=== PATIENT | female | born 1945 | race Caucasian/White ===

== ENCOUNTER 2021-12-03 08:33 | Emergency (ER) | payer MEDICARE, SELFPAY ==
--- NOTE | ~2021-12-03 | XR_ITS ---
EXAMINATION: XR WRIST AND HAND-RIGHT CLINICAL INFORMATION: History of fall. Pain. COMPARISON: None TECHNIQUE: 4 views of the right hand and right wrist. FINDINGS: Marked diffuse osteopenia. Comminuted fractures are present at the distal right radial metaphysis with extension of fracture line to the articular surface. The distal radioulnar alignment is intact. The radiocarpal alignments are intact. Severe osteoarthrosis of the first carpometacarpal joint and significant overlying soft tissue swelling. Significant osteoarthrosis of the DIP joints of the second and third digits. XR/XR hand wrist RT IMPRESSION: 1. Abnormal study. Marked diffuse osteopenia and comminuted fractures are noted at the distal right radial metaphysis with extension of fracture line to the articular surface. 2. Severe osteoarthrosis of the first carpometacarpal joint and osteoarthrosis of the DIP joints of the second and third digits.
[2021-12-03 08:33] VITALS: BP 108/59; PULSE 64; RESP 18; TEMP 36.3; O2SAT 96; BMI 31.7
--- NOTE | 2021-12-03 09:35 | ED_ITS ---
HPI - Extremity Problem General Chief complaint: Extremity Injury, Upper Stated complaint: Fall T-1/ R wrist pain Time Seen by Provider: 12/03/21 08:45 Source: patient Mode of arrival: ambulatory Limitations: no limitations History of Present Illness HPI Narrative: 76-year-old female right hand dominant with a history of asthma, high blood pressure, high cholesterol, anxiety, depression, chronic back pain on Dilaudid, hypothyroidism, breast cancer status post resection and radiation here with reports of right hand and wrist pain after a mechanical fall yesterday. Patient tells me she went to open the Fridge and when she turned around she lost her balance falling catching herself with her right hand. No head injury or loss of consciousness. Patient is on 81 mg of aspirin daily. Patient denies any heada zia, neck pain, weakness, numbness, tingling. She does report pain in the right hand and wrist which is worsened with movement. Related Data Allergies Allergy/AdvReac Type Severity Reaction Status Date / Time No Known Allergies Allergy Unverified 04/13/20 14:56 [No Known Allergies*] Review of Systems Review of Systems: Yes all other systems are reviewed and are negative Constitutional: Constitutional: Reports no additional constitutional complaints, Denies body ache(s), Denies chills, Denies fever(s), Denies headache(s) and Denies weakness Eyes: Eyes: Reports no additional eye complaints and Denies change in vision ENT: Reports system reviewed and no additional complaints, except as documented, Denies dizziness, Denies headache(s), Denies nasal congestion, Denies nasal discharge and Denies neck pain Cardiovascular: Cardiovascular: Reports no additional cardiovascular complaints, Denies chest pain, Denies leg edema and Denies dyspnea Respiratory: Respiratory: Reports no additional respiratory complaints, Denies cough and Denies dyspnea Gastrointestinal: Gastrointestinal: Reports no additional gastrointestinal complaints, Denies abdominal pain, Denies diarrhea, Denies nausea and Denies vomiting Genitourinary: Genitourinary: Reports no additional female genitourinary complaints and Denies urinary incontinence Musculoskeletal: Musculoskeletal: Reports no additional musculoskeletal complaints, Denies back pain, Reports arthralgias, Reports joint swelling, Reports limited range of motion, Denies neck pain, Denies numbness and Denies tingling Integumentary/Breasts: Skin/Breast: Reports system reviewed and no additional complaints, except as docu and Denies rash Neurologic: Reports system reviewed and no additional complaints, except as d ocumented, Denies Abnormal speech present, Denies dizziness, Denies headache(s), Denies numbness, Denies tingling and Denies weakness PMFSH Past Medical History Attestation statement: The following information was validated with the patient. Source: old records reviewed and nursing notes reviewed Social History Social History Advance Directives: Yes Advance Directives Information Provided: Yes Advance Directives on File: No Physical Exam Vital Signs: Vital Signs: Last Vital Signs Temp 97.3 F 12/03/21 08:33 Pulse 64 12/03/21 08:33 Resp 18 12/03/21 08:33 BP 108/59 L 12/03/21 08:33 Pulse Ox 96 12/03/21 08:33 BMI result Body Mass Index 31.7 Const: General: cooperative, healthy appearing, comfortable and no acute distress Orientation/consciousness: patient oriented x3 Limitations: no limitations HEENT: Head: Yes normal to inspection Ears: hearing grossly normal bilaterally General nose exam: Normal external nose present Face and sinus: Yes normal facial exam Mouth: Normal oral and palatal mucosa present Throat: Yes posterior oropharynx normal Eyes: General: appearance normal, both eyes and all related structures Pupils: Equal, round and reactive pupils present Neck: Neck: Yes normal visual inspection Chest: Chest palpation & inspection: normal inspection of the chest Resp: Effort & Inspection: normal respiratory effort Auscultation: clear to auscultation bilaterally Cardio: Rate: regular rate Rhythm: regular rhythm Peripheral pulses: Peripheral pulses 2+ throughout GI: Inspection: Yes normal to inspection Palpation (GI): Soft to palpation and nontender Auscultation: normal bowel sounds Back/Spine/Pelvis: Thoracic/Lumbar Spine: thoracic and lumbar spine normal to inspection Skin: General skin exam: no rashes or lesions noted Neuro: General: patient oriented x3, no focal motor deficits and normal sensation to monofilament Cranial nerves: Yes CN's II-XII intact bilaterally, Yes Equal, round and reactive pupils present, Yes Bilaterally intact EOM present, Yes Nystagmus not present, Yes Normal facial strength present and Yes Midline tongue present Cognition (Neuro): normal cognition Speech: No Abnormal speech present Gait exam (Neuro): Normal gait present Motor exam (neuro): 5/5 motor strength present throughout Sensory Exam: Normal double simultaneous stimulation for sensation Extrem: Other: Swelling/deformity/pain to distal right wrist. 2+ radial and ulnar pulses. Sensation is intact distally. Limited range of motion due to pain General: Yes normal to inspection Course Course Course Narrative: 76 yo female right hand dominant here with right hand/wrist pain/swelling after a mechanical fall yesterday. No head injury or LOC. Will check x-rays Reevaluation(s) Reevaluation #1: X-ray show a distal radial fracture with intra-articular involvement. I discussed the case with Dr. Boyer. Recommend sugar-tong splint, sling and follow-up with orthopedics outpatient. Patient takes hydromorphone 4 mg 3 times daily for chronic pain. She is prescribed this Friday her primary care doctor. She is asking me if she can take additional doses. I did recommend she speak to them prior to doing this. She can add Tylenol in the meantime. Reviewed rice. Reviewed worrisome signs and symptoms of when to return to the emergency department. Comfortable discharge home. MDM - Extremity (Nontraumatic) Medical Records Attestation: I reviewed the patient's medical records. Lab Data Attestation: I reviewed the patient's lab results. Imaging Data right hand/wrist x-ray: Attestation: I personally reviewed and interpreted this imaging study as follows: Radiologist's impression: 1. Abnormal study. Marked diffuse osteopenia and comminuted fractures are noted at the distal right radial metaphysis with extension of fracture line to the articular surface. 2. Severe osteoarthrosis of the first carpometacarpal joint and osteoarthrosis of the DIP joints of the second and third digits Procedures Orthopedic Splinting/Casting Injury #1: Side: right Upper Extremity Injury Location: wrist Upper Extremity Immobilizer: sugar tong splint Additional Comments: sling splint by Estrella Paulson [facility] ED techs Discharge Plan Discharge Clinical Impression: Distal radius fracture, right Patient Disposition: Home, Self-Care Instructions: Arm Fracture in Adults (ED) Additional Instructions: This sling is to be used with moving around This splint must stay on at all times. Avoid getting the splint wet Please elevate your arm as much as possible Take your home pain medications You may continue with Tylenol as well Call orthopedics for follow-up appointment Referrals: [facility] [Provider Group] - 1 week Interventions: ED Discharge Assessment Last Done: 12/03/21 11:02 Discharge Date/Time: 12/03/21 11:03
== END 2021-12-03 11:03 | disposition home or self-care (01) ==
PROVIDERS: Emergency Provider Emergency Medicine; PCP Internal Medicine
DX: S52.91XA Unspecified fracture of right forearm, initial encounter for closed fracture (principal); G89.29 Other chronic pain; M54.9 Dorsalgia, unspecified; J45.909 Unspecified asthma, uncomplicated; Z79.82 Long term (current) use of aspirin; Z79.891 Long term (current) use of opiate analgesic; W18.30XA Fall on same level, unspecified, initial encounter; Y93.9 Activity, unspecified; Y92.000 Kitchen of unspecified non-institutional (private) residence as the place of occurrence of the external cause; Y99.9 Unspecified external cause status
CPT/HCPCS: 29125; 73110; 73130; 99284

== ENCOUNTER 2021-12-07 07:35 | Outpatient (REF) | payer MEDICARE, SELFPAY ==
--- NOTE | ~2021-12-07 | XR_ITS ---
EXAMINATION: XR WRIST, RIGHT CLINICAL INFORMATION: Pain COMPARISON: Radiographs right wrist and hand 12/03/2021 TECHNIQUE: PA, lateral, and oblique views of the right wrist. FINDINGS: Diffuse osteopenia. Comminuted intra-articular fracture of the distal radius is stable in orientation. Carpal rows are maintained without carpal bone fracture. Severe degenerative changes of the first carpal metacarpal joint with associated subluxation of the fifth metacarpal. Degenerative changes of the IP joints within the fifth finger are suboptimally visualized but demonstrate prominent degenerative changes. There appears to be mild subluxation of the distal phalanx of the fifth digit. XR/XR wrist RT min 3V IMPRESSION: Stable appearance of comminuted intra-articular fracture of the distal radius.
== END 2021-12-07 07:36 | disposition home or self-care (01) ==
LOC: HO.HOSX 07:35
PROVIDERS: Visit Provider Physician Assistant
DX: S52.501A Unspecified fracture of the lower end of right radius, initial encounter for closed fracture (principal); X58.XXXA Exposure to other specified factors, initial encounter; Y93.9 Activity, unspecified; Y92.9 Unspecified place or not applicable; Y99.9 Unspecified external cause status
CPT/HCPCS: 29085; 29125; 73110; 99202

== ENCOUNTER → 2021-12-10 12:19 | Outpatient (BNVA) | payer MEDICARE, SELFPAY | PROVIDERS: PCP Internal Medicine; Visit Provider Physician Assistant | DX: S52.501D Unspecified fracture of the lower end of right radius, subsequent encounter for closed fracture with routine healing (principal) | CPT/HCPCS: 99212 ==

== ENCOUNTER 2021-12-18 07:37 | Outpatient (REF) | payer MEDICARE, SELFPAY ==
--- NOTE | ~2021-12-18 | XR_ITS ---
EXAMINATION: XR WRIST, RIGHT CLINICAL INFORMATION: Pain COMPARISON: X-ray 12/24/2021 TECHNIQUE: PA, lateral, and oblique views of the right wrist. FINDINGS: Diffuse osteopenia. Comminuted intra-articular distal radial fracture is stable in orientation. Fracture planes remaining visible. Severe first CMC arthritis, with lateral subluxation of the first metacarpal base with respect to the trapezium. Severe triscaphe joint arthritis. Stable apparent mild subluxation of the fifth distal phalanx at the fifth DIP joint. XR/XR wrist RT min 3V IMPRESSION: Similar appearance of a comminuted intra-articular distal radial fracture.
== END 2021-12-18 07:38 | disposition home or self-care (01) ==
LOC: HO.HOSX 07:37
PROVIDERS: Visit Provider Physician Assistant
DX: S52.501D Unspecified fracture of the lower end of right radius, subsequent encounter for closed fracture with routine healing (principal)
CPT/HCPCS: 29085; 73110; 99212

== ENCOUNTER 2022-01-04 07:05 | Outpatient (REF) | payer MEDICARE, SELFPAY ==
--- NOTE | ~2022-01-04 | XR_ITS ---
EXAMINATION: XR WRIST, RIGHT CLINICAL INFORMATION: Fracture COMPARISON: Previous rays from November 2021 TECHNIQUE: PA, lateral, and oblique views of the right wrist. FINDINGS: The comminuted intra-articular fracture of the right distal radius appears unchanged in alignment. There is some indistinctness of fracture lines suggestive of evidence of healing. There is severe arthritis and subluxation at the first [facility] joint and arthritis at the trapezoid trapezium scaphoid joints. Carpal bones are otherwise normal. There is diffuse soft tissue swelling about the wrist. XR/XR wrist RT min 3V IMPRESSION: Healing comminuted intra-articular right distal radius fracture.
== END 2022-01-04 07:06 | disposition home or self-care (01) ==
LOC: HO.HOSX 07:05
PROVIDERS: Visit Provider Physician Assistant
DX: S52.501D Unspecified fracture of the lower end of right radius, subsequent encounter for closed fracture with routine healing (principal)
CPT/HCPCS: 73110; 99212

== ENCOUNTER 2022-02-04 08:33 | Outpatient (REF) | payer MEDICARE, SELFPAY | END 2022-02-04 08:34 | disposition home or self-care (01) | LOC: HO.HOSX 08:33 | PROVIDERS: Visit Provider Physician Assistant | DX: Z13.89 Encounter for screening for other disorder (principal) ==

== ENCOUNTER 2022-02-05 07:48 | Outpatient (REF) | payer MEDICARE, SELFPAY ==
--- NOTE | ~2022-02-05 | XR_ITS ---
EXAMINATION: XR WRIST, RIGHT CLINICAL INFORMATION: Distal radial fracture. Follow-up. COMPARISON: Radiographs right wrist 01/04/2022, 12/18/2021. TECHNIQUE: Right wrist is imaged in 3 views. FINDINGS: The comminuted intra-articular distal right radial fracture is unchanged in alignment. Fracture lines are less distinct and there is some callus seen consistent with healing fracture. There is no interval new fracture or destructive process. Prominent arthropathy lateral carpus again demonstrated. XR/XR wrist RT min 3V IMPRESSION: Healing fracture distal right radius. No change in alignment.
== END 2022-02-05 07:49 | disposition home or self-care (01) ==
LOC: HO.HOSX 07:48
PROVIDERS: Visit Provider Physician Assistant
DX: S52.501D Unspecified fracture of the lower end of right radius, subsequent encounter for closed fracture with routine healing (principal)
CPT/HCPCS: 73110; 99212

== ENCOUNTER 2022-03-07 07:54 | Outpatient (REF) | payer MEDICARE, SELFPAY ==
--- NOTE | ~2022-03-07 | XR_ITS ---
EXAMINATION: XR WRIST, RIGHT CLINICAL INFORMATION: Pain. COMPARISON: None TECHNIQUE: PA, lateral, and oblique views of the right wrist. FINDINGS: There is severe loss of the 1st carpometacarpal joint space with moderate osteophytosis. No visible acute fracture or dislocation is seen. There is severe osteopenia. The soft tissues are normal. XR/XR wrist RT min 3V IMPRESSION: Moderate degenerative osteoarthritic changes of the 1st carpometacarpal joint space. No acute fracture or dislocation seen.
== END 2022-03-07 07:55 | disposition home or self-care (01) ==
LOC: HO.HOSX 07:54
PROVIDERS: Visit Provider Physician Assistant
DX: S52.501A Unspecified fracture of the lower end of right radius, initial encounter for closed fracture (principal)
CPT/HCPCS: 73110; 99212

== ENCOUNTER 2022-06-11 11:40 | Emergency (ER) | payer MEDICARE, SELFPAY ==
--- NOTE | ~2022-06-11 | XR_ITS ---
EXAMINATION: XR CHEST CLINICAL INFORMATION: Chest pain COMPARISON: Previous chest x-ray most recent August 2016 TECHNIQUE: Frontal view of the chest was obtained. FINDINGS: The cardiac silhouette does not appear enlarged. The thoracic aorta is calcified. Hilar and mediastinal contours are otherwise unremarkable. There is question of a right upper lobe nodule measuring 4 x 8 mm overlying the fourth posterior rib. This is unchanged from 2017 exam and therefore probably benign. There is question of a right suprahilar nodule versus a vessel on end over lying the right anterior second rib. The lungs are otherwise clear. There is no pleural effusion or pneumothorax. No acute bone abnormality. XR/XR chest 1V IMPRESSION: No evidence for acute disease in the chest. Question small right pulmonary nodules.
[2022-06-11 11:51] VITALS: BP 131/94; BP 180/100; PULSE 70; PULSE 76; RESP 26; TEMP 37.4; O2SAT 95; BMI 33.4
[2022-06-11 11:54] VITALS: O2SAT 97
--- NOTE | 2022-06-11 12:07 | ECG_ITS ---
Test Reason : sHORTNESS OF BREATH Blood Pressure : / mmHG Vent. Rate : 077 BPM Atrial Rate : 077 BPM P-R Int : 160 ms QRS Dur : 094 ms QT Int : 408 ms P-R-T Axes : 034 012 139 degrees QTc Int : 461 ms Normal sinus rhythm Minimal voltage criteria for LVH, may be normal variant ( Jose product ) ST elevation in Anterior leads Possible * ACUTE OR T wave abnormality, consider lateral ischemia Abnormal ECG When compared with ECG of 22-SEP-2016 11:17, ST elevation now present in Anterior leads T wave inversion no longer evident in Inferior leads T wave inversion now evident in Anterolateral leads Referred By: Jaky Balderas Electronically Signed By:GLORY VERONICA MD
[2022-06-11 12:23] VITALS: BP 113/78; PULSE 78; RESP 18; O2SAT 97
--- NOTE | 2022-06-11 12:24 | ED.SOB ---
HPI - SOB/Dyspnea General Chief Complaint: Dyspnea Stated Complaint: RESP DISTRESS,NEB NOW, 95% RA Time Seen by Provider: 06/11/22 11:45 History of Present Illness HPI Narrative: Patient is a 76-year-old female presents today with having chest tightness shortness of breath. Patient has a history of smoking. History of COPD. Baseline not on oxygen. Vaccinated for COVID. Complaining of increasing shortness of breath over last 3 days. Some tightness of her chest. Patient is from home. Related Data Home Medications Medication Instructions Recorded Confirmed albuterol sulfate 90 mcg/actuation 0 mcg inhalation 12/07/21 aerosol inhaler (Ventolin HFA) budesonide 160 mcg-glycopyr 9 inh inhalation 12/07/21 mcg-formot 4.8 mcg/actuation HFA inhaler (Breztri Aerosphere) carvedilol 25 mg tablet 25 mg PO BID 12/07/21 clopidogrel 75 mg tablet 75 mg PO DAILY 12/07/21 ezetimibe 10 mg tablet 10 mg PO DAILY 12/07/21 fluoxetine 40 mg capsule 40 mg PO DAILY 12/07/21 levothyroxine 125 mcg tablet 125 mcg PO DAILY 12/07/21 pantoprazole 20 mg tablet,delayed 20 mg PO DAILY 12/07/21 release rosuvastatin 10 mg tablet 10 mg PO BEDTIME 12/07/21 furosemide 20 mg tablet 20 mg PO DAILY 02/05/22 Allergies Allergy/AdvReac Type Severity Reaction Status Date / Time No Known Allergies Allergy Verified 06/11/22 11:53 [No Known Allergies*] Review of Systems Review of Systems: Positive shortness of breath. Positive generalized malaise Yes all other systems are reviewed and are negative FORMERLY [facility], [facility] Past Medical History Attestation statement: The following information was validated with the patient. 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 Oriented X3. No acute distress. Eyes: Pupils equal, round and reactive to light. ENT: Pharynx normal. Neck: Normal inspection. Neck supple. No lymph nodes noted. No crepitus CVS: Normal heart rate and rhythm. Pulses normal. Normal S1 and S2 Respiratory: Diminished breath sounds bilaterally Abdomen: Soft and nontender. No rigidity. No distention. good BS x4 Skin: Skin warm and dry. Normal skin color. Normal skin turgor. Extremities: No lower extremity edema. Neurovascular intact to all extremities. No Lacerations. No Rash Neuro: Oriented X 3. No motor deficit. No sensory deficit. Moving all extermities. No slurred speech Medications Administered Discontinued Medications Generic Name Dose Route Start Last Admin Trade Name Freq PRN Reason Stop Dose Admin Albuterol/Ipratropium 3 ml 06/11/22 12:26 06/11/22 12:27 Albuterol/Iprat 2.5/0.5mg 3 Ml Ampul.Neb INHALE 06/11/22 12:27 3 ml ONCE ONE Administration MDM - SOB/Dyspnea MDM Narrative Medical decision making narrative: Patient's EKG showed a significant ST segment elevation over the anterior lead namely V2 V3 V4. There is no reached a pickle changes noted. This acute finding was relayed to [facility] interventional cardiology. Started patient on Brilinta, Lipitor, aspirin. Discussed with patient risk of transfer. Agree with plan. Will send patient to [facility] for acute STEMI. Patient most likely also has some evidence for COPD. Some steroid was given prior for tightness in the lungs. A neb treatment was given prior to the EKG. [facility] interventional cardiology accepted patient. Patient will be going straight to the director of cardiac cath lab. Requested for dose of heparin. Will be ordered. Critical Care Time Critical Care Time Critical Care Time: Yes Total Critical Care Time: 40 Attestation: I have personally provided 40 minutes of critical care time exclusive of time spent on separately billable procedures. Time includes review of lab data, radiology results, discussion with consultants, and monitoring for potential decompensation. Interventions were performed as documented above Discharge Plan Discharge Clinical Impression: ST elevation (STEMI) myocardial infarction, COPD (chronic obstructive pulmonary disease) Patient Disposition: [facility] Transfer Details: stemi Prescriptions: No Action furosemide 20 mg tablet 20 mg PO DAILY albuterol sulfate [Ventolin HFA] 90 mcg/actuation HFA aerosol inhaler 0 mcg inhalation rosuvastatin 10 mg tablet 10 mg PO BEDTIME ezetimibe 10 mg tablet 10 mg PO DAILY levothyroxine 125 mcg tablet 125 mcg PO DAILY Breztri Aerosphere 160-9-4.8 mcg/actuation HFA aerosol inhaler inhalation fluoxetine 40 mg capsule 40 mg PO DAILY pantoprazole 20 mg tablet,delayed release (DR/EC) 20 mg PO DAILY clopidogrel 75 mg tablet 75 mg PO DAILY carvedilol 25 mg tablet 25 mg PO BID
--- NOTE | 2022-06-11 12:25 | PC.NURSE ---
@ 12:25 DR REYNAGA REQUEST CALL FOR STEMI [phone] CALLED [phone] LEFT ON STAT PAGER
[2022-06-11] MEDS: Albuterol/Iprat 2.5/0.5MG 3 ML AMPUL.NEB INHALE (12:27)
[2022-06-11 12:28] VITALS: PULSE 76; RESP 24; O2SAT 96
--- NOTE | 2022-06-11 12:28 | PC.NURSE ---
@1228PM MARY ALICE FROM THE [facility] STAT PAGE GETS DR NATARAJAN ON THE LINE FOR DR JUHI REYNAGA TAKES OVER CALL RIGHT AWAY
[2022-06-11] MEDS: Aspirin 81 MG TAB.CHEW 324 MG PO (12:31)
[2022-06-11] MEDS: Atorvastatin Calcium 80 MG TABLET PO (12:32)
[2022-06-11] MEDS: Ticagrelor 90 MG TABLET 180 MG PO (12:33)
[2022-06-11] MEDS: methylPREDNISolone Sod Succ 125 MG/2 ML VIAL IVPUSH (12:34)
[2022-06-11 12:36] LABS: MANUAL DIFF FLAG NO
--- NOTE | 2022-06-11 12:39 | PC.NURSE ---
During triage pt placed on juke box servicer with ?of ST elevation, EKG strip from EMS noted without ST elevation, EKG ordered and obtained by this RN. Per Dr REYNAGA pt to be transferred to [facility] for further eval/treat. Meds given as charted. Pt continues to deny any chest pain at this time but reports tightness. Cough continues, congested but non prductive. Other VSS at this time. Skin color pink, skin warm and dry. Second IV access obtained, 20g to right ac.
--- OUTSIDE RECORDS SUMMARY | 2022-06-11 12:40 | XMS_ITS | Continuity of Care Document ---
:1945 Author Organization [facility] Adult Address [address] [place] [address]- Care Team Providers Name Role Phone Christina BAZAN, [place] Dao Primary Care Physician Encounter [facility] [place] Date(s): 11/02/20 - 11/09/20 [facility] [address] [place] [address]- Attending Physician: Not on Staff, Attending MD Allergies, Adverse Reactions, Alerts Substance Reaction Severity Status spironolactone1 Active lisinopril2 Active atorvastatin3 Active amLODIPine4 Active 5eeliw0ssorodo jqsqgpnt2iznu7nwqfa Immunizations Given and Recorded Vaccine Date Status Refusal Reason SARS-CoV-2 (COVID-19) mRNA BNT-162b2 vac 09/27/20 Recorde d SARS-CoV-2 (COVID-19) mRNA BNT-162b2 vac 09/19/20 Given SARS-CoV-2 (COVID-19) mRNA BNT-162b2 vac 09/19/20 Recorde d influenza virus vaccine, inactivated 05/16/20 Given influenza virus vaccine, inactivated 07/19/19 Given influenza virus vaccine, inactivated 04/14/18 Recorded influenza virus vaccine, inactivated1 05/27/17 Given influenza virus vaccine, inactivated2 05/17/16 Given influenza virus vaccine, inactivated 07/26/15 Given influenza virus vaccine, inactivated 04/19/14 Given influenza virus vaccine, inactivated 07/15/13 Given influenza virus vaccine, inactivated 04/16/12 Given influenza virus vaccine, inactivated 04/17/11 Given pneumococcal 13-valent vaccine 08/30/14 Recorded Hepatitis A Adult Vaccine3 06/15/12 Given Hepatitis A Adult Vaccine 12/26/11 Given FluLaval (oldterm) 04/08/12 Given FluLaval (oldterm) 05/31/10 Given tetanus/diphtheria/pertussis, acel(Tdap) 03/18/12 Given Hepatitis B Vaccine (old term) 02/03/12 Given Hepatitis B Vaccine (old term) 02/03/12 Given hepatitis B adult vaccine 12/26/11 Given Fluzone (oldterm) 08/04/09 Given Influenza Virus Vaccine (oldterm) 06/03/08 Given Influenza Inactive (IM) (oldterm) 06/03/07 Given tetanus-diphtheria toxoids (Td) 12/01/06 Given Pneumococcal Vaccine (oldterm)4 06/03/98 Given Not Given Vaccine Date Status Refusal Reason pneumococcal 23-valent vaccine 08/13/14 Not Given P atient Refuses 1Result Comment: [05/27/2017] [facility] [id number]/Late Reason: Wan to Standard Admin [id number] Note: #24Admin Note: historical data Medications Aspirin = 81 mg, By Mouth, Daily, 0 Refills, Maintenance Start Date: 12/26/11 Status: OrderedBevespi Aerosphere 9 mcg-4.8 mcg/inh inhalation aerosol 2 puffs, Inhalation, 2 times a day, 4 by 28 doses, # 5.9 Gm, 11 Refills, Maintenance, 04/25/20 11:19:00 EDT, [facility] # [facility], 2 puffs Inhalation 2 times a day,Instr:4 by 28 doses, 149.9, cm, 02/14/20 11:11:00 EDT, Height, 68.9, kg, 07/12/19 14:56:... Start Date: 04/25/20 Status: OrderedBevespi Aerosphere 9 mcg-4.8 mcg/inh inhalation aerosol See Instructions, INHALE 2 PUFFS BY MOUTH TWO TIMES A DAY, # 10.7 Gm, 11 Refills, Maintenance, [facility], [facility], INHALE 2 PUFFS BY MOUTH TWO TIMES A DAY, 149.9, cm, 10/26/20 14:49:00 EDT, Height, 68.9, kg, 07/12/19 14:56:00 EST, Dry Weight Start Date: 10/26/20 Status: Orderedcalcium (as carbonate) 500 mg oral tablet, chewable 1 tablet = 500 mg, Chew, Daily, # 150 tablet, 0 Refills, Maintenance, 09/21/19 14:07:00 EST, Chew Tablet Start Date: 09/21/19 Status: Orderedchlorthalidone 25 mg oral tablet 25 mg, 1, tablet, By Mouth, Daily, # 30 tablet, Refills 1, Tot. Refills 1, Maintenance, 10/26/20 14:56:00 EDT, Route to Pharmacy Electronically, [facility] # [facility], Partial fill upon patient request if the prescription is for a schedule II opioid feliberto... Start Date: 10/26/20 Status: OrderedFlovent HFA 110 mcg/inh inhalation aerosol 2 puffs, Inhalation, 2 times a day, # 1 each, 5 Refills, Maintenance, 08/22/20 18:56:00 EST, Aerosol, [facility] # [facility], 149.9, cm, 06/07/20 11:48:00 EST, Height, 68.9, kg, 07/12/19 14:56:00 EST, DryWeight Start Date: 08/22/20 Status: OrderedFLUoxetine 40 mg oral capsule 1 capsule = 40 mg, By Mouth, Daily, # 30 capsule, 5 Refills, Maintenance, 08/13/20 10:39:00 EST, Capsule, [facility] # [facility], 149.9, cm, 06/07/20 11:48:00 EST, Height, 68.9, kg, 07/12/19 14:56:00 EST,Dry Weight Start Date: 08/13/20 Status: Orderedhydrocortisone 2.5% topical cream 1 application, Topically, 3 times a day, # 30 Gm, 3 Refills, Maintenance, 08/10/18 11:58:13 EST, Cream, 1 application Topically 3 times a day Start Date: 08/10/18 Status: OrderedHYDROmorphone 4 mg oral tablet 1 tablet = 4 mg, By Mouth, Every 8 hours, # 84 tablet, 0 Refills, Maintenance, 10/31/20 8:03:00 EDT,Tablet, [facility] # 50, partial fill upon request, 11/07/20, 149.9, cm, 10/26/20 14:49:00 EDT, Height, 68.9, kg, 07/12/19 14:56:00 EST, Dry Weight Start Date: 10/31/20 Stop Date: 11/28/20 Status: Orderedlevothyroxine 125 mcg (0.125 mg) oral tablet 1 tablet = 125 mcg, By Mouth, Daily, # 30 tablet, 5 Refills, Maintenance, 10/10/20 7:25:00 EDT, Tablet, [facility] # [facility], 149.9, cm, 08/28/20 14:48:00 EST, Height, 68.9, kg, 07/12/19 14:56:00 EST, Dry Weight Start Date: 10/10/20 Status: Orderedmetoprolol 25 mg oral tablet 25 mg, 1, tablet, By Mouth, 2 times a day, # 60 tablet, Refills 2, Tot. Refills 2, Maintenance, 08/13/20 10:39:00 EST, Route to Pharmacy Electronically, [facility] # 50, 149.9, cm, 06/07/20 11:48:00 EST, Height, 68.9, kg, 07/12/19 14:56:00 EST, Dr... Start Date: 08/13/20 Status: OrderedPriLOSEC OTC 20 mg oral delayed release tablet 1 tablet = 20 mg, By Mouth, Daily, # 90 tablet, 0 Refills, Maintenance, 11/06/20 16:02:00 EDT, CR Tablet, [facility] # 50, 149.9, cm, 10/26/20 14:49:00 EDT, Height, 68.9, kg, 07/12/19 14:56:00 EST,Dry Weight Start Date: 11/06/20 Status: Orderedrosuvastatin 10 mg oral capsule 1 capsule = 10 mg, By Mouth, Daily, # 30 capsule, 11 Refills, Maintenance, 08/29/20 15:01:00 EST, Capsule, [facility] # 50, Partial fill upon patient request if the prescription is for a schedule II opioid drug., 149.9, cm, 08/28/20 14:48:00 EST,... Start Date: 08/29/20 Status: OrderedVentolin HFA 108 mcg/inh inhalation aerosol with adapter 2 puffs, Inhalation, 4 times a day, PRN for wheezing, # 1 each, 5 Refills, Maintenance, 10/18/20 9:01:00 EDT, Aerosol, [facility], 149.9, cm, 08/28/20 14:48:00 EST, Height, 68.9, kg, 07/12/19 14:56:00 EST, Dry Weight Start Date: 10/18/20 Status: OrderedVitamin B12 1000 mcg oral tablet See Instructions, 1 tablet By Mouth Daily, # 60 Doses, 11 Refills, Maintenance, 02/28/16 20:56:48 EDT Start Date: 02/28/16 Status: OrderedVitamin D3 1000 intl units oral tablet 1 tablet = 1,000 International_Units, By Mouth, Daily, # 30 tablet, 0 Refills, Maintenance, 09/21/2013:06:00 EST, Tablet Start Date: 09/21/19 Status: OrderedZetia 10 mg oral tablet 1 tablet = 10 mg, By Mouth, Daily, # 30 tablet, 5 Refills, Maintenance, 11/06/20 16:02:00 EDT, Tablet, [facility] # [facility], 149.9, cm, 10/26/20 14:49:00 EDT, Height, 68.9, kg, 07/12/19 14:56:00 EST, Dry Weight Start Date: 11/06/20 Status: Ordered Problem List Condition Effective Dates Status Health Status Informant Abnormal gait(Confirmed) Active Memory loss(Confirmed) Active Benign Essential Active Hypertension(Confirmed) Cecal bascule(Confirmed)1, 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/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 Active Cervical Spondylosis without Active Myelopathy MRI 2009(Confirmed) Chronic renal disease, stage Active III(Confirmed) 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)3, Active 4 Chronic Pain Syndrome(Confirmed)5, 6, Active 7, 8, 9, 10 Closed displaced fracture of third 04/17/15 Active metatarsal bone of right foot(Confirmed) Deficiency of vitamin B12(Confirmed)11 Active Coronary artery disease(Confirmed) Active Torn rotator cuff rt orthoi(Confirmed) 02/12/19 Active Diverticulosis, 07/12/19 Active sigmoid;colonoscopy(Confirmed) Essential familial Active hyperlipidemia(Confirmed) Ex-smoker, 1/2 ppd X23 years, quit Active 1997(Confirmed) Excessive weight gain(Confirmed)12 Active Fatty liver(Confirmed)13, 14 Active Limitation due to Active disability(Confirmed)15, 16 Opiate use(Confirmed) Active Gastro-esophageal reflux EGD Active 2011(Confirmed)17 Graves' disease Active opthalmopathy(Confirmed) History of peripheral artery 05/17/16 Active bypass(Confirmed)18 H/O compression fracture of sacrum Active 2014 anastranole(Confirmed)19 History of alcohol abuse(Confirmed)20, Active 21 H/O nausea(Confirmed) Active History of breast cancer left inf Active ductal lumpectomy/xrt/tamoxifen 2012(Confirmed)22, 23 History of (NSTEMI) 201511/10/15 Active TIBURCIO(Confirmed)24 Hyperkalemia(Confirmed) 03/08/19 Active 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)25 Impaired Fasting Glucose(Confirmed)26 06/03/07 Active Low back pain(Confirmed) Active Failed back syndrome, Active lumbar(Confirmed) Lung nodules remote Active stable(Confirmed)27, 28, 29 Lymphedema of both lower Active extremities(Confirmed) Depression, major(Confirmed)30, 31 Active Fx metatarsal rt second(Confirmed) 04/27/19 Active Normocytic normochromic Active anemia(Confirmed)32, 33 Osteopenia(Confirmed)34 Active PAD (peripheral artery Active disease)stenting 2015(Confirmed) Chronic prescription opiate Active use(Confirmed) Vitamin D Deficiency(Confirmed) Active 1per gastroenterology;pvnoomi2Qrcfemdp to gastroenterology no-show for kaynrurbose7gmv0 40%4chronic pefhjypkto9PHVQ:2 low ohxqr9DDYD test done,[employer] ukmxksl5cfxmvv repeat sdx; injections,fentanyl,morphine,oxycodone er8Dr Oh no surgery re neck,oelg5vhp Dr King,yesterday NO SURGERY, rx corsett,pool10 evaluated by two neurosurgeons,pain hozreykg75mhffb al91Hdthsb 24-hour urine brbphwhl77UZPD increased alpha2 pvxyoypoq30jkaeec iron,ferrritin,cderloplasmin; neg HEP a,B,V53kllxnel Oswestry Disability Index: 48% ( severe disability ) on 04/15/16; updated [place] Back Pain Scale:44 on 04/15/16; updated [place]: 7 on 6Initial Oswestry Disability Index: 48% ( severe disability ) on 11/24/14; initial [place] Back Pain Scale: 48 on 11/24/14; initial [place]: 5 on 11/24/1516egd . Bilateral common femoral artery endarterectomy. 3. Left common femoral artery patch angioplasty with PTFE. 4. 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 CURRENT THERAPY: Tamoxifen started in 11/17/14, prior anastrozole 11/2012- 09/2014, zoledronic acid, received 02/2015 and 08/2015.35linre16Arnxuqckfxppnw Summary Successful drug eluting stenting of the proximal LAD coronary artery with a 3.5X15 mm plus 3.0X8 mm Xience Alpine stents as described above. The second stent was needed to cover distal edge of th efirst stent in an overlapping fashion. The stents were post-dilated using a 3.5 mm non-compliant balloon.25 now hyperthyroid,exopthalmous;Dr MurphyJssblk42bqoobtl pre diabetes increased risk lczwmhqz15cwnrcx75kx stable;recheck 12 fdehch52lpnrw lung nodules on neck CT recheck 6 lyleey33PDO2v szn68LXf6 four low byqpv83ogwt normal,b12 low fit terst blr91abqwkhf D deficiency;correcting Vital Signs Most recent to oldest [Reference Range]: 1 Oxygen Saturation [94-100 %] 97 % (11/02/20 10:01 AM) Pulse Rate [55-90 bpm] 56 bpm (11/02/20 10:01 AM) Blood Pressure [90-138/55-84 mm Hg] 152/76 mm Hg *H* (11/02/20 10:01 AM) Blood pressure sites Arm, right (11/02/20 10:01 AM) Social History Social History Type Response 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
--- OUTSIDE RECORDS SUMMARY | 2022-06-11 12:40 | XMS_ITS | Continuity of Care Document ---
:1945 Author Organization [facility] Address [address] [place] [id number]- Care Team Providers Name Role Phone Christina BAZAN, [place] Dao Primary Care Physician Encounter [facility] [place] Date(s): 11/13/20 - 02/15/[address] [id number] Attending Physician: Daniel BAZAN, Sheryl Admitting Physician: Daniel BAZAN, Sheryl Allergies, Adverse Reactions, Alerts Substance Reaction Severity Status spironolactone1 Active lisinopril2 Active amLODIPine3 Active atorvastatin4 Active 4brxej4begsace hlfxvmjd9kpuay8xbul Immunizations Given and Recorded Vaccine Date Status [...] Given P atient Refuses 1Result Comment: [05/27/2017] [facility] [place] [id number]/Late Reason: Wan to Standard Admin [id number] Note: #24Admin Note: historical data Medications aspirin 81 mg oral delayed release tablet 81 mg, 1, tablet, By Mouth, Daily, Maintenance, 12/21/20 16:02:00 EDT, ; Start Date: 12/21/20 Status: OrderedBevespi Aerosphere 9 mcg-4.8 mcg/inh inhalation aerosol See Instructions, INHALE 2 PUFFS BY MOUTH TWO TIMES A DAY, # 10.7 Gm, 11 Refills, Maintenance, [facility], 30, INHALE 2 PUFFS BY MOUTH TWO TIMES A DAY, 149.9, cm, 10/26/20 14:49:00 EDT, Height, 68.9, kg, 07/12/19 14:56:00 EST, Dry Weight Start Date: 10/26/20 Status: Orderedcalcium (as carbonate) 500 mg oral tablet, chewable 1 tablet = 500 mg, Chew, Daily, 0 Refills, Maintenance, 09/21/19 14:07:00 EST, Chew Tablet Start Date: 09/21/19 Status: Orderedcarvedilol 6.25 mg oral tablet 6.25 mg, 1, tablet, By Mouth, 2 times a day, for 30 days, REPLACES METOPROLOL, # 60 tablet, Refills 11, Tot. Refills 11, Acute 02/03/22 12:32:00 EDT, 02/08/21 12:32:00 EDT, Route to Pharmacy Electronically, [facility] # [facility], REPLACES METOPROLOL, 14... Start Date: 02/08/21 Stop Date: 02/03/22 Status: Orderedchlorthalidone 25 mg oral tablet 25 mg, 1, tablet, By Mouth, Daily, # 30 tablet, Refills 1, Tot. Refills 1, Maintenance, 12/28/20 9:19:00 EDT, Route to Pharmacy Electronically, [facility] # [facility], Partial fill upon patient request ifthe prescription is for a schedule II opioid drug... Start Date: 12/28/20 Status: Ordereddocusate sodium 100 mg oral capsule 100 mg, 1, capsule, By Mouth, Daily, PRN, Maintenance, as needed for constipation, 12/21/20 16:05:00EDT, ; Start Date: 12/21/20 Status: OrderedFlovent HFA 110 mcg/inh inhalation aerosol See Instructions, INHALE 2 PUFFS TWO TIMES A DAY, # 12 Gm, 5 Refills, Maintenance, [facility] # [facility], 149, cm, 02/09/21 10:03:00 EDT, Height, 68.9, kg, 12/21/20 8:52:00 EDT, Dry Weight Start Date: 02/09/21 Status: OrderedFLUoxetine 40 mg oral capsule See Instructions, TAKE 1 CAPSULE BY MOUTH DAILY., # 30 capsule, 5 Refills, Maintenance, [facility] # [facility], 149, cm, 02/09/21 10:03:00 EDT, Height, 68.9, kg, 12/21/20 8:52:00 EDT, Dry Weight Start Date: 02/12/21 Status: Orderedhydrocortisone 2.5% topical cream 1 application, Topically, 3 times a day, # 30 Gm, 1 Refills, Maintenance, 01/09/21 12:15:00 EDT, Cream, [facility] # [facility], 1 application Topically 3 times a day, 149.9, cm, 01/09/21 12:01:00 EDT, Height, 68.9, kg, 12/21/20 8:52:00 EDT, Dry Weight Start Date: 01/09/21 Status: OrderedHYDROmorphone 4 mg oral tablet 1 tablet = 4 mg, By Mouth, Every 8 hours, # 84 tablet, 0 Refills, Maintenance, 01/16/21 10:45:00 EDT, Tablet, [facility] # [facility], partial fill upon request, 02/06/21, 149.9, cm, 01/09/21 15:17:00 EDT,Height, 68.9, kg, 12/21/20 8:52:00 EDT, Dry Weight Start Date: 01/16/21 Stop Date: 02/13/21 Status: OrderedImodium A-D 2 mg, By Mouth, Refills 0, Maintenance, 01/09/21 15:24:00 EDT, Partial fill upon patient request if the prescription is for a schedule II opioid drug. Start Date: 01/09/21 Status: Orderedlevothyroxine 125 mcg (0.125 mg) oral tablet 1 tablet = 125 mcg, By Mouth, Daily, # 30 tablet, 5 Refills, Maintenance, 10/10/20 7:25:00 EDT, Tablet, [facility] # [facility], 149.9, cm, 08/28/20 14:48:00 EST, Height, 68.9, kg, 07/12/19 14:56:00 EST, Dry Weight Start Date: 10/10/20 Status: OrderedoxyCODONE 5 mg oral tablet 5 mg, 1, tablet, By Mouth, Every 6 hours, PRN, # 5 tablet, Refills 0, Tot. Refills 0, Maintenance, Pain , Severe, 12/27/20 9:18:00 EDT, Route to Pharmacy Electronically, [facility], Partial fill upon patient request if the prescription i... Start Date: 12/27/20 Status: Orderedpantoprazole 20 mg oral delayed release tablet 1 tablet = 20 mg, By Mouth, Daily, # 90 tablet, 0 Refills, Maintenance, 01/22/21 13:33:00 EDT, CR Tablet, 149, cm, 01/18/21 11:04:00 EDT, Height, 68.9, kg, 12/21/20 8:52:00 EDT, Dry Weight Start Date: 01/22/21 Status: OrderedPlavix 75 mg oral tablet 75 mg, 1, tablet, By Mouth, Daily, # 90 tablet, Refills 0, Tot. Refills 0, Maintenance, 01/22/21 11:44:00 EDT, Route to Pharmacy Electronically, [facility] # [facility], 149, cm, 01/18/21 11:04:00 EDT, Height, 68.9, kg, 12/21/20 8:52:00 EDT, Dry Weight Start Date: 01/22/21 Status: Orderedrosuvastatin 10 mg oral capsule 1 capsule = 10 mg, By Mouth, Daily, # 30 capsule, 11 Refills, Maintenance, 08/29/20 15:01:00 EST, Capsule, [facility] # [facility], Partial fill upon patient request if the prescription is for a schedule II opioid drug., 149.9, cm, 08/28/20 14:48:00 EST,... Start Date: 08/29/20 Status: OrderedTylenol 325 mg oral tablet 650 mg, 2, tablet, By Mouth, Every 4 hours, PRN, # 24 tablet, Refills 0, Tot. Refills 0, Maintenance, Pain , Mild, 12/27/20 9:18:00 EDT, Route to Pharmacy Electronically, [facility], Partial fill upon patient request if the prescription... Start Date: 12/27/20 Status: OrderedVentolin HFA 108 mcg/inh inhalation aerosol with adapter 2 puffs, Inhalation, 4 times a day, PRN for wheezing, # 1 each, 1 Refills, Maintenance, 01/18/21 11:08:00 EDT, Aerosol, [facility] # [facility], 149, cm, 01/18/21 11:04:00 EDT, Height, 68.9, kg, 12/21/20 8:52:00 EDT, Dry Weight Start Date: 01/18/21 Status: OrderedVitamin B12 1000 mcg oral tablet See Instructions, 1 tablet By Mouth Daily, # 60 Doses, 11 Refills, Maintenance, 02/28/16 20:56:48 EDT Start Date: 02/28/16 Status: OrderedVitamin D3 1000 intl units oral tablet 1 tablet = 1,000 International_Units, By Mouth, Daily, 0 Refills, Maintenance, 09/21/19 14:06:00 EST, Tablet Start Date: 09/21/19 Status: OrderedZetia 10 mg oral tablet 1 tablet = 10 mg, By Mouth, Daily, # 30 tablet, 5 Refills, Maintenance, 11/06/20 16:02:00 EDT, Tablet, [facility], 149.9, cm, 10/26/20 14:49:00 EDT, Height, 68.9, kg, 07/12/19 14:56:00 EST, Dry Weight Start Date: 11/06/20 Status: Ordered Problem List Condition Effective Dates Status Health Status Informant Abnormal gait(Confirmed) Active Acute ischemic colitis 12/21/20 Active enterectomy(Confirmed) Memory loss(Confirmed) Active Benign Essential Active Hypertension(Confirmed) [...] 07/12/19 Active sigmoid;colonoscopy(Confirmed) Essential familial Active hyperlipidemia(Confirmed) Essential hypertension(Confirmed) Active Ex-smoker, 1/2 ppd X23 years, quit Active 1997(Confirmed) Excessive weight gain(Confirmed)12 Active Fatty liver(Confirmed)13, 14 Active Limitation due to Active disability(Confirmed)15, 16 Opiate use(Confirmed) Active Gastro-esophageal reflux EGD Active 2011(Confirmed)17 Graves' disease Active opthalmopathy(Confirmed) History of peripheral artery 05/17/16 Active bypass(Confirmed)18 H/O compression fracture of sacrum Active 2014 anastranole(Confirmed)19 History of alcohol abuse(Confirmed)20, Active 21 H/O nausea(Confirmed) Active History of breast cancer Left, IDC, Active pT1c pN0, ER/LA positive, Her-2/angelito negative, 2012(Confirmed)22, 23 History of (NSTEMI) 201511/10/15 Active TIBURCIO(Confirmed)24 S/P drug eluting coronary stent Active placement(Confirmed) Hyperkalemia(Confirmed) 03/08/19 Active 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)25 Impaired Fasting Glucose(Confirmed)26 11/7/07 Active Anemia, iron deficiency neg colo Active 2018.neg egd 2020 per gi (greef) no addtl workuyp(Confirmed) Low back pain(Confirmed) Active Failed back syndrome, Active lumbar(Confirmed) Lung nodules remote Active stable(Confirmed)27, 28, 29 Lymphedema of both lower Active extremities(Confirmed) Depression, major(Confirmed)30, 31 Active Fx metatarsal rt second(Confirmed) 04/27/19 Active Normocytic normochromic Active anemia(Confirmed)32, 33 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) Active Osteopenia(Confirmed)34 Active PAD (peripheral artery Active disease)stenting 2015(Confirmed) Chronic prescription opiate Active use(Confirmed) Vitamin D Deficiency(Confirmed) Active 1per gastroenterology;qbicpzq9Cutsgztq to gastroenterology no-show for abezslsqfyy2zlg9 40%4chronic rhvjadrajg0AMFP:2 low lkgmt2NBQT test done,[employer] dqumagn0ekisgy repeat sdx; injections,fentanyl,morphine,oxycodone er8Dr Oh no surgery re neck,hjvp1sbv Dr King,yesterday NO SURGERY, rx corsett,[place]10 evaluated by two neurosurgeons,pain nxtmqzhf70wozkv zb07[place] 24-hour urine jkwtqdol78IMSB increased alpha2 hdzddwxcu04pwlonm iron,ferrritin,cderloplasmin; neg HEP a,B,D83zcftzcd Oswestry Disability Index: 48% ( severe disability ) on 04/15/16; updated [place] Back Pain Scale:44 on 04/15/16; updated [place]: 7 on 6Initial Oswestry Disability Index: 48% ( severe disability ) on 11/24/14; initial [place] Back Pain Scale: 48 on 11/24/14; initial [place]: 5 on 7egd . Bilateral common femoral artery endarterectomy. 3. Left common femoral artery patch angioplasty with PTFE. 4. 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 CURRENT THERAPY: Tamoxifen started in 11/17/14, prior anastrozole 11/2012- 09/2014, zoledronic acid, received 02/2015 and 08/2015.82dtxks58Cxlmuxgzxtafxe Summary Successful drug eluting stenting of the proximal LAD coronary artery with a 3.5X15 mm plus 3.0X8 mm Xience Alpine stents as described above. The second stent was needed to cover distal edge of th efirst stent in an overlapping fashion. 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
--- OUTSIDE RECORDS SUMMARY | 2022-06-11 12:40 | XMS_ITS | Continuity of Care Document ---
:1945 Author Organization [facility] Address [address] [place] [address]- Care Team Providers Name Role Phone Chino Vasquez MD Primary Care Physician Encounter [facility] Date(s): 10/01/19 - 10/08/19 [facility] [address] [place] [address]- [facility] Encounter Diagnosis Benign Essential Hypertension (Discharge Diagnosis) - 10/01/19 Attending Physician: Chino Vasquez MD Allergies, Adverse Reactions, Alerts Substance Reaction Severity Status atorvastatin1 Active 1achy Immunizations Given and Recorded Vaccine Date Status Refusal Reason influenza virus vaccine, inactivated 07/19/19 Given influenza [...] Given P atient Refuses 1Result Comment: [05/27/2017] [facility] [id number]/Late Reason: Wan to Standard Admin Wetbt1Spfmw Note: #24Admin Note: historical data Medications Aspirin = 81 mg, By Mouth, Daily, 0 Refills, Maintenance Start Date: 12/26/11 Status: OrderedBevespi Aerosphere 9 mcg-4.8 mcg/inh inhalation aerosol 2 puffs, Inhalation, 2 times a day, 4 by 28 doses lot [id number] 05-14, # 1 Doses, 11 Refills, Maintenance, 02/12/19 10:52:38 EDT, 2 puffs Inhalation 2 times a day,Instr:4 by 28 doses; lot [id number] 05-14 Start Date: 02/12/19 Status: Orderedcalcium (as carbonate) 500 mg oral tablet, chewable 1 tablet = 500 mg, Chew, Daily, # 150 tablet, 0 Refills, Maintenance, 09/21/19 14:07:00 EST, Chew Tablet Start Date: 09/21/19 Status: OrderedFlovent HFA 110 mcg/inh inhalation aerosol 2 puffs, Inhalation, 2 times a day, # 1 each, 11 Refills, Maintenance, 02/12/19 10:52:12 EDT, Aerosol Start Date: 02/12/19 Status: OrderedFLUoxetine 40 mg oral capsule 1 capsule = 40 mg, By Mouth, Daily, # 30 capsule, 5 Refills, Maintenance, 08/16/19 11:35:00 EST, Capsule, [facility], 149.9, cm, 07/19/19 9:45:00 EST, Height, 68.9, kg, 07/12/19 14:56:00 EST, Dry Weight Start Date: 08/16/19 Status: Orderedhydrochlorothiazide-spironolactone 25 mg-25 mg oral tablet See Instructions, 1/2 tablet By Mouth Daily, # 15 tablet, 0 Refills, Maintenance, 09/21/19 14:31:00 EST, Tablet, [facility] # [facility], 149.9, cm, 09/21/19 14:02:00 EST, Height, 68.9, kg, 07/12/19 14:56:00 EST, Dry Weight Start Date: 09/21/19 Status: Orderedhydrocortisone 2.5% topical cream 1 application, Topically, 3 times a day, # 30 Gm, 3 Refills, Maintenance, 08/10/18 11:58:13 EST, Cream, 1 application Topically 3 times a day Start Date: 08/10/18 Status: OrderedHYDROmorphone 4 mg oral tablet 1 tablet = 4 mg, By Mouth, Every 8 hours, # 84 tablet, 0 Refills, Maintenance, 10/05/19 11:47:00 EDT, Tablet, [facility] # [facility], partial fill upon request, 10/12/19, 149.9, cm, 10/01/19 10:42:00 EST,Height, 68.9, kg, 07/12/19 14:56:00 EST, Dry Weight Start Date: 10/05/19 Stop Date: 11/02/19 Status: Orderedlevothyroxine 125 mcg (0.125 mg) oral tablet 1 tablet = 125 mcg, By Mouth, Daily, # 30 tablet, 2 Refills, Maintenance, 07/20/19 14:38:00 EST, Tablet, [facility] # [facility], 149.9, cm, 07/19/19 9:45:00 EST, Height, 68.9, kg, 07/12/19 14:56:00 EST, Dry Weight Start Date: 07/20/19 Status: Orderedmetoprolol 25 mg oral tablet 25 mg, 1, tablet, By Mouth, 2 times a day, # 60 tablet, Refills 5, Tot. Refills 5, Maintenance, 08/16/19 11:35:00 EST, Route to Pharmacy Electronically, [facility] # [facility], 149.9, cm, 07/19/19 9:45:00EST, Height, 68.9, kg, 07/12/19 14:56:00 EST, Dry... Start Date: 08/16/19 Status: OrderedPlavix 75 mg oral tablet 75 mg, 1, tablet, By Mouth, Daily in AM, # 30 tablet, Refills 5, Tot. Refills 5, Maintenance, 08/17/19 8:35:00 EST, Route to Pharmacy Electronically, [facility] # [facility], 149.9, cm, 07/19/19 9:45:00 EST, Height, 68.9, kg, 07/12/19 14:56:00 EST, Dry We... Start Date: 08/17/19 Status: Orderedpravastatin 10 mg oral tablet 2 tablet = 20 mg, By Mouth, Daily, # 30 tablet, 5 Refills, Maintenance, 05/11/19 9:20:40 EDT, Tablet, [facility] # [facility] Start Date: 05/11/19 Status: OrderedPriLOSEC OTC 20 mg oral delayed release tablet 1 tablet = 20 mg, By Mouth, Daily, # 90 tablet, 1 Refills, Maintenance, 08/17/19 10:42:00 EST, CR Tablet, [facility] # [facility], 149.9, cm, 07/19/19 9:45:00 EST, Height, 68.9, kg, 07/12/19 14:56:00 EST, Dry Weight Start Date: 08/17/19 Status: OrderedraNITIdine 150 mg oral tablet 1 tablet = 150 mg, By Mouth, 2 times a day, # 60 tablet, 11 Refills, Maintenance, 10/20/18 11:36:14 EDT, Tablet, replaces omeprazole Start Date: 10/20/18 Status: OrderedVentolin HFA 108 mcg/inh inhalation aerosol with adapter 2 puffs, Inhalation, 4 times a day, PRN for wheezing, # 1 each, 5 Refills, Maintenance, 04/19/19 11:53:54 EDT, Aerosol Start Date: 04/19/19 Status: OrderedVitamin B12 1000 mcg oral tablet See Instructions, 1 tablet By Mouth Daily, # 60 Doses, 11 Refills, Maintenance, 02/28/16 20:56:48 EDT Start Date: 02/28/16 Status: OrderedVitamin D3 1000 intl units oral tablet 1 tablet = 1,000 International_Units, By Mouth, Daily, # 30 tablet, 0 Refills, Maintenance, 09/21/2013:06:00 EST, Tablet Start Date: 09/21/19 Status: Ordered Problem List Condition Effective Dates Status Health Status Informant Abnormal gait(Confirmed) Active Memory loss(Confirmed) Active Benign Essential Active Hypertension(Confirmed) Cecal bascule(Confirmed)1, 2 05/06/14 Active Cervical Spondylosis without Active Myelopathy MRI 2009(Confirmed) Chronic back pain greater than 3 Active months duration(Confirmed) Chronic depression(Confirmed)3, 4 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)5, Active 6 Chronic Pain Syndrome(Confirmed)7, 8, Active 9, 10, 11, 12 Closed displaced fracture of third 04/17/15 Active metatarsal bone of right foot with routine healing(Confirmed) Deficiency of vitamin B12(Confirmed)13 Active Coronary artery disease(Confirmed) Active Torn rotator cuff rt orthoi(Confirmed) 02/12/19 Active Diverticulosis, 07/12/19 Active sigmoid;colonoscopy(Confirmed) Lower extremity edema(Confirmed) Active Essential familial Active hyperlipidemia(Confirmed) Ex-smoker, 1/2 ppd X23 years, quit Active 1997(Confirmed) Excessive weight gain(Confirmed)14 Active Fatty liver(Confirmed)15, 16 Active Limitation due to Active disability(Confirmed)17, 18 Gastro-esophageal reflux EGD Active 2011(Confirmed)19 Graves' disease Active opthalmopathy(Confirmed) History of peripheral artery 05/17/16 Active bypass(Confirmed)20 H/O compression fracture of sacrum Active 2014 anastranole(Confirmed)21 History of alcohol abuse(Confirmed)22, Active 23 H/O nausea(Confirmed) Active History of (NSTEMI) 2016 11/10/15 Active TIBURCIO(Confirmed)24 Hyperkalemia(Confirmed) 03/08/19 Active 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)25 Impaired Fasting Glucose(Confirmed)26 06/03/07 Active Infiltrating ductal carcinoma of Active breast left;lumpectomy 2012/xrt 2012(Confirmed)27, 28 FPC current use of opiate Active analgesic(Confirmed)29, 30, 31, 32, 33, 34 Low back pain(Confirmed) Active Failed back syndrome, Active lumbar(Confirmed) Lung nodules(Confirmed)35, 36, 37 Active Lymphedema of both lower Active extremities(Confirmed) Fx metatarsal rt second(Confirmed) 04/27/19 Active Normocytic normochromic Active anemia(Confirmed)38, 39 Osteopenia(Confirmed)40 Active PAD (peripheral artery Active disease)stenting 2015(Confirmed) Chronic prescription opiate Active use(Confirmed) Emphysema lung bfev1 40%(Confirmed)41, Active 42 Vitamin D Deficiency(Confirmed) Active 1per gastroenterology;haivqyt5Enhsnaxa to gastroenterology no-show for iwtcmvkszrv9ZWO5f kno1EIh1 four low umrde7aer0 40%6chronic cbmvubvbzj9UOPI:2 low xkvte4XNUF 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,[employer]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 azzayyu9qnqmeo repeat sdx; injections,fentanyl,morphine,oxycodone er10Dr Oh no surgery re neck,jdms79pmg Dr King,yesterday NO SURGERY, rx corsett,fvii09fsrqexnbb by two neurosurgeons,pain ieonycgj33kfqqk on39Ndcwno 24-hour urine fyucvhdh68OJLZ increased alpha2 dzaxohrej33gomjvh iron,ferrritin,cderloplasmin; neg HEP a,B,C17 updated Oswestry Disability Index: 48% ( severe disability ) on 04/15/16; updated [place] Back Pain Scale:44 on 04/15/16; updated [place]: 7 on 04/15/1618Initial Oswestry Disability Index: 48% ( severe disability ) on 11/24/14; initial [place] Back Pain Scale: 48 on 11/24/14; initial [place]: 5 on 11/24/1518egd [id number]. Bilateral common femoral artery endarterectomy. 3. Left common femoral artery patch angioplasty with PTFE. 4. Pvtz-fg-bnzps femoral-femoral bypass with 8-mm ringed PTFE qgxio83fqlnilp [id number] HI20jsqct59Tgysgkeitlysvx Summary Successful drug eluting stenting of the proximal LAD coronary artery with a 3.5X15 mm plus 3.0X8 mm Xience Alpine stents as described above. The second stent was needed to cover distal edge of th efirst stent in an overlapping fashion. 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 agreement iyr78lxdc 613pdv3 2 epworth 598vmysib31yl stable;recheck 12 iykgxk13mbikb lung nodules on neck CT recheck 6 lxqfcu89qdde normal,b12 low qtyhat70dsz terst xwc49wuvcjfi D deficiency;lrtktgfwgn26fye2 40%42Per pulmonary function testing April 2014 Diagnosis Diagnosis Type Effective Dates Health Clinical Infor mant Status Service Benign Essential Discharge 10/01/19 Hypertension Diagnosis Vital Signs Most recent to oldest [Reference Range]: 1 Height 149.9 cm (10/01/19 10:42 AM) Weight 69.7 kg (10/01/19 10:42 AM) Oxygen Saturation [94-100 %] 97 % (10/01/19 10:42 AM) Pulse Rate [55-90 bpm] 56 bpm (10/01/19 10:42 AM) Body Mass Index [18.5-24.99] 31.02 *>HHI* (10/01/19 10:42 AM) Blood Pressure [90-138/55-84 mm Hg] 130/70 mm Hg (10/01/19 10:42 AM) Respiratory Rate [16-30 br/min] 16 br/min (10/01/19 10:42 AM) Temperature [96.8-100.4 DegF] 98.2 DegF (10/01/19 10:42 AM) Mode of Delivery (Oxygen) Room air (10/01/19 10:42 AM) Blood pressure sites Arm, right (10/01/19 10:42 AM) Temperature Route Oral (10/01/19 10:42 AM) Weight Obtained Via Standing scale (10/01/19 10:42 AM) Social History Social History Type Response 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
--- OUTSIDE RECORDS SUMMARY | 2022-06-11 12:40 | XMS_ITS | Continuity of Care Document ---
:1945 Author Organization [facility] Address [address] [place] [id number]- Care Team Providers Name Role Phone Christina BAZAN, Chino Dao Primary Care Physician Encounter [facility] Date(s): 06/07/20 - 07/07/20 [facility] [address] [place] [id number]- Attending Physician: Saurabh Coronado Admitting Physician: AdmtrSaurabh Referring Physician: AdmtrSaurabh Allergies, Adverse Reactions, Alerts Substance Reaction Severity Status atorvastatin1 Active amLODIPine2 Active 0ooxb6dzffr Immunizations Given and Recorded Vaccine Date Status Refusal Reason influenza virus vaccine, inactivated 05/16/20 Given influenza [...] P atient Refuses 1Result Comment: [05/27/2017] [facility] [id number]/Late Reason: Wan to Standard Admin [id number] Note: #24Admin Note: historical data Medications Aspirin = 81 mg, By Mouth, Daily, 0 Refills, Maintenance Start Date: 12/26/11 Status: OrderedBevespi Aerosphere 9 mcg-4.8 mcg/inh inhalation aerosol 2 puffs, Inhalation, 2 times a day, 4 by 28 doses, # 5.9 Gm, 11 Refills, Maintenance, 04/25/20 11:19:00 EDT, [facility], 2 puffs Inhalation 2 times a day,Instr:4 by 28 doses, 149.9, cm, 02/14/20 11:11:00 EDT, Height, 68.9, kg, 07/12/19 14:56:... Start Date: 04/25/20 Status: Orderedcalcium (as carbonate) 500 mg oral tablet, chewable 1 tablet = 500 mg, Chew, Daily, # 150 tablet, 0 Refills, Maintenance, 09/21/19 14:07:00 EST, Chew Tablet Start Date: 09/21/19 Status: OrderedFlovent HFA 110 mcg/inh inhalation aerosol 2 puffs, Inhalation, 2 times a day, # 1 each, 5 Refills, Maintenance, 02/18/20 16:43:00 EDT, Aerosol, [facility], 149.9, cm, 02/14/20 11:11:00 EDT, Height, 68.9, kg, 07/12/19 14:56:00 EST, DryWeight Start Date: 02/18/20 Status: OrderedFLUoxetine 40 mg oral capsule 1 capsule = 40 mg, By Mouth, Daily, # 30 capsule, 5 Refills, Maintenance, 02/14/20 14:03:00 EDT, Capsule, [facility], 149.9, cm, 02/14/20 11:11:00 EDT, Height, 68.9, kg, 07/12/19 14:56:00 EST,Dry Weight Start Date: 02/14/20 Status: Orderedfurosemide 20 mg oral tablet 20 mg, 1, tablet, By Mouth, Daily, # 30 tablet, Refills 2, Tot. Refills 2, Maintenance, 07/03/20 12:15:00 EST, Route to Pharmacy Electronically, [facility] # [facility], 149.9, cm, 06/07/20 11:48:00 EST, Height, 68.9, kg, 07/12/19 14:56:00 EST, Dry Weight Start Date: 07/03/20 Status: Orderedhydrocortisone 2.5% topical cream 1 application, Topically, 3 times a day, # 30 Gm, 3 Refills, Maintenance, 08/10/18 11:58:13 EST, Cream, 1 application Topically 3 times a day Start Date: 08/10/18 Status: OrderedHYDROmorphone 4 mg oral tablet 1 tablet = 4 mg, By Mouth, Every 8 hours, # 84 tablet, 0 Refills, Maintenance, 06/13/20 11:31:00 EST, Tablet, [facility] # 50, partial fill upon request, 06/20/20, 149.9, cm, 06/07/20 11:48:00 EST,Height, 68.9, kg, 07/12/19 14:56:00 EST, Dry Weight Start Date: 06/13/20 Stop Date: 07/11/20 Status: Orderedlevothyroxine 125 mcg (0.125 mg) oral tablet 1 tablet = 125 mcg, By Mouth, Daily, # 30 tablet, 5 Refills, Maintenance, 04/17/20 13:45:00 EDT, Tablet, [facility] # [facility], 149.9, cm, 02/14/20 11:11:00 EDT, Height, 68.9, kg, 07/12/19 14:56:00 EST, Dry Weight Start Date: 04/17/20 Status: Orderedmetoprolol 25 mg oral tablet 25 mg, 1, tablet, By Mouth, 2 times a day, # 60 tablet, Refills 5, Tot. Refills 5, Maintenance, 02/14/20 14:03:00 EDT, Route to Pharmacy Electronically, [facility], 149.9, cm, 02/14/20 11:11:00 EDT, Height, 68.9, kg, 07/12/19 14:56:00 EST, . Start Date: 02/14/20 Status: Orderedpravastatin 20 mg oral tablet 20 mg, 1, tablet, By Mouth, Daily, # 30 tablet, Refills 5, Tot. Refills 5, Maintenance, 11/02/19 10:04:00 EDT, Route to Pharmacy Electronically, [facility] # [facility], 149.9, cm, 10/14/19 14:23:00 EDT, Height, 68.9, kg, 07/12/19 14:56:00 EST, Dry Weight Start Date: 11/02/19 Status: OrderedPriLOSEC OTC 20 mg oral delayed release tablet 1 tablet = 20 mg, By Mouth, Daily, # 90 tablet, 0 Refills, Maintenance, 05/09/20 9:35:00 EDT, CR Tablet, [facility], 149.9, cm, 02/14/20 11:11:00 EDT, Height, 68.9, kg, 07/12/19 14:56:00 EST, Dry Weight Start Date: 05/09/20 Status: OrderedVentolin HFA 108 mcg/inh inhalation aerosol with adapter 2 puffs, Inhalation, 4 times a day, PRN for wheezing, # 1 each, 5 Refills, Maintenance, 04/25/20 11:09:00 EDT, Aerosol, [facility] # [facility], 149.9, cm, 02/14/20 11:11:00 EDT, Height, 68.9, kg, 07/12/1914:56:00 EST, Dry Weight Start Date: 04/25/20 Status: OrderedVitamin B12 1000 mcg oral tablet [...] mg, By Mouth, Daily, # 30 tablet, 11 Refills, Maintenance, 11/08/19 8:36:00 EDT, Tablet, [facility], 149.9, cm, 10/14/19 14:23:00 EDT, Height, 68.9, kg, 07/12/19 14:56:00 EST, Dry Weight Start Date: 11/08/19 Status: Ordered Problem List Condition Effective Dates [...] Active Limitation due to Active disability(Confirmed)15, 16 Gastro-esophageal reflux EGD Active 2011(Confirmed)17 Graves' disease [...] Active Failed back syndrome, Active lumbar(Confirmed) Lung nodules(Confirmed)27, 28, 29 Active Lymphedema of both lower Active extremities(Confirmed) Depression, major(Confirmed)30, 31 Active Fx metatarsal rt second(Confirmed) 04/27/19 Active Normocytic normochromic Active anemia(Confirmed)32, 33 Osteopenia(Confirmed)34 Active PAD (peripheral artery Active disease)stenting 2015(Confirmed) Chronic prescription opiate Active use(Confirmed) Vitamin D Deficiency(Confirmed) Active 1per gastroenterology;hdbrmkf4Mabwmvab to gastroenterology no-show for bdojtvltron8zev3 40%4chronic fmmoqjujaf8HCBS:2 low cguaw6OKLF 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,[employer]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 ogwwybf1varmcf repeat sdx; injections,fentanyl,morphine,oxycodone er8Dr Oh no surgery re neck,xfor4rms Dr King,yesterday NO SURGERY, rx corsett,[place]10 evaluated by two neurosurgeons,pain bknlychg12tpccg cq72Entfyc 24-hour urine entwkiww24RYHE increased alpha2 hxyrdcubs91muiqyw iron,ferrritin,cderloplasmin; neg HEP a,B,N07vwbddfd Oswestry Disability Index: 48% ( severe disability ) on 04/15/16; updated [place] Back Pain Scale:44 on 04/15/16; updated [place]: 7 on 6Initial Oswestry Disability Index: 48% ( severe disability ) on 11/24/14; initial [place] Back Pain Scale: 48 on 11/24/14; initial [place]: 5 on 7egd . Bilateral common femoral artery endarterectomy. 3. Left common femoral artery patch angioplasty with PTFE. 4. 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 CURRENT THERAPY: Tamoxifen started in 11/17/14, prior anastrozole 11/2012- 09/2014, zoledronic acid, received 02/2015 and 08/2015.25apofo79Urbzaepepxdqmt Summary Successful drug eluting stenting of the proximal LAD coronary artery with a 3.5X15 mm plus 3.0X8 mm Xience Alpine stents as described above. The second stent was needed to cover distal edge of th efirst stent in an overlapping fashion. 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
--- OUTSIDE RECORDS SUMMARY | 2022-06-11 12:40 | XMS_ITS | Continuity of Care Document ---
:1945 Author Organization [facility] Address [address] [place] [id number]- Care Team Providers Name Role Phone Christina BAZAN, Chino Dao Primary Care Physician [facility]): 06[facility]20 - 07/20/20 [facility] [address] [place] [address]- Allergies, Adverse Reactions, Alerts Substance Reaction Severity Status atorvastatin1 Active amLODIPine2 Active 0mtay1cowro Immunizations Given and Recorded Vaccine Date Status [...] [facility] [id number]/Late Reason: Wan to Standard Admin [id number] Note: #24Admin Note: historical data Medications Aspirin = 81 mg, By Mouth, Daily, 0 Refills, Maintenance Start Date: 12/26/11 Status: OrderedBevespi Aerosphere 9 mcg-4.8 mcg/inh inhalation aerosol 2 puffs, Inhalation, 2 times a day, 4 by 28 doses, # 5.9 Gm, 11 Refills, Maintenance, 04/25/20 11:19:00 EDT, [facility] # 50, 2 puffs Inhalation 2 [...] 5 Refills, Maintenance, 02/18/20 16:43:00 EDT, Aerosol, [facility] # 50, 149.9, cm, 02/14/20 11:11:00 EDT, Height, 68.9, kg, 07/12/19 14:56:00 EST, DryWeight Start Date: 02/18/20 Status: OrderedFLUoxetine 40 mg oral capsule 1 capsule = 40 mg, By Mouth, Daily, # 30 capsule, 5 Refills, Maintenance, 02/14/20 14:03:00 EDT, Capsule, [facility] # 50, 149.9, cm, 02/14/20 11:11:00 EDT, Height, 68.9, kg, 07/12/19 14:56:00 EST,Dry Weight Start Date: 02/14/20 Status: Orderedfurosemide 20 mg oral tablet 20 mg, 1, tablet, By Mouth, Daily, # 30 tablet, Refills 2, Tot. Refills 2, Maintenance, 07/03/20 12:15:00 EST, Route to Pharmacy Electronically, [facility] # 50, 149.9, cm, 06/07/20 11:48:00 [...] hours, # 84 tablet, 0 Refills, Maintenance, 07/11/20 8:01:00 EST,Tablet, [facility] # 50, partial fill upon request, 07/18/20, 149.9, cm, 06/07/20 11:48:00 EST, Height, 68.9, kg, 07/12/19 14:56:00 EST, Dry Weight Start Date: 07/11/20 Stop Date: 08/08/20 Status: Orderedlevothyroxine 125 mcg (0.125 mg) oral tablet 1 tablet = 125 mcg, By Mouth, Daily, # 30 tablet, 5 Refills, Maintenance, 04/17/20 13:45:00 EDT, Tablet, [facility] # 50, 149.9, cm, 02/14/20 11:11:00 EDT, Height, 68.9, kg, 07/12/19 14:56:00 EST, Dry Weight Start Date: 04/17/20 Status: Orderedmetoprolol 25 mg oral tablet 25 mg, 1, tablet, By Mouth, 2 times a day, # 60 tablet, Refills 5, Tot. Refills 5, Maintenance, 02/14/20 14:03:00 EDT, Route to Pharmacy Electronically, [facility] # 50, 149.9, cm, 02/14/20 11:11:00 EDT, Height, 68.9, kg, 07/12/19 14:56:00 EST, . Start Date: 02/14/20 Status: Orderedpravastatin 20 mg oral tablet 20 mg, 1, tablet, By Mouth, Daily, # 30 tablet, Refills 5, Tot. Refills 5, Maintenance, 11/02/19 10:04:00 EDT, Route to Pharmacy Electronically, [facility] # 50, 149.9, cm, 10/14/19 14:23:00 EDT, Height, 68.9, kg, 07/12/19 14:56:00 EST, Dry Weight Start Date: 11/02/19 Status: OrderedPriLOSEC OTC 20 mg oral delayed release tablet 1 tablet = 20 mg, By Mouth, Daily, # 90 tablet, 0 Refills, Maintenance, 05/09/20 9:35:00 EDT, CR Tablet, [facility] # 50, 149.9, cm, 02/14/20 11:11:00 EDT, Height, 68.9, kg, 07/12/19 14:56:00 EST, Dry Weight Start Date: 05/09/20 Status: OrderedVentolin HFA 108 mcg/inh inhalation aerosol with adapter 2 puffs, Inhalation, 4 times a day, PRN for wheezing, # 1 each, 5 Refills, Maintenance, 04/25/20 11:09:00 EDT, Aerosol, [facility] # 50, 149.9, cm, 02/14/20 11:11:00 [...] Active use(Confirmed) Vitamin D Deficiency(Confirmed) Active 1per gastroenterology;bxvkxxs9Elswgksm to gastroenterology no-show for xnbigbrmxkr1igm1 40%4chronic nkxoulztmh3CFHI:2 low yqnqt3CSQO test done,[employer] dnbbzcm5rpanzf repeat sdx; injections,fentanyl,morphine,oxycodone er8Dr Oh no surgery re neck,ttuj4xzk Dr King,yesterday NO SURGERY, rx corsett,pool10 evaluated by two neurosurgeons,pain gogbpqat49rlzov wr95Axxcqe 24-hour urine peqvfifh54IVMM increased alpha2 wjemlzpml15gixxad iron,ferrritin,cderloplasmin; neg HEP a,B,B57zxlardk Oswestry Disability Index: 48% ( severe disability ) on 04/15/16; updated [place] Back Pain Scale:44 on 04/15/16; updated [place]: 7 on 04/15/1616Initial Oswestry Disability Index: 48% ( severe disability ) on 11/24/14; initial [place] Back Pain Scale: 48 on 11/24/14; initial [place]: 5 on 11/24/1516egd . Bilateral common femoral artery endarterectomy. 3. Left common femoral artery patch angioplasty with PTFE. 4. 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 CURRENT THERAPY: Tamoxifen started in 11/17/14, prior anastrozole 11/2012- 09/2014, zoledronic acid, received 02/2015 and 08/2015.83evqcb41Wlobyhbagpibou Summary Successful drug eluting stenting of the proximal LAD coronary artery with a 3.5X15 mm plus 3.0X8 mm Xience Alpine stents as described above. The second stent was needed to cover distal edge of th efirst stent in an overlapping fashion. 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
--- OUTSIDE RECORDS SUMMARY | 2022-06-11 12:40 | XMS_ITS | Continuity of Care Document ---
:1945 Author Organization [facility] Address [address] [place] [address]- Care Team Providers Name Role Phone Christina BAZAN, Ch[place] Dao Primary Care Physician [facility]): 04/25/22 - 05/25/22 [facility] [address] [place] [address]- Allergies, Adverse Reactions, Alerts Substance Reaction Severity Status spironolactone1 Active lisinopril2 Active atorvastatin3 Active thiazide diuretics4 Active amLODIPine5 Active 6eqnuy7defaohm mviexkfu2uoct6ijlqlnnevsru1ugftf Immunizations Given and Recorded Vaccine Date Status Refusal Reason influenza virus vaccine, inactivated 04/26/22 Given influenza virus vaccine, inactivated1 06/19/21 Given influenza virus vaccine, inactivated 05/16/20 Given influenza virus vaccine, inactivated 07/19/19 Given influenza virus vaccine, inactivated 04/14/18 Recorded influenza virus vaccine, inactivated2 05/27/17 Given influenza virus vaccine, inactivated3 05/17/16 Given influenza virus vaccine, inactivated 07/26/15 Given influenza virus vaccine, inactivated 04/19/14 Given influenza virus vaccine, inactivated 07/15/13 Given influenza virus vaccine, inactivated 04/16/12 Given influenza virus vaccine, inactivated 04/17/11 Given tetanus-diphtheria toxoids (Td)4 11/14/21 Given tetanus-diphtheria toxoids (Td) 12/01/06 Given SARS-CoV-2 (COVID-19) mRNA BNT-162b2 vac 07/05/21 Recorde d SARS-CoV-2 (COVID-19) mRNA BNT-162b2 vac 09/27/20 Recorde d SARS-CoV-2 (COVID-19) mRNA BNT-162b2 vac 09/19/20 Given SARS-CoV-2 (COVID-19) mRNA BNT-162b2 vac 09/19/20 Recorde d SARS-CoV-2 (COVID-19) mRNA BNT-162b2 vac 08/29/20 Recorde d pneumococcal 23-valent vaccine5 06/19/21 Given pneumococcal 13-valent vaccine 08/30/14 Recorded Hepatitis A Adult Vaccine6 06/15/12 Given Hepatitis A Adult Vaccine 12/26/11 Given FluLaval (oldterm) 04/08/12 Given FluLaval (oldterm) 05/31/10 Given tetanus/diphtheria/pertussis, acel(Tdap) 03/18/12 Given Hepatitis B Vaccine (old term) 02/03/12 Given Hepatitis B Vaccine (old term) 02/03/12 Given hepatitis B adult vaccine 12/26/11 Given Fluzone (oldterm) 08/04/09 Given Influenza Virus Vaccine (oldterm) 06/03/08 Given Influenza Inactive (IM) (oldterm) 06/03/07 Given Pneumococcal Vaccine (oldterm)7 06/03/98 Given Not Given Vaccine Date Status Refusal Reason pneumococcal 23-valent vaccine 08/13/14 Not Given P atient Refuses 1Result Comment: [facility]: [id number] Comment: [05/27/2017] [facility] [id number] 3Early/Late Reason: Wan to Standard Admin [id number] Comment: [facility]: [id number] Comment: [facility]: [id number] Note: #27Admin Note: historical data Medications aspirin 81 mg oral delayed release tablet 81 mg, 1, tablet, By Mouth, Daily, Maintenance, 12/21/20 16:02:00 EDT, ; Start Date: 12/21/20 Status: Orderedbudesonide/formoterol/glycopyrrolate 160 mcg-4.8 mcg-9 mcg/inh inhalation aerosol 2 puffs, Inhalation, Every 12 hours, rinse mouth and throat after use, # 1 each, 11 Refills, Maintenance, 10/16/21 15:12:00 EDT, Aerosol, [facility] # 50, Partial fill upon patient request if the prescription is for a schedule II opioid drug., 2 p... Start Date: 10/16/21 Status: Orderedcalcium (as carbonate) 500 mg oral tablet, chewable 1 tablet = 500 mg, Chew, Daily, 0 Refills, Maintenance, 09/21/19 14:07:00 EST, Chew Tablet Start Date: 09/21/19 Status: Orderedcarvedilol 25 mg oral tablet See Instructions, TAKE 1 TABLET BY MOUTH TWICE A DAY., # 180 tablet, Refills 1, Maintenance, 05/12/22 18:19:00 EDT, Instructions Replace Required Details, Route to Pharmacy Electronically, [facility] # 50, 149, cm, 04/25/22 10:28:00 EDT, Height, 7... Start Date: 05/12/22 Status: Ordereddocusate sodium 100 mg oral capsule 100 mg, 1, capsule, By Mouth, Daily, PRN, Maintenance, as needed for constipation, 12/21/20 16:05:00EDT, ; Start Date: 12/21/20 Status: Orderedezetimibe 10 mg oral tablet See Instructions, TAKE ONE TABLET BY MOUTH EVERY DAY, # 30 tablet, 5 Refills, 11/12/21 9:33:00 EDT, [facility] # 50, 149, cm, 10/18/21 12:13:00 EDT, Height, 68.9, kg, 12/21/20 8:52:00 EDT, Dry Weight Start Date: 11/12/21 Status: OrderedFLUoxetine 40 mg oral capsule 1 capsule, By Mouth, Daily, # 30 capsule, 5 Refills, [facility] # 50, 149, cm, 02/06/22 9:42:00 EDT, Height, 68.5, kg, 11/19/21 15:42:00 EDT, Dry Weight Start Date: 02/11/22 Status: Orderedfurosemide 20 mg oral tablet 20 mg, 1, tablet, By Mouth, Daily, # 90 tablet, Refills 0, Tot. Refills 0, Maintenance, 02/21/22 12:19:00 EDT, Route to Pharmacy Electronically, [facility] # 50, 149, cm, 02/21/22 11:30:00 EDT, Height, 74.4, kg, 02/12/22 14:46:00 EDT, Dry Weight Start Date: 02/21/22 Status: Orderedhydrocortisone 2.5% topical cream 1 application, Topically, 3 times a day, # 30 Gm, 1 Refills, Maintenance, 01/09/21 12:15:00 EDT, Cream, [facility] # 50, 1 application Topically 3 times a day, 149.9, cm, 01/09/21 12:01:00 EDT, Height, 68.9, kg, 12/21/20 8:52:00 EDT, Dry Weight Start Date: 01/09/21 Status: OrderedHYDROmorphone 4 mg oral tablet 1 tablet = 4 mg, By Mouth, Every 8 hours, # 84 tablet, 0 Refills, Maintenance, 05/20/22 11:57:00 EDT, Tablet, [facility] # 50, partial fill upon request, 149, cm, 04/25/22 10:28:00 EDT, Height, 74.4, kg, 02/12/22 14:46:00 EDT, Dry Weight Start Date: 05/20/22 Stop Date: 06/17/22 Status: OrderedImodium A-D 2 mg, By Mouth, Refills 0, Maintenance, 01/09/21 15:24:00 EDT, Partial fill upon patient request if the prescription is for a schedule II opioid drug. Start Date: 01/09/21 Status: Orderedlevothyroxine 125 mcg (0.125 mg) oral tablet See Instructions, TAKE ONE TABLET BY MOUTH EVERY DAY, # 30 tablet, 5 Refills, Maintenance, 04/08/22 12:28:00 EDT, [facility] # 50, 149, cm, 03/21/22 8:09:00 EDT, Height, 74.4, kg, 02/12/22 14:46:00EDT, Dry Weight Start Date: 04/08/22 Status: Orderedpantoprazole 20 mg oral delayed release tablet See Instructions, TAKE 1 TABLET BY MOUTH DAILY., # 90 tablet, 1 Refills, Maintenance, 05/12/22 18:19:00 EDT, 149, cm, 04/25/22 10:28:00 EDT, Height, 74.4, kg, 02/12/22 14:46:00 EDT, Dry Weight Start Date: 05/12/22 Status: Orderedrosuvastatin 10 mg oral capsule 1 capsule = 10 mg, By Mouth, Daily, # 30 capsule, 11 Refills, Maintenance, 08/15/21 13:23:00 EST, Capsule, [facility], Partial fill upon patient request if the prescription is for a schedule II opioid drug., 149, cm, 08/15/21 11:10:00 EST, He... Start Date: 08/15/21 Status: OrderedTylenol 325 mg oral tablet 650 mg, 2, tablet, By Mouth, Every 4 hours, PRN, # 24 tablet, Refills 0, Tot. Refills 0, Maintenance, Pain , Mild, 12/27/20 9:18:00 EDT, Route to Pharmacy Electronically, [facility], Partial fill upon patient request if the prescription... Start Date: 12/27/20 Status: OrderedVentolin HFA 108 mcg/inh inhalation aerosol with adapter See Instructions, INHALE 2 PUFFS FOUR TIMES A DAY NEEDED FOR WHEEZING, # 18 Gm, 5 Refills, Maintenance, 05/24/22 11:12:00 EDT, [facility] # 50, 149, cm, 05/21/22 9:17:00 EDT, Height, 74.4, kg, 02/12/22 14:46:00 EDT, Dry Weight Start Date: 05/24/22 Status: OrderedVitamin B12 1000 mcg oral tablet See Instructions, 1 tablet By Mouth Daily, # 60 Doses, 11 Refills, Maintenance, 02/28/16 20:56:48 EDT Start Date: 02/28/16 Status: OrderedVitamin D3 1000 intl units oral tablet 1 tablet = 1,000 International_Units, By Mouth, Daily, 0 Refills, Maintenance, 09/21/19 14:06:00 EST, Tablet Start Date: 09/21/19 Status: Ordered Problem List Condition Confirmation Course Effective Dates Status Health I nformant Status Abnormal gait Confirmed Active Memory loss Confirmed Active Benign Essential Confirmed Active Hypertension Cecal bascule1, 2 Confirmed 05/06/14 Active Cervical Spondylosis Confirmed Active without Myelopathy MRI 2009 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%3, 4 Chronic Pain Confirmed Active Syndrome5, 6, 7, 8, 9, 10 Closed displaced Confirmed 04/17/15 Active fracture of third metatarsal bone of right foot Deficiency of vitamin Confirmed Active B1211 Coronary artery Confirmed Active disease Torn rotator cuff rt Confirmed 02/12/19 Active orthoi Diverticulosis, Confirmed 07/12/19 Active sigmoid;colonoscopy Lower extremity edema Confirmed Active Essential familial Confirmed Active hyperlipidemia Ex-smoker, / ppd Confirmed Active X23 years, quit 1997 Excessive weight Confirmed Active gain12 Fatty liver13, 14 Confirmed Active Limitation due to Confirmed Active qxxieosgtd21, 16 Opiate use Confirmed Active Gastro-esophageal Confirmed Active reflux EGD [id number] Graves' disease Confirmed Active H/O fracture of wrist Confirmed 12/03/21 Active rt History of peripheral Confirmed 05/17/16 Active artery dpuxcs60 H/O compression Confirmed Active fracture of sacrum 2014 ynnwhetrehs55 History of alcohol Confirmed Active abuse20, 21 H/O nausea Confirmed Active History of ischemic Confirmed 12/21/20 Active colitis History of breast Confirmed Active cancer Left, IDC, pT1c pN0, ER/VA positive, Her-2/angelito negative, [id number], 23 History of (NSTEMI) Confirmed 11/10/15 Active 2015 DES24 S/P drug eluting Confirmed Active coronary stent placement Hyperkalemia Confirmed 03/08/19 Active Hyponatremia Confirmed Active Hypothyroidism Confirmed Active following radioiodine woqnpkq40 Impaired Fasting Confirmed 06/03/07 Active Qyknewt68 Anemia, iron Confirmed Active deficiency neg colo 2018.neg egd 2020 per gi (greef) no addtl workuyp Low back pain Confirmed Active Failed back syndrome, Confirmed Active lumbar Lung nodules remote Confirmed Active qgkzbu21, 28, 29 Lymphedema of both Confirmed Active lower extremities Depression, major30, Confirmed Active 31 Fx metatarsal rt Confirmed 04/27/19 Active second Nocturia Confirmed 10/18/21 Active Normocytic Confirmed Active normochromic esygzh31, 33 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 Xenfqdtaxv57 Confirmed Active PAD (peripheral Confirmed Active artery disease)stenting 2015 Chronic prescription Confirmed Active opiate use Multiple falls REFER Confirmed 10/18/21 Active PT Sep 2021 Frequent PVCs brefer Confirmed 10/18/21 Active holter Vitamin D Deficiency Confirmed Active 1per gastroenterology;tponncm4Unwriyjm to gastroenterology no-show for magbwkhcwpi0duw3 40%4chronic pwonptswor0AMAC:2 low ipxwe2GSQW test done,[employer] fyqetxa8wrqeqe repeat sdx; injections,fentanyl,morphine,oxycodone er8Dr Oh no surgery re neck,obis8ckf Dr King,yesterday NO SURGERY, rx corsett,pool10 evaluated by two neurosurgeons,pain krjsxqou89ahzwy xd80Xgcfie 24-hour urine sgzzvwqs09IIDX increased alpha2 azxpeecsf00iaowtb iron,ferrritin,cderloplasmin; neg HEP a,B,J64zrnvrhh Oswestry Disability Index: 48% ( severe disability ) on 04/15/16; updated [place] Back Pain Scale:44 on 04/15/16; updated [place]: 7 on 04/15/1616Initial [place]estry Disability Index: 48% ( severe disability ) on 11/24/14; initial [place] Back Pain Scale: 48 on 11/24/14; initial [place]: 5 on 11/24/1516egd . Bilateral common femoral artery endarterectomy. 3. Left common femoral artery patch angioplasty with PTFE. 4. 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 CURRENT THERAPY: Tamoxifen started in 11/17/14, prior anastrozole 11/2012- 09/2014, zoledronic acid, received 02/2015 and 08/2015.40wugwb31Oklrcublbeiwwh Summary Successful drug eluting stenting of the proximal LAD coronary artery with a 3.5X15 mm plus 3.0X8 mm Xience Alpine stents as described above. The second stent was needed to cover distal edge of th efirst stent in an overlapping fashion. 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
--- OUTSIDE RECORDS SUMMARY | 2022-06-11 12:40 | XMS_ITS | Continuity of Care Document ---
:1945 Author Organization [facility] Address [address] [place] [id number]- Care Team Providers Name Role Phone Chino Vasquez MD Primary Care Physician Encounter [facility] Date(s): 05/16/20 - 05/23/20 [facility] [address] [place] [address]- [facility] Attending Physician: Cheryl Mcginnis NP Admitting Physician: Cheryl Mcginnis NP Referring Physician: Chino Vasquez MD Allergies, Adverse Reactions, Alerts Substance Reaction Severity Status atorvastatin1 Active amLODIPine2 Active 0bffl7lblmr Immunizations Given and Recorded Vaccine Date Status [...] Given P atient Refuses 1Result Comment: [05/27/2017] [facility] [id number]/Late Reason: Wan to Standard Admin [id number] Note: #24Admin Note: historical data Medications Aspirin = 81 mg, By Mouth, Daily, 0 Refills, Maintenance Start Date: 12/26/11 Status: OrderedBevespi Aerosphere 9 mcg-4.8 mcg/inh inhalation aerosol 2 puffs, Inhalation, 2 times a day, 4 by 28 doses, # 5.9 Gm, 11 Refills, Maintenance, 04/25/20 11:19:00 EDT, [facility], 2 puffs Inhalation [...] 5 Refills, Maintenance, 02/18/20 16:43:00 EDT, Aerosol, [facility], 149.9, cm, 02/14/20 11:11:00 EDT, Height, 68.9, kg, 07/12/19 14:56:00 EST, DryWeight Start Date: 02/18/20 Status: OrderedFLUoxetine 40 mg oral capsule 1 capsule = 40 mg, By Mouth, Daily, # 30 capsule, 5 Refills, Maintenance, 02/14/20 14:03:00 EDT, Capsule, [facility] # [facility], 149.9, cm, 02/14/20 11:11:00 EDT, Height, 68.9, kg, 07/12/19 14:56:00 EST,Dry Weight Start Date: 02/14/20 Status: Orderedfurosemide 20 mg oral tablet 20 mg, 1, tablet, By Mouth, Daily, # 30 tablet, Refills 2, Tot. Refills 2, Maintenance, 04/10/20 16:58:00 EDT, Route to Pharmacy Electronically, [facility] # [facility], 149.9, cm, 02/14/20 11:11:00 EDT, Height, 68.9, kg, 07/12/19 14:56:00 EST, Dry Weight Start Date: 04/10/20 Status: Orderedhydrocortisone 2.5% topical cream 1 application, Topically, 3 times a day, # 30 Gm, 3 Refills, Maintenance, 08/10/18 11:58:13 EST, Cream, 1 application Topically 3 times a day Start Date: 08/10/18 Status: OrderedHYDROmorphone 4 mg oral tablet 1 tablet = 4 mg, By Mouth, Every 8 hours, # 84 tablet, 0 Refills, Maintenance, 05/16/20 20:15:00 EDT, Tablet, [facility] # [facility], partial fill upon request, 05/23/20, 149.9, cm, 05/16/20 14:42:00 EDT,Height, 68.9, kg, 07/12/19 14:56:00 EST, Dry Weight Start Date: 05/16/20 Stop Date: 06/13/20 Status: Orderedlevothyroxine 125 mcg (0.125 mg) oral tablet 1 tablet = 125 mcg, By Mouth, Daily, # 30 tablet, 5 Refills, Maintenance, 04/17/20 13:45:00 EDT, Tablet, [facility] # 50, 149.9, cm, 02/14/20 11:11:00 EDT, Height, 68.9, kg, 07/12/19 14:56:00 EST, Dry Weight Start Date: 04/17/20 Status: Orderedmetoprolol 25 mg oral tablet 25 mg, 1, tablet, By Mouth, 2 times a day, # 60 tablet, Refills 5, Tot. Refills 5, Maintenance, 02/14/20 14:03:00 EDT, Route to Pharmacy Electronically, [facility] # [facility], 149.9, cm, 02/14/20 11:11:00 EDT, Height, 68.9, kg, 07/12/19 14:56:00 ESTDr... Start Date: 02/14/20 Status: Orderedpravastatin 20 mg oral tablet 20 mg, 1, tablet, By Mouth, Daily, # 30 tablet, Refills 5, Tot. Refills 5, Maintenance, 11/02/19 10:04:00 EDT, Route to Pharmacy Electronically, [facility] # [facility], 149.9, cm, 10/14/19 14:23:00 EDT, Height, 68.9, kg, 07/12/19 14:56:00 EST, Dry Weight Start Date: 11/02/19 Status: OrderedPriLOSEC OTC 20 mg oral delayed release tablet 1 tablet = 20 mg, By Mouth, Daily, # 90 tablet, 0 Refills, Maintenance, 05/09/20 9:35:00 EDT, CR Tablet, [facility] # [facility], 149.9, cm, 02/14/20 11:11:00 EDT, Height, 68.9, kg, 07/12/19 14:56:00 EST, Dry Weight Start Date: 05/09/20 Status: OrderedVentolin HFA 108 mcg/inh inhalation aerosol with adapter 2 puffs, Inhalation, 4 times a day, PRN for wheezing, # 1 each, 5 Refills, Maintenance, 04/25/20 11:09:00 EDT, Aerosol, [facility] # [facility], 149.9, cm, 02/14/20 [...] Active use(Confirmed) Vitamin D Deficiency(Confirmed) Active 1per gastroenterology;krayysd4Fkiyfirl to gastroenterology no-show for yyhzzveztpo7qun2 40%4chronic coayfsliqi5NMZH:2 low ydahs3GLKG test done,[employer] ASSOCIATE bmkcwpw9pjpruy repeat sdx; injections,fentanyl,morphine,oxycodone er8Dr Oh no surgery re neck,stvl2ihs Dr King,yesterday NO SURGERY, rx corsett,pool10 evaluated by two neurosurgeons,pain xrehfkjr73oryqy qo23Jryzzn 24-hour urine uxlidmlh76CCGV increased alpha2 hvbuiuano82jbittf iron,ferrritin,cderloplasmin; neg HEP a,B,F52sbqzhch Oswestry Disability Index: 48% ( severe disability ) on 04/15/16; updated [place] Back Pain Scale:44 on 04/15/16; updated [place]: 7 on 04/15/1616Initial Oswestry Disability Index: 48% ( severe disability ) on 11/24/14; initial [place] Back Pain Scale: 48 on 11/24/14; initial [place]: 5 on 11/24/1516egd . Bilateral common femoral artery endarterectomy. 3. Left common femoral artery patch angioplasty with PTFE. 4. 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 CURRENT THERAPY: Tamoxifen started in 11/17/14, prior anastrozole 11/2012- 09/2014, zoledronic acid, received 02/2015 and 08/2015.58gogem82Npqcxdzhavcdcc Summary Successful drug eluting stenting of the proximal LAD coronary artery with a 3.5X15 mm plus 3.0X8 mm Xience Alpine stents as described above. The second stent was needed to cover distal edge of th efirst stent in an overlapping fashion. The stents were post-dilated using a 3.5 mm non-compliant balloon.25 now hyperthyroid,exopthalmous;Dr MurphyEcnzdq17wjburkp pre diabetes increased risk lcpasdld90kngswn93qi stable;recheck 12 kbdhnn57uajkz lung nodules on neck CT recheck 6 zwoxdd71ORU3p icb60PHa4 four low ldpnm58jtvy normal,b12 low uzlrhs51 fit terst syp31rfqtirx D deficiency;correcting Procedures Procedure Date Related Diagnosis Body Site Status 6-minute walk test BI 0.79 left 0.76 05/22/20 Completed Vital Signs Most recent to oldest [Reference Range]: 1 Height 149.9 cm (05/16/20 9:50 AM) Weight 71.21 kg (05/16/20 9:50 AM) Oxygen Saturation [94-100 %] 96 % (05/16/20 9:50 AM) Pulse Rate [55-90 bpm] 52 bpm *L* (05/16/20 9:50 AM) Body Mass Index [18.5-24.99] 31.69 *>HHI* (05/16/20 9:50 AM) Blood Pressure [90-138/55-84 mm Hg] 124/70 mm Hg (05/16/20 9:50 AM) Blood pressure sites Arm, right (05/16/20 9:50 AM) Weight Obtained Via Patient/family stated (05/16/20 9:50 AM) Social History Social History Type Response 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
--- OUTSIDE RECORDS SUMMARY | 2022-06-11 12:40 | XMS_ITS | Continuity of Care Document ---
:1945 Author Organization [facility] Address [address] [place] [address]- Care Team Providers Name Role Phone Christina BAZAN, Chino Dao Primary Care Physician Encounter [facility] Date(s): 07/25/20 - 08/24/20 [facility] [address], [place] [address] Attending Physician: AdmSaurabh carroll Admitting Physician: AdmtrSaurabh Referring Physician: Admtr, Ar8 Allergies, Adverse Reactions, Alerts Substance Reaction Severity Status atorvastatin1 Active amLODIPine2 Active 9xiyu1pasap Immunizations Given and Recorded Vaccine Date Status [...] Given P atient Refuses 1Result Comment: [05/27/2017] [facility] [id number]/Late Reason: Wan to Standard Admin [id number] Note: #24Admin Note: historical data Medications Aspirin = 81 mg, By Mouth, Daily, 0 Refills, Maintenance Start Date: 12/26/11 Status: OrderedBevespi Aerosphere 9 mcg-4.8 mcg/inh inhalation aerosol 2 puffs, Inhalation, 2 times a day, 4 by 28 doses, # 5.9 Gm, 11 Refills, Maintenance, 04/25/20 11:19:00 EDT, [facility], 2 puffs Inhalation 2 [...] 5 Refills, Maintenance, 08/22/20 18:56:00 EST, Aerosol, [facility], 149.9, cm, 06/07/20 11:48:00 EST, Height, 68.9, kg, 07/12/19 14:56:00 EST, DryWeight Start Date: 08/22/20 Status: OrderedFLUoxetine 40 mg oral capsule 1 capsule = 40 mg, By Mouth, Daily, # 30 capsule, 5 Refills, Maintenance, 08/13/20 10:39:00 EST, Capsule, [facility] # [facility], 149.9, cm, 06/07/20 11:48:00 EST, Height, 68.9, kg, 07/12/19 14:56:00 EST,Dry Weight Start Date: 08/13/20 Status: Orderedfurosemide 20 mg oral tablet 20 mg, 1, tablet, By Mouth, Daily, # 30 tablet, Refills 2, Tot. Refills 2, Maintenance, 07/03/20 12:15:00 EST, Route to Pharmacy Electronically, [facility] # [facility], 149.9, cm, 06/07/20 11:48:00 [...] hours, # 84 tablet, 0 Refills, Maintenance, 08/08/20 11:11:00 EST, Tablet, [facility] # 50, partial fill upon request, 08/15/20, 149.9, cm, 06/07/20 11:48:00 EST,Height, 68.9, kg, 07/12/19 14:56:00 EST, Dry Weight Start Date: 08/08/20 Stop Date: 09/05/20 Status: Orderedlevothyroxine 125 mcg (0.125 mg) oral tablet 1 tablet = 125 mcg, By Mouth, Daily, # 30 tablet, 5 Refills, Maintenance, 04/17/20 13:45:00 EDT, Tablet, [facility] # 50, 149.9, cm, 02/14/20 11:11:00 EDT, Height, 68.9, kg, 07/12/19 14:56:00 EST, Dry Weight Start Date: 04/17/20 Status: Orderedmetoprolol 25 mg oral tablet 25 mg, 1, tablet, By Mouth, 2 times a day, # 60 tablet, Refills 2, Tot. Refills 2, Maintenance, 08/13/20 10:39:00 EST, Route to Pharmacy Electronically, [facility] # [facility], 149.9, cm, 06/07/20 11:48:00 EST, Height, 68.9, kg, 07/12/19 14:56:00 EST, . Start Date: 08/13/20 Status: Orderedpravastatin 20 mg oral tablet 20 mg, 1, tablet, By Mouth, Daily, # 30 tablet, Refills 5, Tot. Refills 5, Maintenance, 11/02/19 10:04:00 EDT, Route to Pharmacy Electronically, [facility] # 50, 149.9, cm, 10/14/19 14:23:00 EDT, Height, 68.9, kg, 07/12/19 14:56:00 EST, Dry Weight Start Date: 11/02/19 Status: OrderedPriLOSEC OTC 20 mg oral delayed release tablet 1 tablet = 20 mg, By Mouth, Daily, # 90 tablet, 0 Refills, Maintenance, 08/07/20 11:06:00 EST, CR Tablet, [facility] # [facility], 149.9, cm, 06/07/20 11:48:00 EST, Height, 68.9, kg, 07/12/19 14:56:00 EST,Dry Weight Start Date: 08/07/20 Status: OrderedVentolin HFA 108 mcg/inh inhalation aerosol with adapter 2 puffs, Inhalation, 4 times a day, PRN for wheezing, # 1 each, 5 Refills, Maintenance, 04/25/20 11:09:00 EDT, Aerosol, [facility] # [facility], 149.9, cm, 02/14/20 11:11:00 [...] Active use(Confirmed) Vitamin D Deficiency(Confirmed) Active 1per gastroenterology;wnrulgs3Qindipvm to gastroenterology no-show for zsxtooolgwl2opf8 40%4chronic tldrfemqio9JTQF:2 low mdupu9AGKH test done,[employer]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 cwsgzsq8aqrjaf repeat sdx; injections,fentanyl,morphine,oxycodone er8Dr Oh no surgery re neck,yqij9bld Dr King,yesterday NO SURGERY, rx corsett,pool10 evaluated by two neurosurgeons,pain nswigsoi43egqbr kj58Tjqshg 24-hour urine iljoqydu36VBSC increased alpha2 ggtffrjpb86rmrxzb iron,ferrritin,cderloplasmin; neg HEP a,B,I69xjuwwih Oswestry Disability Index: 48% ( severe disability ) on 04/15/16; updated [place] Back Pain Scale:44 on 04/15/16; updated [place]: 7 on 04/15/1616Initial Oswestry Disability Index: 48% ( severe disability ) on 11/24/14; initial [place] Back Pain Scale: 48 on 11/24/14; initial [place]: 5 on 11/24/1516egd . Bilateral common femoral artery endarterectomy. 3. Left common femoral artery patch angioplasty with PTFE. 4. 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 CURRENT THERAPY: Tamoxifen started in 11/17/14, prior anastrozole 11/2012- 09/2014, zoledronic acid, received 02/2015 and 08/2015.43vkbwe45Wxqjrllpbtamcx Summary Successful drug eluting stenting of the proximal LAD coronary artery with a 3.5X15 mm plus 3.0X8 mm Xience Alpine stents as described above. The second stent was needed to cover distal edge of th efirst stent in an overlapping fashion. 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
--- OUTSIDE RECORDS SUMMARY | 2022-06-11 12:41 | XMS_ITS | Continuity of Care Document ---
:1945 Author Organization [facility] Address [address] [place] [address]- Care Team Providers Name Role Phone Christina BAZAN, Chino Dao Primary Care Physician Encounter [facility] Date(s): 07/19/19 - 07/26/19 [facility] [address] [place] [address]- [facility] Encounter Diagnosis Failed back syndrome, lumbar (Discharge Diagnosis) - 07/18/19 Chronic prescription opiate use (Discharge Diagnosis) - 07/18/19 Chronic depression (Discharge Diagnosis) - 07/18/19 Coronary artery disease (Discharge Diagnosis) - 07/18/19 Essential familial hyperlipidemia (Discharge Diagnosis) - 07/18/19 Benign Essential Hypertension (Discharge Diagnosis) - 07/18/19 Fatty liver (Discharge Diagnosis) - 07/18/19 Hypothyroidism following radioiodine therapy (Discharge Diagnosis) - 07/18/19 Impaired Fasting Glucose (Discharge Diagnosis) - 07/18/19 PAD (peripheral artery disease)stenting 2015 (Discharge Diagnosis) - 07/18/19 Vitamin D Deficiency (Discharge Diagnosis) - 07/18/19 Infiltrating ductal carcinoma of breast left;lumpectomy 2012/xrt 2012 (Discharge Diagnosis) - 07/18/19 Osteopenia (Discharge Diagnosis) - 07/18/19 History of (NSTEMI) 2016 TIBURCIO (Discharge Diagnosis) - 07/18/19 History of alcohol abuse (Discharge Diagnosis) - 07/18/19 History of peripheral artery bypass (Discharge Diagnosis) - 07/18/19 Hyperkalemia (Discharge Diagnosis) - 07/18/19 Graves' disease opthalmopathy (Discharge Diagnosis) - 07/18/19 Gastro-esophageal reflux EGD 2011 (Discharge Diagnosis) - 07/18/19 Attending Physician: Chino Vasquez MD Allergies, Adverse [...] P atient Refuses 1Result Comment: [05/27/2017] [facility][NOTE 3] [id number]/Late Reason: Wan to Standard Admin [id number] Note: #24Admin Note: historical data Medications amLODIPine 10 mg oral tablet 10 mg, 1, tablet, By Mouth, Daily, # 30 tablet, Refills 11, Tot. Refills 11, Maintenance, 08/10/18 11:54:38 EST, Route to Pharmacy Electronically, [id number], [facility] Start Date: 08/10/18 Status: Orderedamoxicillin-clavulanate 875 mg-125 mg oral tablet 1 tablet, By Mouth, Every 12 hours, for 7 days, with food, # 14 tablet, 0 Refills, Acute 08/02/19 10:30:00 EST, 07/26/19 10:30:00 EST, [facility], 149.9, cm, 07/19/19 9:45:00 EST, Height, 68.9, kg, 07/12/19 14:56:00 EST, Dry Weight Start Date: 07/26/19 Stop Date: 08/02/19 Status: OrderedAspirin = 81 mg, By Mouth, Daily, 0 Refills, Maintenance Start Date: 12/26/11 Status: OrderedBevespi Aerosphere 9 mcg-4.8 mcg/inh inhalation aerosol 2 puffs, Inhalation, 2 times a day, 4 by 28 doses lot [id number] 05-14, # 1 Doses, 11 Refills, Maintenance, 02/12/19 10:52:38 EDT, 2 puffs Inhalation 2 times a day,Instr:4 by 28 doses; lot [id number] 05-14 Start Date: 02/12/19 Status: OrderedFlovent HFA 110 mcg/inh inhalation aerosol 2 puffs, Inhalation, 2 times a day, # 1 each, 11 Refills, Maintenance, 02/12/19 10:52:12 EDT, Aerosol Start Date: 02/12/19 Status: OrderedFLUoxetine 40 mg oral capsule 1 capsule = 40 mg, By Mouth, Daily, # 30 capsule, 5 Refills, Maintenance, 02/17/19 10:43:57 EDT, Capsule Start Date: 02/17/19 Status: Orderedhydrocortisone 2.5% topical cream 1 application, Topically, 3 times a day, # 30 Gm, 3 Refills, Maintenance, 08/10/18 11:58:13 EST, Cream, 1 application Topically 3 times a day Start Date: 08/10/18 Status: OrderedHYDROmorphone 4 mg oral tablet 1 tablet = 4 mg, By Mouth, Every 8 hours, # 84 tablet, 0 Refills, Maintenance, 07/13/19 9:03:00 EST,Tablet, [facility], partial fill upon request, 07/20/19, 149.9, cm, 07/12/19 14:56:47 EST, Height, 68.9, kg, 07/12/19 14:56:47 EST, Dry Weight Start Date: 07/13/19 Stop Date: 08/10/19 Status: Orderedlevothyroxine 125 mcg (0.125 mg) oral tablet 1 tablet = 125 mcg, By Mouth, Daily, # 30 tablet, 2 Refills, Maintenance, 07/20/19 14:38:00 EST, Tablet, [facility] # [facility], 149.9, cm, 07/19/19 9:45:00 EST, Height, 68.9, kg, 07/12/19 14:56:00 EST, Dry Weight Start Date: 07/20/19 Status: Orderedmetoprolol 25 mg oral tablet 25 mg, 1, tablet, By Mouth, 2 times a day, # 60 tablet, Refills 1, Tot. Refills 1, Maintenance, 06/14/19 13:25:57 EST, Route to Pharmacy Electronically, [id number], [facility] Start Date: 06/14/19 Status: OrderedPlavix 75 mg oral tablet 75 mg, 1, tablet, By Mouth, Daily in AM, # 30 tablet, Refills 5, Tot. Refills 5, Maintenance, 02/17/19 10:47:40 EDT, Route to Pharmacy Electronically, [id number], [facility] Start Date: 02/17/19 Status: Orderedpravastatin 10 mg oral tablet 2 tablet = 20 mg, By Mouth, Daily, # 30 tablet, 5 Refills, Maintenance, 05/11/19 9:20:40 EDT, Tablet, [facility] Start Date: 05/11/19 Status: OrderedpredniSONE 20 mg oral tablet 1 tablet = 20 mg, By Mouth, 2 times a day, for 5 days, # 10 tablet, 0 Refills, Acute 07/28/19 11:16:00 EST, 07/23/19 11:16:00 EST, [facility] # [facility], 149.9, cm, 07/19/19 9:45:00 EST, Height, 68.9, kg, 07/12/19 14:56:00 EST, Dry Weight Start Date: 07/23/19 Stop Date: 07/28/19 Status: OrderedraNITIdine 150 mg oral tablet 1 [...] 02/28/16 20:56:48 EDT Start Date: 02/28/16 Status: Ordered Problem List Condition Effective Dates [...] H/O nausea(Confirmed) Active History of (NSTEMI) 2016 4/15/16 Active TIBURCIO(Confirmed)24 Hyperkalemia(Confirmed) 03/08/19 Active 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)25 Impaired Fasting Glucose(Confirmed)26 06/03/07 Active Infiltrating ductal carcinoma of Active breast left;lumpectomy 2012/xrt 2012(Confirmed)27, 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 Active analgesic(Confirmed)29, 30, [...] Active 42 Vitamin D Deficiency(Confirmed) Active 1per gastroenterology;jvcvdug2Nvunfsiq to gastroenterology no-show for nqiidqpvypc6FYO7w vwh6FOq2 four low ujgia2ptw1 40%6chronic rzyhmqoqov6CSWJ:2 low iwaag7NDHI test 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,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 ruomuwj1zjlrwj repeat sdx; injections,fentanyl,morphine,oxycodone er10Dr Oh no surgery re neck,whzs62wjr Dr King,yesterday NO SURGERY, rx corsett,risv81ooccbusat by two neurosurgeons,pain fdqyfyfz35gyzdz dp92Rdzuxd 24-hour urine xngsatlo34OZVA increased alpha2 ycmorttwj64ktidbs iron,ferrritin,cderloplasmin; neg HEP a,B,C17 updated Oswestry Disability Index: 48% ( severe disability ) on 04/15/16; updated [place] Back Pain Scale:44 on 04/15/16; updated [place]: 7 on 04/15/1618Initial Oswestry Disability Index: 48% ( severe disability ) on 11/24/14; initial [place] Back Pain Scale: 48 on 11/24/14; initial [place]: 5 on 11/24/1518egd [id number]. Bilateral common femoral artery endarterectomy. 3. Left common femoral artery patch angioplasty with PTFE. 4. Woma-ew-trykj femoral-femoral bypass with 8-mm ringed PTFE grbmo06nwuhczk 20140829in SU63cmkhd46Bcdactixqwawxt Summary Successful drug eluting stenting of the proximal LAD coronary artery with a 3.5X15 mm plus 3.0X8 mm Xience Alpine stents as described above. The second stent was needed to cover distal edge of th efirst stent in an overlapping fashion. 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 kep63jgkp 400tuw6 2 epworth 757oslsgq38xs stable;recheck 12 bgldji96pddvc lung nodules on neck CT recheck 6 pbnnif68jevs normal,b12 low tfbsrm52xie terst ngi65hvjnuzs D deficiency;thhydwkqau83vor9 40%42Per pulmonary function testing April 2014 Diagnosis Diagnosis Type Effective Dates Health Clinical Infor mant Status Service Failed back Discharge 07/18/19 syndrome, lumbar Diagnosis Chronic prescription Discharge 07/18/19 opiate use Diagnosis Chronic depression Discharge 07/18/19 Diagnosis Coronary artery Discharge 07/18/19 disease Diagnosis Essential familial Discharge 07/18/19 hyperlipidemia Diagnosis Benign Essential Discharge 07/18/19 Hypertension Diagnosis Fatty liver Discharge 07/18/19 Diagnosis Hypothyroidism Discharge 07/18/19 following Diagnosis radioiodine therapy Impaired Fasting Discharge 07/18/19 Glucose Diagnosis PAD (peripheral Discharge 07/18/19 artery Diagnosis disease)stenting 2015 Vitamin D Deficiency Discharge 07/18/19 Diagnosis Infiltrating ductal Discharge 07/18/19 carcinoma of breast Diagnosis left;lumpectomy 2012/xrt 2012 Osteopenia Discharge 07/18/19 Diagnosis History of (NSTEMI) Discharge 07/18/192015 TIBURCIO Diagnosis History of alcohol Discharge 07/18/19 abuse Diagnosis History of Discharge 07/18/19 peripheral artery Diagnosis bypass Hyperkalemia Discharge 07/18/19 Diagnosis Graves' disease Discharge 07/18/19 opthalmopathy Diagnosis Gastro-esophageal Discharge 07/18/19 reflux EGD 2011 Diagnosis Vital Signs Most recent to oldest [Reference Range]: 1 2 Height 149.9 cm 149.9 cm (07/19/19 9:45 AM) (07/19/19 9:22 AM) Weight 67.8 kg (07/19/19 9:22 AM) Oxygen Saturation [94-100 %] 97 % (07/19/19 9:22 AM) Pulse Rate [55-90 bpm] 66 bpm (07/19/19 9:22 AM) Body Mass Index [18.5-24.99] 30.17 *>HHI* (07/19/19 9:22 AM) Blood Pressure [90-138/55-84 mm Hg] 130/70 mm Hg 152/ 70 mm Hg (07/19/19 9:45 AM) *H* (07/19/19 9:22 AM) Blood pressure sites Arm, left Arm, right (07/19/19 9:45 AM) (07/19/19 9:22 AM) Social History Social History Type Response 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
--- OUTSIDE RECORDS SUMMARY | 2022-06-11 12:41 | XMS_ITS | Continuity of Care Document ---
:1945 Author Organization [facility] Address [address] [place] [address]- Care Team Providers Name Role Phone Christina BAZAN, [place] Dao Primary Care Physician [facility]21 - 12/02/21 [facility] [address] [place] [address]- Allergies, Adverse Reactions, Alerts Substance Reaction Severity Status spironolactone1 Active lisinopril2 Active atorvastatin3 Active thiazide diuretics4 Active amLODIPine5 Active 4jvlpd0mseajjz kcbpcjhb2hrlq0qkmoqzcmghpe5wacls Immunizations Given and Recorded Vaccine Date Status Refusal Reason tetanus-diphtheria toxoids (Td)1 11/14/21 Given tetanus-diphtheria toxoids (Td) 12/01/06 Given pneumococcal 23-valent vaccine2 06/19/21 Given influenza virus vaccine, inactivated3 06/19/21 Given influenza virus vaccine, inactivated 05/16/20 Given influenza virus vaccine, inactivated 07/19/19 Given influenza virus vaccine, inactivated 04/14/18 Recorded influenza virus vaccine, inactivated4 05/27/17 Given influenza virus vaccine, inactivated5 05/17/16 Given influenza virus vaccine, inactivated 07/26/15 Given influenza virus vaccine, inactivated 04/19/14 Given influenza virus vaccine, inactivated 07/15/13 Given influenza virus vaccine, inactivated 04/16/12 Given influenza virus vaccine, inactivated 04/17/11 Given SARS-CoV-2 (COVID-19) mRNA BNT-162b2 vac 09/27/20 Recorde d SARS-CoV-2 (COVID-19) mRNA BNT-162b2 vac 09/19/20 Given SARS-CoV-2 (COVID-19) mRNA BNT-162b2 vac 09/19/20 Recorde d SARS-CoV-2 (COVID-19) mRNA BNT-162b2 vac 08/29/20 Recorde d pneumococcal 13-valent vaccine 08/30/14 Recorded Hepatitis A [...] Not Given P atient Refuses 1Result Comment: [facility]: [id number] Comment: [facility]: [id number] Comment: [facility]: [phone] Comment: [05/27/2017] [facility] [id number] Early/Late Reason: Wan to Standard Admin [id number] Note: #27Admin Note: historical data Medications aspirin [...] 09/21/19 Status: Orderedcarvedilol 25 mg oral tablet 1, tablet, By Mouth, 2 times a day, # 180 tablet, Refills 0, Route to Pharmacy Electronically, [facility] # 50, 149, cm, 10/16/21 14:48:00 EDT, Height, 68.9, kg, 12/21/20 8:52:00 EDT, Dry Weight Start Date: 10/17/21 Status: OrderedcloNIDine 0.1 mg oral tablet See Instructions, TAKE ONE TABLET BY MOUTH TWICE A DAY, # 60 tablet, Refills 5, Instructions ReplaceRequired Details, Route to Pharmacy Electronically, [facility] # 50, 149, cm, 10/18/21 12:13:00 EDT, Height, 68.9, kg, 12/21/20 8:52:00 EDT, Dry W... Start Date: 11/04/21 Status: Ordereddocusate sodium 100 mg oral capsule 100 mg, 1, capsule, By Mouth, Daily, PRN, Maintenance, as needed for constipation, 12/21/20 16:05:00EDT, ; Start Date: 12/21/20 Status: Orderedezetimibe 10 mg oral tablet See Instructions, TAKE ONE TABLET BY MOUTH EVERY DAY, # 30 tablet, 5 Refills, 11/12/21 9:33:00 EDT, [facility] # 50, 149, cm, 10/18/21 12:13:00 EDT, Height, 68.9, kg, 12/21/20 8:52:00 EDT, Dry Weight Start Date: 11/12/21 Status: OrderedFLUoxetine 40 mg oral capsule See Instructions, TAKE 1 CAPSULE BY MOUTH DAILY., # 30 capsule, 5 Refills, 08/15/21 13:23:00 EST, [facility] # 50, 149, cm, 08/15/21 11:10:00 EST, Height, 68.9, kg, 12/21/20 8:52:00 EDT, Dry Weight Start Date: 08/15/21 Status: Orderedhydrocortisone 2.5% topical cream 1 application, Topically, 3 times a day, # 30 Gm, 1 Refills, Maintenance, 01/09/21 12:15:00 EDT, Cream, [facility] # 50, 1 application Topically 3 times a day, 149.9, cm, 01/09/21 12:01:00 EDT, Height, 68.9, kg, 12/21/20 8:52:00 EDT, Dry Weight Start Date: 01/09/21 Status: OrderedHYDROmorphone 4 mg oral tablet 1 tablet = 4 mg, By Mouth, Every 8 hours, # 84 tablet, 0 Refills, Maintenance, 11/06/21 9:15:00 EDT,Tablet, [facility] # 50, partial fill upon request, 11/11/21, 149, cm, 10/18/21 12:13:00 EDT, Height, 68.9, kg, 12/21/20 8:52:00 EDT, Dry Weight Start Date: 11/06/21 Stop Date: 12/04/21 Status: OrderedImodium A-D 2 mg, By Mouth, Refills 0, Maintenance, 01/09/21 15:24:00 EDT, Partial fill upon patient request if the prescription is for a schedule II opioid drug. Start Date: 01/09/21 Status: Orderedlevothyroxine 125 mcg (0.125 mg) oral tablet See Instructions, TAKE ONE TABLET BY MOUTH EVERY DAY, # 30 tablet, 5 Refills, 10/11/21 14:05:00 EDT,[facility] # 50, 149, cm, 08/15/21 11:10:00 EST, Height, 68.9, kg, 12/21/20 8:52:00 EDT, Dry Weight Start Date: 10/11/21 Status: Orderedpantoprazole 20 mg oral delayed release tablet 1 tablet, By Mouth, Daily, # 90 tablet, 0 Refills, 149, cm, 10/16/21 14:48:00 EDT, Height, 68.9, kg,12/21/20 8:52:00 EDT, Dry Weight Start Date: 10/17/21 Status: Orderedrosuvastatin 10 mg oral capsule 1 capsule = 10 mg, By Mouth, Daily, # 30 capsule, 11 Refills, Maintenance, 08/15/21 13:23:00 EST, Capsule, [facility] # 50, Partial fill [...] 12/27/20 9:18:00 EDT, Route to Pharmacy Electronically, [facility], Partial fill upon patient request if the prescription... 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)3, Active 4 Chronic Pain Syndrome(Confirmed)5, 6, Active 7, 8, 9, 10 Closed displaced fracture of third 04/17/15 Active metatarsal bone of right foot(Confirmed) Deficiency of vitamin B12(Confirmed)11 Active Coronary artery disease(Confirmed) Active Torn rotator cuff rt orthoi(Confirmed) 02/12/19 Active Diverticulosis, 07/12/19 Active sigmoid;colonoscopy(Confirmed) Essential familial Active hyperlipidemia(Confirmed) Ex-smoker, 07/29 ppd X23 years, quit Active 1997(Confirmed) Excessive weight gain(Confirmed)12 Active Fatty liver(Confirmed)13, 14 Active Limitation due to Active disability(Confirmed)15, 16 Opiate use(Confirmed) Active Gastro-esophageal reflux EGD Active 2011(Confirmed)17 Graves' disease(Confirmed) Active History of peripheral artery 05/17/16 Active bypass(Confirmed)18 H/O compression fracture of sacrum Active 2014 anastranole(Confirmed)19 History of alcohol abuse(Confirmed)20, Active 21 H/O nausea(Confirmed) Active History of ischemic colitis(Confirmed) 12/21/20 Active History of breast cancer Left, IDC, Active pT1c pN0, ER/HI positive, Her-2/angelito negative, 2012(Confirmed)22, 23 History of (NSTEMI) 201511/10/15 Active TIBURCIO(Confirmed)24 S/P drug eluting coronary stent Active placement(Confirmed) Hyperkalemia(Confirmed) 03/08/19 Active Hyponatremia(Confirmed) Active 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)25 Impaired Fasting Glucose(Confirmed)26 06/03/07 Active Anemia, iron deficiency neg colo Active 2018.neg egd 2020 per gi (greef) no addtl workuyp(Confirmed) Low back pain(Confirmed) Active Failed back syndrome, Active lumbar(Confirmed) Lung nodules remote Active stable(Confirmed)27, 28, 29 Lymphedema of both lower Active extremities(Confirmed) Depression, major(Confirmed)30, 31 Active Fx metatarsal rt second(Confirmed) 04/27/19 Active Nocturia(Confirmed) 10/18/21 Active Normocytic normochromic Active anemia(Confirmed)32, 33 Obese class I(Confirmed) Active 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) Active Osteopenia(Confirmed)34 Active PAD (peripheral artery Active disease)stenting 2015(Confirmed) Chronic prescription opiate Active use(Confirmed) Multiple falls REFER PT Mar 10/18/21 Active 2021(Confirmed) Frequent PVCs brefer holter(Confirmed) 10/18/21 Active Vitamin D Deficiency(Confirmed) Active 1per gastroenterology;jzsppjy3Rsgekakg to gastroenterology no-show for gxnaduihqmp7zmc4 40%4chronic jshqxmuoff0TJYG:2 low nzloi8HPTV 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,[employer]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 lxgxyed5furohh repeat sdx; injections,fentanyl,morphine,oxycodone er8Dr Oh no surgery re neck,bpik2lxy Dr King,yesterday NO SURGERY, rx corsett,pool10 evaluated by two neurosurgeons,pain ziipnndb41wfgqi oe74Ppjmvc 24-hour urine dojbueqz32VVFQ increased alpha2 cfuphqgxn78yqgdhw iron,ferrritin,cderloplasmin; neg HEP a,B,I35aosovpe Oswestry Disability Index: 48% ( severe disability ) on 04/15/16; updated [place] Back Pain Scale:44 on 04/15/16; updated [place]: 7 on 04/15/1616Initial Oswestry Disability Index: 48% ( severe disability ) on 11/24/14; initial [place] Back Pain Scale: 48 on 11/24/14; initial [place]: 5 on 11/24/1516egd . Bilateral common femoral artery endarterectomy. 3. Left common femoral artery patch angioplasty with PTFE. 4. 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 CURRENT THERAPY: Tamoxifen started in 11/17/14, prior anastrozole 11/2012- 09/2014, zoledronic acid, received 02/2015 and 08/2015.71wnnxm43Indrzptayjzsis Summary Successful drug eluting stenting of the proximal LAD coronary artery with a 3.5X15 mm plus 3.0X8 mm Xience Alpine stents as described above. The second stent was needed to cover distal edge of th efirst stent in an overlapping fashion. 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
--- OUTSIDE RECORDS SUMMARY | 2022-06-11 12:41 | XMS_ITS | Continuity of Care Document ---
:1945 Author Organization [facility] Address [address] [place] [address]- Care Team Providers Name Role Phone Christina BAZAN, [place] Dao Primary Care Physician [facility] 11[facility]20 [facility] [address] [place] [address]- Allergies, Adverse Reactions, Alerts Substance Reaction Severity Status spironolactone1 Active lisinopril2 Active atorvastatin3 Active amLODIPine4 Active 1uwhwm0yjtvuud xdovznez7twsh5hhslf Immunizations Given and Recorded Vaccine Date Status Refusal Reason SARS-CoV-2 (COVID-19) mRNA BNT-162b2 vac 09/27/20 Recorde d SARS-CoV-2 (COVID-19) mRNA BNT-162b2 vac 09/19/20 Recorde [...] Given P atient Refuses 1Result Comment: [05/27/2017] [facility] [id number]/Late Reason: Wan to Standard Admin [id number] Note: #24Admin Note: historical data Medications Aspirin = 81 mg, By Mouth, Daily, 0 Refills, Maintenance Start Date: 12/26/11 Status: OrderedBevespi Aerosphere 9 mcg-4.8 mcg/inh inhalation aerosol 2 puffs, Inhalation, 2 times a day, 4 by 28 doses, # 5.9 Gm, 11 Refills, Maintenance, 04/25/20 11:19:00 EDT, [facility] # [facility], 2 puffs Inhalation [...] 10/26/20 14:56:00 EDT, Route to Pharmacy Electronically, [facility] # 50, Partial fill upon patient request if the prescription is for a schedule II opioid feliberto... Start Date: 10/26/20 Status: OrderedFlovent HFA 110 mcg/inh inhalation aerosol 2 puffs, Inhalation, 2 times a day, # 1 each, 5 Refills, Maintenance, 08/22/20 18:56:00 EST, Aerosol, [facility] # 50, 149.9, cm, 06/07/20 11:48:00 EST, Height, 68.9, kg, 07/12/19 14:56:00 EST, DryWeight Start Date: 08/22/20 Status: OrderedFLUoxetine 40 mg oral capsule 1 capsule = 40 mg, By Mouth, Daily, # 30 capsule, 5 Refills, Maintenance, 08/13/20 10:39:00 EST, Capsule, [facility] # 50, 149.9, cm, 06/07/20 [...] tablet, 0 Refills, Maintenance, 10/31/20 8:03:00 EDT,Tablet, [facility] # 50, partial fill upon request, 11/07/20, 149.9, cm, 10/26/20 14:49:00 EDT, Height, 68.9, kg, 07/12/19 14:56:00 EST, Dry Weight Start Date: 10/31/20 Stop Date: 11/28/20 Status: Orderedlevothyroxine 125 mcg (0.125 mg) oral tablet 1 tablet = 125 mcg, By Mouth, Daily, # 30 tablet, 5 Refills, Maintenance, 10/10/20 7:25:00 EDT, Tablet, [facility] # 50, 149.9, cm, 08/28/20 14:48:00 EST, Height, 68.9, kg, 07/12/19 14:56:00 EST, Dry Weight Start Date: 10/10/20 Status: Orderedmetoprolol 25 mg oral tablet 25 mg, 1, tablet, By Mouth, 2 times a day, # 60 tablet, Refills 2, Tot. Refills 2, Maintenance, 08/13/20 10:39:00 EST, Route to Pharmacy Electronically, [facility] # 50, 149.9, cm, 06/07/20 11:48:00 EST, Height, 68.9, kg, 07/12/19 14:56:00 EST, DrClementina.. Start Date: 08/13/20 Status: OrderedPriLOSEC OTC 20 mg oral delayed release tablet 1 tablet = 20 mg, By Mouth, Daily, # 90 tablet, 0 Refills, Maintenance, 08/07/20 11:06:00 EST, CR Tablet, [facility] # 50, 149.9, cm, 06/07/20 11:48:00 EST, Height, 68.9, kg, 07/12/19 14:56:00 EST,Dry Weight Start Date: 08/07/20 Status: Orderedrosuvastatin 10 mg oral capsule 1 capsule = 10 mg, By Mouth, Daily, # 30 capsule, 11 Refills, Maintenance, 08/29/20 15:01:00 EST, Capsule, [facility] # 50, Partial fill upon patient request if the prescription is for a schedule II opioid drug., 149.9, cm, 08/28/20 14:48:00 EST,... 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 ytiuuqc1bijkqp repeat sdx; injections,fentanyl,morphine,oxycodone er8Dr Oh no surgery re neck,otzi5pqv Dr King,yesterday NO SURGERY, rx corsett,pool10 evaluated by two neurosurgeons,pain yxhjoolz68hctmw vg93Tllcea 24-hour urine rhxqvgbc63ABFQ increased alpha2 cyxdpwwct68etvgmc iron,ferrritin,cderloplasmin; neg HEP a,B,C61ykqakrf Oswestry Disability Index: 48% ( severe disability ) on 04/15/16; updated [place] Back Pain Scale:44 on 04/15/16; updated [place]: 7 on 04/15/1616Initial Oswestry Disability Index: 48% ( severe disability ) on 11/24/14; initial [place] Back Pain Scale: 48 on 11/24/14; initial [place]: 5 on 11/24/1516egd . Bilateral common femoral artery endarterectomy. 3. Left common femoral artery patch angioplasty with PTFE. 4. 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 CURRENT THERAPY: Tamoxifen started in 11/17/14, prior anastrozole 11/2012- 09/2014, zoledronic acid, received 02/2015 and 08/2015.58kusgs85Wgxayxbgxqlzyn Summary Successful drug eluting stenting of the proximal LAD coronary artery with a 3.5X15 mm plus 3.0X8 mm Xience Alpine stents as described above. The second stent was needed to cover distal edge of th efirst stent in an overlapping fashion. 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
--- OUTSIDE RECORDS SUMMARY | 2022-06-11 12:41 | XMS_ITS | Continuity of Care Document ---
:1945 Author Organization [facility] Address [address] [place] [address]- Care Team Providers Name Role Phone Christina BAZAN, Ch[place] Dao Primary Care Physician [facility]21 - 05/25/21 [facility] [address] [place] [address]- Attending Physician: Admtr, Ar8 Allergies, Adverse Reactions, Alerts Substance Reaction Severity Status spironolactone1 Active lisinopril2 Active amLODIPine3 Active atorvastatin4 Active 5sigca3pkqcbdz wyjelzjp2jiuig7xzbz Immunizations Given and Recorded Vaccine Date Status [...] Given P atient Refuses 1Result Comment: [05/27/2017] [facility] [id number]/Late Reason: Wan to Standard Admin [id number] Note: #24Admin Note: historical data Medications aspirin 81 mg oral delayed release tablet 81 mg, 1, tablet, By Mouth, Daily, Maintenance, 12/21/20 16:02:00 EDT, ; Start Date: 12/21/20 Status: OrderedBevespi Aerosphere 9 mcg-4.8 mcg/inh inhalation aerosol 2 puffs, Inhalation, 2 times a day, # 10.7 Gm, 11 Refills, [facility] # [facility], 30, INHALE 2 PUFFS TWO TIMES A DAY, 149, cm, 03/29/21 11:00:00 EDT, Height, 68.9, kg, 12/21/20 8:52:00 EDT, Dry Weight Start Date: 05/14/21 Status: Orderedcalcium (as carbonate) 500 mg oral tablet, chewable 1 tablet = 500 mg, Chew, Daily, 0 Refills, Maintenance, 09/21/19 14:07:00 EST, Chew Tablet Start Date: 09/21/19 Status: Orderedcarvedilol 25 mg oral tablet 25 mg, 1, tablet, By Mouth, 2 times a day, # 180 tablet, Refills 0, Tot. Refills 0, Maintenance, 04/25/21 14:11:00 EDT, Route to Pharmacy Electronically, [facility] # [facility], 149, cm, 03/29/21 11:00:00EDT, Height, 68.9, kg, 12/21/20 8:52:00 EDT, Dry... Start Date: 04/25/21 Status: Orderedchlorthalidone 25 mg oral tablet See Instructions, TAKE ONE TABLET BY MOUTH EVERY DAY, # 30 tablet, Refills 5, Tot. Refills 5, Maintenance, 02/20/21 1:48:00 EDT, Instructions Replace Required Details, Route to Pharmacy Electronically,[facility] # [facility], 149, cm, 02/09/21 10:03:00 E... Start Date: 02/20/21 Status: OrderedcloNIDine 0.1 mg oral tablet 0.1 mg, 1, tablet, By Mouth, 2 times a day, # 60 tablet, Refills 6, Tot. Refills 6, Maintenance, 04/13/21 5:37:00 EDT, Route to Pharmacy Electronically, [facility] # [facility], Partial fill upon patient request if the prescription is for a schedule II op... Start Date: 04/13/21 Status: Orderedclopidogrel 75 mg oral tablet 1, tablet, By Mouth, Daily, # 90 tablet, Refills 0, Route to Pharmacy Electronically, [facility], 149, cm, 03/29/21 11:00:00 EDT, Height, 68.9, kg, 12/21/20 8:52:00 EDT, Dry Weight Start Date: 04/23/21 Status: Ordereddocusate sodium 100 mg oral capsule 100 mg, 1, capsule, By Mouth, Daily, PRN, Maintenance, as needed for constipation, 12/21/20 16:05:00EDT, ; Start Date: 12/21/20 Status: Ordereddoxycycline hyclate 100 mg oral capsule 2 capsule = 200 mg, By Mouth, Once, # 2 capsule, 0 Refills, Soft Stop, 03/27/21 10:17:00 EDT, [facility] # 50, Partial fill upon patient request if the prescription is for a schedule II opioid drug., 149, cm, 03/27/21 10:16:00 EDT, Height, 68.9, k... Start Date: 03/27/21 Status: Orderedezetimibe 10 mg oral tablet See Instructions, TAKE ONE TABLET BY MOUTH EVERY DAY, # 30 tablet, 5 Refills, [facility], 149, cm, 03/29/21 11:00:00 EDT, Height, 68.9, kg, 12/21/20 8:52:00 EDT, Dry Weight Start Date: 05/09/21 Status: OrderedFlovent HFA 110 mcg/inh inhalation aerosol See Instructions, INHALE 2 PUFFS TWO TIMES A DAY, # 12 Gm, 5 Refills, Maintenance, [facility], 149, cm, 02/09/21 10:03:00 EDT, Height, 68.9, kg, 12/21/20 8:52:00 EDT, Dry Weight Start Date: 02/09/21 Status: OrderedFLUoxetine 40 mg oral capsule See Instructions, TAKE 1 CAPSULE BY MOUTH DAILY., # 30 capsule, 5 Refills, Maintenance, [facility] # 50, 149, cm, 02/09/21 10:03:00 EDT, Height, 68.9, kg, 12/21/20 8:52:00 EDT, Dry Weight Start Date: 02/12/21 Status: Orderedhydrocortisone 2.5% topical cream 1 application, Topically, 3 times a day, # 30 Gm, 1 Refills, Maintenance, 01/09/21 12:15:00 EDT, Cream, [facility] # 50, 1 application Topically 3 times a day, 149.9, cm, 01/09/21 12:01:00 EDT, Height, 68.9, kg, 12/21/20 8:52:00 EDT, Dry Weight Start Date: 01/09/21 Status: OrderedHYDROmorphone 4 mg oral tablet 1 tablet = 4 mg, By Mouth, Every 8 hours, # 84 tablet, 0 Refills, Maintenance, 05/22/21 9:27:00 EDT,Tablet, [facility], partial fill upon request, 05/29/21, 149, cm, 03/29/21 11:00:00 EDT, Height, 68.9, kg, 12/21/20 8:52:00 EDT, Dry Weight Start Date: 05/22/21 Stop Date: 06/19/21 Status: OrderedImodium A-D 2 mg, By Mouth, Refills 0, Maintenance, 01/09/21 15:24:00 EDT, Partial fill upon patient request if the prescription is for a schedule II opioid drug. Start Date: 01/09/21 Status: Orderedlevothyroxine 125 mcg (0.125 mg) oral tablet See Instructions, TAKE ONE TABLET BY MOUTH EVERY DAY, # 30 tablet, 5 Refills, [facility], 149, cm, 03/29/21 11:00:00 EDT, Height, 68.9, kg, 12/21/20 8:52:00 EDT, Dry Weight Start Date: 04/16/21 Status: OrderedoxyCODONE 5 mg oral tablet 5 mg, 1, tablet, By Mouth, Every 6 hours, PRN, # 5 tablet, Refills 0, Tot. Refills 0, Maintenance, Pain , Severe, 12/27/20 9:18:00 EDT, Route to Pharmacy Electronically, [facility], Partial fill upon patient request if the prescription i... Start Date: 12/27/20 Status: Orderedpantoprazole 20 mg oral delayed release tablet 1 tablet, By Mouth, Daily, # 90 tablet, 0 Refills, 149, cm, 03/29/21 11:00:00 EDT, Height, 68.9, kg,12/21/20 8:52:00 EDT, Dry Weight Start Date: 04/23/21 Status: Orderedrosuvastatin 10 mg oral capsule 1 capsule = 10 mg, By Mouth, Daily, # 30 capsule, 11 Refills, Maintenance, 08/29/20 15:01:00 EST, Capsule, [facility] # 50, Partial fill upon patient request if the prescription is for a schedule II opioid drug., 149.9, cm, 08/28/20 14:48:00 EST,... Start Date: 08/29/20 Status: OrderedTylenol 325 mg oral tablet 650 mg, 2, tablet, By Mouth, Every 4 hours, PRN, # 24 tablet, Refills 0, Tot. Refills 0, Maintenance, Pain , Mild, 12/27/20 9:18:00 EDT, Route to Pharmacy Electronically, [facility], Partial fill upon patient request if the prescription... Start Date: 12/27/20 Status: OrderedVentolin HFA 108 mcg/inh inhalation aerosol with adapter See Instructions, INHALE 2 PUFFS FOUR TIMES A DAY NEEDED FOR WHEEZING, # 18 Gm, 2 Refills, Maintenance, [facility], 149, cm, 02/09/21 10:03:00 EDT, Height, 68.9, kg, 12/21/20 8:52:00 EDT, Dry Weight Start Date: 03/09/21 Status: OrderedVitamin B12 1000 mcg oral tablet [...] breast cancer Left, IDC, Active pT1c pN0, ER/OH positive, Her-2/angelito negative, 2012(Confirmed)22, 23 History of [...] Active use(Confirmed) Vitamin D Deficiency(Confirmed) Active 1per gastroenterology;cjbhnaq4Omxhinth to gastroenterology no-show for nljghtlaedg5zef4 40%4chronic qcgpbyyfnb2NDTI:2 low jphcj4SOBH test 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,MASS 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 ccugjdy2qpykym repeat sdx; injections,fentanyl,morphine,oxycodone er8Dr Oh no surgery re neck,zoka8pyn Dr King,yesterday NO SURGERY, rx corsett,pool10 evaluated by two neurosurgeons,pain iecbhdnj19xthaw mu80Cundfz 24-hour urine bzfqkoiu69TBYL increased alpha2 hwtvmaagz57twexld iron,ferrritin,cderloplasmin; neg HEP a,B,M55faxrcwv Oswestry Disability Index: 48% ( severe disability ) on 04/15/16; updated [place] Back Pain Scale:44 on 04/15/16; updated [place]: 7 on 6Initial Oswestry Disability Index: 48% ( severe disability ) on 11/24/14; initial [place] Back Pain Scale: 48 on 11/24/14; initial [place]: 5 on 7egd . Bilateral common femoral artery endarterectomy. 3. Left common femoral artery patch angioplasty with PTFE. 4. 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 CURRENT THERAPY: Tamoxifen started in 11/17/14, prior anastrozole 11/2012- 09/2014, zoledronic acid, received 02/2015 and 08/2015.47ebsyd31Zlzolsbkwzolkv Summary Successful drug eluting stenting of the proximal LAD coronary artery with a 3.5X15 mm plus 3.0X8 mm Xience Alpine stents as described above. The second stent was needed to cover distal edge of th efirst stent in an overlapping fashion. The stents were post-dilated using a 3.5 mm non-compliant balloon.25 now hyperthyroid,exopthalmous;Dr MurphyQduspf05agtpitn pre diabetes increased risk kxuxmgph79kvsrks33is stable;recheck 12 hvabox03vjsix lung nodules on neck CT recheck 6 pzijxi41BWO6k rwh97WQo0 four low pcxbh14izdn normal,b12 low ojdobz15 fit terst ede80ceexhsi D deficiency;correcting Procedures Procedure Date Related Diagnosis Body Site Status Radiologic examination, spine, 01/07/17 Completed lumbosacral; 2 or 3 views1 Radiologic examination, ankle; 2 03/26/12 Completed views2 Duplex scan of lower limb veins3 03/24/12 Completed Dual-energy X-ray absorptiometry 12/18/11 Completed (DXA), bone density study, 1 or more sites; axial skeleton (eg, hips, pelvis, spine)4 Radiologic examination, hips, 09/29/09 Completed bilateral, minimum of 2 views of each hip, including anteroposterior view of pelvis5 Radiologic examination, knee; both 09/29/09 Completed knees, standing, anteroposterior6 Spirometry7 06/05/09 Completed Magnetic resonance (eg, proton) 06/09/07 Completed imaging, spinal canal and contents, lumbar; with contrast material(s)8 Dual-energy X-ray absorptiometry 07/17/06 Completed (DXA), bone density study, 1 or more sites; axial skeleton (eg, hips, pelvis, spine)9 Colonoscopy, flexible, proximal to 10/07/05 Completed splenic flexure; diagnostic, with or without collection of specimen(s) by brushing or washing, with or without colon decompression (separate procedure)10 Radiologic examination, chest, 2 07/08/05 Completed views, frontal and lateral;11 Electrocardiogram, routine ECG with at 12/04/04 Completed least 12 leads; with interpretation and phewjm40 11. Multilevel degenerative changes progressive from 03/28/2012. 2. Spondylolysis L5 with spondylolisthesis L5-S1. 3. Mild scoliosis. 4. 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
--- OUTSIDE RECORDS SUMMARY | 2022-06-11 12:41 | XMS_ITS | Continuity of Care Document ---
:1945 Author Organization [facility] Address [address] [place] [address]- Care Team Providers Name Role Phone Christina BAZAN, [place] Dao Primary Care Physician [facility] 09[facility]28[facility]20 - 10/28/20 [facility] [address] [place] [address]- Allergies, Adverse Reactions, Alerts Substance Reaction Severity Status spironolactone1 Active lisinopril2 Active atorvastatin3 Active amLODIPine4 Active 8lqfnd3tfopmrf mxmhovlq1sfzt5tcyxb Immunizations Given and Recorded Vaccine Date Status [...] Comment: [05/27/2017] [facility] [id number]/Late Reason: Wan to Standard Admin [id number] Note: #24Admin Note: historical data Medications Aspirin [...] # 10.7 Gm, 11 Refills, Maintenance, [facility], 30, INHALE 2 PUFFS BY [...] 10/26/20 14:56:00 EDT, Route to Pharmacy Electronically, [facility] # 50, Partial fill upon patient request if the prescription is for a schedule II opioid feliberto... Start Date: 10/26/20 Status: OrderedFlovent HFA 110 mcg/inh inhalation aerosol 2 puffs, Inhalation, 2 times a day, # 1 each, 5 Refills, Maintenance, 08/22/20 18:56:00 EST, Aerosol, [facility] # 50, 149.9, cm, 06/07/20 11:48:00 EST, Height, 68.9, kg, 07/12/19 14:56:00 EST, DryWeight Start Date: 08/22/20 Status: OrderedFLUoxetine 40 mg oral capsule 1 capsule = 40 mg, By Mouth, Daily, # 30 capsule, 5 Refills, Maintenance, 08/13/20 10:39:00 EST, Capsule, [facility] # 50, 149.9, cm, 06/07/20 [...] hours, # 84 tablet, 0 Refills, Maintenance, 10/03/20 7:38:00 EST,Tablet, [facility] # 50, partial fill upon request, 10/10/20, 149.9, cm, 08/28/20 14:48:00 EST, Height, 68.9, kg, 07/12/19 14:56:00 EST, Dry Weight Start Date: 10/03/20 Stop Date: 10/31/20 Status: Orderedlevothyroxine 125 mcg (0.125 mg) oral tablet 1 tablet = 125 mcg, By Mouth, Daily, # 30 tablet, 5 Refills, Maintenance, 10/10/20 7:25:00 EDT, Tablet, [facility] # 50, 149.9, cm, 08/28/20 14:48:00 EST, Height, 68.9, kg, 07/12/19 14:56:00 EST, Dry Weight Start Date: 10/10/20 Status: Orderedmetoprolol 25 mg oral tablet 25 mg, 1, tablet, By Mouth, 2 times a day, # 60 tablet, Refills 2, Tot. Refills 2, Maintenance, 08/13/20 10:39:00 EST, Route to Pharmacy Electronically, [facility] # 50, 149.9, cm, 06/07/20 11:48:00 EST, Height, 68.9, kg, 07/12/19 14:56:00 EST, DrClementina.. Start Date: 08/13/20 Status: OrderedPriLOSEC OTC 20 mg oral delayed release tablet 1 tablet = 20 mg, By Mouth, Daily, # 90 tablet, 0 Refills, Maintenance, 08/07/20 11:06:00 EST, CR Tablet, [facility] # 50, 149.9, cm, 06/07/20 11:48:00 EST, Height, 68.9, kg, 07/12/19 14:56:00 EST,Dry Weight Start Date: 08/07/20 Status: Orderedrosuvastatin 10 mg oral capsule 1 capsule = 10 mg, By Mouth, Daily, # 30 capsule, 11 Refills, Maintenance, 08/29/20 15:01:00 EST, Capsule, [facility] # 50, Partial fill upon patient request if the prescription is for a schedule II opioid drug., 149.9, cm, 08/28/20 14:48:00 EST,... Start Date: 08/29/20 Status: OrderedVentolin HFA 108 mcg/inh inhalation aerosol with adapter 2 puffs, Inhalation, 4 times a day, PRN for wheezing, # 1 each, 5 Refills, Maintenance, 10/18/20 9:01:00 EDT, Aerosol, [facility] # [facility], 149.9, cm, 08/28/20 [...] ductal lumpectomy/xrt/tamoxifen 2012(Confirmed)22, 23 History of (NSTEMI) 2016 11/10/15 Active TIBURCIO(Confirmed)24 [...] Active use(Confirmed) Vitamin D Deficiency(Confirmed) Active 1per gastroenterology;azghzee2Ytfbutpx to gastroenterology no-show for iejpepuysdb4nht9 40%4chronic jvlffvpjle4ACNF:2 low ndxbo3CHHQ test 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,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 dxfobag8tpkafp repeat sdx; injections,fentanyl,morphine,oxycodone er8Dr Oh no surgery re neck,rmxe2qoe Dr King,yesterday NO SURGERY, rx corsett,pool10 evaluated by two neurosurgeons,pain dqkbgvdh26mphsu zb63Vjeruc 24-hour urine svbauebl00ZRQK increased alpha2 nsftjxqmh42yetoaa iron,ferrritin,cderloplasmin; neg HEP a,B,I63aokwbed Oswestry Disability Index: 48% ( severe disability ) on 04/15/16; updated [place] Back Pain Scale:44 on 04/15/16; updated [place]: 7 on 04/15/1616Initial Oswestry Disability Index: 48% ( severe disability ) on 11/24/14; initial [place] Back Pain Scale: 48 on 11/24/14; initial [place]: 5 on 11/24/1516egd . Bilateral common femoral artery endarterectomy. 3. Left common femoral artery patch angioplasty with PTFE. 4. 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 CURRENT THERAPY: Tamoxifen started in 11/17/14, prior anastrozole 11/2012- 09/2014, zoledronic acid, received 02/2015 and 08/2015.31kinmk60Zvzuxiiucwlwqz Summary Successful drug eluting stenting of the proximal LAD coronary artery with a 3.5X15 mm plus 3.0X8 mm Xience Alpine stents as described above. The second stent was needed to cover distal edge of th efirst stent in an overlapping fashion. 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
--- OUTSIDE RECORDS SUMMARY | 2022-06-11 12:41 | XMS_ITS | Continuity of Care Document ---
:1945 Author Organization [facility] Address [address] [place] [address]- Care Team Providers Name Role Phone Chino Vasquez MD Primary Care Physician Encounter [facility] [place] [place] Date(s): 08/29/20 - 09/05/20 [facility] [address] [place] [id number]- Encounter Diagnosis Chronic Pain Syndrome (Discharge Diagnosis) - 08/29/20 Failed back syndrome, lumbar (Discharge Diagnosis) - 08/29/20 Depression, major (Discharge Diagnosis) - 08/29/20 PAD (peripheral artery disease)stenting 2016 (Discharge Diagnosis) - 08/29/20 Fatty liver (Discharge Diagnosis) - 08/29/20 Chronic renal disease, stage III (Discharge Diagnosis) - 08/29/20 Essential familial hyperlipidemia (Discharge Diagnosis) - 08/29/20 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) - 08/29/20 Coronary artery disease (Discharge Diagnosis) - 08/29/20 Benign Essential Hypertension (Discharge Diagnosis) - 08/29/20 Gastro-esophageal reflux EGD 2011 (Discharge Diagnosis) - 08/29/20 Deficiency of vitamin B12 (Discharge Diagnosis) - 08/29/20 Diverticulosis, sigmoid;colonoscopy (Discharge Diagnosis) - 08/29/20 Hypothyroidism following radioiodine therapy (Discharge Diagnosis) - 08/29/20 Chronic prescription opiate use (Discharge Diagnosis) - 08/29/20 Impaired Fasting Glucose (Discharge Diagnosis) - 08/29/20 Osteopenia (Discharge Diagnosis) - 08/29/20 Vitamin D Deficiency (Discharge Diagnosis) - 08/29/20 Attending Physician: Chino Vasquez MD Allergies, Adverse Reactions, Alerts Substance Reaction Severity Status atorvastatin1 Active amLODIPine2 Active 4ojpx8wcgzo Immunizations Given and Recorded Vaccine Date Status [...] Given P atient Refuses 1Result Comment: [05/27/2017] [facility] [id number]/Late Reason: Wan to Standard Admin [id number] Note: #24Admin Note: historical data Medications Aspirin [...] 5 Refills, Maintenance, 08/22/20 18:56:00 EST, Aerosol, [facility] # 50, 149.9, cm, 06/07/20 11:48:00 EST, Height, 68.9, kg, 07/12/19 14:56:00 EST, DryWeight Start Date: 08/22/20 Status: OrderedFLUoxetine 40 mg oral capsule 1 capsule = 40 mg, By Mouth, Daily, # 30 capsule, 5 Refills, Maintenance, 08/13/20 10:39:00 EST, Capsule, [facility] # 50, 149.9, cm, 06/07/20 11:48:00 EST, Height, 68.9, kg, 07/12/19 14:56:00 EST,Dry Weight Start Date: 08/13/20 Status: Orderedfurosemide 20 mg oral tablet 20 mg, 1, tablet, By Mouth, Daily, # 30 tablet, Refills 2, Tot. Refills 2, Maintenance, 07/03/20 12:15:00 EST, Route to Pharmacy Electronically, [facility] # 50, 149.9, cm, 06/07/20 [...] hours, # 84 tablet, 0 Refills, Maintenance, 09/05/20 8:00:00 EST,Tablet, [facility] # 50, partial fill upon request, 09/12/20, 149.9, cm, 08/28/20 14:48:00 EST, Height, 68.9, kg, 07/12/19 14:56:00 EST, Dry Weight Start Date: 09/05/20 Stop Date: 10/03/20 Status: Orderedlevothyroxine 125 mcg (0.125 mg) oral tablet 1 tablet = 125 mcg, By Mouth, Daily, # 30 tablet, 5 Refills, Maintenance, 04/17/20 13:45:00 EDT, Tablet, [facility] # 50, 149.9, cm, 02/14/20 11:11:00 EDT, Height, 68.9, kg, 07/12/19 14:56:00 EST, Dry Weight Start Date: 04/17/20 Status: Orderedmetoprolol 25 mg oral tablet 25 mg, 1, tablet, By Mouth, 2 times a day, # 60 tablet, Refills 2, Tot. Refills 2, Maintenance, 08/13/20 10:39:00 EST, Route to Pharmacy Electronically, [facility] # 50, 149.9, cm, 06/07/20 11:48:00 EST, Height, 68.9, kg, 07/12/19 14:56:00 EST, DrClementina.. Start Date: 08/13/20 Status: OrderedPriLOSEC OTC 20 mg oral delayed release tablet 1 tablet = 20 mg, By Mouth, Daily, # 90 tablet, 0 Refills, Maintenance, 08/07/20 11:06:00 EST, CR Tablet, [facility] # 50, 149.9, cm, 06/07/20 11:48:00 EST, Height, 68.9, kg, 07/12/19 14:56:00 EST,Dry Weight Start Date: 08/07/20 Status: Orderedrosuvastatin 10 mg oral capsule 1 capsule = 10 mg, By Mouth, Daily, # 30 capsule, 11 Refills, Maintenance, 08/29/20 15:01:00 EST, Capsule, [facility] # 50, Partial fill upon patient request if the prescription is for a schedule II opioid drug., 149.9, cm, 08/28/20 14:48:00 EST,... Start Date: 08/29/20 Status: OrderedVentolin HFA 108 mcg/inh inhalation aerosol with adapter 2 puffs, Inhalation, 4 times a day, PRN for wheezing, # 1 each, 5 Refills, Maintenance, 04/25/20 11:09:00 EDT, Aerosol, [facility], 149.9, cm, 02/14/20 [...] 11 Refills, Maintenance, 11/08/19 8:36:00 EDT, Tablet, [facility] # [facility], 149.9, cm, 10/14/19 14:23:00 [...] Active sigmoid;colonoscopy(Confirmed) Essential familial Active hyperlipidemia(Confirmed) Ex-smoker, 1/ ppd X23 years, quit Active 1997(Confirmed) Excessive [...] Active use(Confirmed) Vitamin D Deficiency(Confirmed) Active 1per gastroenterology;zgdafei3Ptmnyswh to gastroenterology no-show for dkueywfzpni7asu4 40%4chronic pqhuqbvzmq0AVUC:2 low tvwjw6IINE test 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,MASS 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 qntcwln2zgcett repeat sdx; injections,fentanyl,morphine,oxycodone er8Dr Oh no surgery re neck,fhdi9htn Dr King,yesterday NO SURGERY, rx corsett,pool10 evaluated by two neurosurgeons,pain zljptbuf16fpuum ir11Wzotsx 24-hour urine strbkytc42QCOB increased alpha2 joceqgwup16xmbhau iron,ferrritin,cderloplasmin; neg HEP a,B,F59kzofmea Oswestry Disability Index: 48% ( severe disability ) on 04/15/16; updated [place] Back Pain Scale:44 on 04/15/16; updated [place]: 7 on 04/15/1616Initial [place]estry Disability Index: 48% ( severe disability ) on 11/24/14; initial [place] Back Pain Scale: 48 on 11/24/14; initial [place]: 5 on 11/24/1516egd . Bilateral common femoral artery endarterectomy. 3. Left common femoral artery patch angioplasty with PTFE. 4. 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 CURRENT THERAPY: Tamoxifen started in 11/17/14, prior anastrozole 11/2012- 09/2014, zoledronic acid, received 02/2015 and 08/2015.95esanq37Kxjblwstzguctj Summary Successful drug eluting stenting of the proximal LAD coronary artery with a 3.5X15 mm plus 3.0X8 mm Xience Alpine stents as described above. The second stent was needed to cover distal edge of th efirst stent in an overlapping fashion. The stents were post-dilated using a 3.5 mm non-compliant balloon.25 now hyperthyroid,exopthalmous;Dr MurphyEfqheb15opqqtwf pre diabetes increased risk pvhxzxow01fcmztt59gy stable;recheck 12 mbmath66yrejx lung nodules on neck CT recheck 6 ctyjdy05NLX2x ndp83JAa5 four low uehtl56fwgd normal,b12 low vxktik23 fit terst wes56hyomlnk D deficiency;correcting Diagnosis Diagnosis Type Effective Dates Health Clinical Infor mant Status Service Chronic Pain Discharge 08/29/20 Syndrome Diagnosis Failed back Discharge 08/29/20 syndrome, lumbar Diagnosis Depression, major Discharge 08/29/20 Diagnosis PAD (peripheral Discharge 08/29/20 artery Diagnosis disease)stenting 2015 Benign Essential Discharge 08/29/20 Hypertension Diagnosis Essential familial Discharge 08/29/20 hyperlipidemia Diagnosis COPD with asthma Discharge 08/29/20 fev1 40% Diagnosis Chronic renal Discharge 08/29/20 disease, stage III Diagnosis Fatty liver Discharge 08/29/20 Diagnosis Coronary artery Discharge 08/29/20 disease Diagnosis Gastro-esophageal Discharge 08/29/20 reflux EGD 2011 Diagnosis Deficiency of Discharge 08/29/20 vitamin B12 Diagnosis Diverticulosis, Discharge 08/29/20 sigmoid;colonoscopy Diagnosis Hypothyroidism Discharge 08/29/20 following Diagnosis radioiodine therapy Impaired Fasting Discharge 08/29/20 Glucose Diagnosis Osteopenia Discharge 08/29/20 Diagnosis Vitamin D Deficiency Discharge 08/29/20 Diagnosis Chronic prescription Discharge 08/29/20 opiate use Diagnosis Vital Signs Most recent to oldest [Reference Range]: 1 Height 149.9 cm (08/28/20 2:48 PM) Social History Social History Type Response 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
--- OUTSIDE RECORDS SUMMARY | 2022-06-11 12:41 | XMS_ITS | Continuity of Care Document ---
:1945 Author Organization [facility] Address [address] [place] [address]- Care Team Providers Name Role Phone Chino Vasquez MD Primary Care Physician [place] [facility] [place]21 [place] 04/10/21 [facility] [address] [place] [address]- Attending Physician: Solange Starr NP Referring Physician: Chino Vasquez MD Allergies, Adverse Reactions, Alerts Substance Reaction Severity Status spironolactone1 Active lisinopril2 Active atorvastatin3 Active amLODIPine4 Active 7xmdxk9gqhxjfe atmulfuf1mepf2yjynn Immunizations Given and Recorded Vaccine Date Status [...] Vaccine3 06/15/12 Given Hepatitis A Adult Vaccine 5/31/12 Given FluLaval (oldterm) 04/08/12 Given FluLaval (oldterm) [...] Given P atient Refuses 1Result Comment: [05/27/2017] [facility] [id number]/Late Reason: Wan to Standard Admin [id number] Note: #24Admin Note: historical data Medications aspirin [...] By Mouth, 2 times a day, # 45 each, Refills 1, Tot. Refills 1, Maintenance, 04/03/21 13:25:00 EDT, Route to Pharmacy Electronically, [facility] # [facility], Partial fill upon patient request if the prescription is for a schedule II opio... Start Date: 04/03/21 Status: Orderedchlorthalidone 25 mg oral tablet See Instructions, TAKE ONE TABLET BY MOUTH EVERY DAY, # 30 tablet, Refills 5, Tot. Refills 5, Maintenance, 02/20/21 1:48:00 EDT, Instructions Replace Required Details, Route to Pharmacy Electronically,[facility] # [facility], 149, cm, 02/09/21 10:03:00 E... Start Date: 02/20/21 Status: Ordereddocusate sodium 100 mg oral capsule 100 mg, 1, capsule, By Mouth, Daily, PRN, Maintenance, as needed for constipation, 12/21/20 16:05:00EDT, ; Start Date: 12/21/20 Status: Ordereddoxycycline hyclate 100 mg oral capsule 2 capsule = 200 mg, By Mouth, Once, # 2 capsule, 0 Refills, Soft Stop, 03/27/21 10:17:00 EDT, [facility] # 50, Partial fill upon patient request if the prescription is for a schedule II opioid drug., 149, cm, 03/27/21 10:16:00 EDT, Height, 68.9, k... Start Date: 03/27/21 Status: OrderedFlovent HFA 110 mcg/inh inhalation aerosol See Instructions, INHALE 2 PUFFS TWO TIMES A DAY, # 12 Gm, 5 Refills, Maintenance, [facility] # 50, 149, cm, 02/09/21 10:03:00 EDT, Height, 68.9, kg, 12/21/20 8:52:00 EDT, Dry Weight Start Date: 02/09/21 Status: OrderedFLUoxetine 40 mg oral capsule See Instructions, TAKE 1 CAPSULE BY MOUTH DAILY., # 30 capsule, 5 Refills, Maintenance, [facility] # 50, 149, cm, 02/09/21 [...] hours, # 84 tablet, 0 Refills, Maintenance, 03/27/21 7:54:00 EDT,Tablet, [facility] # 50, partial fill upon request, 04/03/21, 149, cm, 02/09/21 10:03:00 EDT, Height, 68.9, kg, 12/21/20 8:52:00 EDT, Dry Weight Start Date: 03/27/21 Stop Date: 04/24/21 Status: OrderedImodium A-D 2 mg, By Mouth, Refills 0, Maintenance, 01/09/21 15:24:00 EDT, Partial fill upon patient request if the prescription is for a schedule II opioid drug. Start Date: 01/09/21 Status: Orderedlevothyroxine 125 mcg (0.125 mg) oral tablet 1 tablet = 125 mcg, By Mouth, Daily, # 30 tablet, 5 Refills, Maintenance, 10/10/20 7:25:00 EDT, Tablet, [facility] # 50, 149.9, cm, 08/28/20 14:48:00 EST, Height, 68.9, kg, 07/12/19 14:56:00 EST, Dry Weight Start Date: 10/10/20 Status: OrderedoxyCODONE 5 mg oral tablet 5 mg, 1, tablet, By Mouth, Every 6 hours, PRN, # 5 tablet, Refills 0, Tot. Refills 0, Maintenance, Pain , Severe, 12/27/20 9:18:00 EDT, Route to Pharmacy Electronically, [facility], Partial fill upon patient [...] 01/22/21 11:44:00 EDT, Route to Pharmacy Electronically, [facility] # 50, 149, cm, 01/18/21 11:04:00 EDT, Height, 68.9, kg, 12/21/20 8:52:00 EDT, Dry Weight Start Date: 01/22/21 Status: Orderedrosuvastatin 10 mg oral capsule 1 capsule = 10 mg, By Mouth, Daily, # 30 capsule, 11 Refills, Maintenance, 08/29/20 15:01:00 EST, Capsule, [facility] # 50, Partial fill upon patient request if the prescription is for a schedule II opioid drug., 149.9, cm, 08/28/20 14:48:00 EST,... Start Date: 08/29/20 Status: OrderedTylenol 325 mg oral tablet 650 mg, 2, tablet, By Mouth, Every 4 hours, PRN, # 24 tablet, Refills 0, Tot. Refills 0, Maintenance, Pain , Mild, 12/27/20 9:18:00 EDT, Route to Pharmacy Electronically, [facility], Partial fill upon patient request if the prescription... Start Date: 12/27/20 Status: OrderedVentolin HFA 108 mcg/inh inhalation aerosol with adapter See Instructions, INHALE 2 PUFFS FOUR TIMES A DAY NEEDED FOR WHEEZING, # 18 Gm, 2 Refills, Maintenance, [facility] # 50, 149, cm, 02/09/21 [...] breast cancer Left, IDC, Active pT1c pN0, ER/OK positive, Her-2/angelito negative, 2012(Confirmed)22, 23 History of (NSTEMI) 2016 11/10/15 Active TIBURCIO(Confirmed)24 S/P drug eluting coronary stent [...] Active use(Confirmed) Vitamin D Deficiency(Confirmed) Active 1per gastroenterology;uunibpd2Vxpuwjwm to gastroenterology no-show for slkvqteiesq8gjt3 40%4chronic ojlkkwgncd4XSXN:2 low bceuy3YLVZ 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,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 optsnuy6dayesx repeat sdx; injections,fentanyl,morphine,oxycodone er8Dr Oh no surgery re neck,gsbg2muu Dr King,yesterday NO SURGERY, rx corsett,pool10 evaluated by two neurosurgeons,pain lbsudjyj21dspxi xx45Dprewx 24-hour urine xkspqdlv11OYBY increased alpha2 mtglsixyr20yrbgme iron,ferrritin,cderloplasmin; neg HEP a,B,R88vkkwfvx Oswestry Disability Index: 48% ( severe disability ) on 04/15/16; updated [place] Back Pain Scale:44 on 04/15/16; updated [place]: 7 on 04/15/1616Initial [place] Disability Index: 48% ( severe disability ) on 11/24/14; initial [place] Back Pain Scale: 48 on 11/24/14; initial [place]: 5 on 11/24/1516egd . Bilateral common femoral artery endarterectomy. 3. Left common femoral artery patch angioplasty with PTFE. 4. 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 CURRENT THERAPY: Tamoxifen started in 11/17/14, prior anastrozole 11/2012- 09/2014, zoledronic acid, received 02/2015 and 08/2015.51mdnrm59Lidnjuygtnbyeg Summary Successful drug eluting stenting of the proximal LAD coronary artery with a 3.5X15 mm plus 3.0X8 mm Xience Alpine stents as described above. The second stent was needed to cover distal edge of th efirst stent in an overlapping fashion. The stents were post-dilated using a 3.5 mm non-compliant balloon.25 now hyperthyroid,exopthalmous;Dr MurphyMywaib33hxvzuqa pre diabetes increased risk hscpmjhj62ftklnw36rb stable;recheck 12 vlwswn73etqnl lung nodules on neck CT recheck 6 hgegem06ZML7t xdu94DEm5 four low bcsko38prks normal,b12 low yaydex46 fit terst jbk25chtphrv D deficiency;correcting Vital Signs Most recent to oldest [Reference 1 2 3 Range]: Oxygen Saturation [94-100 %] 97 % (04/03/21 1:13 PM) Pulse Rate [55-90 bpm] 82 bpm (04/03/21 1:13 PM) Blood Pressure [90-138/55-84 mm 142/60 mm Hg 150/78 mm Hg 164/70 mm Hg Hg] *H* *H* *H* (04/06/21 1:52 PM) (04/03/21 1:26 PM) (04/03/21 1:13 PM) Blood pressure sites Arm, right Arm, right Arm, right (04/06/21 1:52 PM) (04/03/21 1:26 PM) (04/03/21 1:13 PM) Social History Social History Type Response 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
--- OUTSIDE RECORDS SUMMARY | 2022-06-11 12:41 | XMS_ITS | Continuity of Care Document ---
:1945 Author Organization [facility] Address [address] [place] [address]- Care Team Providers Name Role Phone Christina BAZAN, Chino Dao Primary Care Physician Encounter [facility] [place] Date(s): 04/03/21 - 05/03/21 [facility] [address] [place] [address]- Attending Physician: Saurabh Coronado Admitting Physician: Saurabh Coronado Referring Physician: AdmtrSaurabh Allergies, Adverse Reactions, Alerts Substance Reaction Severity Status spironolactone1 Active lisinopril2 Active atorvastatin3 Active amLODIPine4 Active 0kpxqa0xkdiyhm yekbyjrz9rkeb9pgcfk Immunizations Given and Recorded Vaccine Date Status [...] Comment: [05/27/2017] [facility] [id number]/Late Reason: Wan to Standard Admin [id number] Note: #24Admin Note: historical data Medications aspirin [...] EDT, Route to Pharmacy Electronically, [facility] # [facility], 149, cm, 03/29/21 11:00:00EDT, Height, 68.9, kg, 12/21/20 8:52:00 EDT, Dry... Start Date: 04/25/21 Status: Orderedchlorthalidone 25 mg oral tablet See Instructions, TAKE ONE TABLET BY MOUTH EVERY DAY, # 30 tablet, Refills 5, Tot. Refills 5, Maintenance, 02/20/21 1:48:00 EDT, Instructions Replace Required Details, Route to Pharmacy Electronically,[facility] # [facility], 149, cm, 02/09/21 10:03:00 E... Start Date: 02/20/21 Status: OrderedcloNIDine 0.1 mg oral tablet 0.1 mg, 1, tablet, By Mouth, 2 times a day, # 60 tablet, Refills 6, Tot. Refills 6, Maintenance, 04/13/21 5:37:00 EDT, Route to Pharmacy Electronically, [facility] # 50, Partial fill upon patient request if the prescription is for a schedule II op... Start Date: 04/13/21 Status: Orderedclopidogrel 75 mg oral tablet 1, tablet, By Mouth, Daily, # 90 tablet, Refills 0, Route to Pharmacy Electronically, [facility], 149, cm, 03/29/21 11:00:00 [...] Soft Stop, 03/27/21 10:17:00 EDT, [facility] # 50, Partial fill upon patient request if the prescription is for a schedule II opioid drug., 149, cm, 03/27/21 10:16:00 EDT, Height, 68.9, k... Start Date: 03/27/21 Status: OrderedFlovent HFA 110 mcg/inh inhalation aerosol See Instructions, INHALE 2 PUFFS TWO TIMES A DAY, # 12 Gm, 5 Refills, Maintenance, [facility] # [facility], 149, cm, 02/09/21 10:03:00 EDT, Height, 68.9, kg, 12/21/20 8:52:00 EDT, Dry Weight Start Date: 02/09/21 Status: OrderedFLUoxetine 40 mg oral capsule See Instructions, TAKE 1 CAPSULE BY MOUTH DAILY., # 30 capsule, 5 Refills, Maintenance, [facility] # [facility], 149, cm, 02/09/21 10:03:00 EDT, Height, 68.9, kg, 12/21/20 8:52:00 EDT, Dry Weight Start Date: 02/12/21 Status: Orderedhydrocortisone 2.5% topical cream 1 application, Topically, 3 times a day, # 30 Gm, 1 Refills, Maintenance, 01/09/21 12:15:00 EDT, Cream, [facility] # [facility], 1 application Topically 3 times a day, 149.9, cm, 01/09/21 12:01:00 EDT, Height, 68.9, kg, 12/21/20 8:52:00 EDT, Dry Weight Start Date: 01/09/21 Status: OrderedHYDROmorphone 4 mg oral tablet 1 tablet = 4 mg, By Mouth, Every 8 hours, # 84 tablet, 0 Refills, Maintenance, 04/17/21 12:57:00 EDT, Tablet, [facility] # [facility], partial fill upon request, 05/01/21, 149, cm, 03/29/21 11:00:00 EDT, Height, 68.9, kg, 12/21/20 8:52:00 EDT, Dry Weight Start Date: 04/17/21 Stop Date: 05/15/21 Status: OrderedImodium A-D 2 mg, By Mouth, Refills 0, Maintenance, 01/09/21 15:24:00 EDT, Partial fill upon patient request if the prescription is for a schedule II opioid drug. Start Date: 01/09/21 Status: Orderedlevothyroxine 125 mcg (0.125 mg) oral tablet See Instructions, TAKE ONE TABLET BY MOUTH EVERY DAY, # 30 tablet, 5 Refills, [facility], 149, cm, 03/29/21 11:00:00 EDT, Height, 68.9, kg, 12/21/20 8:52:00 EDT, Dry Weight Start Date: 04/16/21 Status: OrderedoxyCODONE 5 mg oral tablet 5 mg, 1, tablet, By Mouth, Every 6 hours, PRN, # 5 tablet, Refills 0, Tot. Refills 0, Maintenance, Pain , Severe, 12/27/20 9:18:00 EDT, Route to Pharmacy Electronically, [facility], Partial fill upon patient request if [...] Maintenance, 08/29/20 15:01:00 EST, Capsule, [facility] # [facility], Partial fill upon patient request if the prescription is for a schedule II opioid drug., 149.9, cm, 08/28/20 14:48:00 EST,... Start Date: 08/29/20 Status: OrderedTylenol 325 mg oral tablet 650 mg, 2, tablet, By Mouth, Every 4 hours, PRN, # 24 tablet, Refills 0, Tot. Refills 0, Maintenance, Pain , Mild, 12/27/20 9:18:00 EDT, Route to Pharmacy Electronically, [facility], Partial fill upon patient request if the prescription... 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 pyvmbhu2putrtq repeat sdx; injections,fentanyl,morphine,oxycodone er8Dr Oh no surgery re neck,kuso6tfj Dr King,yesterday NO SURGERY, rx corsett,pool10 evaluated by two neurosurgeons,pain skfhrflx92nhesm tf81Vbkkgu 24-hour urine frklfaig44GTTP increased alpha2 nmzjvivwg23stbgub iron,ferrritin,cderloplasmin; neg HEP a,B,Q90ybixnwo Oswestry Disability Index: 48% ( severe disability ) on 04/15/16; updated [place] Back Pain Scale:44 on 04/15/16; updated [place]: 7 on 6Initial [place] Disability Index: 48% ( severe disability ) on 11/24/14; initial [place] Back Pain Scale: 48 on 11/24/14; initial [place]: 5 on 7egd . Bilateral common femoral artery endarterectomy. 3. Left common femoral artery patch angioplasty with PTFE. 4. 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 CURRENT THERAPY: Tamoxifen started in 11/17/14, prior anastrozole 11/2012- 09/2014, zoledronic acid, received 02/2015 and 08/2015.75uyzii47Hqsxpfdqukswcc Summary Successful drug eluting stenting of the proximal LAD coronary artery with a 3.5X15 mm plus 3.0X8 mm Xience Alpine stents as described above. The second stent was needed to cover distal edge of th efirst stent in an overlapping fashion. 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
--- OUTSIDE RECORDS SUMMARY | 2022-06-11 12:41 | XMS_ITS | Continuity of Care Document ---
:1945 Author Organization [facility] Address [address] [place] [phone]- Care Team Providers Name Role Phone Chino Vasquez MD Primary Care Physician Encounter [facility] Date(s): 07/25/20 - 08/01/20 [facility] [address] [place] [address]- Attending Physician: Cheryl Mcginnis NP Admitting Physician: Cheryl Mcginnis NP Referring Physician: Chino Vasquez MD Allergies, Adverse Reactions, Alerts Substance Reaction Severity Status atorvastatin1 Active amLODIPine2 Active 2rwky3pczsa Immunizations Given and Recorded Vaccine Date Status [...] Given P atient Refuses 1Result Comment: [05/27/2017] [facility] [id number]/Late Reason: Wan to Standard Admin [id number] Note: #24Admin Note: historical data Medications Aspirin = 81 mg, By Mouth, Daily, 0 Refills, Maintenance Start Date: 12/26/11 Status: OrderedBevespi Aerosphere 9 mcg-4.8 mcg/inh inhalation aerosol 2 puffs, Inhalation, 2 times a day, 4 by 28 doses, # 5.9 Gm, 11 Refills, Maintenance, 04/25/20 11:19:00 EDT, [facility] # [facility], 2 puffs Inhalation [...] 5 Refills, Maintenance, 02/18/20 16:43:00 EDT, Aerosol, [facility] # 50, 149.9, cm, 02/14/20 11:11:00 EDT, Height, 68.9, kg, 07/12/19 14:56:00 EST, DryWeight Start Date: 02/18/20 Status: OrderedFLUoxetine 40 mg oral capsule 1 capsule = 40 mg, By Mouth, Daily, # 30 capsule, 5 Refills, Maintenance, 02/14/20 14:03:00 EDT, Capsule, [facility] # 50, 149.9, cm, 02/14/20 11:11:00 EDT, Height, 68.9, kg, 07/12/19 14:56:00 EST,Dry Weight Start Date: 02/14/20 Status: Orderedfurosemide 20 mg oral tablet 20 mg, 1, tablet, By Mouth, Daily, # 30 tablet, Refills 2, Tot. 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 nhenuhe1grdqod repeat sdx; injections,fentanyl,morphine,oxycodone er8Dr Oh no surgery re neck,lext7axx Dr King,yesterday NO SURGERY, rx corsett,pool10 evaluated by two neurosurgeons,pain qnuoeuhy94oggbt mx64Wwlpov 24-hour urine jtkyoumz86MOOO increased alpha2 dfhwgoogs45idkgkm iron,ferrritin,cderloplasmin; neg HEP a,B,N33cciqrww Oswestry Disability Index: 48% ( severe disability ) on 04/15/16; updated [place] Back Pain Scale:44 on 04/15/16; updated [place]: 7 on 04/15/1616Initial Oswestry Disability Index: 48% ( severe disability ) on 11/24/14; initial [place] Back Pain Scale: 48 on 11/24/14; initial [place]: 5 on 11/24/1516egd . Bilateral common femoral artery endarterectomy. 3. Left common femoral artery patch angioplasty with PTFE. 4. 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 CURRENT THERAPY: Tamoxifen started in 11/17/14, prior anastrozole 11/2012- 09/2014, zoledronic acid, received 02/2015 and 08/2015.63ulgzf95Izjijcybmzcwxu Summary Successful drug eluting stenting of the proximal LAD coronary artery with a 3.5X15 mm plus 3.0X8 mm Xience Alpine stents as described above. The second stent was needed to cover distal edge of th efirst stent in an overlapping fashion. 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
--- OUTSIDE RECORDS SUMMARY | 2022-06-11 12:41 | XMS_ITS | Continuity of Care Document ---
:1945 Author Organization [facility] Address [address] [place] [phone]- Care Team Providers Name Role Phone Chino Vasquez MD Primary Care Physician Encounter [facility] Date(s): 11/06/21 - 11/13/21 [facility] [address] [address]- Attending Physician: Chino Vasquez MD Admitting Physician: Chino Vasquez MD Referring Physician: Chino Vasquez MD Allergies, Adverse Reactions, Alerts Substance Reaction Severity Status spironolactone1 Active lisinopril2 Active thiazide diuretics3 Active amLODIPine4 Active atorvastatin5 Active 5ubshh0wsapxfu fydfbaet9fgvfywxxguzm2orscj1chge Immunizations Given and Recorded Vaccine Date Status Refusal Reason pneumococcal 23-valent vaccine1 06/19/21 Given influenza virus vaccine, inactivated2 06/19/21 Given influenza virus vaccine, inactivated 05/16/20 Given influenza virus vaccine, inactivated 07/19/19 Given influenza virus vaccine, inactivated 04/14/18 Recorded influenza virus vaccine, inactivated3 05/27/17 Given influenza virus vaccine, inactivated4 05/17/16 Given influenza virus vaccine, inactivated 07/26/15 [...] 13-valent vaccine 08/30/14 Recorded Hepatitis A Adult Vaccine5 06/15/12 Given Hepatitis A Adult Vaccine 12/26/11 Given FluLaval (oldterm) 04/08/12 Given FluLaval (oldterm) 05/31/10 Given tetanus/diphtheria/pertussis, acel(Tdap) 03/18/12 Given Hepatitis B Vaccine (old term) 02/03/12 Given Hepatitis B Vaccine (old term) 02/03/12 Given hepatitis B adult vaccine 12/26/11 Given Fluzone (oldterm) 08/04/09 Given Influenza Virus Vaccine (oldterm) 06/03/08 Given Influenza Inactive (IM) (oldterm) 06/03/07 Given tetanus-diphtheria toxoids (Td) 12/01/06 Given Pneumococcal Vaccine (oldterm)6 06/03/98 Given Not Given Vaccine Date Status Refusal Reason pneumococcal 23-valent vaccine 08/13/14 Not Given P atient Refuses 1Result Comment: [facility]: [id number] Comment: [facility]: [id number] Comment: [05/27/2017] [facility] [id number]/Late Reason: Wan to Standard Admin [id number] Note: #26Admin Note: historical data Medications aspirin 81 mg [...] tablet, Refills 0, Route to Pharmacy Electronically, [facility] # 50, 149, cm, 10/16/21 14:48:00 EDT, Height, 68.9, kg, 12/21/20 8:52:00 EDT, Dry Weight Start Date: 10/17/21 Status: OrderedcloNIDine 0.1 mg oral tablet See Instructions, TAKE ONE TABLET BY MOUTH TWICE A DAY, # 60 tablet, Refills 5, Instructions ReplaceRequired Details, Route to Pharmacy Electronically, [facility] # 50, 149, cm, 10/18/21 [...] 30 tablet, 5 Refills, 11/12/21 9:33:00 EDT, [facility] # 50, 149, cm, 10/18/21 12:13:00 EDT, Height, 68.9, kg, 12/21/20 8:52:00 EDT, Dry Weight Start Date: 11/12/21 Status: OrderedFLUoxetine 40 mg oral capsule See Instructions, TAKE 1 CAPSULE BY MOUTH DAILY., # 30 capsule, 5 Refills, 08/15/21 13:23:00 EST, [facility] # 50, 149, cm, 08/15/21 11:10:00 EST, Height, 68.9, kg, 12/21/20 8:52:00 EDT, Dry Weight Start Date: 08/15/21 Status: Orderedhydrocortisone 2.5% topical cream 1 application, Topically, 3 times a day, # 30 Gm, 1 Refills, Maintenance, 01/09/21 12:15:00 EDT, Cream, [facility] # 50, 1 application Topically 3 times a day, 149.9, cm, 01/09/21 12:01:00 EDT, Height, 68.9, kg, 12/21/20 8:52:00 EDT, Dry Weight Start Date: 01/09/21 Status: OrderedHYDROmorphone 4 mg oral tablet 1 tablet = 4 mg, By Mouth, Every 8 hours, # 84 tablet, 0 Refills, Maintenance, 11/06/21 9:15:00 EDT,Tablet, [facility] # 50, partial fill [...] # 30 tablet, 5 Refills, 10/11/21 14:05:00 EDT,[facility] # 50, 149, cm, 08/15/21 [...] 11 Refills, Maintenance, 08/15/21 13:23:00 EST, Capsule, [facility] # 50, Partial fill upon patient request if the prescription is for a schedule II opioid drug., 149, cm, 08/15/21 11:10:00 EST, He... Start Date: 08/15/21 Status: OrderedTylenol 325 mg oral tablet 650 mg, 2, tablet, By Mouth, Every 4 hours, PRN, # 24 tablet, Refills 0, Tot. Refills 0, Maintenance, Pain , Mild, 12/27/20 9:18:00 EDT, Route to Pharmacy Electronically, [facility], Partial fill upon patient request if the prescription... 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 bqagltk3olzjot repeat sdx; injections,fentanyl,morphine,oxycodone er8Dr Oh no surgery re neck,krpd6upn Dr King,yesterday NO SURGERY, rx corsett,pool10 evaluated by two neurosurgeons,pain bbrvcbxr57zpyzg ls73Tmotrz 24-hour urine wiomzuxz91OBWE increased alpha2 jtapaxfwo74jsatnr iron,ferrritin,cderloplasmin; neg HEP a,B,W37obyzohc Oswestry Disability Index: 48% ( severe disability ) on 04/15/16; updated [place] Back Pain Scale:44 on 04/15/16; updated [place]: 7 on 04/15/1616Initial Oswestry Disability Index: 48% ( severe disability ) on 11/24/14; initial [place] Back Pain Scale: 48 on 11/24/14; initial [place]: 5 on 11/24/1516egd . Bilateral common femoral artery endarterectomy. 3. Left common femoral artery patch angioplasty with PTFE. 4. 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 CURRENT THERAPY: Tamoxifen started in 11/17/14, prior anastrozole 11/2012- 09/2014, zoledronic acid, received 02/2015 and 08/2015.63ibejw33Keqisuuiunvyyn Summary Successful drug eluting stenting of the proximal LAD coronary artery with a 3.5X15 mm plus 3.0X8 mm Xience Alpine stents as described above. The second stent was needed to cover distal edge of th efirst stent in an overlapping fashion. 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
--- OUTSIDE RECORDS SUMMARY | 2022-06-11 12:41 | XMS_ITS | Continuity of Care Document ---
:1945 Author Organization [facility] Address [address] [place] [address]- Care Team Providers Name Role Phone Christina BAZAN, Chino Dao Primary Care Physician Encounter [facility] Date(s): 09/29/20 - 10/29/20 [facility] [address] [place] [id number]- Allergies, Adverse Reactions, Alerts Substance Reaction Severity Status spironolactone1 Active lisinopril2 Active atorvastatin3 Active amLODIPine4 Active 5opluf2jvmvrla vsefrbtm9bzch8qdsjs Immunizations Given and Recorded Vaccine Date Status [...] Given P atient Refuses 1Result Comment: [05/27/2017] [facility] [id number]/Late Reason: Wan to Standard Admin [id number] Note: #24Admin Note: historical data Medications Aspirin [...] 10/26/20 14:56:00 EDT, Route to Pharmacy Electronically, [facility] # 50, Partial fill upon patient request if the prescription is for a schedule II opioid feliberto... Start Date: 10/26/20 Status: OrderedFlovent HFA 110 mcg/inh inhalation aerosol 2 puffs, Inhalation, 2 times a day, # 1 each, 5 Refills, Maintenance, 08/22/20 18:56:00 EST, Aerosol, [facility] # 50, 149.9, cm, 06/07/20 11:48:00 EST, Height, 68.9, kg, 07/12/19 14:56:00 EST, DryWeight Start Date: 08/22/20 Status: OrderedFLUoxetine 40 mg oral capsule 1 capsule = 40 mg, By Mouth, Daily, # 30 capsule, 5 Refills, Maintenance, 08/13/20 10:39:00 EST, Capsule, [facility] # 50, 149.9, cm, 06/07/20 [...] tablet, 0 Refills, Maintenance, 10/03/20 7:38:00 EST,Tablet, [facility] # 50, partial fill upon request, 10/10/20, 149.9, cm, 08/28/20 14:48:00 EST, Height, 68.9, kg, 07/12/19 14:56:00 EST, Dry Weight Start Date: 10/03/20 Stop Date: 10/31/20 Status: Orderedlevothyroxine 125 mcg (0.125 mg) oral tablet 1 tablet = 125 mcg, By Mouth, Daily, # 30 tablet, 5 Refills, Maintenance, 10/10/20 7:25:00 EDT, Tablet, [facility] # 50, 149.9, cm, 08/28/20 14:48:00 EST, Height, 68.9, kg, 07/12/19 14:56:00 EST, Dry Weight Start Date: 10/10/20 Status: Orderedmetoprolol 25 mg oral tablet 25 mg, 1, tablet, By Mouth, 2 times a day, # 60 tablet, Refills 2, Tot. Refills 2, Maintenance, 08/13/20 10:39:00 EST, Route to Pharmacy Electronically, [facility] # 50, 149.9, cm, 06/07/20 11:48:00 EST, Height, 68.9, kg, 07/12/19 14:56:00 EST, DrClementina.. Start Date: 08/13/20 Status: OrderedPriLOSEC OTC 20 mg oral delayed release tablet 1 tablet = 20 mg, By Mouth, Daily, # 90 tablet, 0 Refills, Maintenance, 08/07/20 11:06:00 EST, CR Tablet, [facility] # 50, 149.9, cm, 06/07/20 11:48:00 EST, Height, 68.9, kg, 07/12/19 14:56:00 EST,Dry Weight Start Date: 08/07/20 Status: Orderedrosuvastatin 10 mg oral capsule 1 capsule = 10 mg, By Mouth, Daily, # 30 capsule, 11 Refills, Maintenance, 08/29/20 15:01:00 EST, Capsule, [facility] # 50, Partial fill upon patient request if the prescription is for a schedule II opioid drug., 149.9, cm, 08/28/20 14:48:00 EST,... 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 huvjwly6vdawbs repeat sdx; injections,fentanyl,morphine,oxycodone er8Dr Oh no surgery re neck,sjrf7ulu Dr King,yesterday NO SURGERY, rx corsett,pool10 evaluated by two neurosurgeons,pain yhampmwi12bxvhm eb42Vfcafd 24-hour urine rfsfztub41LINA increased alpha2 pljmmbhuv67owroxf iron,ferrritin,cderloplasmin; neg HEP a,B,P23ngbjuti Oswestry Disability Index: 48% ( severe disability ) on 04/15/16; updated [place] Back Pain Scale:44 on 04/15/16; updated [place]: 7 on 04/15/1616Initial [place]estry Disability Index: 48% ( severe disability ) on 11/24/14; initial [place] Back Pain Scale: 48 on 11/24/14; initial [place]: 5 on 11/24/1516egd . Bilateral common femoral artery endarterectomy. 3. Left common femoral artery patch angioplasty with PTFE. 4. 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 CURRENT THERAPY: Tamoxifen started in 11/17/14, prior anastrozole 11/2012- 09/2014, zoledronic acid, received 02/2015 and 08/2015.54bgjun76Gaomuaffeokxfq Summary Successful drug eluting stenting of the proximal LAD coronary artery with a 3.5X15 mm plus 3.0X8 mm Xience Alpine stents as described above. The second stent was needed to cover distal edge of th efirst stent in an overlapping fashion. 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
--- OUTSIDE RECORDS SUMMARY | 2022-06-11 12:42 | XMS_ITS | Continuity of Care Document ---
:1945 Author Organization [facility] Address [address] [place] [address]- Care Team Providers Name Role Phone Chino Vasquez MD Primary Care Physician Encounter [facility] [place] Date(s): 03/29/21 - 04/05/21 [facility] [address] [place] [address]- Encounter Diagnosis Benign Essential Hypertension (Discharge Diagnosis) - 03/29/21 Attending Physician: Chino Vasquez MD Allergies, Adverse Reactions, Alerts Substance Reaction Severity Status spironolactone1 Active lisinopril2 Active atorvastatin3 Active amLODIPine4 Active 5kbuth3sxmtdnr xyrtlbus2mmpq6kitfx Immunizations Given and Recorded Vaccine Date Status [...] P atient Refuses 1Result Comment: [05/27/2017] [facility] [id number]/Late Reason: Wan to Standard Admin [id number] Note: #24Admin Note: historical data Medications aspirin [...] Orderedcarvedilol 25 mg oral tablet See Instructions, 1/2 am 1 after dinner, # 45 each, Refills 1, Tot. Refills 1, Maintenance, 04/03/2113:25:00 EDT, Instructions Replace Required Details, Route to Pharmacy Electronically, [facility] # [facility], Partial fill upon patient request if the... Start Date: 04/03/21 Status: Orderedchlorthalidone 25 mg oral tablet See Instructions, TAKE ONE TABLET BY MOUTH EVERY DAY, # 30 tablet, Refills 5, Tot. Refills 5, Maintenance, 02/20/21 1:48:00 EDT, Instructions Replace Required Details, Route to Pharmacy Electronically,[facility] # [facility], 149, cm, 02/09/21 10:03:00 E... Start Date: 02/20/21 Status: Ordereddocusate sodium 100 mg oral capsule 100 mg, 1, capsule, By Mouth, Daily, PRN, Maintenance, as needed for constipation, 12/21/20 16:05:00EDT, ; Start Date: 12/21/20 Status: Ordereddoxycycline hyclate 100 mg oral capsule 2 capsule = 200 mg, By Mouth, Once, # 2 capsule, 0 Refills, Soft Stop, 03/27/21 10:17:00 EDT, [facility] # 50, Partial fill upon patient request if the prescription is for a schedule II opioid drug., 149, cm, 03/27/21 10:16:00 EDT, Height, 68.9, k... Start Date: 03/27/21 Status: OrderedFlovent HFA 110 mcg/inh inhalation aerosol See Instructions, INHALE 2 PUFFS TWO TIMES A DAY, # 12 Gm, 5 Refills, Maintenance, [facility] # 50, 149, cm, 02/09/21 10:03:00 EDT, Height, 68.9, kg, 12/21/20 8:52:00 EDT, Dry Weight Start Date: 02/09/21 Status: OrderedFLUoxetine 40 mg oral capsule See Instructions, TAKE 1 CAPSULE BY MOUTH DAILY., # 30 capsule, 5 Refills, Maintenance, [facility] # 50, 149, cm, 02/09/21 10:03:00 EDT, Height, 68.9, kg, 12/21/20 8:52:00 EDT, Dry Weight Start Date: 02/12/21 Status: Orderedhydrocortisone 2.5% topical cream 1 application, Topically, 3 times a day, # 30 Gm, 1 Refills, Maintenance, 01/09/21 12:15:00 EDT, Cream, [facility] # 50, 1 application Topically 3 times a day, 149.9, cm, 01/09/21 12:01:00 EDT, Height, 68.9, kg, 12/21/20 8:52:00 EDT, Dry Weight Start Date: 01/09/21 Status: OrderedHYDROmorphone 4 mg oral tablet 1 tablet = 4 mg, By Mouth, Every 8 hours, # 84 tablet, 0 Refills, Maintenance, 03/27/21 7:54:00 EDT,Tablet, [facility] # 50, partial fill upon [...] 5 Refills, Maintenance, 10/10/20 7:25:00 EDT, Tablet, [facility] # 50, 149.9, cm, 08/28/20 14:48:00 EST, Height, 68.9, kg, 07/12/19 14:56:00 EST, Dry Weight Start Date: 10/10/20 Status: OrderedoxyCODONE 5 mg oral tablet 5 mg, 1, tablet, By Mouth, Every 6 hours, PRN, # 5 tablet, Refills 0, Tot. Refills 0, Maintenance, Pain , Severe, 12/27/20 9:18:00 EDT, Route to Pharmacy Electronically, [facility], Partial fill upon patient request if [...] 01/22/21 11:44:00 EDT, Route to Pharmacy Electronically, [facility] # 50, 149, cm, 01/18/21 11:04:00 EDT, Height, 68.9, kg, 12/21/20 8:52:00 EDT, Dry Weight Start Date: 01/22/21 Status: Orderedrosuvastatin 10 mg oral capsule 1 capsule = 10 mg, By Mouth, Daily, # 30 capsule, 11 Refills, Maintenance, 08/29/20 15:01:00 EST, Capsule, [facility] # 50, Partial fill upon patient request if the prescription is for a schedule II opioid drug., 149.9, cm, 08/28/20 14:48:00 EST,... Start Date: 08/29/20 Status: OrderedTylenol 325 mg oral tablet 650 mg, 2, tablet, By Mouth, Every 4 hours, PRN, # 24 tablet, Refills 0, Tot. Refills 0, Maintenance, Pain , Mild, 12/27/20 9:18:00 EDT, Route to Pharmacy Electronically, [facility], Partial fill upon patient request if the prescription... Start Date: 12/27/20 Status: OrderedVentolin HFA 108 mcg/inh inhalation aerosol with adapter See Instructions, INHALE 2 PUFFS FOUR TIMES A DAY NEEDED FOR WHEEZING, # 18 Gm, 2 Refills, Maintenance, [facility] # 50, 149, cm, 02/09/21 [...] breast cancer Left, IDC, Active pT1c pN0, ER/KS positive, Her-2/angelito negative, 2012(Confirmed)22, 23 History of [...] Active use(Confirmed) Vitamin D Deficiency(Confirmed) Active 1per gastroenterology;aaxfwvs9Aodounds to gastroenterology no-show for qiefyovypmc6fyv3 40%4chronic sithndmxuc3MRTI:2 low bgyao8NVOX test done,[employer] qkmhqgw9xwfrjn repeat sdx; injections,fentanyl,morphine,oxycodone er8Dr Oh no surgery re neck,vpae1zfv Dr King,yesterday NO SURGERY, rx corsett,pool10 evaluated by two neurosurgeons,pain srptxygb81kfabo zm12Xcsvcb 24-hour urine yhqomebe59ITXO increased alpha2 vwijwyfpo65qgkhdg iron,ferrritin,cderloplasmin; neg HEP a,B,W18ispmayc Oswestry Disability Index: 48% ( severe disability ) on 04/15/16; updated [place] Back Pain Scale:44 on 04/15/16; updated [place]: 7 on 04/15/1616Initial Oswestry Disability Index: 48% ( severe disability ) on 11/24/14; initial [place] Back Pain Scale: 48 on 11/24/14; initial [place]: 5 on 11/24/1516egd . Bilateral common femoral artery endarterectomy. 3. Left common femoral artery patch angioplasty with PTFE. 4. 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 CURRENT THERAPY: Tamoxifen started in 11/17/14, prior anastrozole 11/2012- 09/2014, zoledronic acid, received 02/2015 and 08/2015.40fxxdg23Xrkjbxuwhnglid Summary Successful drug eluting stenting of the proximal LAD coronary artery with a 3.5X15 mm plus 3.0X8 mm Xience Alpine stents as described above. The second stent was needed to cover distal edge of th efirst stent in an overlapping fashion. 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
--- OUTSIDE RECORDS SUMMARY | 2022-06-11 12:42 | XMS_ITS | Continuity of Care Document ---
:1945 Author Organization [facility] Address [address] [place] [address]- Care Team Providers Name Role Phone Chino Vasquez MD Primary Care Physician Encounter [facility] [place] Date(s): 02/21/22 - 02/28/22 [facility] [address] [place] [address]- Encounter Diagnosis Benign Essential Hypertension (Discharge Diagnosis) - 02/21/22 Attending Physician: Solange Starr NP Referring Physician: Chino Vasquez MD Allergies, Adverse Reactions, Alerts Substance Reaction Severity Status spironolactone1 Active lisinopril2 Active amLODIPine3 Active atorvastatin4 Active thiazide diuretics5 Active 9xwqbp4qgxsewe mzuzucnl6lbvel8proi2fszunpjvwdaq Immunizations Given and Recorded Vaccine Date Status Refusal Reason tetanus-diphtheria toxoids (Td)1 11/14/21 Given tetanus-diphtheria toxoids (Td) 12/01/06 Given SARS-CoV-2 (COVID-19) mRNA BNT-162b2 vac 07/05/21 Recorde d SARS-CoV-2 (COVID-19) mRNA BNT-162b2 vac 09/27/20 Recorde d SARS-CoV-2 (COVID-19) mRNA BNT-162b2 vac 09/19/20 Given SARS-CoV-2 (COVID-19) mRNA BNT-162b2 vac 09/19/20 Recorde d SARS-CoV-2 (COVID-19) mRNA BNT-162b2 vac 08/29/20 Recorde d pneumococcal 23-valent vaccine2 06/19/21 Given influenza virus [...] Given P atient Refuses 1Result Comment: [facility]: [phone] Comment: [facility]: [id number] Comment: [facility]: [id number] Comment: [05/27/2017] [facility] [phone] Early/Late Reason: Wan to Standard Admin [id number] Note: #27Admin Note: historical data Medications aspirin [...] 180 tablet, Refills 0, Tot. Refills 0, 01/14/22 21:32:00 EDT, Route to Pharmacy Electronically, [facility] # [facility], 149, cm, 01/09/22 13:12:00 EDT, Height, 68.5, kg, 11/19/21 15:42:00 EDT, Dry Weight Start Date: 01/14/22 Status: Ordereddocusate sodium 100 mg oral capsule 100 mg, 1, capsule, By Mouth, Daily, PRN, Maintenance, as needed for constipation, 12/21/20 16:05:00EDT, ; Start Date: 12/21/20 Status: Orderedezetimibe 10 mg oral tablet See Instructions, TAKE ONE TABLET BY MOUTH EVERY DAY, # 30 tablet, 5 Refills, 11/12/21 9:33:00 EDT, [facility] # 50, 149, cm, 10/18/21 12:13:00 EDT, Height, 68.9, kg, 12/21/20 8:52:00 EDT, Dry Weight Start Date: 11/12/21 Status: OrderedFLUoxetine 40 mg oral capsule 1 capsule, By Mouth, Daily, # 30 capsule, 5 Refills, [facility] # 50, 149, cm, 02/06/22 9:42:00 EDT, Height, 68.5, kg, 11/19/21 15:42:00 EDT, Dry Weight Start Date: 02/11/22 Status: Orderedfurosemide 20 mg oral tablet 20 mg, 1, tablet, By Mouth, Daily, # 90 tablet, Refills 0, Tot. Refills 0, Maintenance, 02/21/22 12:19:00 EDT, Route to Pharmacy Electronically, [facility] # [facility], 149, cm, 02/21/22 11:30:00 EDT, Height, 74.4, kg, 02/12/22 14:46:00 EDT, Dry Weight Start Date: 02/21/22 Status: Orderedhydrocortisone 2.5% topical cream 1 application, Topically, 3 times a day, # 30 Gm, 1 Refills, Maintenance, 01/09/21 12:15:00 EDT, Cream, [facility] # 50, 1 application Topically 3 times a day, 149.9, cm, 01/09/21 12:01:00 EDT, Height, 68.9, kg, 12/21/20 8:52:00 EDT, Dry Weight Start Date: 01/09/21 Status: OrderedHYDROmorphone 4 mg oral tablet 1 tablet = 4 mg, By Mouth, Every 8 hours, # 84 tablet, 0 Refills, Maintenance, 02/26/22 12:07:00 EDT, Tablet, [facility] # 50, partial fill upon request, 03/04/22, 149, cm, 02/21/22 11:30:00 EDT, Height, 74.4, kg, 02/12/22 14:46:00 EDT, Dry Weight Start Date: 02/26/22 Stop Date: 03/26/22 Status: OrderedImodium A-D 2 mg, By Mouth, Refills 0, Maintenance, 01/09/21 15:24:00 EDT, Partial fill upon patient request if the prescription is for a schedule II opioid drug. Start Date: 01/09/21 Status: Orderedlevothyroxine 125 mcg (0.125 mg) oral tablet See Instructions, TAKE ONE TABLET BY MOUTH EVERY DAY, # 30 tablet, 5 Refills, 10/11/21 14:05:00 EDT,[facility], 149, cm, 08/15/21 11:10:00 EST, Height, 68.9, kg, 12/21/20 8:52:00 EDT, Dry Weight Start Date: 10/11/21 Status: Orderedpantoprazole 20 mg oral delayed release tablet 1 tablet, By Mouth, Daily, # 90 tablet, 0 Refills, 01/14/22 21:32:00 EDT, 149, cm, 01/09/22 13:12:00EDT, Height, 68.5, kg, 11/19/21 15:42:00 EDT, Dry Weight Start Date: 01/14/22 Status: Orderedrosuvastatin 10 mg oral capsule 1 capsule = 10 mg, By Mouth, Daily, # 30 capsule, 11 Refills, Maintenance, 08/15/21 13:23:00 EST, Capsule, [facility] # [facility], Partial fill [...] 12/27/20 9:18:00 EDT, Route to Pharmacy Electronically, [facility], Partial fill upon patient request if the prescription... Start Date: 12/27/20 Status: OrderedVentolin HFA 108 mcg/inh inhalation aerosol with adapter See Instructions, INHALE 2 PUFFS FOUR TIMES A DAY NEEDED FOR WHEEZING, # 18 Gm, 5 Refills, [facility] # [facility], 149, cm, 11/19/21 14:57:00 EDT, Height, 68.5, kg, 11/19/21 15:42:00 EDT, Dry Weight Start Date: 12/06/21 Status: OrderedVitamin B12 1000 mcg oral tablet [...] reflux EGD Active 2011(Confirmed)17 Graves' disease(Confirmed) Active H/O fracture of wrist rt(Confirmed) 12/03/21 Active History of peripheral artery 05/17/16 Active bypass(Confirmed)18 H/O compression fracture of sacrum Active 2014 anastranole(Confirmed)19 History of alcohol abuse(Confirmed)20, Active 21 H/O nausea(Confirmed) Active History of ischemic colitis(Confirmed) 12/21/20 Active History of breast cancer Left, IDC, Active pT1c pN0, ER/AL positive, Her-2/angelito negative, 2012(Confirmed)22, 23 History of [...] 10/18/21 Active Vitamin D Deficiency(Confirmed) Active 1per gastroenterology;arilfpb9Ckqgfolk to gastroenterology no-show for tyggalhfkzx3wyk2 40%4chronic hvlzzsakdv4UEHP:2 low eurrt5JGTV test done,[employer] scjezma4vssyuv repeat sdx; injections,fentanyl,morphine,oxycodone er8Dr Oh no surgery re neck,isuo8pta Dr King,yesterday NO SURGERY, rx corsett,pool10 evaluated by two neurosurgeons,pain iwzcfvfq35hixsx wv28Cafuoa 24-hour urine rasvlwqn06LICR increased alpha2 opvdyycyv23hsuupp iron,ferrritin,cderloplasmin; neg HEP a,B,G32dqjanmn Oswestry Disability Index: 48% ( severe disability ) on 04/15/16; updated [place] Back Pain Scale:44 on 04/15/16; updated [place]: 7 on 04/15/1616Initial Oswestry Disability Index: 48% ( severe disability ) on 11/24/14; initial [place] Back Pain Scale: 48 on 11/24/14; initial [place]: 5 on 7egd . Bilateral common femoral artery endarterectomy. 3. Left common femoral artery patch angioplasty with PTFE. 4. 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 CURRENT THERAPY: Tamoxifen started in 11/17/14, prior anastrozole 11/2012- 09/2014, zoledronic acid, received 02/2015 and 08/2015.46nshcf47Kiviulygxybhvk Summary Successful drug eluting stenting of the proximal LAD coronary artery with a 3.5X15 mm plus 3.0X8 mm Xience Alpine stents as described above. The second stent was needed to cover distal edge of th efirst stent in an overlapping fashion. The stents were post-dilated using a 3.5 mm non-compliant balloon.25 now hyperthyroid,exopthalmous;Dr MurphyZdbeta75vwexjfu pre diabetes increased risk yphxqutx33lmkjgr57yt stable;recheck 12 rnyrpe69osgeh lung nodules on neck CT recheck 6 okjwrb50TJB9e med24QVo4 four low dsygm47iian normal,b12 low fit terst rnq76tsxitho D deficiency;correcting Diagnosis Diagnosis Type Effective Dates Health Clinical Infor mant Status Service Benign Essential Discharge 02/21/22 Hypertension Diagnosis Vital Signs Most recent to oldest [Reference Range]: 1 Height 149.0 cm (02/21/22 11:30 AM) Weight 73.9 kg (02/21/22 11:30 AM) Oxygen Saturation [94-100 %] 98 % (02/21/22 11:30 AM) Pulse Rate [55-90 bpm] 69 bpm (02/21/22 11:30 AM) Body Mass Index [18.5-24.99] 33.29 *>HHI* (02/21/22 11:30 AM) Blood Pressure [90-138/55-84 mm Hg] 123/74 mm Hg (02/21/22 11:30 AM) Blood pressure sites Arm, left (02/21/22 11:30 AM) Weight Obtained Via Standing scale (02/21/22 11:30 AM) Social History Social History Type Response 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
--- OUTSIDE RECORDS SUMMARY | 2022-06-11 12:42 | XMS_ITS | Continuity of Care Document ---
:1945 Author Organization [facility] Adult Address [address] [place] [address]- Care Team Providers Name Role Phone Chino Vasquez MD Primary Care Physician [place] [facility] [place]22 - 06/04/22 [facility] [address] [place] [address]- Encounter Diagnosis COPD exacerbation (Discharge Diagnosis) - 05/28/22 Chronic Pain Syndrome (Discharge Diagnosis) - 05/28/22 Chronic prescription opiate use (Discharge Diagnosis) - 05/28/22 Major depression in full remission (Discharge Diagnosis) - 05/28/22 Failed back syndrome, lumbar (Discharge Diagnosis) - 05/28/22 Hypothyroidism following radioiodine therapy (Discharge Diagnosis) - 05/28/22 Attending Physician: Chino Vasquez MD Allergies, Adverse Reactions, Alerts Substance Reaction Severity Status spironolactone1 Active lisinopril2 Active atorvastatin3 Active thiazide diuretics4 Active amLODIPine5 Active 4qparf8ymcolks hyoeeyrm5zehp2vnwfszcfihaw2igusy Immunizations Given and Recorded Vaccine Date Status [...] 1Result Comment: [facility]: [id number] Comment: [05/27/2017] [facility] [id number] 3Early/Late Reason: Wan to Standard Admin Noggx7Enqwdt Comment: [facility]: [id number] Comment: [facility]: [id number] Note: #27Admin Note: historical data Medications aspirin 81 mg oral delayed release tablet 81 mg, 1, tablet, By Mouth, Daily, Maintenance, 12/21/20 16:02:00 EDT, ; Start Date: 12/21/20 Status: Orderedbudesonide/formoterol/glycopyrrolate 160 mcg-4.8 mcg-9 mcg/inh inhalation aerosol 2 puffs, Inhalation, Every 12 hours, rinse mouth and throat after use, # 1 each, 11 Refills, Maintenance, 10/16/21 15:12:00 EDT, Aerosol, [facility], [...] Details, Route to Pharmacy Electronically, [facility], 149, cm, 04/25/22 10:28:00 EDT, Height, 7... Start Date: 05/12/22 Status: Ordereddocusate sodium 100 mg oral capsule 100 mg, 1, capsule, By Mouth, Daily, PRN, Maintenance, as needed for constipation, 12/21/20 16:05:00EDT, ; Start Date: 12/21/20 Status: Orderedezetimibe 10 mg oral tablet See Instructions, TAKE 1 TABLET BY MOUTH DAILY., # 30 tablet, 5 Refills, Maintenance, 06/03/22 15:48:00 EST, [facility], 149, cm, 05/28/22 10:25:00 EDT, Height, 74.4, kg, 02/12/22 14:46:00 EDT, Dry Weight Start Date: 06/03/22 Status: OrderedFLUoxetine 40 mg oral capsule 1 capsule, By Mouth, Daily, # 30 capsule, 5 Refills, [facility], 149, cm, 02/06/22 9:42:00 EDT, Height, 68.5, kg, 11/19/21 15:42:00 EDT, Dry Weight Start Date: 02/11/22 Status: Orderedfurosemide 20 mg oral tablet 20 mg, 1, tablet, By Mouth, Daily, # 90 tablet, Refills 0, Tot. Refills 0, Maintenance, 02/21/22 12:19:00 EDT, Route to Pharmacy Electronically, [facility], 149, cm, 02/21/22 [...] Maintenance, 05/20/22 11:57:00 EDT, Tablet, [facility] [...] Refills, Maintenance, 04/08/22 12:28:00 EDT, [facility], 149, cm, 03/21/22 8:09:00 EDT, Height, 74.4, kg, 02/12/22 14:46:00EDT, Dry Weight Start Date: 04/08/22 Status: Orderedpantoprazole 20 mg oral delayed release tablet See Instructions, TAKE 1 TABLET BY MOUTH DAILY., # 90 tablet, 1 Refills, Maintenance, 05/12/22 18:19:00 EDT, 149, cm, 04/25/22 10:28:00 EDT, Height, 74.4, kg, 02/12/22 14:46:00 EDT, Dry Weight Start Date: 05/12/22 Status: OrderedpredniSONE 10 mg oral tablet See Instructions, WITH FOOD MORNING nOV 8.9; FOUTR may 10;THREE may 11;TWO nOV 12; ONE, # 14 each, 0Refills, Maintenance, 06/04/22 8:16:00 EST, [facility], Partial fill upon patient request if the prescription is for a schedule II opioid... Start Date: 06/04/22 Status: OrderedpredniSONE 20 mg oral tablet 1 tablet = 20 mg, By Mouth, 2 times a day, with food or milk, # 14 tablet, 0 Refills, Maintenance, 05/28/22 10:28:00 EDT, Tablet, [facility], Partial fill upon patient request if the prescription is for a schedule II opioid drug., 149, cm, 11... Start Date: 05/28/22 Status: Orderedrosuvastatin 10 mg oral capsule 1 capsule = 10 mg, By Mouth, Daily, # 30 capsule, 11 Refills, Maintenance, 08/15/21 13:23:00 EST, Capsule, [facility], Partial fill upon patient request if the prescription is for a schedule II opioid drug., 149, cm, 08/15/21 11:10:00 EST, He... Start Date: 08/15/21 Status: OrderedTylenol 325 mg oral tablet 650 mg, 2, tablet, By Mouth, Every 4 hours, PRN, # 24 tablet, Refills 0, Tot. Refills 0, Maintenance, Pain , Mild, 12/27/20 9:18:00 EDT, Route to Pharmacy Electronically, [facility], Partial fill upon patient request if the prescription... Start Date: 12/27/20 Status: OrderedVentolin HFA 108 mcg/inh inhalation aerosol with adapter See Instructions, INHALE 2 PUFFS FOUR TIMES A DAY NEEDED FOR WHEEZING, # 18 Gm, 5 Refills, Maintenance, 05/24/22 11:12:00 EDT, [facility], 149, cm, 05/21/22 9:17:00 [...] Active Essential familial Confirmed Active hyperlipidemia Ex-smoker, 1/2 ppd Confirmed Active X23 years, quit 1997 Excessive weight Confirmed Active gain12 Fatty liver13, 14 Confirmed Active Limitation due to Confirmed Active pcfrmdoqwy43, 16 Opiate use Confirmed Active Gastro-esophageal Confirmed Active reflux EGD [id number] Graves' disease Confirmed Active H/O fracture of wrist Confirmed 12/03/21 Active rt History of peripheral Confirmed 05/17/16 Active artery iayfvz74 H/O compression Confirmed Active fracture of sacrum 2014 nwgtzbdnygo41 History of alcohol Confirmed Active abuse20, 21 H/O nausea Confirmed Active History of ischemic Confirmed 12/21/20 Active colitis History of breast Confirmed Active cancer Left, IDC, pT1c pN0, ER/GA positive, Her-2/angelito negative, [id number], 23 History of (NSTEMI) Confirmed 11/10/15 Active 2015 DES S/P drug eluting Confirmed Active coronary stent placement Hyperkalemia Confirmed 03/08/19 Active Hyponatremia Confirmed Active Hypothyroidism Confirmed Active following radioiodine Impaired Fasting Confirmed 06/03/07 Active Vxkzxwl97 Anemia, iron Confirmed Active deficiency neg colo 2018.neg egd 2020 per gi (greef) no addtl workuyp Low back pain Confirmed Active Failed back syndrome, Confirmed Active lumbar Lung nodules remote Confirmed Active lyqxxv06, 28, 29 Lymphedema of both Confirmed Active lower extremities Depression, major30, Confirmed Active 31 Fx metatarsal rt Confirmed 04/27/19 Active second Nocturia Confirmed 10/18/21 Active Normocytic Confirmed Active normochromic pvsdar99, 33 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 Fbejqeznie38 Confirmed Active PAD (peripheral Confirmed Active artery disease)stenting 2015 Chronic prescription Confirmed Active opiate use Multiple falls REFER Confirmed 10/18/21 Active PT Sep 2021 Frequent PVCs brefer Confirmed 10/18/21 Active holter Vitamin D Deficiency Confirmed Active 1per gastroenterology;zbxfhtb8Fvfviogp to gastroenterology no-show for yndbtkexrcq9sfv9 40%4chronic kbmvmlzutw7LLQF:2 low jxzgs6KIKR test done,[employer] butrgnz2upgjip repeat sdx; injections,fentanyl,morphine,oxycodone er8Dr Oh no surgery re neck,tuxo4txy Dr King,yesterday NO SURGERY, rx corsett,pool10 evaluated by two neurosurgeons,pain ybwfnzoz97oxyus in18Zalcvf 24-hour urine tyblrupt97JWKT increased alpha2 abnycvktw73gueafd iron,ferrritin,cderloplasmin; neg HEP a,B,V23hjdirvy Oswestry Disability Index: 48% ( severe disability ) on 04/15/16; updated [place] Back Pain Scale:44 on 04/15/16; updated Holt: 7 on 04/15/1616Initial Oswestry Disability Index: 48% ( severe disability ) on 11/24/14; initial [place] Back Pain Scale: 48 on 11/24/14; initial Holt: 5 on 11/24/1516egd . Bilateral common femoral artery endarterectomy. 3. Left common femoral artery patch angioplasty with PTFE. 4. 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 CURRENT THERAPY: Tamoxifen started in 11/17/14, prior anastrozole 11/2012- 09/2014, zoledronic acid, received 02/2015 and 08/2015.37tmldb58Lremqxncxsqakg Summary Successful drug eluting stenting of the proximal LAD coronary artery with a 3.5X15 mm plus 3.0X8 mm Xience Alpine stents as described above. The second stent was needed to cover distal edge of th efirst stent in an overlapping fashion. The stents were post-dilated using a 3.5 mm non-compliant balloon.25 now hyperthyroid,exopthalmous;Dr MurphyLbgqcb79vgkfpiz pre diabetes increased risk wvpsvoil16zebjqx82zk stable;recheck 12 fznpno73nszee lung nodules on neck CT recheck 6 tijdwj52ZGS3z ngm06EHm5 four low spcgk00jkzr normal,b12 low xeklsf90 fit terst yeo39ekfxscp D deficiency;correcting Diagnosis Diagnosis Type Effective Dates Health Clinical Infor mant Status Service COPD exacerbation Discharge 05/28/22 Diagnosis Chronic Pain Discharge 05/28/22 Syndrome Diagnosis Chronic prescription Discharge 05/28/22 opiate use Diagnosis Major depression in Discharge 05/28/22 full remission Diagnosis Failed back Discharge 05/28/22 syndrome, lumbar Diagnosis Hypothyroidism Discharge 05/28/22 following Diagnosis radioiodine therapy Vital Signs Most recent to oldest [Reference Range]: 1 2 Height 149.0 cm 149.0 cm (05/28/22 10:25 AM) (05/28/22 10:10 AM) Weight 76.7 kg (05/28/22 10:10 AM) Oxygen Saturation [94-100 %] 97 % (05/28/22 10:10 AM) Pulse Rate [55-90 bpm] 66 bpm (05/28/22 10:10 AM) Body Mass Index [18.5-24.99 kg/m2] 34.55 kg/m2 *>HHI* (05/28/22 10:10 AM) Blood Pressure [90-138/55-84 mm Hg] 108/82 mm Hg 140/ 83 mm Hg (05/28/22 10:25 AM) *H* (05/28/22 10:10 AM) Respiratory Rate [16-30 br/min] 16 br/min (05/28/22 10:10 AM) Temperature [96.8-100.4 DegF] 98.5 DegF (05/28/22 10:10 AM) Mode of Delivery (Oxygen) Room air (05/28/22 10:10 AM) Blood pressure sites Arm, left Arm, left (05/28/22 10:25 AM) (05/28/22 10:10 AM) Temperature Route Oral (05/28/22 10:10 AM) Weight Obtained Via Standing scale (05/28/22 10:10 AM) Social History Social History Type Response 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 Note Allegra Watkins: PERFORM, SIGN, VERIFY Event Display: Patient Education/Instruction Authored Date: [id number] [facility] *BMP So Missael Gonzalez Clinical Summary Name ABRAM SHIRLEY Age 76 Years 1945 PCP Chino Vasquez MD PCP Visit Date 05/28/2022 09:52:00 Patient Instructions COPD prednisone 20mg one breakfast one dinner update me FRIDAY AM medications otherwise same see Solange physical Additional Instructions: Scheduled Appointments?? Future Appointments ?*[facility] ?[address]??[place],??[place],??[address] ?Phone:??--?Fax:??-- ?Appt. Date:??07/24/2022?2:00 PM ?Scheduled Provider:??Anita BAZAN, Bryan Aguero ?[facility] ?[address]??[place],??[place],??[address] ?Phone:??[phone]?Fax:??-- ?Appt. Date:??02/13/2023?2:00 PM ?Scheduled Provider:??[facility] 3D Mammo Rm 4 Follow-Up Instructions ?? With: Address: When: Matty COUGHLIN, Solange Briceño In 2 months Comments: MWV 2months Diagnosis Chronic obstructive pulmonary disease with (acute) exacerbation Medications: Please continue your medications until treatment is completed or stopped by your provider. Discuss any questions related to medications with your provider. New Medications [facility], [address] [place], [place] [id number], [phone] PredniSONE (predniSONE 20 mg oral tablet) 1 tab(s) Oral twice a day. with food or milk. Refills: 0. Next Dose: Medications to Continue with No Changes [facility], [address] [place], [place] [id number], [phone] Levothyroxine (levothyroxine 125 mcg (0.125 mg) oral tablet) TAKE ONE TABLET BY MOUTH EVERY DAY. Refills: 5. Next Dose: These medications were not printed or sent to your pharmacy Acetaminophen (Tylenol 325 mg oral tablet) 2 tab(s) Oral every 4 hours as needed Pain , Mild. Refills: 0. Next Dose: Albuterol (Ventolin HFA 108 mcg/inh inhalation aerosol with adapter) INHALE 2 PUFFS FOUR TIMES A DAYAS NEEDED FOR WHEEZING. Refills: 5. Next Dose: Aspirin (aspirin 81 mg oral delayed release tablet) 1 tab(s) Oral Daily. Next Dose: budesonide/formoterol/glycopyrrolate (budesonide/formoterol/glycopyrrolate 160 mcg-4.8 mcg-9 mcg/inhinhalation aerosol) 2 puff(s) Inhalation every 12 hours. rinse mouth and throat after use. Refills: 11. Next Dose: Calcium Carbonate (calcium (as carbonate) 500 mg oral tablet, chewable) 1 tab(s) Chew Daily. Next Dose: Carvedilol (carvedilol 25 mg oral tablet) TAKE 1 TABLET BY MOUTH TWICE A DAY.. Refills: 1. Next Dose: Cholecalciferol (Vitamin D3 1000 intl units oral tablet) 1 tab(s) Oral Daily. Next Dose: Cyanocobalamin (Vitamin B12 1000 mcg oral tablet) 1 tablet By Mouth Daily. Refills: 11. Next Dose: Docusate (docusate sodium 100 mg oral capsule) 1 capsule Oral Daily as needed as needed for constipation. Next Dose: Ezetimibe (ezetimibe 10 mg oral tablet) TAKE ONE TABLET BY MOUTH EVERY DAY. Refills: 5. Next Dose: Fluoxetine (FLUoxetine 40 mg oral capsule) 1 capsule Oral Daily. Refills: 5. Next Dose: Furosemide (furosemide 20 mg oral tablet) 1 tab(s) Oral Daily. Refills: 0. Next Dose: Hydrocortisone Topical (hydrocortisone 2.5% topical cream) 1 lavonne Topically 3 times a day. Refills: 1. Next Dose: Hydromorphone (HYDROmorphone 4 mg oral tablet) 1 tab(s) Oral every 8 hours for 28 Days. Refills: 0. Next Dose: Loperamide (Imodium A-D) 2 Milligram Oral. Next Dose: Pantoprazole (pantoprazole 20 mg oral delayed release tablet) TAKE 1 TABLET BY MOUTH DAILY.. Refills: 1. Next Dose: Rosuvastatin (rosuvastatin 10 mg oral capsule) 1 capsule Oral Daily. Refills: 11. Next Dose: Allergy Info:?? amLODIPine; thiazide diuretics; atorvastatin; lisinopril; spironolactone Medications Given This Visit Future Orders ?No future orders Vital Signs Height 149.0 cm Weight 76.7 kg BMI 34.55 kg/m2 Blood Pressure 108 mm Hg/82 mm Hg Temperature 98.5 DegF Pulse Rate 66 bpm Respiratory Rate 16 br/min 02 Sat Mode of Delivery 97 %/Room air You can now view a summary of your hospital visit from the comfort of your home through a free online portal called [employer]. [employer] is a website that allows you to securely view yourmedical information including discharge summary, medications and follow-up visits. ??You can also send a secure electronic message to your doctor???s office to request appointments, renew medications or just ask a question. You can enroll at [email or web address] or register during your next office visit. Disclaimer:?? The information provided is of a general nature and is intended to be used in conjunction with the recommendations and advice of your health care practitioner. ??Every effort has been made to ensure that the information provided is accurate and complete at the time it is provided to you however, as your needs change, or, as new ??information becomes available, different or additional instructions may be required. If you have questions, please consult with your primary care provider or pharmacist, as appropriate.??This information is not intended to serve as substitution for assessment and evaluation by a qualified health care provider. If you do not have a primary care provider, you may find a [facility] provider by calling [facility] at [phone]. For information about the plan of care including goals and instructions for your diagnosis, please see the patient education orders section of this document. Patient Education Materials?? The content of this educational material or handout may have been modified, supplemented, or adaptedfrom its original content and format to support your individualized medical care. Patient Care team information Care Team PersonnelName: Solange Starr NP Position: [facility] PCO Associate Professional Member Role: [employer] Provider Address: Address: [address] [place] [address]- Name: Paula Ryan RN Position: [facility] RN Member Role: Primary Care Nurse Name: Loly Ashraf NP Position: [facility] Associate Professional Member Role: Primary Care Nurse Address: Address: [address] [place] [address] [place] [address]- Name: Joslyn Nelson RN Position: [facility] RN Member Role: Primary Care Nurse Name: Felisha Ventura RN Position: [facility] RN Member Role: Primary Care Nurse Name: Chino Vasquez MD Position: [facility] Primary Care Physician Member Role: PCP Address: Address: [address] [place] [address]- Name: Nader Alarcon RN Position: [facility] [place] RN Member Role: Primary Care Nurse Name: Laurel Cornejo RN Position: S RN Member Role: Primary Care Nurse Care Team Related PersonsName: MICKEY SHIRLEY Address: home [address] [place] [id number]
--- OUTSIDE RECORDS SUMMARY | 2022-06-11 12:42 | XMS_ITS | Continuity of Care Document ---
:1945 Author Organization [facility] Adult Address [address] [place] [address]- Care Team Providers Name Role Phone Chino Vasquez MD Primary Care Physician Encounter [facility] Date(s): 09/09/20 - 01/07/21 [facility] [address] [place] [address]- Attending Physician: Chino Vasquez MD Allergies, Adverse Reactions, Alerts Substance Reaction Severity Status spironolactone1 Active lisinopril2 Active atorvastatin3 Active amLODIPine4 Active 4aaasm1grhindo axnoafmm2zqdb5kaget Immunizations Given and Recorded Vaccine Date Status [...] Given P atient Refuses 1Result Comment: [05/27/2017] [facility] [id number]/Late Reason: Wan to Standard Admin [id number] Note: #24Admin Note: historical data Medications aspirin 81 mg oral delayed release tablet 81 mg, 1, tablet, By Mouth, Daily, Maintenance, 12/21/20 16:02:00 EDT, ; Start Date: 12/21/20 Status: OrderedBevespi Aerosphere 9 mcg-4.8 mcg/inh inhalation aerosol See Instructions, INHALE 2 PUFFS BY MOUTH TWO TIMES A DAY, # 10.7 Gm, 11 Refills, Maintenance, [facility], 30, INHALE 2 PUFFS BY [...] 12/28/20 9:19:00 EDT, Route to Pharmacy Electronically, [facility] # [facility], Partial fill upon [...] 5 Refills, Maintenance, 08/22/20 18:56:00 EST, Aerosol, [facility] # 50, 149.9, cm, 06/07/20 11:48:00 EST, Height, 68.9, kg, 07/12/19 14:56:00 EST, DryWeight Start Date: 08/22/20 Status: OrderedFLUoxetine 40 mg oral capsule 1 capsule = 40 mg, By Mouth, Daily, # 30 capsule, 5 Refills, Maintenance, 08/13/20 10:39:00 EST, Capsule, [facility] # 50, 149.9, cm, 06/07/20 11:48:00 EST, Height, 68.9, kg, 07/12/19 14:56:00 EST,Dry Weight Start Date: 08/13/20 Status: Orderedfurosemide 20 mg oral tablet 20 mg, 1, tablet, By Mouth, Daily, Refills 0, Maintenance, 12/21/20 16:04:00 EDT, ; Start Date: 12/21/20 Status: Orderedhydrocortisone 2.5% topical cream 1 application, Topically, 3 times a day, # 30 Gm, 3 Refills, Maintenance, 08/10/18 11:58:13 EST, Cream, 1 application Topically 3 times a day Start Date: 08/10/18 Status: OrderedHYDROmorphone 4 mg oral tablet 1 tablet = 4 mg, By Mouth, Every 8 hours, # 84 tablet, 0 Refills, Maintenance, 01/03/21 16:59:00 EDT, Tablet, [facility] # 50, partial fill upon request, 01/09/21, 149.9, cm, 11/13/20 11:13:00 EDT,Height, 68.9, kg, 12/21/20 8:52:00 EDT, Dry Weight Start Date: 01/03/21 Stop Date: 01/31/21 Status: Orderedlevothyroxine 125 mcg (0.125 mg) oral tablet 1 tablet = 125 mcg, By Mouth, Daily, # 30 tablet, 5 Refills, Maintenance, 10/10/20 7:25:00 EDT, Tablet, [facility] # 50, 149.9, cm, 08/28/20 14:48:00 EST, Height, 68.9, kg, 07/12/19 14:56:00 EST, Dry Weight Start Date: 10/10/20 Status: Orderedmetoprolol 25 mg oral tablet 25 mg, 1, tablet, By Mouth, 2 times a day, # 60 tablet, Refills 2, Tot. Refills 2, Maintenance, 11/13/20 16:41:00 EDT, Route to Pharmacy Electronically, [facility] # 50, 149.9, cm, 11/13/20 11:13:00 EDT, Height, 68.9, kg, 07/12/19 14:56:00 EST, Start Date: 11/13/20 Status: OrderedoxyCODONE 5 mg oral tablet 5 mg, 1, tablet, By Mouth, Every 6 hours, PRN, # 5 tablet, Refills 0, Tot. Refills 0, Maintenance, Pain , Severe, 12/27/20 9:18:00 EDT, Route to Pharmacy Electronically, [facility], Partial fill upon patient request if the prescription i... Start Date: 12/27/20 Status: OrderedPlavix 75 mg oral tablet 75 mg, 1, tablet, By Mouth, Daily, # 30 tablet, Refills 0, Tot. Refills 0, Maintenance, 12/27/20 9:18:00 EDT, Route to Pharmacy Electronically, [facility] 3, Partial fill upon patient request if the prescription is for a schedule II opioid... Start Date: 12/27/20 Status: OrderedPriLOSEC OTC 20 mg oral delayed release tablet 1 tablet = 20 mg, By Mouth, Daily, # 90 tablet, 0 Refills, Maintenance, 11/06/20 16:02:00 EDT, CR Tablet, [facility] # 50, 149.9, cm, 10/26/20 14:49:00 EDT, Height, 68.9, kg, 07/12/19 14:56:00 EST,Dry Weight Start Date: 11/06/20 Status: Orderedrosuvastatin 10 mg oral capsule 1 capsule = 10 mg, By Mouth, Daily, # 30 capsule, 11 Refills, Maintenance, 08/29/20 15:01:00 EST, Capsule, [facility] # 50, Partial fill upon patient request if the prescription is for a schedule II opioid drug., 149.9, cm, 08/28/20 14:48:00 EST,... Start Date: 08/29/20 Status: OrderedTylenol 325 mg oral tablet 650 mg, 2, tablet, By Mouth, Every 4 hours, PRN, # 24 tablet, Refills 0, Tot. Refills 0, Maintenance, Pain , Mild, 12/27/20 9:18:00 EDT, Route to Pharmacy Electronically, [facility], Partial fill upon patient request if the prescription... Start Date: 12/27/20 Status: OrderedVentolin HFA 108 mcg/inh inhalation aerosol with adapter 2 puffs, Inhalation, 4 times a day, PRN for wheezing, # 1 each, 5 Refills, Maintenance, 10/18/20 9:01:00 EDT, Aerosol, [facility] # 50, 149.9, cm, 08/28/20 [...] 5 Refills, Maintenance, 11/06/20 16:02:00 EDT, Tablet, [facility] # 50, 149.9, cm, 10/26/20 [...] Osteopenia(Confirmed)34 Active PAD (peripheral artery Active disease)stenting 2016(Confirmed) Chronic prescription opiate Active use(Confirmed) Vitamin D Deficiency(Confirmed) Active 1per gastroenterology;ozacqtc3Vygwgtft to gastroenterology no-show for zwssirrctfw1ruc4 40%4chronic cmxmtrwhhp7AUSX:2 low jmrwv2CEQT 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,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 ykhfesa3ozrqbb repeat sdx; injections,fentanyl,morphine,oxycodone er8Dr Oh no surgery re neck,obns2jiz Dr King,yesterday NO SURGERY, rx corsett,pool10 evaluated by two neurosurgeons,pain mknyyhjm00bwcbv yo75Rnbtdn 24-hour urine abtjniwy56CSFW increased alpha2 ziuindlbx76nyznep iron,ferrritin,cderloplasmin; neg HEP a,B,J80bwlxuhs Oswestry Disability Index: 48% ( severe disability ) on 04/15/16; updated [place] Back Pain Scale:44 on 04/15/16; updated [place]: 7 on 04/15/1616Initial Oswestry Disability Index: 48% ( severe disability ) on 11/24/14; initial [place] Back Pain Scale: 48 on 11/24/14; initial [place]: 5 on 11/24/1516egd . Bilateral common femoral artery endarterectomy. 3. Left common femoral artery patch angioplasty with PTFE. 4. 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 CURRENT THERAPY: Tamoxifen started in 11/17/14, prior anastrozole 11/2012- 09/2014, zoledronic acid, received 02/2015 and 08/2015.88zbtec22Xxpifrhivkhoiw Summary Successful drug eluting stenting of the proximal LAD coronary artery with a 3.5X15 mm plus 3.0X8 mm Xience Alpine stents as described above. The second stent was needed to cover distal edge of th efirst stent in an overlapping fashion. 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
--- OUTSIDE RECORDS SUMMARY | 2022-06-11 12:42 | XMS_ITS | Continuity of Care Document ---
:1945 Author Organization [facility] Address [address] [place] [address]- Care Team Providers Name Role Phone Christina BAZAN, Chino Dao Primary Care Physician [place] [facility] [place] 09[place]19 [facility] [address] [place] [address]- [facility] Encounter Diagnosis Ascites (Discharge Diagnosis) - 09/21/19 Lower extremity edema (Discharge Diagnosis) - 09/23/19 Attending Physician: Rosy Alvares NP Allergies, Adverse Reactions, Alerts Substance Reaction Severity [...] Given P atient Refuses 1Result Comment: [05/27/2017] [facility] [id number]/Late Reason: Wan to Standard Admin [id number] Note: #24Admin Note: historical data Medications Aspirin = 81 mg, By Mouth, Daily, 0 Refills, Maintenance Start Date: 12/26/11 Status: OrderedBevespi Aerosphere 9 mcg-4.8 mcg/inh inhalation aerosol 2 puffs, Inhalation, 2 times a day, 4 by 28 doses lot [id number] 05-14, # 1 Doses, 11 Refills, Maintenance, 02/12/19 10:52:38 EDT, 2 puffs Inhalation 2 times a day,Instr:4 by 28 doses; lot [id number] 05-14 Start Date: 02/12/19 Status: Orderedcalcium (as [...] Status: Orderedhydrochlorothiazide-spironolactone 25 mg-25 mg oral tablet 1 tablet, By Mouth, Daily, # 30 tablet, 0 Refills, Maintenance, 09/21/19 14:31:00 EST, Tablet, [facility] # 50, 1 tablet By Mouth Daily, 149.9, cm, 09/21/19 14:02:00 EST, Height, 68.9, kg, 07/12/1914:56:00 EST, Dry Weight Start Date: 09/21/19 Status: Orderedhydrocortisone 2.5% topical cream 1 application, Topically, 3 times a day, # 30 Gm, 3 Refills, Maintenance, 08/10/18 11:58:13 EST, Cream, 1 application Topically 3 times a day Start Date: 08/10/18 Status: OrderedHYDROmorphone 4 mg oral tablet 1 tablet = 4 mg, By Mouth, Every 8 hours, # 84 tablet, 0 Refills, Maintenance, 09/08/19 14:17:00 EST, Tablet, [facility] # 50, partial fill upon request, 09/14/19, 149.9, cm, 07/19/19 9:45:00 EST, Height, 68.9, kg, 07/12/19 14:56:00 EST, Dry Weight Start Date: 09/08/19 Stop Date: 10/06/19 Status: Orderedlevothyroxine 125 mcg (0.125 mg) oral tablet 1 tablet = 125 mcg, By Mouth, Daily, # 30 tablet, 2 Refills, Maintenance, 07/20/19 14:38:00 EST, Tablet, [facility] # 50, 149.9, cm, 07/19/19 9:45:00 EST, Height, 68.9, kg, 07/12/19 14:56:00 EST, Dry Weight Start Date: 07/20/19 Status: Orderedmetoprolol 25 mg oral tablet 25 mg, 1, tablet, By Mouth, 2 times a day, # 60 tablet, Refills 5, Tot. Refills 5, Maintenance, 08/16/19 11:35:00 EST, Route to Pharmacy Electronically, [facility] # 50, 149.9, cm, 07/19/19 9:45:00EST, Height, 68.9, kg, 07/12/19 14:56:00 EST, Dry... Start Date: 08/16/19 Status: OrderedPlavix 75 mg oral tablet 75 mg, 1, tablet, By Mouth, Daily in AM, # 30 tablet, Refills 5, Tot. Refills 5, Maintenance, 08/17/19 8:35:00 EST, Route to Pharmacy Electronically, [facility] # 50, 149.9, cm, 07/19/19 9:45:00 EST, Height, 68.9, kg, 07/12/19 14:56:00 EST, Dry We... Start Date: 08/17/19 Status: Orderedpravastatin 10 mg oral tablet 2 tablet = 20 mg, By Mouth, Daily, # 30 tablet, 5 Refills, Maintenance, 05/11/19 9:20:40 EDT, Tablet, [facility] # 50 Start Date: 05/11/19 Status: OrderedPriLOSEC OTC 20 mg oral delayed release tablet 1 tablet = 20 mg, By Mouth, Daily, # 90 tablet, 1 Refills, Maintenance, 08/17/19 10:42:00 EST, CR Tablet, [facility] # 50, 149.9, cm, 07/19/19 [...] 23 H/O nausea(Confirmed) Active History of (NSTEMI) 201511/10/15 Active TIBURCIO(Confirmed)24 Hyperkalemia(Confirmed) 03/08/19 Active 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)25 Impaired Fasting Glucose(Confirmed)26 06/03/07 Active Infiltrating ductal carcinoma of Active breast left;lumpectomy 2012/xrt 2012(Confirmed)27, 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 current use of opiate Active analgesic(Confirmed)29, 30, [...] Active 42 Vitamin D Deficiency(Confirmed) Active 1per gastroenterology;jsxdvvh1Mtojhfps to gastroenterology no-show for gcbaabmgfth1BOE9z jds8IXu6 four low nprxq7gbv7 40%6chronic vjqikbrsin2QVDM:2 low ndupp5VCOY 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,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 kqpqwsp9waovqu repeat sdx; injections,fentanyl,morphine,oxycodone er10Dr Oh no surgery re neck,evxx33lwu Dr King,yesterday NO SURGERY, rx corsett,qujk32jcijhftzz by two neurosurgeons,pain mbeaupxf97cxgrn cj36Rcjdfm 24-hour urine ljrgqard80NSQH increased alpha2 fqfpgaxjr65qdqdji iron,ferrritin,cderloplasmin; neg HEP a,B,C17 updated Oswestry Disability Index: 48% ( severe disability ) on 04/15/16; updated [place] Back Pain Scale:44 on 04/15/16; updated [place]: 7 on 04/15/1618Initial Oswestry Disability Index: 48% ( severe disability ) on 11/24/14; initial [place] Back Pain Scale: 48 on 11/24/14; initial [place]: 5 on 11/24/1518egd [id number]. Bilateral common femoral artery endarterectomy. 3. Left common femoral artery patch angioplasty with PTFE. 4. Dycc-gi-tcton femoral-femoral bypass with 8-mm ringed PTFE xudxq69lrvfgvb 20140829in EW26tcluo02Gdecxbhmgkfrea Summary Successful drug eluting stenting of the proximal LAD coronary artery with a 3.5X15 mm plus 3.0X8 mm Xience Alpine stents as described above. The second stent was needed to cover distal edge of th efirst stent in an overlapping fashion. 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,pain agreement kvh56jtwn 236zaj0 2 epworth 287ggstag53jm stable;recheck 12 hbyzxh52oepwo lung nodules on neck CT recheck 6 jkbbyi00vsan normal,b12 low ftomei14tgr terst amp45kibrezp D deficiency;ftoangxahp05kry0 40%42Per pulmonary function testing April 2014 Diagnosis Diagnosis Type Effective Dates Health Status Clinical In formant Service Ascites Discharge 09/21/19 Diagnosis Lower extremity Discharge 09/23/19 edema Diagnosis Vital Signs Most recent to oldest [Reference Range]: 1 Height 149.9 cm (09/21/19 2:02 PM) Weight 69.6 kg (09/21/19 2:02 PM) Oxygen Saturation [94-100 %] 96 % (09/21/19 2:02 PM) Pulse Rate [55-90 bpm] 66 bpm (09/21/19 2:02 PM) Body Mass Index [18.5-24.99] 30.97 *>HHI* (09/21/19 2:02 PM) Blood Pressure [90-138/55-84 mm Hg] 138/60 mm Hg (09/21/19 2:02 PM) Respiratory Rate [16-30 br/min] 12 br/min *L* (09/21/19 2:02 PM) Temperature [96.8-100.4 DegF] 98.2 DegF (09/21/19 2:02 PM) Mode of Delivery (Oxygen) Room air (09/21/19 2:02 PM) Blood pressure sites Arm, right (09/21/19 2:02 PM) Temperature Route Oral (09/21/19 2:02 PM) Weight Obtained Via Standing scale (09/21/19 2:02 PM) Social History Social History Type Response 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
--- OUTSIDE RECORDS SUMMARY | 2022-06-11 12:42 | XMS_ITS | Continuity of Care Document ---
:1945 Author Organization [facility] Address [address] [place] [address]- Care Team Providers Name Role Phone Christina BAZAN, Chino Dao Primary Care Physician Encounter [facility] [place] Date(s): 11/13/20 - 12/13/20 [facility] [address] [place] [id number]- Attending Physician: Admtr, Ar8 Admitting Physician: Admtr, Ar8 Referring Physician: Admtr, Ar8 Allergies, Adverse Reactions, Alerts Substance Reaction Severity Status spironolactone1 Active lisinopril2 Active atorvastatin3 Active amLODIPine4 Active 3nuunm2cdlerap otghvhpj0xxtb5pwgbs Immunizations Given and Recorded Vaccine Date Status [...] Given P atient Refuses 1Result Comment: [05/27/2017] [facility] [id number]/Late Reason: Wan to Standard Admin Qaaqi4Jcurc Note: #24Admin Note: historical data Medications Aspirin = 81 mg, By Mouth, Daily, 0 Refills, Maintenance Start Date: 12/26/11 Status: OrderedBevespi Aerosphere 9 mcg-4.8 mcg/inh inhalation aerosol 2 puffs, Inhalation, 2 times a day, 4 by 28 doses, # 5.9 Gm, 11 Refills, Maintenance, 04/25/20 11:19:00 EDT, [facility], 2 puffs Inhalation 2 times a day,Instr:4 by 28 doses, 149.9, cm, 02/14/20 11:11:00 EDT, Height, 68.9, kg, 07/12/19 14:56:... Start Date: 04/25/20 Status: OrderedBevespi Aerosphere 9 mcg-4.8 mcg/inh inhalation aerosol See Instructions, INHALE 2 PUFFS BY MOUTH TWO TIMES A DAY, # 10.7 Gm, 11 Refills, Maintenance, [facility], 30, INHALE 2 PUFFS BY [...] hours, # 84 tablet, 0 Refills, Maintenance, 11/29/20 14:56:00 EDT, Tablet, [facility] # [facility], partial fill upon request, 12/05/20, 149.9, cm, 11/13/20 11:13:00 EDT,Height, 68.9, kg, 07/12/19 14:56:00 EST, Dry Weight Start Date: 11/29/20 Stop Date: 12/27/20 Status: Orderedlevothyroxine 125 mcg (0.125 mg) oral [...] 11/13/20 16:41:00 EDT, Route to Pharmacy Electronically, [facility] # [facility], 149.9, cm, 11/13/20 11:13:00 EDT, Height, 68.9, kg, 07/12/19 14:56:00 EST, DrClementina.. Start Date: 11/13/20 Status: OrderedPriLOSEC OTC 20 mg oral delayed release tablet 1 tablet = 20 mg, By Mouth, Daily, # 90 tablet, 0 Refills, Maintenance, 11/06/20 16:02:00 EDT, CR Tablet, [facility] # [facility], 149.9, cm, 10/26/20 [...] 5 Refills, Maintenance, 10/18/20 9:01:00 EDT, Aerosol, [facility] # [facility], 149.9, cm, 08/28/20 [...] 5 Refills, Maintenance, 11/06/20 16:02:00 EDT, Tablet, [facility] # [facility], 149.9, cm, 10/26/20 [...] Active use(Confirmed) Vitamin D Deficiency(Confirmed) Active 1per gastroenterology;agiecii7Odrcqyse to gastroenterology no-show for wbsosrkxhjn7whh1 40%4chronic tisiuflbuc2GQQP:2 low qnfdt4ZOMW 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,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 oxrxwws3pnazdi repeat sdx; injections,fentanyl,morphine,oxycodone er8Dr Oh no surgery re neck,hpdm1nqt Dr King,yesterday NO SURGERY, rx corsett,pool10 evaluated by two neurosurgeons,pain jwebpmff47qtmex tn36Iaeyqd 24-hour urine qwheozek32URLK increased alpha2 xrtcnlrci44ytbszy iron,ferrritin,cderloplasmin; neg HEP a,B,B29yhizdtv Oswestry Disability Index: 48% ( severe disability ) on 04/15/16; updated [place] Back Pain Scale:44 on 04/15/16; updated [place]: 7 on 6Initial Oswestry Disability Index: 48% ( severe disability ) on 11/24/14; initial [place] Back Pain Scale: 48 on 11/24/14; initial [place]: 5 on 11/24/1516egd . Bilateral common femoral artery endarterectomy. 3. Left common femoral artery patch angioplasty with PTFE. 4. 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 CURRENT THERAPY: Tamoxifen started in 11/17/14, prior anastrozole 11/2012- 09/2014, zoledronic acid, received 02/2015 and 08/2015.11ierqc45Igqfcizyzjimrg Summary Successful drug eluting stenting of the proximal LAD coronary artery with a 3.5X15 mm plus 3.0X8 mm Xience Alpine stents as described above. The second stent was needed to cover distal edge of th efirst stent in an overlapping fashion. 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
--- OUTSIDE RECORDS SUMMARY | 2022-06-11 12:42 | XMS_ITS | Continuity of Care Document ---
:1945 Author Organization [facility] Address [address] [place] [address]- Care Team Providers Name Role Phone Christina BAZAN, Chino Dao Primary Care Physician Encounter [facility] Date(s): 06/20/20 - 07/20/20 [facility] [address] [place] [address]- Allergies, Adverse Reactions, Alerts Substance Reaction Severity Status atorvastatin1 Active amLODIPine2 Active 7ycmc0zycmm Immunizations Given and Recorded Vaccine Date Status [...] Given P atient Refuses 1Result Comment: [05/27/2017] [facility] [id number]/Late Reason: Wan to Standard Admin Erstn2Geiod Note: #24Admin Note: historical data Medications Aspirin [...] Active use(Confirmed) Vitamin D Deficiency(Confirmed) Active 1per gastroenterology;nnfitcc0Xocbfmoy to gastroenterology no-show for ioqqbgxpbva9lch6 40%4chronic hazsqcphkm9WFJA:2 low cbpfe0YCXX 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,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 kqtmxfn8nxfkzz repeat sdx; injections,fentanyl,morphine,oxycodone er8Dr Oh no surgery re neck,ysfc9maw Dr King,yesterday NO SURGERY, rx corsett,pool10 evaluated by two neurosurgeons,pain wqegdevw46lfkhk rn86Vlmpuw 24-hour urine llkruhhd99TQRZ increased alpha2 kyhnlslfy77lpltuz iron,ferrritin,cderloplasmin; neg HEP a,B,F52mlwujsq Oswestry Disability Index: 48% ( severe disability ) on 04/15/16; updated [place] Back Pain Scale:44 on 04/15/16; updated [place]: 7 on 04/15/1616Initial [place]estry Disability Index: 48% ( severe disability ) on 11/24/14; initial [place] Back Pain Scale: 48 on 11/24/14; initial [place]: 5 on 11/24/1516egd . Bilateral common femoral artery endarterectomy. 3. Left common femoral artery patch angioplasty with PTFE. 4. 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 CURRENT THERAPY: Tamoxifen started in 11/17/14, prior anastrozole 11/2012- 09/2014, zoledronic acid, received 02/2015 and 08/2015.10frstz06Urwuuqapqfirpo Summary Successful drug eluting stenting of the proximal LAD coronary artery with a 3.5X15 mm plus 3.0X8 mm Xience Alpine stents as described above. The second stent was needed to cover distal edge of th efirst stent in an overlapping fashion. 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
--- OUTSIDE RECORDS SUMMARY | 2022-06-11 12:42 | XMS_ITS | Continuity of Care Document ---
:1945 Author Organization [facility] Adult Address [address] [place] [address]- Care Team Providers Name Role Phone Christina BAZAN, Chino Dao Primary Care Physician Encounter [facility] Date(s): 10/14/19 - 10/21/19 [facility] [address] [place] [address]- [facility] Encounter Diagnosis Chronic Pain Syndrome (Discharge Diagnosis) - 10/13/19 Cervical Spondylosis without Myelopathy MRI 2009 (Discharge Diagnosis) - 10/13/19 Failed back syndrome, lumbar (Discharge Diagnosis) - 10/13/19 Chronic prescription opiate use (Discharge Diagnosis) - 10/13/19 Depression, major (Discharge Diagnosis) - 10/13/19 Coronary artery disease (Discharge Diagnosis) - 10/13/19 Benign Essential Hypertension (Discharge Diagnosis) - 10/13/19 Essential familial hyperlipidemia (Discharge Diagnosis) - 10/13/19 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) - 10/13/19 Fatty liver (Discharge Diagnosis) - 10/13/19 Gastro-esophageal reflux EGD 2011 (Discharge Diagnosis) - 10/13/19 History of (NSTEMI) 2016 TIBURCIO (Discharge Diagnosis) - 10/13/19 Hypothyroidism following radioiodine therapy (Discharge Diagnosis) - 10/13/19 Impaired Fasting Glucose (Discharge Diagnosis) - 10/13/19 Lymphedema of both lower extremities (Discharge Diagnosis) - 10/13/19 PAD (peripheral artery disease)stenting 2016 (Discharge Diagnosis) - 10/13/19 Chronic renal disease, stage III (Discharge Diagnosis) - 10/13/19 Deficiency of vitamin B12 (Discharge Diagnosis) - 10/14/19 History of peripheral artery bypass (Discharge Diagnosis) - 10/14/19 Osteopenia (Discharge Diagnosis) - 10/14/19 Vitamin D Deficiency (Discharge Diagnosis) - 10/14/19 Normocytic normochromic anemia (Discharge Diagnosis) - 10/14/19 Hyperkalemia (Discharge Diagnosis) - 10/14/19 Attending Physician: Chino Vasquez MD Allergies, Adverse Reactions, Alerts Substance Reaction Severity Status atorvastatin1 Active amLODIPine2 Active 2carq3ofiqs Immunizations Given and Recorded Vaccine Date Status [...] [05/27/2017] [facility] [id number]/Late Reason: Wan to Standard Admin Ocnit1Uargn Note: #24Admin Note: historical data Medications Aspirin = 81 mg, By Mouth, Daily, 0 Refills, Maintenance Start Date: 12/26/11 Status: OrderedBevespi Aerosphere 9 mcg-4.8 mcg/inh inhalation aerosol 2 puffs, Inhalation, 2 times a day, 4 by 28 doses lot [id number] 05-14, # 1 Doses, 11 Refills, Maintenance, 02/12/19 10:52:38 EDT, 2 puffs Inhalation 2 times a day,Instr:4 by 28 doses; lot [id number] 05-14 Start Date: 02/12/19 Status: Orderedcalcium (as [...] 5 Refills, Maintenance, 08/16/19 11:35:00 EST, Capsule, [facility] # [facility], 149.9, cm, 07/19/19 9:45:00 EST, Height, 68.9, kg, 07/12/19 14:56:00 EST, Dry Weight Start Date: 08/16/19 Status: Orderedfurosemide 20 mg oral tablet 20 mg, 1, tablet, By Mouth, Daily, # 30 tablet, Refills 0, Tot. Refills 0, Maintenance, 10/15/19 9:40:00 EDT, Route to Pharmacy Electronically, [facility] # [facility], 149.9, cm, 10/14/19 14:23:00 EDT, Height, 68.9, kg, 07/12/19 14:56:00 EST, Dry Weight Start Date: 10/15/19 Status: Orderedhydrocortisone 2.5% topical cream 1 application, Topically, 3 times a day, # 30 Gm, 3 Refills, Maintenance, 08/10/18 11:58:13 EST, Cream, 1 application Topically 3 times a day Start Date: 08/10/18 Status: OrderedHYDROmorphone 4 mg oral tablet 1 tablet = 4 mg, By Mouth, Every 8 hours, # 84 tablet, 0 Refills, Maintenance, 10/05/19 11:47:00 EDT, Tablet, [facility] # [facility], partial fill upon request, 10/12/19, 149.9, cm, 10/01/19 10:42:00 EST,Height, 68.9, kg, 07/12/19 14:56:00 EST, Dry Weight Start Date: 10/05/19 Stop Date: 11/02/19 Status: Orderedlevothyroxine 125 mcg (0.125 mg) oral tablet 1 tablet = 125 mcg, By Mouth, Daily, # 30 tablet, 5 Refills, Maintenance, 10/18/19 14:04:00 EDT, Tablet, [facility] # 50, 149.9, cm, 10/14/19 14:23:00 EDT, Height, 68.9, kg, 07/12/19 14:56:00 EST, Dry Weight Start Date: 10/18/19 Status: Orderedmetoprolol 25 mg oral tablet 25 mg, 1, tablet, By Mouth, 2 times a day, # 60 tablet, Refills 5, Tot. Refills 5, Maintenance, 08/16/19 11:35:00 EST, Route to Pharmacy Electronically, [facility] # [facility], 149.9, cm, 07/19/19 9:45:00EST, Height, 68.9, kg, 07/12/19 14:56:00 EST, Dry... Start Date: 08/16/19 Status: OrderedPlavix 75 mg oral tablet 75 mg, 1, tablet, By Mouth, Daily in AM, # 30 tablet, Refills 5, Tot. Refills 5, Maintenance, 08/17/19 8:35:00 EST, Route to Pharmacy Electronically, [facility] # [facility], 149.9, cm, 07/19/19 9:45:00 EST, Height, 68.9, kg, 07/12/19 14:56:00 EST, Dry We... Start Date: 08/17/19 Status: Orderedpravastatin 10 mg oral tablet 2 tablet = 20 mg, By Mouth, Daily, # 30 tablet, 5 Refills, Maintenance, 05/11/19 9:20:40 EDT, Tablet, [facility] # [facility] Start Date: 05/11/19 Status: OrderedPriLOSEC OTC 20 mg oral delayed release tablet 1 tablet = 20 mg, By Mouth, Daily, # 90 tablet, 1 Refills, Maintenance, 08/17/19 10:42:00 EST, CR Tablet, [facility] # 50, 149.9, cm, 07/19/19 9:45:00 EST, Height, 68.9, kg, 07/12/19 14:56:00 EST, Dry Weight Start Date: 08/17/19 Status: OrderedraNITIdine 150 mg oral tablet 1 tablet = 150 mg, By Mouth, 2 times a day, # 60 tablet, 11 Refills, Maintenance, 10/20/18 11:36:14 EDT, Tablet, replaces omeprazole Start Date: 10/20/18 Status: Orderedspironolactone 25 mg oral tablet See Instructions, 1/2 daily, # 30 tablet, Refills 6, Tot. Refills 6, Maintenance, 10/15/19 9:40:00 EDT, Instructions Replace Required Details, Route to Pharmacy Electronically, [facility] # [facility], 149.9, cm, 10/14/19 14:23:00 EDT, Height, 68.9, kg, 1... Start Date: 10/15/19 Status: OrderedVentolin HFA 108 mcg/inh inhalation aerosol with adapter 2 puffs, Inhalation, 4 times a day, PRN for wheezing, # 1 each, 5 Refills, Maintenance, 10/11/19 21:30:00 EDT, Aerosol, [facility] # [facility], 149.9, cm, 10/01/19 10:42:00 EST, Height, 68.9, kg, 07/12/1914:56:00 EST, Dry Weight Start Date: 10/11/19 Status: OrderedVitamin B12 1000 mcg oral tablet [...] Daily, # 30 tablet, 11 Refills, Maintenance, 10/15/19 9:40:00 EDT, Tablet, [facility] # [facility], 149.9, cm, 10/14/19 14:23:00 EDT, Height, 68.9, kg, 07/12/19 14:56:00 EST, Dry Weight Start Date: 10/15/19 Status: Ordered Problem List Condition Effective Dates [...] Active use(Confirmed) Vitamin D Deficiency(Confirmed) Active 1per gastroenterology;hxwvlza9Loebvayt to gastroenterology no-show for llhikvyydwa1nnx2 40%4chronic qwmhonbipq3LXLY:2 low xkjya1KMBJ test done,MASS [employer] qiiqsdj8umkuwc repeat sdx; injections,fentanyl,morphine,oxycodone er8Dr Oh no surgery re neck,ehvn8apu Dr King,yesterday NO SURGERY, rx corsett,pool10 evaluated by two neurosurgeons,pain hnvhpeic70dqdbj fa31Lwufiw 24-hour urine uqdvvwed18KOFJ increased alpha2 kwcclzwae40bkedbu iron,ferrritin,cderloplasmin; neg HEP a,B,K26viwhorp Oswestry Disability Index: 48% ( severe disability ) on 04/15/16; updated [place] Back Pain Scale:44 on 04/15/16; updated [place]: 7 on 04/15/1616Initial Oswestry Disability Index: 48% ( severe disability ) on 11/24/14; initial [place] Back Pain Scale: 48 on 11/24/14; initial [place]: 5 on 11/24/1516egd . Bilateral common femoral artery endarterectomy. 3. Left common femoral artery patch angioplasty with PTFE. 4. 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 CURRENT THERAPY: Tamoxifen started in 11/17/14, prior anastrozole 11/2012- 09/2014, zoledronic acid, received 02/2015 and 08/2015.07pjytc68Qmlkizisliburr Summary Successful drug eluting stenting of the proximal LAD coronary artery with a 3.5X15 mm plus 3.0X8 mm Xience Alpine stents as described above. The second stent was needed to cover distal edge of th efirst stent in an overlapping fashion. The stents were post-dilated using a 3.5 mm non-compliant balloon.25 now hyperthyroid,exopthalmous;Dr MurphyRvozqf15sjzcheq pre diabetes increased risk mecfjlsd23vbgnqi03as stable;recheck 12 anlvyh47jakei lung nodules on neck CT recheck 6 ssjmiq60XTA5i lap71OZk4 four low evmji05bqft normal,b12 low fit terst cdu55bydmfdw D deficiency;correcting Diagnosis Diagnosis Type Effective Dates Health [facility] Status Service Chronic Pain Discharge 10/13/19 Syndrome Diagnosis Cervical Spondylosis Discharge 10/13/19 without Myelopathy Diagnosis MRI 2009 Failed back Discharge 10/13/19 syndrome, lumbar Diagnosis Chronic prescription Discharge 10/13/19 opiate use Diagnosis Depression, major Discharge 10/13/19 Diagnosis Coronary artery Discharge 10/13/19 disease Diagnosis Benign Essential Discharge 10/13/19 Hypertension Diagnosis Essential familial Discharge 10/13/19 hyperlipidemia Diagnosis COPD with asthma Discharge 10/13/19 fev1 40% Diagnosis Fatty liver Discharge 10/13/19 Diagnosis Gastro-esophageal Discharge 10/13/19 reflux EGD 2011 Diagnosis History of (NSTEMI) Discharge 10/13/192015 TIBURCIO Diagnosis Hypothyroidism Discharge 10/13/19 following Diagnosis radioiodine therapy Impaired Fasting Discharge 10/13/19 Glucose Diagnosis Lymphedema of both Discharge 10/13/19 lower extremities Diagnosis PAD (peripheral Discharge 10/13/19 artery Diagnosis disease)stenting 2015 Chronic renal Discharge 10/13/19 disease, stage III Diagnosis Deficiency of Discharge 10/14/19 vitamin B12 Diagnosis History of Discharge 10/14/19 peripheral artery Diagnosis bypass Osteopenia Discharge 10/14/19 Diagnosis Vitamin D Deficiency Discharge 10/14/19 Diagnosis Normocytic Discharge 10/14/19 normochromic anemia Diagnosis Hyperkalemia Discharge 10/14/19 Diagnosis Vital Signs Most recent to oldest [Reference Range]: 1 2 Height 149.9 cm 149.9 cm (10/14/19 2:23 PM) (10/14/19 1:52 PM) Weight 70.2 kg (10/14/19 1:52 PM) Oxygen Saturation [94-100 %] 97 % (10/14/19 1:52 PM) Pulse Rate [55-90 bpm] 64 bpm (10/14/19 1:52 PM) Body Mass Index [18.5-24.99] 31.24 *>HHI* (10/14/19 1:52 PM) Blood Pressure [90-138/55-84 mm Hg] 130/70 mm Hg 142/ 70 mm Hg (10/14/19 2:23 PM) *H* (10/14/19 1:52 PM) Respiratory Rate [16-30 br/min] 16 br/min (10/14/19 1:52 PM) Temperature [96.8-100.4 DegF] 98.3 DegF (10/14/19 1:52 PM) Mode of Delivery (Oxygen) Room air (10/14/19 1:52 PM) Blood pressure sites Arm, right Arm, left (10/14/19 2:23 PM) (10/14/19 1:52 PM) Temperature Route Oral (10/14/19 1:52 PM) Weight Obtained Via Standing scale (10/14/19 1:52 PM) Social History Social History Type Response 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
--- OUTSIDE RECORDS SUMMARY | 2022-06-11 12:42 | XMS_ITS | Continuity of Care Document ---
:1945 Author Organization [facility] Adult Address [address] [place] [address]- Care Team Providers Name Role Phone Chino Vasquez MD Primary Care Physician Encounter [facility] Date(s): 04/06/21 - 04/13/21 [facility] Adult [address] [place] [address]- Attending Physician: Solange Starr NP Referring Physician: Chino Vasquez MD Allergies, Adverse Reactions, Alerts Substance Reaction Severity Status spironolactone1 Active lisinopril2 Active atorvastatin3 Active amLODIPine4 Active 2degkc6sbyeuer bkhgnbjn7vpjo8nrtog Immunizations Given and Recorded Vaccine Date Status [...] Given P atient Refuses 1Result Comment: [05/27/2017] [facility] [id number]/Late Reason: Wan to Standard Admin Gqhgh1Xodri Note: #24Admin Note: historical data Medications aspirin [...] 04/03/21 13:25:00 EDT, Route to Pharmacy Electronically, [facility] # [facility], Partial fill upon patient request if the prescription is for a schedule II opio... Start Date: 04/03/21 Status: Orderedchlorthalidone 25 mg oral tablet See Instructions, TAKE ONE TABLET BY MOUTH EVERY DAY, # 30 tablet, Refills 5, Tot. Refills 5, Maintenance, 02/20/21 1:48:00 EDT, Instructions Replace Required Details, Route to Pharmacy Electronically,[facility] # [facility], 149, cm, 02/09/21 10:03:00 E... Start Date: 02/20/21 Status: OrderedcloNIDine 0.1 mg oral tablet 0.1 mg, 1, tablet, By Mouth, 2 times a day, # 60 tablet, Refills 6, Tot. Refills 6, Maintenance, 04/13/21 5:37:00 EDT, Route to Pharmacy Electronically, [facility] # [facility], Partial fill upon patient request if the prescription is for a schedule II op... Start Date: 04/13/21 Status: Ordereddocusate sodium 100 mg oral capsule 100 mg, 1, capsule, By Mouth, Daily, PRN, Maintenance, as needed for constipation, 12/21/20 16:05:00EDT, ; Start Date: 12/21/20 Status: Ordereddoxycycline hyclate 100 mg oral capsule 2 capsule = 200 mg, By Mouth, Once, # 2 capsule, 0 Refills, Soft Stop, 03/27/21 10:17:00 EDT, [facility] # [facility], Partial fill upon patient request if the prescription is for a schedule II opioid drug., 149, cm, 03/27/21 10:16:00 EDT, Height, 68.9, k... Start Date: 03/27/21 Status: OrderedFlovent HFA 110 mcg/inh inhalation aerosol See Instructions, INHALE 2 PUFFS TWO TIMES A DAY, # 12 Gm, 5 Refills, Maintenance, [facility] # [facility], 149, cm, 02/09/21 10:03:00 EDT, Height, 68.9, kg, 12/21/20 8:52:00 EDT, Dry Weight Start Date: 02/09/21 Status: OrderedFLUoxetine 40 mg oral capsule See Instructions, TAKE 1 CAPSULE BY MOUTH DAILY., # 30 capsule, 5 Refills, Maintenance, [facility] # 50, 149, cm, 02/09/21 10:03:00 EDT, Height, 68.9, kg, 12/21/20 8:52:00 EDT, Dry Weight Start Date: 02/12/21 Status: Orderedhydrocortisone 2.5% topical cream 1 application, Topically, 3 times a day, # 30 Gm, 1 Refills, Maintenance, 01/09/21 12:15:00 EDT, Cream, [facility] # [facility], 1 application Topically 3 times a day, 149.9, cm, 01/09/21 12:01:00 EDT, Height, 68.9, kg, 12/21/20 8:52:00 EDT, Dry Weight Start Date: 01/09/21 Status: OrderedHYDROmorphone 4 mg oral tablet 1 tablet = 4 mg, By Mouth, Every 8 hours, # 84 tablet, 0 Refills, Maintenance, 03/27/21 7:54:00 EDT,Tablet, [facility] # 50, partial fill [...] 5 Refills, Maintenance, 10/10/20 7:25:00 EDT, Tablet, [facility] # 50, 149.9, cm, 08/28/20 14:48:00 EST, Height, 68.9, kg, 07/12/19 14:56:00 EST, Dry Weight Start Date: 10/10/20 Status: OrderedoxyCODONE 5 mg oral tablet 5 mg, 1, tablet, By Mouth, Every 6 hours, PRN, # 5 tablet, Refills 0, Tot. Refills 0, Maintenance, Pain , Severe, 12/27/20 9:18:00 EDT, Route to Pharmacy Electronically, [facility], Partial fill upon patient request if [...] 01/22/21 11:44:00 EDT, Route to Pharmacy Electronically, [facility] # 50, 149, cm, 01/18/21 11:04:00 EDT, Height, 68.9, kg, 12/21/20 8:52:00 EDT, Dry Weight Start Date: 01/22/21 Status: Orderedrosuvastatin 10 mg oral capsule 1 capsule = 10 mg, By Mouth, Daily, # 30 capsule, 11 Refills, Maintenance, 08/29/20 15:01:00 EST, Capsule, [facility] # 50, Partial fill upon patient request if the prescription is for a schedule II opioid drug., 149.9, cm, 08/28/20 14:48:00 EST,... Start Date: 08/29/20 Status: OrderedTylenol 325 mg oral tablet 650 mg, 2, tablet, By Mouth, Every 4 hours, PRN, # 24 tablet, Refills 0, Tot. Refills 0, Maintenance, Pain , Mild, 12/27/20 9:18:00 EDT, Route to Pharmacy Electronically, [facility], Partial fill upon patient request if the prescription... Start Date: 12/27/20 Status: OrderedVentolin HFA 108 mcg/inh inhalation aerosol with adapter See Instructions, INHALE 2 PUFFS FOUR TIMES A DAY NEEDED FOR WHEEZING, # 18 Gm, 2 Refills, Maintenance, [facility] # [facility], 149, cm, [...] breast cancer Left, IDC, Active pT1c pN0, ER/NV positive, Her-2/angelito negative, 2012(Confirmed)22, 23 History of [...] Active use(Confirmed) Vitamin D Deficiency(Confirmed) Active 1per gastroenterology;udtlrqi6Uglsrzfy to gastroenterology no-show for szaghjxzzgz8kil0 40%4chronic jluwfcekre4WVZZ:2 low ascwb6OKWH test done,M[employer] utwfmxl5hvasby repeat sdx; injections,fentanyl,morphine,oxycodone er8Dr Oh no surgery re neck,qspq7nvr Dr King,yesterday NO SURGERY, rx corsett,pool10 evaluated by two neurosurgeons,pain iwbdchiu14oswzx ju25Asbhgu 24-hour urine svgaeile12LMGQ increased alpha2 koiioscqs41fctweg iron,ferrritin,cderloplasmin; neg HEP a,B,K06anszyso Oswestry Disability Index: 48% ( severe disability ) on 04/15/16; updated [place] Back Pain Scale:44 on 04/15/16; updated [place]: 7 on 04/15/1616Initial Oswestry Disability Index: 48% ( severe disability ) on 11/24/14; initial [place] Back Pain Scale: 48 on 11/24/14; initial [place]: 5 on 11/24/1516egd . Bilateral common femoral artery endarterectomy. 3. Left common femoral artery patch angioplasty with PTFE. 4. 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 CURRENT THERAPY: Tamoxifen started in 11/17/14, prior anastrozole 11/2012- 09/2014, zoledronic acid, received 02/2015 and 08/2015.78veawq84Kydduyngspizag Summary Successful drug eluting stenting of the proximal LAD coronary artery with a 3.5X15 mm plus 3.0X8 mm Xience Alpine stents as described above. The second stent was needed to cover distal edge of th efirst stent in an overlapping fashion. The stents were post-dilated using a 3.5 mm non-compliant balloon.25 now hyperthyroid,exopthalmous;Dr MurphyWdulvv94eifnnay pre diabetes increased risk qlrvqbpy17jychuh21cg stable;recheck 12 lkisnz02sbgwm lung nodules on neck CT recheck 6 xbnibt29DKS7x nsc60WTt0 four low cznom19miqy normal,b12 low pinzbt08 fit terst dio32scqgcam D deficiency;correcting Vital Signs Most recent to oldest [Reference Range]: 1 Oxygen Saturation [94-100 %] 97 % (04/06/21 1:38 PM) Pulse Rate [55-90 bpm] 64 bpm (04/06/21 1:38 PM) Blood Pressure [90-138/55-84 mm Hg] 160/60 mm Hg *H* (04/06/21 1:38 PM) Blood pressure sites Arm, right (04/06/21 1:38 PM) Social History Social History Type Response 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
--- NOTE | 2022-06-11 12:43 | PC.NURSE ---
@ 2815 CALL RECEIVED FROM PAM OF [facility] PT TX LINE WITH RN TO RN NUMBER FOR PRODUCTION LAPPING MACHINE OPERATOR [phone] PT SHOULD GO STRAIGHT TO PRODUCTION LAPPING MACHINE OPERATOR ISH HERE IN [facility] @ THIS TIME
--- OUTSIDE RECORDS SUMMARY | 2022-06-11 12:43 | XMS_ITS | Continuity of Care Document ---
:1945 Author Organization [facility] Address [address] [place] [id number]- Care Team Providers Name Role Phone Chino Vasquez MD Primary Care Physician [facility]): [facility] - 07/19/[address] [address]- [facility] Attending Physician: Chino Vasquez MD Allergies, Adverse [...] Given P atient Refuses 1Result Comment: [05/27/2017] [facility] [id number]/Late Reason: Wan to Standard Admin [id number] Note: #24Admin Note: historical data Medications amLODIPine 10 mg oral tablet 10 mg, 1, tablet, By Mouth, Daily, # 30 tablet, Refills 11, Tot. Refills 11, Maintenance, 08/10/18 11:54:38 EST, Route to Pharmacy Electronically, [id number], [facility] Start Date: 08/10/18 Status: OrderedAspirin = 81 mg, By Mouth, Daily, 0 Refills, Maintenance Start Date: 12/26/11 Status: OrderedBevespi Aerosphere 9 mcg-4.8 mcg/inh inhalation aerosol 2 puffs, Inhalation, 2 times a day, 4 by 28 doses lot [id number] 05-14, # 1 Doses, 11 Refills, Maintenance, 02/12/19 10:52:38 EDT, 2 puffs Inhalation 2 times a day,Instr:4 by 28 doses; lot [id number] 05-14 Start Date: 02/12/19 Status: OrderedFlovent HFA [...] tablet, 0 Refills, Maintenance, 07/13/19 9:03:00 EST,Tablet, [facility] # [facility], partial fill upon request, 07/20/19, 149.9, cm, 07/12/19 14:56:47 EST, Height, 68.9, kg, 07/12/19 14:56:47 EST, Dry Weight Start Date: 07/13/19 Stop Date: 08/10/19 Status: Orderedlevothyroxine 0.1 mg oral tablet 1 tablet = 100 mcg, By Mouth, Daily, # 30 tablet, 5 Refills, Maintenance, 05/28/19 9:34:46 EDT, Tablet Start Date: 05/28/19 Status: Orderedmetoprolol 25 mg oral tablet 25 mg, 1, tablet, By Mouth, 2 times a day, # 60 tablet, Refills 1, Tot. Refills 1, Maintenance, 06/14/19 13:25:57 EST, Route to Pharmacy Electronically, [id number], [facility] Start Date: 06/14/19 Status: OrderedPlavix 75 mg oral tablet 75 mg, 1, tablet, By Mouth, Daily in AM, # 30 tablet, Refills 5, Tot. 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 Active analgesic(Confirmed)29, 30, [...] Active 42 Vitamin D Deficiency(Confirmed) Active 1per gastroenterology;mljnefz8Oijotajt to gastroenterology no-show for bmthwjrpfdy3DUY6q ghv4XKl9 four low ncoov3mgp5 40%6chronic rtvucinvhn7VFUX:2 low lgpoc7AZGS test done,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 hvpkfoa0fmfgdz repeat sdx; injections,fentanyl,morphine,oxycodone er10Dr Oh no surgery re neck,pkoq72sps Dr King,yesterday NO SURGERY, rx corsett,dufe71yilpnyogk by two neurosurgeons,pain ezanlwyo17mtikf xw59Awclue 24-hour urine xqzlmnnj94LSQB increased alpha2 ykwifbnbc53rucbhv iron,ferrritin,cderloplasmin; neg HEP a,B,C17 updated Oswestry Disability Index: 48% ( severe disability ) on 04/15/16; updated [place] Back Pain Scale:44 on 04/15/16; updated [place]: 7 on 04/15/1618Initial Oswestry Disability Index: 48% ( severe disability ) on 11/24/14; initial [place] Back Pain Scale: 48 on 11/24/14; initial [place]: 5 on 11/24/1518egd [id number]. Bilateral common femoral artery endarterectomy. 3. Left common femoral artery patch angioplasty with PTFE. 4. Ayre-qn-xnxod femoral-femoral bypass with 8-mm ringed PTFE dscfb65clayriu 20140829in PQ13jmmrl16Calpwniuewgqvj Summary Successful drug eluting stenting of the proximal LAD coronary artery with a 3.5X15 mm plus 3.0X8 mm Xience Alpine stents as described above. The second stent was needed to cover distal edge of th efirst stent in an overlapping fashion. 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
--- OUTSIDE RECORDS SUMMARY | 2022-06-11 12:43 | XMS_ITS | Continuity of Care Document ---
:1945 Author Organization [address] [place] [address]- Care Team Providers Name Role Phone Chrisitna BAZAN, Chino Dao Primary Care Physician [facility] Date[facility]s): 01/09/21 - 01/16/[address] [place] [address]- Attending Physician: Dominique MUIR MD, Jaren Ruiz Allergies, Adverse Reactions, Alerts Substance Reaction Severity Status spironolactone1 Active lisinopril2 Active atorvastatin3 Active amLODIPine4 Active 9nquit1tojwbks fvhoxuef3mnzr2fzhcu Immunizations Given and Recorded Vaccine Date Status [...] Given P atient Refuses 1Result Comment: [05/27/2017] [facility] [id number]/Late Reason: Wan to Standard Admin [id number] Note: #24Admin Note: historical data Medications aspirin [...] days, REPLACES METOPROLOL, # 60 tablet, Refills 0, Tot. Refills 0, Acute 02/08/21 12:32:00 EDT, 01/09/21 12:32:00 EDT, Route to Pharmacy Electronically, [facility], REPLACES METOPROLOL, 149.... Start Date: 01/09/21 Stop Date: 02/08/21 Status: Orderedchlorthalidone 25 mg oral tablet 25 mg, 1, tablet, By Mouth, Daily, # 30 tablet, Refills 1, Tot. Refills 1, Maintenance, 12/28/20 9:19:00 EDT, Route to Pharmacy Electronically, [facility] # [facility], Partial fill [...] 5 Refills, Maintenance, 08/22/20 18:56:00 EST, Aerosol, [facility] # [facility], 149.9, cm, 06/07/20 11:48:00 EST, Height, 68.9, kg, 07/12/19 14:56:00 EST, DryWeight Start Date: 08/22/20 Status: OrderedFLUoxetine 40 mg oral capsule 1 capsule = 40 mg, By Mouth, Daily, # 30 capsule, 5 Refills, Maintenance, 08/13/20 10:39:00 EST, Capsule, [facility] # 50, 149.9, cm, 06/07/20 11:48:00 EST, Height, 68.9, kg, 07/12/19 14:56:00 EST,Dry Weight Start Date: 08/13/20 Status: Orderedhydrocortisone 2.5% topical cream 1 application, Topically, 3 times a day, # 30 Gm, 1 Refills, Maintenance, 01/09/21 12:15:00 EDT, Cream, [facility] # 50, 1 application Topically 3 times a day, 149.9, cm, 01/09/21 12:01:00 EDT, Height, 68.9, kg, 12/21/20 8:52:00 EDT, Dry Weight Start Date: 01/09/21 Status: OrderedHYDROmorphone 4 mg oral tablet 1 tablet = 4 mg, By Mouth, Every 8 hours, # 84 tablet, 0 Refills, Maintenance, 01/16/21 10:45:00 EDT, Tablet, [facility] # 50, partial fill upon request, 02/06/21, 149.9, cm, 01/09/21 15:17:00 EDT,Height, 68.9, kg, 12/21/20 8:52:00 EDT, Dry Weight Start Date: 01/16/21 Stop Date: 02/13/21 Status: OrderedHYDROmorphone 4 mg oral tablet 1 tablet = 4 mg, By Mouth, Every 8 hours, for 28 days, # 84 tablet, 0 Refills, Hard Stop 01/31/21 16:59:00 EDT, 01/03/21 16:59:00 EDT, Tablet, [facility] # 50, partial fill upon request, 01/09/21, 149.9, cm, 11/13/20 11:13:00 EDT, Height, 68.9, kg... Start Date: 01/03/21 Stop Date: 01/31/21 Status: OrderedImodium A-D 2 mg, By Mouth, Refills 0, Maintenance, 01/09/21 15:24:00 EDT, Partial fill upon patient request if the prescription is for a schedule II opioid drug. Start Date: 01/09/21 Status: Orderedlevothyroxine 125 mcg (0.125 mg) oral tablet 1 tablet = 125 mcg, By Mouth, Daily, # 30 tablet, 5 Refills, Maintenance, 10/10/20 7:25:00 EDT, Tablet, [facility] # 50, 149.9, cm, 08/28/20 14:48:00 EST, Height, 68.9, kg, 07/12/19 14:56:00 EST, Dry Weight Start Date: 10/10/20 Status: OrderedoxyCODONE 5 mg oral tablet 5 mg, 1, tablet, By Mouth, Every 6 hours, PRN, # 5 tablet, Refills 0, Tot. Refills 0, Maintenance, Pain , Severe, 12/27/20 9:18:00 EDT, Route to Pharmacy Electronically, [facility], Partial fill upon patient request if the prescription i... Start Date: 12/27/20 Status: OrderedPlavix 75 mg oral tablet 75 mg, 1, tablet, By Mouth, Daily, # 30 tablet, Refills 0, Tot. Refills 0, Maintenance, 12/27/20 9:18:00 EDT, Route to Pharmacy Electronically, [facility], Partial fill upon patient request if the prescription is for a schedule II opioid... Start Date: 12/27/20 Status: OrderedPriLOSEC OTC 20 mg oral delayed release tablet 1 tablet = 20 mg, By Mouth, Daily, # 90 tablet, 0 Refills, Maintenance, 11/06/20 16:02:00 EDT, CR Tablet, [facility] # 50, 149.9, cm, 10/26/20 14:49:00 EDT, Height, 68.9, kg, 07/12/19 14:56:00 EST,Dry Weight Start Date: 11/06/20 Status: Orderedrosuvastatin 10 mg oral capsule 1 capsule = 10 mg, By Mouth, Daily, # 30 capsule, 11 Refills, Maintenance, 08/29/20 15:01:00 EST, Capsule, [facility] # 50, Partial fill upon patient request if the prescription is for a schedule II opioid drug., 149.9, cm, 08/28/20 14:48:00 EST,... Start Date: 08/29/20 Status: OrderedTylenol 325 mg oral tablet 650 mg, 2, tablet, By Mouth, Every 4 hours, PRN, # 24 tablet, Refills 0, Tot. Refills 0, Maintenance, Pain , Mild, 12/27/20 9:18:00 EDT, Route to Pharmacy Electronically, [facility], Partial fill upon patient request if the prescription... 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 nnqwchf4lwhund repeat sdx; injections,fentanyl,morphine,oxycodone er8Dr Oh no surgery re neck,thcu5aiq Dr King,yesterday NO SURGERY, rx corsett,pool10 evaluated by two neurosurgeons,pain hhrzxwwh19glkvw ta23Zzbdfc 24-hour urine opzvseiq05KVGZ increased alpha2 uxnzopnsq59xwnnvk iron,ferrritin,cderloplasmin; neg HEP a,B,C79gzyihgx Oswestry Disability Index: 48% ( severe disability ) on 04/15/16; updated [place] Back Pain Scale:44 on 04/15/16; updated [place]: 7 on 04/15/1616Initial Oswestry Disability Index: 48% ( severe disability ) on 11/24/14; initial [place] Back Pain Scale: 48 on 11/24/14; initial [place]: 5 on 11/24/1516egd . Bilateral common femoral artery endarterectomy. 3. Left common femoral artery patch angioplasty with PTFE. 4. 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 CURRENT THERAPY: Tamoxifen started in 11/17/14, prior anastrozole 11/2012- 09/2014, zoledronic acid, received 02/2015 and 08/2015.23aquro69Mwbwdumgoblkwg Summary Successful drug eluting stenting of the proximal LAD coronary artery with a 3.5X15 mm plus 3.0X8 mm Xience Alpine stents as described above. The second stent was needed to cover distal edge of th efirst stent in an overlapping fashion. The stents were post-dilated using a 3.5 mm non-compliant balloon.25 now hyperthyroid,exopthalmous;Dr MurphyRvepfk37ecpsxlr pre diabetes increased risk qfopetsl74vzdftg07ey stable;recheck 12 mlynrn39bghyf lung nodules on neck CT recheck 6 gdggof17UQL3m kzx75HXi5 four low yadjw48sako normal,b12 low jdarig44 fit terst mni25pdkdatu D deficiency;correcting Vital Signs Most recent to oldest [Reference Range]: 1 Height 149.9 cm (01/09/21 3:17 PM) Pulse Rate [55-90 bpm] 94 bpm *H* (01/09/21 3:17 PM) Blood Pressure [90-138/55-84 mm Hg] 143/76 mm Hg *H* (01/09/21 3:17 PM) Temperature [96.8-100.4 DegF] 98 DegF (01/09/21 3:17 PM) Blood pressure sites Arm, right (01/09/21 3:17 PM) Temperature Route Temporal (01/09/21 3:17 PM) Social History Social History Type Response 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
--- OUTSIDE RECORDS SUMMARY | 2022-06-11 12:43 | XMS_ITS | Continuity of Care Document ---
:1945 Author Organization [facility] Address [address] [place] [address]- Care Team Providers Name Role Phone Christina BAZAN, Chino Dao Primary Care Physician [facility] - 01/16/21 [facility] [address] [place] [address]- Attending Physician: Not on Staff, Attending MD Allergies, Adverse Reactions, Alerts Substance Reaction Severity Status spironolactone1 Active lisinopril2 Active atorvastatin3 Active amLODIPine4 Active 3cofnv5stgfikz lpruhwwy2vnvy3dwwqj Immunizations Given and Recorded Vaccine Date Status [...] Given P atient Refuses 1Result Comment: [05/27/2017] [facility] [id number]/Late Reason: Wan to Standard Admin [id number] Note: #24Admin Note: historical data Medications aspirin [...] 01/09/21 12:32:00 EDT, Route to Pharmacy Electronically, [facility], REPLACES METOPROLOL, 149.... Start Date: 01/09/21 Stop Date: 02/08/21 Status: Orderedchlorthalidone 25 mg oral tablet 25 mg, 1, tablet, By Mouth, Daily, # 30 tablet, Refills 1, Tot. Refills 1, Maintenance, 12/28/20 9:19:00 EDT, Route to Pharmacy Electronically, [facility], Partial [...] 5 Refills, Maintenance, 08/22/20 18:56:00 EST, Aerosol, [facility], 149.9, cm, 06/07/20 11:48:00 EST, Height, 68.9, kg, 07/12/19 14:56:00 EST, DryWeight Start Date: 08/22/20 Status: OrderedFLUoxetine 40 mg oral capsule 1 capsule = 40 mg, By Mouth, Daily, # 30 capsule, 5 Refills, Maintenance, 08/13/20 10:39:00 EST, Capsule, [facility], 149.9, cm, 06/07/20 11:48:00 EST, Height, 68.9, kg, 07/12/19 14:56:00 EST,Dry Weight Start Date: 08/13/20 Status: Orderedhydrocortisone 2.5% topical cream 1 application, Topically, 3 times a day, # 30 Gm, 1 Refills, Maintenance, 01/09/21 12:15:00 EDT, Cream, [facility], 1 application Topically 3 times a day, 149.9, cm, 01/09/21 12:01:00 EDT, Height, 68.9, kg, 12/21/20 8:52:00 EDT, Dry Weight Start Date: 01/09/21 Status: OrderedHYDROmorphone 4 mg oral tablet 1 tablet = 4 mg, By Mouth, Every 8 hours, # 84 tablet, 0 Refills, Maintenance, 01/16/21 10:45:00 EDT, Tablet, [facility], partial fill upon request, 02/06/21, 149.9, cm, 01/09/21 15:17:00 EDT,Height, 68.9, kg, 12/21/20 8:52:00 EDT, Dry Weight Start Date: 01/16/21 Stop Date: 02/13/21 Status: OrderedHYDROmorphone 4 mg oral tablet 1 tablet = 4 mg, By Mouth, Every 8 hours, for 28 days, # 84 tablet, 0 Refills, Hard Stop 01/31/21 16:59:00 EDT, 01/03/21 16:59:00 EDT, Tablet, [facility], partial [...] 5 Refills, Maintenance, 10/10/20 7:25:00 EDT, Tablet, [facility], 149.9, cm, 08/28/20 14:48:00 EST, Height, 68.9, kg, 07/12/19 14:56:00 EST, Dry Weight Start Date: 10/10/20 Status: OrderedoxyCODONE 5 mg oral tablet 5 mg, 1, tablet, By Mouth, Every 6 hours, PRN, # 5 tablet, Refills 0, Tot. Refills 0, Maintenance, Pain , Severe, 12/27/20 9:18:00 EDT, Route to Pharmacy Electronically, [facility], Partial fill upon patient request if the prescription i... Start Date: 12/27/20 Status: OrderedPlavix 75 mg oral tablet 75 mg, 1, tablet, By Mouth, Daily, # 30 tablet, Refills 0, Tot. Refills 0, Maintenance, 12/27/20 9:18:00 EDT, Route to Pharmacy Electronically, [facility] 3, Partial fill upon patient request if the prescription is for a schedule II opioid... Start Date: 12/27/20 Status: OrderedPriLOSEC OTC 20 mg oral delayed release tablet 1 tablet = 20 mg, By Mouth, Daily, # 90 tablet, 0 Refills, Maintenance, 11/06/20 16:02:00 EDT, CR Tablet, [facility], 149.9, cm, 10/26/20 14:49:00 EDT, Height, 68.9, kg, 07/12/19 14:56:00 EST,Dry Weight Start Date: 11/06/20 Status: Orderedrosuvastatin 10 mg oral capsule 1 capsule = 10 mg, By Mouth, Daily, # 30 capsule, 11 Refills, Maintenance, 08/29/20 15:01:00 EST, Capsule, [facility], Partial [...] 12/27/20 9:18:00 EDT, Route to Pharmacy Electronically, [facility] 3, Partial fill upon patient request if the prescription... 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 qmmfmrc4uoidog repeat sdx; injections,fentanyl,morphine,oxycodone er8Dr Oh no surgery re neck,fjqo6nfn Dr King,yesterday NO SURGERY, rx corsett,pool10 evaluated by two neurosurgeons,pain rthtbckz93qifsm bi66Lwzqar 24-hour urine ajqbbxgw07HYSJ increased alpha2 chdepgtad17ikncpg iron,ferrritin,cderloplasmin; neg HEP a,B,M21qcxpxjc Oswestry Disability Index: 48% ( severe disability ) on 04/15/16; updated [place] Back Pain Scale:44 on 04/15/16; updated [place]: 7 on 04/15/1616Initial [place]estry Disability Index: 48% ( severe disability ) on 11/24/14; initial [place] Back Pain Scale: 48 on 11/24/14; initial [place]: 5 on 11/24/1516egd . Bilateral common femoral artery endarterectomy. 3. Left common femoral artery patch angioplasty with PTFE. 4. 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 CURRENT THERAPY: Tamoxifen started in 11/17/14, prior anastrozole 11/2012- 09/2014, zoledronic acid, received 02/2015 and 08/2015.85cfgeu34Lcetlbjdgkpkpq Summary Successful drug eluting stenting of the proximal LAD coronary artery with a 3.5X15 mm plus 3.0X8 mm Xience Alpine stents as described above. The second stent was needed to cover distal edge of th efirst stent in an overlapping fashion. The stents were post-dilated using a 3.5 mm non-compliant balloon.25 now hyperthyroid,exopthalmous;Dr MurphyKtzftt89vtykjpr pre diabetes increased risk mqidfypb53xwpykx44rm stable;recheck 12 hqfbke93ujuru lung nodules on neck CT recheck 6 jerldg35BIV9x lkb75CNt4 four low ivghc45zsxv normal,b12 low tqykdc37 fit terst oov25vzvritc D deficiency;correcting Vital Signs Most recent to oldest [Reference Range]: 1 2 Height 149.9 cm 149.9 cm (01/09/21 12: PM) (01/09/21 12:01 PM) Weight 70.2 kg (01/09/21 12:01 PM) Oxygen Saturation [94-100 %] 98 % (01/09/21 12:01 PM) Pulse Rate [55-90 bpm] 68 bpm (01/09/21 12: PM) Body Mass Index [18.5-24.99] 31.24 *>HHI* (01/09/21 12:01 PM) Blood Pressure [90-138/55-84 mm Hg] 148/68 mm Hg 138/ 74 mm Hg *H* (01/09/21 12:01 PM) (01/09/21 12:26 PM) Respiratory Rate [16-30 br/min] 12 br/min *L* (01/09/21 12:01 PM) Temperature [96.8-100.4 DegF] 98.9 DegF (01/09/21 12:01 PM) Mode of Delivery (Oxygen) Room air (01/09/21 12:01 PM) Blood pressure sites Arm, left Arm, left (01/09/21 12:26 PM) (01/09/21 12:01 PM) Temperature Route Oral (01/09/21 12:01 PM) Weight Obtained Via Standing scale (01/09/21 12:01 PM) Social History Social History Type Response 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
--- OUTSIDE RECORDS SUMMARY | 2022-06-11 12:43 | XMS_ITS | Continuity of Care Document ---
:1945 Author Organization [facility] Address [address] [place] [address]- Care Team Providers Name Role Phone Christina BAZAN, Chino Dao Primary Care Physician [facility] Date[facility]): [facility]/16/21 - 01/16/[address] [address]- Discharge Disposition: A-D/C Home Attending Physician: Sheryl Sanchez MD Admitting Physician: Sheryl Sanchez MD Referring Physician: Sheryl Sanchez MD Allergies, Adverse Reactions, Alerts Substance Reaction Severity Status spironolactone1 Active lisinopril2 Active atorvastatin3 Active amLODIPine4 Active 5fcphy4ymnwbmr wudfuqsu5vjpy6ykraw Immunizations Given and Recorded Vaccine Date Status [...] Given P atient Refuses 1Result Comment: [05/27/2017] [facility] [id number]/Late Reason: Wan to Standard Admin [id number] Note: #24Admin Note: historical data Medications aspirin [...] tablet, Refills 0, Tot. Refills 0, Acute 07/15/21 12:32:00 EDT, 01/09/21 12:32:00 EDT, Route to Pharmacy Electronically, [facility] # [facility], REPLACES METOPROLOL, 149.... Start Date: 01/09/21 Stop Date: 02/08/21 Status: Orderedchlorthalidone 25 mg oral tablet 25 mg, 1, tablet, By Mouth, Daily, # 30 tablet, Refills 1, Tot. Refills 1, Maintenance, 12/28/20 9:19:00 EDT, Route to Pharmacy Electronically, [facility] # 50, Partial fill upon [...] Maintenance, 08/22/20 18:56:00 EST, Aerosol, [facility] # 50, 149.9, cm, 06/07/20 11:48:00 EST, Height, 68.9, kg, 07/12/19 14:56:00 EST, DryWeight Start Date: 08/22/20 Status: OrderedFLUoxetine 40 mg oral capsule 1 capsule = 40 mg, By Mouth, Daily, # 30 capsule, 5 Refills, Maintenance, 08/13/20 10:39:00 EST, Capsule, [facility] # 50, 149.9, cm, 06/07/20 11:48:00 EST, Height, 68.9, kg, 07/12/19 14:56:00 EST,Dry Weight Start Date: 08/13/20 Status: Orderedhydrocortisone 2.5% topical cream 1 application, Topically, 3 times a day, # 30 Gm, 1 Refills, Maintenance, 01/09/21 12:15:00 EDT, Cream, [facility] # 50, 1 application Topically 3 times a day, 149.9, cm, 01/09/21 12:01:00 EDT, Height, 68.9, kg, 12/21/20 8:52:00 EDT, Dry Weight Start Date: 01/09/21 Status: OrderedHYDROmorphone 4 mg oral tablet 1 tablet = 4 mg, By Mouth, Every 8 hours, # 84 tablet, 0 Refills, Maintenance, 01/16/21 10:45:00 EDT, Tablet, [facility] # [facility], partial fill upon request, 02/06/21, 149.9, cm, 01/09/21 15:17:00 EDT,Height, 68.9, kg, 12/21/20 8:52:00 EDT, Dry Weight Start Date: 01/16/21 Stop Date: 02/13/21 Status: OrderedHYDROmorphone 4 mg oral tablet 1 tablet = 4 mg, By Mouth, Every 8 hours, for 28 days, # 84 tablet, 0 Refills, Hard Stop 01/31/21 16:59:00 EDT, 01/03/21 16:59:00 EDT, Tablet, [facility] # [facility], partial fill upon request, [...] 5 Refills, Maintenance, 10/10/20 7:25:00 EDT, Tablet, [facility] # 50, 149.9, cm, 08/28/20 14:48:00 EST, Height, 68.9, kg, 07/12/19 14:56:00 EST, Dry Weight Start Date: 10/10/20 Status: OrderedoxyCODONE 5 mg oral tablet 5 mg, 1, tablet, By Mouth, Every 6 hours, PRN, # 5 tablet, Refills 0, Tot. Refills 0, Maintenance, Pain , Severe, 12/27/20 9:18:00 EDT, Route to Pharmacy Electronically, [facility], Partial fill upon patient request if the prescription i... Start Date: 12/27/20 Status: OrderedPlavix 75 mg oral tablet 75 mg, 1, tablet, By Mouth, Daily, # 30 tablet, Refills 0, Tot. Refills 0, Maintenance, 12/27/20 9:18:00 EDT, Route to Pharmacy Electronically, [facility], Partial fill upon patient request if the prescription is for a schedule II opioid... Start Date: 12/27/20 Status: OrderedPriLOSEC OTC 20 mg oral delayed release tablet 1 tablet = 20 mg, By Mouth, Daily, # 90 tablet, 0 Refills, Maintenance, 11/06/20 16:02:00 EDT, CR Tablet, [facility] # 50, 149.9, cm, 10/26/20 14:49:00 EDT, Height, 68.9, kg, 07/12/19 14:56:00 EST,Dry Weight Start Date: 11/06/20 Status: Orderedrosuvastatin 10 mg oral capsule 1 capsule = 10 mg, By Mouth, Daily, # 30 capsule, 11 Refills, Maintenance, 08/29/20 15:01:00 EST, Capsule, [facility] # 50, Partial fill upon patient request if the prescription is for a schedule II opioid drug., 149.9, cm, 08/28/20 14:48:00 EST,... Start Date: 08/29/20 Status: OrderedTylenol 325 mg oral tablet 650 mg, 2, tablet, By Mouth, Every 4 hours, PRN, # 24 tablet, Refills 0, Tot. Refills 0, Maintenance, Pain , Mild, 12/27/20 9:18:00 EDT, Route to Pharmacy Electronically, [facility], Partial fill upon patient request if the prescription... Start Date: 12/27/20 Status: OrderedVentolin HFA 108 mcg/inh inhalation aerosol with adapter 2 puffs, Inhalation, 4 times a day, PRN for wheezing, # 1 each, 5 Refills, Maintenance, 10/18/20 9:01:00 EDT, Aerosol, 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 yxcbajf2negcpt repeat sdx; injections,fentanyl,morphine,oxycodone er8Dr Oh no surgery re neck,xugm0yid Dr King,yesterday NO SURGERY, rx corsett,pool10 evaluated by two neurosurgeons,pain zeqpudhn94tutcu re52Hzfvpd 24-hour urine nwtkdksx64NYWG increased alpha2 lfxvhsenn64zsmznd iron,ferrritin,cderloplasmin; neg HEP a,B,S00uobhffp Oswestry Disability Index: 48% ( severe disability ) on 04/15/16; updated [place] Back Pain Scale:44 on 04/15/16; updated [place]: 7 on 04/15/1616Initial [place]estry Disability Index: 48% ( severe disability ) on 11/24/14; initial [place] Back Pain Scale: 48 on 11/24/14; initial [place]: 5 on 11/24/1516egd . Bilateral common femoral artery endarterectomy. 3. Left common femoral artery patch angioplasty with PTFE. 4. 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 CURRENT THERAPY: Tamoxifen started in 11/17/14, prior anastrozole 11/2012- 09/2014, zoledronic acid, received 02/2015 and 08/2015.67xpnuh47Rxkomvbptabwib Summary Successful drug eluting stenting of the proximal LAD coronary artery with a 3.5X15 mm plus 3.0X8 mm Xience Alpine stents as described above. The second stent was needed to cover distal edge of th efirst stent in an overlapping fashion. The stents were post-dilated using a 3.5 mm non-compliant balloon.25 now hyperthyroid,exopthalmous;Dr MurphyFkriwq19ctukqmo pre diabetes increased risk rtevfmeg86jdrzhc70ww stable;recheck 12 zclyeo77cmawr lung nodules on neck CT recheck 6 rxwkmj78WQW8y fnz49QOw1 four low svfar76ebgu normal,b12 low itycgt82 fit terst qfe55ebgapvl D deficiency;correcting Procedures Procedure Date Related Diagnosis Body Site Status Colonoscopy 01/16/21 Completed Upper gastrointestinal endoscopy nad 01/16/21 Completed Vital Signs Most recent to oldest 1 2 3 [Reference Range]: Height 149 cm (01/16/21 12:20 PM) Weight 68.9 kg (01/16/21 12:20 PM) Oxygen Saturation [94-100 %] 100 % 96 % 99 % (01/16/21 2:05 PM) (01/16/21 2:00 PM) (01/16/21 12: 20 PM) Pulse Rate [55-90 bpm] 58 bpm 61 bpm 64 bpm (01/16/21 2:05 PM) (01/16/21 2:00 PM) (01/16/21 12: 20 PM) Body Mass Index [18.5-24.99] 31.03 *>HHI* (01/16/21 12:20 PM) Blood Pressure [90-138/55-84 142/63 mm Hg 110/55 mm Hg 171 /66 mm Hg mm Hg] *H* (01/16/21 2:00 PM) *H* (01/16/21 2:05 PM) (01/16/21 12:20 PM) Respiratory Rate [16-30 16 br/min 15 br/min 16 br/mi n br/min] (01/16/21 2:05 PM) *L* (01/16/21 12:20 PM) (01/16/21 2:00 PM) Temperature [96.8-100.4 DegF] 98.2 DegF (01/16/21 12:20 PM) Mode of Delivery (Oxygen) Room air Room air Room a ir (01/16/21 2:05 PM) (01/16/21 2:00 PM) (01/16/21 12: 20 PM) Blood pressure sites Arm, left Arm, left Arm, left (01/16/21 2:05 PM) (01/16/21 2:00 PM) (01/16/21 12: 20 PM) Temperature Route Temporal (01/16/21 12:20 PM) Social History Social History Type Response 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
--- OUTSIDE RECORDS SUMMARY | 2022-06-11 12:43 | XMS_ITS | Continuity of Care Document ---
:1945 Author Organization [facility] Address [address] [place] [address]- Care Team Providers Name Role Phone Christina BAZAN, [place] Dao Primary Care Physician [facility] - 02/21/21 [facility] [address] [place] [address]- Allergies, Adverse Reactions, Alerts Substance Reaction Severity Status spironolactone1 Active lisinopril2 Active atorvastatin3 Active amLODIPine4 Active 5tkpil9avhlzmr wzxbxofw7jhjl1kucqn Immunizations Given and Recorded Vaccine Date Status [...] Given P atient Refuses 1Result Comment: [05/27/2017] [facility] [id number]/Late Reason: Wan to Standard Admin [id number] Note: #24Admin Note: historical data Medications aspirin 81 mg oral delayed release tablet 81 mg, 1, tablet, By Mouth, Daily, Maintenance, 12/21/20 16:02:00 EDT, ; Start Date: 12/21/20 Status: OrderedBevespi Aerosphere 9 mcg-4.8 mcg/inh inhalation aerosol See Instructions, INHALE 2 PUFFS BY MOUTH TWO TIMES A DAY, # 10.7 Gm, 11 Refills, Maintenance, [facility], 30, INHALE 2 PUFFS BY [...] 02/08/21 12:32:00 EDT, Route to Pharmacy Electronically, [facility] # [facility], REPLACES METOPROLOL, 14... Start Date: 02/08/21 Stop Date: 02/03/22 Status: Orderedchlorthalidone 25 mg oral tablet See Instructions, TAKE ONE TABLET BY MOUTH EVERY DAY, # 30 tablet, Refills 5, Tot. Refills 5, Maintenance, 02/20/21 1:48:00 EDT, Instructions Replace Required Details, Route to Pharmacy Electronically,[facility] # [facility], 149, cm, 02/09/21 10:03:00 E... Start Date: 02/20/21 Status: Ordereddocusate sodium 100 mg oral capsule 100 mg, 1, capsule, By Mouth, Daily, PRN, Maintenance, as needed for constipation, 12/21/20 16:05:00EDT, ; Start Date: 12/21/20 Status: OrderedFlovent HFA 110 mcg/inh inhalation aerosol See Instructions, INHALE 2 PUFFS TWO TIMES A DAY, # 12 Gm, 5 Refills, Maintenance, [facility] # 50, 149, cm, 02/09/21 10:03:00 EDT, Height, 68.9, kg, 12/21/20 8:52:00 EDT, Dry Weight Start Date: 02/09/21 Status: OrderedFLUoxetine 40 mg oral capsule See Instructions, TAKE 1 CAPSULE BY MOUTH DAILY., # 30 capsule, 5 Refills, Maintenance, [facility] # 50, 149, cm, 02/09/21 10:03:00 EDT, Height, 68.9, kg, 12/21/20 8:52:00 EDT, Dry Weight Start Date: 02/12/21 Status: Orderedhydrocortisone 2.5% topical cream 1 application, Topically, 3 times a day, # 30 Gm, 1 Refills, Maintenance, 01/09/21 12:15:00 EDT, Cream, [facility] # 50, 1 application Topically 3 times a day, 149.9, cm, 01/09/21 12:01:00 EDT, Height, 68.9, kg, 12/21/20 8:52:00 EDT, Dry Weight Start Date: 01/09/21 Status: OrderedHYDROmorphone 4 mg oral tablet 1 tablet = 4 mg, By Mouth, Every 8 hours, # 84 tablet, 0 Refills, Maintenance, 01/16/21 10:45:00 EDT, Tablet, [facility] # 50, [...] 5 Refills, Maintenance, 10/10/20 7:25:00 EDT, Tablet, [facility] # 50, 149.9, cm, 08/28/20 14:48:00 EST, Height, 68.9, kg, 07/12/19 14:56:00 EST, Dry Weight Start Date: 10/10/20 Status: OrderedoxyCODONE 5 mg oral tablet 5 mg, 1, tablet, By Mouth, Every 6 hours, PRN, # 5 tablet, Refills 0, Tot. Refills 0, Maintenance, Pain , Severe, 12/27/20 9:18:00 EDT, Route to Pharmacy Electronically, [facility], Partial fill upon patient request [...] 01/22/21 11:44:00 EDT, Route to Pharmacy Electronically, [facility] # [facility], 149, cm, 01/18/21 11:04:00 EDT, Height, 68.9, kg, 12/21/20 8:52:00 EDT, Dry Weight Start Date: 01/22/21 Status: Orderedrosuvastatin 10 mg oral capsule 1 capsule = 10 mg, By Mouth, Daily, # 30 capsule, 11 Refills, Maintenance, 08/29/20 15:01:00 EST, Capsule, [facility] # 50, Partial fill upon patient request if the prescription is for a schedule II opioid drug., 149.9, cm, 08/28/20 14:48:00 EST,... Start Date: 08/29/20 Status: OrderedTylenol 325 mg oral tablet 650 mg, 2, tablet, By Mouth, Every 4 hours, PRN, # 24 tablet, Refills 0, Tot. Refills 0, Maintenance, Pain , Mild, 12/27/20 9:18:00 EDT, Route to Pharmacy Electronically, [facility], Partial fill upon patient request if the prescription... Start Date: 12/27/20 Status: OrderedVentolin HFA 108 mcg/inh inhalation aerosol with adapter 2 puffs, Inhalation, 4 times a day, PRN for wheezing, # 1 each, 1 Refills, Maintenance, 01/18/21 11:08:00 EDT, Aerosol, [facility] # [facility], 149, cm, 01/18/21 [...] breast cancer Left, IDC, Active pT1c pN0, ER/MD positive, Her-2/angelito negative, 2012(Confirmed)22, 23 History of [...] Active use(Confirmed) Vitamin D Deficiency(Confirmed) Active 1per gastroenterology;gngzfrr0Dkinucsx to gastroenterology no-show for rfmibaulvxc9fqb0 40%4chronic kmewghsuwp9MWJL:2 low zfmak2NWDW test done,[employer] CHIEF mrxwnwv9uloriw repeat sdx; injections,fentanyl,morphine,oxycodone er8Dr Oh no surgery re neck,qeml7xnb Dr King,yesterday NO SURGERY, rx corsett,pool10 evaluated by two neurosurgeons,pain fyxuxdpz04fwfwn fo75Tbujnp 24-hour urine olfmcyfm75WVKR increased alpha2 fwkebxkpi55lhatol iron,ferrritin,cderloplasmin; neg HEP a,B,U55svzaqpi Oswestry Disability Index: 48% ( severe disability ) on 04/15/16; updated [place] Back Pain Scale:44 on 04/15/16; updated [place]: 7 on 04/15/1616Initial Oswestry Disability Index: 48% ( severe disability ) on 11/24/14; initial [place] Back Pain Scale: 48 on 11/24/14; initial [place]: 5 on 11/24/1516egd . Bilateral common femoral artery endarterectomy. 3. Left common femoral artery patch angioplasty with PTFE. 4. 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 CURRENT THERAPY: Tamoxifen started in 11/17/14, prior anastrozole 11/2012- 09/2014, zoledronic acid, received 02/2015 and 08/2015.05hakqn70Gspsptlomsuvcd Summary Successful drug eluting stenting of the proximal LAD coronary artery with a 3.5X15 mm plus 3.0X8 mm Xience Alpine stents as described above. The second stent was needed to cover distal edge of th efirst stent in an overlapping fashion. 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
--- OUTSIDE RECORDS SUMMARY | 2022-06-11 12:43 | XMS_ITS | Continuity of Care Document ---
:1945 Author Organization [facility] Address [address] [place] [address]- Care Team Providers Name Role Phone Christina BAZAN, [place] Dao Primary Care Physician [facility]20 - 12/02/20 [facility] [address] [place] [address]- Allergies, Adverse Reactions, Alerts Substance Reaction Severity Status spironolactone1 Active lisinopril2 Active atorvastatin3 Active amLODIPine4 Active 9ueivz9bwhmvmo wemcpgpp8jtdi4ibgab Immunizations Given and Recorded Vaccine Date Status [...] P atient Refuses 1Result Comment: [05/27/2017] [facility] [id number]/Late Reason: Wan to Standard Admin Cgijp6Aduwq Note: #24Admin Note: historical data Medications Aspirin [...] 14:56:00 EDT, Route to Pharmacy Electronically, [facility] # [facility], Partial fill upon patient request if the prescription is for a schedule II opioid feliberto... Start Date: 10/26/20 Status: OrderedFlovent HFA 110 mcg/inh inhalation aerosol 2 puffs, Inhalation, 2 times a day, # 1 each, 5 Refills, Maintenance, 08/22/20 18:56:00 EST, Aerosol, [facility] # [facility], 149.9, cm, 06/07/20 11:48:00 EST, Height, 68.9, kg, 07/12/19 14:56:00 EST, DryWeight Start Date: 08/22/20 Status: OrderedFLUoxetine 40 mg oral capsule 1 capsule = 40 mg, By Mouth, Daily, # 30 capsule, 5 Refills, Maintenance, 08/13/20 10:39:00 EST, Capsule, [facility] # [facility], [...] 0 Refills, Maintenance, 11/29/20 14:56:00 EDT, Tablet, [facility] # [facility], partial fill upon request, 12/05/20, 149.9, cm, 11/13/20 11:13:00 EDT,Height, 68.9, kg, 07/12/19 14:56:00 EST, Dry Weight Start Date: 11/29/20 Stop Date: 12/27/20 Status: Orderedlevothyroxine 125 mcg (0.125 mg) oral tablet 1 tablet = 125 mcg, By Mouth, Daily, # 30 tablet, 5 Refills, Maintenance, 10/10/20 7:25:00 EDT, Tablet, [facility] # [facility], 149.9, cm, 08/28/20 14:48:00 EST, Height, 68.9, kg, 07/12/19 14:56:00 EST, Dry Weight Start Date: 10/10/20 Status: Orderedmetoprolol 25 mg oral tablet 25 mg, 1, tablet, By Mouth, 2 times a day, # 60 tablet, Refills 2, Tot. Refills 2, Maintenance, 11/13/20 16:41:00 EDT, Route to Pharmacy Electronically, [facility] # [facility], 149.9, cm, 11/13/20 11:13:00 EDT, Height, 68.9, kg, 07/12/19 14:56:00 EST, Dr... Start Date: 11/13/20 Status: OrderedPriLOSEC OTC 20 mg oral delayed release tablet 1 tablet = 20 mg, By Mouth, Daily, # 90 tablet, 0 Refills, Maintenance, 11/06/20 16:02:00 EDT, CR Tablet, [facility] # [facility], 149.9, cm, 10/26/20 14:49:00 EDT, Height, 68.9, kg, 07/12/19 14:56:00 EST,Dry Weight Start Date: 11/06/20 Status: Orderedrosuvastatin 10 mg oral capsule 1 capsule = 10 mg, By Mouth, Daily, # 30 capsule, 11 Refills, Maintenance, 08/29/20 15:01:00 EST, Capsule, [facility] # [facility], Partial fill upon patient request if the prescription is for a schedule II opioid drug., 149.9, cm, 08/28/20 14:48:00 EST,... Start Date: 08/29/20 Status: OrderedVentolin HFA 108 mcg/inh inhalation aerosol with adapter 2 puffs, Inhalation, 4 times a day, PRN for wheezing, # 1 each, 5 Refills, Maintenance, 10/18/20 9:01:00 EDT, Aerosol, [facility] # [facility], [...] Active use(Confirmed) Vitamin D Deficiency(Confirmed) Active 1per gastroenterology;mgcizib1Sabpsimw to gastroenterology no-show for mtcrygnoueq9pqg0 40%4chronic yybnbtuekp6TUEO:2 low nboak8KATT test done,[employer] xvktmlm4hpyemt repeat sdx; injections,fentanyl,morphine,oxycodone er8Dr Oh no surgery re neck,juvm9xvq Dr King,yesterday NO SURGERY, rx corsett,pool10 evaluated by two neurosurgeons,pain pjjsnklp02bxpik gg07Jxhfjn 24-hour urine vrvjvjfz84QTZE increased alpha2 ggzzisoib07docrau iron,ferrritin,cderloplasmin; neg HEP a,B,B00norzrfd Oswestry Disability Index: 48% ( severe disability ) on 04/15/16; updated [place] Back Pain Scale:44 on 04/15/16; updated [place]: 7 on 04/15/1616Initial Oswestry Disability Index: 48% ( severe disability ) on 11/24/14; initial [place] Back Pain Scale: 48 on 11/24/14; initial [place]: 5 on 11/24/1516egd . Bilateral common femoral artery endarterectomy. 3. Left common femoral artery patch angioplasty with PTFE. 4. 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 CURRENT THERAPY: Tamoxifen started in 11/17/14, prior anastrozole 11/2012- 09/2014, zoledronic acid, received 02/2015 and 08/2015.41iybup48Gqpxdwbiubxsac Summary Successful drug eluting stenting of the proximal LAD coronary artery with a 3.5X15 mm plus 3.0X8 mm Xience Alpine stents as described above. The second stent was needed to cover distal edge of th efirst stent in an overlapping fashion. 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
--- OUTSIDE RECORDS SUMMARY | 2022-06-11 12:43 | XMS_ITS | Continuity of Care Document ---
:[address] [facility] Address [address] [place] [address]- Care Team Providers Name Role Phone Christina BAZAN, Chino Dao Primary Care Physician Encounter [facility] Date(s): 10/14/19 - 10/24/19 [facility] [address] [place] [address]- [facility] Attending Physician: Admtr, Ar8 Allergies, Adverse Reactions, Alerts Substance Reaction Severity Status atorvastatin1 Active amLODIPine2 Active 2fove7ztmoj Immunizations Given and Recorded Vaccine Date Status [...] Given P atient Refuses 1Result Comment: [05/27/2017] [facility] [id number]/Late Reason: Wan to Standard Admin [id number] Note: #24Admin Note: historical data Medications Aspirin = 81 mg, By Mouth, Daily, 0 Refills, Maintenance Start Date: 12/26/11 Status: OrderedBevespi Aerosphere 9 mcg-4.8 mcg/inh inhalation aerosol 2 puffs, Inhalation, 2 times a day, 4 by 28 doses lot [id number] 05-14, # 1 Doses, 11 Refills, Maintenance, 02/12/19 10:52:38 EDT, 2 puffs Inhalation 2 times a day,Instr:4 by 28 doses; lot [id number] 05-14 Start Date: 02/12/19 Status: Orderedcalcium (as [...] [facility] # [facility], 149.9, cm, 10/14/19 [...] Maintenance, 10/05/19 11:47:00 EDT, Tablet, [facility] # 50, partial fill upon request, 10/12/19, 149.9, cm, 10/01/19 10:42:00 EST,Height, 68.9, kg, 07/12/19 14:56:00 EST, Dry Weight Start Date: 10/05/19 Stop Date: 11/02/19 Status: Orderedlevothyroxine 125 mcg (0.125 mg) oral tablet 1 tablet = 125 mcg, By Mouth, Daily, # 30 tablet, 5 Refills, Maintenance, 10/18/19 14:04:00 EDT, Tablet, [facility] # 50, 149.9, cm, 10/14/19 14:23:00 EDT, Height, 68.9, kg, 07/12/19 14:56:00 EST, Dry Weight Start Date: 10/18/19 Status: Orderedmetoprolol 25 mg oral tablet 25 mg, 1, tablet, By Mouth, 2 times a day, # 60 tablet, Refills 5, Tot. Refills 5, Maintenance, 08/16/19 11:35:00 EST, Route to Pharmacy Electronically, [facility] # 50, 149.9, cm, 07/19/19 9:45:00EST, Height, 68.9, kg, 07/12/19 14:56:00 EST, Dry... Start Date: 08/16/19 Status: OrderedPlavix 75 mg oral tablet 75 mg, 1, tablet, By Mouth, Daily in AM, # 30 tablet, Refills 5, Tot. Refills 5, Maintenance, 08/17/19 8:35:00 EST, Route to Pharmacy Electronically, [facility] # 50, 149.9, cm, 07/19/19 9:45:00 EST, Height, 68.9, kg, 07/12/19 14:56:00 EST, Dry We... Start Date: 08/17/19 Status: Orderedpravastatin 10 mg oral tablet 2 tablet = 20 mg, By Mouth, Daily, # 30 tablet, 5 Refills, Maintenance, 05/11/19 9:20:40 EDT, Tablet, [facility] # 50 Start Date: 05/11/19 Status: OrderedPriLOSEC OTC 20 mg oral delayed release tablet 1 tablet = 20 mg, By Mouth, Daily, # 90 tablet, 1 Refills, Maintenance, 08/17/19 10:42:00 EST, CR Tablet, [facility] # 50, 149.9, cm, 07/19/19 [...] Details, Route to Pharmacy Electronically, [facility] # 50, 149.9, cm, 10/14/19 14:23:00 EDT, Height, 68.9, kg, 1... Start Date: 10/15/19 Status: OrderedVentolin HFA 108 mcg/inh inhalation aerosol with adapter 2 puffs, Inhalation, 4 times a day, PRN for wheezing, # 1 each, 5 Refills, Maintenance, 10/11/19 21:30:00 EDT, Aerosol, [facility] # 50, 149.9, cm, 10/01/19 [...] Active use(Confirmed) Vitamin D Deficiency(Confirmed) Active 1per gastroenterology;ojciazm2Wnnmulpm to gastroenterology no-show for kzyiqhmofed9aho3 40%4chronic mromqaeejx9PHQG:2 low pyhwn3LYSQ test done,[employer] nztejro6tpgmfb repeat sdx; injections,fentanyl,morphine,oxycodone er8Dr Oh no surgery re neck,ispy9dvn Dr King,yesterday NO SURGERY, rx corsett,pool10 evaluated by two neurosurgeons,pain decscwrc50taeun xv29Lmhnja 24-hour urine ubddqzyx45GKIK increased alpha2 tkqytryaa30wzhezz iron,ferrritin,cderloplasmin; neg HEP a,B,I67oqfcajy Oswestry Disability Index: 48% ( severe disability ) on 04/15/16; updated [place] Back Pain Scale:44 on 04/15/16; updated [place]: 7 on 04/15/1616Initial Oswestry Disability Index: 48% ( severe disability ) on 11/24/14; initial [place] Back Pain Scale: 48 on 11/24/14; initial [place]: 5 on 11/24/1516egd . Bilateral common femoral artery endarterectomy. 3. Left common femoral artery patch angioplasty with PTFE. 4. 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 CURRENT THERAPY: Tamoxifen started in 11/17/14, prior anastrozole 11/2012- 09/2014, zoledronic acid, received 02/2015 and 08/2015.27tsrrp06Ckcwtanxvlerwq Summary Successful drug eluting stenting of the proximal LAD coronary artery with a 3.5X15 mm plus 3.0X8 mm Xience Alpine stents as described above. The second stent was needed to cover distal edge of th efirst stent in an overlapping fashion. The stents were post-dilated using a 3.5 mm non-compliant balloon.25 now hyperthyroid,exopthalmous;Dr MurphySmgfyn15cdbynvz pre diabetes increased risk kpjfbzsd89esubxt71hq stable;recheck 12 asuldo98gkhdv lung nodules on neck CT recheck 6 ptbrri90FUS5e gnb98ATj3 four low vfcff02lvtj normal,b12 low jkugge[address] gez11lscqxes D deficiency;correcting Procedures Procedure Date Related Diagnosis [...] canal and contents, lumbar; with contrast material(s)8 Upper gastrointestinal endoscopy 09/23/06 Completed including esophagus, stomach, and either the duodenum and/or jejunum as appropriate; diagnostic, with or without collection of specimen(s) by brushing or washing (separate procedure)9 Dual-energy X-ray absorptiometry 07/17/06 Completed (DXA), bone density study, 1 or more sites; axial skeleton (eg, hips, pelvis, spine)10 Colonoscopy, flexible, proximal to 10/07/05 Completed splenic flexure; diagnostic, with or without collection of specimen(s) by brushing or washing, with or without colon decompression (separate procedure)11 Radiologic examination, chest, 2 07/08/05 Completed views, frontal and lateral;12 Electrocardiogram, routine ECG with at 12/04/04 Completed least 12 leads; with interpretation and 11. Multilevel degenerative changes progressive from 03/28/2012. 2. Spondylolysis L5 with spondylolisthesis L5-S1. 3. Mild scoliosis. 4. 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
--- OUTSIDE RECORDS SUMMARY | 2022-06-11 12:43 | XMS_ITS | Continuity of Care Document ---
:1945 Author Organization [facility] Address [address] [place] [address]- Care Team Providers Name Role Phone Christina BAZAN, Chino Dao Primary Care Physician Encounter [facility] [place] Date(s): 03/26/21 - 04/25/21 [facility] [address] [place] [address]- Attending Physician: Saurabh Coronado Admitting Physician: Saurabh Coronado Referring Physician: AdmtrSaurabh Allergies, Adverse Reactions, Alerts Substance Reaction Severity Status spironolactone1 Active lisinopril2 Active atorvastatin3 Active amLODIPine4 Active 1zanzw8yzjuvrf rgwgfxyu7ilmg9xvipt Immunizations Given and Recorded Vaccine Date Status [...] [facility] [id number]/Late Reason: Wan to Standard Admin Hqmxz5Onphp Note: #24Admin Note: historical data Medications aspirin [...] EDT, Route to Pharmacy Electronically, [facility] # 50, 149, cm, 03/29/21 11:00:00EDT, Height, 68.9, kg, 12/21/20 8:52:00 EDT, Dry... Start Date: 04/25/21 Status: Orderedchlorthalidone 25 mg oral tablet See Instructions, TAKE ONE TABLET BY MOUTH EVERY DAY, # 30 tablet, Refills 5, Tot. Refills 5, Maintenance, 02/20/21 1:48:00 EDT, Instructions Replace Required Details, Route to Pharmacy Electronically,[facility] # 50, 149, cm, 02/09/21 10:03:00 E... Start Date: 02/20/21 Status: OrderedcloNIDine 0.1 mg oral tablet 0.1 mg, 1, tablet, By Mouth, 2 times a day, # 60 tablet, Refills 6, Tot. Refills 6, Maintenance, 04/13/21 5:37:00 EDT, Route to Pharmacy Electronically, [facility] # 50, Partial fill upon patient request if the prescription is for a schedule II op... Start Date: 04/13/21 Status: Orderedclopidogrel 75 mg oral tablet 1, tablet, By Mouth, Daily, # 90 tablet, Refills 0, Route to Pharmacy Electronically, [facility], 149, cm, 03/29/21 11:00:00 [...] Soft Stop, 03/27/21 10:17:00 EDT, [facility] # 50, Partial fill upon patient request if the prescription is for a schedule II opioid drug., 149, cm, 03/27/21 10:16:00 EDT, Height, 68.9, k... Start Date: 03/27/21 Status: OrderedFlovent HFA 110 mcg/inh inhalation aerosol See Instructions, INHALE 2 PUFFS TWO TIMES A DAY, # 12 Gm, 5 Refills, Maintenance, [facility] # 50, 149, cm, 02/09/21 10:03:00 EDT, Height, 68.9, kg, 12/21/20 8:52:00 EDT, Dry Weight Start Date: 02/09/21 Status: OrderedFLUoxetine 40 mg oral capsule See Instructions, TAKE 1 CAPSULE BY MOUTH DAILY., # 30 capsule, 5 Refills, Maintenance, [facility] # 50, 149, cm, 02/09/21 10:03:00 EDT, Height, 68.9, kg, 12/21/20 8:52:00 EDT, Dry Weight Start Date: 02/12/21 Status: Orderedhydrocortisone 2.5% topical cream 1 application, Topically, 3 times a day, # 30 Gm, 1 Refills, Maintenance, 01/09/21 12:15:00 EDT, Cream, [facility] # 50, 1 application Topically 3 times a day, 149.9, cm, 01/09/21 12:01:00 EDT, Height, 68.9, kg, 12/21/20 8:52:00 EDT, Dry Weight Start Date: 01/09/21 Status: OrderedHYDROmorphone 4 mg oral tablet 1 tablet = 4 mg, By Mouth, Every 8 hours, # 84 tablet, 0 Refills, Maintenance, 04/17/21 12:57:00 EDT, Tablet, [facility] # 50, partial fill upon [...] EVERY DAY, # 30 tablet, 5 Refills, [facility], 149, cm, 03/29/21 11:00:00 EDT, Height, 68.9, kg, 12/21/20 8:52:00 EDT, Dry Weight Start Date: 04/16/21 Status: OrderedoxyCODONE 5 mg oral tablet 5 mg, 1, tablet, By Mouth, Every 6 hours, PRN, # 5 tablet, Refills 0, Tot. Refills 0, Maintenance, Pain , Severe, 12/27/20 9:18:00 EDT, Route to Pharmacy Electronically, [facility], Partial fill upon patient request if [...] Maintenance, 08/29/20 15:01:00 EST, Capsule, [facility] # 50, Partial fill upon [...] EDT, Route to Pharmacy Electronically, [facility], Partial fill upon patient request if the prescription... Start Date: 12/27/20 Status: OrderedVentolin HFA 108 mcg/inh inhalation aerosol with adapter See Instructions, INHALE 2 PUFFS FOUR TIMES A DAY NEEDED FOR WHEEZING, # 18 Gm, 2 Refills, Maintenance, [facility] # [facility], 149, cm, 02/09/21 [...] breast cancer Left, IDC, Active pT1c pN0, ER/DE positive, Her-2/angelito negative, 2012(Confirmed)22, 23 History of [...] Active use(Confirmed) Vitamin D Deficiency(Confirmed) Active 1per gastroenterology;jkkqxzw3Qtwssios to gastroenterology no-show for nrjvmisfspk8uxa9 40%4chronic csijobeocm2BTPP:2 low nraml6BWPV test done,[employer] COL[employer] baagbsi7qlppao repeat sdx; injections,fentanyl,morphine,oxycodone er8Dr Oh no surgery re neck,icev2tkk Dr King,yesterday NO SURGERY, rx corsett,pool10 evaluated by two neurosurgeons,pain wbmqrvmu13yrdgz io56Hqgzlo 24-hour urine oqdejvkq30AHPF increased alpha2 hwelctxbl10tklueu iron,ferrritin,cderloplasmin; neg HEP a,B,T01spybmeg Oswestry Disability Index: 48% ( severe disability ) on 04/15/16; updated [place] Back Pain Scale:44 on 04/15/16; updated [place]: 7 on 6Initial Oswestry Disability Index: 48% ( severe disability ) on 11/24/14; initial [place] Back Pain Scale: 48 on 11/24/14; initial [place]: 5 on 7egd . Bilateral common femoral artery endarterectomy. 3. Left common femoral artery patch angioplasty with PTFE. 4. 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 CURRENT THERAPY: Tamoxifen started in 11/17/14, prior anastrozole 11/2012- 09/2014, zoledronic acid, received 02/2015 and 08/2015.20qgleb58Jhxptxlwdamegf Summary Successful drug eluting stenting of the proximal LAD coronary artery with a 3.5X15 mm plus 3.0X8 mm Xience Alpine stents as described above. The second stent was needed to cover distal edge of th efirst stent in an overlapping fashion. 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
--- OUTSIDE RECORDS SUMMARY | 2022-06-11 12:43 | XMS_ITS | Continuity of Care Document ---
:1945 Author Organization [facility] [employer] [facility] p Address [address] [place] [address], [address] [place] [id number]- Care Team Providers Name Role Phone Chino Vasquez MD Primary Care Physician Encounter [facility] Date(s): 10/25/21 - 12/05/21 [facility] [facility] [address] [place] [address], [address] [place] [id number]- Attending Physician: Xenia Hart MD Referring Physician: Chino Vasquez MD Allergies, Adverse Reactions, Alerts Substance Reaction Severity Status spironolactone1 Active lisinopril2 Active atorvastatin3 Active thiazide diuretics4 Active amLODIPine5 Active 4camfj3fqoywtf lfngoeqi2tyqf8vuzhezigpukl9stpxe Immunizations Given and Recorded Vaccine Date Status [...] Not Given P atient Refuses 1Result Comment: [facility]: [id number] Comment: [facility]: [id number] Comment: [facility]: [id number] Comment: [05/27/2017] [facility] [id number] Early/Late Reason: Wan to Standard Admin Nhgzg2Bndrp Note: #27Admin Note: historical data Medications aspirin [...] tablet, Refills 0, Route to Pharmacy Electronically, [facility] # 50, 149, cm, 10/16/21 14:48:00 EDT, Height, 68.9, kg, 12/21/20 8:52:00 EDT, Dry Weight Start Date: 10/17/21 Status: OrderedcloNIDine 0.1 mg oral tablet See Instructions, TAKE ONE TABLET BY MOUTH TWICE A DAY, # 60 tablet, Refills 5, Instructions ReplaceRequired Details, Route to Pharmacy Electronically, [facility] [...] 30 tablet, 5 Refills, 11/12/21 9:33:00 EDT, [facility] # [facility], 149, cm, 10/18/21 12:13:00 EDT, Height, 68.9, kg, 12/21/20 8:52:00 EDT, Dry Weight Start Date: 11/12/21 Status: OrderedFLUoxetine 40 mg oral capsule See Instructions, TAKE 1 CAPSULE BY MOUTH DAILY., # 30 capsule, 5 Refills, 08/15/21 13:23:00 EST, [facility] # [facility], 149, [...] hours, # 84 tablet, 0 Refills, Maintenance, 12/04/21 8:56:00 EDT,Tablet, [facility] # 50, partial fill upon request, 12/10/21, 149, cm, 11/19/21 14:57:00 EDT, Height, 68.5, kg, 11/19/21 15:42:00 EDT, Dry Weight Start Date: 12/04/21 Stop Date: 01/01/22 Status: OrderedImodium A-D 2 mg, By Mouth, Refills 0, Maintenance, 01/09/21 15:24:00 EDT, Partial fill upon patient request if the prescription is for a schedule II opioid drug. Start Date: 01/09/21 Status: Orderedlevothyroxine 125 mcg (0.125 mg) oral tablet See Instructions, TAKE ONE TABLET BY MOUTH EVERY DAY, # 30 tablet, 5 Refills, 10/11/21 14:05:00 EDT,[facility], 149, cm, [...] 11 Refills, Maintenance, 08/15/21 13:23:00 EST, Capsule, [facility], Partial [...] EDT, Route to Pharmacy Electronically, [facility], Partial fill upon patient request if the prescription... Start Date: 12/27/20 Status: OrderedVentolin HFA 108 mcg/inh inhalation aerosol with adapter See Instructions, INHALE 2 PUFFS FOUR TIMES A DAY NEEDED FOR WHEEZING, # 18 Gm, 1 Refills, Maintenance, 10/18/21 11:44:00 EDT, [facility] # [facility], 149, cm, 10/18/21 11:23:00 [...] disease(Confirmed) Active Torn rotator cuff rt orthoi(Confirmed) 7/19/19 Active Diverticulosis, 07/12/19 Active sigmoid;colonoscopy(Confirmed) Essential familial [...] breast cancer Left, IDC, Active pT1c pN0, ER/FL positive, Her-2/angelito negative, 2012(Confirmed)22, 23 History of [...] 10/18/21 Active Vitamin D Deficiency(Confirmed) Active 1per gastroenterology;jspkqab8Aqhrlwzs to gastroenterology no-show for lyftriwutgd0hnr2 40%4chronic tyreoujqdo8ZGVI:2 low gtkkl6PGSA test done,[employer] llqyorv9pwqvlk repeat sdx; injections,fentanyl,morphine,oxycodone er8Dr Oh no surgery re neck,bakq7lob Dr King,yesterday NO SURGERY, rx corsett,pool10 evaluated by two neurosurgeons,pain kgfuhztm44fxnqn bg25Llckgs 24-hour urine fznvbffg41SKYC increased alpha2 alceapnaw95plftkk iron,ferrritin,cderloplasmin; neg HEP a,B,Y09xwwalzb Oswestry Disability Index: 48% ( severe disability ) on 04/15/16; updated [place] Back Pain Scale:44 on 04/15/16; updated [place]: 7 on 04/15/1616Initial [place] Disability Index: 48% ( severe disability ) on 11/24/14; initial [place] Back Pain Scale: 48 on 11/24/14; initial [place]: 5 on 11/24/1516egd . Bilateral common femoral artery endarterectomy. 3. Left common femoral artery patch angioplasty with PTFE. 4. 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 CURRENT THERAPY: Tamoxifen started in 11/17/14, prior anastrozole 11/2012- 09/2014, zoledronic acid, received 02/2015 and 08/2015.34dutwb58Lqisnodvtlpbta Summary Successful drug eluting stenting of the proximal LAD coronary artery with a 3.5X15 mm plus 3.0X8 mm Xience Alpine stents as described above. The second stent was needed to cover distal edge of th efirst stent in an overlapping fashion. 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
--- OUTSIDE RECORDS SUMMARY | 2022-06-11 12:43 | XMS_ITS | Continuity of Care Document ---
:1945 Author Organization [facility] Address [address] [place] [address]- Care Team Providers Name Role Phone Chino Vasquez MD Primary Care Physician [place] [facility] [place] 12/23/19 - 12/30/19 [facility] [address] [place] [address]- [facility] Encounter Diagnosis Medicare annual wellness visit, subsequent (Discharge Diagnosis) - 12/22/19 Benign Essential Hypertension (Discharge Diagnosis) - 12/23/19 Essential familial hyperlipidemia (Discharge Diagnosis) - 12/23/19 Depression, major (Discharge Diagnosis) - 12/23/19 Chronic renal disease, stage III (Discharge Diagnosis) - 12/23/19 Hypothyroidism following radioiodine therapy (Discharge Diagnosis) - 12/23/19 Attending Physician: Chino Vasquez MD Allergies, Adverse Reactions, Alerts Substance Reaction Severity Status atorvastatin1 Active amLODIPine2 Active 9amhs6okelw Immunizations Given and Recorded Vaccine Date Status [...] Given P atient Refuses 1Result Comment: [05/27/2017] [facility] [id number]/Late Reason: Wan to Standard Admin Hlwow2Bsipb Note: #24Admin Note: historical data Medications Aspirin = 81 mg, By Mouth, Daily, 0 Refills, Maintenance Start Date: 12/26/11 Status: OrderedBevespi Aerosphere 9 mcg-4.8 mcg/inh inhalation aerosol 2 puffs, Inhalation, 2 times a day, 4 by 28 doses lot [id number] 05-14, # 1 Doses, 11 Refills, Maintenance, 02/12/19 10:52:38 EDT, 2 puffs Inhalation 2 times a day,Instr:4 by 28 doses; lot [id number] 05-14 Start Date: 02/12/19 Status: Orderedcalcium (as [...] tablet, Refills 1, Tot. Refills 1, Maintenance, 12/06/19 14:53:00 EDT, Route to Pharmacy Electronically, [facility] # [facility], 149.9, cm, 10/14/19 14:23:00 EDT, Height, 68.9, kg, 07/12/19 14:56:00 EST, Dry Weight Start Date: 12/06/19 Status: Orderedhydrocortisone 2.5% topical cream 1 application, Topically, 3 times a day, # 30 Gm, 3 Refills, Maintenance, 08/10/18 11:58:13 EST, Cream, 1 application Topically 3 times a day Start Date: 08/10/18 Status: OrderedHYDROmorphone 4 mg oral tablet 1 tablet = 4 mg, By Mouth, Every 8 hours, # 84 tablet, 0 Refills, Maintenance, 12/28/19 10:55:00 EDT, Tablet, [facility] # 50, partial fill upon request, 01/04/20, 149.9, cm, 12/23/19 9:47:00 EDT, Height, 68.9, kg, 07/12/19 14:56:00 EST, Dry Weight Start Date: 12/28/19 Stop Date: 01/25/20 Status: Orderedlevothyroxine 125 mcg (0.125 mg) oral tablet 1 tablet = 125 mcg, By Mouth, Daily, # 30 tablet, 5 Refills, Maintenance, 10/18/19 14:04:00 EDT, Tablet, [facility] # 50, 149.9, cm, 10/14/19 14:23:00 EDT, Height, 68.9, kg, 07/12/19 14:56:00 EST, Dry Weight Start Date: 10/18/19 Status: Orderedmetoprolol 25 mg oral tablet 25 mg, 1, tablet, By Mouth, 2 times a day, # 60 tablet, Refills 5, Tot. Refills 5, Maintenance, 08/16/19 11:35:00 EST, Route to Pharmacy Electronically, [facility] # [facility], 149.9, cm, 07/19/19 9:45:00EST, Height, 68.9, kg, 07/12/19 14:56:00 EST, Dry... Start Date: 08/16/19 Status: OrderedPlavix 75 mg oral tablet 75 mg, 1, tablet, By Mouth, Daily in AM, # 30 tablet, Refills 5, Tot. Refills 5, Maintenance, 08/17/19 8:35:00 EST, Route to Pharmacy Electronically, [facility] # 50, 149.9, cm, 07/19/19 9:45:00 EST, Height, 68.9, kg, 07/12/19 14:56:00 EST, Dry We... Start Date: 08/17/19 Status: Orderedpravastatin 20 mg oral tablet 20 mg, 1, tablet, By Mouth, Daily, # 30 tablet, Refills 5, Tot. Refills 5, Maintenance, 11/02/19 10:04:00 EDT, Route to Pharmacy Electronically, [facility] # 50, 149.9, cm, 10/14/19 14:23:00 EDT, Height, 68.9, kg, 07/12/19 14:56:00 EST, Dry Weight Start Date: 11/02/19 Status: OrderedPriLOSEC OTC 20 mg oral delayed release tablet 1 tablet = 20 mg, By Mouth, Daily, # 90 tablet, 1 Refills, Maintenance, 08/17/19 10:42:00 EST, CR Tablet, [facility] # 50, 149.9, cm, 07/19/19 [...] Replace Required Details, Route to Pharmacy Electronically, [facility] # 50, 149.9, cm, 10/14/19 14:23:00 EDT, Height, 68.9, kg, 1... Start Date: 10/15/19 Status: OrderedVentolin HFA 108 mcg/inh inhalation aerosol with adapter 2 puffs, Inhalation, 4 times a day, PRN for wheezing, # 1 each, 4 Refills, Maintenance, 11/16/19 13:50:00 EDT, Aerosol, [facility] # 50, Original prescription sent on 10/11/19 1 with 5 refills, 149.9, cm, 10/14/19 14:23:00 EDT, Height, 68.9, kg, 12... 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 bauztnc3odohfq repeat sdx; injections,fentanyl,morphine,oxycodone er8Dr Oh no surgery re neck,cebm1yif Dr King,yesterday NO SURGERY, rx corsett,pool10 evaluated by two neurosurgeons,pain ozrukxsh10piinc bb78Sjjmqu 24-hour urine rfmkestz55JYML increased alpha2 iasiakuug56fbdabk iron,ferrritin,cderloplasmin; neg HEP a,B,R06ijuehsr Oswestry Disability Index: 48% ( severe disability ) on 04/15/16; updated [place] Back Pain Scale:44 on 04/15/16; updated [place]: 7 on 04/15/1616Initial Oswestry Disability Index: 48% ( severe disability ) on 11/24/14; initial [place] Back Pain Scale: 48 on 11/24/14; initial [place]: 5 on 11/24/1516egd . Bilateral common femoral artery endarterectomy. 3. Left common femoral artery patch angioplasty with PTFE. 4. 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 CURRENT THERAPY: Tamoxifen started in 11/17/14, prior anastrozole 11/2012- 09/2014, zoledronic acid, received 02/2015 and 08/2015.26zydrp68Yuhdrsrbulqpad Summary Successful drug eluting stenting of the proximal LAD coronary artery with a 3.5X15 mm plus 3.0X8 mm Xience Alpine stents as described above. The second stent was needed to cover distal edge of th efirst stent in an overlapping fashion. The stents were post-dilated using a 3.5 mm non-compliant balloon.25 now hyperthyroid,exopthalmous;Dr MurphyVpmcqb55qvczsry pre diabetes increased risk nevrgrco73nsshyv54pr stable;recheck 12 asnabv24wmins lung nodules on neck CT recheck 6 mybpra24MMM0x eiq44TPv2 four low pwqjr90bgfk normal,b12 low qoknwk29 fit terst ftx46apepuhd D deficiency;correcting Diagnosis Diagnosis Type Effective Dates Health Clinical Infor mant Status Service Medicare annual Discharge 12/22/19 wellness visit, Diagnosis subsequent Benign Essential Discharge 12/23/19 Hypertension Diagnosis Essential familial Discharge 12/23/19 hyperlipidemia Diagnosis Depression, major Discharge 12/23/19 Diagnosis Chronic renal Discharge 12/23/19 disease, stage III Diagnosis Hypothyroidism Discharge 12/23/19 following Diagnosis radioiodine therapy Vital Signs Most recent to oldest [Reference Range]: 1 2 Height 149.9 cm 149.9 cm (12/23/19 9:47 AM) (12/23/19 9:25 AM) Weight 71.4 kg (12/23/19:25 AM) Oxygen Saturation [94-100 %] 97 % (12/23/19:25 AM) Pulse Rate [55-90 bpm] 84 bpm (12/23/19 9:25 AM) Body Mass Index [18.5-24.99] 31.78 *>HHI* (12/23/19:25 AM) Blood Pressure [90-138/55-84 mm Hg] 122/80 mm Hg 160/ 62 mm Hg (12/23/19 9:47 AM) *H* (12/23/19:25 AM) Respiratory Rate [16-30 br/min] 20 br/min (12/23/19:25 AM) Temperature [96.8-100.4 DegF] 99.7 DegF (12/23/19 9:25 AM) Blood pressure sites Arm, left Arm, right (12/23/19 9:47 AM) (12/23/19:25 AM) Temperature Route Oral (12/23/19 9:25 AM) Social History Social History Type Response 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
--- OUTSIDE RECORDS SUMMARY | 2022-06-11 12:44 | XMS_ITS | Continuity of Care Document ---
:1945 Author Organization [facility] Address [address] [place] [address]- Care Team Providers Name Role Phone Chino Vasquez MD Primary Care Physician Encounter [facility] Date(s): 07/19/19 - 07/19/[address] [address]- [facility] Attending Physician: Chino Vasquez MD Allergies, [...] Given P atient Refuses 1Result Comment: [05/27/2017] [facility] [id number]/Late Reason: Wan to Standard Admin Dvdtv6Uxbgb Note: #24Admin Note: historical data Medications amLODIPine 10 mg oral tablet 10 mg, 1, tablet, By Mouth, Daily, # 30 tablet, Refills 11, Tot. Refills 11, Maintenance, 08/10/18 11:54:38 EST, Route to Pharmacy Electronically, [id number], [facility] Start Date: 08/10/18 Status: OrderedAspirin = 81 mg, By Mouth, Daily, 0 Refills, Maintenance Start Date: 12/26/11 Status: OrderedBevespi Aerosphere 9 mcg-4.8 mcg/inh inhalation aerosol 2 puffs, Inhalation, 2 times a day, 4 by 28 doses lot [id number] 05-14, # 1 Doses, 11 Refills, Maintenance, 02/12/19 10:52:38 EDT, 2 puffs Inhalation 2 times a day,Instr:4 by 28 doses; lot [id number] 05-14 Start Date: 02/12/19 Status: OrderedFlovent HFA [...] tablet, 0 Refills, Maintenance, 07/13/19 9:03:00 EST,Tablet, [facility] # 50, partial fill [...] 06/14/19 13:25:57 EST, Route to Pharmacy Electronically, [id number], [facility] # [facility] Start Date: 06/14/19 Status: OrderedPlavix 75 mg oral tablet 75 mg, 1, tablet, By Mouth, Daily in AM, # 30 tablet, Refills 5, Tot. 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 irhtgbr3cczbnb repeat sdx; injections,fentanyl,morphine,oxycodone er10Dr Oh no surgery re neck,kskk69rwe Dr King,yesterday NO SURGERY, rx corsett,fyzv05yicogvolw by two neurosurgeons,pain qdzcyquj58zricp yt80Eupqgu 24-hour urine nnvyxeez37RSEV increased alpha2 bevsagykt77nipdqn iron,ferrritin,cderloplasmin; neg HEP a,B,C17 updated Oswestry Disability Index: 48% ( severe disability ) on 04/15/16; updated [place] Back Pain Scale:44 on 04/15/16; updated [place]: 7 on 04/15/1618Initial Oswestry Disability Index: 48% ( severe disability ) on 11/24/14; initial [place] Back Pain Scale: 48 on 11/24/14; initial [place]: 5 on 11/24/1518egd [id number]. Bilateral common femoral artery endarterectomy. 3. Left common femoral artery patch angioplasty with PTFE. 4. Jcap-db-uhkrl femoral-femoral bypass with 8-mm ringed PTFE calmz42xcegklo 20140829in UH22dtwtj01Geiazpfieudato Summary Successful drug eluting stenting of the proximal LAD coronary artery with a 3.5X15 mm plus 3.0X8 mm Xience Alpine stents as described above. The second stent was needed to cover distal edge of th efirst stent in an overlapping fashion. 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
--- OUTSIDE RECORDS SUMMARY | 2022-06-11 12:44 | XMS_ITS | Continuity of Care Document ---
:1945 Author Organization [facility] Address [address] [place] [address]- Care Team Providers Name Role Phone Chino Vasquez MD Primary Care Physician [place] [facility] [place] - 08/31/[address] [address] Attending Physician: Joss Louie MD Admitting Physician: Joss Louie MD Referring Physician: Chino Vasquez MD Allergies, Adverse Reactions, Alerts Substance Reaction Severity Status spironolactone1 Active lisinopril2 Active atorvastatin3 Active thiazide diuretics4 Active amLODIPine5 Active 8lybvw5wljwnca qaovfhzs0cabi7vekyzpstldkb9vfuxk Immunizations Given and Recorded Vaccine Date Status [...] Not Given P atient Refuses 1Result Comment: [facility]: [id number] Comment: [facility]: [phone] Comment: [05/27/2017] [facility] [id number]/Late Reason: Wan to Standard Admin Pvtyf8Qxazm Note: #26Admin Note: historical data Medications aspirin 81 mg oral delayed release tablet 81 mg, 1, tablet, By Mouth, Daily, Maintenance, 12/21/20 16:02:00 EDT, ; Start Date: 12/21/20 Status: Orderedcalcium (as carbonate) 500 mg oral tablet, chewable 1 tablet = 500 mg, Chew, Daily, 0 Refills, Maintenance, 09/21/19 14:07:00 EST, Chew Tablet Start Date: 09/21/19 Status: Orderedcarvedilol 25 mg oral tablet 1, tablet, By Mouth, 2 times a day, # 180 tablet, Refills 0, Route to Pharmacy Electronically, [facility], 149, cm, 06/19/21 9:35:00 EST, Height, 68.9, kg, 12/21/20 8:52:00 EDT, Dry Weight Start Date: 07/17/21 Status: OrderedcloNIDine 0.1 mg oral tablet 0.1 [...] [facility], 149, cm, 07/18/21 14:05:00 EST, Height, 68.9, kg, 12/21/20 8:52:00 EDT, Dry Weight Start Date: 07/23/21 Status: Ordereddocusate sodium 100 mg oral capsule 100 mg, 1, capsule, By Mouth, Daily, PRN, Maintenance, as needed for constipation, 12/21/20 16:05:00EDT, ; Start Date: 12/21/20 Status: Ordereddoxycycline hyclate 100 mg oral capsule 2 capsule = 200 mg, By Mouth, Once, # 2 capsule, 0 Refills, Soft Stop, 03/27/21 10:17:00 EDT, [facility] # [facility], Partial fill upon patient request if the prescription is for a schedule II opioid drug., 149, cm, 03/27/21 10:16:00 EDT, Height, 68.9, k... Start Date: 03/27/21 Status: Orderedezetimibe 10 mg oral tablet See Instructions, TAKE ONE TABLET BY MOUTH EVERY DAY, # 30 tablet, 5 Refills, 08/15/21 13:24:00 EST,[facility], 149, cm, 08/15/21 11:10:00 EST, Height, 68.9, kg, 12/21/20 8:52:00 EDT, Dry Weight Start Date: 08/15/21 Status: OrderedFLUoxetine 40 mg oral capsule See Instructions, TAKE 1 CAPSULE BY MOUTH DAILY., # 30 capsule, 5 Refills, 08/15/21 13:23:00 EST, [facility] # 50, 149, cm, 08/15/21 11:10:00 [...] hours, # 84 tablet, 0 Refills, Maintenance, 08/10/21 16:13:00 EST, Tablet, [facility] # [facility], partial fill upon request, 08/21/21, 149, cm, 07/18/21 14:05:00 EST, Height, 68.9, kg, 12/21/20 8:52:00 EDT, Dry Weight Start Date: 08/10/21 Stop Date: 09/07/21 Status: OrderedImodium A-D 2 mg, By Mouth, Refills 0, Maintenance, 01/09/21 15:24:00 EDT, Partial fill upon patient request if the prescription is for a schedule II opioid drug. Start Date: 01/09/21 Status: Orderedlevothyroxine 125 mcg (0.125 mg) oral tablet See Instructions, TAKE ONE TABLET BY MOUTH EVERY DAY, # 30 tablet, 5 Refills, 08/15/21 13:24:00 EST,[facility], 149, cm, 08/15/21 11:10:00 EST, Height, 68.9, kg, 12/21/20 8:52:00 EDT, Dry Weight Start Date: 08/15/21 Status: Orderedpantoprazole 20 mg oral delayed release tablet 1 tablet, By Mouth, Daily, # 90 tablet, 0 Refills, 149, cm, 07/18/21 14:05:00 EST, Height, 68.9, kg,12/21/20 8:52:00 EDT, Dry Weight Start Date: 07/23/21 Status: Orderedrosuvastatin 10 mg oral capsule 1 capsule = 10 mg, By Mouth, Daily, # 30 capsule, 11 Refills, Maintenance, 08/15/21 13:23:00 EST, Capsule, [facility] # [facility], Partial fill upon patient request if the prescription is for a schedule II opioid drug., 149, cm, 08/15/21 11:10:00 EST, He... Start Date: 08/15/21 Status: OrderedTrelegy Ellipta 200 mcg-62.5 mcg-25 mcg/inh inhalation powder 1 puffs, Inhalation, Daily, at the same time every day, # 1 each, 6 Refills, Maintenance, 08/15/21 13:23:00 EST, Powder, [facility] # 50, Partial fill upon patient request if the prescription is for a schedule II opioid drug., 1 puffs Inhalation D... Start Date: 08/15/21 Status: OrderedTylenol 325 mg oral tablet 650 mg, 2, tablet, By Mouth, Every 4 hours, PRN, # 24 tablet, Refills 0, Tot. Refills 0, Maintenance, Pain , Mild, 12/27/20 9:18:00 EDT, Route to Pharmacy Electronically, [facility], Partial fill upon patient request if the prescription... 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) Active Osteopenia(Confirmed)34 Active PAD (peripheral artery Active disease)stenting 2015(Confirmed) Chronic prescription opiate Active use(Confirmed) Vitamin D Deficiency(Confirmed) Active 1per gastroenterology;ttllgsx7Swutgaif to gastroenterology no-show for tmsjujuxcmn9fbz2 40%4chronic ylbovatfus6RSZV:2 low jcipi4OHZR 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,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 efekljl4ovkotw repeat sdx; injections,fentanyl,morphine,oxycodone er8Dr Oh no surgery re neck,zher4bcz Dr King,yesterday NO SURGERY, rx corsett,pool10 evaluated by two neurosurgeons,pain deoqupdr88gvjbf um98Hmxmzs 24-hour urine uxtihmli31NZSF increased alpha2 odywymoet01propqy iron,ferrritin,cderloplasmin; neg HEP a,B,Z61ufnquwx Oswestry Disability Index: 48% ( severe disability ) on 04/15/16; updated [place] Back Pain Scale:44 on 04/15/16; updated [place]: 7 on 04/15/1616Initial Oswestry Disability Index: 48% ( severe disability ) on 11/24/14; initial [place] Back Pain Scale: 48 on 11/24/14; initial [place]: 5 on 11/24/1516egd . Bilateral common femoral artery endarterectomy. 3. Left common femoral artery patch angioplasty with PTFE. 4. 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 CURRENT THERAPY: Tamoxifen started in 11/17/14, prior anastrozole 11/2012- 09/2014, zoledronic acid, received 02/2015 and 08/2015.04mtogy05Kdtmncnmcrgvbr Summary Successful drug eluting stenting of the proximal LAD coronary artery with a 3.5X15 mm plus 3.0X8 mm Xience Alpine stents as described above. The second stent was needed to cover distal edge of th efirst stent in an overlapping fashion. 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
--- OUTSIDE RECORDS SUMMARY | 2022-06-11 12:44 | XMS_ITS | Continuity of Care Document ---
:1945 Author Organization [facility] Address [address] [place] [address]- Care Team Providers Name Role Phone Christina BAZAN, Chino Dao Primary Care Physician [facility]22 - 04/18/22 [facility] [address] [place] [address]- Allergies, Adverse Reactions, Alerts Substance Reaction Severity Status spironolactone1 Active lisinopril2 Active atorvastatin3 Active thiazide diuretics4 Active amLODIPine5 Active 0lercm8axxgnjh mkmtatlw5bpvv6gpycbvohtsoo6rytyv Immunizations Given and Recorded Vaccine Date Status [...] Refuses 1Result Comment: [facility]: [phone] Comment: [facility]: [phone] Comment: [facility]: [phone] Comment: [05/27/2017] [facility] [phone] Early/Late Reason: Wan to Standard Admin [id number] Note: #27Admin Note: historical data Medications aspirin [...] 01/14/22 21:32:00 EDT, Route to Pharmacy Electronically, [facility] # [facility], 149, cm, 01/09/22 [...] 30 tablet, 5 Refills, 11/12/21 9:33:00 EDT, [facility] # 50, 149, cm, 10/18/21 12:13:00 EDT, Height, 68.9, kg, 12/21/20 8:52:00 EDT, Dry Weight Start Date: 11/12/21 Status: OrderedFLUoxetine 40 mg oral capsule 1 capsule, By Mouth, Daily, # 30 capsule, 5 Refills, [facility] # 50, 149, cm, 02/06/22 9:42:00 EDT, Height, 68.5, kg, 11/19/21 15:42:00 EDT, Dry Weight Start Date: 02/11/22 Status: Orderedfurosemide 20 mg oral tablet 20 mg, 1, tablet, By Mouth, Daily, # 90 tablet, Refills 0, Tot. Refills 0, Maintenance, 02/21/22 12:19:00 EDT, Route to Pharmacy Electronically, [facility] # 50, 149, cm, 02/21/22 11:30:00 EDT, Height, 74.4, kg, 02/12/22 14:46:00 EDT, Dry Weight Start Date: 02/21/22 Status: Orderedhydrocortisone 2.5% topical cream 1 application, Topically, 3 times a day, # 30 Gm, 1 Refills, Maintenance, 01/09/21 12:15:00 EDT, Cream, [facility] # 50, 1 application Topically 3 times a day, 149.9, cm, 01/09/21 12:01:00 EDT, Height, 68.9, kg, 12/21/20 8:52:00 EDT, Dry Weight Start Date: 01/09/21 Status: OrderedHYDROmorphone 4 mg oral tablet 1 tablet = 4 mg, By Mouth, Every 8 hours, # 84 tablet, 0 Refills, Maintenance, 03/26/22 17:12:00 EDT, Tablet, [facility] # 50, partial fill upon request, 04/01/22, 149, cm, 03/21/22 8:09:00 EDT, Height, 74.4, kg, 02/12/22 14:46:00 EDT, Dry Weight Start Date: 03/26/22 Stop Date: 04/23/22 Status: OrderedImodium A-D 2 mg, By Mouth, Refills 0, Maintenance, 01/09/21 15:24:00 EDT, Partial fill upon patient request if the prescription is for a schedule II opioid drug. Start Date: 01/09/21 Status: Orderedlevothyroxine 125 mcg (0.125 mg) oral tablet See Instructions, TAKE ONE TABLET BY MOUTH EVERY DAY, # 30 tablet, 5 Refills, Maintenance, 04/08/22 12:28:00 EDT, [facility] # 50, 149, cm, 03/21/22 [...] 12/27/20 9:18:00 EDT, Route to Pharmacy Electronically, [facility], [...] breast cancer Left, IDC, Active pT1c pN0, ER/CT positive, Her-2/angelito negative, 2012(Confirmed)22, 23 History of [...] 10/18/21 Active Vitamin D Deficiency(Confirmed) Active 1per gastroenterology;llubpek9Awltdybm to gastroenterology no-show for qdnkyiscoba1ctu9 40%4chronic nptmhulxeh3MJBO:2 low smcjv3XQNQ 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,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 srhjebg5grgxtp repeat sdx; injections,fentanyl,morphine,oxycodone er8Dr Oh no surgery re neck,ulnl6eja Dr King,yesterday NO SURGERY, rx corsett,pool10 evaluated by two neurosurgeons,pain ibshbmao96lhaeq vq15Ktudrm 24-hour urine hlnhxdbi80OLUR increased alpha2 qorodjdbz71jjcvcw iron,ferrritin,cderloplasmin; neg HEP a,B,L20izrzfni Oswestry Disability Index: 48% ( severe disability ) on 04/15/16; updated [place] Back Pain Scale:44 on 04/15/16; updated [place]: 7 on 04/15/1616Initial Oswestry Disability Index: 48% ( severe disability ) on 11/24/14; initial [place] Back Pain Scale: 48 on 11/24/14; initial [place]: 5 on 11/24/1516egd . Bilateral common femoral artery endarterectomy. 3. Left common femoral artery patch angioplasty with PTFE. 4. 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 CURRENT THERAPY: Tamoxifen started in 11/17/14, prior anastrozole 11/2012- 09/2014, zoledronic acid, received 02/2015 and 08/2015.17auoii15Hcujjrgmdscrvm Summary Successful drug eluting stenting of the proximal LAD coronary artery with a 3.5X15 mm plus 3.0X8 mm Xience Alpine stents as described above. The second stent was needed to cover distal edge of th efirst stent in an overlapping fashion. 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
--- OUTSIDE RECORDS SUMMARY | 2022-06-11 12:44 | XMS_ITS | Continuity of Care Document ---
:1945 Author Organization [facility] Address [address] [place] [address]- Care Team Providers Name Role Phone Christina BAZAN, Chino Dao Primary Care Physician [facility] - 03/09/22 [facility] [address] [place] [address]- Allergies, Adverse Reactions, Alerts Substance Reaction Severity Status spironolactone1 Active lisinopril2 Active atorvastatin3 Active thiazide diuretics4 Active amLODIPine5 Active 4mtrjc3gaogusv zsbiamds0hphk2glklbnlzswxv6ddhhd Immunizations Given and Recorded Vaccine Date Status [...] Not Given P atient Refuses 1Result Comment: [facility]: [phone] Comment: [facility]: [phone] Comment: [facility]: [phone] Comment: [05/27/2017] [facility] [phone] Early/Late Reason: Wan to Standard Admin [id number] Note: #27Admin Note: historical data Medications aspirin [...] EDT, Route to Pharmacy Electronically, [facility], Partial fill upon patient request if [...] rotator cuff rt orthoi(Confirmed) 02/12/19 Active Diverticulosis, 12/16/19 Active sigmoid;colonoscopy(Confirmed) Lower extremity edema(Confirmed) Active Essential [...] breast cancer Left, IDC, Active pT1c pN0, ER/MI positive, Her-2/angelito negative, 2012(Confirmed)22, 23 History of [...] 10/18/21 Active Vitamin D Deficiency(Confirmed) Active 1per gastroenterology;gdmzplf8Fgaxzdck to gastroenterology no-show for rthgjzaouie9qkp5 40%4chronic vujghuvwcs2IUPO:2 low uyjlb9BVKT 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,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 ictzxzp1edqsqi repeat sdx; injections,fentanyl,morphine,oxycodone er8Dr Oh no surgery re neck,iubk5zga Dr King,yesterday NO SURGERY, rx corsett,pool10 evaluated by two neurosurgeons,pain duinypuh45fxdqp fx76Htsvfq 24-hour urine oqlgzazf08DLKI increased alpha2 mnyfhwbww53fbefzv iron,ferrritin,cderloplasmin; neg HEP a,B,M80pgfxysp Oswestry Disability Index: 48% ( severe disability ) on 04/15/16; updated [place] Back Pain Scale:44 on 04/15/16; updated [place]: 7 on 04/15/1616Initial Oswestry Disability Index: 48% ( severe disability ) on 11/24/14; initial [place] Back Pain Scale: 48 on 11/24/14; initial [place]: 5 on 11/24/1516egd . Bilateral common femoral artery endarterectomy. 3. Left common femoral artery patch angioplasty with PTFE. 4. 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 CURRENT THERAPY: Tamoxifen started in 11/17/14, prior anastrozole 11/2012- 09/2014, zoledronic acid, received 02/2015 and 08/2015.04sznkj22Ghvgyglczyavqh Summary Successful drug eluting stenting of the proximal LAD coronary artery with a 3.5X15 mm plus 3.0X8 mm Xience Alpine stents as described above. The second stent was needed to cover distal edge of th efirst stent in an overlapping fashion. 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
--- OUTSIDE RECORDS SUMMARY | 2022-06-11 12:44 | XMS_ITS | Continuity of Care Document ---
:1945 Author Organization [facility] Address [address] [place] [address]- Care Team Providers Name Role Phone Christina BAZAN, Chino Dao Primary Care Physician [facility]21 - 08/27/21 [facility] [address] [place] [address]- Attending Physician: Not on Staff, Attending MD Allergies, Adverse Reactions, Alerts Substance Reaction Severity Status spironolactone1 Active lisinopril2 Active atorvastatin3 Active thiazide diuretics4 Active amLODIPine5 Active 6oukex5ctrxcer nylwjkwj0unyq7utrqvfpoffbu6gfyuk Immunizations Given and Recorded Vaccine Date Status [...] P atient Refuses 1Result Comment: [facility]: [phone] Comment: [facility]: [phone] Comment: [05/27/2017] [facility] [phone]/Late Reason: Wan to Standard Admin [id number] Note: #26Admin Note: historical data Medications aspirin [...] 04/13/21 5:37:00 EDT, Route to Pharmacy Electronically, [facility] # 50, Partial fill upon patient request if the prescription is for a schedule II op... Start Date: 04/13/21 Status: Orderedclopidogrel 75 mg oral tablet 1, tablet, By Mouth, Daily, # 90 tablet, Refills 0, Route to Pharmacy Electronically, [facility], 149, cm, 07/18/21 14:05:00 [...] 0 Refills, Soft Stop, 03/27/21 10:17:00 EDT, [facility] # 50, Partial fill upon patient request if the prescription is for a schedule II opioid drug., 149, cm, 03/27/21 10:16:00 EDT, Height, 68.9, k... Start Date: 03/27/21 Status: Orderedezetimibe 10 mg oral tablet See Instructions, TAKE ONE TABLET BY MOUTH EVERY DAY, # 30 tablet, 5 Refills, 08/15/21 13:24:00 EST,[facility] # [facility], 149, cm, 08/15/21 11:10:00 EST, Height, 68.9, kg, 12/21/20 8:52:00 EDT, Dry Weight Start Date: 08/15/21 Status: OrderedFLUoxetine 40 mg oral capsule See Instructions, TAKE 1 CAPSULE BY MOUTH DAILY., # 30 capsule, 5 Refills, 08/15/21 13:23:00 EST, [facility] # 50, 149, cm, 08/15/21 11:10:00 EST, Height, 68.9, kg, 12/21/20 8:52:00 EDT, Dry Weight Start Date: 08/15/21 Status: Orderedhydrocortisone 2.5% topical cream 1 application, Topically, 3 times a day, # 30 Gm, 1 Refills, Maintenance, 01/09/21 12:15:00 EDT, Cream, [facility] # 50, 1 application Topically 3 times a day, 149.9, cm, 01/09/21 12:01:00 EDT, Height, 68.9, kg, 12/21/20 8:52:00 EDT, Dry Weight Start Date: 01/09/21 Status: OrderedHYDROmorphone 4 mg oral tablet 1 tablet = 4 mg, By Mouth, Every 8 hours, # 84 tablet, 0 Refills, Maintenance, 08/10/21 16:13:00 EST, Tablet, [facility] # 50, partial fill upon [...] # 30 tablet, 5 Refills, 08/15/21 13:24:00 EST,[facility] # [facility], 149, cm, 08/15/21 [...] 11 Refills, Maintenance, 08/15/21 13:23:00 EST, Capsule, [facility], Partial fill upon patient request if the prescription is for a schedule II opioid drug., 149, cm, 08/15/21 11:10:00 EST, He... Start Date: 08/15/21 Status: OrderedTrelegy Ellipta 200 mcg-62.5 mcg-25 mcg/inh inhalation powder 1 puffs, Inhalation, Daily, at the same time every day, # 1 each, 6 Refills, Maintenance, 08/15/21 13:23:00 EST, Powder, [facility] # 50, Partial fill upon patient request if the prescription is for a schedule II opioid drug., 1 puffs Inhalation D... Start Date: 08/15/21 Status: OrderedTylenol 325 mg oral tablet 650 mg, 2, tablet, By Mouth, Every 4 hours, PRN, # 24 tablet, Refills 0, Tot. Refills 0, Maintenance, Pain , Mild, 12/27/20 9:18:00 EDT, Route to Pharmacy Electronically, [facility], Partial fill upon patient request if the prescription... 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 ytjolqu3ooebuw repeat sdx; injections,fentanyl,morphine,oxycodone er8Dr Oh no surgery re neck,dddr5ycb Dr King,yesterday NO SURGERY, rx corsett,pool10 evaluated by two neurosurgeons,pain ivadrcgr80eokkz sv41Shzddz 24-hour urine ywjadmjp81HRQE increased alpha2 wfkbclqfe17hislkm iron,ferrritin,cderloplasmin; neg HEP a,B,H78uyrjiuj Oswestry Disability Index: 48% ( severe disability ) on 04/15/16; updated [place] Back Pain Scale:44 on 04/15/16; updated [place]: 7 on 04/15/1616Initial [place]estry Disability Index: 48% ( severe disability ) on 11/24/14; initial [place] Back Pain Scale: 48 on 11/24/14; initial [place]: 5 on 11/24/1516egd . Bilateral common femoral artery endarterectomy. 3. Left common femoral artery patch angioplasty with PTFE. 4. 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 CURRENT THERAPY: Tamoxifen started in 11/17/14, prior anastrozole 11/2012- 09/2014, zoledronic acid, received 02/2015 and 08/2015.41bwegp13Jknlqasemobawg Summary Successful drug eluting stenting of the proximal LAD coronary artery with a 3.5X15 mm plus 3.0X8 mm Xience Alpine stents as described above. The second stent was needed to cover distal edge of th efirst stent in an overlapping fashion. 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
--- OUTSIDE RECORDS SUMMARY | 2022-06-11 12:44 | XMS_ITS | Continuity of Care Document ---
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) - 02/01/20 Chronic Pain Syndrome (Discharge Diagnosis) - 02/01/20 Benign Essential Hypertension (Discharge Diagnosis) - 02/03/20 Chronic renal disease, stage III (Discharge Diagnosis) - 02/03/20 Diverticulosis, sigmoid;colonoscopy (Discharge Diagnosis) - 02/03/20 Deficiency of vitamin B12 (Discharge Diagnosis) - 02/03/20 Essential familial hyperlipidemia (Discharge Diagnosis) - 02/03/20 Fatty liver (Discharge Diagnosis) - 02/03/20 Gastro-esophageal reflux EGD 2011 (Discharge Diagnosis) - 02/03/20 History of peripheral artery bypass (Discharge Diagnosis) - 02/03/20 History of (NSTEMI) 2016 TIBURCIO (Discharge Diagnosis) - 02/03/20 Coronary artery disease (Discharge Diagnosis) - 02/03/20 PAD (peripheral artery disease)stenting 2016 (Discharge Diagnosis) - 02/03/20 Hypothyroidism following radioiodine therapy (Discharge Diagnosis) - 02/03/20 Osteopenia (Discharge Diagnosis) - 02/03/20 History of breast cancer left inf ductal lumpectomy/xrt/tamoxifen 2012 (Discharge Diagnosis) - 02/03/20 Attending Physician: Christina BAZAN, Chino Dao Allergies, Adverse Reactions, Alerts Substance Reaction Severity Status atorvastatin1 Active amLODIPine2 Active 3hwes6xuntu Immunizations Given and Recorded Vaccine Date Status [...] P atient Refuses 1Result Comment: [05/27/2017] [facility] [facility] [id number]/Late Reason: Wan to Standard Admin Aqbmk3Vjdis Note: #24Admin Note: historical data Medications Aspirin = 81 mg, By Mouth, Daily, 0 Refills, Maintenance Start Date: 12/26/11 Status: OrderedBevespi Aerosphere 9 mcg-4.8 mcg/inh inhalation aerosol 2 puffs, Inhalation, 2 times a day, 4 by 28 doses lot [id number] exp 05-14, # 1 Doses, 11 Refills, Maintenance, 02/12/19 10:52:38 EDT, 2 puffs Inhalation 2 times a day,Instr:4 by 28 doses; lot [id number] exp 05-14 Start Date: 02/12/19 Status: Orderedcalcium (as [...] 5 Refills, Maintenance, 08/16/19 11:35:00 EST, Capsule, [facility] # 50, 149.9, cm, 07/19/19 9:45:00 EST, Height, 68.9, kg, 07/12/19 14:56:00 EST, Dry Weight Start Date: 08/16/19 Status: Orderedfurosemide 20 mg oral tablet 20 mg, 1, tablet, By Mouth, Daily, # 30 tablet, Refills 1, Tot. Refills 1, Maintenance, 02/08/20 7:20:00 EDT, Route to Pharmacy Electronically, [facility] # 50, 149.9, cm, 02/03/20 14:20:00 EDT, Height, 68.9, kg, 07/12/19 14:56:00 EST, Dry Weight Start Date: 02/08/20 Status: Orderedhydrocortisone 2.5% topical cream 1 application, Topically, 3 times a day, # 30 Gm, 3 Refills, Maintenance, 08/10/18 11:58:13 EST, Cream, 1 application Topically 3 times a day Start Date: 08/10/18 Status: OrderedHYDROmorphone 4 mg oral tablet 1 tablet = 4 mg, By Mouth, Every 8 hours, # 84 tablet, 0 Refills, Maintenance, 01/18/20 17:11:00 EDT, Tablet, [facility] # 50, partial fill upon request, 02/01/20, 149.9, cm, 12/23/19 9:47:00 EDT, Height, 68.9, kg, 07/12/19 14:56:00 EST, Dry Weight Start Date: 01/18/20 Stop Date: 02/15/20 Status: Orderedlevothyroxine 125 mcg (0.125 mg) oral tablet 1 tablet = 125 mcg, By Mouth, Daily, # 30 tablet, 5 Refills, Maintenance, 10/18/19 14:04:00 EDT, Tablet, [facility] # 50, 149.9, cm, 10/14/19 14:23:00 EDT, Height, 68.9, kg, 07/12/19 14:56:00 EST, Dry Weight Start Date: 10/18/19 Status: Orderedmetoprolol 25 mg oral tablet 25 mg, 1, tablet, By Mouth, 2 times a day, # 60 tablet, Refills 5, Tot. Refills 5, Maintenance, 08/16/19 11:35:00 EST, Route to Pharmacy Electronically, [facility] # 50, 149.9, cm, 07/19/19 9:45:00EST, Height, 68.9, kg, 07/12/19 14:56:00 EST, Dry... Start Date: 08/16/19 Status: Orderedpravastatin 20 mg oral tablet 20 [...] Daily, # 90 tablet, 0 Refills, Maintenance, 02/08/20 7:20:00 EDT, CR Tablet, [facility] # 50, 149.9, cm, 02/03/20 14:20:00 EDT, Height, 68.9, kg, 07/12/19 14:56:00 EST, Dry Weight Start Date: 02/08/20 Status: OrderedraNITIdine 150 mg oral tablet 1 tablet = 150 mg, By Mouth, 2 times a day, # 60 tablet, 11 Refills, Maintenance, 10/20/18 11:36:14 EDT, Tablet, replaces omeprazole Start Date: 10/20/18 Status: Orderedspironolactone 25 mg oral tablet See Instructions, 1/2 daily, # 30 tablet, Refills 6, Tot. Refills 6, Maintenance, 10/15/19 9:40:00 EDT, Instructions Replace Required Details, Route to Pharmacy Electronically, [facility] # 50, 149.9, cm, 10/14/19 14:23:00 EDT, Height, 68.9, kg, 1... 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,[employer]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 repeat sdx; injections,fentanyl,morphine,oxycodone er8Dr Oh no surgery re neck,rony0pfn Dr King,yesterday NO SURGERY, rx corsett,pool10 evaluated by two neurosurgeons,pain wbkytunf65kmroy mr50Fbiemj 24-hour urine fvsiatgd89LJGD increased alpha2 qmbjxlgoh76eigdbl iron,ferrritin,cderloplasmin; neg HEP a,B,E42nshkboy Oswestry Disability Index: 48% ( severe disability ) on 04/15/16; updated [place] Back Pain Scale:44 on 04/15/16; updated [place]: 7 on 04/15/1616Initial Oswestry Disability Index: 48% ( severe disability ) on 11/24/14; initial [place] Back Pain Scale: 48 on 11/24/14; initial [place]: 5 on 11/24/1516egd . Bilateral common femoral artery endarterectomy. 3. Left common femoral artery patch angioplasty with PTFE. 4. 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 CURRENT THERAPY: Tamoxifen started in 11/17/14, prior anastrozole 11/2012- 09/2014, zoledronic acid, received 02/2015 and 08/2015.33wbvjp19Kohdbhhiohcxug Summary Successful drug eluting stenting of the proximal LAD coronary artery with a 3.5X15 mm plus 3.0X8 mm Xience Alpine stents as described above. The second stent was needed to cover distal edge of th efirst stent in an overlapping fashion. The stents were post-dilated using a 3.5 mm non-compliant balloon.25 now hyperthyroid,exopthalmous;Dr MurphySmbija52ynlzyiv pre diabetes increased risk dlegnaid47cajawo82ta stable;recheck 12 bghfnw85tluck lung nodules on neck CT recheck 6 ezjful29LYC0h jin15NNq7 four low laxuj00dlgu normal,b12 low ebocrq44 fit ter[address] rab98ssxtxog D deficiency;correcting Diagnosis Diagnosis Type Effective Dates Health Clinical Infor mant Status Service Failed back Discharge 02/01/20 syndrome, lumbar Diagnosis Chronic prescription Discharge 02/01/20 opiate use Diagnosis Depression, major Discharge 02/01/20 Diagnosis COPD with asthma Discharge 02/01/20 fev1 40% Diagnosis Chronic Pain Discharge 02/01/20 Syndrome Diagnosis Benign Essential Discharge 02/03/20 Hypertension Diagnosis Chronic renal Discharge 02/03/20 disease, stage III Diagnosis Diverticulosis, Discharge 02/03/20 sigmoid;colonoscopy Diagnosis Deficiency of Discharge 02/03/20 vitamin B12 Diagnosis Essential familial Discharge 02/03/20 hyperlipidemia Diagnosis Fatty liver Discharge 02/03/20 Diagnosis Gastro-esophageal Discharge 02/03/20 reflux EGD 2011 Diagnosis History of Discharge 02/03/20 peripheral artery Diagnosis bypass History of (NSTEMI) Discharge 02/03/202015 TIBURCIO Diagnosis Coronary artery Discharge 02/03/20 disease Diagnosis PAD (peripheral Discharge 02/03/20 artery Diagnosis disease)stenting 2015 Hypothyroidism Discharge 02/03/20 following Diagnosis radioiodine therapy Osteopenia Discharge 02/03/20 Diagnosis History of breast Discharge 02/03/20 cancer left inf Diagnosis ductal lumpectomy/xrt/tamox ifen 2012 Vital Signs Most recent to oldest [Reference Range]: 1 Height 149.9 cm (02/03/20 2:20 PM) Weight 72.3 kg (02/03/20 2:20 PM) Oxygen Saturation [94-100 %] 98 % (02/03/20 2:20 PM) Pulse Rate [55-90 bpm] 65 bpm (02/03/20 2:20 PM) Body Mass Index [18.5-24.99] 32.18 *>HHI* (02/03/20 2:20 PM) Blood Pressure [90-138/55-84 mm Hg] 130/80 mm Hg (02/03/20 2:20 PM) Temperature [96.8-100.4 DegF] 98.6 DegF (02/03/20 2:20 PM) Mode of Delivery (Oxygen) Room air (02/03/20 2:20 PM) Blood pressure sites Arm, left (02/03/20 2:20 PM) Temperature Route Oral (02/03/20 2:20 PM) Weight Obtained Via Standing scale (02/03/20 2:20 PM) Social History Social History Type Response 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
--- OUTSIDE RECORDS SUMMARY | 2022-06-11 12:44 | XMS_ITS | Continuity of Care Document ---
:1945 Author Organization [facility] Address [address] [place] [address]- Care Team Providers Name Role Phone Chino Vasquez MD Primary Care Physician [place] [facility] [place] 04/12[place]21 - 04/19/21 [facility] [address] [place] [address]- Attending Physician: Chino Vasquez MD Allergies, Adverse Reactions, Alerts Substance Reaction Severity Status spironolactone1 Active lisinopril2 Active atorvastatin3 Active amLODIPine4 Active 9zccay5tpscrly bifigeid3uanh5ffufp Immunizations Given and Recorded Vaccine Date Status [...] Given P atient Refuses 1Result Comment: [05/27/2017] [facility] [id number]/Late Reason: Wan to Standard Admin Hnqre0Gpcrg Note: #24Admin Note: historical data Medications aspirin 81 mg oral delayed release tablet 81 mg, 1, tablet, By Mouth, Daily, Maintenance, 12/21/20 16:02:00 EDT, ; Start Date: 12/21/20 Status: OrderedBevespi Aerosphere 9 mcg-4.8 mcg/inh inhalation aerosol See Instructions, INHALE 2 PUFFS BY MOUTH TWO TIMES A DAY, # 10.7 Gm, 11 Refills, Maintenance, [facility], 30, INHALE 2 PUFFS [...] 04/03/21 13:25:00 EDT, Route to Pharmacy Electronically, [facility] # [facility], Partial fill upon patient request if the prescription is for a schedule II opio... Start Date: 04/03/21 Status: Orderedchlorthalidone 25 mg oral tablet See Instructions, TAKE ONE TABLET BY MOUTH EVERY DAY, # 30 tablet, Refills 5, Tot. Refills 5, Maintenance, 02/20/21 1:48:00 EDT, Instructions Replace Required Details, Route to Pharmacy Electronically,[facility], 149, cm, 02/09/21 10:03:00 E... Start Date: 02/20/21 Status: OrderedcloNIDine 0.1 mg oral tablet 0.1 mg, 1, tablet, By Mouth, 2 times a day, # 60 tablet, Refills 6, Tot. Refills 6, Maintenance, 04/13/21 5:37:00 EDT, Route to Pharmacy Electronically, [facility] # [facility], Partial [...] 0 Refills, Soft Stop, 03/27/21 10:17:00 EDT, [facility] # [facility], Partial fill upon patient request if the prescription is for a schedule II opioid drug., 149, cm, 03/27/21 10:16:00 EDT, Height, 68.9, k... Start Date: 03/27/21 Status: OrderedFlovent HFA 110 mcg/inh inhalation aerosol See Instructions, INHALE 2 PUFFS TWO TIMES A DAY, # 12 Gm, 5 Refills, Maintenance, [facility] # [facility], 149, cm, 02/09/21 10:03:00 EDT, Height, 68.9, kg, 12/21/20 8:52:00 EDT, Dry Weight Start Date: 02/09/21 Status: OrderedFLUoxetine 40 mg oral capsule See Instructions, TAKE 1 CAPSULE BY MOUTH DAILY., # 30 capsule, 5 Refills, Maintenance, [facility] # 50, 149, cm, 02/09/21 10:03:00 EDT, Height, 68.9, kg, 12/21/20 8:52:00 EDT, Dry Weight Start Date: 02/12/21 Status: Orderedhydrocortisone 2.5% topical cream 1 application, Topically, 3 times a day, # 30 Gm, 1 Refills, Maintenance, 01/09/21 12:15:00 EDT, Cream, [facility] # 50, 1 application Topically 3 times a day, 149.9, cm, 01/09/21 12:01:00 EDT, Height, 68.9, kg, 12/21/20 8:52:00 EDT, Dry Weight Start Date: 01/09/21 Status: OrderedHYDROmorphone 4 mg oral tablet 1 tablet = 4 mg, By Mouth, Every 8 hours, for 28 days, # 84 tablet, 0 Refills, Hard Stop 04/24/21 7:54:00 EDT, 03/27/21 7:54:00 EDT, Tablet, [facility] # 50, partial fill upon request, 04/03/21, 149, cm, 02/09/21 10:03:00 EDT, Height, 68.9, kg, 05... Start Date: 03/27/21 Stop Date: 04/24/21 Status: OrderedHYDROmorphone 4 mg oral tablet 1 tablet = 4 mg, By Mouth, Every 8 hours, # 84 tablet, 0 Refills, Maintenance, 04/17/21 12:57:00 EDT, Tablet, [facility] # 50, partial fill upon request, [...] DAY, # 30 tablet, 5 Refills, [facility] # 50, 149, cm, 03/29/21 11:00:00 EDT, Height, 68.9, kg, 12/21/20 8:52:00 EDT, Dry Weight Start Date: 04/16/21 Status: OrderedoxyCODONE 5 mg oral tablet 5 mg, 1, tablet, By Mouth, Every 6 hours, PRN, # 5 tablet, Refills 0, Tot. Refills 0, Maintenance, Pain , Severe, 12/27/20 9:18:00 EDT, Route to Pharmacy Electronically, [facility], Partial fill upon patient request [...] 01/22/21 11:44:00 EDT, Route to Pharmacy Electronically, [facility] # 50, 149, cm, 01/18/21 11:04:00 EDT, Height, 68.9, kg, 12/21/20 8:52:00 EDT, Dry Weight Start Date: 01/22/21 Status: Orderedrosuvastatin 10 mg oral capsule 1 capsule = 10 mg, By Mouth, Daily, # 30 capsule, 11 Refills, Maintenance, 08/29/20 15:01:00 EST, Capsule, [facility] # 50, Partial fill upon patient request if the prescription is for a schedule II opioid drug., 149.9, cm, 08/28/20 14:48:00 EST,... Start Date: 08/29/20 Status: OrderedTylenol 325 mg oral tablet 650 mg, 2, tablet, By Mouth, Every 4 hours, PRN, # 24 tablet, Refills 0, Tot. Refills 0, Maintenance, Pain , Mild, 12/27/20 9:18:00 EDT, Route to Pharmacy Electronically, [facility], Partial fill upon patient request if [...] 5 Refills, Maintenance, 11/06/20 16:02:00 EDT, Tablet, [facility] # 50, 149.9, cm, 10/26/20 14:49:00 [...] breast cancer Left, IDC, Active pT1c pN0, ER/MT positive, Her-2/angelito negative, 2012(Confirmed)22, 23 History of [...] Active use(Confirmed) Vitamin D Deficiency(Confirmed) Active 1per gastroenterology;ebmqkma1Kkrtepiw to gastroenterology no-show for jigpefgsavv0ffe6 40%4chronic ytdejzetck9MIOI:2 low brjxa5AYQS test done,[employer] mesgskh9pginvj repeat sdx; injections,fentanyl,morphine,oxycodone er8Dr Oh no surgery re neck,tzdr3xkm Dr King,yesterday NO SURGERY, rx corsett,pool10 evaluated by two neurosurgeons,pain vwxrsmjp36lsybw tl06Tfjdnc 24-hour urine zhyaryaz05VPIK increased alpha2 slofpbnny89xwbrtq iron,ferrritin,cderloplasmin; neg HEP a,B,K24hcmornq Oswestry Disability Index: 48% ( severe disability ) on 04/15/16; updated [place] Back Pain Scale:44 on 04/15/16; updated [place]: 7 on 04/15/1616Initial Oswestry Disability Index: 48% ( severe disability ) on 11/24/14; initial [place] Back Pain Scale: 48 on 11/24/14; initial [place]: 5 on 11/24/1516egd . Bilateral common femoral artery endarterectomy. 3. Left common femoral artery patch angioplasty with PTFE. 4. 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 CURRENT THERAPY: Tamoxifen started in 11/17/14, prior anastrozole 11/2012- 09/2014, zoledronic acid, received 02/2015 and 08/2015.84qqxio59Wzvsdwjywkmuee Summary Successful drug eluting stenting of the proximal LAD coronary artery with a 3.5X15 mm plus 3.0X8 mm Xience Alpine stents as described above. The second stent was needed to cover distal edge of th efirst stent in an overlapping fashion. The stents were post-dilated using a 3.5 mm non-compliant balloon.25 now hyperthyroid,exopthalmous;Dr MurphyCdpaou08ahaaxzf pre diabetes increased risk vqwcviiz63lhqndt83qu stable;recheck 12 sjvwpj38dmjta lung nodules on neck CT recheck 6 kpzysy08MYA1k jjo77FVu0 four low lebfq77akjl normal,b12 low khocmz45 fit terst eay91zmpglul D deficiency;correcting Vital Signs Most recent to oldest [Reference Range]: 1 2 Pulse Rate [55-90 bpm] 64 bpm (04/12/21 3:10 PM) Blood Pressure [90-138/55-84 mm Hg] 158/70 mm Hg 158/ 80 mm Hg *H* *H* (04/12/21 3:18 PM) (04/12/21 3:10 PM) Blood pressure sites Arm, right Arm, right (04/12/21 3:18 PM) (04/12/21 3:10 PM) Social History Social History Type Response 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
--- OUTSIDE RECORDS SUMMARY | 2022-06-11 12:44 | XMS_ITS | Continuity of Care Document ---
:1945 Author Organization [facility] Address [address] [place] [address]- Care Team Providers Name Role Phone Christina BAZAN, Chino Dao Primary Care Physician [facility]counter [facility] Date(s): 04/18/22 - 05/18/22 [facility] [address] [place] [address]- Allergies, Adverse Reactions, Alerts Substance Reaction Severity Status spironolactone1 Active lisinopril2 Active atorvastatin3 Active thiazide diuretics4 Active amLODIPine5 Active 7boqec5gvnalib bkctrwvo3emyu1qpisvfrbwmkt0gxoaa Immunizations Given and Recorded Vaccine Date Status [...] Not Given P atient Refuses 1Result Comment: [facility] [place] 2]: [id number] Comment: [05/27/2017] [facility] [place] 2] [id number] 3Early/Late Reason: Wan to Standard Admin Xfjms0Rmhzru Comment: [facility] [place][NOTE 2]: [id number] Comment: [facility] [place]NOTE 2]: [id number] Note: #27Admin Note: historical data Medications aspirin [...] [facility] 149, cm, 04/25/22 10:28:00 [...] Mouth, Daily, # 30 capsule, 5 Refills, [facility] # [facility], 149, cm, 02/06/22 9:42:00 EDT, Height, 68.5, kg, 11/19/21 15:42:00 EDT, Dry Weight Start Date: 02/11/22 Status: Orderedfurosemide 20 mg oral tablet 20 mg, 1, tablet, By Mouth, Daily, # 90 tablet, Refills 0, Tot. Refills 0, Maintenance, 02/21/22 12:19:00 EDT, Route to Pharmacy Electronically, [facility] # [facility], 149, cm, 02/21/22 11:30:00 [...] 0 Refills, Maintenance, 03/26/22 17:12:00 EDT, Tablet, [facility] [...] tablet, 5 Refills, Maintenance, 04/08/22 12:28:00 EDT, [facility] # [facility], 149, cm, 03/21/22 8:09:00 [...] 12/27/20 9:18:00 EDT, Route to Pharmacy Electronically, [facility], Partial fill upon patient [...] Active disease Torn rotator cuff rt Confirmed 7/19/19 Active orthoi Diverticulosis, Confirmed 07/12/19 Active sigmoid;colonoscopy Lower extremity edema Confirmed Active Essential familial Confirmed Active hyperlipidemia Ex-smoker, / ppd Confirmed Active X23 years, quit 1997 Excessive weight Confirmed Active gain12 Fatty liver13, 14 Confirmed Active Limitation due to Confirmed Active ohfuxezgro41, 16 Opiate use Confirmed Active Gastro-esophageal Confirmed Active reflux EGD [id number] Graves' disease Confirmed Active H/O fracture of wrist Confirmed 12/03/21 Active rt History of peripheral Confirmed 05/17/16 Active artery H/O compression Confirmed Active fracture of sacrum 2014 sdtwefrqmrn30 History of alcohol Confirmed Active abuse20, 21 H/O nausea Confirmed Active History of ischemic Confirmed 12/21/20 Active colitis History of breast Confirmed Active cancer Left, IDC, pT1c pN0, ER/FL positive, Her-2/angelito negative, [id number], 23 History of (NSTEMI) Confirmed 11/10/15 Active 2015 DES24 S/P drug eluting Confirmed Active coronary stent placement Hyperkalemia Confirmed 03/08/19 Active Hyponatremia Confirmed Active Hypothyroidism Confirmed Active following radioiodine ldaajof42 Impaired Fasting Confirmed 06/03/07 Active Szorpog44 Anemia, iron Confirmed Active deficiency neg colo 2018.neg egd 2020 per gi (greef) no addtl workuyp Low back pain Confirmed Active Failed back syndrome, Confirmed Active lumbar Lung nodules remote Confirmed Active gfuacu96, 28, 29 Lymphedema of both Confirmed Active lower extremities Depression, major30, Confirmed Active 31 Fx metatarsal rt Confirmed 04/27/19 Active second Nocturia Confirmed 10/18/21 Active Normocytic Confirmed Active normochromic axgkeh48, 33 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 Lmwmrckgvw08 Confirmed Active PAD (peripheral Confirmed Active artery disease)stenting 2015 Chronic prescription Confirmed Active opiate use Multiple falls REFER Confirmed 10/18/21 Active PT Sep 2021 Frequent PVCs brefer Confirmed 10/18/21 Active holter Vitamin D Deficiency Confirmed Active 1per gastroenterology;gavofot3Kqehvmhf to gastroenterology no-show for dkjmucfejia8akn9 40%4chronic yloylxdsmz4XPKD:2 low zlpar7SFJC test done,[employer]ER bcbpzab2eunxbr repeat sdx; injections,fentanyl,morphine,oxycodone er8Dr Oh no surgery re neck,cdrk7qtb Dr King,yesterday NO SURGERY, rx corsett,pool10 evaluated by two neurosurgeons,pain mfgaclts80dtagh vy48Gwawnr 24-hour urine wgtzltpb60DRQY increased alpha2 tsjginhgo81efiwlf iron,ferrritin,cderloplasmin; neg HEP a,B,M24ysgazjj Oswestry Disability Index: 48% ( severe disability ) on 04/15/16; updated [place] Back Pain Scale:44 on 04/15/16; updated [place]: 7 on 04/15/1616Initial Oswestry Disability Index: 48% ( severe disability ) on 11/24/14; initial [place] Back Pain Scale: 48 on 11/24/14; initial [place]: 5 on 11/24/1516egd . Bilateral common femoral artery endarterectomy. 3. Left common femoral artery patch angioplasty with PTFE. 4. 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 CURRENT THERAPY: Tamoxifen started in 11/17/14, prior anastrozole 11/2012- 09/2014, zoledronic acid, received 02/2015 and 08/2015.10gzckh41Vnkmxionoxtqrf Summary Successful drug eluting stenting of the proximal LAD coronary artery with a 3.5X15 mm plus 3.0X8 mm Xience Alpine stents as described above. The second stent was needed to cover distal edge of th efirst stent in an overlapping fashion. 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
--- OUTSIDE RECORDS SUMMARY | 2022-06-11 12:45 | XMS_ITS | Continuity of Care Document ---
:1945 Author Organization [facility] [employer] [facility] p Address [address] [place] [address], [address] [place] [id number]- Care Team Providers Name Role Phone Chino Vasquez MD Primary Care Physician Encounter [facility] [place] Date(s): 11/19/21 - 11/26/21 [facility] [employer] [facility] [address] [place] [address], [address] [place] [address]- Attending Physician: Xenia Hart MD Referring Physician: Chino Vasquez MD Allergies, Adverse Reactions, Alerts Substance Reaction Severity Status spironolactone1 Active lisinopril2 Active amLODIPine3 Active atorvastatin4 Active thiazide diuretics5 Active 7hudtr8jhqxafr zgxomfeq9dvxnw7kiuu4zkucotuvysof Immunizations Given and Recorded Vaccine Date Status [...] Given P atient Refuses 1Result Comment: [facility]: [phone] Comment: [facility]: [phone] Comment: [facility]: [phone] Comment: [05/27/2017] [facility] [phone] Early/Late Reason: Wan to Standard Admin [id number] Note: #27Admin Note: historical data Medications aspirin [...] tablet, Refills 0, Route to Pharmacy Electronically, [facility] # 50, 149, cm, 10/16/21 14:48:00 EDT, Height, 68.9, kg, 12/21/20 8:52:00 EDT, Dry Weight Start Date: 10/17/21 Status: OrderedcloNIDine 0.1 mg oral tablet See Instructions, TAKE ONE TABLET BY MOUTH TWICE A DAY, # 60 tablet, Refills 5, Instructions ReplaceRequired Details, Route to Pharmacy Electronically, [facility] # 50, 149, cm, 10/18/21 [...] 30 tablet, 5 Refills, 11/12/21 9:33:00 EDT, [facility] # 50, 149, cm, 10/18/21 12:13:00 EDT, Height, 68.9, kg, 12/21/20 8:52:00 EDT, Dry Weight Start Date: 11/12/21 Status: OrderedFLUoxetine 40 mg oral capsule See Instructions, TAKE 1 CAPSULE BY MOUTH DAILY., # 30 capsule, 5 Refills, 08/15/21 13:23:00 EST, [facility] # 50, 149, cm, 08/15/21 [...] tablet, 0 Refills, Maintenance, 11/06/21 9:15:00 EDT,Tablet, [facility] # 50, partial fill [...] # 30 tablet, 5 Refills, 10/11/21 14:05:00 EDT,[facility] # 50, 149, cm, 08/15/21 [...] Maintenance, 08/15/21 13:23:00 EST, Capsule, [facility], Partial fill [...] 12/27/20 9:18:00 EDT, Route to Pharmacy Electronically, [facility], Partial fill upon patient request if the prescription... 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,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 jrceklk1cqeyvs repeat sdx; injections,fentanyl,morphine,oxycodone er8Dr Oh no surgery re neck,bcwe7bhf Dr King,yesterday NO SURGERY, rx corsett,pool10 evaluated by two neurosurgeons,pain fcvyjuij90jnbsd qy92Zzgjxh 24-hour urine udfbwpqi41QUYZ increased alpha2 ehwnlbuwi35lqsdev iron,ferrritin,cderloplasmin; neg HEP a,B,L24nsuhavj Oswestry Disability Index: 48% ( severe disability ) on 04/15/16; updated [place] Back Pain Scale:44 on 04/15/16; updated [place]: 7 on 04/15/1616Initial Oswestry Disability Index: 48% ( severe disability ) on 11/24/14; initial [place] Back Pain Scale: 48 on 11/24/14; initial [place]: 5 on 11/24/1516egd . Bilateral common femoral artery endarterectomy. 3. Left common femoral artery patch angioplasty with PTFE. 4. 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 CURRENT THERAPY: Tamoxifen started in 11/17/14, prior anastrozole 11/2012- 09/2014, zoledronic acid, received 02/2015 and 08/2015.66soziv48Ievqgnfuovtows Summary Successful drug eluting stenting of the proximal LAD coronary artery with a 3.5X15 mm plus 3.0X8 mm Xience Alpine stents as described above. The second stent was needed to cover distal edge of th efirst stent in an overlapping fashion. The stents were post-dilated using a 3.5 mm non-compliant balloon.25 now hyperthyroid,exopthalmous;Dr MurphyTrcbha28evorwpx pre diabetes increased risk wygwoimz93fpmrfp94qn stable;recheck 12 gxezaq54fznsi lung nodules on neck CT recheck 6 tdeavj55YMK0x hlp88MQe5 four low ezehe34gjgu normal,b12 low fit terst saj14wyjztee D deficiency;correcting Vital Signs Most recent to oldest [Reference Range]: 1 Height 149 cm (11/19/21 2:57 PM) Weight 68.5 kg (11/19/21 2:57 PM) Body Mass Index [18.5-24.99] 30.85 *>HHI* (11/19/21 2:57 PM) Blood Pressure [90-138/55-84 mm Hg] 144/72 mm Hg *H* (11/19/21 2:57 PM) Blood pressure sites Arm, right (11/19/21 2:57 PM) Dry Weight 68.5 kg (11/19/21 2:57 PM) Weight Obtained Via Standing scale (11/19/21 2:57 PM) Dry Weight Obtained Via Standing scale (11/19/21 2:57 PM) Social History Social History Type Response 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
--- OUTSIDE RECORDS SUMMARY | 2022-06-11 12:45 | XMS_ITS | Continuity of Care Document ---
:1945 Author Organization [facility] Address [address] [place] [address]- Care Team Providers Name Role Phone Christina BAZAN, Chino Dao Primary Care Physician [place] [facility] [place] 07/18[place]21 - 07/25/21 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) - 07/18/21 Benign Essential Hypertension (Discharge Diagnosis) - 07/18/21 Chronic renal disease, stage III (Discharge Diagnosis) - 07/18/21 Attending Physician: Chino Vasquez MD Allergies, Adverse Reactions, Alerts Substance Reaction Severity Status spironolactone1 Active lisinopril2 Active atorvastatin3 Active thiazide diuretics4 Active amLODIPine5 Active 0qrpmr7lymfmeu eenryrtq0clss2kmamhtqigwaa2vsogy Immunizations Given and Recorded Vaccine Date Status [...] Not Given P atient Refuses 1Result Comment: [facility]: [phone] Comment: [facility]: [phone] Comment: [05/27/2017] [facility] [phone]/Late Reason: Wan to Standard Admin [id number] Note: #26Admin Note: historical data Medications aspirin [...] 04/13/21 5:37:00 EDT, Route to Pharmacy Electronically, [facility] # 50, Partial fill upon patient request if the prescription is for a schedule II op... Start Date: 04/13/21 Status: Orderedclopidogrel 75 mg oral tablet 1, tablet, By Mouth, Daily, # 90 tablet, Refills 0, Route to Pharmacy Electronically, [facility], 149, cm, 07/18/21 14:05:00 [...] 0 Refills, Soft Stop, 03/27/21 10:17:00 EDT, [facility] # 50, Partial fill upon patient request if the prescription is for a schedule II opioid drug., 149, cm, 03/27/21 10:16:00 EDT, Height, 68.9, k... Start Date: 03/27/21 Status: Orderedezetimibe 10 mg oral tablet See Instructions, TAKE ONE TABLET BY MOUTH EVERY DAY, # 30 tablet, 5 Refills, [facility], 149, cm, 03/29/21 11:00:00 EDT, Height, 68.9, kg, 12/21/20 8:52:00 EDT, Dry Weight Start Date: 05/09/21 Status: OrderedFLUoxetine 40 mg oral capsule See Instructions, TAKE 1 CAPSULE BY MOUTH DAILY., # 30 capsule, 5 Refills, Maintenance, [facility] # [facility], 149, cm, 02/09/21 10:03:00 EDT, Height, 68.9, kg, 12/21/20 8:52:00 EDT, Dry Weight Start Date: 02/12/21 Status: Orderedhydrocortisone 2.5% topical cream 1 application, Topically, 3 times a day, # 30 Gm, 1 Refills, Maintenance, 01/09/21 12:15:00 EDT, Cream, [facility] # [facility], 1 application Topically 3 times a day, 149.9, cm, 01/09/21 12:01:00 EDT, Height, 68.9, kg, 12/21/20 8:52:00 EDT, Dry Weight Start Date: 01/09/21 Status: OrderedHYDROmorphone 4 mg oral tablet 1 tablet = 4 mg, By Mouth, Every 8 hours, # 84 tablet, 0 Refills, Maintenance, 07/17/21 11:47:00 EST, Tablet, [facility] # 50, partial fill upon request, 07/24/21, 149, cm, 06/19/21 9:35:00 EST, Height, 68.9, kg, 12/21/20 8:52:00 EDT, Dry Weight Start Date: 07/17/21 Stop Date: 08/14/21 Status: OrderedImodium A-D 2 mg, By Mouth, Refills 0, Maintenance, 01/09/21 15:24:00 EDT, Partial fill upon patient request if the prescription is for a schedule II opioid drug. Start Date: 01/09/21 Status: Orderedlevothyroxine 125 mcg (0.125 mg) oral tablet See Instructions, TAKE ONE TABLET BY MOUTH EVERY DAY, # 30 tablet, 5 Refills, [facility] # 50, 149, cm, 03/29/21 11:00:00 EDT, Height, 68.9, kg, 12/21/20 8:52:00 EDT, Dry Weight Start Date: 04/16/21 Status: Orderedpantoprazole 20 mg oral delayed release tablet 1 tablet, By Mouth, Daily, # 90 tablet, 0 Refills, 149, cm, 07/18/21 14:05:00 EST, Height, 68.9, kg,12/21/20 8:52:00 EDT, Dry Weight Start Date: 07/23/21 Status: Orderedrosuvastatin 10 mg oral capsule 1 capsule = 10 mg, By Mouth, Daily, # 30 capsule, 11 Refills, Maintenance, 08/29/20 15:01:00 EST, Capsule, [facility] # 50, Partial fill upon patient request if the prescription is for a schedule II opioid drug., 149.9, cm, 08/28/20 14:48:00 EST,... Start Date: 08/29/20 Status: OrderedTrelegy Ellipta 200 mcg-62.5 mcg-25 mcg/inh inhalation powder 1 puffs, Inhalation, Daily, at the same time every day, # 1 each, 6 Refills, Maintenance, 07/18/21 14:24:00 EST, Powder, [facility] # 50, Partial fill upon patient request if the prescription is for a schedule II opioid drug., 1 puffs Inhalation D... Start Date: 07/18/21 Status: OrderedTylenol 325 mg oral tablet 650 mg, 2, tablet, By Mouth, Every 4 hours, PRN, # 24 tablet, Refills 0, Tot. Refills 0, Maintenance, Pain , Mild, 12/27/20 9:18:00 EDT, Route to Pharmacy Electronically, [facility], Partial fill upon patient request if the prescription... Start Date: 12/27/20 Status: OrderedVentolin HFA 108 mcg/inh inhalation aerosol with adapter See Instructions, INHALE 2 PUFFS FOUR TIMES A DAY NEEDED FOR WHEEZING, # 18 Gm, 5 Refills, Maintenance, 06/03/21 13:53:00 EST, [facility] # 50, 149, cm, 03/29/21 11:00:00 EDT, Height, 68.9, kg, 12/21/20 8:52:00 EDT, Dry Weight Start Date: 06/03/21 Status: OrderedVitamin B12 1000 mcg oral tablet [...] breast cancer Left, IDC, Active pT1c pN0, ER/[place] positive, Her-2/angelito negative, 2012(Confirmed)22, 23 History of [...] Active use(Confirmed) Vitamin D Deficiency(Confirmed) Active 1per gastroenterology;gwsqzsc1Cahkjnha to gastroenterology no-show for zgksrhrbglb9zza1 40%4chronic pnxxhjjyln5NIKW:2 low juwhq8IFFL 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,[employer]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 ypqwilv2ydjiff repeat sdx; injections,fentanyl,morphine,oxycodone er8Dr Oh no surgery re neck,dbtt0tin Dr King,yesterday NO SURGERY, rx corsett,pool10 evaluated by two neurosurgeons,pain ucmzqioq86kgwvd bl04Dfwfkx 24-hour urine fsmhrnci24SYJV increased alpha2 ptofkskmf58clfepb iron,ferrritin,cderloplasmin; neg HEP a,B,F61lfacqdi Oswestry Disability Index: 48% ( severe disability ) on 04/15/16; updated [place] Back Pain Scale:44 on 04/15/16; updated [place]: 7 on 6Initial Oswestry Disability Index: 48% ( severe disability ) on 11/24/14; initial [place] Back Pain Scale: 48 on 11/24/14; initial [place]: 5 on 7egd . Bilateral common femoral artery endarterectomy. 3. Left common femoral artery patch angioplasty with PTFE. 4. 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 CURRENT THERAPY: Tamoxifen started in 11/17/14, prior anastrozole 11/2012- 09/2014, zoledronic acid, received 02/2015 and 08/2015.18wbzsc55Uuvbikehgmuhlo Summary Successful drug eluting stenting of the proximal LAD coronary artery with a 3.5X15 mm plus 3.0X8 mm Xience Alpine stents as described above. The second stent was needed to cover distal edge of th efirst stent in an overlapping fashion. The stents were post-dilated using a 3.5 mm non-compliant balloon.25 now hyperthyroid,exopthalmous;Dr MurphyPymhve23ggelukx pre diabetes increased risk lqpbujjz06whargz94xm stable;recheck 12 mlmyod80vmsll lung nodules on neck CT recheck 6 cdsaih91OUM9f uhq70QIg3 four low dvcwv44idbu normal,b12 low gqlodn52 fit terst ubv01diwzvsp D deficiency;correcting Diagnosis Diagnosis Type Effective Dates Health Clinical Infor [facility] Status Service COPD with asthma Discharge 07/18/21 fev1 40% Diagnosis Benign Essential Discharge 07/18/21 Hypertension Diagnosis Chronic renal Discharge 07/18/21 disease, stage III Diagnosis Vital Signs Most recent to oldest [Reference Range]: 1 Height 149 cm (07/18/21 2:05 PM) Weight 71.1 kg (07/18/21 2:05 PM) Oxygen Saturation [94-100 %] 98 % (07/18/21 2:05 PM) Pulse Rate [55-90 bpm] 62 bpm (07/18/21 2:05 PM) Body Mass Index [18.5-24.99] 32.03 *>HHI* (07/18/21 2:05 PM) Blood Pressure [90-138/55-84 mm Hg] 134/70 mm Hg (07/18/21 2:05 PM) Temperature [96.8-100.4 DegF] 98.2 DegF (07/18/21 2:05 PM) Mode of Delivery (Oxygen) Room air (07/18/21 2:05 PM) Blood pressure sites Arm, right (07/18/21 2:05 PM) Temperature Route Oral (07/18/21 2:05 PM) Weight Obtained Via Standing scale (07/18/21 2:05 PM) Social History Social History Type Response 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
--- OUTSIDE RECORDS SUMMARY | 2022-06-11 12:45 | XMS_ITS | Continuity of Care Document ---
:1945 Author Organization [facility] Address [address] [place] [address]- Care Team Providers Name Role Phone Christina BAZAN, Chino Dao Primary Care Physician Encounter [facility] [place] Date(s): 03/26/22 - 04/25/22 [facility] [address] [place], [place] [address] Attending Physician: Saurabh Coronado Admitting Physician: AdmtrSaurabh Referring Physician: Admtr, Ar8 Allergies, Adverse Reactions, Alerts Substance Reaction Severity Status spironolactone1 Active lisinopril2 Active atorvastatin3 Active thiazide diuretics4 Active amLODIPine5 Active 6yfrjn9ftnddxx lxcfhtnr8mcrb3paviirnbrwof5hotab Immunizations Given and Recorded Vaccine Date Status [...] Given P atient Refuses 1Result Comment: [facility]: [id number] Comment: [facility]: [id number] Comment: [facility]: [phone] Comment: [05/27/2017] [facility] [phone] Early/Late Reason: Wan to Standard Admin [id number] Note: #27Admin Note: historical data Medications aspirin [...] 01/14/22 21:32:00 EDT, Route to Pharmacy Electronically, [facility] # [facility], 149, cm, 01/09/22 13:12:00 [...] 30 tablet, 5 Refills, 11/12/21 9:33:00 EDT, [facility] # [facility], 149, cm, 10/18/21 12:13:00 EDT, Height, 68.9, kg, 12/21/20 8:52:00 EDT, Dry Weight Start Date: 11/12/21 Status: OrderedFLUoxetine 40 mg oral capsule 1 capsule, By Mouth, Daily, # 30 capsule, 5 Refills, [facility] # [facility], 149, cm, 02/06/22 9:42:00 EDT, Height, 68.5, kg, 11/19/21 15:42:00 EDT, Dry Weight Start Date: 02/11/22 Status: Orderedfurosemide 20 mg oral tablet 20 mg, 1, tablet, By Mouth, Daily, # 90 tablet, Refills 0, Tot. Refills 0, Maintenance, 02/21/22 12:19:00 EDT, Route to Pharmacy Electronically, [facility] # [facility], 149, cm, 02/21/22 11:30:00 EDT, Height, 74.4, kg, 02/12/22 14:46:00 EDT, Dry Weight Start Date: 02/21/22 Status: Orderedhydrocortisone 2.5% topical cream 1 application, Topically, 3 times a day, # 30 Gm, 1 Refills, Maintenance, 01/09/21 12:15:00 EDT, Cream, [facility] # [facility], 1 application Topically 3 times a day, 149.9, cm, 01/09/21 12:01:00 EDT, Height, 68.9, kg, 12/21/20 8:52:00 EDT, Dry Weight Start Date: 01/09/21 Status: OrderedHYDROmorphone 4 mg oral tablet 1 tablet = 4 mg, By Mouth, Every 8 hours, # 84 tablet, 0 Refills, Maintenance, 03/26/22 17:12:00 EDT, Tablet, [facility] # [...] tablet, 5 Refills, Maintenance, 04/08/22 12:28:00 EDT, [facility] # [facility], 149, cm, [...] 12/27/20 9:18:00 EDT, Route to Pharmacy Electronically, [facility], Partial fill upon patient [...] Confirmed Active Limitation due to Confirmed Active yhnrbkvdkh28, 16 Opiate use Confirmed Active Gastro-esophageal Confirmed Active reflux EGD [id number] Graves' disease Confirmed Active H/O fracture of wrist Confirmed 12/03/21 Active rt History of peripheral Confirmed 05/17/16 Active artery mnpdmi71 H/O compression Confirmed Active fracture of sacrum 2014 qyiryppscsw21 History of alcohol Confirmed Active abuse20, 21 H/O nausea Confirmed Active History of ischemic Confirmed 12/21/20 Active colitis History of breast Confirmed Active cancer Left, IDC, pT1c pN0, ER/[place] positive, Her-2/angelito negative, [id number], 23 History of (NSTEMI) Confirmed 11/10/15 Active 2015 DES24 S/P drug eluting Confirmed Active coronary stent placement Hyperkalemia Confirmed 03/08/19 Active Hyponatremia Confirmed Active Hypothyroidism Confirmed Active following radioiodine mxhamsa22 Impaired Fasting Confirmed 06/03/07 Active Yensylh56 Anemia, iron Confirmed Active deficiency neg colo 2018.neg egd 2020 per gi (greef) no addtl workuyp Low back pain Confirmed Active Failed back syndrome, Confirmed Active lumbar Lung nodules remote Confirmed Active , 28, 29 Lymphedema of both Confirmed Active lower extremities Depression, major30, Confirmed Active 31 Fx metatarsal rt Confirmed 04/27/19 Active second Nocturia Confirmed 10/18/21 Active Normocytic Confirmed Active normochromic , 33 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 Tvluhfmsbj46 Confirmed Active PAD (peripheral Confirmed Active artery disease)stenting 2015 Chronic prescription Confirmed Active opiate use Multiple falls REFER Confirmed 10/18/21 Active PT Sep 2021 Frequent PVCs brefer Confirmed 10/18/21 Active holter Vitamin D Deficiency Confirmed Active 1per gastroenterology;cdhdizw9Ulwkyzny to gastroenterology no-show for xdujtewyzff0rbf0 40%4chronic xiycvoirce1TWON:2 low jlihs6YREQ 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,[employer]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 seubaeb1lfnudn repeat sdx; injections,fentanyl,morphine,oxycodone er8Dr Oh no surgery re neck,wtds0wji Dr King,yesterday NO SURGERY, rx corsett,pool10 evaluated by two neurosurgeons,pain yfesqrvb80hfvgr xl05Stqmta 24-hour urine essmrfti91KXSS increased alpha2 fczavtzmh94arfmsq iron,ferrritin,cderloplasmin; neg HEP a,B,F02gdvlotm Oswestry Disability Index: 48% ( severe disability ) on 04/15/16; updated [place] Back Pain Scale:44 on 04/15/16; updated [place]: 7 on 04/15/1616Initial [place]estry Disability Index: 48% ( severe disability ) on 11/24/14; initial [place] Back Pain Scale: 48 on 11/24/14; initial [place]: 5 on 11/24/1516egd . Bilateral common femoral artery endarterectomy. 3. Left common femoral artery patch angioplasty with PTFE. 4. 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 CURRENT THERAPY: Tamoxifen started in 11/17/14, prior anastrozole 11/2012- 09/2014, zoledronic acid, received 02/2015 and 08/2015.92wqncx33Rgsdkglefzxrtp Summary Successful drug eluting stenting of the proximal LAD coronary artery with a 3.5X15 mm plus 3.0X8 mm Xience Alpine stents as described above. The second stent was needed to cover distal edge of th efirst stent in an overlapping fashion. 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
--- OUTSIDE RECORDS SUMMARY | 2022-06-11 12:45 | XMS_ITS | Continuity of Care Document ---
:1945 Author Organization [facility] Address [address] [place] [address]- Care Team Providers Name Role Phone Christina BAZAN, Chino Dao Primary Care Physician [facility] 01[facility]21 - 02/04/21 [facility] [address] [place] [address]- Allergies, Adverse Reactions, Alerts Substance Reaction Severity Status spironolactone1 Active lisinopril2 Active atorvastatin3 Active amLODIPine4 Active 0ohldd8qwdwxkm hlrnvatc9pgat1jvfat Immunizations Given and Recorded Vaccine Date Status [...] P atient Refuses 1Result Comment: [05/27/2017] [facility] [id number]/Late Reason: Wan to Standard Admin [id number] Note: #24Admin Note: historical data Medications aspirin [...] 01/09/21 12:32:00 EDT, Route to Pharmacy Electronically, [facility] # [facility], REPLACES METOPROLOL, 149.... Start Date: 01/09/21 Stop Date: 02/08/21 Status: Orderedcarvedilol 6.25 mg oral tablet 6.25 mg, 1, tablet, By Mouth, 2 times a day, for 30 days, REPLACES METOPROLOL, # 60 tablet, Refills 11, Tot. Refills 11, Acute 02/03/22 12:32:00 EDT, 02/08/21 12:32:00 EDT, Route to Pharmacy Electronically, [facility] # 50, REPLACES METOPROLOL, 14... Start Date: 02/08/21 Stop Date: 02/03/22 Status: Orderedchlorthalidone 25 mg oral tablet 25 mg, 1, tablet, By Mouth, Daily, # 30 tablet, Refills 1, Tot. Refills 1, Maintenance, 12/28/20 9:19:00 EDT, Route to Pharmacy Electronically, [facility] # 50, Partial fill [...] 5 Refills, Maintenance, 08/22/20 18:56:00 EST, Aerosol, [facility] # 50, 149.9, cm, 06/07/20 11:48:00 EST, Height, 68.9, kg, 07/12/19 14:56:00 EST, DryWeight Start Date: 08/22/20 Status: OrderedFLUoxetine 40 mg oral capsule 1 capsule = 40 mg, By Mouth, Daily, # 30 capsule, 5 Refills, Maintenance, 08/13/20 10:39:00 EST, Capsule, [facility] # 50, 149.9, cm, [...] 0 Refills, Maintenance, 01/16/21 10:45:00 EDT, Tablet, [facility] # [...] 5 Refills, Maintenance, 10/10/20 7:25:00 EDT, Tablet, [facility] # 50, 149.9, cm, 08/28/20 14:48:00 EST, Height, 68.9, kg, 07/12/19 14:56:00 EST, Dry Weight Start Date: 10/10/20 Status: OrderedoxyCODONE 5 mg oral tablet 5 mg, 1, tablet, By Mouth, Every 6 hours, PRN, # 5 tablet, Refills 0, Tot. Refills 0, Maintenance, Pain , Severe, 12/27/20 9:18:00 EDT, Route to Pharmacy Electronically, [facility], Partial fill upon patient [...] 01/22/21 11:44:00 EDT, Route to Pharmacy Electronically, [facility] # 50, 149, cm, 01/18/21 11:04:00 EDT, Height, 68.9, kg, 12/21/20 8:52:00 EDT, Dry Weight Start Date: 01/22/21 Status: Orderedrosuvastatin 10 mg oral capsule 1 capsule = 10 mg, By Mouth, Daily, # 30 capsule, 11 Refills, Maintenance, 08/29/20 15:01:00 EST, Capsule, [facility] # 50, Partial fill upon patient request if the prescription is for a schedule II opioid drug., 149.9, cm, 08/28/20 14:48:00 EST,... Start Date: 08/29/20 Status: OrderedTylenol 325 mg oral tablet 650 mg, 2, tablet, By Mouth, Every 4 hours, PRN, # 24 tablet, Refills 0, Tot. Refills 0, Maintenance, Pain , Mild, 12/27/20 9:18:00 EDT, Route to Pharmacy Electronically, [facility], Partial fill upon patient request if the prescription... 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 ouwwuug5uqlfbd repeat sdx; injections,fentanyl,morphine,oxycodone er8Dr Oh no surgery re neck,lzln4pgw Dr King,yesterday NO SURGERY, rx [facility]ett,pool10 evaluated by two neurosurgeons,pain dkpdqxfr27zbuna oq86Obsprj 24-hour urine akkiibmb57GBBI increased alpha2 iehngqsuk17rgzezb iron,ferrritin,cderloplasmin; neg HEP a,B,E21cjqwuwm Oswestry Disability Index: 48% ( severe disability ) on 04/15/16; updated [place] Back Pain Scale:44 on 04/15/16; updated [place]: 7 on 6Initial Oswestry Disability Index: 48% ( severe disability ) on 11/24/14; initial [place] Back Pain Scale: 48 on 11/24/14; initial [place]: 5 on [id number] [id number]. Bilateral common femoral artery endarterectomy. 3. Left common femoral artery patch angioplasty with PTFE. 4. 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 CURRENT THERAPY: Tamoxifen started in 11/17/14, prior anastrozole 11/2012- 09/2014, zoledronic acid, received 02/2015 and 08/2015.06nxnfx53Gdnhhcqpoxbxsp Summary Successful drug eluting stenting of the proximal LAD coronary artery with a 3.5X15 mm plus 3.0X8 mm Xience Alpine stents as described above. The second stent was needed to cover distal edge of th efirst stent in an overlapping fashion. 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
--- OUTSIDE RECORDS SUMMARY | 2022-06-11 12:45 | XMS_ITS | Continuity of Care Document ---
:1945 Author Organization [facility] Address [address] [address]- Care Team Providers Name Role Phone Christina BAZAN, Chino Dao Primary Care Physician [facility] 10[facility] - 11/29/21 [facility] [address] [place] [id number] Allergies, Adverse Reactions, Alerts Substance Reaction Severity Status spironolactone1 Active lisinopril2 Active atorvastatin3 Active thiazide diuretics4 Active amLODIPine5 Active 5yriis4ryiyowk osievxly3svex2utwwnhtvtelx3rbmys Immunizations Given and Recorded Vaccine Date Status [...] Not Given P atient Refuses 1Result Comment: [facility]: [id number] Comment: [facility]: [id number] Comment: [facility]: [id number] Comment: [05/27/2017] [facility] [id number] Early/Late Reason: Wan to Standard Admin Decwb6Hqwbm Note: #27Admin Note: historical data Medications aspirin [...] tablet, Refills 0, Route to Pharmacy Electronically, [facility] # 50, 149, cm, 10/16/21 14:48:00 EDT, Height, 68.9, kg, 12/21/20 8:52:00 EDT, Dry Weight Start Date: 10/17/21 Status: OrderedcloNIDine 0.1 mg oral tablet See Instructions, TAKE ONE TABLET BY MOUTH TWICE A DAY, # 60 tablet, Refills 5, Instructions ReplaceRequired Details, Route to Pharmacy Electronically, [facility] # [facility], 149, cm, 10/18/21 [...] 5 Refills, 11/12/21 9:33:00 EDT, [facility] # 50, 149, cm, 10/18/21 12:13:00 EDT, Height, 68.9, kg, 12/21/20 8:52:00 EDT, Dry Weight Start Date: 11/12/21 Status: OrderedFLUoxetine 40 mg oral capsule See Instructions, TAKE 1 CAPSULE BY MOUTH DAILY., # 30 capsule, 5 Refills, 08/15/21 13:23:00 EST, [facility] # 50, 149, cm, 08/15/21 11:10:00 EST, Height, 68.9, kg, 12/21/20 8:52:00 EDT, Dry Weight Start Date: 08/15/21 Status: Orderedhydrocortisone 2.5% topical cream 1 application, Topically, 3 times a day, # 30 Gm, 1 Refills, Maintenance, 01/09/21 12:15:00 EDT, Cream, [facility] # 50, 1 application Topically 3 times a day, 149.9, cm, 01/09/21 12:01:00 EDT, Height, 68.9, kg, 12/21/20 8:52:00 EDT, Dry Weight Start Date: 01/09/21 Status: OrderedHYDROmorphone 4 mg oral tablet 1 tablet = 4 mg, By Mouth, Every 8 hours, # 84 tablet, 0 Refills, Maintenance, 11/06/21 9:15:00 EDT,Tablet, [facility] # [...] tablet, 5 Refills, 10/11/21 14:05:00 EDT,[facility] # 50, 149, cm, 08/15/21 [...] Maintenance, 08/15/21 13:23:00 EST, Capsule, [facility] [...] 12/27/20 9:18:00 EDT, Route to Pharmacy Electronically, [facility], Partial fill upon patient request if the prescription... 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,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 tufcgqg0kxsjdo repeat sdx; injections,fentanyl,morphine,oxycodone er8Dr Oh no surgery re neck,fsjr4wdt Dr King,yesterday NO SURGERY, rx [facility],pool10 evaluated by two neurosurgeons,pain ixkgpdnl66ylqlp jf14Slamjv 24-hour urine dhzjuzcg41QYVU increased alpha2 pkdyopetw92vmxdia iron,ferrritin,cderloplasmin; neg HEP a,B,M06pufzkcx Oswestry Disability Index: 48% ( severe disability ) on 04/15/16; updated [place] Back Pain Scale:44 on 04/15/16; updated [place]: 7 on 04/15/1616Initial Oswestry Disability Index: 48% ( severe disability ) on 11/24/14; initial [place] Back Pain Scale: 48 on 11/24/14; initial [place]: 5 on 11/24/1516egd . Bilateral common femoral artery endarterectomy. 3. Left common femoral artery patch angioplasty with PTFE. 4. 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 CURRENT THERAPY: Tamoxifen started in 11/17/14, prior anastrozole 11/2012- 09/2014, zoledronic acid, received 02/2015 and 08/2015.18nepbo48Sucnvmuznzkkfe Summary Successful drug eluting stenting of the proximal LAD coronary artery with a 3.5X15 mm plus 3.0X8 mm Xience Alpine stents as described above. The second stent was needed to cover distal edge of th efirst stent in an overlapping fashion. 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
--- OUTSIDE RECORDS SUMMARY | 2022-06-11 12:45 | XMS_ITS | Continuity of Care Document ---
:1945 Author Organization [facility] Address [address] [place] [address]- Care Team Providers Name Role Phone Christina BAZAN, [place] Dao Primary Care Physician [facility] 02[facility]20 - 03/09/20 [facility] [address] [place] [address]- [facility] Allergies, Adverse Reactions, Alerts Substance Reaction Severity Status atorvastatin1 Active amLODIPine2 Active 7zute3mkkxv Immunizations Given and Recorded Vaccine Date Status [...] Given P atient Refuses 1Result Comment: [05/27/2017] [facility] [id number]/Late Reason: Wan to Standard Admin Aamsq8Bacxh Note: #24Admin Note: historical data Medications Aspirin = 81 mg, By Mouth, Daily, 0 Refills, Maintenance Start Date: 12/26/11 Status: OrderedBevespi Aerosphere 9 mcg-4.8 mcg/inh inhalation aerosol 2 puffs, Inhalation, 2 times a day, 4 by 28 doses lot [id number] 05-14, # 1 Doses, 11 Refills, Maintenance, 02/12/19 10:52:38 EDT, 2 puffs Inhalation 2 times a day,Instr:4 by 28 doses; lot [id number] 05-14 Start Date: 02/12/19 Status: Orderedcalcium (as carbonate) 500 mg oral tablet, chewable 1 tablet = 500 mg, Chew, Daily, # 150 tablet, 0 Refills, Maintenance, 09/21/19 14:07:00 EST, Chew Tablet Start Date: 09/21/19 Status: OrderedFlovent HFA 110 mcg/inh inhalation aerosol 2 puffs, Inhalation, 2 times a day, # 1 each, 5 Refills, Maintenance, 02/18/20 16:43:00 EDT, Aerosol, [facility] # 50, 149.9, cm, 02/14/20 11:11:00 EDT, Height, 68.9, kg, 07/12/19 14:56:00 EST, DryWeight Start Date: 02/18/20 Status: OrderedFLUoxetine 40 mg oral capsule 1 capsule = 40 mg, By Mouth, Daily, # 30 capsule, 5 Refills, Maintenance, 02/14/20 14:03:00 EDT, Capsule, [facility], 149.9, cm, 02/14/20 11:11:00 EDT, Height, 68.9, kg, 07/12/19 14:56:00 EST,Dry Weight Start Date: 02/14/20 Status: Orderedfurosemide 20 mg oral tablet 20 mg, 1, tablet, By Mouth, Daily, # 30 tablet, Refills 1, Tot. Refills 1, Maintenance, 02/08/20 7:20:00 EDT, Route to Pharmacy Electronically, [facility] # 50, 149.9, cm, 02/03/20 [...] hours, # 84 tablet, 0 Refills, Maintenance, 02/22/20 9:20:00 EDT,Tablet, [facility] # 50, partial fill upon request, 02/29/20, 149.9, cm, 02/14/20 11:11:00 EDT, Height, 68.9, kg, 07/12/19 14:56:00 EST, Dry Weight Start Date: 02/22/20 Stop Date: 03/21/20 Status: Orderedlevothyroxine 125 mcg (0.125 mg) oral tablet 1 tablet = 125 mcg, By Mouth, Daily, # 30 tablet, 5 Refills, Maintenance, 10/18/19 14:04:00 EDT, Tablet, [facility] # 50, 149.9, cm, 10/14/19 14:23:00 EDT, Height, 68.9, kg, 07/12/19 14:56:00 EST, Dry Weight Start Date: 10/18/19 Status: Orderedmetoprolol 25 mg oral tablet 25 mg, 1, tablet, By Mouth, 2 times a day, # 60 tablet, Refills 5, Tot. Refills 5, Maintenance, 02/14/20 14:03:00 EDT, Route to Pharmacy Electronically, [facility] # 50, 149.9, cm, 02/14/20 11:11:00 EDT, Height, 68.9, kg, 07/12/19 14:56:00 ESTDr... Start Date: 02/14/20 Status: Orderedpravastatin 20 mg oral tablet 20 mg, 1, tablet, By Mouth, Daily, # 30 tablet, Refills 5, Tot. Refills 5, Maintenance, 11/02/19 10:04:00 EDT, Route to Pharmacy Electronically, [facility] # 50, 149.9, cm, 10/14/19 14:23:00 EDT, Height, 68.9, kg, 07/12/19 14:56:00 EST, Dry Weight Start Date: 11/02/19 Status: OrderedPriLOSEC OTC 20 mg oral delayed release tablet 1 tablet = 20 mg, By Mouth, Daily, # 90 tablet, 0 Refills, Maintenance, 02/08/20 7:20:00 EDT, CR Tablet, [facility] # 50, 149.9, cm, 02/03/20 [...] Replace Required Details, Route to Pharmacy Electronically, [facility] # 50, 149.9, cm, 10/14/19 14:23:00 EDT, Height, 68.9, kg, 1... 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 dszzuea6kwjsrb repeat sdx; injections,fentanyl,morphine,oxycodone er8Dr Oh no surgery re neck,ystq8odm Dr King,yesterday NO SURGERY, rx corsett,pool10 evaluated by two neurosurgeons,pain xtagnabp43yvuid uq25Keroph 24-hour urine jooxdnjb85SKKG increased alpha2 xkccexsty33jrnpdn iron,ferrritin,cderloplasmin; neg HEP a,B,A95owxybfa Oswestry Disability Index: 48% ( severe disability ) on 04/15/16; updated [place] Back Pain Scale:44 on 04/15/16; updated [place]: 7 on 04/15/1616Initial Oswestry Disability Index: 48% ( severe disability ) on 11/24/14; initial [place] Back Pain Scale: 48 on 11/24/14; initial [place]: 5 on 11/24/1516egd . Bilateral common femoral artery endarterectomy. 3. Left common femoral artery patch angioplasty with PTFE. 4. 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 CURRENT THERAPY: Tamoxifen started in 11/17/14, prior anastrozole 11/2012- 09/2014, zoledronic acid, received 02/2015 and 08/2015.94psgqy86Wvcehbnysmrtvk Summary Successful drug eluting stenting of the proximal LAD coronary artery with a 3.5X15 mm plus 3.0X8 mm Xience Alpine stents as described above. The second stent was needed to cover distal edge of th efirst stent in an overlapping fashion. 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
--- OUTSIDE RECORDS SUMMARY | 2022-06-11 12:45 | XMS_ITS | Continuity of Care Document ---
:1945 Author Organization [facility] Adult Address [address] [place] [address]- Care Team Providers Name Role Phone Chino Vasquez MD Primary Care Physician Encounter [facility] [place] Date(s): 11/02/19 - 11/09/19 [facility] [address] [place] [address]- [facility] Encounter Diagnosis PAD (peripheral artery disease)stenting 2016 (Discharge Diagnosis) - 11/02/19 Essential familial hyperlipidemia (Discharge Diagnosis) - 11/02/19 Attending Physician: Chino Vasquez MD Allergies, Adverse Reactions, Alerts Substance Reaction Severity Status atorvastatin1 Active amLODIPine2 Active 7hoxw1ebgbq Immunizations Given and Recorded Vaccine Date Status [...] P atient Refuses 1Result Comment: [05/27/2017] [facility] [id number]/Late Reason: Wan to Standard Admin Sumgd5Cicsk Note: #24Admin Note: historical data Medications Aspirin = 81 mg, By Mouth, Daily, 0 Refills, Maintenance Start Date: 12/26/11 Status: OrderedBevespi Aerosphere 9 mcg-4.8 mcg/inh inhalation aerosol 2 puffs, Inhalation, 2 times a day, 4 by 28 doses lot [id number] 05-14, # 1 Doses, 11 Refills, Maintenance, 02/12/19 10:52:38 EDT, 2 puffs Inhalation 2 times a day,Instr:4 by 28 doses; lot [id number] 05-14 Start Date: 02/12/19 Status: Orderedcalcium (as [...] 10/15/19 9:40:00 EDT, Route to Pharmacy Electronically, [facility] # [facility], 149.9, cm, 10/14/19 [...] hours, # 84 tablet, 0 Refills, Maintenance, 11/08/19 8:49:00 EDT,Tablet, [facility] # 50, partial fill upon request, 11/09/19, 149.9, cm, 10/14/19 14:23:00 EDT, Height, 68.9, kg, 07/12/19 14:56:00 EST, Dry Weight Start Date: 11/08/19 Stop Date: 12/06/19 Status: Orderedlevothyroxine 125 mcg (0.125 mg) oral tablet 1 tablet = 125 mcg, By Mouth, Daily, # 30 tablet, 5 Refills, Maintenance, 10/18/19 14:04:00 EDT, Tablet, [facility] # [facility], 149.9, cm, 10/14/19 14:23:00 EDT, Height, 68.9, kg, 07/12/19 14:56:00 EST, Dry Weight Start Date: 10/18/19 Status: Orderedmetoprolol 25 mg oral tablet 25 mg, 1, tablet, By Mouth, 2 times a day, # 60 tablet, Refills 5, Tot. Refills 5, Maintenance, 08/16/19 11:35:00 EST, Route to Pharmacy Electronically, [facility] # [facility], 149.9, cm, 07/19/19 9:45:00EST, Height, 68.9, kg, 07/12/19 14:56:00 EST, Dry... Start Date: 08/16/19 Status: OrderedPlavix 75 mg oral tablet 75 mg, 1, tablet, By Mouth, Daily in AM, # 30 tablet, Refills 5, Tot. Refills 5, Maintenance, 08/17/19 8:35:00 EST, Route to Pharmacy Electronically, [facility] # 50, 149.9, cm, 07/19/19 9:45:00 EST, Height, 68.9, kg, 07/12/19 14:56:00 EST, Dry We... Start Date: 08/17/19 Status: Orderedpravastatin 20 mg oral tablet 20 mg, 1, tablet, By Mouth, Daily, # 30 tablet, Refills 5, Tot. Refills 5, Maintenance, 11/02/19 10:04:00 EDT, Route to Pharmacy Electronically, [facility] # 50, 149.9, cm, 10/14/19 14:23:00 EDT, Height, 68.9, kg, 07/12/19 14:56:00 EST, Dry Weight Start Date: 11/02/19 Status: OrderedPriLOSEC OTC 20 mg oral delayed release tablet 1 tablet = 20 mg, By Mouth, Daily, # 90 tablet, 1 Refills, Maintenance, 08/17/19 10:42:00 EST, CR Tablet, [facility] # 50, 149.9, cm, 07/19/19 [...] Replace Required Details, Route to Pharmacy Electronically, [facility] # [facility], 149.9, cm, 10/14/19 14:23:00 EDT, Height, 68.9, kg, 1... Start Date: 10/15/19 Status: OrderedVentolin HFA 108 mcg/inh inhalation aerosol with adapter 2 puffs, Inhalation, 4 times a day, PRN for wheezing, # 1 each, 5 Refills, Maintenance, 10/11/19 21:30:00 EDT, Aerosol, [facility], 149.9, cm, 10/01/19 10:42:00 [...] 11 Refills, Maintenance, 11/08/19 8:36:00 EDT, Tablet, [facility] # 50, 149.9, cm, 10/14/19 14:23:00 [...] Active use(Confirmed) Vitamin D Deficiency(Confirmed) Active 1per gastroenterology;blmfsvv4Sibpxern to gastroenterology no-show for aiiiqcdavyu0imu8 40%4chronic bqvxdvemnh8QNEG:2 low zbxit1VRCR test done,[employer] maupyim5oaarkz repeat sdx; injections,fentanyl,morphine,oxycodone er8Dr Oh no surgery re neck,cvku9ojk Dr King,yesterday NO SURGERY, rx corsett,pool10 evaluated by two neurosurgeons,pain wdybzpgz07tczck wt14Koabja 24-hour urine wkicjggk16BTVO increased alpha2 hktinytmk52lyicjg iron,ferrritin,cderloplasmin; neg HEP a,B,I94qehqvaj Oswestry Disability Index: 48% ( severe disability ) on 04/15/16; updated [place] Back Pain Scale:44 on 04/15/16; updated [place]: 7 on 6Initial Oswestry Disability Index: 48% ( severe disability ) on 11/24/14; initial [place] Back Pain Scale: 48 on 11/24/14; initial [place]: 5 on 11/24/1516egd . Bilateral common femoral artery endarterectomy. 3. Left common femoral artery patch angioplasty with PTFE. 4. 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 CURRENT THERAPY: Tamoxifen started in 11/17/14, prior anastrozole 11/2012- 09/2014, zoledronic acid, received 02/2015 and 08/2015.32wbwle93Nsbrothzvxcvbu Summary Successful drug eluting stenting of the proximal LAD coronary artery with a 3.5X15 mm plus 3.0X8 mm Xience Alpine stents as described above. The second stent was needed to cover distal edge of th efirst stent in an overlapping fashion. The stents were post-dilated using a 3.5 mm non-compliant balloon.25 now hyperthyroid,exopthalmous;Dr MurphyPtxpki40gdqixpg pre diabetes increased risk rbcnkwwc05imglcz14ea stable;recheck 12 togvgo21qezed lung nodules on neck CT recheck 6 jlhhwz99GMZ0j qae16HEm2 four low zlzhh81oymr normal,b12 low dohuso48 fit terst ghp27vfmnkol D deficiency;correcting Diagnosis Diagnosis Type Effective Dates Health Clinical Infor mant Status Service PAD (peripheral Discharge 11/02/19 artery Diagnosis disease)stenting 2016 Essential familial Discharge 11/02/19 hyperlipidemia Diagnosis Social History Social History Type Response 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
--- OUTSIDE RECORDS SUMMARY | 2022-06-11 12:45 | XMS_ITS | Continuity of Care Document ---
:1945 Author Organization [facility] Adult Address [address] [place] [address]- Care Team Providers Name Role Phone Christina BAZAN, Chino Dao Primary Care Physician Encounter [facility] Date(s): 06/21/20 - 07/21/20 [facility] [address] [place] [address]- Attending Physician: Admtr, Ar8 Allergies, Adverse Reactions, Alerts Substance Reaction Severity Status atorvastatin1 Active amLODIPine2 Active 0sreu1tebnv Immunizations Given and Recorded Vaccine Date Status [...] (oldterm) 08/04/09 Given Influenza Virus Vaccine (oldterm) 11/7/08 Given Influenza Inactive (IM) (oldterm) 06/03/07 Given tetanus-diphtheria toxoids (Td) 12/01/06 Given Pneumococcal Vaccine (oldterm)4 06/03/98 Given Not Given Vaccine Date Status Refusal Reason pneumococcal 23-valent vaccine 08/13/14 Not Given P atient Refuses 1Result Comment: [05/27/2017] [facility] [phone]/Late Reason: Wan to Standard Admin Suqdp1Wfzub Note: #24Admin Note: historical data Medications Aspirin = 81 mg, By Mouth, Daily, 0 Refills, Maintenance Start Date: 12/26/11 Status: OrderedBevespi Aerosphere 9 mcg-4.8 mcg/inh inhalation aerosol 2 puffs, Inhalation, 2 times a day, 4 by 28 doses, # 5.9 Gm, 11 Refills, Maintenance, 04/25/20 11:19:00 EDT, [facility] # [facility], 2 puffs Inhalation 2 [...] 5 Refills, Maintenance, 02/18/20 16:43:00 EDT, Aerosol, [facility], 149.9, cm, 02/14/20 11:11:00 EDT, Height, 68.9, kg, 07/12/19 14:56:00 EST, DryWeight Start Date: 02/18/20 Status: OrderedFLUoxetine 40 mg oral capsule 1 capsule = 40 mg, By Mouth, Daily, # 30 capsule, 5 Refills, Maintenance, 02/14/20 14:03:00 EDT, Capsule, [facility] # 50, 149.9, cm, 02/14/20 11:11:00 EDT, Height, 68.9, kg, 07/12/19 14:56:00 EST,Dry Weight Start Date: 02/14/20 Status: Orderedfurosemide 20 mg oral tablet 20 mg, 1, tablet, By Mouth, Daily, # 30 tablet, Refills 2, Tot. Refills 2, Maintenance, 07/03/20 12:15:00 EST, Route to Pharmacy Electronically, [facility] # 50, 149.9, cm, 06/07/20 [...] tablet, 0 Refills, Maintenance, 07/11/20 8:01:00 EST,Tablet, [facility] # 50, partial fill upon request, 07/18/20, 149.9, cm, 06/07/20 11:48:00 EST, Height, 68.9, kg, 07/12/19 14:56:00 EST, Dry Weight Start Date: 07/11/20 Stop Date: 08/08/20 Status: Orderedlevothyroxine 125 mcg (0.125 mg) oral tablet 1 tablet = 125 mcg, By Mouth, Daily, # 30 tablet, 5 Refills, Maintenance, 04/17/20 13:45:00 EDT, Tablet, [facility] # 50, 149.9, cm, 02/14/20 11:11:00 EDT, Height, 68.9, kg, 07/12/19 14:56:00 EST, Dry Weight Start Date: 04/17/20 Status: Orderedmetoprolol 25 mg oral tablet 25 mg, 1, tablet, By Mouth, 2 times a day, # 60 tablet, Refills 5, Tot. Refills 5, Maintenance, 02/14/20 14:03:00 EDT, Route to Pharmacy Electronically, [facility] # 50, 149.9, cm, 02/14/20 11:11:00 EDT, Height, 68.9, kg, 07/12/19 14:56:00 EST, . Start Date: 02/14/20 Status: Orderedpravastatin 20 mg oral tablet 20 mg, 1, tablet, By Mouth, Daily, # 30 tablet, Refills 5, Tot. Refills 5, Maintenance, 11/02/19 10:04:00 EDT, Route to Pharmacy Electronically, [facility] # 50, 149.9, cm, 10/14/19 14:23:00 EDT, Height, 68.9, kg, 07/12/19 14:56:00 EST, Dry Weight Start Date: 11/02/19 Status: OrderedPriLOSEC OTC 20 mg oral delayed release tablet 1 tablet = 20 mg, By Mouth, Daily, # 90 tablet, 0 Refills, Maintenance, 05/09/20 9:35:00 EDT, CR Tablet, [facility] # 50, 149.9, cm, 02/14/20 11:11:00 EDT, Height, 68.9, kg, 07/12/19 14:56:00 EST, Dry Weight Start Date: 05/09/20 Status: OrderedVentolin HFA 108 mcg/inh inhalation aerosol with adapter 2 puffs, Inhalation, 4 times a day, PRN for wheezing, # 1 each, 5 Refills, Maintenance, 04/25/20 11:09:00 EDT, Aerosol, [facility] # 50, 149.9, cm, 02/14/20 [...] Active use(Confirmed) Vitamin D Deficiency(Confirmed) Active 1per gastroenterology;eceieyw4Tmzoyacw to gastroenterology no-show for mhzhehzusps1way8 40%4chronic xedoexmnxn2IRDD:2 low stljd1MMSB test done,[employer] sylamkr5wylnkd repeat sdx; injections,fentanyl,morphine,oxycodone er8Dr Oh no surgery re neck,txop4gsn Dr King,yesterday NO SURGERY, rx corsett,pool10 evaluated by two neurosurgeons,pain nxvseuod57snelo ls02Oprihk 24-hour urine luquehni89SJNX increased alpha2 oltyyezns65uflkvo iron,ferrritin,cderloplasmin; neg HEP a,B,J33cgawwkd Oswestry Disability Index: 48% ( severe disability ) on 04/15/16; updated [place] Back Pain Scale:44 on 04/15/16; updated [place]: 7 on 04/15/1616Initial [place]estry Disability Index: 48% ( severe disability ) on 11/24/14; initial [place] Back Pain Scale: 48 on 11/24/14; initial [place]: 5 on 11/24/1516egd . Bilateral common femoral artery endarterectomy. 3. Left common femoral artery patch angioplasty with PTFE. 4. 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 CURRENT THERAPY: Tamoxifen started in 11/17/14, prior anastrozole 11/2012- 09/2014, zoledronic acid, received 02/2015 and 08/2015.80demjj47Lqvzbecxsaxcze Summary Successful drug eluting stenting of the proximal LAD coronary artery with a 3.5X15 mm plus 3.0X8 mm Xience Alpine stents as described above. The second stent was needed to cover distal edge of th efirst stent in an overlapping fashion. The stents were post-dilated using a 3.5 mm non-compliant balloon.25 now hyperthyroid,exopthalmous;Dr MurphyUlqrul23eqnknhr pre diabetes increased risk eewfkchn28lnuago48iz stable;recheck 12 mfqpoq20nzmpq lung nodules on neck CT recheck 6 xesscf40EAV4t jpl50NGa1 four low bydwz32jkbf normal,b12 low pibpxn[address] xai92ptstlpc D deficiency;correcting Procedures Procedure Date Related Diagnosis [...] scoliosis. 4. 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
--- OUTSIDE RECORDS SUMMARY | 2022-06-11 12:46 | XMS_ITS | Continuity of Care Document ---
:1945 Author Organization [facility] Address [address] [place] [address]- Care Team Providers Name Role Phone Christina BAZAN, Chino Dao Primary Care Physician [place] [facility] [place] - 04/09/[address] [address]- Encounter Diagnosis Acute knee pain (Final) - 04/08/22 Discharge Disposition: A-D/C Home Attending Physician: Kadeem Enriquez MD Admitting Physician: Kadeem Enriquez MD Referring Physician: Not on Staff, Referring MD Allergies, Adverse Reactions, Alerts Substance Reaction Severity Status spironolactone1 Active lisinopril2 Active atorvastatin3 Active thiazide diuretics4 Active amLODIPine5 Active 6sqoei8jphsarz bugvvcpc6sbqv2clygigqjafuo8mfxmt Immunizations Given and Recorded Vaccine Date Status [...] Not Given P atient Refuses 1Result Comment: [facility] [place]: [phone] Comment: [facility] [place]: [phone] Comment: [facility] [facility] [place]: [phone] Comment: [05/27/2017] [facility] [place] [phone] Early/Late Reason: Wan to Standard Admin [id number] Note: #27Admin Note: historical data Medications aspirin [...] 21:32:00 EDT, Route to Pharmacy Electronically, [facility], 149, cm, 01/09/22 13:12:00 EDT, Height, 68.5, kg, 11/19/21 15:42:00 EDT, Dry Weight Start Date: 01/14/22 Status: Orderedcarvedilol 25 mg oral tablet 25 mg, Tablet, By Mouth, 04/08/22 21:00:00 EDT Start Date: 04/08/22 Stop Date: 04/08/22 Status: Completeddocusate sodium 100 mg oral capsule 100 mg, 1, capsule, By Mouth, Daily, PRN, Maintenance, as needed for constipation, 12/21/20 16:05:00EDT, ; Start Date: 12/21/20 Status: Orderedezetimibe 10 mg oral tablet See Instructions, TAKE ONE TABLET BY MOUTH EVERY DAY, # 30 tablet, 5 Refills, 11/12/21 9:33:00 EDT, [facility] # 50, 149, cm, 10/18/21 12:13:00 EDT, Height, 68.9, kg, 12/21/20 8:52:00 EDT, Dry Weight Start Date: 11/12/21 Status: OrderedFLUoxetine 40 mg oral capsule 1 capsule, By Mouth, Daily, # 30 capsule, 5 Refills, [facility] # 50, 149, cm, 02/06/22 9:42:00 EDT, Height, 68.5, kg, 11/19/21 15:42:00 EDT, Dry Weight Start Date: 02/11/22 Status: Orderedfurosemide 20 mg oral tablet 20 mg, 1, tablet, By Mouth, Daily, # 90 tablet, Refills 0, Tot. Refills 0, Maintenance, 02/21/22 12:19:00 EDT, Route to Pharmacy Electronically, [facility] # [facility], 149, cm, 02/21/22 11:30:00 EDT, Height, 74.4, kg, 02/12/22 14:46:00 EDT, Dry Weight Start Date: 02/21/22 Status: Orderedhydrocortisone 2.5% topical cream 1 application, Topically, 3 times a day, # 30 Gm, 1 Refills, Maintenance, 01/09/21 12:15:00 EDT, Cream, [facility] # [facility], 1 application Topically 3 times a day, 149.9, cm, 01/09/21 12:01:00 EDT, Height, 68.9, kg, 12/21/20 8:52:00 EDT, Dry Weight Start Date: 01/09/21 Status: OrderedHYDROmorphone 4 mg oral tablet 1 tablet = 4 mg, By Mouth, Every 8 hours, # 84 tablet, 0 Refills, Maintenance, 03/26/22 17:12:00 EDT, Tablet, [facility] # 50, partial fill upon request, 04/01/22, 149, cm, 03/21/22 8:09:00 EDT, Height, 74.4, kg, 02/12/22 14:46:00 EDT, Dry Weight Start Date: 03/26/22 Stop Date: 04/23/22 Status: OrderedHYDROmorphone 4 mg oral tablet 4 mg, Tablet, By Mouth, 04/09/22 1:00:00 EDT Start Date: 04/09/22 Stop Date: 04/08/22 Status: CompletedImodium A-D 2 mg, By Mouth, Refills 0, Maintenance, 01/09/21 15:24:00 EDT, Partial fill upon patient request if the prescription is for a schedule II opioid drug. Start Date: 01/09/21 Status: Orderedlevothyroxine 125 mcg (0.125 mg) oral tablet See Instructions, TAKE ONE TABLET BY MOUTH EVERY DAY, # 30 tablet, 5 Refills, Maintenance, 04/08/22 12:28:00 EDT, [facility] # [facility], 149, cm, 03/21/22 [...] Refills, Maintenance, 08/15/21 13:23:00 EST, Capsule, [facility] [...] 12/27/20 9:18:00 EDT, Route to Pharmacy Electronically, [facility], Partial fill upon patient request if the prescription... Start Date: 12/27/20 Status: OrderedVentolin HFA 108 mcg/inh inhalation aerosol with adapter See Instructions, INHALE 2 PUFFS FOUR TIMES A DAY NEEDED FOR WHEEZING, # 18 Gm, 5 Refills, [facility] # 50, 149, cm, 11/19/21 14:57:00 [...] breast cancer Left, IDC, Active pT1c pN0, ER/ID positive, Her-2/angelito negative, 2012(Confirmed)22, 23 History of [...] 10/18/21 Active Vitamin D Deficiency(Confirmed) Active 1per gastroenterology;acurwfo7Vmkvewqv to gastroenterology no-show for yttdbpbusub3iqn3 40%4chronic gywnndqqyn9QTFV:2 low npebt2BLPQ test done,MASS INDUSTRIAL ECOLOGY TECHNICIAN qworgpg0aurash repeat sdx; injections,fentanyl,morphine,oxycodone er8Dr Oh no surgery re neck,nimr3gfl Dr King,yesterday NO SURGERY, rx corsett,pool10 evaluated by two neurosurgeons,pain nydjluwh31txpok fm39Owyquf 24-hour urine ofdrtawc07EOSK increased alpha2 lxxbchtyf03sqkxhj iron,ferrritin,cderloplasmin; neg HEP a,B,H14bntccgx Oswestry Disability Index: 48% ( severe disability ) on 04/15/16; updated [place] Back Pain Scale:44 on 04/15/16; updated [place]: 7 on 04/15/1616Initial Oswestry Disability Index: 48% ( severe disability ) on 11/24/14; initial [place] Back Pain Scale: 48 on 11/24/14; initial [place]: 5 on 11/24/1516egd . Bilateral common femoral artery endarterectomy. 3. Left common femoral artery patch angioplasty with PTFE. 4. 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 CURRENT THERAPY: Tamoxifen started in 11/17/14, prior anastrozole 11/2012- 09/2014, zoledronic acid, received 02/2015 and 08/2015.20jatue96Vpzcqxnheqfqzr Summary Successful drug eluting stenting of the proximal LAD coronary artery with a 3.5X15 mm plus 3.0X8 mm Xience Alpine stents as described above. The second stent was needed to cover distal edge of th efirst stent in an overlapping fashion. The stents were post-dilated using a 3.5 mm non-compliant balloon.25 now hyperthyroid,exopthalmous;Dr MurphyPlgjah20qaupejl pre diabetes increased risk jhrvctvg82gydfzx90tj stable;recheck 12 xdbqlz48oiwyq lung nodules on neck CT recheck 6 kijfke10XGY3t zvu67VAy4 four low wfjoi71wcrv normal,b12 low crscye15 fit ter[address] grx96ckwjlkn D deficiency;correcting Procedures Procedure Date Related Diagnosis Body Site Status CT of lower leg rt1 04/07/22 Complete d 1Bones and joints: No acute displaced fracture or dislocation is seen. There is mild medial and lateral compartment joint space narrowing. There is mild lateral tilt of the patella with narrowing of thelateral aspect of the patellofemoral joint. Soft Tissues: No evidence of a knee joint effusion. There is subcutaneous edema in the anteromedial aspect of the knee and mild anterior infrapatellar subcutaneous edema. There is a small Alguerre's cyst.Included musculature appears unremarkable for the CT technique. IMPRESSION: Mild degenerative change in the right knee with no acute fracture. Nonspecific subcutaneous edema. Results Radiology Reports Exam Date Time Procedure Performing Provider Status 04/07/22 12:04 PM Knee 1 or 2 Views Right Yolanda Amin; Auth (Verified) Notes:(Knee 1 or 2 Views Right) Reason For Exam: TraumaRESULT: Knee 1 or 2 Views Right Right knee 2 views dated April 07, 2022. No prior studies are available. HISTORY: Pain. FINDINGS: This examination shows no evidence of fracture or dislocation. Joint spaces are fairly well-preserved. A joint effusion is seen. IMPRESSION: No evidence of fracture or dislocation. Examination [address]40[address]. Thank you for allowing me to participate in the care of this patient. WSN: [id number] Ordering Physician: Adilia Schultz Dictated By: Osorio Lal MD Dictated Date/Time: 04/07/22 12:15 p Reviewed By: Osorio Lal MD Signed By: Osorio Lal MD Signed Date/Time: 04/07/22 12:15 pm Transcribed By: MARIBEL Transcribed Date/Time: 04/07/22 12:15 pm Exam Date Time Procedure Performing Provider Status 04/07/22 12:04 PM XR Hip w/Pelvis 2-3 View Right Deepika Amin (Verified) Notes:(XR Hip w/Pelvis 2-3 View Right) Reason For Exam: TraumaRESULT: XR Hip w/Pelvis 2-3 View Right AP pelvis and right hip 3 views dated April 07, 2022. Comparison films are from January 07, 2017. HISTORY: Pain. FINDINGS: This examination shows no evidence of fracture or dislocation. Mild arthritic changes are present in the hips. There are postoperative changes in the lower lumbar spine and sacrum. Calcifications are consistent with calcified uterine fibroids. IMPRESSION: No evidence of acute osseous abnormality. Thank you for allowing me to participate in the care of this patient. WSN: [id number] Ordering Physician: Adilia Schultz Dictated By: Osorio Lal MD Dictated Date/Time: 04/07/22 12:15 p Reviewed By: Osorio Lal MD Signed By: Osorio Lal MD Signed Date/Time: 04/07/22 12:15 pm Transcribed By: MARIBEL Transcribed Date/Time: 04/07/22 12:14 pm Vital Signs Most recent to oldest 1 2 3 [Reference Range]: Oxygen Saturation [94-100 %] 99 % 98 % 97 % (04/09/22 10:37 AM) (04/08/22 10:53 PM) (04/08/22 9 :00 PM) Pulse Rate [55-90 bpm] 70 bpm 78 bpm 68 bpm (04/09/22 10:37 AM) (04/08/22 11:42 PM) (04/08/22 1 0:53 PM) Blood Pressure [90-138/55-84 132/71 mm Hg 142/74 mm Hg 120 /53 mm Hg mm Hg] (04/09/22 10:37 AM) *H* (04/08/22 10:5 3 PM) (04/08/22 11:42 PM) Respiratory Rate [16-30 17 br/min 20 br/min 18 br/mi n br/min] (04/09/22 10:37 AM) (04/08/22 11:42 PM) (04/08/22 1 0:53 PM) Temperature [96.8-100.4 98.2 DegF 98.7 DegF DegF] (04/07/22 11:27 AM) (04/07/22 9:07 AM) Mode of Delivery (Oxygen) Room air Room air Room a ir (04/09/22 10:37 AM) (04/08/22 11:42 PM) (04/08/22 1 0:53 PM) Blood pressure sites Arm, left Arm, left Arm, left (04/08/22 9:00 PM) (04/08/22 5:39 PM) (04/08/22 3:0 0 PM) Temperature Route Oral Oral (04/07/22 11:27 AM) (04/07/22 9:07 AM) Social History Social History Type Response 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 Comparison films are from January 07, 2017. HISTORY: Pain. FINDINGS: This examination shows no evidence of fracture or dislocation. Mild arthritic changes are present in the hips. There are postoperative changes in the lower lumbar spine and sacrum. Calcifications are consistent with calcified uterine fibroids. IMPRESSION: No evidence of acute osseous abnormality. Thank you for allowing me to participate in the care of this patient. WSN: [id number] Ordering Physician: Adilia Schultz Dictated By: Osorio Lal MD Dictated Date/Time: 04/07/22 12:15 p Reviewed By: Osorio Lal MD Signed By: Osorio Lal MD Signed Date/Time: 04/07/22 12:15 pm Transcribed By: MARIBEL Transcribed Date/Time: 04/07/22 12:14 pm XR Knee - right 1 or 2 Views BHSPowerabdias , CIS S: TRANSCRIBE Osorio Lal MD: VERIFY Event Display: Result: Authored Date: [id number] Right knee 2 views dated April 07, 2022. No prior studies are available. HISTORY: Pain. FINDINGS: This examination shows no evidence of fracture or dislocation. Joint spaces are fairly well-preserved. A joint effusion is seen. IMPRESSION: No evidence of fracture or dislocation. Examination 50074. Thank you for allowing me to participate in the care of this patient. WSN: [id number] Ordering Physician: Adilia Schultz Dictated By: Osorio Lal MD Dictated Date/Time: 04/07/22 12:15 p Reviewed By: Osorio Lal MD Signed By: Osorio Lal MD Signed Date/Time: 04/07/22 12:15 pm Transcribed By: MARIBEL Transcribed Date/Time: 04/07/22 12:15 pm Care Team PersonnelName: Christina BAZAN, Chino Dao Address: [address] [place] [id number]
--- OUTSIDE RECORDS SUMMARY | 2022-06-11 12:46 | XMS_ITS | Continuity of Care Document ---
:1945 Author Organization [facility] Address [address] [place] [address]- Care Team Providers Name Role Phone Christina BAZAN, Chino Dao Primary Care Physician Encounter [facility] Date(s): 07/19/19 - 07/19/[address] [address]- [facility] Attending Physician: Rosy Alvares NP Allergies, Adverse [...] P atient Refuses 1Result Comment: [05/27/2017] [facility] [phone]/Late Reason: Wan to Standard Admin [id number] Note: #24Admin Note: historical data Medications amLODIPine 10 mg oral tablet 10 mg, 1, tablet, By Mouth, Daily, # 30 tablet, Refills 11, Tot. Refills 11, Maintenance, 08/10/18 11:54:38 EST, Route to Pharmacy Electronically, [id number], [facility] Start Date: 08/10/18 Status: OrderedAspirin = 81 mg, By Mouth, Daily, 0 Refills, Maintenance Start Date: 12/26/11 Status: OrderedBevespi Aerosphere 9 mcg-4.8 mcg/inh inhalation aerosol 2 puffs, Inhalation, 2 times a day, 4 by 28 doses lot [id number] 05-14, # 1 Doses, 11 Refills, Maintenance, 02/12/19 10:52:38 EDT, 2 puffs Inhalation 2 times a day,Instr:4 by 28 doses; lot [id number] 05-14 Start Date: 02/12/19 Status: OrderedFlovent HFA [...] tablet, 0 Refills, Maintenance, 07/13/19 9:03:00 EST,Tablet, [facility] # [...] 06/14/19 13:25:57 EST, Route to Pharmacy Electronically, [id number], [facility] Start Date: 06/14/19 Status: OrderedPlavix 75 mg oral tablet 75 mg, 1, tablet, By Mouth, Daily in AM, # 30 tablet, Refills 5, Tot. Refills 5, Maintenance, 02/17/19 10:47:40 EDT, Route to Pharmacy Electronically, [id number], 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 psvgymc3loumho repeat sdx; injections,fentanyl,morphine,oxycodone er10Dr Oh no surgery re neck,hxwe27vao Dr King,yesterday NO SURGERY, rx corsett,vpmj62yvpazjkwk by two neurosurgeons,pain zmdhdtkk58yytbp ye45Nnrovv 24-hour urine tsqcvhuy65TWSQ increased alpha2 hxxxbebaj66mqsbqo iron,ferrritin,cderloplasmin; neg HEP a,B,C17 updated Oswestry Disability Index: 48% ( severe disability ) on 04/15/16; updated [place] Back Pain Scale:44 on 04/15/16; updated [place]: 7 on 04/15/1618Initial Oswestry Disability Index: 48% ( severe disability ) on 11/24/14; initial [place] Back Pain Scale: 48 on 11/24/14; initial [place]: 5 on 11/24/1518egd [id number]. Bilateral common femoral artery endarterectomy. 3. Left common femoral artery patch angioplasty with PTFE. 4. Tiru-ab-wlxxs femoral-femoral bypass with 8-mm ringed PTFE tjnyp74ethaczq 20140829in ID25ewwed55Fwfaikqflzqbup Summary Successful drug eluting stenting of the proximal LAD coronary artery with a 3.5X15 mm plus 3.0X8 mm Xience Alpine stents as described above. The second stent was needed to cover distal edge of th efirst stent in an overlapping fashion. 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
--- OUTSIDE RECORDS SUMMARY | 2022-06-11 12:46 | XMS_ITS | Continuity of Care Document ---
:1945 Author Organization [facility] Address [address] [place] [address]- Care Team Providers Name Role Phone Chino Vasquez MD Primary Care Physician En[place] [facility] [place] Date(s): 02/06/22 - 02/13/22 [facility] [address] [place] [address]- Encounter Diagnosis Lower leg edema (Discharge Diagnosis) - 02/06/22 Attending Physician: Chino Vasquez MD Allergies, Adverse Reactions, Alerts Substance Reaction Severity Status spironolactone1 Active lisinopril2 Active atorvastatin3 Active thiazide diuretics4 Active amLODIPine5 Active 9llcfx2mkgvsfd fgbuzliv8dwku7lbobmpospbcz5mlfxj Immunizations Given and Recorded Vaccine Date Status [...] Given P atient Refuses 1Result Comment: [facility]: [phone] Comment: [facility]: [phone] Comment: [facility]: [phone] Comment: [05/27/2017] [facility] [phone] Early/Late Reason: Wan to Standard Admin Cgavm3Pnocr Note: #27Admin Note: historical data Medications aspirin [...] [facility], 149, cm, 01/09/22 13:12:00 EDT, Height, 68.5, kg, 11/19/21 15:42:00 EDT, Dry Weight Start Date: 01/14/22 Status: OrderedcloNIDine 0.1 mg oral tablet 0.1 mg, 1, tablet, By Mouth, Daily, # 60 tablet, Refills 5, Route to Pharmacy Electronically, [facility], 149, cm, 10/18/21 12:13:00 EDT, Height, 68.9, kg, 12/21/20 8:52:00 EDT, Dry Weight Start Date: 11/04/21 Status: Ordereddocusate sodium 100 mg oral capsule 100 mg, 1, capsule, By Mouth, Daily, PRN, Maintenance, as needed for constipation, 12/21/20 16:05:00EDT, ; Start Date: 12/21/20 Status: Orderedezetimibe 10 mg oral tablet See Instructions, TAKE ONE TABLET BY MOUTH EVERY DAY, # 30 tablet, 5 Refills, 11/12/21 9:33:00 EDT, [facility], 149, cm, 10/18/21 12:13:00 EDT, Height, 68.9, kg, 12/21/20 8:52:00 EDT, Dry Weight Start Date: 11/12/21 Status: OrderedFLUoxetine 40 mg oral capsule 1 capsule, By Mouth, Daily, # 30 capsule, 5 Refills, [facility], 149, cm, 02/06/22 9:42:00 EDT, Height, 68.5, kg, 11/19/21 15:42:00 EDT, Dry Weight Start Date: 02/11/22 Status: Orderedfurosemide 20 mg oral tablet 20 mg, 1, tablet, By Mouth, Daily, # 30 tablet, Refills 0, Tot. Refills 0, Maintenance, 01/14/22 11:03:00 EDT, Route to Pharmacy Electronically, [facility], Partial fill upon patient request if the prescription is for a schedule II opioid feliberto... Start Date: 01/14/22 Status: Orderedhydrocortisone 2.5% topical cream 1 application, [...] hours, # 84 tablet, 0 Refills, Maintenance, 01/22/22 11:28:00 EDT, Tablet, [facility] # [facility], partial fill upon request, 02/04/22, 149, cm, 01/09/22 13:12:00 EDT, Height, 68.5, kg, 11/19/21 15:42:00 EDT, Dry Weight Start Date: 01/22/22 Stop Date: 02/19/22 Status: OrderedImodium A-D 2 mg, By Mouth, Refills 0, Maintenance, 01/09/21 15:24:00 EDT, Partial fill upon patient request if the prescription is for a schedule II opioid drug. Start Date: 01/09/21 Status: Orderedlevothyroxine 125 mcg (0.125 mg) oral tablet See Instructions, TAKE ONE TABLET BY MOUTH EVERY DAY, # 30 tablet, 5 Refills, 10/11/21 14:05:00 EDT,[facility], 149, cm, 08/15/21 [...] 12/27/20 9:18:00 EDT, Route to Pharmacy Electronically, [facility], Partial fill upon patient request if the prescription... Start Date: 12/27/20 Status: OrderedVentolin HFA 108 mcg/inh inhalation aerosol with adapter See Instructions, INHALE 2 PUFFS FOUR TIMES A DAY NEEDED FOR WHEEZING, # 18 Gm, 5 Refills, 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 irzhdvu5ihuutq repeat sdx; injections,fentanyl,morphine,oxycodone er8Dr Oh no surgery re neck,slyh8bnj Dr King,yesterday NO SURGERY, rx corsett,pool10 evaluated by two neurosurgeons,pain vegkzjhv75eayaq lf33Jehxqj 24-hour urine hxlzhary53MYPB increased alpha2 urdakecqk72igjoec iron,ferrritin,cderloplasmin; neg HEP a,B,I67nwxtgrf Oswestry Disability Index: 48% ( severe disability ) on 04/15/16; updated [place] Back Pain Scale:44 on 04/15/16; updated [place]: 7 on 04/15/1616Initial Oswestry Disability Index: 48% ( severe disability ) on 11/24/14; initial [place] Back Pain Scale: 48 on 11/24/14; initial [place]: 5 on 11/24/1516egd . Bilateral common femoral artery endarterectomy. 3. Left common femoral artery patch angioplasty with PTFE. 4. 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 CURRENT THERAPY: Tamoxifen started in 11/17/14, prior anastrozole 11/2012- 09/2014, zoledronic acid, received 02/2015 and 08/2015.55hxzgt77Ebjsvbmsvkkfrp Summary Successful drug eluting stenting of the proximal LAD coronary artery with a 3.5X15 mm plus 3.0X8 mm Xience Alpine stents as described above. The second stent was needed to cover distal edge of th efirst stent in an overlapping fashion. The stents were post-dilated using a 3.5 mm non-compliant balloon.25 now hyperthyroid,exopthalmous;Dr MurphyIwauhu44vhlionh pre diabetes increased risk qtbdgrbi32fseonp91vs stable;recheck 12 nwqmmg96aypwm lung nodules on neck CT recheck 6 pjgfbw54KVA0b ocv96IUr4 four low qqams64zpfi normal,b12 low hbbffy06 fit terst jho11cklujum D deficiency;correcting Diagnosis Diagnosis Type Effective Dates Health Status Clinical In formant Service Lower leg edema Discharge 02/06/22 Diagnosis Vital Signs Most recent to oldest [Reference Range]: 1 2 Height 149.0 cm 149.0 cm (02/06/22 9:42 AM) (02/06/22 9:27 AM) Weight 73.4 kg (02/06/22 9:27 AM) Oxygen Saturation [94-100 %] 95 % (02/06/22 9:27 AM) Pulse Rate [55-90 bpm] 67 bpm (02/06/22 9:27 AM) Body Mass Index [18.5-24.99] 33.06 *>HHI* (02/06/22 9:27 AM) Blood Pressure [90-138/55-84 mm Hg] 98/70 mm Hg 87/5 7 mm Hg (02/06/22 9:42 AM) *L* (02/06/22 9:27 AM) Respiratory Rate [16-30 br/min] 18 br/min (02/06/22 9:27 AM) Temperature [96.8-100.4 DegF] 98.4 DegF (02/06/22 9:27 AM) Mode of Delivery (Oxygen) Room air (02/06/22 9:27 AM) Blood pressure sites Arm, left Arm, left (02/06/22 9:42 AM) (02/06/22 9:27 AM) Temperature Route Oral (02/06/22 9:27 AM) Weight Obtained Via Standing scale (02/06/22 9:27 AM) Social History Social History Type Response 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
--- OUTSIDE RECORDS SUMMARY | 2022-06-11 12:46 | XMS_ITS | Continuity of Care Document ---
:1945 Author Organization [facility] Address [address] [place] [address]- Care Team Providers Name Role Phone Christina BAZAN, Chino Dao Primary Care Physician [facility]counter [facility] Date(s): 08/17/21 - 09/16/21 [facility] [address] [place] [address]- Allergies, Adverse Reactions, Alerts Substance Reaction Severity Status spironolactone1 Active lisinopril2 Active atorvastatin3 Active thiazide diuretics4 Active amLODIPine5 Active 5vnpfd1clkrwbz ndkxvljf9onig0pkontofyhaze7lqqbr Immunizations Given and Recorded Vaccine Date Status [...] Not Given P atient Refuses 1Result Comment: [facility]: [id number] Comment: [facility]: [phone] Comment: [05/27/2017] [facility] [phone]/Late Reason: Wan to Standard Admin Qvmsp2Hjzgg Note: #26Admin Note: historical data Medications aspirin [...] 04/13/21 5:37:00 EDT, Route to Pharmacy Electronically, [facility] # 50, Partial fill upon patient request if the prescription is for a schedule II op... Start Date: 04/13/21 Status: Orderedclopidogrel 75 mg oral tablet 1, tablet, By Mouth, Daily, # 90 tablet, Refills 0, Route to Pharmacy Electronically, [facility], 149, cm, 07/18/21 14:05:00 [...] # 30 tablet, 5 Refills, 08/15/21 13:24:00 EST,[facility] # [facility], 149, cm, 08/15/21 11:10:00 EST, Height, 68.9, kg, 12/21/20 8:52:00 EDT, Dry Weight Start Date: 08/15/21 Status: OrderedFLUoxetine 40 mg oral capsule See Instructions, TAKE 1 CAPSULE BY MOUTH DAILY., # 30 capsule, 5 Refills, 08/15/21 13:23:00 EST, [facility] # 50, 149, cm, 08/15/21 [...] hours, # 84 tablet, 0 Refills, Maintenance, 09/11/21 10:42:00 EST, Tablet, [facility] # 50, partial fill upon request, 09/18/21, 149, cm, 08/15/21 11:10:00 EST, Height, 68.9, kg, 12/21/20 8:52:00 EDT, Dry Weight Start Date: 09/11/21 Stop Date: 10/09/21 Status: OrderedImodium A-D 2 mg, By Mouth, Refills 0, Maintenance, 01/09/21 15:24:00 EDT, Partial fill upon patient request if the prescription is for a schedule II opioid drug. Start Date: 01/09/21 Status: Orderedlevothyroxine 125 mcg (0.125 mg) oral tablet See Instructions, TAKE ONE TABLET BY MOUTH EVERY DAY, # 30 tablet, 5 Refills, 08/15/21 13:24:00 EST,[facility] # [facility], 149, cm, 08/15/21 [...] 6 Refills, Maintenance, 08/15/21 13:23:00 EST, Powder, [facility] # [facility], Partial fill upon patient request if the prescription is for a schedule II opioid drug., 1 puffs Inhalation D... Start Date: 08/15/21 Status: OrderedTylenol 325 mg oral tablet 650 mg, 2, tablet, By Mouth, Every 4 hours, PRN, # 24 tablet, Refills 0, Tot. Refills 0, Maintenance, Pain , Mild, 12/27/20 9:18:00 EDT, Route to Pharmacy Electronically, [facility], Partial fill upon patient request if the prescription... 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 lrxsdpx3avbcxs repeat sdx; injections,fentanyl,morphine,oxycodone er8Dr Oh no surgery re neck,hyzy9wrs Dr King,yesterday NO SURGERY, rx corsett,pool10 evaluated by two neurosurgeons,pain xsvrlnlq89zurzw yl87Naygdk 24-hour urine mglearig88RGAH increased alpha2 ltwzqygnt02fgurkv iron,ferrritin,cderloplasmin; neg HEP a,B,Q82nvzkcaw Oswestry Disability Index: 48% ( severe disability ) on 04/15/16; updated [place] Back Pain Scale:44 on 04/15/16; updated [place]: 7 on 04/15/1616Initial Oswestry Disability Index: 48% ( severe disability ) on 11/24/14; initial [place] Back Pain Scale: 48 on 11/24/14; initial [place]: 5 on 11/24/1516egd . Bilateral common femoral artery endarterectomy. 3. Left common femoral artery patch angioplasty with PTFE. 4. 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 CURRENT THERAPY: Tamoxifen started in 11/17/14, prior anastrozole 11/2012- 09/2014, zoledronic acid, received 02/2015 and 08/2015.03woqrn81Woadmokaftunpa Summary Successful drug eluting stenting of the proximal LAD coronary artery with a 3.5X15 mm plus 3.0X8 mm Xience Alpine stents as described above. The second stent was needed to cover distal edge of th efirst stent in an overlapping fashion. 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
--- OUTSIDE RECORDS SUMMARY | 2022-06-11 12:46 | XMS_ITS | Continuity of Care Document ---
:1945 Author Organization [facility] Address [address] [place] [address]- Care Team Providers Name Role Phone Chino Vasquez MD Primary Care Physician Encounter [facility] Date(s): 10/12/19 - 10/19/19 [facility] [address] [place] [address]- [facility] Attending Physician: Cheryl Mcginnis NP Admitting Physician: Cheryl Mcginnis NP Referring Physician: Chino Vasquez MD Allergies, Adverse Reactions, Alerts Substance Reaction Severity Status atorvastatin1 Active amLODIPine2 Active 2pvrz9ksict Immunizations Given and Recorded Vaccine Date Status [...] 1Result Comment: [05/27/2017] [facility] [phone]/Late Reason: Wan to Standard Admin Qkxbh7Gzsyt Note: #24Admin Note: historical data Medications Aspirin = 81 mg, By Mouth, Daily, 0 Refills, Maintenance Start Date: 12/26/11 Status: OrderedBevespi Aerosphere 9 mcg-4.8 mcg/inh inhalation aerosol 2 puffs, Inhalation, 2 times a day, 4 by 28 doses lot [id number] 05-14, # 1 Doses, 11 Refills, Maintenance, 02/12/19 10:52:38 EDT, 2 puffs Inhalation 2 times a day,Instr:4 by 28 doses; lot [id number] 05-14 Start Date: 02/12/19 Status: Orderedcalcium (as [...] 10/15/19 9:40:00 EDT, Route to Pharmacy Electronically, [facility] # 50, 149.9, cm, 10/14/19 [...] 5 Refills, Maintenance, 10/18/19 14:04:00 EDT, Tablet, [facility] # 50, 149.9, cm, 10/14/19 [...] Replace Required Details, Route to Pharmacy Electronically, [facility] # 50, 149.9, cm, 10/14/19 14:23:00 EDT, Height, 68.9, kg, 1... 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 cewbutg7cjwxur repeat sdx; injections,fentanyl,morphine,oxycodone er8Dr Oh no surgery re neck,buqq3dxz Dr King,yesterday NO SURGERY, rx corsett,pool10 evaluated by two neurosurgeons,pain ezpbvoji29ozsco zx73Ceowoq 24-hour urine jpkagdft89ILUV increased alpha2 nsinwiekt04hwdhls iron,ferrritin,cderloplasmin; neg HEP a,B,M56rwkzvuk Oswestry Disability Index: 48% ( severe disability ) on 04/15/16; updated [place] Back Pain Scale:44 on 04/15/16; updated [place]: 7 on 04/15/1616Initial Oswestry Disability Index: 48% ( severe disability ) on 11/24/14; initial [place] Back Pain Scale: 48 on 11/24/14; initial [place]: 5 on 11/24/1516egd . Bilateral common femoral artery endarterectomy. 3. Left common femoral artery patch angioplasty with PTFE. 4. 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 CURRENT THERAPY: Tamoxifen started in 11/17/14, prior anastrozole 11/2012- 09/2014, zoledronic acid, received 02/2015 and 08/2015.83qicjt26Wdepswptnfdiqh Summary Successful drug eluting stenting of the proximal LAD coronary artery with a 3.5X15 mm plus 3.0X8 mm Xience Alpine stents as described above. The second stent was needed to cover distal edge of th efirst stent in an overlapping fashion. The stents were post-dilated using a 3.5 mm non-compliant balloon.25 now hyperthyroid,exopthalmous;Dr MurphyElvvvo49zlvkhse pre diabetes increased risk zmenmfyh38udoxhm19fb stable;recheck 12 qntojv04pvnae lung nodules on neck CT recheck 6 riwysp44YZY3v yhx26NNk0 four low gryen54yaky normal,b12 low fxasad[address] cna72amsbxsd D deficiency;correcting Vital Signs Most recent to oldest [Reference Range]: 1 Height 149.9 cm (10/12/19 11:19 AM) Weight 68.54 kg (10/12/19 11:19 AM) Pulse Rate [55-90 bpm] 60 bpm (10/12/19 11:19 AM) Body Mass Index [18.5-24.99] 30.5 *>HHI* (10/12/19 11:19 AM) Blood Pressure [90-138/55-84 mm Hg] 110/72 mm Hg (10/12/19 11:19 AM) Blood pressure sites Arm, left (10/12/19 11:19 AM) Weight Obtained Via Patient/family stated (10/12/19 11:19 AM) Social History Social History Type Response 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
--- OUTSIDE RECORDS SUMMARY | 2022-06-11 12:46 | XMS_ITS | Continuity of Care Document ---
:1945 Author Organization [facility] Address [address] [place] [address]- Care Team Providers Name Role Phone Chino Vasquez MD Primary Care Physician [facility]counter [facility] Date(s): 11/09/20 - 11/16/20 [facility] [address] [place] [address]- Attending Physician: Chino Vasquez MD Allergies, Adverse Reactions, Alerts Substance Reaction Severity Status spironolactone1 Active lisinopril2 Active atorvastatin3 Active amLODIPine4 Active 0lmota5rpvfokz oayyzaiq8pkun3dmynq Immunizations Given and Recorded Vaccine Date Status [...] Given P atient Refuses 1Result Comment: [05/27/2017] [facility] [id number]/Late Reason: Wan to Standard Admin Vrpjw6Iwiwf Note: #24Admin Note: historical data Medications Aspirin = 81 mg, By Mouth, Daily, 0 Refills, Maintenance Start Date: 12/26/11 Status: OrderedBevespi Aerosphere 9 mcg-4.8 mcg/inh inhalation aerosol 2 puffs, Inhalation, 2 times a day, 4 by 28 doses, # 5.9 Gm, 11 Refills, Maintenance, 04/25/20 11:19:00 EDT, [facility], 2 puffs [...] 10/26/20 14:56:00 EDT, Route to Pharmacy Electronically, [facility] # 50, Partial fill upon patient request if the prescription is for a schedule II opioid feliberto... Start Date: 10/26/20 Status: OrderedFlovent HFA 110 mcg/inh inhalation aerosol 2 puffs, Inhalation, 2 times a day, # 1 each, 5 Refills, Maintenance, 08/22/20 18:56:00 EST, Aerosol, [facility] # 50, 149.9, cm, 06/07/20 11:48:00 EST, Height, 68.9, kg, 07/12/19 14:56:00 EST, DryWeight Start Date: 08/22/20 Status: OrderedFLUoxetine 40 mg oral capsule 1 capsule = 40 mg, By Mouth, Daily, # 30 capsule, 5 Refills, Maintenance, 08/13/20 10:39:00 EST, Capsule, [facility] # 50, 149.9, [...] tablet, 0 Refills, Maintenance, 10/31/20 8:03:00 EDT,Tablet, [facility] # 50, partial fill upon request, 11/07/20, 149.9, cm, 10/26/20 14:49:00 EDT, Height, 68.9, kg, 07/12/19 14:56:00 EST, Dry Weight Start Date: 10/31/20 Stop Date: 11/28/20 Status: Orderedlevothyroxine 125 mcg (0.125 mg) oral tablet 1 tablet = 125 mcg, By Mouth, Daily, # 30 tablet, 5 Refills, Maintenance, 10/10/20 7:25:00 EDT, Tablet, [facility] # 50, 149.9, cm, 08/28/20 14:48:00 EST, Height, 68.9, kg, 07/12/19 14:56:00 EST, Dry Weight Start Date: 10/10/20 Status: Orderedmetoprolol 25 mg oral tablet 25 mg, 1, tablet, By Mouth, 2 times a day, # 60 tablet, Refills 2, Tot. Refills 2, Maintenance, 11/13/20 16:41:00 EDT, Route to Pharmacy Electronically, [facility] # 50, 149.9, cm, 11/13/20 11:13:00 EDT, Height, 68.9, kg, 07/12/19 14:56:00 EST, DrClementina.. Start Date: 11/13/20 Status: OrderedPriLOSEC OTC 20 mg oral delayed release tablet 1 tablet = 20 mg, By Mouth, Daily, # 90 tablet, 0 Refills, Maintenance, 11/06/20 16:02:00 EDT, CR Tablet, [facility] # 50, 149.9, cm, 10/26/20 14:49:00 EDT, Height, 68.9, kg, 07/12/19 14:56:00 EST,Dry Weight Start Date: 11/06/20 Status: Orderedrosuvastatin 10 mg oral capsule 1 capsule = 10 mg, By Mouth, Daily, # 30 capsule, 11 Refills, Maintenance, 08/29/20 15:01:00 EST, Capsule, [facility] # 50, Partial fill upon patient request if the prescription is for a schedule II opioid drug., 149.9, cm, 08/28/20 14:48:00 EST,... 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 uzbmbpn2yhggwf repeat sdx; injections,fentanyl,morphine,oxycodone er8Dr Oh no surgery re neck,xntn0gvm Dr King,yesterday NO SURGERY, rx corsett,pool10 evaluated by two neurosurgeons,pain pzwzpprk63nqhhy ws88Vfklau 24-hour urine jcfdjeok81TTJE increased alpha2 rrzrdxmrh95jokver iron,ferrritin,cderloplasmin; neg HEP a,B,Q41fvthtsc Oswestry Disability Index: 48% ( severe disability ) on 04/15/16; updated [place] Back Pain Scale:44 on 04/15/16; updated [place]: 7 on 6Initial Oswestry Disability Index: 48% ( severe disability ) on 11/24/14; initial [place] Back Pain Scale: 48 on 11/24/14; initial [place]: 5 on 11/24/1516egd . Bilateral common femoral artery endarterectomy. 3. Left common femoral artery patch angioplasty with PTFE. 4. 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 CURRENT THERAPY: Tamoxifen started in 11/17/14, prior anastrozole 11/2012- 09/2014, zoledronic acid, received 02/2015 and 08/2015.43znexg47Nratnympwcebss Summary Successful drug eluting stenting of the proximal LAD coronary artery with a 3.5X15 mm plus 3.0X8 mm Xience Alpine stents as described above. The second stent was needed to cover distal edge of th efirst stent in an overlapping fashion. 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
--- OUTSIDE RECORDS SUMMARY | 2022-06-11 12:46 | XMS_ITS | Continuity of Care Document ---
:1945 Author Organization [facility] Address [address] [place] [address]- Care Team Providers Name Role Phone Christina BAZAN, Chino Dao Primary Care Physician [facility] Date[facility]s): 10/16/21 - 11/15/21 [facility] [address] [place] [address]- Allergies, Adverse Reactions, Alerts Substance Reaction Severity Status spironolactone1 Active lisinopril2 Active atorvastatin3 Active thiazide diuretics4 Active amLODIPine5 Active 4obavk0usrwmxp ihuunaxv7wvlo4osurprhildga8lxcpp Immunizations Given and Recorded Vaccine Date Status [...] Not Given P atient Refuses 1Result Comment: [facility]: [id number] Comment: [facility]: [id number] Comment: [facility]: [phone] Comment: [05/27/2017] [facility] [id number] Early/Late Reason: Wan to Standard Admin Gnnrf1Qldwf Note: #27Admin Note: historical data Medications aspirin [...] tablet, Refills 0, Route to Pharmacy Electronically, [facility] # 50, 149, cm, 10/16/21 14:48:00 EDT, Height, 68.9, kg, 12/21/20 8:52:00 EDT, Dry Weight Start Date: 10/17/21 Status: OrderedcloNIDine 0.1 mg oral tablet See Instructions, TAKE ONE TABLET BY MOUTH TWICE A DAY, # 60 tablet, Refills 5, Instructions ReplaceRequired Details, Route to Pharmacy Electronically, [facility] # [facility], 149, cm, [...] 30 tablet, 5 Refills, 11/12/21 9:33:00 EDT, [facility] # 50, 149, cm, 10/18/21 12:13:00 EDT, Height, 68.9, kg, 12/21/20 8:52:00 EDT, Dry Weight Start Date: 11/12/21 Status: OrderedFLUoxetine 40 mg oral capsule See Instructions, TAKE 1 CAPSULE BY MOUTH DAILY., # 30 capsule, 5 Refills, 08/15/21 13:23:00 EST, [facility] # 50, 149, cm, 08/15/21 11:10:00 EST, Height, 68.9, kg, 12/21/20 8:52:00 EDT, Dry Weight Start Date: 08/15/21 Status: Orderedhydrocortisone 2.5% topical cream 1 application, Topically, 3 times a day, # 30 Gm, 1 Refills, Maintenance, 01/09/21 12:15:00 EDT, Cream, [facility] # 50, 1 application Topically 3 times a day, 149.9, cm, 01/09/21 12:01:00 EDT, Height, 68.9, kg, 12/21/20 8:52:00 EDT, Dry Weight Start Date: 01/09/21 Status: OrderedHYDROmorphone 4 mg oral tablet 1 tablet = 4 mg, By Mouth, Every 8 hours, # 84 tablet, 0 Refills, Maintenance, 11/06/21 9:15:00 EDT,Tablet, [facility] # 50, partial [...] # 30 tablet, 5 Refills, 10/11/21 14:05:00 EDT,[facility], 149, cm, [...] 11 Refills, Maintenance, 08/15/21 13:23:00 EST, Capsule, [facility] # [...] 12/27/20 9:18:00 EDT, Route to Pharmacy Electronically, [facility], Partial fill upon patient request if [...] 10/18/21 Active Vitamin D Deficiency(Confirmed) Active 1per gastroenterology;hfhlimy9Rdujqcub to gastroenterology no-show for bjujixekpsh5vbn0 40%4chronic jzyfjvotus6XRAM:2 low vzeyh9TKYL test done,MASS CORRECTIVE THERAPY AIDE usfssxi5sinubb repeat sdx; injections,fentanyl,morphine,oxycodone er8Dr Oh no surgery re neck,vfsn5ddh Dr King,yesterday NO SURGERY, rx corsett,pool10 evaluated by two neurosurgeons,pain xuzjtsut04tqxtc if30Ubwayk 24-hour urine grjbonnp16TBHR increased alpha2 oltupotny82ilqkzc iron,ferrritin,cderloplasmin; neg HEP a,B,S82yjhkolx Oswestry Disability Index: 48% ( severe disability ) on 04/15/16; updated [place] Back Pain Scale:44 on 04/15/16; updated [place]: 7 on 04/15/1616Initial [place] Disability Index: 48% ( severe disability ) on 11/24/14; initial [place] Back Pain Scale: 48 on 11/24/14; initial [place]: 5 on 11/24/1516egd . Bilateral common femoral artery endarterectomy. 3. Left common femoral artery patch angioplasty with PTFE. 4. 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 CURRENT THERAPY: Tamoxifen started in 11/17/14, prior anastrozole 11/2012- 09/2014, zoledronic acid, received 02/2015 and 08/2015.29dlkmw19Ucgtqcichnivac Summary Successful drug eluting stenting of the proximal LAD coronary artery with a 3.5X15 mm plus 3.0X8 mm Xience Alpine stents as described above. The second stent was needed to cover distal edge of th efirst stent in an overlapping fashion. 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
--- OUTSIDE RECORDS SUMMARY | 2022-06-11 12:46 | XMS_ITS | Continuity of Care Document ---
:1945 Author Organization [facility] Adult Address [address] [place] [address]- Care Team Providers Name Role Phone Cihno Vasquez MD Primary Care Phys[place] [facility] [place] 04[place]/21 [facility] [address] [place] [address]- Attending Physician: Solange Starr NP Referring Physician: Chino Vasquez MD Allergies, Adverse Reactions, Alerts Substance Reaction Severity Status spironolactone1 Active lisinopril2 Active atorvastatin3 Active amLODIPine4 Active 5qoeyf0ktfimpg drwiezoc9frjy7zxrge Immunizations Given and Recorded Vaccine Date Status [...] Given P atient Refuses 1Result Comment: [05/27/2017] [facility] [id number]/Late Reason: Wan to Standard Admin [id number] Note: #24Admin Note: historical data Medications aspirin [...] Details, Route to Pharmacy Electronically, [facility] # [facility], Partial fill upon patient request if the... Start Date: 04/03/21 Status: Orderedchlorthalidone 25 mg oral tablet See Instructions, TAKE ONE TABLET BY MOUTH EVERY DAY, # 30 tablet, Refills 5, Tot. Refills 5, Maintenance, 02/20/21 1:48:00 EDT, Instructions Replace Required Details, Route to Pharmacy Electronically,[facility] # [facility], 149, cm, 02/09/21 [...] Soft Stop, 03/27/21 10:17:00 EDT, [facility] # 50, Partial fill upon patient request if the prescription is for a schedule II opioid drug., 149, cm, 03/27/21 10:16:00 EDT, Height, 68.9, k... Start Date: 03/27/21 Status: OrderedFlovent HFA 110 mcg/inh inhalation aerosol See Instructions, INHALE 2 PUFFS TWO TIMES A DAY, # 12 Gm, 5 Refills, Maintenance, [facility] # 50, 149, cm, 02/09/21 10:03:00 EDT, Height, 68.9, kg, 12/21/20 8:52:00 EDT, Dry Weight Start Date: 02/09/21 Status: OrderedFLUoxetine 40 mg oral capsule See Instructions, TAKE 1 CAPSULE BY MOUTH DAILY., # 30 capsule, 5 Refills, Maintenance, [facility] # 50, 149, cm, 02/09/21 [...] Refills, Maintenance, 03/27/21 7:54:00 EDT,Tablet, [facility] # [...] Maintenance, 10/10/20 7:25:00 EDT, Tablet, [facility] # 50, 149.9, cm, 08/28/20 14:48:00 EST, Height, 68.9, kg, 07/12/19 14:56:00 EST, Dry Weight Start Date: 10/10/20 Status: OrderedoxyCODONE 5 mg oral tablet 5 mg, 1, tablet, By Mouth, Every 6 hours, PRN, # 5 tablet, Refills 0, Tot. Refills 0, Maintenance, Pain , Severe, 12/27/20 9:18:00 EDT, Route to Pharmacy Electronically, [facility], [facility] upon [...] [facility] 149, cm, 01/18/21 11:04:00 EDT, Height, 68.9, kg, 12/21/20 8:52:00 EDT, Dry Weight Start Date: 01/22/21 Status: Orderedrosuvastatin 10 mg oral capsule 1 capsule = 10 mg, By Mouth, Daily, # 30 capsule, 11 Refills, Maintenance, 08/29/20 15:01:00 EST, Capsule, [facility] # 50, Partial fill upon patient request if the prescription is for a schedule II opioid drug., 149.9, cm, 08/28/20 14:48:00 EST,... Start Date: 08/29/20 Status: OrderedTylenol 325 mg oral tablet 650 mg, 2, tablet, By Mouth, Every 4 hours, PRN, # 24 tablet, Refills 0, Tot. Refills 0, Maintenance, Pain , Mild, 12/27/20 9:18:00 EDT, Route to Pharmacy Electronically, [facility], Partial fill upon patient request if the prescription... 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 yjfgmpn1ekqpzf repeat sdx; injections,fentanyl,morphine,oxycodone er8Dr Oh no surgery re neck,fnov4cbd Dr King,yesterday NO SURGERY, rx corsett,pool10 evaluated by two neurosurgeons,pain idtwenxn49uarxf vp26Gxtamy 24-hour urine noqadtap97SOGE increased alpha2 ydlkiuxej36zxsmzp iron,ferrritin,cderloplasmin; neg HEP a,B,O43heuzkii Oswestry Disability Index: 48% ( severe disability ) on 04/15/16; updated [place] Back Pain Scale:44 on 04/15/16; updated [place]: 7 on 04/15/1616Initial [place]estry Disability Index: 48% ( severe disability ) on 11/24/14; initial [place] Back Pain Scale: 48 on 11/24/14; initial [place]: 5 on 11/24/1516egd . Bilateral common femoral artery endarterectomy. 3. Left common femoral artery patch angioplasty with PTFE. 4. 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 CURRENT THERAPY: Tamoxifen started in 11/17/14, prior anastrozole 11/2012- 09/2014, zoledronic acid, received 02/2015 and 08/2015.43hczwn28Qnxcikmmmdvacc Summary Successful drug eluting stenting of the proximal LAD coronary artery with a 3.5X15 mm plus 3.0X8 mm Xience Alpine stents as described above. The second stent was needed to cover distal edge of th efirst stent in an overlapping fashion. The stents were post-dilated using a 3.5 mm non-compliant balloon.25 now hyperthyroid,exopthalmous;Dr MurphyScvomx93ocbwxoh pre diabetes increased risk pdirqfly37mobayp50if stable;recheck 12 gqmixi49mvmyy lung nodules on neck CT recheck 6 ypaxtz95KKM6f olt18CFv5 four low itnvy48hrrq normal,b12 low pruevr09 fit terst igj43fhkybus D deficiency;correcting Vital Signs Most recent to oldest 1 2 3 [Reference Range]: Height 149 cm (03/29/21 11:00 AM) Blood Pressure [90-138/55-84 mm 166/66 mm Hg 158/68 mm Hg 174/68 mm Hg Hg] *H* *H* *H* (03/29/21 10:46 AM) (03/29/21 10:46 AM) (03/29/21 10:4 5 AM) Blood pressure sites Arm, right Arm, right Arm, right (03/29/21 10:46 AM) (03/29/21 10:46 AM) (03/29/21 10:4 5 AM) Social History Social History Type Response 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
--- OUTSIDE RECORDS SUMMARY | 2022-06-11 12:46 | XMS_ITS | Continuity of Care Document ---
:1945 Author Organization [facility] Adult Address [address] [place] [address]- Care Team Providers Name Role Phone Christina BAZAN, Chino Dao Primary Care Physician Encounter [facility] Date(s): 07/31/21 - 08/30/21 [facility] [address] [place] [address]- Allergies, Adverse Reactions, Alerts Substance Reaction Severity Status spironolactone1 Active lisinopril2 Active atorvastatin3 Active thiazide diuretics4 Active amLODIPine5 Active 5ciavr1prgghoy ariasyhm0eiko4unfwqukfhkrx9qpzoh Immunizations Given and Recorded Vaccine Date Status [...] Not Given P atient Refuses 1Result Comment: [facility]: [id number] Comment: [facility]: [id number] Comment: [05/27/2017] [facility] [id number]/Late Reason: Wan to Standard Admin [id number] Note: #26Admin Note: historical data Medications aspirin [...] 0, Route to Pharmacy Electronically, [facility], 149, cm, 07/18/21 14:05:00 [...] Soft Stop, 03/27/21 10:17:00 EDT, [facility] # 50, Partial fill upon patient request if the prescription is for a schedule II opioid drug., 149, cm, 03/27/21 10:16:00 EDT, Height, 68.9, k... Start Date: 03/27/21 Status: Orderedezetimibe 10 mg oral tablet See Instructions, TAKE ONE TABLET BY MOUTH EVERY DAY, # 30 tablet, 5 Refills, 08/15/21 13:24:00 EST,[facility] # [facility], 149, cm, 08/15/21 11:10:00 EST, Height, 68.9, kg, 12/21/20 8:52:00 EDT, Dry Weight Start Date: 08/15/21 Status: OrderedFLUoxetine 40 mg oral capsule See Instructions, TAKE 1 CAPSULE BY MOUTH DAILY., # 30 capsule, 5 Refills, 08/15/21 13:23:00 EST, [facility] # 50, 149, cm, 08/15/21 [...] Maintenance, 08/10/21 16:13:00 EST, Tablet, [facility] [...] tablet, 5 Refills, 08/15/21 13:24:00 EST,[facility] # [facility], 149, cm, 08/15/21 [...] 9:18:00 EDT, Route to Pharmacy Electronically, 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 lhecgxe7neynpl repeat sdx; injections,fentanyl,morphine,oxycodone er8Dr Oh no surgery re neck,ztqw0sxx Dr King,yesterday NO SURGERY, rx corsett,pool10 evaluated by two neurosurgeons,pain vywvmifw33qudpq iz44Vcsqvl 24-hour urine bholbuaa50NHVP increased alpha2 hafepzvye39iixtzz iron,ferrritin,cderloplasmin; neg HEP a,B,G76cgcvtce Oswestry Disability Index: 48% ( severe disability ) on 04/15/16; updated [place] Back Pain Scale:44 on 04/15/16; updated [place]: 7 on 04/15/1616Initial Oswestry Disability Index: 48% ( severe disability ) on 11/24/14; initial [place] Back Pain Scale: 48 on 11/24/14; initial [place]: 5 on 11/24/1516egd . Bilateral common femoral artery endarterectomy. 3. Left common femoral artery patch angioplasty with PTFE. 4. 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 CURRENT THERAPY: Tamoxifen started in 11/17/14, prior anastrozole 11/2012- 09/2014, zoledronic acid, received 02/2015 and 08/2015.06faxwp22Iyjxyuatnjzukc Summary Successful drug eluting stenting of the proximal LAD coronary artery with a 3.5X15 mm plus 3.0X8 mm Xience Alpine stents as described above. The second stent was needed to cover distal edge of th efirst stent in an overlapping fashion. 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
[2022-06-11 12:47] LABS: Basophils Percent Auto 0.1 % (0-2); Eosinophils Absolute Auto 0.1 X10*3/uL (0.0-0.4); Eosinophils Percent Auto 0.5 % (0-4); Hematocrit 36.9 % (37.0-47.0); Hemoglobin 12.3 g/dl (12.0-16.0); Imm Gran Pct Auto 0.7 % (0.0-0.4); Lymphocytes Absolute Auto 1.5 X10*3/uL (1.2-4.9); Lymphocytes Percent Auto 10.7 % (20-40); Mean Corpuscular HGB Conc 33.3 g/dl (31.0-35.0); Mean Corpuscular Hemoglobin 29.4 pg (27.0-33.0); Mean Corpuscular Volume 88.3 fL (80.0-98.0); Mean Platelet Volume 8.6 fL (9.4-12.3); Monocytes Absolute Auto 1.3 X10*3/uL (0.1-1.2); Monocytes Percent Auto 9.3 % (2-11); Neutrophils Percent Auto 78.7 % (45-73); Platelet Count 315 X10*3/uL (160-400); Red Blood Count 4.18 X10*6/uL (4.20-5.50); Red Cell Distribution Width 13.6 % (11.0-16.0); White Blood Count 13.9 X10*3/uL (4.8-10.8)
--- OUTSIDE RECORDS SUMMARY | 2022-06-11 12:47 | XMS_ITS | Continuity of Care Document ---
:1945 Author Organization [facility] Adult Address [address] [place] [address]- Care Team Providers Name Role Phone Christina BAZAN, Chino Dao Primary Care Physician Encounter [facility] Date(s): 01/07/22 - 02/06/22 [facility] [address] [place] [address]- Allergies, Adverse Reactions, Alerts Substance Reaction Severity Status spironolactone1 Active lisinopril2 Active atorvastatin3 Active thiazide diuretics4 Active amLODIPine5 Active 9ixozg5kooeneo ijfczxbq7sxcy4ymwnhlczlmta3uxuvf Immunizations Given and Recorded Vaccine Date Status [...] Not Given P atient Refuses 1Result Comment: [facility]: [id number] Comment: [facility]: [id number] Comment: [facility]: [id number] Comment: [05/27/2017] [facility] [phone] Early/Late Reason: Wan to Standard Admin [id number] Note: #27Admin Note: historical data Medications aspirin [...] EDT, Route to Pharmacy Electronically, [facility] # [facility], 149, cm, 01/09/22 13:12:00 EDT, Height, 68.5, kg, 11/19/21 15:42:00 EDT, Dry Weight Start Date: 01/14/22 Status: OrderedcloNIDine 0.1 mg oral tablet 0.1 mg, 1, tablet, By Mouth, Daily, # 60 tablet, Refills 5, Route to Pharmacy Electronically, [facility] # 50, 149, cm, 10/18/21 [...] 5 Refills, 11/12/21 9:33:00 EDT, [facility] # 50, 149, cm, 10/18/21 12:13:00 EDT, Height, 68.9, kg, 12/21/20 8:52:00 EDT, Dry Weight Start Date: 11/12/21 Status: OrderedFLUoxetine 40 mg oral capsule See Instructions, TAKE 1 CAPSULE BY MOUTH DAILY., # 30 capsule, 5 Refills, 08/15/21 13:23:00 EST, [facility] # 50, 149, cm, 08/15/21 11:10:00 EST, Height, 68.9, kg, 12/21/20 8:52:00 EDT, Dry Weight Start Date: 08/15/21 Status: Orderedfurosemide 20 mg oral tablet 20 mg, 1, tablet, By Mouth, Daily, # 30 tablet, Refills 0, Tot. Refills 0, Maintenance, 01/14/22 11:03:00 EDT, Route to Pharmacy Electronically, [facility] # 50, Partial fill upon patient request if the prescription is for a schedule II opioid feliberto... Start Date: 01/14/22 Status: Orderedhydrocortisone 2.5% topical cream 1 application, Topically, 3 times a day, # 30 Gm, 1 Refills, Maintenance, 01/09/21 12:15:00 EDT, Cream, [facility], 1 application Topically 3 times a day, 149.9, cm, 01/09/21 12:01:00 EDT, Height, 68.9, kg, 12/21/20 8:52:00 EDT, Dry Weight Start Date: 01/09/21 Status: OrderedHYDROmorphone 4 mg oral tablet 1 tablet = 4 mg, By Mouth, Every 8 hours, # 84 tablet, 0 Refills, Maintenance, 01/22/22 11:28:00 EDT, Tablet, [facility] # 50, partial fill upon [...] tablet, 5 Refills, 10/11/21 14:05:00 EDT,[facility] # [facility], 149, cm, 08/15/21 [...] Maintenance, 08/15/21 13:23:00 EST, Capsule, [facility] # [facility], Partial fill upon patient request if the prescription is for a schedule II opioid drug., 149, cm, 08/15/21 11:10:00 EST, He... Start Date: 08/15/21 Status: OrderedTylenol 325 mg oral tablet 650 mg, 2, tablet, By Mouth, Every 4 hours, PRN, # 24 tablet, Refills 0, Tot. Refills 0, Maintenance, Pain , Mild, 12/27/20 9:18:00 EDT, Route to Pharmacy Electronically, [facility], Partial fill upon patient request if the prescription... 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 yfuvpiq8areokt repeat sdx; injections,fentanyl,morphine,oxycodone er8Dr Oh no surgery re neck,qlev8qon Dr King,yesterday NO SURGERY, rx corsett,pool10 evaluated by two neurosurgeons,pain rpscprhw68yagqi gb71Qlwaxs 24-hour urine bmzuxqap42XXWW increased alpha2 qqdhditby66oumsgs iron,ferrritin,cderloplasmin; neg HEP a,B,T80rzvkxvw Oswestry Disability Index: 48% ( severe disability ) on 04/15/16; updated [place] Back Pain Scale:44 on 04/15/16; updated [place]: 7 on 04/15/1616Initial Oswestry Disability Index: 48% ( severe disability ) on 11/24/14; initial [place] Back Pain Scale: 48 on 11/24/14; initial [place]: 5 on 11/24/1516egd . Bilateral common femoral artery endarterectomy. 3. Left common femoral artery patch angioplasty with PTFE. 4. 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 CURRENT THERAPY: Tamoxifen started in 11/17/14, prior anastrozole 11/2012- 09/2014, zoledronic acid, received 02/2015 and 08/2015.43muqgr08Nqmpdvbuqdlosj Summary Successful drug eluting stenting of the proximal LAD coronary artery with a 3.5X15 mm plus 3.0X8 mm Xience Alpine stents as described above. The second stent was needed to cover distal edge of th efirst stent in an overlapping fashion. 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
--- OUTSIDE RECORDS SUMMARY | 2022-06-11 12:47 | XMS_ITS | Continuity of Care Document ---
:1945 Author Organization [facility] Adult Address [address] [place] [address]- Care Team Providers Name Role Phone Chino Vasquez MD Primary Care Physician Encounter [facility] [place] Date(s): 10/26/20 - 11/02/20 [facility] [address] [place] [address]- Encounter Diagnosis Benign Essential Hypertension (Discharge Diagnosis) - 10/26/20 Attending Physician: Chino Vasquez MD Allergies, Adverse Reactions, Alerts Substance Reaction Severity Status spironolactone1 Active lisinopril2 Active atorvastatin3 Active amLODIPine4 Active 7chhke0bdftxdr gihhewux4qkbj6shwlr Immunizations Given and Recorded Vaccine Date Status [...] atient Refuses 1Result Comment: [05/27/2017] [facility] [id number]/Late Reason: Wan to Standard Admin Ifjyx4Yfhfi Note: #24Admin Note: historical data Medications Aspirin [...] 10/26/20 14:56:00 EDT, Route to Pharmacy Electronically, [facility] [...] tablet, 0 Refills, Maintenance, 10/31/20 8:03:00 EDT,Tablet, [facility] # [facility], partial [...] 08/13/20 10:39:00 EST, Route to Pharmacy Electronically, [facility] # [facility], 149.9, cm, 06/07/20 11:48:00 EST, Height, 68.9, kg, 07/12/19 14:56:00 EST, Dr... 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 kkdsiaq0llmani repeat sdx; injections,fentanyl,morphine,oxycodone er8Dr Oh no surgery re neck,dfvy0rfz Dr King,yesterday NO SURGERY, rx corsett,pool10 evaluated by two neurosurgeons,pain irkbazew29ezudi up68Hhlchx 24-hour urine jiyodeur80LGII increased alpha2 gpmjbadoo40vjhfle iron,ferrritin,cderloplasmin; neg HEP a,B,T82lfaxpvb Oswestry Disability Index: 48% ( severe disability ) on 04/15/16; updated [place] Back Pain Scale:44 on 04/15/16; updated [place]: 7 on 04/15/1616Initial [place]estry Disability Index: 48% ( severe disability ) on 11/24/14; initial [place] Back Pain Scale: 48 on 11/24/14; initial [place]: 5 on 11/24/1516egd . Bilateral common femoral artery endarterectomy. 3. Left common femoral artery patch angioplasty with PTFE. 4. 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 CURRENT THERAPY: Tamoxifen started in 11/17/14, prior anastrozole 11/2012- 09/2014, zoledronic acid, received 02/2015 and 08/2015.28hdblw40Bgdewmuzqwwbga Summary Successful drug eluting stenting of the proximal LAD coronary artery with a 3.5X15 mm plus 3.0X8 mm Xience Alpine stents as described above. The second stent was needed to cover distal edge of th efirst stent in an overlapping fashion. The stents were post-dilated using a 3.5 mm non-compliant balloon.25 now hyperthyroid,exopthalmous;Dr MurphyIyeijj01bjfqxsw pre diabetes increased risk tstuxxet60fbklfa57st stable;recheck 12 mdlscv02dairo lung nodules on neck CT recheck 6 utjbaj81FMM0v bmq19DOq6 four low zxyql73gswf normal,b12 low ebhdgh47 fit terst zor05vcdfjqr D deficiency;correcting Diagnosis Diagnosis Type Effective Dates Health Clinical Infor mant Status Service Benign Essential Discharge 10/26/20 Hypertension Diagnosis Vital Signs Most recent to oldest [Reference Range]: 1 2 Height 149.9 cm 149.9 cm (10/26/20 2:49 PM) (10/26/20 2:29 PM) Weight 73.2 kg (10/26/20 2:29 PM) Oxygen Saturation [94-100 %] 96 % (10/26/20 2:29 PM) Pulse Rate [55-90 bpm] 62 bpm (10/26/20 2:29 PM) Body Mass Index [18.5-24.99] 32.58 *>HHI* (10/26/20 2:29 PM) Blood Pressure [90-138/55-84 mm Hg] 160/70 mm Hg 170/ 64 mm Hg *H* *H* (10/26/20 2:49 PM) (10/26/20 2:29 PM) Respiratory Rate [16-30 br/min] 18 br/min (10/26/20 2:29 PM) Blood pressure sites Arm, right Arm, right (10/26/20 2:49 PM) (10/26/20 2:29 PM) Social History Social History Type Response 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
--- OUTSIDE RECORDS SUMMARY | 2022-06-11 12:47 | XMS_ITS | Continuity of Care Document ---
:1945 Author Organization [facility] Address [address] [place] [address]- Care Team Providers Name Role Phone Christina BAZAN, Chino Dao Primary Care Physician [place] [facility] [place](s): 06/19/21 - 06/26/21 [facility] [address] [place] [address]- Encounter Diagnosis Annual physical exam (Discharge Diagnosis) - 06/19/21 Attending Physician: Solange Starr NP Referring Physician: Chino Vasquez MD Allergies, Adverse Reactions, Alerts Substance Reaction Severity Status spironolactone1 Active lisinopril2 Active amLODIPine3 Active atorvastatin4 Active 2mdwrf3zcjbzft vwrgquty5pryxp4pyuo Immunizations Given and Recorded Vaccine Date Status [...] Given P atient Refuses 1Result Comment: [facility]: [id number] Comment: [facility]: [id number] Comment: [05/27/2017] [facility] [id number]/Late Reason: Wan to Standard Admin [id number] Note: #26Admin Note: historical data Medications aspirin 81 mg oral delayed release tablet 81 mg, 1, tablet, By Mouth, Daily, Maintenance, 12/21/20 16:02:00 EDT, ; Start Date: 12/21/20 Status: OrderedBevespi Aerosphere 9 mcg-4.8 mcg/inh inhalation aerosol 2 puffs, Inhalation, 2 times a day, # 10.7 Gm, 11 Refills, [facility], 30, INHALE 2 PUFFS [...] 14:11:00 EDT, Route to Pharmacy Electronically, [facility] # [facility], 149, cm, 03/29/21 11:00:00EDT, Height, 68.9, kg, 12/21/20 8:52:00 EDT, Dry... Start Date: 04/25/21 Status: Orderedchlorthalidone 25 mg oral tablet See Instructions, TAKE ONE TABLET BY MOUTH EVERY DAY, # 30 tablet, Refills 5, Tot. Refills 5, Maintenance, 02/20/21 1:48:00 EDT, Instructions Replace Required Details, Route to Pharmacy Electronically,[facility] # 50, 149, cm, 02/09/21 10:03:00 E... Start Date: 02/20/21 Status: OrderedcloNIDine 0.1 mg oral tablet 0.1 mg, 1, tablet, By Mouth, 2 times a day, # 60 tablet, Refills 6, Tot. Refills 6, Maintenance, 04/13/21 5:37:00 EDT, Route to Pharmacy Electronically, [facility] # 50, Partial fill upon patient request if the prescription is for a schedule II op... Start Date: 04/13/21 Status: Orderedclopidogrel 75 mg oral tablet 1, tablet, By Mouth, Daily, # 90 tablet, Refills 0, Route to Pharmacy Electronically, [facility], 149, cm, 03/29/21 11:00:00 EDT, [...] 10:17:00 EDT, [facility], Partial fill upon patient request if the prescription is for a schedule II opioid drug., 149, cm, 03/27/21 10:16:00 EDT, Height, 68.9, k... Start Date: 03/27/21 Status: Orderedezetimibe 10 mg oral tablet See Instructions, TAKE ONE TABLET BY MOUTH EVERY DAY, # 30 tablet, 5 Refills, [facility] # 50, 149, cm, 03/29/21 11:00:00 EDT, Height, 68.9, kg, 12/21/20 8:52:00 EDT, Dry Weight Start Date: 05/09/21 Status: OrderedFlovent HFA 110 mcg/inh inhalation aerosol See Instructions, INHALE 2 PUFFS TWO TIMES A DAY, # 12 Gm, 5 Refills, Maintenance, [facility] # 50, 149, cm, 02/09/21 10:03:00 EDT, Height, 68.9, kg, 12/21/20 8:52:00 EDT, Dry Weight Start Date: 02/09/21 Status: OrderedFLUoxetine 40 mg oral capsule See Instructions, TAKE 1 CAPSULE BY MOUTH DAILY., # 30 capsule, 5 Refills, Maintenance, [facility] # 50, [...] hours, # 84 tablet, 0 Refills, Maintenance, 06/19/21 10:57:00 EST, Tablet, [facility] # 50, partial fill upon request, 06/26/21, 149, cm, 06/19/21 9:35:00 EST, Height, 68.9, kg, 12/21/20 8:52:00 EDT, Dry Weight Start Date: 06/19/21 Stop Date: 07/17/21 Status: OrderedImodium A-D 2 mg, By Mouth, Refills 0, Maintenance, 01/09/21 15:24:00 EDT, Partial fill upon patient request if the prescription is for a schedule II opioid drug. Start Date: 01/09/21 Status: Orderedlevothyroxine 125 mcg (0.125 mg) oral tablet See Instructions, TAKE ONE TABLET BY MOUTH EVERY DAY, # 30 tablet, 5 Refills, [facility] # 50, 149, cm, 03/29/21 11:00:00 [...] 12/27/20 9:18:00 EDT, Route to Pharmacy Electronically, [facility], Partial fill upon patient request if the prescription... Start Date: 12/27/20 Status: OrderedVentolin HFA 108 mcg/inh inhalation aerosol with adapter See Instructions, INHALE 2 PUFFS FOUR TIMES A DAY NEEDED FOR WHEEZING, # 18 Gm, 5 Refills, Maintenance, 06/03/21 13:53:00 EST, [facility] # [facility], 149, [...] breast cancer Left, IDC, Active pT1c pN0, ER/PA positive, Her-2/angelito negative, 2012(Confirmed)22, 23 History of [...] Active use(Confirmed) Vitamin D Deficiency(Confirmed) Active 1per gastroenterology;qaxvnzk3Dkgafrkb to gastroenterology no-show for rtpnkycajul7owk4 40%4chronic phwcrkawnt1ZGFD:2 low xpthk0WKNG test done,[employer] aisficc2cryelr repeat sdx; injections,fentanyl,morphine,oxycodone er8Dr Oh no surgery re neck,qnol8sqw Dr King,yesterday NO SURGERY, rx corsett,pool10 evaluated by two neurosurgeons,pain nkulcohl54rpqvp do22Ytlbxp 24-hour urine cwumxqdq41KOOI increased alpha2 utanrnhtx98rxtgdo iron,ferrritin,cderloplasmin; neg HEP a,B,S77ddmgjjc Oswestry Disability Index: 48% ( severe disability ) on 04/15/16; updated [place] Back Pain Scale:44 on 04/15/16; updated [place]: 7 on 6Initial Oswestry Disability Index: 48% ( severe disability ) on 11/24/14; initial [place] Back Pain Scale: 48 on 11/24/14; initial [place]: 5 on 11/24/1516egd [id number]. Bilateral common femoral artery endarterectomy. 3. Left common femoral artery patch angioplasty with PTFE. 4. 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 CURRENT THERAPY: Tamoxifen started in 11/17/14, prior anastrozole 11/2012- 09/2014, zoledronic acid, received 02/2015 and 08/2015.61aqocx64Wycqjxiwjbzstt Summary Successful drug eluting stenting of the proximal LAD coronary artery with a 3.5X15 mm plus 3.0X8 mm Xience Alpine stents as described above. The second stent was needed to cover distal edge of th efirst stent in an overlapping fashion. The stents were post-dilated using a 3.5 mm non-compliant balloon.25 now hyperthyroid,exopthalmous;Dr MurphyKcxsiv94vrcapvr pre diabetes increased risk cwyoefkd03zneuns72il stable;recheck 12 oqurop87pudzl lung nodules on neck CT recheck 6 bjuqhr66PMO3p tbs00ANy2 four low dgaxq19uxef normal,b12 low ajbrpn60 fit terst prb47ezqjsdi D deficiency;correcting Diagnosis Diagnosis Type Effective Dates Health Status Clinical In formant Service Annual physical Discharge 06/19/21 exam Diagnosis Vital Signs Most recent to oldest [Reference Range]: 1 Height 149 cm (06/19/21 9:35 AM) Weight 71.2 kg (06/19/21 9:35 AM) Oxygen Saturation [94-100 %] 98 % (06/19/21 9:35 AM) Pulse Rate [55-90 bpm] 60 bpm (06/19/21 9:35 AM) Body Mass Index [18.5-24.99] 32.07 *>HHI* (06/19/21 9:35 AM) Blood Pressure [90-138/55-84 mm Hg] 168/78 mm Hg *H* (06/19/21 9:35 AM) Respiratory Rate [16-30 br/min] 14 br/min *L* (06/19/21 9:35 AM) Temperature [96.8-100.4 DegF] 96.8 DegF (06/19/21 9:35 AM) Mode of Delivery (Oxygen) Room air (06/19/21 9:35 AM) Blood pressure sites Arm, right (06/19/21 9:35 AM) Temperature Route Oral (06/19/21 9:35 AM) Weight Obtained Via Standing scale (06/19/21 9:35 AM) Social History Social History Type Response 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
--- OUTSIDE RECORDS SUMMARY | 2022-06-11 12:47 | XMS_ITS | Continuity of Care Document ---
:1945 Author Organization [facility] Address [address] [place] [address]- Care Team Providers Name Role Phone Chino Vasquez MD Primary Care Physician [place] [facility] [place] 04[place]10/21 [facility] [address] [place] [address]- Attending Physician: Maxi Foster MD Admitting Physician: Maxi Foster MD Referring Physician: Chino Vasquez MD Allergies, Adverse Reactions, Alerts Substance Reaction Severity Status spironolactone1 Active lisinopril2 Active atorvastatin3 Active amLODIPine4 Active 4aikxf6bbyfnth xszvjohz1minw2ehban Immunizations Given and Recorded Vaccine Date Status [...] Given P atient Refuses 1Result Comment: [05/27/2017] [facility] [id number]/Late Reason: Wan to Standard Admin [id number] Note: #24Admin Note: historical data Medications aspirin [...] 04/03/21 13:25:00 EDT, Route to Pharmacy Electronically, [facility] # [facility], Partial fill upon patient request if the prescription is for a schedule II opio... Start Date: 04/03/21 Status: Orderedchlorthalidone 25 mg oral tablet See Instructions, TAKE ONE TABLET BY MOUTH EVERY DAY, # 30 tablet, Refills 5, Tot. Refills 5, Maintenance, 02/20/21 1:48:00 EDT, Instructions Replace Required Details, Route to Pharmacy Electronically,[facility] # [facility], 149, cm, 02/09/21 10:03:00 E... Start Date: 02/20/21 Status: Ordereddocusate sodium 100 mg oral capsule 100 mg, 1, capsule, By Mouth, Daily, PRN, Maintenance, as needed for constipation, 12/21/20 16:05:00EDT, ; Start Date: 12/21/20 Status: Ordereddoxycycline hyclate 100 mg oral capsule 2 capsule = 200 mg, By Mouth, Once, # 2 capsule, 0 Refills, Soft Stop, 03/27/21 10:17:00 EDT, [facility] # 50, Partial fill upon patient request if the prescription is for a schedule II opioid drug., 149, cm, 03/27/21 10:16:00 EDT, Height, 68.9, k... Start Date: 03/27/21 Status: OrderedFlovent HFA 110 mcg/inh inhalation aerosol See Instructions, INHALE 2 PUFFS TWO TIMES A DAY, # 12 Gm, 5 Refills, Maintenance, [facility] # 50, 149, cm, 02/09/21 10:03:00 EDT, Height, 68.9, kg, 12/21/20 8:52:00 EDT, Dry Weight Start Date: 02/09/21 Status: OrderedFLUoxetine 40 mg oral capsule See Instructions, TAKE 1 CAPSULE BY MOUTH DAILY., # 30 capsule, 5 Refills, Maintenance, [facility] # 50, 149, cm, 02/09/21 [...] tablet, 0 Refills, Maintenance, 03/27/21 7:54:00 EDT,Tablet, [facility] # 50, partial [...] 12/27/20 9:18:00 EDT, Route to Pharmacy Electronically, [facility], Partial fill upon patient [...] 12/27/20 9:18:00 EDT, Route to Pharmacy Electronically, [facility], Partial fill upon patient request if the prescription... Start Date: 12/27/20 Status: OrderedVentolin HFA 108 mcg/inh inhalation aerosol with adapter See Instructions, INHALE 2 PUFFS FOUR TIMES A DAY NEEDED FOR WHEEZING, # 18 Gm, 2 Refills, Maintenance, [facility] # 50, 149, cm, 02/09/21 [...] breast cancer Left, IDC, Active pT1c pN0, ER/MS positive, Her-2/angelito negative, 2012(Confirmed)22, 23 History of [...] Active use(Confirmed) Vitamin D Deficiency(Confirmed) Active 1per gastroenterology;cbdujsc6Tjaqslkh to gastroenterology no-show for etvizsihbbs0mgn6 40%4chronic yliackdqyk9FTKN:2 low xhyyy7NCJN test done,[employer] tbtdylp2cecqqk repeat sdx; injections,fentanyl,morphine,oxycodone er8Dr Oh no surgery re neck,zvuj3top Dr King,yesterday NO SURGERY, rx corsett,pool10 evaluated by two neurosurgeons,pain qgfqdbeb24pqxrb rx06Vshlpt 24-hour urine cnodhcfk93JGQL increased alpha2 xqnqnueag52ioaixl iron,ferrritin,cderloplasmin; neg HEP a,B,I12vsnrpvp Oswestry Disability Index: 48% ( severe disability ) on 04/15/16; updated [place] Back Pain Scale:44 on 04/15/16; updated [place]: 7 on 04/15/1616Initial Oswestry Disability Index: 48% ( severe disability ) on 11/24/14; initial [place] Back Pain Scale: 48 on 11/24/14; initial [place]: 5 on 11/24/1516egd . Bilateral common femoral artery endarterectomy. 3. Left common femoral artery patch angioplasty with PTFE. 4. 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 CURRENT THERAPY: Tamoxifen started in 11/17/14, prior anastrozole 11/2012- 09/2014, zoledronic acid, received 02/2015 and 08/2015.32zqevv45Lxnxxuuvrwcsri Summary Successful drug eluting stenting of the proximal LAD coronary artery with a 3.5X15 mm plus 3.0X8 mm Xience Alpine stents as described above. The second stent was needed to cover distal edge of th efirst stent in an overlapping fashion. 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
--- OUTSIDE RECORDS SUMMARY | 2022-06-11 12:47 | XMS_ITS | Continuity of Care Document ---
:1945 Author Organization [facility] Address [address] [place] [address]- Care Team Providers Name Role Phone Christina BAZAN, Chino Dao Primary Care Physician Encounter [facility] [place] Date(s): 01/24/21 - 02/23/21 [facility] [address] [place] [id number] Attending Physician: Admtr, Ar8 Admitting Physician: Admtr, Ar8 Referring Physician: Admtr, Ar8 Allergies, Adverse Reactions, Alerts Substance Reaction Severity Status spironolactone1 Active lisinopril2 Active atorvastatin3 Active amLODIPine4 Active 0ehgnh8gicfgdo jgvhdnzd2zwda0bjmbt Immunizations Given and Recorded Vaccine Date Status [...] atient Refuses 1Result Comment: [05/27/2017] [facility] [id number]/Late Reason: Wan to Standard Admin [id number] Note: #24Admin Note: historical data Medications aspirin [...] 02/08/21 12:32:00 EDT, Route to Pharmacy Electronically, [facility] # [facility], REPLACES METOPROLOL, 14... Start Date: 02/08/21 Stop Date: 02/03/22 Status: Orderedchlorthalidone 25 mg oral tablet See Instructions, TAKE ONE TABLET BY MOUTH EVERY DAY, # 30 tablet, Refills 5, Tot. Refills 5, Maintenance, 02/20/21 1:48:00 EDT, Instructions Replace Required Details, Route to Pharmacy Electronically,[facility] # [facility], 149, cm, 02/09/21 10:03:00 E... Start Date: 02/20/21 Status: Ordereddocusate sodium 100 mg oral capsule 100 mg, 1, capsule, By Mouth, Daily, PRN, Maintenance, as needed for constipation, 12/21/20 16:05:00EDT, ; Start Date: 12/21/20 Status: OrderedFlovent HFA 110 mcg/inh inhalation aerosol See Instructions, INHALE 2 PUFFS TWO TIMES A DAY, # 12 Gm, 5 Refills, Maintenance, [facility] # [facility], 149, cm, 02/09/21 10:03:00 EDT, Height, 68.9, kg, 12/21/20 8:52:00 EDT, Dry Weight Start Date: 02/09/21 Status: OrderedFLUoxetine 40 mg oral capsule See Instructions, TAKE 1 CAPSULE BY MOUTH DAILY., # 30 capsule, 5 Refills, Maintenance, [facility] # [facility], 149, cm, 02/09/21 [...] 0 Refills, Maintenance, 01/16/21 10:45:00 EDT, Tablet, [facility] [...] 5 Refills, Maintenance, 10/10/20 7:25:00 EDT, Tablet, [facility] # 50, 149.9, cm, 08/28/20 14:48:00 EST, Height, 68.9, kg, 07/12/19 14:56:00 EST, Dry Weight Start Date: 10/10/20 Status: OrderedoxyCODONE 5 mg oral tablet 5 mg, 1, tablet, By Mouth, Every 6 hours, PRN, # 5 tablet, Refills 0, Tot. Refills 0, Maintenance, Pain , Severe, 12/27/20 9:18:00 EDT, Route to Pharmacy Electronically, [facility], Partial fill upon patient [...] 01/22/21 11:44:00 EDT, Route to Pharmacy Electronically, [facility] # [facility], 149, cm, 01/18/21 11:04:00 EDT, Height, 68.9, kg, 12/21/20 8:52:00 EDT, Dry Weight Start Date: 01/22/21 Status: Orderedrosuvastatin 10 mg oral capsule 1 capsule = 10 mg, By Mouth, Daily, # 30 capsule, 11 Refills, Maintenance, 08/29/20 15:01:00 EST, Capsule, [facility] [...] 9:18:00 EDT, Route to Pharmacy Electronically, [facility], Partial fill upon patient request if the prescription... Start Date: 12/27/20 Status: OrderedVentolin HFA 108 mcg/inh inhalation aerosol with adapter 2 puffs, Inhalation, 4 times a day, PRN for wheezing, # 1 each, 1 Refills, Maintenance, 01/18/21 11:08:00 EDT, Aerosol, [facility] # [facility], 149, cm, 01/18/21 [...] Active use(Confirmed) Vitamin D Deficiency(Confirmed) Active 1per gastroenterology;gdbakbm5Qyluewjo to gastroenterology no-show for dgujmqzmbwh7zsc2 40%4chronic ekctsmxbta9RDHI:2 low ncrmx9PYJO test done,[employer]ER hcxzbwv6sbqjvp repeat sdx; injections,fentanyl,morphine,oxycodone er8Dr Oh no surgery re neck,rpik9jgk Dr King,yesterday NO SURGERY, rx corsett,pool10 evaluated by two neurosurgeons,pain xnixsyjz72ryggq ji93Phnzve 24-hour urine cdvpliqd83OKAV increased alpha2 mgghtdzyn01ppewzb iron,ferrritin,cderloplasmin; neg HEP a,B,N80hshihua Oswestry Disability Index: 48% ( severe disability ) on 04/15/16; updated [place] Back Pain Scale:44 on 04/15/16; updated [place]: 7 on 04/15/1616Initial Oswestry Disability Index: 48% ( severe disability ) on 11/24/14; initial [place] Back Pain Scale: 48 on 11/24/14; initial [place]: 5 on 11/24/1516egd . Bilateral common femoral artery endarterectomy. 3. Left common femoral artery patch angioplasty with PTFE. 4. 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 CURRENT THERAPY: Tamoxifen started in 11/17/14, prior anastrozole 11/2012- 09/2014, zoledronic acid, received 02/2015 and 08/2015.26sieyv67Orxcosyaxijssh Summary Successful drug eluting stenting of the proximal LAD coronary artery with a 3.5X15 mm plus 3.0X8 mm Xience Alpine stents as described above. The second stent was needed to cover distal edge of th efirst stent in an overlapping fashion. 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
--- OUTSIDE RECORDS SUMMARY | 2022-06-11 12:47 | XMS_ITS | Continuity of Care Document ---
:1945 Author Organization [facility] Adult Address [address] [place] [address]- Care Team Providers Name Role Phone Christina BAZAN, [place] Dao Primary Care Phys[facility] - 12/14/21 [facility] [address] [place] [address]- Attending Physician: Admtr, Ar8 Allergies, Adverse Reactions, Alerts Substance Reaction Severity Status spironolactone1 Active lisinopril2 Active thiazide diuretics3 Active amLODIPine4 Active atorvastatin5 Active 4aaeww3ggmcxgi wgrkxfty0kkiafzsrwqvd0gicen2ehsu Immunizations Given and Recorded Vaccine Date Status [...] Given P atient Refuses 1Result Comment: [facility]: [id number] Comment: [facility]: [id number] Comment: [facility]: [id number] Comment: [05/27/2017] [facility] [phone] Early/Late Reason: Wan to Standard Admin [id number] Note: #27Admin Note: historical data Medications aspirin [...] tablet, Refills 0, Route to Pharmacy Electronically, [facility] # 50, 149, cm, 10/16/21 14:48:00 EDT, Height, 68.9, kg, 12/21/20 8:52:00 EDT, Dry Weight Start Date: 10/17/21 Status: OrderedcloNIDine 0.1 mg oral tablet See Instructions, TAKE ONE TABLET BY MOUTH TWICE A DAY, # 60 tablet, Refills 5, Instructions ReplaceRequired Details, Route to Pharmacy Electronically, [facility] # 50, 149, cm, 10/18/21 [...] 30 tablet, 5 Refills, 11/12/21 9:33:00 EDT, [facility] # 50, 149, cm, 10/18/21 12:13:00 EDT, Height, 68.9, kg, 12/21/20 8:52:00 EDT, Dry Weight Start Date: 11/12/21 Status: OrderedFLUoxetine 40 mg oral capsule See Instructions, TAKE 1 CAPSULE BY MOUTH DAILY., # 30 capsule, 5 Refills, 08/15/21 13:23:00 EST, [facility] # 50, 149, cm, 08/15/21 11:10:00 EST, Height, 68.9, kg, 12/21/20 8:52:00 EDT, Dry Weight Start Date: 08/15/21 Status: Orderedhydrocortisone 2.5% topical cream 1 application, Topically, 3 times a day, # 30 Gm, 1 Refills, Maintenance, 01/09/21 12:15:00 EDT, Cream, [facility] # 50, 1 application Topically 3 times a day, 149.9, cm, 01/09/21 12:01:00 EDT, Height, 68.9, kg, 12/21/20 8:52:00 EDT, Dry Weight Start Date: 01/09/21 Status: OrderedHYDROmorphone 4 mg oral tablet 1 tablet = 4 mg, By Mouth, Every 8 hours, # 84 tablet, 0 Refills, Maintenance, 12/04/21 8:56:00 EDT,Tablet, [facility] # 50, partial fill [...] # 30 tablet, 5 Refills, 10/11/21 14:05:00 EDT,[facility] # 50, 149, cm, 08/15/21 [...] 11 Refills, Maintenance, 08/15/21 13:23:00 EST, Capsule, [facility] # 50, Partial fill upon patient request if the prescription is for a schedule II opioid drug., 149, cm, 08/15/21 11:10:00 EST, He... Start Date: 08/15/21 Status: OrderedTylenol 325 mg oral tablet 650 mg, 2, tablet, By Mouth, Every 4 hours, PRN, # 24 tablet, Refills 0, Tot. Refills 0, Maintenance, Pain , Mild, 12/27/20 9:18:00 EDT, Route to Pharmacy Electronically, [facility], Partial fill upon patient request if [...] breast cancer Left, IDC, Active pT1c pN0, ER/[place] positive, Her-2/angelito negative, 2012(Confirmed)22, 23 History of [...] opiate Active use(Confirmed) Multiple falls REFER PT 10/18/21 Active 2021(Confirmed) Frequent PVCs brefer holter(Confirmed) 10/18/21 Active Vitamin D Deficiency(Confirmed) Active 1per gastroenterology;vvclvzp9Ubsqzatq to gastroenterology no-show for wmjdbxezuom5jxo3 40%4chronic kstttnnyfm4TUCO:2 low gegwo6WQTS test done,[employer] kwaumfp8bsegnq repeat sdx; injections,fentanyl,morphine,oxycodone er8Dr Oh no surgery re neck,uylm0haj Dr King,yesterday NO SURGERY, rx corsett,pool10 evaluated by two neurosurgeons,pain coyfbstq72vsltp vr49Olvqlu 24-hour urine kbstypkm60SKPE increased alpha2 xveiyrfij45qyxujr iron,ferrritin,cderloplasmin; neg HEP a,B,G53xtyblnn Oswestry Disability Index: 48% ( severe disability ) on 04/15/16; updated [place] Back Pain Scale:44 on 04/15/16; updated [place]: 7 on 04/15/1616Initial Oswestry Disability Index: 48% ( severe disability ) on 11/24/14; initial [place] Back Pain Scale: 48 on 11/24/14; initial [place]: 5 on 11/24/1516egd . Bilateral common femoral artery endarterectomy. 3. Left common femoral artery patch angioplasty with PTFE. 4. 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 CURRENT THERAPY: Tamoxifen started in 11/17/14, prior anastrozole 11/2012- 09/2014, zoledronic acid, received 02/2015 and 08/2015.80lxcvo43Fjmtximcqslvlt Summary Successful drug eluting stenting of the proximal LAD coronary artery with a 3.5X15 mm plus 3.0X8 mm Xience Alpine stents as described above. The second stent was needed to cover distal edge of th efirst stent in an overlapping fashion. The stents were post-dilated using a 3.5 mm non-compliant balloon.25 now hyperthyroid,exopthalmous;Dr MurphyTqzxcm59icfhbev pre diabetes increased risk akxukkkx45djsrzx57hu stable;recheck 12 phvqyg53enanq lung nodules on neck CT recheck 6 blznbj02XFI6r wat38XCj1 four low lkjjj79vlxy normal,b12 low wpjqau14 fit terst avc15nmsmhqy D deficiency;correcting Procedures Procedure Date Related Diagnosis Body Site Status Plain X-ray of right wrist wrist fx 5/9/22 Completed Radiologic examination, spine, 01/07/17 Completed lumbosacral; 2 [...] Completed least 12 leads; with interpretation and rdyeyz86 11. Multilevel degenerative changes progressive from 03/28/2012. 2. Spondylolysis L5 with spondylolisthesis L5-S1. 3. Mild scoliosis. 4. 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
--- OUTSIDE RECORDS SUMMARY | 2022-06-11 12:47 | XMS_ITS | Continuity of Care Document ---
:1945 Author Organization [facility] Adult Address [address] [place] [address]- Care Team Providers Name Role Phone Christina BAZAN, [place] Dao Primary Care Physician [facility] 10[facility]23[facility]20 - 11/22/20 [facility] [address] [place] [address]- Allergies, Adverse Reactions, Alerts Substance Reaction Severity Status spironolactone1 Active lisinopril2 Active atorvastatin3 Active amLODIPine4 Active 9ticfx3wnfdfxp ttvcapuo9uwvu4pbdnn Immunizations Given and Recorded Vaccine Date Status [...] Given P atient Refuses 1Result Comment: [05/27/2017] [facility] [id number]/Late Reason: Wan to Standard Admin [id number] Note: #24Admin Note: historical data Medications Aspirin [...] EDT, Route to Pharmacy Electronically, [facility] # 50, Partial fill upon patient request if the prescription is for a schedule II opioid feliberto... Start Date: 10/26/20 Status: OrderedFlovent HFA 110 mcg/inh inhalation aerosol 2 puffs, Inhalation, 2 times a day, # 1 each, 5 Refills, Maintenance, 08/22/20 18:56:00 EST, Aerosol, [facility] # 50, 149.9, cm, 06/07/20 11:48:00 EST, Height, 68.9, kg, 07/12/19 14:56:00 EST, DryWeight Start Date: 08/22/20 Status: OrderedFLUoxetine 40 mg oral capsule 1 capsule = 40 mg, By Mouth, Daily, # 30 capsule, 5 Refills, Maintenance, 08/13/20 10:39:00 EST, Capsule, [facility] # 50, 149.9, [...] Refills, Maintenance, 10/31/20 8:03:00 EDT,Tablet, [facility] # 50, partial fill upon request, 11/07/20, 149.9, cm, 10/26/20 14:49:00 EDT, Height, 68.9, kg, 07/12/19 14:56:00 EST, Dry Weight Start Date: 10/31/20 Stop Date: 11/28/20 Status: Orderedlevothyroxine 125 mcg (0.125 mg) oral tablet 1 tablet = 125 mcg, By Mouth, Daily, # 30 tablet, 5 Refills, Maintenance, 10/10/20 7:25:00 EDT, Tablet, [facility] # 50, 149.9, cm, 08/28/20 14:48:00 EST, Height, 68.9, kg, 07/12/19 14:56:00 EST, Dry Weight Start Date: 10/10/20 Status: Orderedmetoprolol 25 mg oral tablet 25 mg, 1, tablet, By Mouth, 2 times a day, # 60 tablet, Refills 2, Tot. Refills 2, Maintenance, 11/13/20 16:41:00 EDT, Route to Pharmacy Electronically, [facility] # 50, 149.9, cm, 11/13/20 11:13:00 EDT, Height, 68.9, kg, 07/12/19 14:56:00 EST, Dr... Start Date: 11/13/20 Status: OrderedPriLOSEC OTC 20 mg oral delayed release tablet 1 tablet = 20 mg, By Mouth, Daily, # 90 tablet, 0 Refills, Maintenance, 11/06/20 16:02:00 EDT, CR Tablet, [facility] # 50, 149.9, cm, 10/26/20 14:49:00 EDT, Height, 68.9, kg, 07/12/19 14:56:00 EST,Dry Weight Start Date: 11/06/20 Status: Orderedrosuvastatin 10 mg oral capsule 1 capsule = 10 mg, By Mouth, Daily, # 30 capsule, 11 Refills, Maintenance, 08/29/20 15:01:00 EST, Capsule, [facility] # 50, Partial fill upon patient request if the prescription is for a schedule II opioid drug., 149.9, cm, 08/28/20 14:48:00 EST,... Start Date: 08/29/20 Status: OrderedVentolin HFA 108 mcg/inh inhalation aerosol with adapter 2 puffs, Inhalation, 4 times a day, PRN for wheezing, # 1 each, 5 Refills, Maintenance, 10/18/20 9:01:00 EDT, Aerosol, [facility] # 50, 149.9, [...] Active use(Confirmed) Vitamin D Deficiency(Confirmed) Active 1per gastroenterology;eskuebl4Iutyouzc to gastroenterology no-show for vkegswvfmeb1dts6 40%4chronic nemambaumd6FCAY:2 low ucraj7OALV test done,[employer] mqgmcon0hkobsn repeat sdx; injections,fentanyl,morphine,oxycodone er8Dr Oh no surgery re neck,wqrw1xbx Dr King,yesterday NO SURGERY, rx corsett,pool10 evaluated by two neurosurgeons,pain rzuswjfg21wcsqk qm40Vcaydm 24-hour urine slfuvpmf89BAGC increased alpha2 krixjdoto38flifgi iron,ferrritin,cderloplasmin; neg HEP a,B,I96rgpklvj Oswestry Disability Index: 48% ( severe disability ) on 04/15/16; updated [place] Back Pain Scale:44 on 04/15/16; updated [place]: 7 on 04/15/1616Initial Oswestry Disability Index: 48% ( severe disability ) on 11/24/14; initial [place] Back Pain Scale: 48 on 11/24/14; initial [place]: 5 on 11/24/1516egd . Bilateral common femoral artery endarterectomy. 3. Left common femoral artery patch angioplasty with PTFE. 4. 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 CURRENT THERAPY: Tamoxifen started in 11/17/14, prior anastrozole 11/2012- 09/2014, zoledronic acid, received 02/2015 and 08/2015.86mgmoi90Owsuownvjamtlo Summary Successful drug eluting stenting of the proximal LAD coronary artery with a 3.5X15 mm plus 3.0X8 mm Xience Alpine stents as described above. The second stent was needed to cover distal edge of th efirst stent in an overlapping fashion. 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
--- OUTSIDE RECORDS SUMMARY | 2022-06-11 12:47 | XMS_ITS | Continuity of Care Document ---
:1945 Author Organization [facility] Adult Address [address] [place] [address]- Care Team Providers Name Role Phone Christina BAZAN, [place] Dao Primary Care Physician [facility] 10[facility]16[facility]21 - 11/15/21 [facility] [address] [place] [address]- Allergies, Adverse Reactions, Alerts Substance Reaction Severity Status spironolactone1 Active lisinopril2 Active atorvastatin3 Active thiazide diuretics4 Active amLODIPine5 Active 3jpnxo0tnbcbsj oqtqebls8ztsi0dswtvnveftdx7nfbsa Immunizations Given and Recorded Vaccine Date Status [...] Not Given P atient Refuses 1Result Comment: [facility]: [id number] Comment: [facility]: [id number] Comment: [facility]: [id number] Comment: [05/27/2017] [facility] [phone] Early/Late Reason: Wan to Standard Admin Bxfkg3Cfsho Note: #27Admin Note: historical data Medications aspirin [...] tablet, Refills 0, Route to Pharmacy Electronically, [facility] # 50, 149, cm, 10/16/21 14:48:00 EDT, Height, 68.9, kg, 12/21/20 8:52:00 EDT, Dry Weight Start Date: 10/17/21 Status: OrderedcloNIDine 0.1 mg oral tablet See Instructions, TAKE ONE TABLET BY MOUTH TWICE A DAY, # 60 tablet, Refills 5, Instructions ReplaceRequired Details, Route to Pharmacy Electronically, [facility] # [facility], 149, cm, 10/18/21 [...] 30 tablet, 5 Refills, 11/12/21 9:33:00 EDT, [facility] # 50, 149, cm, 10/18/21 12:13:00 EDT, Height, 68.9, kg, 12/21/20 8:52:00 EDT, Dry Weight Start Date: 11/12/21 Status: OrderedFLUoxetine 40 mg oral capsule See Instructions, TAKE 1 CAPSULE BY MOUTH DAILY., # 30 capsule, 5 Refills, 08/15/21 13:23:00 EST, [facility] # 50, 149, cm, 08/15/21 11:10:00 EST, Height, 68.9, kg, 12/21/20 8:52:00 EDT, Dry Weight Start Date: 08/15/21 Status: Orderedhydrocortisone 2.5% topical cream 1 application, Topically, 3 times a day, # 30 Gm, 1 Refills, Maintenance, 01/09/21 12:15:00 EDT, Cream, [facility] # 50, 1 application Topically 3 times a day, 149.9, cm, 01/09/21 12:01:00 EDT, Height, 68.9, kg, 12/21/20 8:52:00 EDT, Dry Weight Start Date: 01/09/21 Status: OrderedHYDROmorphone 4 mg oral tablet 1 tablet = 4 mg, By Mouth, Every 8 hours, # 84 tablet, 0 Refills, Maintenance, 11/06/21 9:15:00 EDT,Tablet, [facility] # 50, partial fill upon [...] # 30 tablet, 5 Refills, 10/11/21 14:05:00 EDT,[facility] # [facility], 149, cm, 08/15/21 [...] Refills, Maintenance, 08/15/21 13:23:00 EST, Capsule, [facility] # 50, Partial fill upon patient request if the prescription is for a schedule II opioid drug., 149, cm, 08/15/21 11:10:00 EST, He... Start Date: 08/15/21 Status: OrderedTylenol 325 mg oral tablet 650 mg, 2, tablet, By Mouth, Every 4 hours, PRN, # 24 tablet, Refills 0, Tot. Refills 0, Maintenance, Pain , Mild, 12/27/20 9:18:00 EDT, Route to Pharmacy Electronically, [facility], Partial fill upon patient request if the prescription... Start Date: 12/27/20 Status: OrderedVentolin HFA 108 mcg/inh inhalation aerosol with adapter See Instructions, INHALE 2 PUFFS FOUR TIMES A DAY NEEDED FOR WHEEZING, # 18 Gm, 1 Refills, Maintenance, 10/18/21 11:44:00 EDT, [facility] # [facility], 149, cm, 10/18/21 [...] breast cancer Left, IDC, Active pT1c pN0, ER/[place] positive, Her-2/angeliot negative, 2012(Confirmed)22, 23 History of (NSTEMI) 201511/10/15 [...] 10/18/21 Active Vitamin D Deficiency(Confirmed) Active 1per gastroenterology;nopsrpq2Jjaedfan to gastroenterology no-show for cndhqqkmswc0vfr3 40%4chronic wyyusalvco9BPVW:2 low tlrwc3VKJF test done,[employer] oqxkere8rjwlfo repeat sdx; injections,fentanyl,morphine,oxycodone er8Dr Oh no surgery re neck,cuac7ykw Dr King,yesterday NO SURGERY, rx corsett,pool10 evaluated by two neurosurgeons,pain xftqrtux17wjnur nk18Xewrtk 24-hour urine bfxvswsv48OSNK increased alpha2 axapamnis95oqmwzg iron,ferrritin,cderloplasmin; neg HEP a,B,Y14hwjykyw Oswestry Disability Index: 48% ( severe disability ) on 04/15/16; updated [place] Back Pain Scale:44 on 04/15/16; updated [place]: 7 on 04/15/1616Initial Oswestry Disability Index: 48% ( severe disability ) on 11/24/14; initial [place] Back Pain Scale: 48 on 11/24/14; initial [place]: 5 on 11/24/1516egd . Bilateral common femoral artery endarterectomy. 3. Left common femoral artery patch angioplasty with PTFE. 4. 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 CURRENT THERAPY: Tamoxifen started in 11/17/14, prior anastrozole 11/2012- 09/2014, zoledronic acid, received 02/2015 and 08/2015.95fksng23Snadeprqwazhoc Summary Successful drug eluting stenting of the proximal LAD coronary artery with a 3.5X15 mm plus 3.0X8 mm Xience Alpine stents as described above. The second stent was needed to cover distal edge of th efirst stent in an overlapping fashion. 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
--- OUTSIDE RECORDS SUMMARY | 2022-06-11 12:47 | XMS_ITS | Continuity of Care Document ---
:1945 Author Organization [facility] [place] [address] [facility], [address] [address]- Care Team Providers Name Role Phone Chino Vasquez MD Primary Care Physician Encounter 08/12/19 - 08/19/19 [facility] [address], [address] [address]- [facility] Attending Physician: Chino Vasquez MD Admitting Physician: [...] atient Refuses 1Result Comment: [05/27/2017] [facility] [phone]/Late Reason: Wan to Standard Admin [id number] Note: #24Admin Note: historical data Medications amLODIPine 10 mg oral tablet 10 mg, 1, tablet, By Mouth, Daily, # 30 tablet, Refills 5, Tot. Refills 5, Maintenance, 08/02/19 15:31:00 EST, Route to Pharmacy Electronically, [facility] # [facility], 149.9, cm, 07/19/19 9:45:00 EST, Height, 68.9, kg, 07/12/19 14:56:00 EST, Dry Weight Start Date: 08/02/19 Status: OrderedAspirin = 81 mg, By Mouth, Daily, 0 Refills, Maintenance Start Date: 12/26/11 Status: OrderedBevespi Aerosphere 9 mcg-4.8 mcg/inh inhalation aerosol 2 puffs, Inhalation, 2 times a day, 4 by 28 doses lot [id number] 05-14, # 1 Doses, 11 Refills, Maintenance, 02/12/19 10:52:38 EDT, 2 puffs Inhalation 2 times a day,Instr:4 by 28 doses; lot [id number] 05-14 Start Date: 02/12/19 Status: OrderedFlovent HFA 110 mcg/inh inhalation aerosol 2 puffs, Inhalation, 2 times a day, # 1 each, 11 Refills, Maintenance, 02/12/19 10:52:12 EDT, Aerosol Start Date: 02/12/19 Status: OrderedFLUoxetine 40 mg oral capsule 1 capsule = 40 mg, By Mouth, Daily, # 30 capsule, 5 Refills, Maintenance, 08/16/19 11:35:00 EST, Capsule, [facility] # 50, 149.9, cm, 07/19/19 9:45:00 EST, Height, 68.9, kg, 07/12/19 14:56:00 EST, Dry Weight Start Date: 08/16/19 Status: Orderedhydrocortisone 2.5% topical cream 1 application, Topically, 3 times a day, # 30 Gm, 3 Refills, Maintenance, 08/10/18 11:58:13 EST, Cream, 1 application Topically 3 times a day Start Date: 08/10/18 Status: OrderedHYDROmorphone 4 mg oral tablet 1 tablet = 4 mg, By Mouth, Every 8 hours, # 84 tablet, 0 Refills, Maintenance, 08/10/19 18:15:00 EST, Tablet, [facility] # 50, partial fill upon request, 08/17/19, 149.9, cm, 07/19/19 9:45:00 EST, Height, 68.9, kg, 07/12/19 14:56:00 EST, Dry Weight Start Date: 08/10/19 Stop Date: 09/07/19 Status: Orderedlevothyroxine 125 mcg (0.125 mg) oral tablet 1 tablet = 125 mcg, By Mouth, Daily, # 30 tablet, 2 Refills, Maintenance, 07/20/19 14:38:00 EST, Tablet, [facility] # [...] 5 Refills, Maintenance, 05/11/19 9:20:40 EDT, Tablet, [facility] # [facility] Start Date: 05/11/19 Status: OrderedPriLOSEC OTC 20 mg oral delayed release tablet 1 tablet = 20 mg, By Mouth, Daily, # 90 tablet, 1 Refills, Maintenance, 08/17/19 10:42:00 EST, CR Tablet, [facility], 149.9, cm, 07/19/19 [...] breast left;lumpectomy 2012/xrt 2012(Confirmed)27, 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 of opiate Active analgesic(Confirmed)29, [...] Active 42 Vitamin D Deficiency(Confirmed) Active 1per gastroenterology;prsqwlx1Tyjlmiyn to gastroenterology no-show for vlyezepawjv7OUY1m jkr7YYq9 four low ufyrp5jmu5 40%6chronic qdccomaqvh6GMZI:2 low dyszy0LJBR test done,[place] [employer] nsinbvb3nqzqrq repeat sdx; injections,fentanyl,morphine,oxycodone er10Dr Oh no surgery re neck,pchy16zew Dr King,yesterday NO SURGERY, rx corsett,snok04ckdacushh by two neurosurgeons,pain xxjeyibm03gfjiq zt99Tpiczl 24-hour urine vrhsrilq59ZBGB increased alpha2 nrwdnkzjv80acxjzw iron,ferrritin,cderloplasmin; neg HEP a,B,C17 updated Oswestry Disability Index: 48% ( severe disability ) on 04/15/16; updated [place] Back Pain Scale:44 on 04/15/16; updated [place]: 7 on 04/15/1618Initial Oswestry Disability Index: 48% ( severe disability ) on 11/24/14; initial [place] Back Pain Scale: 48 on 11/24/14; initial [place]: 5 on 11/24/1518egd [id number]. Bilateral common femoral artery endarterectomy. 3. Left common femoral artery patch angioplasty with PTFE. 4. Gaxg-fn-ayila femoral-femoral bypass with 8-mm ringed PTFE lzckr83xkggczc 20140829in VG18gbyfq57Tyefsmkmlmiaez Summary Successful drug eluting stenting of the proximal LAD coronary artery with a 3.5X15 mm plus 3.0X8 mm Xience Alpine stents as described above. The second stent was needed to cover distal edge of th efirst stent in an overlapping fashion. 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 agreement iue38liwh 664tix0 2 epworth 804pfipak37ag stable;recheck 12 bpeiij84nkoxh lung nodules on neck CT recheck 6 ievthg26oltt normal,b12 low kevkzi13kcn terst jei00lswwzca D deficiency;avpprjdxfa07prc2 40%42Per pulmonary function testing April 2014 Procedures Procedure Date Related Diagnosis Body Site Status DEXA - osteiopenia 08/19/19 Completed Results Radiology Reports Exam Date Time Procedure Performing Provider Status 1/16/20 11:50 AM Dexa Bone Density (Axial) Cassy Velez [facility] (Verified) Notes:(Dexa Bone Density (Axial)) Reason For Exam: OsteopeniaRESULT: DEXA BONE DENSITY (AXIAL) Bone Density Report Name: ABRAM SHIRLEY Age: 73 Sex: Female Ethnicity: White Date of : 1945 Indication: POSTMENOPAUSAL. Referring Provider: CHINO VASQUEZ MD Study: Bone densitometry was performed. Exam Date: August 12, 2019 Accession number: [id number] Bone Density: Region BMD T-score Z-score Classification Femoral Neck (Left) 0.639 -1.9 0.2 Osteopenia Total Hip (Left) 0.870 -0.6 1.2 Normal Total Forearm (Left) 0.500 -1.5 1.0 1/3 Forearm (Left) 0.553 -2.3 0.2 Osteopenia UD Forearm (Left) 0.415 -0.5 1.3 World Health Organization criteria for BMD impression classify patients as: Normal (T-score at or above -1.0), Osteopenia (T-score between -1.0 and -2.5), or Osteoporosis (T-score at or below -2.5). 10-year Fracture Risk: FRAX not reported because: Prior hip or vertebral fracture Previous Exams: Region Exam Age BMD T-score BMD Change BMD Change Date g/cm2 vs Baseline vs Previous Total Hip(Left) 08/12/2019 73 0.870 -0.6 15.2%* 16.1%* 06/06/2016 70 0.749 -1.6 -0.8% -0.6% 05/18/2014 68 0.754 -1.5 -0.2% -0.2% 12/18/2011 66 0.755 -1.5 Femoral Neck(Left) 08/12/2019 73 0.639 -1.9 2.5% 3.0% 06/06/2016 70 0.621 -2.1 -0.5% 3.6% 05/18/2014 68 0.599 -2.3 -4.0% -4.0% 12/18/2011 66 0.624 -2.0 1/3 Forearm(Left) 08/12/2019 73 0.553 -2.3 -1.0% -1.7% 06/06/2016 70 0.563 -2.2 0.7% 0.7% 05/18/2014 68 0.559 -2.2 *Denotes significance at 95% confidence level, LSC for Total Hip = 0.027 g/cm2 Clinical Information Provided by Patient: Have had a previous hip or vertebral fracture Has had a low trauma fracture Has the following medical conditions: Asthma or Emphysema, Cancer Patient maximum height was 63.0 Menopause Age: 51 Onset of menses at age 5 Number of children 2 Impression: The patient has osteopenia as determined by WHO criteria. Reported by: Marco Antonio oNrman M.D. on 08/19/2019 1:40:00 PM. 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
[2022-06-11] MEDS: Heparin Sodium,Porcine 5,000 UNIT/ML VIAL 5000 UNIT IVPUSH (12:48)
--- OUTSIDE RECORDS SUMMARY | 2022-06-11 12:48 | XMS_ITS | Continuity of Care Document ---
:1945 Author Organization [facility] Address [address] [place] [address]- Care Team Providers Name Role Phone Chino Vasquez MD Primary Care Physician En[place] [facility] Date(s): 04/25/22 - 05/02/22 [facility] [address] [place] [address]- Encounter Diagnosis Right knee pain (Discharge Diagnosis) - 04/28/22 Gout (Discharge Diagnosis) - 04/28/22 Benign Essential Hypertension (Discharge Diagnosis) - 04/28/22 Hypothyroidism following radioiodine therapy (Discharge Diagnosis) - 04/28/22 Attending Physician: Not on Staff, Attending MD Referring Physician: Chino Vasquez MD Allergies, Adverse Reactions, Alerts Substance Reaction Severity Status spironolactone1 Active lisinopril2 Active atorvastatin3 Active thiazide diuretics4 Active amLODIPine5 Active 8joszv9ldpddcm ykihdzbu1pvuj8jqoaoinrslvz0cspto Immunizations Given and Recorded Vaccine Date Status [...] Not Given P atient Refuses 1Result Comment: [facility]: [phone] Comment: [05/27/2017] [facility] [phone] 3Early/Late Reason: Wan to Standard Admin Kobpt5Bkcopk Comment: [facility]: [phone] Comment: [facility]: [phone] Note: #27Admin Note: historical data Medications aspirin 81 mg oral delayed release tablet 81 mg, 1, tablet, By Mouth, Daily, Maintenance, 12/21/20 16:02:00 EDT, ; Start Date: 12/21/20 Status: Orderedbudesonide/formoterol/glycopyrrolate 160 mcg-4.8 mcg-9 mcg/inh inhalation aerosol 2 puffs, Inhalation, Every 12 hours, rinse mouth and throat after use, # 1 each, 11 Refills, Maintenance, 10/16/21 15:12:00 EDT, Aerosol, [facility] # 50, Partial fill [...] 01/14/22 21:32:00 EDT, Route to Pharmacy Electronically, [facility] # 50, 149, cm, 01/09/22 [...] Mouth, Daily, # 30 capsule, 5 Refills, [facility] # 50, 149, cm, 02/06/22 9:42:00 EDT, Height, 68.5, kg, 11/19/21 15:42:00 EDT, Dry Weight Start Date: 02/11/22 Status: Orderedfurosemide 20 mg oral tablet 20 mg, 1, tablet, By Mouth, Daily, # 90 tablet, Refills 0, Tot. Refills 0, Maintenance, 02/21/22 12:19:00 EDT, Route to Pharmacy Electronically, [facility] # 50, 149, cm, 02/21/22 [...] 0 Refills, Maintenance, 03/26/22 17:12:00 EDT, Tablet, [facility] # 50, partial fill [...] tablet, 5 Refills, Maintenance, 04/08/22 12:28:00 EDT, [facility] # 50, 149, cm, 03/21/22 [...] to Pharmacy Electronically, [facility], Partial fill upon patient request if the prescription... Start Date: 12/27/20 Status: OrderedVentolin HFA 108 mcg/inh inhalation aerosol with adapter See Instructions, INHALE 2 PUFFS FOUR TIMES A DAY NEEDED FOR WHEEZING, # 18 Gm, 5 Refills, [facility] # 50, 149, cm, 11/19/21 [...] Active Essential familial Confirmed Active hyperlipidemia Ex-smoker, 07/29 ppd Confirmed Active X23 years, quit 1997 Excessive weight Confirmed Active gain12 Fatty liver13, 14 Confirmed Active Limitation due to Confirmed Active yllufyfhxd00, 16 Opiate use Confirmed Active Gastro-esophageal Confirmed Active reflux EGD [id number] Graves' disease Confirmed Active H/O fracture of wrist Confirmed 12/03/21 Active rt History of peripheral Confirmed 05/17/16 Active artery ylnmpn93 H/O compression Confirmed Active fracture of sacrum 2014 tawottjtjnw25 History of alcohol Confirmed Active abuse20, 21 [...] following radioiodine Impaired Fasting Confirmed 06/03/07 Active Ybiqnvk88 Anemia, iron Confirmed Active deficiency neg colo 2018.neg egd 2020 per gi (greef) no addtl workuyp Low back pain Confirmed Active Failed back syndrome, Confirmed Active lumbar Lung nodules remote Confirmed Active wzttel45, 28, 29 Lymphedema of both Confirmed Active lower extremities Depression, major30, Confirmed Active 31 Fx metatarsal rt Confirmed 04/27/19 Active second Nocturia Confirmed 10/18/21 Active Normocytic Confirmed Active normochromic tlgebw92, 33 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 Hmqeokkwor69 Confirmed Active PAD (peripheral Confirmed Active artery disease)stenting 2015 Chronic prescription Confirmed Active opiate use Multiple falls REFER Confirmed 10/18/21 Active PT Sep 2021 Frequent PVCs brefer Confirmed 10/18/21 Active holter Vitamin D Deficiency Confirmed Active 1per gastroenterology;nsxmhqq6Aysjwmlt to gastroenterology no-show for uznakvkukyl0wqg5 40%4chronic nnvjkhghqb5DJPF:2 low nctyy3UQAE 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,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 nvzhwkf3agnflk repeat sdx; injections,fentanyl,morphine,oxycodone er8Dr Oh no surgery re neck,tfrh7rqh Dr King,yesterday NO SURGERY, rx corsett,pool10 evaluated by two neurosurgeons,pain wxosbxsx98vedab jq18Rfdblr 24-hour urine bbeeennd21FALV increased alpha2 mokhjorhe82ruqadl iron,ferrritin,cderloplasmin; neg HEP a,B,L12ksohjhr Oswestry Disability Index: 48% ( severe disability ) on 04/15/16; updated [place] Back Pain Scale:44 on 04/15/16; updated [place]: 7 on 04/15/1616Initial Oswestry Disability Index: 48% ( severe disability ) on 11/24/14; initial [place] Back Pain Scale: 48 on 11/24/14; initial [place]: 5 on 11/24/1516egd . Bilateral common femoral artery endarterectomy. 3. Left common femoral artery patch angioplasty with PTFE. 4. 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 CURRENT THERAPY: Tamoxifen started in 11/17/14, prior anastrozole 11/2012- 09/2014, zoledronic acid, received 02/2015 and 08/2015.73zaetz39Caaokgryfozusy Summary Successful drug eluting stenting of the proximal LAD coronary artery with a 3.5X15 mm plus 3.0X8 mm Xience Alpine stents as described above. The second stent was needed to cover distal edge of th efirst stent in an overlapping fashion. The stents were post-dilated using a 3.5 mm non-compliant balloon.25 now hyperthyroid,exopthalmous;Dr MurphyCltexh18qlhuinm pre diabetes increased risk qquatyxz38tlibsv11dn stable;recheck 12 odmzmt65bbjta lung nodules on neck CT recheck 6 kxrflj01OBF9z cay61MIo9 four low vquoq39zbkl normal,b12 low wofpac70 fit terst krs93pfkvnps D deficiency;correcting Diagnosis Diagnosis Type Effective Dates Health Clinical Infor mant Status Service Right knee pain Discharge 04/28/22 Diagnosis Gout Discharge 04/28/22 Diagnosis Benign Essential Discharge 04/28/22 Hypertension Diagnosis Hypothyroidism Discharge 04/28/22 following Diagnosis radioiodine therapy Vital Signs Most recent to oldest [Reference Range]: 1 Height 149.0 cm (04/25/22 10:28 AM) Weight 74.6 kg (04/25/22 10:28 AM) Oxygen Saturation [94-100 %] 95 % (04/25/22 10:28 AM) Pulse Rate [55-90 bpm] 72 bpm (04/25/22 10:28 AM) Body Mass Index [18.5-24.99 kg/m2] 33.6 kg/m2 *>HHI* (04/25/22 10:28 AM) Blood Pressure [90-138/55-84 mm Hg] 92/59 mm Hg (04/25/22 10:28 AM) Mode of Delivery (Oxygen) Room air (04/25/22 10:28 AM) Blood pressure sites Arm, left (04/25/22 10:28 AM) Weight Obtained Via Standing scale (04/25/22 10:28 AM) Social History Social History Type Response 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
--- OUTSIDE RECORDS SUMMARY | 2022-06-11 12:48 | XMS_ITS | Continuity of Care Document ---
:1945 Author Organization [facility] Address [address] [place] [address]- Care Team Providers Name Role Phone Christina BAZAN, Chino Dao Primary Care Physician Encounter [facility] Date(s): 08/02/21 - 09/01/21 [facility] [address] [place] [address]- Allergies, Adverse Reactions, Alerts Substance Reaction Severity Status spironolactone1 Active lisinopril2 Active atorvastatin3 Active thiazide diuretics4 Active amLODIPine5 Active 0eyrse4mtlctlb dehlqnsy4uiki0scjoxsjgwhzl4xqdeo Immunizations Given and Recorded Vaccine Date Status [...] atient Refuses 1Result Comment: [facility]: [id number] Comment: [facility]: [phone] Comment: [05/27/2017] [facility] [phone]/Late Reason: Wan to Standard Admin Cruok3Qnjvh Note: #26Admin Note: historical data Medications aspirin [...] 04/13/21 5:37:00 EDT, Route to Pharmacy Electronically, [facility] # [facility], Partial fill upon patient request if the prescription is for a schedule II op... Start Date: 04/13/21 Status: Orderedclopidogrel 75 mg oral tablet 1, tablet, By Mouth, Daily, # 90 tablet, Refills 0, Route to Pharmacy Electronically, [facility], 149, cm, 07/18/21 14:05:00 EST, [...] 0 Refills, Soft Stop, 03/27/21 10:17:00 EDT, [facility] # 50, Partial fill upon patient request if the prescription is for a schedule II opioid drug., 149, cm, 03/27/21 10:16:00 EDT, Height, 68.9, k... Start Date: 03/27/21 Status: Orderedezetimibe 10 mg oral tablet See Instructions, TAKE ONE TABLET BY MOUTH EVERY DAY, # 30 tablet, 5 Refills, 08/15/21 13:24:00 EST,[facility] # [facility], 149, cm, 08/15/21 11:10:00 EST, Height, 68.9, kg, 12/21/20 8:52:00 EDT, Dry Weight Start Date: 08/15/21 Status: OrderedFLUoxetine 40 mg oral capsule See Instructions, TAKE 1 CAPSULE BY MOUTH DAILY., # 30 capsule, 5 Refills, 08/15/21 13:23:00 EST, [facility] # 50, 149, cm, 08/15/21 11:10:00 EST, Height, 68.9, kg, 12/21/20 8:52:00 EDT, Dry Weight Start Date: 08/15/21 Status: Orderedhydrocortisone 2.5% topical cream 1 application, Topically, 3 times a day, # 30 Gm, 1 Refills, Maintenance, 01/09/21 12:15:00 EDT, Cream, [facility] # [facility], 1 application Topically 3 times a day, 149.9, cm, 01/09/21 12:01:00 EDT, Height, 68.9, kg, 12/21/20 8:52:00 EDT, Dry Weight Start Date: 01/09/21 Status: OrderedHYDROmorphone 4 mg oral tablet 1 tablet = 4 mg, By Mouth, Every 8 hours, # 84 tablet, 0 Refills, Maintenance, 08/10/21 16:13:00 EST, Tablet, [facility] [...] # 30 tablet, 5 Refills, 08/15/21 13:24:00 EST,[facility] # [facility], 149, cm, 08/15/21 11:10:00 [...] 12/27/20 9:18:00 EDT, Route to Pharmacy Electronically, [facility], Partial fill upon patient request [...] Active use(Confirmed) Vitamin D Deficiency(Confirmed) Active 1per gastroenterology;azhbywa1Opuhmasf to gastroenterology no-show for xkeurrjwavq1cni0 40%4chronic cgaucuvpgn9RMZE:2 low nljtg4HQNU 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,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 ivsrzyw5chgffo repeat sdx; injections,fentanyl,morphine,oxycodone er8Dr Oh no surgery re neck,pzib8agy Dr King,yesterday NO SURGERY, rx corsett,pool10 evaluated by two neurosurgeons,pain mlwvfbez66kptzn gc12Erxyxz 24-hour urine duevawty99CYZA increased alpha2 mrrizapqz69ibnaaa iron,ferrritin,cderloplasmin; neg HEP a,B,A61vrmjlus Oswestry Disability Index: 48% ( severe disability ) on 04/15/16; updated [place] Back Pain Scale:44 on 04/15/16; updated [place]: 7 on 04/15/1616Initial [place]estry Disability Index: 48% ( severe disability ) on 11/24/14; initial [place] Back Pain Scale: 48 on 11/24/14; initial [place]: 5 on 11/24/1516egd . Bilateral common femoral artery endarterectomy. 3. Left common femoral artery patch angioplasty with PTFE. 4. 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 CURRENT THERAPY: Tamoxifen started in 11/17/14, prior anastrozole 11/2012- 09/2014, zoledronic acid, received 02/2015 and 08/2015.83uaqdi99Yqmhsqalwqgykg Summary Successful drug eluting stenting of the proximal LAD coronary artery with a 3.5X15 mm plus 3.0X8 mm Xience Alpine stents as described above. The second stent was needed to cover distal edge of th efirst stent in an overlapping fashion. 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
--- OUTSIDE RECORDS SUMMARY | 2022-06-11 12:48 | XMS_ITS | Continuity of Care Document ---
:1945 Author Organization [facility] Address [address] [place] [address]- Care Team Providers Name Role Phone Christina BAZAN, Chino Dao Primary Care Physician [place] [facility] [place](s): 03/21/22 - 03/28/22 [facility] [address] [place] [address]- Encounter Diagnosis Fall on or from sidewalk curb (Discharge Diagnosis) - 03/21/22 Injury of left foot (Discharge Diagnosis) - 03/21/22 Attending Physician: Matty COUGHLIN, Solange Briceño Allergies, Adverse Reactions, Alerts Substance Reaction Severity Status spironolactone1 Active lisinopril2 Active thiazide diuretics3 Active amLODIPine4 Active atorvastatin5 Active 9avynl9ndjqwck uahbisoq2dxnjcsqgzewh4ojwjo9aoae Immunizations Given and Recorded Vaccine Date Status [...] Given P atient Refuses 1Result Comment: [facility]: [id number] Comment: [facility]: [id number] Comment: [facility]: [phone] Comment: [05/27/2017] [facility] [phone] Early/Late Reason: Wan to Standard Admin [id number] Note: #27Admin Note: historical data Medications aspirin [...] [facility], 149, cm, 01/09/22 [...] 5 Refills, 11/12/21 9:33:00 EDT, [facility] # [facility], 149, cm, 10/18/21 12:13:00 EDT, Height, 68.9, kg, 12/21/20 8:52:00 EDT, Dry Weight Start Date: 11/12/21 Status: OrderedFLUoxetine 40 mg oral capsule 1 capsule, By Mouth, Daily, # 30 capsule, 5 Refills, [facility] # [facility], 149, cm, 02/06/22 9:42:00 EDT, Height, 68.5, kg, 11/19/21 15:42:00 EDT, Dry Weight Start Date: 02/11/22 Status: Orderedfurosemide 20 mg oral tablet 20 mg, 1, tablet, By Mouth, Daily, # 90 tablet, Refills 0, Tot. Refills 0, Maintenance, 02/21/22 12:19:00 EDT, Route to Pharmacy Electronically, [facility], 149, cm, 02/21/22 [...] Refills, Maintenance, 03/26/22 17:12:00 EDT, Tablet, [facility] [...] tablet, 5 Refills, 10/11/21 14:05:00 EDT,[facility] # [facility], [...] 12/27/20 9:18:00 EDT, Route to Pharmacy Electronically, [facility], Partial fill upon patient [...] 10/18/21 Active Vitamin D Deficiency(Confirmed) Active 1per gastroenterology;zvoydtb1Ywpgezzw to gastroenterology no-show for rstwkioxxdz4ljv0 40%4chronic ldtjzgnemm1JDTR:2 low uvnbi8ECJF test done,[employer] czrxmct2dtwwkl repeat sdx; injections,fentanyl,morphine,oxycodone er8Dr Oh no surgery re neck,ieeu9hat Dr King,yesterday NO SURGERY, rx corsett,pool10 evaluated by two neurosurgeons,pain ctqloqla22knimx yy31Hsgoou 24-hour urine jwziznfu81ZIFV increased alpha2 qqjaqdxna87dqrvzw iron,ferrritin,cderloplasmin; neg HEP a,B,M15lamzbhb Oswestry Disability Index: 48% ( severe disability ) on 04/15/16; updated [place] Back Pain Scale:44 on 04/15/16; updated [place]: 7 on 04/15/1616Initial Oswestry Disability Index: 48% ( severe disability ) on 11/24/14; initial [place] Back Pain Scale: 48 on 11/24/14; initial [place]: 5 on 11/24/1516egd . Bilateral common femoral artery endarterectomy. 3. Left common femoral artery patch angioplasty with PTFE. 4. 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 CURRENT THERAPY: Tamoxifen started in 11/17/14, prior anastrozole 11/2012- 09/2014, zoledronic acid, received 02/2015 and 08/2015.33ylttv12Oeweniediifday Summary Successful drug eluting stenting of the proximal LAD coronary artery with a 3.5X15 mm plus 3.0X8 mm Xience Alpine stents as described above. The second stent was needed to cover distal edge of th efirst stent in an overlapping fashion. The stents were post-dilated using a 3.5 mm non-compliant balloon.25 now hyperthyroid,exopthalmous;Dr MurphyIyqwmz41phhznjg pre diabetes increased risk hsshlsrw62btojwt67hr stable;recheck 12 krbhgd92erkoq lung nodules on neck CT recheck 6 mptjjz48WWR0r icj95FZu6 four low lhavm02uqkj normal,b12 low iwjymc87 [address] jix45blljwlm D deficiency;correcting Diagnosis Diagnosis Type Effective Dates Health Status Clinical In formant Service Fall on or from Discharge 03/21/22 sidewalk curb Diagnosis Injury of left Discharge 03/21/22 foot Diagnosis Vital Signs Most recent to oldest [Reference Range]: 1 Height 149.0 cm (03/21/22 8:09 AM) Oxygen Saturation [94-100 %] 96 % (03/21/22 8:09 AM) Pulse Rate [55-90 bpm] 58 bpm (03/21/22 8:09 AM) Blood Pressure [90-138/55-84 mm Hg] 123/83 mm Hg (03/21/22 8:09 AM) Blood pressure sites Arm, left (03/21/22 8:09 AM) Social History Social History Type Response 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
--- OUTSIDE RECORDS SUMMARY | 2022-06-11 12:48 | XMS_ITS | Continuity of Care Document ---
:1945 Author Organization [facility] Address [address] [place] [address]- Care Team Providers Name Role Phone Christina BAZAN, Chino Dao Primary Care Physician Encounter [facility] Date(s): 03/22/20 - 04/21/20 [facility] [address] [place] [address]- [facility] Allergies, Adverse Reactions, Alerts Substance Reaction Severity Status atorvastatin1 Active amLODIPine2 Active 2ejcw7pgdpg Immunizations Given and Recorded Vaccine Date Status [...] Comment: [05/27/2017] [facility] [id number]/Late Reason: Wan to Standard Admin [id number] Note: #24Admin Note: historical data Medications Aspirin = 81 mg, By Mouth, Daily, 0 Refills, Maintenance Start Date: 12/26/11 Status: OrderedBevespi Aerosphere 9 mcg-4.8 mcg/inh inhalation aerosol 2 puffs, Inhalation, 2 times a day, 4 by 28 doses lot [id number] 05-14, # 1 Doses, 11 Refills, Maintenance, 02/12/19 10:52:38 EDT, 2 puffs Inhalation 2 times a day,Instr:4 by 28 doses; lot [id number] 05-14 Start Date: 02/12/19 Status: Orderedcalcium (as carbonate) 500 mg oral tablet, chewable 1 tablet = 500 mg, Chew, Daily, # 150 tablet, 0 Refills, Maintenance, 09/21/19 14:07:00 EST, Chew Tablet Start Date: 09/21/19 Status: OrderedFlovent HFA 110 mcg/inh inhalation aerosol 2 puffs, Inhalation, 2 times a day, # 1 each, 5 Refills, Maintenance, 02/18/20 16:43:00 EDT, Aerosol, [facility], 149.9, cm, [...] hours, # 84 tablet, 0 Refills, Maintenance, 04/18/20 8:32:00 EDT,Tablet, [facility] # [facility], partial fill upon request, 04/25/20, 149.9, cm, 02/14/20 11:11:00 EDT, Height, 68.9, kg, 07/12/19 14:56:00 EST, Dry Weight Start Date: 04/18/20 Stop Date: 05/16/20 Status: Orderedlevothyroxine 125 mcg (0.125 mg) oral [...] kg, 07/12/19 14:56:00 EST, Dr... Start Date: 02/14/20 Status: Orderedpravastatin 20 mg [...] Active use(Confirmed) Vitamin D Deficiency(Confirmed) Active 1per gastroenterology;tkwbagv5Vryjnvkj to gastroenterology no-show for tosoeuxgjsj7jsm3 40%4chronic qwqwovraum9WNPK:2 low qlzms0BIEW test done,[employer] bolhner8bdfrhs repeat sdx; injections,fentanyl,morphine,oxycodone er8Dr Oh no surgery re neck,ttot3dqu Dr King,yesterday NO SURGERY, rx corsett,pool10 evaluated by two neurosurgeons,pain fwcabztl37efhws gh87Vvymlq 24-hour urine koftjpwn84XECF increased alpha2 tjixogjyj61ekbnsc iron,ferrritin,cderloplasmin; neg HEP a,B,U58hqtnnow Oswestry Disability Index: 48% ( severe disability ) on 04/15/16; updated [place] Back Pain Scale:44 on 04/15/16; updated [place]: 7 on 04/15/1616Initial Oswestry Disability Index: 48% ( severe disability ) on 11/24/14; initial [place] Back Pain Scale: 48 on 11/24/14; initial [place]: 5 on 7egd . Bilateral common femoral artery endarterectomy. 3. Left common femoral artery patch angioplasty with PTFE. 4. 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 CURRENT THERAPY: Tamoxifen started in 11/17/14, prior anastrozole 11/2012- 09/2014, zoledronic acid, received 02/2015 and 08/2015.58vxgkd76Msidiucoikykpz Summary Successful drug eluting stenting of the proximal LAD coronary artery with a 3.5X15 mm plus 3.0X8 mm Xience Alpine stents as described above. The second stent was needed to cover distal edge of th efirst stent in an overlapping fashion. 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
--- OUTSIDE RECORDS SUMMARY | 2022-06-11 12:48 | XMS_ITS | Continuity of Care Document ---
:1945 Author Organization [facility] Address [address] [place] [address]- Care Team Providers Name Role Phone Christina BAZAN, Chino Dao Primary Care Physician Encounter [facility] [place] Date(s): 04/09/22 - 05/09/22 [facility] [address], [place] [address] Attending Physician: Saurabh Coronado Admitting Physician: AdmtrSaurabh Referring Physician: Admtr, Ar8 Allergies, Adverse Reactions, Alerts Substance Reaction Severity Status spironolactone1 Active lisinopril2 Active atorvastatin3 Active thiazide diuretics4 Active amLODIPine5 Active 3eqdws7uyyxudi izechkki2xtmh2wrkonshjbakg7ravsz Immunizations Given and Recorded Vaccine Date Status [...] Not Given P atient Refuses 1Result Comment: [facility]: [id number] Comment: [05/27/2017] [facility] [id number] 3Early/Late Reason: Wan to Standard Admin Ybmno3Zdifpv Comment: [facility]: [id number] Comment: [facility]: [id number] Note: #27Admin Note: historical data Medications aspirin [...] [facility], 149, cm, 01/09/22 [...] 5 Refills, 11/12/21 9:33:00 EDT, [facility] # [facility], 149, cm, 10/18/21 [...] Maintenance, 03/26/22 17:12:00 EDT, Tablet, [facility] [...] 08/15/21 13:23:00 EST, Capsule, [facility], Partial fill [...] 12/27/20 9:18:00 EDT, Route to Pharmacy Electronically, [facility], Partial fill [...] Confirmed Active Limitation due to Confirmed Active fuqfpyrovm00, 16 Opiate use Confirmed Active Gastro-esophageal Confirmed Active reflux EGD [id number] Graves' disease Confirmed Active H/O fracture of wrist Confirmed 12/03/21 Active rt History of peripheral Confirmed 05/17/16 Active artery nawsgt39 H/O compression Confirmed Active fracture of sacrum 2014 sejqoquixgw03 History of alcohol Confirmed Active abuse20, 21 H/O nausea Confirmed Active History of ischemic Confirmed 12/21/20 Active colitis History of breast Confirmed Active cancer Left, IDC, pT1c pN0, ER/CA positive, Her-2/angelito negative, [id number], 23 History of (NSTEMI) Confirmed 11/10/15 Active 2015 DES24 S/P drug eluting Confirmed Active coronary stent placement Hyperkalemia Confirmed 03/08/19 Active Hyponatremia Confirmed Active Hypothyroidism Confirmed Active following radioiodine eimsxfg31 Impaired Fasting Confirmed 06/03/07 Active Jfbxfgr75 Anemia, iron Confirmed Active deficiency neg colo 2018.neg egd 2020 per gi (greef) no addtl workuyp Low back pain Confirmed Active Failed back syndrome, Confirmed Active lumbar Lung nodules remote Confirmed Active rvwxys52, 28, 29 Lymphedema of both Confirmed Active lower extremities Depression, major30, Confirmed Active 31 Fx metatarsal rt Confirmed 04/27/19 Active second Nocturia Confirmed 10/18/21 Active Normocytic Confirmed Active normochromic udvdzl37, 33 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 Qdurqijuue63 Confirmed Active PAD (peripheral Confirmed Active artery disease)stenting 2015 Chronic prescription Confirmed Active opiate use Multiple falls REFER Confirmed 10/18/21 Active PT Sep 2021 Frequent PVCs brefer Confirmed 10/18/21 Active holter Vitamin D Deficiency Confirmed Active 1per gastroenterology;vmethsi7Uskrjxbs to gastroenterology no-show for hxnxwofahet8tbc5 40%4chronic xhfhffbnvx3PUZG:2 low gmxkh3CKHO test done,[employer] lhcjgvv6toqgac repeat sdx; injections,fentanyl,morphine,oxycodone er8Dr Oh no surgery re neck,rwuq7miq Dr King,yesterday NO SURGERY, rx corkiko,pool10 evaluated by two neurosurgeons,pain gbocehvi76jgonc uy63Bbsmeh 24-hour urine tppwtvpv54TKIX increased alpha2 voqklpfae82uqqajm iron,ferrritin,cderloplasmin; neg HEP a,B,Y14xqexhno Oswestry Disability Index: 48% ( severe disability ) on 04/15/16; updated [place] Back Pain Scale:44 on 04/15/16; updated [place]: 7 on 04/15/1616Initial Oswestry Disability Index: 48% ( severe disability ) on 11/24/14; initial [place] Back Pain Scale: 48 on 11/24/14; initial [place]: 5 on 11/24/1516egd . Bilateral common femoral artery endarterectomy. 3. Left common femoral artery patch angioplasty with PTFE. 4. 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 CURRENT THERAPY: Tamoxifen started in 11/17/14, prior anastrozole 11/2012- 09/2014, zoledronic acid, received 02/2015 and 08/2015.51exqfl62Nytykozewmydan Summary Successful drug eluting stenting of the proximal LAD coronary artery with a 3.5X15 mm plus 3.0X8 mm Xience Alpine stents as described above. The second stent was needed to cover distal edge of th efirst stent in an overlapping fashion. 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
--- OUTSIDE RECORDS SUMMARY | 2022-06-11 12:48 | XMS_ITS | Continuity of Care Document ---
:1945 Author Organization [facility] Address [address] [place] [address]- Care Team Providers Name Role Phone Chino Vasquez MD Primary Care Physician Encounter [facility] Date(s): 05/16/20 - 05/23/20 [facility] [address] [place] [address]- [facility] Encounter Diagnosis Cervical Spondylosis without Myelopathy MRI 2010 (Discharge Diagnosis) - 05/16/20 Chronic Pain Syndrome (Discharge Diagnosis) - 05/16/20 Chronic prescription opiate use (Discharge Diagnosis) - 05/16/20 Depression, major (Discharge Diagnosis) - 05/16/20 Graves' disease opthalmopathy (Discharge Diagnosis) - 05/16/20 Attending Physician: Chino Vasquez MD Allergies, Adverse Reactions, Alerts Substance Reaction Severity Status atorvastatin1 Active amLODIPine2 Active 2keyw2chgfh Immunizations Given and Recorded Vaccine Date Status [...] 1Result Comment: [05/27/2017] [facility] [id number]/Late Reason: Wan to Standard Admin Jmrhj0Clzpz Note: #24Admin Note: historical data Medications Aspirin = 81 mg, By Mouth, Daily, 0 Refills, Maintenance Start Date: 12/26/11 Status: OrderedBevespi Aerosphere 9 mcg-4.8 mcg/inh inhalation aerosol 2 puffs, Inhalation, 2 times a day, 4 by 28 doses, # 5.9 Gm, 11 Refills, Maintenance, 04/25/20 11:19:00 EDT, [facility], 2 puffs Inhalation [...] 5 Refills, Maintenance, 02/18/20 16:43:00 EDT, Aerosol, [facility], 149.9, cm, 02/14/20 11:11:00 EDT, Height, 68.9, kg, 07/12/19 14:56:00 EST, DryWeight Start Date: 02/18/20 Status: OrderedFLUoxetine 40 mg oral capsule 1 capsule = 40 mg, By Mouth, Daily, # 30 capsule, 5 Refills, Maintenance, 02/14/20 14:03:00 EDT, Capsule, [facility], 149.9, cm, 02/14/20 11:11:00 EDT, Height, 68.9, kg, 07/12/19 14:56:00 EST,Dry Weight Start Date: 02/14/20 Status: Orderedfurosemide 20 mg oral tablet 20 mg, 1, tablet, By Mouth, Daily, # 30 tablet, Refills 2, Tot. Refills 2, Maintenance, 04/10/20 16:58:00 EDT, Route to Pharmacy Electronically, [facility], 149.9, cm, 02/14/20 [...] 0 Refills, Maintenance, 05/16/20 20:15:00 EDT, Tablet, [facility] # [facility], partial fill upon request, 05/23/20, 149.9, cm, 05/16/20 14:42:00 EDT,Height, 68.9, kg, 07/12/19 14:56:00 EST, Dry Weight Start Date: 05/16/20 Stop Date: 06/13/20 Status: Orderedlevothyroxine 125 mcg (0.125 mg) oral tablet 1 tablet = 125 mcg, By Mouth, Daily, # 30 tablet, 5 Refills, Maintenance, 04/17/20 13:45:00 EDT, Tablet, [facility], 149.9, cm, 02/14/20 11:11:00 EDT, Height, 68.9, kg, 07/12/19 14:56:00 EST, Dry Weight Start Date: 04/17/20 Status: Orderedmetoprolol 25 mg oral tablet 25 mg, 1, tablet, By Mouth, 2 times a day, # 60 tablet, Refills 5, Tot. Refills 5, Maintenance, 02/14/20 14:03:00 EDT, Route to Pharmacy Electronically, [facility], 149.9, cm, 02/14/20 11:11:00 EDT, Height, 68.9, kg, 07/12/19 14:56:00 EST, . Start Date: 02/14/20 Status: Orderedpravastatin 20 mg oral tablet 20 mg, 1, tablet, By Mouth, Daily, # 30 tablet, Refills 5, Tot. Refills 5, Maintenance, 11/02/19 10:04:00 EDT, Route to Pharmacy Electronically, [facility], 149.9, cm, 10/14/19 14:23:00 EDT, Height, 68.9, kg, 07/12/19 14:56:00 EST, Dry Weight Start Date: 11/02/19 Status: OrderedPriLOSEC OTC 20 mg oral delayed release tablet 1 tablet = 20 mg, By Mouth, Daily, # 90 tablet, 0 Refills, Maintenance, 05/09/20 9:35:00 EDT, CR Tablet, [facility], 149.9, cm, 02/14/20 11:11:00 EDT, Height, 68.9, kg, 07/12/19 14:56:00 EST, Dry Weight Start Date: 05/09/20 Status: OrderedVentolin HFA 108 mcg/inh inhalation aerosol with adapter 2 puffs, Inhalation, 4 times a day, PRN for wheezing, # 1 each, 5 Refills, Maintenance, 04/25/20 11:09:00 EDT, Aerosol, [facility] # [facility], 149.9, cm, 02/14/20 [...] Active use(Confirmed) Vitamin D Deficiency(Confirmed) Active 1per gastroenterology;ctzfzfw1Phoxzdmg to gastroenterology no-show for ehxnbiralrs3xot5 40%4chronic tborbhqrjc0LHNQ:2 low ijsix1WJAG test done,[employer] rrjntno0hkkqmz repeat sdx; injections,fentanyl,morphine,oxycodone er8Dr Oh no surgery re neck,tsml7jxm Dr King,yesterday NO SURGERY, rx corsett,pool10 evaluated by two neurosurgeons,pain eujhjnlx55odvgm ee54Soyvtw 24-hour urine pwagolic29VIMV increased alpha2 lazbvfjtr43nktxce iron,ferrritin,cderloplasmin; neg HEP a,B,O40ebehogp Oswestry Disability Index: 48% ( severe disability ) on 04/15/16; updated [place] Back Pain Scale:44 on 04/15/16; updated [place]: 7 on 04/15/1616Initial Oswestry Disability Index: 48% ( severe disability ) on 11/24/14; initial [place] Back Pain Scale: 48 on 11/24/14; initial [place]: 5 on 11/24/1516egd . Bilateral common femoral artery endarterectomy. 3. Left common femoral artery patch angioplasty with PTFE. 4. 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 CURRENT THERAPY: Tamoxifen started in 11/17/14, prior anastrozole 11/2012- 09/2014, zoledronic acid, received 02/2015 and 08/2015.41pgjzs80Ljdjjwciuaorla Summary Successful drug eluting stenting of the proximal LAD coronary artery with a 3.5X15 mm plus 3.0X8 mm Xience Alpine stents as described above. The second stent was needed to cover distal edge of th efirst stent in an overlapping fashion. The stents were post-dilated using a 3.5 mm non-compliant balloon.25 now hyperthyroid,exopthalmous;Dr MurphyCzsusa51dujbqka pre diabetes increased risk eluasrgx18ewpiko76xh stable;recheck 12 vgvfxc25uiked lung nodules on neck CT recheck 6 cycacr55PYC6q fii71XOd5 four low igynz84lofd normal,b12 low ojxyar[address] flu87avmenlg D deficiency;correcting Diagnosis Diagnosis Type Effective Dates Health Clinical Infor mant Status Service Cervical Discharge 05/16/20 Spondylosis without Diagnosis Myelopathy MRI 2009 Chronic Pain Discharge 05/16/20 Syndrome Diagnosis Chronic Discharge 05/16/20 prescription opiate Diagnosis use Depression, major Discharge 05/16/20 Diagnosis Graves' disease Discharge 05/16/20 opthalmopathy Diagnosis Vital Signs Most recent to oldest [Reference Range]: 1 Height 149.9 cm (05/16/20 2:42 PM) Weight 71.9 kg (05/16/20 2:42 PM) Oxygen Saturation [94-100 %] 97 % (05/16/20 2:42 PM) Pulse Rate [55-90 bpm] 68 bpm (05/16/20 2:42 PM) Body Mass Index [18.5-24.99] 32 *>HHI* (05/16/20 2:42 PM) Blood Pressure [90-138/55-84 mm Hg] 130/62 mm Hg (05/16/20 2:42 PM) Respiratory Rate [16-30 br/min] 16 br/min (05/16/20 2:42 PM) Temperature [96.8-100.4 DegF] 99.3 DegF (05/16/20 2:42 PM) Blood pressure sites Arm, left (05/16/20 2:42 PM) Temperature Route Oral (05/16/20 2:42 PM) Social History Social History Type Response 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
--- OUTSIDE RECORDS SUMMARY | 2022-06-11 12:48 | XMS_ITS | Continuity of Care Document ---
:1945 Author Organization [facility] Address [address] [place] [address]- Care Team Providers Name Role Phone Chino Vasquez MD Primary Care Physician [place] [facility] [place]): [place] 05/09/22 [facility] [address] [place] [id number] Attending Physician: Maxi Foster MD Admitting Physician: Maxi Foster MD Referring Physician: Chino Vasquez MD Allergies, Adverse Reactions, Alerts Substance Reaction Severity Status spironolactone1 Active lisinopril2 Active atorvastatin3 Active thiazide diuretics4 Active amLODIPine5 Active 3wppdw9pveykzc uzmkepgn5jgrn1clszayhhylkg4gqnoq Immunizations Given and Recorded Vaccine Date Status [...] Not Given P atient Refuses 1Result Comment: [facility]: [id number] Comment: [05/27/2017] [facility] [phone] 3Early/Late Reason: Wan to Standard Admin [id number] Comment: [facility]: [id number] Comment: [facility]: [id number] Note: #27Admin Note: historical data Medications aspirin [...] 01/14/22 21:32:00 EDT, [facility] Mouth, Daily, # 30 capsule, 5 Refills, [facility], 149, cm, 02/06/22 9:42:00 EDT, Height, 68.5, kg, 11/19/21 15:42:00 EDT, Dry Weight Start Date: 02/11/22 Status: Orderedfurosemide 20 mg oral tablet 20 mg, 1, tablet, By Mouth, Daily, # 90 tablet, Refills 0, Tot. Refills 0, Maintenance, 02/21/22 12:19:00 EDT, Route to Pharmacy Electronically, [facility] [...] 0 Refills, Maintenance, 03/26/22 17:12:00 EDT, Tablet, [facility] # [facility], partial [...] tablet, 5 Refills, Maintenance, 04/08/22 12:28:00 EDT, [facility] # 50, 149, cm, 03/21/22 8:09:00 EDT, Height, 74.4, kg, 02/12/22 14:46:00EDT, Dry Weight Start Date: 04/08/22 Status: Orderedpantoprazole 20 mg oral delayed release tablet 1 tablet, By Mouth, Daily, # 90 tablet, 0 Refills, 01/14/22 21:32:00 EDT, 149, cm, 01/09/22 13:12:00EDT, Height, 68.5, kg, 04/25/22 15:42:00 EDT, Dry Weight Start Date: 01/14/22 [...] 12/27/20 9:18:00 EDT, Route to Pharmacy Electronically, [facility], Partial fill upon [...] Confirmed Active Limitation due to Confirmed Active qmwngqrgig92, 16 Opiate use Confirmed Active Gastro-esophageal Confirmed Active reflux EGD [id number] Graves' disease Confirmed Active H/O fracture of wrist Confirmed 12/03/21 Active rt History of peripheral Confirmed 05/17/16 Active artery H/O compression Confirmed Active fracture of sacrum 2014 History of alcohol Confirmed Active abuse20, 21 H/O nausea Confirmed Active History of ischemic Confirmed 12/21/20 Active colitis History of breast Confirmed Active cancer Left, IDC, pT1c pN0, ER/[place] positive, Her-2/angelito negative, 20120829, 23 History of (NSTEMI) Confirmed 11/10/15 Active 2015 DES24 S/P drug eluting Confirmed Active coronary stent placement Hyperkalemia Confirmed 03/08/19 Active Hyponatremia Confirmed Active Hypothyroidism Confirmed Active following radioiodine mqfvdnu54 Impaired Fasting Confirmed 06/03/07 Active Eyyiovt97 Anemia, iron Confirmed Active deficiency neg colo 2018.neg egd 2020 per gi (greef) no addtl workuyp Low back pain Confirmed Active Failed back syndrome, Confirmed Active lumbar Lung nodules remote Confirmed Active asdyoz87, 28, 29 Lymphedema of both Confirmed Active lower extremities Depression, major30, Confirmed Active 31 Fx metatarsal rt Confirmed 04/27/19 Active second Nocturia Confirmed 10/18/21 Active Normocytic Confirmed Active normochromic vjibbh34, 33 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 Utbfgetcod07 Confirmed Active PAD (peripheral Confirmed Active artery disease)stenting 2015 Chronic prescription Confirmed Active opiate use Multiple falls REFER Confirmed 10/18/21 Active PT Sep 2021 Frequent PVCs brefer Confirmed 10/18/21 Active holter Vitamin D Deficiency Confirmed Active 1per gastroenterology;lodshjx4Yddoueed to gastroenterology no-show for ucmqmwfkesl9dkl4 40%4chronic uymjxdpqah0NITW:2 low wscpl2KNZR 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,[employer]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 phgmfoe4irdoix repeat sdx; injections,fentanyl,morphine,oxycodone er8Dr Oh no surgery re neck,mvcq2ecs Dr King,yesterday NO SURGERY, rx corsett,pool10 evaluated by two neurosurgeons,pain qhgkbvfg56elbww lb14Esstan 24-hour urine wlnrhvxu47VLXR increased alpha2 aeexwvuxs27ngugmp iron,ferrritin,cderloplasmin; neg HEP a,B,W47geuaran Oswestry Disability Index: 48% ( severe disability ) on 04/15/16; updated [place] Back Pain Scale:44 on 04/15/16; updated [place]: 7 on 04/15/1616Initial [place] Disability Index: 48% ( severe disability ) on 11/24/14; initial [place] Back Pain Scale: 48 on 11/24/14; initial [place]: 5 on 11/24/1516egd . Bilateral common femoral artery endarterectomy. 3. Left common femoral artery patch angioplasty with PTFE. 4. 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 CURRENT THERAPY: Tamoxifen started in 11/17/14, prior anastrozole 11/2012- 09/2014, zoledronic acid, received 02/2015 and 08/2015.34djjcc90Fzfwpomplsohdr Summary Successful drug eluting stenting of the proximal LAD coronary artery with a 3.5X15 mm plus 3.0X8 mm Xience Alpine stents as described above. The second stent was needed to cover distal edge of th efirst stent in an overlapping fashion. 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
--- OUTSIDE RECORDS SUMMARY | 2022-06-11 12:49 | XMS_ITS | Continuity of Care Document ---
:1945 Author Organization [facility] Address [address] [place] [address]- Care Team Providers Name Role Phone Christina BAZAN, Chino Dao Primary Care Physician Encounter [facility] Date(s): 07/03/20 - 08/02/20 [facility] [address] [place] [address]- Allergies, Adverse Reactions, Alerts Substance Reaction Severity Status atorvastatin1 Active amLODIPine2 Active 2gjag5kbnsh Immunizations Given and Recorded Vaccine Date Status [...] 1Result Comment: [05/27/2017] [facility] [id number]/Late Reason: Wan to Standard Admin [id number] Note: #24Admin Note: historical data Medications Aspirin = 81 mg, By Mouth, Daily, 0 Refills, Maintenance Start Date: 12/26/11 Status: OrderedBevespi Aerosphere 9 mcg-4.8 mcg/inh inhalation aerosol 2 puffs, Inhalation, 2 times a day, 4 by 28 doses, # 5.9 Gm, 11 Refills, Maintenance, 04/25/20 11:19:00 EDT, [facility] # [facility], 2 puffs [...] 5 Refills, Maintenance, 02/18/20 16:43:00 EDT, Aerosol, [facility] # 50, 149.9, cm, 02/14/20 11:11:00 EDT, Height, 68.9, kg, 07/12/19 14:56:00 EST, DryWeight Start Date: 02/18/20 Status: OrderedFLUoxetine 40 mg oral capsule 1 capsule = 40 mg, By Mouth, Daily, # 30 capsule, 5 Refills, Maintenance, 02/14/20 14:03:00 EDT, Capsule, [facility] # 50, 149.9, cm, 02/14/20 11:11:00 EDT, Height, 68.9, kg, 07/12/19 14:56:00 EST,Dry Weight Start Date: 02/14/20 Status: Orderedfurosemide 20 mg oral tablet 20 mg, 1, tablet, By Mouth, Daily, # 30 tablet, Refills 2, Tot. Refills 2, Maintenance, 07/03/20 12:15:00 EST, Route to Pharmacy Electronically, [facility] # 50, 149.9, [...] tablet, 0 Refills, Maintenance, 07/11/20 8:01:00 EST,Tablet, [facility] # 50, partial fill upon request, 07/18/20, 149.9, cm, 06/07/20 11:48:00 EST, Height, 68.9, kg, 07/12/19 14:56:00 EST, Dry Weight Start Date: 07/11/20 Stop Date: 08/08/20 Status: Orderedlevothyroxine 125 mcg (0.125 mg) oral tablet 1 tablet = 125 mcg, By Mouth, Daily, # 30 tablet, 5 Refills, Maintenance, 04/17/20 13:45:00 EDT, Tablet, [facility] # 50, 149.9, cm, 02/14/20 11:11:00 EDT, Height, 68.9, kg, 07/12/19 14:56:00 EST, Dry Weight Start Date: 04/17/20 Status: Orderedmetoprolol 25 mg oral tablet 25 mg, 1, tablet, By Mouth, 2 times a day, # 60 tablet, Refills 5, Tot. Refills 5, Maintenance, 02/14/20 14:03:00 EDT, Route to Pharmacy Electronically, [facility] # 50, 149.9, cm, 02/14/20 11:11:00 EDT, Height, 68.9, kg, 07/12/19 14:56:00 EST, . Start Date: 02/14/20 Status: Orderedpravastatin 20 mg oral tablet 20 mg, 1, tablet, By Mouth, Daily, # 30 tablet, Refills 5, Tot. Refills 5, Maintenance, 11/02/19 10:04:00 EDT, Route to Pharmacy Electronically, [facility] # 50, 149.9, cm, 10/14/19 14:23:00 EDT, Height, 68.9, kg, 07/12/19 14:56:00 EST, Dry Weight Start Date: 11/02/19 Status: OrderedPriLOSEC OTC 20 mg oral delayed release tablet 1 tablet = 20 mg, By Mouth, Daily, # 90 tablet, 0 Refills, Maintenance, 05/09/20 9:35:00 EDT, CR Tablet, [facility] # 50, 149.9, cm, 02/14/20 11:11:00 EDT, Height, 68.9, kg, 07/12/19 14:56:00 EST, Dry Weight Start Date: 05/09/20 Status: OrderedVentolin HFA 108 mcg/inh inhalation aerosol with adapter 2 puffs, Inhalation, 4 times a day, PRN for wheezing, # 1 each, 5 Refills, Maintenance, 04/25/20 11:09:00 EDT, Aerosol, [facility] # 50, 149.9, [...] Active use(Confirmed) Vitamin D Deficiency(Confirmed) Active 1per gastroenterology;netwfeb7Axmkibgv to gastroenterology no-show for joettcwskot7cgr7 40%4chronic gmbfmybgwl6OMYL:2 low ubueg3VUED 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,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 zfufdop8oromyz repeat sdx; injections,fentanyl,morphine,oxycodone er8Dr Oh no surgery re neck,qkaq6krm Dr King,yesterday NO SURGERY, rx corsett,pool10 evaluated by two neurosurgeons,pain pxdkgzfz57ijfnf vw82Nvtgvk 24-hour urine jiivnstd33LUWG increased alpha2 fkhsujqpa23fchhov iron,ferrritin,cderloplasmin; neg HEP a,B,R38rwpeaoz Oswestry Disability Index: 48% ( severe disability ) on 04/15/16; updated [place] Back Pain Scale:44 on 04/15/16; updated [place]: 7 on 04/15/1616Initial Oswestry Disability Index: 48% ( severe disability ) on 11/24/14; initial [place] Back Pain Scale: 48 on 11/24/14; initial [place]: 5 on 11/24/1516egd . Bilateral common femoral artery endarterectomy. 3. Left common femoral artery patch angioplasty with PTFE. 4. 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 CURRENT THERAPY: Tamoxifen started in 11/17/14, prior anastrozole 11/2012- 09/2014, zoledronic acid, received 02/2015 and 08/2015.42lrvko71Tcpkegxhbmeswg Summary Successful drug eluting stenting of the proximal LAD coronary artery with a 3.5X15 mm plus 3.0X8 mm Xience Alpine stents as described above. The second stent was needed to cover distal edge of th efirst stent in an overlapping fashion. 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
--- OUTSIDE RECORDS SUMMARY | 2022-06-11 12:49 | XMS_ITS | Continuity of Care Document ---
:1945 Author Organization [facility] Address [address] [place] [address]- Care Team Providers Name Role Phone Christina BAZAN, Chino Dao Primary Care Physician [facility]counter [facility] Date(s): 11/02/21 - 12/02/21 [facility] [address] [place] [address]- Allergies, Adverse Reactions, Alerts Substance Reaction Severity Status spironolactone1 Active lisinopril2 Active atorvastatin3 Active thiazide diuretics4 Active amLODIPine5 Active 6vdkdh0zjkhbhj pgtokjef3wyqp1vmwxtkhfezmc4obppm Immunizations Given and Recorded Vaccine Date Status [...] Not Given P atient Refuses 1Result Comment: [facility]: [id number] Comment: [facility]: [id number] Comment: [facility]: [id number] Comment: [05/27/2017] [facility] [phone] Early/Late Reason: Wan to Standard Admin Gesqm1Pwglf Note: #27Admin Note: historical data Medications aspirin [...] tablet, Refills 0, Route to Pharmacy Electronically, [facility] # 50, 149, cm, 10/16/21 14:48:00 EDT, Height, 68.9, kg, 12/21/20 8:52:00 EDT, Dry Weight Start Date: 10/17/21 Status: OrderedcloNIDine 0.1 mg oral tablet See Instructions, TAKE ONE TABLET BY MOUTH TWICE A DAY, # 60 tablet, Refills 5, Instructions ReplaceRequired Details, Route to Pharmacy Electronically, [facility] # [facility], 149, cm, 10/18/21 [...] 30 tablet, 5 Refills, 11/12/21 9:33:00 EDT, [facility] # 50, 149, cm, 10/18/21 12:13:00 EDT, Height, 68.9, kg, 12/21/20 8:52:00 EDT, Dry Weight Start Date: 11/12/21 Status: OrderedFLUoxetine 40 mg oral capsule See Instructions, TAKE 1 CAPSULE BY MOUTH DAILY., # 30 capsule, 5 Refills, 08/15/21 13:23:00 EST, [facility] # 50, 149, cm, 08/15/21 11:10:00 EST, Height, 68.9, kg, 12/21/20 8:52:00 EDT, Dry Weight Start Date: 08/15/21 Status: Orderedhydrocortisone 2.5% topical cream 1 application, Topically, 3 times a day, # 30 Gm, 1 Refills, Maintenance, 01/09/21 12:15:00 EDT, Cream, [facility] # 50, 1 application Topically 3 times a day, 149.9, cm, 01/09/21 12:01:00 EDT, Height, 68.9, kg, 12/21/20 8:52:00 EDT, Dry Weight Start Date: 01/09/21 Status: OrderedHYDROmorphone 4 mg oral tablet 1 tablet = 4 mg, By Mouth, Every 8 hours, # 84 tablet, 0 Refills, Maintenance, 11/06/21 9:15:00 EDT,Tablet, [facility] # 50, partial [...] # 30 tablet, 5 Refills, 10/11/21 14:05:00 EDT,[facility] # 50, 149, cm, 08/15/21 [...] 11 Refills, Maintenance, 08/15/21 13:23:00 EST, Capsule, [facility] # [...] 12/27/20 9:18:00 EDT, Route to Pharmacy Electronically, [facility], Partial fill upon patient request if the prescription... 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,[employer]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 ctxyixb2fsyvhh repeat sdx; injections,fentanyl,morphine,oxycodone er8Dr Oh no surgery re neck,nayu1odo Dr King,yesterday NO SURGERY, rx corsett,pool10 evaluated by two neurosurgeons,pain ybjilkcz13qhphl dl16Brynir 24-hour urine oxeeflir91ODSG increased alpha2 kpukoqogg46scwvrm iron,ferrritin,cderloplasmin; neg HEP a,B,I10echouwe Oswestry Disability Index: 48% ( severe disability ) on 04/15/16; updated [place] Back Pain Scale:44 on 04/15/16; updated [place]: 7 on 04/15/1616Initial Oswestry Disability Index: 48% ( severe disability ) on 11/24/14; initial [place] Back Pain Scale: 48 on 11/24/14; initial [place]: 5 on 11/24/1516egd . Bilateral common femoral artery endarterectomy. 3. Left common femoral artery patch angioplasty with PTFE. 4. 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 CURRENT THERAPY: Tamoxifen started in 11/17/14, prior anastrozole 11/2012- 09/2014, zoledronic acid, received 02/2015 and 08/2015.51yzpyv85Vhasfthyszjwzc Summary Successful drug eluting stenting of the proximal LAD coronary artery with a 3.5X15 mm plus 3.0X8 mm Xience Alpine stents as described above. The second stent was needed to cover distal edge of th efirst stent in an overlapping fashion. 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
--- OUTSIDE RECORDS SUMMARY | 2022-06-11 12:49 | XMS_ITS | Continuity of Care Document ---
:1945 Author Organization [facility] Address [address] [place] [address]- Care Team Providers Name Role Phone Christina BAZAN, Chino Dao Primary Care Physician [facility] Date[facility]s): 08/15/21 - 09/14/21 [facility] [address] [place] [address]- Allergies, Adverse Reactions, Alerts Substance Reaction Severity Status spironolactone1 Active lisinopril2 Active atorvastatin3 Active thiazide diuretics4 Active amLODIPine5 Active 6irpcx9brvfvwb bobjbluq9jhto5hzztjbzzvqsa1kzmpk Immunizations Given and Recorded Vaccine Date Status [...] Given P atient Refuses 1Result Comment: [facility][NOTE 3]: [id number] Comment: [facility][NOTE 3]: [id number] Comment: [05/27/2017] [facility]NOTE 3] [id number]/Late Reason: Wan to Standard Admin [id number] Note: #26Admin Note: historical data Medications aspirin [...] EDT, Route to Pharmacy Electronically, [facility] 3, Partial [...] breast cancer Left, IDC, Active pT1c pN0, ER/[place] positive, Her-2/angelito negative, 2012(Confirmed)22, 23 History of [...] Active use(Confirmed) Vitamin D Deficiency(Confirmed) Active 1per gastroenterology;qcdqshy3Qxeymczq to gastroenterology no-show for tzljbuppbkn7ixx5 40%4chronic bvjkphgbnu0XCFH:2 low dshvx4XKTL 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,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 flrjbld8sgckpk repeat sdx; injections,fentanyl,morphine,oxycodone er8Dr Oh no surgery re neck,dlrl9npz Dr King,yesterday NO SURGERY, rx corsett,pool10 evaluated by two neurosurgeons,pain phpoxnoa80iskbp vw94Awdtmy 24-hour urine bsfsxvhy83LRHN increased alpha2 tdmyavrsz65ybtrua iron,ferrritin,cderloplasmin; neg HEP a,B,T40azwvozf Oswestry Disability Index: 48% ( severe disability ) on 04/15/16; updated [place] Back Pain Scale:44 on 04/15/16; updated [place]: 7 on 04/15/1616Initial Oswestry Disability Index: 48% ( severe disability ) on 11/24/14; initial [place] Back Pain Scale: 48 on 11/24/14; initial [place]: 5 on 11/24/1516egd . Bilateral common femoral artery endarterectomy. 3. Left common femoral artery patch angioplasty with PTFE. 4. 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 CURRENT THERAPY: Tamoxifen started in 11/17/14, prior anastrozole 11/2012- 09/2014, zoledronic acid, received 02/2015 and 08/2015.30qiopb69Hkwhpjwyjtvvsh Summary Successful drug eluting stenting of the proximal LAD coronary artery with a 3.5X15 mm plus 3.0X8 mm Xience Alpine stents as described above. The second stent was needed to cover distal edge of th efirst stent in an overlapping fashion. 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
--- OUTSIDE RECORDS SUMMARY | 2022-06-11 12:49 | XMS_ITS | Continuity of Care Document ---
:1945 Author Organization [facility] Address [address] [place] [address]- Care Team Providers Name Role Phone Christina BAZAN, Chino Dao Primary Care Physician Encounter [facility] Date(s): 11/14/21 - 11/21/21 [facility] [address] [place] [address]- Encounter Diagnosis Pelvic pressure in female (Discharge Diagnosis) - 11/14/21 Abrasion of right forearm (Discharge Diagnosis) - 11/14/21 Fall (Discharge Diagnosis) - 11/14/21 Attending Physician: Not on Staff, Attending MD Referring Physician: Chino Vasquez MD Allergies, Adverse Reactions, Alerts Substance Reaction Severity Status spironolactone1 Active lisinopril2 Active atorvastatin3 Active thiazide diuretics4 Active amLODIPine5 Active 6dwvij1rmmubjj ewtyzeiu2oump4oukgebhkpbgd2fktbt Immunizations Given and Recorded Vaccine Date Status [...] Given P atient Refuses 1Result Comment: [facility]: [id number] Comment: [facility]: [id number] Comment: [facility]: [phone] Comment: [05/27/2017] [facility] [phone] Early/Late Reason: Wan to Standard Admin [id number] Note: #27Admin Note: historical data Medications aspirin [...] Refills 0, Route to Pharmacy Electronically, [facility] # 50, 149, cm, 10/16/21 14:48:00 EDT, Height, 68.9, kg, 12/21/20 8:52:00 EDT, Dry Weight Start Date: 10/17/21 Status: OrderedcloNIDine 0.1 mg oral tablet See Instructions, TAKE ONE TABLET BY MOUTH TWICE A DAY, # 60 tablet, Refills 5, Instructions ReplaceRequired Details, Route to Pharmacy Electronically, [facility] # 50, 149, cm, [...] 30 tablet, 5 Refills, 11/12/21 9:33:00 EDT, [facility] # 50, 149, cm, 10/18/21 12:13:00 EDT, Height, 68.9, kg, 12/21/20 8:52:00 EDT, Dry Weight Start Date: 11/12/21 Status: OrderedFLUoxetine 40 mg oral capsule See Instructions, TAKE 1 CAPSULE BY MOUTH DAILY., # 30 capsule, 5 Refills, 08/15/21 13:23:00 EST, [facility] # 50, 149, cm, 08/15/21 11:10:00 EST, Height, 68.9, kg, 12/21/20 8:52:00 EDT, Dry Weight Start Date: 08/15/21 Status: Orderedhydrocortisone 2.5% topical cream 1 application, Topically, 3 times a day, # 30 Gm, 1 Refills, Maintenance, 01/09/21 12:15:00 EDT, Cream, [facility] # 50, 1 application Topically 3 times a day, 149.9, cm, 01/09/21 12:01:00 EDT, Height, 68.9, kg, 12/21/20 8:52:00 EDT, Dry Weight Start Date: 01/09/21 Status: OrderedHYDROmorphone 4 mg oral tablet 1 tablet = 4 mg, By Mouth, Every 8 hours, # 84 tablet, 0 Refills, Maintenance, 11/06/21 9:15:00 EDT,Tablet, [facility] # 50, [...] # 30 tablet, 5 Refills, 10/11/21 14:05:00 EDT,[facility] # [facility], 149, cm, [...] 08/15/21 13:23:00 EST, Capsule, [facility] # [facility], Partial [...] 12/27/20 9:18:00 EDT, Route to Pharmacy Electronically, [facility], Partial fill upon patient request if the prescription... 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,[employer]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 ycqzbxz5jswivb repeat sdx; injections,fentanyl,morphine,oxycodone er8Dr Oh no surgery re neck,chie0zcs Dr King,yesterday NO SURGERY, rx corsett,pool10 evaluated by two neurosurgeons,pain gxspvlvx25ivfor hv86Ckpnxv 24-hour urine yneonuki17QCMT increased alpha2 wgslernvu71sjillc iron,ferrritin,cderloplasmin; neg HEP a,B,K78ccygfey Oswestry Disability Index: 48% ( severe disability ) on 04/15/16; updated [place] Back Pain Scale:44 on 04/15/16; updated [place]: 7 on 04/15/1616Initial [place] Disability Index: 48% ( severe disability ) on 11/24/14; initial [place] Back Pain Scale: 48 on 11/24/14; initial [place]: 5 on 11/24/1516egd . Bilateral common femoral artery endarterectomy. 3. Left common femoral artery patch angioplasty with PTFE. 4. 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 CURRENT THERAPY: Tamoxifen started in 11/17/14, prior anastrozole 11/2012- 09/2014, zoledronic acid, received 02/2015 and 08/2015.23inuew50Lnzvxhathpjtdq Summary Successful drug eluting stenting of the proximal LAD coronary artery with a 3.5X15 mm plus 3.0X8 mm Xience Alpine stents as described above. The second stent was needed to cover distal edge of th efirst stent in an overlapping fashion. The stents were post-dilated using a 3.5 mm non-compliant balloon.25 now hyperthyroid,exopthalmous;Dr MurphyFgeudi46dlpzhrv pre diabetes increased risk eflxvaif34dnbajm11eg stable;recheck 12 npthkt13apkgr lung nodules on neck CT recheck 6 bmirgv66PYU4g fkw52MGk1 four low kuhvw35tuue normal,b12 low ajckey08 fit terst wbu78yiggvmp D deficiency;correcting Diagnosis Diagnosis Type Effective Dates Health Status Clinical In formant Service Pelvic pressure Discharge 11/14/21 in female Diagnosis Abrasion of Discharge 11/14/21 right forearm Diagnosis Fall Discharge 11/14/21 Diagnosis Vital Signs Most recent to oldest [Reference Range]: 1 2 Height 149 cm 149 cm (11/14/21 8:08 AM) (11/14/21 7:44 AM) Oxygen Saturation [94-100 %] 95 % (11/14/21 7:44 AM) Pulse Rate [55-90 bpm] 70 bpm (11/14/21 7:44 AM) Blood Pressure [90-138/55-84 mm Hg] 150/72 mm Hg 148/ 84 mm Hg *H* *H* (11/14/21 8:08 AM) (11/14/21 7:44 AM) Respiratory Rate [16-30 br/min] 14 br/min *L* (11/14/21 7:44 AM) Temperature [96.8-100.4 DegF] 98.2 DegF (11/14/21 7:44 AM) Mode of Delivery (Oxygen) Room air (11/14/21 7:44 AM) Blood pressure sites Arm, right Arm, right (11/14/21 8:08 AM) (11/14/21 7:44 AM) Temperature Route Oral (11/14/21 7:44 AM) Social History Social History Type Response 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
--- OUTSIDE RECORDS SUMMARY | 2022-06-11 12:49 | XMS_ITS | Continuity of Care Document ---
:1945 Author Organization [facility] Address [address] [place] [address]- Care Team Providers Name Role Phone Christina BAZAN, Chino Dao Primary Care Physician Encounter [facility] Date(s): 02/04/20 - 03/05/20 [facility] [address] [place] [address]- [facility] Allergies, Adverse Reactions, Alerts Substance Reaction Severity Status atorvastatin1 Active amLODIPine2 Active 5evnl5lhfcf Immunizations Given and Recorded Vaccine Date Status [...] toxoids (Td) 12/01/06 Given Pneumococcal Vaccine (oldterm)4 11/7/98 Given Not Given Vaccine Date Status Refusal Reason pneumococcal 23-valent vaccine 08/13/14 Not Given P atient Refuses 1Result Comment: [05/27/2017] [facility] [id number]/Late Reason: Wan to Standard Admin [id number] Note: #24Admin Note: historical data Medications Aspirin = 81 mg, By Mouth, Daily, 0 Refills, Maintenance Start Date: 12/26/11 Status: OrderedBevespi Aerosphere 9 mcg-4.8 mcg/inh inhalation aerosol 2 puffs, Inhalation, 2 times a day, 4 by 28 doses lot [id number] exp 05-14, # 1 Doses, 11 Refills, Maintenance, 02/12/19 10:52:38 EDT, 2 puffs Inhalation 2 times a day,Instr:4 by 28 doses; lot [id number] 05-14 Start Date: 02/12/19 Status: Orderedcalcium (as carbonate) 500 mg oral tablet, chewable 1 tablet = 500 mg, Chew, Daily, # 150 tablet, 0 Refills, Maintenance, 09/21/19 14:07:00 EST, Chew Tablet Start Date: 09/21/19 Status: OrderedFlovent HFA 110 mcg/inh inhalation aerosol 2 puffs, Inhalation, 2 times a day, # 1 each, 5 Refills, Maintenance, 02/18/20 16:43:00 EDT, Aerosol, [facility] # 50, 149.9, cm, 02/14/20 11:11:00 EDT, Height, 68.9, kg, 07/12/19 14:56:00 EST, DryWeight Start Date: 02/18/20 Status: OrderedFLUoxetine 40 mg oral capsule 1 capsule = 40 mg, By Mouth, Daily, # 30 capsule, 5 Refills, Maintenance, 02/14/20 14:03:00 EDT, Capsule, [facility] # 50, 149.9, cm, 02/14/20 11:11:00 EDT, Height, 68.9, kg, 07/12/19 14:56:00 EST,Dry Weight Start Date: 02/14/20 Status: Orderedfurosemide 20 mg oral tablet 20 mg, 1, tablet, By Mouth, Daily, # 30 tablet, Refills 1, Tot. Refills 1, Maintenance, 02/08/20 7:20:00 EDT, Route to Pharmacy Electronically, [facility] # 50, 149.9, cm, 02/03/20 14:20:00 [...] tablet, 0 Refills, Maintenance, 02/22/20 9:20:00 EDT,Tablet, [facility] # 50, partial fill upon request, 02/29/20, 149.9, cm, 02/14/20 11:11:00 EDT, Height, 68.9, kg, 07/12/19 14:56:00 EST, Dry Weight Start Date: 02/22/20 Stop Date: 03/21/20 Status: Orderedlevothyroxine 125 mcg (0.125 mg) oral tablet 1 tablet = 125 mcg, By Mouth, Daily, # 30 tablet, 5 Refills, Maintenance, 10/18/19 14:04:00 EDT, Tablet, [facility] # 50, 149.9, cm, 10/14/19 14:23:00 EDT, Height, 68.9, kg, 07/12/19 14:56:00 EST, Dry Weight Start Date: 10/18/19 Status: Orderedmetoprolol 25 mg oral tablet 25 mg, 1, tablet, By Mouth, 2 times a day, # 60 tablet, Refills 5, Tot. Refills 5, Maintenance, 02/14/20 14:03:00 EDT, Route to Pharmacy Electronically, [facility] # 50, 149.9, cm, 02/14/20 11:11:00 EDT, Height, 68.9, kg, 07/12/19 14:56:00 EST, . Start Date: 02/14/20 Status: Orderedpravastatin 20 mg oral tablet 20 mg, 1, tablet, By Mouth, Daily, # 30 tablet, Refills 5, Tot. Refills 5, Maintenance, 11/02/19 10:04:00 EDT, Route to Pharmacy Electronically, [facility] # 50, 149.9, cm, 10/14/19 14:23:00 EDT, Height, 68.9, kg, 07/12/19 14:56:00 EST, Dry Weight Start Date: 11/02/19 Status: OrderedPriLOSEC OTC 20 mg oral delayed release tablet 1 tablet = 20 mg, By Mouth, Daily, # 90 tablet, 0 Refills, Maintenance, 02/08/20 7:20:00 EDT, CR Tablet, [facility] # 50, 149.9, cm, 02/03/20 14:20:00 [...] Details, Route to Pharmacy Electronically, [facility] # 50, 149.9, cm, 10/14/19 14:23:00 EDT, Height, 68.9, kg, 1... Start Date: 10/15/19 Status: OrderedVentolin HFA 108 mcg/inh inhalation aerosol with adapter 2 puffs, Inhalation, 4 times a day, PRN for wheezing, # 1 each, 4 Refills, Maintenance, 11/16/19 13:50:00 EDT, Aerosol, 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 pnlspbx1gxbmas repeat sdx; injections,fentanyl,morphine,oxycodone er8Dr Oh no surgery re neck,apdo2doz Dr King,yesterday NO SURGERY, rx corsett,pool10 evaluated by two neurosurgeons,pain jbkhxlnc33yolxp cj33Ukfxoz 24-hour urine kgifgzav93GZQM increased alpha2 vrxdwggol84necntk iron,ferrritin,cderloplasmin; neg HEP a,B,C26uzvdlzj Oswestry Disability Index: 48% ( severe disability ) on 04/15/16; updated [place] Back Pain Scale:44 on 04/15/16; updated [place]: 7 on 04/15/1616Initial Oswestry Disability Index: 48% ( severe disability ) on 11/24/14; initial [place] Back Pain Scale: 48 on 11/24/14; initial [place]: 5 on 11/24/1516egd . Bilateral common femoral artery endarterectomy. 3. Left common femoral artery patch angioplasty with PTFE. 4. 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 CURRENT THERAPY: Tamoxifen started in 11/17/14, prior anastrozole 11/2012- 09/2014, zoledronic acid, received 02/2015 and 08/2015.71diaog53Jojlefimbsyloj Summary Successful drug eluting stenting of the proximal LAD coronary artery with a 3.5X15 mm plus 3.0X8 mm Xience Alpine stents as described above. The second stent was needed to cover distal edge of th efirst stent in an overlapping fashion. 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
--- OUTSIDE RECORDS SUMMARY | 2022-06-11 12:49 | XMS_ITS | Continuity of Care Document ---
:1945 Author Organization [facility] Address [address] [place] [address]- Care Team Providers Name Role Phone Christina BAZAN, Chino Dao Primary Care Physician [place] [facility] [place](s[place] 09/24/19 - 11/21/[address] [address]- [facility] Attending Physician: Rosy Alvares NP Admitting Physician: Rosy Alvares NP Referring Physician: Rosy Alvares NP Allergies, Adverse Reactions, Alerts Substance Reaction Severity Status atorvastatin1 Active amLODIPine2 Active 7wmrs8bsfsu Immunizations Given and Recorded Vaccine Date Status [...] P atient Refuses 1Result Comment: [05/27/2017] [facility] [id number]/Late Reason: Wan to Standard Admin [id number] Note: #24Admin Note: historical data Medications Aspirin = 81 mg, By Mouth, Daily, 0 Refills, Maintenance Start Date: 12/26/11 Status: OrderedBevespi Aerosphere 9 mcg-4.8 mcg/inh inhalation aerosol 2 puffs, Inhalation, 2 times a day, 4 by 28 doses lot [id number] 05-14, # 1 Doses, 11 Refills, Maintenance, 02/12/19 10:52:38 EDT, 2 puffs Inhalation 2 times a day,Instr:4 by 28 doses; lot [id number] 05-14 Start Date: 02/12/19 Status: Orderedcalcium (as [...] 10/15/19 9:40:00 EDT, Route to Pharmacy Electronically, [facility] # [facility], 149.9, cm, 10/14/19 14:23:00 [...] tablet, 0 Refills, Maintenance, 11/08/19 8:49:00 EDT,Tablet, [facility] # 50, partial fill upon request, 11/09/19, 149.9, cm, 10/14/19 14:23:00 EDT, Height, 68.9, kg, 07/12/19 14:56:00 EST, Dry Weight Start Date: 11/08/19 Stop Date: 12/06/19 Status: Orderedlevothyroxine 125 mcg (0.125 mg) oral tablet 1 tablet = 125 mcg, By Mouth, Daily, # 30 tablet, 5 Refills, Maintenance, 10/18/19 14:04:00 EDT, Tablet, [facility] # 50, 149.9, cm, 10/14/19 14:23:00 EDT, Height, 68.9, kg, 07/12/19 14:56:00 EST, Dry Weight Start Date: 10/18/19 Status: Orderedmetoprolol 25 mg oral tablet 25 mg, 1, tablet, By Mouth, 2 times a day, # 60 tablet, Refills 5, Tot. Refills 5, Maintenance, 08/16/19 11:35:00 EST, Route to Pharmacy Electronically, [facility] # 50, 149.9, cm, 07/19/19 9:45:00EST, Height, 68.9, kg, 07/12/19 14:56:00 EST, Dry... Start Date: 08/16/19 Status: OrderedPlavix 75 mg oral tablet 75 mg, 1, tablet, By Mouth, Daily in AM, # 30 tablet, Refills 5, Tot. Refills 5, Maintenance, 08/17/19 8:35:00 EST, Route to Pharmacy Electronically, [facility] # 50, 149.9, cm, 07/19/19 9:45:00 EST, Height, 68.9, kg, 07/12/19 14:56:00 EST, Dry We... Start Date: 08/17/19 Status: Orderedpravastatin 20 mg oral tablet 20 mg, 1, tablet, By Mouth, Daily, # 30 tablet, Refills 5, Tot. Refills 5, Maintenance, 11/02/19 10:04:00 EDT, Route to Pharmacy Electronically, [facility] # 50, 149.9, cm, 10/14/19 14:23:00 EDT, Height, 68.9, kg, 07/12/19 14:56:00 EST, Dry Weight Start Date: 11/02/19 Status: OrderedPriLOSEC OTC 20 mg oral delayed release tablet 1 tablet = 20 mg, By Mouth, Daily, # 90 tablet, 1 Refills, Maintenance, 08/17/19 10:42:00 EST, CR Tablet, [facility] # 50, 149.9, cm, 07/19/19 9:45:00 [...] Replace Required Details, Route to Pharmacy Electronically, [facility] # 50, 149.9, cm, 10/14/19 14:23:00 EDT, Height, 68.9, kg, 1... 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,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 waueprj4prinkv repeat sdx; injections,fentanyl,morphine,oxycodone er8Dr Oh no surgery re neck,zgbo8yyd Dr King,yesterday NO SURGERY, rx corsett,pool10 evaluated by two neurosurgeons,pain cplmhcyo41fyrui wh25Qaapoq 24-hour urine lsaubxbm36OBJJ increased alpha2 elwgldkeq33kqphwz iron,ferrritin,cderloplasmin; neg HEP a,B,E13ybmggdz Oswestry Disability Index: 48% ( severe disability ) on 04/15/16; updated [place] Back Pain Scale:44 on 04/15/16; updated [place]: 7 on 6Initial Oswestry Disability Index: 48% ( severe disability ) on 11/24/14; initial [place] Back Pain Scale: 48 on 11/24/14; initial [place]: 5 on 7egd . Bilateral common femoral artery endarterectomy. 3. Left common femoral artery patch angioplasty with PTFE. 4. 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 CURRENT THERAPY: Tamoxifen started in 11/17/14, prior anastrozole 11/2012- 09/2014, zoledronic acid, received 02/2015 and 08/2015.76xeaud05Yuvavbccdsggkp Summary Successful drug eluting stenting of the proximal LAD coronary artery with a 3.5X15 mm plus 3.0X8 mm Xience Alpine stents as described above. The second stent was needed to cover distal edge of th efirst stent in an overlapping fashion. 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
--- OUTSIDE RECORDS SUMMARY | 2022-06-11 12:49 | XMS_ITS | Continuity of Care Document ---
:1945 Author Organization [facility] Address [address] [place] [address]- Care Team Providers Name Role Phone Christina BAZAN, Chino Dao Primary Care Physician [facility]counter [facility] Date(s): 02/08/20 - 03/09/20 [facility] [address] [address]- [facility] Allergies, Adverse Reactions, Alerts Substance Reaction Severity Status atorvastatin1 Active amLODIPine2 Active 5maku9fkhvq Immunizations Given and Recorded Vaccine Date Status [...] P atient Refuses 1Result Comment: [05/27/2017] [facility] [id number]/Late Reason: Wan to Standard Admin [id number] Note: #24Admin Note: historical data Medications Aspirin = 81 mg, By Mouth, Daily, 0 Refills, Maintenance Start Date: 12/26/11 Status: OrderedBevespi Aerosphere 9 mcg-4.8 mcg/inh inhalation aerosol 2 puffs, Inhalation, 2 times a day, 4 by 28 doses lot [id number] 05-14, # 1 Doses, 11 Refills, Maintenance, 02/12/19 10:52:38 EDT, 2 puffs Inhalation 2 times a day,Instr:4 by 28 doses; lot [id number] 05-14 Start Date: 02/12/19 Status: Orderedcalcium (as [...] 02/08/20 7:20:00 EDT, Route to Pharmacy Electronically, [facility] [...] tablet, 0 Refills, Maintenance, 02/22/20 9:20:00 EDT,Tablet, [facility] # [facility], partial fill upon request, 02/29/20, 149.9, cm, 02/14/20 11:11:00 EDT, Height, 68.9, kg, 07/12/19 14:56:00 EST, Dry Weight Start Date: 02/22/20 Stop Date: 03/21/20 Status: Orderedlevothyroxine 125 mcg (0.125 mg) oral tablet 1 tablet = 125 mcg, By Mouth, Daily, # 30 tablet, 5 Refills, Maintenance, 10/18/19 14:04:00 EDT, Tablet, [facility] # [...] Refills, Maintenance, 02/08/20 7:20:00 EDT, CR Tablet, [facility] [...] Replace Required Details, Route to Pharmacy Electronically, [facility] # 50, 149.9, cm, 10/14/19 14:23:00 EDT, Height, 68.9, kg, 1... 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 fpwubdr0xoslml repeat sdx; injections,fentanyl,morphine,oxycodone er8Dr Oh no surgery re neck,fnqn3rlc Dr King,yesterday NO SURGERY, rx corsett,pool10 evaluated by two neurosurgeons,pain ucapxddw98jjads uj14Nzghro 24-hour urine kklvkhnf12PBRF increased alpha2 cozvbaehn46qsfumq iron,ferrritin,cderloplasmin; neg HEP a,B,J02kymqiyp Oswestry Disability Index: 48% ( severe disability ) on 04/15/16; updated [place] Back Pain Scale:44 on 04/15/16; updated [place]: 7 on 04/15/1616Initial Oswestry Disability Index: 48% ( severe disability ) on 11/24/14; initial [place] Back Pain Scale: 48 on 11/24/14; initial [place]: 5 on 11/24/1516egd . Bilateral common femoral artery endarterectomy. 3. Left common femoral artery patch angioplasty with PTFE. 4. 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 CURRENT THERAPY: Tamoxifen started in 11/17/14, prior anastrozole 11/2012- 09/2014, zoledronic acid, received 02/2015 and 08/2015.55byovu16Vcwdlaaschxgqt Summary Successful drug eluting stenting of the proximal LAD coronary artery with a 3.5X15 mm plus 3.0X8 mm Xience Alpine stents as described above. The second stent was needed to cover distal edge of th efirst stent in an overlapping fashion. 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
--- OUTSIDE RECORDS SUMMARY | 2022-06-11 12:49 | XMS_ITS | Continuity of Care Document ---
:1945 Author Organization [facility] Address [address] [place] [address]- Care Team Providers Name Role Phone Christina BAZAN, Chino Dao Primary Care Physician Encounter [facility] [place] Date(s): 11/05/21 - 11/05/[address] [address]- Encounter Diagnosis Abdominal pain in female (Final) - 11/05/21 Discharge Disposition: A-D/C Home Attending Physician: Prerna Blackwell MD Admitting Physician: Prerna Blackwell MD Referring Physician: Not on Staff, Referring MD Allergies, Adverse Reactions, Alerts Substance Reaction Severity Status spironolactone1 Active lisinopril2 Active amLODIPine3 Active atorvastatin4 Active thiazide diuretics5 Active 7aynlb1zqylkqr luvcfujf9jerhg6kkhu7xgoudbgwsgfp Immunizations Given and Recorded Vaccine Date Status [...] P atient Refuses 1Result Comment: [facility]: [phone] Comment: [facility]: [phone] Comment: [05/27/2017] [facility] [phone]/Late Reason: Wan to Standard Admin Orfir3Qxoqd Note: #26Admin Note: historical data Medications aspirin [...] oral tablet 25 mg, Tablet, By Mouth, Once, STAT, 11/05/21 11:20:00 EDT, Stop date 11/05/21 11:20:00 EDT Start Date: 11/05/21 Stop Date: 11/05/21 Status: Completedcarvedilol 25 mg oral tablet 1, tablet, By Mouth, 2 times a day, # 180 tablet, Refills 0, Route to Pharmacy Electronically, [facility] # 50, 149, cm, 10/16/21 14:48:00 EDT, [...] # 30 tablet, 5 Refills, 08/15/21 13:24:00 EST,[facility] # 50, 149, cm, 08/15/21 [...] 01/09/21 Status: OrderedHYDROmorphone 4 mg oral tablet 4 mg, Tablet, By Mouth, Once, STAT, 11/05/21 11:38:00 EDT, Stop date 11/05/21 11:38:00 EDT Start Date: 11/05/21 Stop Date: 11/05/21 Status: CompletedHYDROmorphone 4 mg oral tablet 1 tablet = 4 mg, By Mouth, Every 8 hours, # 84 tablet, 0 Refills, Maintenance, 10/09/21 9:33:00 EDT,Tablet, [facility] # 50, partial fill upon request, 149, cm, 08/15/21 11:10:00 EST, Height, 68.9, kg, 12/21/20 8:52:00 EDT, Dry Weight Start Date: 10/09/21 Stop Date: 11/06/21 Status: OrderedImodium A-D 2 mg, By Mouth, [...] to Pharmacy Electronically, [facility], Partial fill upon patient request if the prescription... Start Date: 12/27/20 Status: OrderedVentolin HFA 108 mcg/inh inhalation aerosol with adapter See Instructions, INHALE 2 PUFFS FOUR TIMES A DAY NEEDED FOR WHEEZING, # 18 Gm, 1 Refills, Maintenance, 10/18/21 11:44:00 EDT, [facility] # 50, 149, [...] breast cancer Left, IDC, Active pT1c pN0, ER/[place] positive, Her-2/angelito negative, 2012(Confirmed)22, 23 History of [...] 10/18/21 Active Vitamin D Deficiency(Confirmed) Active 1per gastroenterology;dgqtuzp5Xprvouer to gastroenterology no-show for myarulgumxl7rnu6 40%4chronic pqmodjnrvq5EFDY:2 low wwjsc2XBMS test done,MASS MARKET ANALYSIS DIRECTOR furtaco9dqclho repeat sdx; injections,fentanyl,morphine,oxycodone er8Dr Oh no surgery re neck,hrjj8suv Dr King,yesterday NO SURGERY, rx corsett,pool10 evaluated by two neurosurgeons,pain dskcpkpq10bvnxi xa20Spinzs 24-hour urine srdmtvhe17RPGV increased alpha2 gktlixcou39tahamp iron,ferrritin,cderloplasmin; neg HEP a,B,K15rgdwjrz Oswestry Disability Index: 48% ( severe disability ) on 04/15/16; updated [place] Back Pain Scale:44 on 04/15/16; updated [place]: 7 on 04/15/1616Initial Oswestry Disability Index: 48% ( severe disability ) on 11/24/14; initial [place] Back Pain Scale: 48 on 11/24/14; initial [place]: 5 on 7egd . Bilateral common femoral artery endarterectomy. 3. Left common femoral artery patch angioplasty with PTFE. 4. 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 CURRENT THERAPY: Tamoxifen started in 11/17/14, prior anastrozole 11/2012- 09/2014, zoledronic acid, received 02/2015 and 08/2015.20bofwi90Imxovdjmpxyvjm Summary Successful drug eluting stenting of the proximal LAD coronary artery with a 3.5X15 mm plus 3.0X8 mm Xience Alpine stents as described above. The second stent was needed to cover distal edge of th efirst stent in an overlapping fashion. The stents were post-dilated using a 3.5 mm non-compliant balloon.25 now hyperthyroid,exopthalmous;Dr MurphyXhdqhv55wfiazjw pre diabetes increased risk ymhyemsg04abptlf81ku stable;recheck 12 ftcsau69uzohp lung nodules on neck CT recheck 6 rcyebg42CDL8k pwm86MKi4 four low axkuj66pbux normal,b12 low aolawe41 fit terst dqi35fsdvzhe D deficiency;correcting Procedures Procedure Date Related Diagnosis Body Site Status CT of abdomen and pelvis nad1 11/05/21 Completed 1No acute abnormality identified within the abdomen or pelvis. No evidence of acute diverticulitis. Vital Signs Most recent to oldest 1 2 3 [Reference Range]: Weight 69 kg 69 kg (11/05/21 7:44 AM) (11/05/21 7:40 AM) Oxygen Saturation [94-100 %] 97 % 98 % 99 % (11/05/21 3:03 PM) (11/05/21 1:22 PM) (11/05/21 11: 04 AM) Pulse Rate [55-90 bpm] 62 bpm 60 bpm 78 bpm (11/05/21 3:03 PM) (11/05/21 1:22 PM) (11/05/21 11: 46 AM) Blood Pressure [90-138/55-84 156/88 mm Hg 142/85 mm Hg 169 /95 mm Hg mm Hg] *H* *H* *H* (11/05/21 3:03 PM) (11/05/21 1:22 PM) (11/05/21 11: 46 AM) Respiratory Rate [16-30 16 br/min 15 br/min 15 br/mi n br/min] (11/05/21 3:03 PM) *L* *L* (11/05/21 1:22 PM) (11/05/21 12:45 PM) Temperature [96.8-100.4 98.5 DegF 98.7 DegF 98 DegF DegF] (11/05/21 1:22 PM) (11/05/21 11:04 AM) (11/05/21 7: 40 AM) Mode of Delivery (Oxygen) Room air Room air Room a ir (11/05/21 3:03 PM) (4/11/22 1:22 PM) (11/05/21 11: 04 AM) Blood pressure sites Arm, left Arm, left (11/05/21 11:04 AM) (11/05/21 7:40 AM) Temperature Route Oral Oral Oral (11/05/21 1:22 PM) (11/05/21 11:04 AM) (11/05/21 7: 40 AM) Social History Social History Type Response 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
--- OUTSIDE RECORDS SUMMARY | 2022-06-11 12:49 | XMS_ITS | Continuity of Care Document ---
:1945 Author Organization [facility] Address [address] [place] [address]- Care Team Providers Name Role Phone Christina BAZAN, Chino Dao Primary Care Physician Encounter [facility] [place] Date(s): 08/15/21 - 08/22/21 [facility] [address] [place] [address]- Encounter Diagnosis Hyponatremia (Discharge Diagnosis) - 08/15/21 Essential hypertension (Discharge Diagnosis) - 08/15/21 Attending Physician: Rosy Alvares NP Referring Physician: Chino Vasquez MD Allergies, Adverse Reactions, Alerts Substance Reaction Severity Status spironolactone1 Active lisinopril2 Active atorvastatin3 Active thiazide diuretics4 Active amLODIPine5 Active 9ysbae1azjjqvm mopxcuhb2rlkq8iblhvprujumd3ndujy Immunizations Given and Recorded Vaccine Date Status [...] [facility]: [phone] Comment: [facility]: [phone] Comment: [05/27/2017] [facility] [phone]/Late Reason: Wan to Standard Admin Yvyfn2Ccguf Note: #26Admin Note: historical data Medications aspirin [...] 0, Route to Pharmacy Electronically, [facility], 149, cm, 07/18/21 14:05:00 [...] tablet, 5 Refills, 08/15/21 13:24:00 EST,[facility] # 50, 149, cm, 08/15/21 11:10:00 EST, Height, 68.9, kg, 12/21/20 8:52:00 EDT, Dry Weight Start Date: 08/15/21 Status: OrderedFLUoxetine 40 mg oral capsule See Instructions, TAKE 1 CAPSULE BY MOUTH DAILY., # 30 capsule, 5 Refills, 08/15/21 13:23:00 EST, [facility] # [...] Maintenance, 08/10/21 16:13:00 EST, Tablet, [facility] [...] tablet, 5 Refills, 08/15/21 13:24:00 EST,[facility] # 50, [...] 12/27/20 9:18:00 EDT, Route to Pharmacy Electronically, [facility], Partial fill upon patient request [...] Active use(Confirmed) Vitamin D Deficiency(Confirmed) Active 1per gastroenterology;wkhyyyd3Tabumyah to gastroenterology no-show for jqhgssggxoj7rjc4 40%4chronic udoapdbnvh7UGAU:2 low zfdsi6FRLY test done,MASS MANAGER SIX SIGMA qeuerao5qzxmrp repeat sdx; injections,fentanyl,morphine,oxycodone er8Dr Oh no surgery re neck,ubpj3gbk Dr King,yesterday NO SURGERY, rx corsett,pool10 evaluated by two neurosurgeons,pain wgekfrul10rvnhb ia46Envegy 24-hour urine hvfmefbj40HGFK increased alpha2 qxquppgjk24yncfvg iron,ferrritin,cderloplasmin; neg HEP a,B,B55ljgewvu Oswestry Disability Index: 48% ( severe disability ) on 04/15/16; updated [place] Back Pain Scale:44 on 04/15/16; updated [place]: 7 on 04/15/1616Initial Oswestry Disability Index: 48% ( severe disability ) on 11/24/14; initial [place] Back Pain Scale: 48 on 11/24/14; initial [place]: 5 on 7egd . Bilateral common femoral artery endarterectomy. 3. Left common femoral artery patch angioplasty with PTFE. 4. 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 CURRENT THERAPY: Tamoxifen started in 11/17/14, prior anastrozole 11/2012- 09/2014, zoledronic acid, received 02/2015 and 08/2015.60codqo85Sswuvqgsoxzubo Summary Successful drug eluting stenting of the proximal LAD coronary artery with a 3.5X15 mm plus 3.0X8 mm Xience Alpine stents as described above. The second stent was needed to cover distal edge of th efirst stent in an overlapping fashion. The stents were post-dilated using a 3.5 mm non-compliant balloon.25 now hyperthyroid,exopthalmous;Dr MurphyQadkir80zersezl pre diabetes increased risk obhlcukb35bvouip04zb stable;recheck 12 uajhie93vdubo lung nodules on neck CT recheck 6 anvdda26LDD1e vfg31EHy3 four low czmtr38eold normal,b12 low jewytv18 fit terst bjk59yxghajc D deficiency;correcting Diagnosis Diagnosis Type Effective Dates Health Clinical Infor mant Status Service Hyponatremia Discharge 08/15/21 Diagnosis Essential Discharge 08/15/21 hypertension Diagnosis Vital Signs Most recent to oldest [Reference Range]: 1 Height 149 cm (08/15/21 11:10 AM) Weight 71.9 kg (08/15/21 11:10 AM) Oxygen Saturation [94-100 %] 97 % (08/15/21 11:10 AM) Pulse Rate [55-90 bpm] 59 bpm (08/15/21 11:10 AM) Body Mass Index [18.5-24.99] 32.39 *>HHI* (08/15/21 11:10 AM) Blood Pressure [90-138/55-84 mm Hg] 133/62 mm Hg (08/15/21 11:10 AM) Blood pressure sites Arm, right (08/15/21 11:10 AM) Social History Social History Type Response 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
--- OUTSIDE RECORDS SUMMARY | 2022-06-11 12:49 | XMS_ITS | Continuity of Care Document ---
:1945 Author Organization [facility] Address [address] [place] [address]- Care Team Providers Name Role Phone Chino Vasquez MD Primary Care Physician Encounter [facility] [place] Date(s): 02/25/22 - 03/04/22 [facility] [address] [place] [address]- Encounter Diagnosis Lower extremity edema (Discharge Diagnosis) - 02/25/22 Attending Physician: Chino Vasquez MD Allergies, Adverse Reactions, Alerts Substance Reaction Severity Status spironolactone1 Active lisinopril2 Active atorvastatin3 Active thiazide diuretics4 Active amLODIPine5 Active 3mrqmm3hygmmnc xcafnchm3ohim3upoqebuvcsex3bmqfa Immunizations Given and Recorded Vaccine Date Status [...] P atient Refuses 1Result Comment: [facility]: [phone] Comment: [facility]: [phone] Comment: [facility]: [phone] Comment: [05/27/2017] [facility] [phone] Early/Late Reason: Wan to Standard Admin Zrjpc6Eekjb Note: #27Admin Note: historical data Medications aspirin [...] 0 Refills, Maintenance, 02/26/22 12:07:00 EDT, Tablet, [facility] # [...] 12/27/20 9:18:00 EDT, Route to Pharmacy Electronically, [facility], Partial fill upon patient request [...] 10/18/21 Active Vitamin D Deficiency(Confirmed) Active 1per gastroenterology;reaviir9Saneytau to gastroenterology no-show for zjgeujhdglh8cgf7 40%4chronic suiylenlbx5RDER:2 low dhjra8YGFT test done,MASS PRODUCTION LINE MANAGER vtvnasn2yidcwj repeat sdx; injections,fentanyl,morphine,oxycodone er8Dr Oh no surgery re neck,pese7yhk Dr King,yesterday NO SURGERY, rx corsett,pool10 evaluated by two neurosurgeons,pain wxbkjicv38sqfon ol02Swjpzt 24-hour urine ccfwzhyy06WEYO increased alpha2 wexkegmbg83ifbbfw iron,ferrritin,cderloplasmin; neg HEP a,B,P63ujucpby Oswestry Disability Index: 48% ( severe disability ) on 04/15/16; updated [place] Back Pain Scale:44 on 04/15/16; updated [place]: 7 on 04/15/1616Initial Oswestry Disability Index: 48% ( severe disability ) on 11/24/14; initial [place] Back Pain Scale: 48 on 11/24/14; initial [place]: 5 on 11/24/1516egd . Bilateral common femoral artery endarterectomy. 3. Left common femoral artery patch angioplasty with PTFE. 4. 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 CURRENT THERAPY: Tamoxifen started in 11/17/14, prior anastrozole 11/2012- 09/2014, zoledronic acid, received 02/2015 and 08/2015.02iqmng07Ikjpavonptjmbq Summary Successful drug eluting stenting of the proximal LAD coronary artery with a 3.5X15 mm plus 3.0X8 mm Xience Alpine stents as described above. The second stent was needed to cover distal edge of th efirst stent in an overlapping fashion. 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
--- OUTSIDE RECORDS SUMMARY | 2022-06-11 12:49 | XMS_ITS | Continuity of Care Document ---
:[address] [facility] Address [address] [place] [address]- Care Team Providers Name Role Phone Christina BAZAN, Chino Dao Primary Care Physician Encounter [facility] Date(s): 10/11/21 - 11/10/21 [facility] [address] [place] [address]- Allergies, Adverse Reactions, Alerts Substance Reaction Severity Status spironolactone1 Active lisinopril2 Active atorvastatin3 Active thiazide diuretics4 Active amLODIPine5 Active 7jfuwr0ubxbyda dchazkxo3xwki7qsuddojsxqzw4trzhv Immunizations Given and Recorded Vaccine Date Status [...] Not Given P atient Refuses 1Result Comment: [facility]: [phone] Comment: [facility]: [phone] Comment: [05/27/2017] [facility] [phone]/Late Reason: Wan to Standard Admin [id number] Note: #26Admin Note: historical data Medications aspirin [...] tablet, Refills 0, Route to Pharmacy Electronically, [facility] # 50, 149, cm, 10/16/21 [...] # 30 tablet, 5 Refills, 08/15/21 13:24:00 EST,[facility] # [facility], 149, cm, [...] Route to Pharmacy Electronically, [facility], Partial fill upon patient [...] 10/18/21 Active Vitamin D Deficiency(Confirmed) Active 1per gastroenterology;yrrknsd4Wewewwrx to gastroenterology no-show for xlhfsjkjrml5gsq6 40%4chronic nwrrlzdkpo2YDCB:2 low slfwu8VODN test done,MASS TWO WAY RADIO TECHNICIAN wrzkaex8hcsaqh repeat sdx; injections,fentanyl,morphine,oxycodone er8Dr Oh no surgery re neck,bxjh8zse Dr King,yesterday NO SURGERY, rx corsett,pool10 evaluated by two neurosurgeons,pain cqfytzjm95yhiyx wj25Lgnrlu 24-hour urine gkeslbax98WVZV increased alpha2 qzjlxhmui87iromve iron,ferrritin,cderloplasmin; neg HEP a,B,X18zqklhbd Oswestry Disability Index: 48% ( severe disability ) on 04/15/16; updated [place] Back Pain Scale:44 on 04/15/16; updated [place]: 7 on 04/15/1616Initial Oswestry Disability Index: 48% ( severe disability ) on 11/24/14; initial [place] Back Pain Scale: 48 on 11/24/14; initial [place]: 5 on 11/24/1516egd . Bilateral common femoral artery endarterectomy. 3. Left common femoral artery patch angioplasty with PTFE. 4. 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 CURRENT THERAPY: Tamoxifen started in 11/17/14, prior anastrozole 11/2012- 09/2014, zoledronic acid, received 02/2015 and 08/2015.63mlfyl34Xtteymjvymamuc Summary Successful drug eluting stenting of the proximal LAD coronary artery with a 3.5X15 mm plus 3.0X8 mm Xience Alpine stents as described above. The second stent was needed to cover distal edge of th efirst stent in an overlapping fashion. 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
--- OUTSIDE RECORDS SUMMARY | 2022-06-11 12:50 | XMS_ITS | Continuity of Care Document ---
:1945 Author Organization [facility] Address [address] [place] [address]- Care Team Providers Name Role Phone Christina BAZAN, Chino Dao Primary Care Physician [place] [facility] [place] 11/06[place]21 - 12/06/21 [place] [id number] [address]- Attending Physician: AdmSaurabh carroll Admitting Physician: AdmtrSaurabh Referring Physician: Admtr, Ar8 Allergies, Adverse Reactions, Alerts Substance Reaction Severity Status spironolactone1 Active lisinopril2 Active atorvastatin3 Active thiazide diuretics4 Active amLODIPine5 Active 5onnbg0rttkfrw atxyeecl4gcko2vvfjvpbrlffz1zuuqg Immunizations Given and Recorded Vaccine Date Status [...] 1Result Comment: [facility]: [phone] Comment: [facility]: [phone] Comment: [facility]: [phone] Comment: [05/27/2017] [facility] [phone] Early/Late Reason: Wan to Standard Admin Oqpuz2Wxxdd Note: #27Admin Note: historical data Medications aspirin [...] 0, Route to Pharmacy Electronically, [facility] # 50, 149, cm, 10/16/21 14:48:00 EDT, [...] tablet, 0 Refills, Maintenance, 12/04/21 8:56:00 EDT,Tablet, [facility] # [facility], [...] 11 Refills, Maintenance, 08/15/21 13:23:00 EST, Capsule, [facility], Partial fill [...] 12/27/20 9:18:00 EDT, Route to Pharmacy Electronically, [facility], Partial fill upon patient [...] breast cancer Left, IDC, Active pT1c pN0, ER/[place] positive, Her-2/angelito negative, 2012(Confirmed)22, 23 History of [...] 10/18/21 Active Vitamin D Deficiency(Confirmed) Active 1per gastroenterology;ssvmtci3Amovfodn to gastroenterology no-show for qicflfdllib4dll7 40%4chronic kiphpfsmri1VBMC:2 low rsvhg2ZQYD test done,MASS ICT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 iwdierx0flpkvd repeat sdx; injections,fentanyl,morphine,oxycodone er8Dr Oh no surgery re neck,vyhq1ilq Dr King,yesterday NO SURGERY, rx corsett,pool10 evaluated by two neurosurgeons,pain kowhhikk10yqmed sd49Tjffnj 24-hour urine fnoxmqam83XOTP increased alpha2 zwxkmcpxc68gmxnju iron,ferrritin,cderloplasmin; neg HEP a,B,R52lhrlgvy Oswestry Disability Index: 48% ( severe disability ) on 04/15/16; updated [place] Back Pain Scale:44 on 04/15/16; updated [place]: 7 on 04/15/1616Initial Oswestry Disability Index: 48% ( severe disability ) on 11/24/14; initial [place] Back Pain Scale: 48 on 11/24/14; initial [place]: 5 on 11/24/1516egd . Bilateral common femoral artery endarterectomy. 3. Left common femoral artery patch angioplasty with PTFE. 4. 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 CURRENT THERAPY: Tamoxifen started in 11/17/14, prior anastrozole 11/2012- 09/2014, zoledronic acid, received 02/2015 and 08/2015.25llaaj18Tnkeedioeboryk Summary Successful drug eluting stenting of the proximal LAD coronary artery with a 3.5X15 mm plus 3.0X8 mm Xience Alpine stents as described above. The second stent was needed to cover distal edge of th efirst stent in an overlapping fashion. 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
--- OUTSIDE RECORDS SUMMARY | 2022-06-11 12:50 | XMS_ITS | Continuity of Care Document ---
:1945 Author Organization [facility] Adult Address [address] [place] [address]- Care Team Providers Name Role Phone Christina BAZAN, Chino Dao Primary Care Physician Encounter [facility] Date(s): 01/18/21 - 01/25/21 [facility] [address] [place] [address]- Encounter Diagnosis Essential hypertension (Discharge Diagnosis) - 01/18/21 Impacted cerumen, left ear (Discharge Diagnosis) - 01/18/21 Attending Physician: Matty COUGHLIN, Solange Briceño Referring Physician: Christina BAZAN, Chino Dao Allergies, Adverse Reactions, Alerts Substance Reaction Severity Status spironolactone1 Active lisinopril2 Active atorvastatin3 Active amLODIPine4 Active 3qcbih6inerbuc qvvyuafy1dovx3sszcl Immunizations Given and Recorded Vaccine Date Status [...] [05/27/2017] [facility] [id number]/Late Reason: Wan to Standard Admin [id number] Note: #24Admin Note: historical data Medications aspirin [...] 01/09/21 12:32:00 EDT, Route to Pharmacy Electronically, [facility], REPLACES METOPROLOL, 149.... Start Date: 01/09/21 Stop Date: 02/08/21 Status: Orderedcarvedilol 6.25 mg oral tablet 6.25 mg, 1, tablet, By Mouth, 2 times a day, for 30 days, REPLACES METOPROLOL, # 60 tablet, Refills 11, Tot. Refills 11, Acute 02/03/22 12:32:00 EDT, 02/08/21 12:32:00 EDT, Route to Pharmacy Electronically, [facility], REPLACES METOPROLOL, 14... Start Date: 02/08/21 Stop Date: 02/03/22 Status: Orderedchlorthalidone 25 mg oral tablet 25 mg, 1, tablet, By Mouth, Daily, # 30 tablet, Refills 1, Tot. Refills 1, Maintenance, 12/28/20 9:19:00 EDT, Route to Pharmacy Electronically, [facility] # [facility], Partial fill upon patient [...] 5 Refills, Maintenance, 08/22/20 18:56:00 EST, Aerosol, [facility], 149.9, cm, 06/07/20 11:48:00 EST, Height, 68.9, kg, 07/12/19 14:56:00 EST, DryWeight Start Date: 08/22/20 Status: OrderedFLUoxetine 40 mg oral capsule 1 capsule = 40 mg, By Mouth, Daily, # 30 capsule, 5 Refills, Maintenance, 08/13/20 10:39:00 EST, Capsule, [facility], 149.9, cm, 06/07/20 [...] 0 Refills, Maintenance, 01/16/21 10:45:00 EDT, Tablet, [facility] # [facility], partial fill upon request, 02/06/21, 149.9, cm, 01/09/21 15:17:00 EDT,Height, 68.9, kg, 12/21/20 8:52:00 EDT, Dry Weight Start Date: 01/16/21 Stop Date: 02/13/21 Status: OrderedHYDROmorphone 4 mg oral tablet 1 tablet = 4 mg, By Mouth, Every 8 hours, for 28 days, # 84 tablet, 0 Refills, Hard Stop 01/31/21 16:59:00 EDT, 01/03/21 16:59:00 EDT, Tablet, [facility] # [facility], partial [...] 9:18:00 EDT, Route to Pharmacy Electronically, [facility], Partial fill upon patient request [...] 01/22/21 11:44:00 EDT, [facility] Electron[facility], [facility] [...] 9:18:00 EDT, Route to Pharmacy Electronically, [facility], Partial fill upon patient request if the prescription... Start Date: 12/27/20 Status: OrderedVentolin HFA 108 mcg/inh inhalation aerosol with adapter 2 puffs, Inhalation, 4 times a day, PRN for wheezing, # 1 each, 1 Refills, Maintenance, 01/18/21 11:08:00 EDT, Aerosol, [facility], 149, cm, 01/18/21 11:04:00 [...] 5 Refills, Maintenance, 11/06/20 16:02:00 EDT, Tablet, [facility] # [...] Active use(Confirmed) Vitamin D Deficiency(Confirmed) Active 1per gastroenterology;yjtfpbb9Lkvcyitp to gastroenterology no-show for eqzsphmgehx1vzy1 40%4chronic jpooyhmvia4VVGR:2 low kcamp4PTEH test done,MASS HISTOLOGIST rgcnthp8mtutfs repeat sdx; injections,fentanyl,morphine,oxycodone er8Dr Oh no surgery re neck,pkuv5zxh Dr Linson,yesterday NO SURGERY, rx corsett,pool10 evaluated by two neurosurgeons,pain ofyprjmh66mgupo lz70Uyyaog 24-hour urine gvxdbftk81DXJO increased alpha2 dshonilnd79xqbvag iron,ferrritin,cderloplasmin; neg HEP a,B,S43xbqhjns Oswestry Disability Index: 48% ( severe disability ) on 04/15/16; updated [place] Back Pain Scale:44 on 04/15/16; updated [place]: 7 on 04/15/1616Initial Oswestry Disability Index: 48% ( severe disability ) on 11/24/14; initial [place] Back Pain Scale: 48 on 11/24/14; initial [place]: 5 on 11/24/1516egd . Bilateral common femoral artery endarterectomy. 3. Left common femoral artery patch angioplasty with PTFE. 4. 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 CURRENT THERAPY: Tamoxifen started in 11/17/14, prior anastrozole 11/2012- 09/2014, zoledronic acid, received 02/2015 and 08/2015.85cmhzd46Tccsuorfoynvfp Summary Successful drug eluting stenting of the proximal LAD coronary artery with a 3.5X15 mm plus 3.0X8 mm Xience Alpine stents as described above. The second stent was needed to cover distal edge of th efirst stent in an overlapping fashion. The stents were post-dilated using a 3.5 mm non-compliant balloon.25 now hyperthyroid,exopthalmous;Dr MurphyJlapal62onmnggh pre diabetes increased risk tbiwzety93tvujga34ot stable;recheck 12 alfmgb42rnpuk lung nodules on neck CT recheck 6 ylccgw00TZT4d edh45UAg0 four low jztxz50vqja normal,b12 low vgzquk57 fit terst kzd60sfitnzh D deficiency;correcting Diagnosis Diagnosis Type Effective Dates Health Clinical Infor mant Status Service Essential Discharge 01/18/21 hypertension Diagnosis Impacted cerumen, Discharge 01/18/21 left ear Diagnosis Vital Signs Most recent to oldest [Reference Range]: 1 2 Height 149 cm 149 cm (01/18/21 11:04 AM) (01/18/21 10:49 AM) Weight 71.1 kg (01/18/21 10:49 AM) Oxygen Saturation [94-100 %] 97 % (01/18/21 10:49 AM) Pulse Rate [55-90 bpm] 68 bpm 80 bpm (01/18/21 11:04 AM) (01/18/21 10:49 AM) Body Mass Index [18.5-24.99] 32.03 *>HHI* (01/18/21 10:49 AM) Blood Pressure [90-138/55-84 mm Hg] 138/72 mm Hg 144/ 70 mm Hg (01/18/21 11:04 AM) *H* (01/18/21 10:49 AM) Respiratory Rate [16-30 br/min] 16 br/min (01/18/21 10:49 AM) Temperature [96.8-100.4 DegF] 98.8 DegF (01/18/21 10:49 AM) Mode of Delivery (Oxygen) Room air (01/18/21 10:49 AM) Blood pressure sites Arm, left Arm, right (01/18/21 11:04 AM) (01/18/21 10:49 AM) Temperature Route Oral (01/18/21 10:49 AM) Weight Obtained Via Standing scale (01/18/21 10:49 AM) Social History Social History Type Response 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
--- OUTSIDE RECORDS SUMMARY | 2022-06-11 12:50 | XMS_ITS | Continuity of Care Document ---
:1945 Author Organization [facility] Adult Address [address] [place] [address]- Care Team Providers Name Role Phone Christina BAZAN, Chino Dao Primary Care Physician Encounter [facility] Date(s): 10/03/20 - 11/02/20 [facility] [address] [place] [address]- Allergies, Adverse Reactions, Alerts Substance Reaction Severity Status spironolactone1 Active lisinopril2 Active atorvastatin3 Active amLODIPine4 Active 7bmqtn6tmdglwh erybtptx3zzum3inrvj Immunizations Given and Recorded Vaccine Date Status [...] Given P atient Refuses 1Result Comment: [05/27/2017] [facility] [id number]/Late Reason: Wan to Standard Admin [id number] Note: #24Admin Note: historical data Medications Aspirin [...] 10/26/20 14:56:00 EDT, Route to Pharmacy Electronically, [facility] # [facility], Partial fill upon patient request if the prescription is for a schedule II opioid feliberto... Start Date: 10/26/20 Status: OrderedFlovent HFA 110 mcg/inh inhalation aerosol 2 puffs, Inhalation, 2 times a day, # 1 each, 5 Refills, Maintenance, 08/22/20 18:56:00 EST, Aerosol, [facility] # [facility], 149.9, cm, 06/07/20 11:48:00 EST, Height, 68.9, kg, 07/12/19 14:56:00 EST, DryWeight Start Date: 08/22/20 Status: OrderedFLUoxetine 40 mg oral capsule 1 capsule = 40 mg, By Mouth, Daily, # 30 capsule, 5 Refills, Maintenance, 08/13/20 10:39:00 EST, Capsule, [facility] [...] tablet, 0 Refills, Maintenance, 10/31/20 8:03:00 EDT,Tablet, [facility] # [...] 08/13/20 10:39:00 EST, Route to Pharmacy Electronically, [facility], 149.9, cm, 06/07/20 11:48:00 EST, Height, 68.9, kg, 07/12/19 14:56:00 EST, Dr... Start Date: 08/13/20 Status: OrderedPriLOSEC OTC 20 mg oral delayed release tablet 1 tablet = 20 mg, By Mouth, Daily, # 90 tablet, 0 Refills, Maintenance, 08/07/20 11:06:00 EST, CR Tablet, [facility] [...] 5 Refills, Maintenance, 10/18/20 9:01:00 EDT, Aerosol, [facility] [...] Active use(Confirmed) Vitamin D Deficiency(Confirmed) Active 1per gastroenterology;mjafeqc9Pttsqyad to gastroenterology no-show for gwuxbwvpoqv3nzg8 40%4chronic bhwloscrnk4ZDAT:2 low qippx2PPXC test done,MASS LEAN MANAGER crusdvw4tqjcfs repeat sdx; injections,fentanyl,morphine,oxycodone er8Dr Oh no surgery re neck,ldgi5yru Dr King,yesterday NO SURGERY, rx corsett,pool10 evaluated by two neurosurgeons,pain lblaspgg14neszl nu54Aotkrp 24-hour urine drcfrcqk13NDXY increased alpha2 ktwcyablv98cvhcsh iron,ferrritin,cderloplasmin; neg HEP a,B,H10xhgphpy Oswestry Disability Index: 48% ( severe disability ) on 04/15/16; updated [place] Back Pain Scale:44 on 04/15/16; updated [place]: 7 on 04/15/1616Initial Oswestry Disability Index: 48% ( severe disability ) on 11/24/14; initial [place] Back Pain Scale: 48 on 11/24/14; initial [place]: 5 on 11/24/1516egd . Bilateral common femoral artery endarterectomy. 3. Left common femoral artery patch angioplasty with PTFE. 4. 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 CURRENT THERAPY: Tamoxifen started in 11/17/14, prior anastrozole 11/2012- 09/2014, zoledronic acid, received 02/2015 and 08/2015.50rchkm21Qrkxibfnqmfyuq Summary Successful drug eluting stenting of the proximal LAD coronary artery with a 3.5X15 mm plus 3.0X8 mm Xience Alpine stents as described above. The second stent was needed to cover distal edge of th efirst stent in an overlapping fashion. 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
--- OUTSIDE RECORDS SUMMARY | 2022-06-11 12:50 | XMS_ITS | Continuity of Care Document ---
:1945 Author Organization [facility] Adult Address [address] [place] [address]- Care Team Providers Name Role Phone Christina BAZAN, Chino Dao Primary Care Physician [place] [facility] Date(s): 02/25/22 - 03/27/22 [facility] [address] [place] [address]- Allergies, Adverse Reactions, Alerts Substance Reaction Severity Status spironolactone1 Active lisinopril2 Active atorvastatin3 Active thiazide diuretics4 Active amLODIPine5 Active 4gaaxf7qpurcvn nwllwmze4qnhk8hymfbawlpeiv4bkgnh Immunizations Given and Recorded Vaccine Date Status [...] Not Given P atient Refuses 1Result Comment: [facility]: [id number] Comment: [facility]: [id number] Comment: [facility]: [phone] Comment: [05/27/2017] [facility] [phone] Early/Late Reason: Wan to Standard Admin [id number] Note: #27Admin Note: historical data Medications aspirin [...] 01/14/22 21:32:00 EDT, Route to Pharmacy Electronically, [facility], 149, cm, 01/09/22 [...] 30 tablet, 5 Refills, 11/12/21 9:33:00 EDT, [facility], 149, cm, 10/18/21 12:13:00 EDT, Height, 68.9, kg, 12/21/20 8:52:00 EDT, Dry Weight Start Date: 11/12/21 Status: OrderedFLUoxetine 40 mg oral capsule 1 capsule, By Mouth, Daily, # 30 capsule, 5 Refills, [facility] # [facility], 149, cm, 02/06/22 9:42:00 EDT, Height, 68.5, kg, 11/19/21 15:42:00 EDT, Dry Weight Start Date: 02/11/22 Status: Orderedfurosemide 20 mg oral tablet 20 mg, 1, tablet, By Mouth, Daily, # 90 tablet, Refills 0, Tot. Refills 0, Maintenance, 02/21/22 12:19:00 EDT, Route to Pharmacy Electronically, [facility], 149, cm, 02/21/22 11:30:00 EDT, Height, 74.4, kg, 02/12/22 14:46:00 EDT, Dry Weight Start Date: 02/21/22 Status: Orderedhydrocortisone 2.5% topical cream 1 application, Topically, 3 times a day, # 30 Gm, 1 Refills, Maintenance, 01/09/21 12:15:00 EDT, Cream, [facility], 1 application Topically 3 times a day, 149.9, cm, 01/09/21 12:01:00 EDT, Height, 68.9, kg, 12/21/20 8:52:00 EDT, Dry Weight Start Date: 01/09/21 Status: OrderedHYDROmorphone 4 mg oral tablet 1 tablet = 4 mg, By Mouth, Every 8 hours, # 84 tablet, 0 Refills, Maintenance, 03/26/22 17:12:00 EDT, Tablet, [facility] [...] # 30 tablet, 5 Refills, 10/11/21 14:05:00 EDT,[facility], 149, cm, 08/15/21 [...] 12/27/20 9:18:00 EDT, Route to Pharmacy Electronically, [facility], Partial fill upon patient [...] 10/18/21 Active Vitamin D Deficiency(Confirmed) Active 1per gastroenterology;eswmild4Mausdczk to gastroenterology no-show for guxnlcyggpw5cyo6 40%4chronic fxpzagtvum4XJPA:2 low fcuyc3WKFF test done,MASS BLOOD COLLECTOR ycazhhh7mmpzam repeat sdx; injections,fentanyl,morphine,oxycodone er8Dr Oh no surgery re neck,ubpd7ubh Dr King,yesterday NO SURGERY, rx corsett,pool10 evaluated by two neurosurgeons,pain jicljqam27ehuqr ap96Llelqg 24-hour urine wxwussse27GJWK increased alpha2 vjfxemlkx16fflxaa iron,ferrritin,cderloplasmin; neg HEP a,B,W61noajqsw Oswestry Disability Index: 48% ( severe disability ) on 04/15/16; updated [place] Back Pain Scale:44 on 04/15/16; updated [place]: 7 on 04/15/1616Initial Oswestry Disability Index: 48% ( severe disability ) on 11/24/14; initial [place] Back Pain Scale: 48 on 11/24/14; initial [place]: 5 on 11/24/1516egd . Bilateral common femoral artery endarterectomy. 3. Left common femoral artery patch angioplasty with PTFE. 4. 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 CURRENT THERAPY: Tamoxifen started in 11/17/14, prior anastrozole 11/2012- 09/2014, zoledronic acid, received 02/2015 and 08/2015.05mmenf51Uooukdtdzofyzq Summary Successful drug eluting stenting of the proximal LAD coronary artery with a 3.5X15 mm plus 3.0X8 mm Xience Alpine stents as described above. The second stent was needed to cover distal edge of th efirst stent in an overlapping fashion. 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
--- OUTSIDE RECORDS SUMMARY | 2022-06-11 12:50 | XMS_ITS | Continuity of Care Document ---
:1945 Author Organization [facility] Adult Address [address] [place] [address]- Care Team Providers Name Role Phone Christina BAZAN, Chino Dao Primary Care Physician Encounter [facility] Date(s): 02/14/20 - 03/15/20 [facility] [address] [place] [address]- [facility] Allergies, Adverse Reactions, Alerts Substance Reaction Severity Status atorvastatin1 Active amLODIPine2 Active 5umrb1cvmku Immunizations Given and Recorded Vaccine Date Status [...] 1Result Comment: [05/27/2017] [facility] [id number]/Late Reason: Wan to Standard Admin [id number] Note: #24Admin Note: historical data Medications Aspirin = 81 mg, By Mouth, Daily, 0 Refills, Maintenance Start Date: 12/26/11 Status: OrderedBevespi Aerosphere 9 mcg-4.8 mcg/inh inhalation aerosol 2 puffs, Inhalation, 2 times a day, 4 by 28 doses lot [id number] 05-14, # 1 Doses, 11 Refills, Maintenance, 02/12/19 10:52:38 EDT, 2 puffs Inhalation 2 times a day,Instr:4 by 28 doses; lot [id number] 05-14 Start Date: 02/12/19 Status: Orderedcalcium (as carbonate) 500 mg oral tablet, chewable 1 tablet = 500 mg, Chew, Daily, # 150 tablet, 0 Refills, Maintenance, 09/21/19 14:07:00 EST, Chew Tablet Start Date: 09/21/19 Status: OrderedFlovent HFA 110 mcg/inh inhalation aerosol 2 puffs, Inhalation, 2 times a day, # 1 each, 5 Refills, Maintenance, 02/18/20 16:43:00 EDT, Aerosol, [facility], 149.9, cm, 02/14/20 11:11:00 EDT, Height, 68.9, kg, 07/12/19 14:56:00 EST, DryWeight Start Date: 02/18/20 Status: OrderedFLUoxetine 40 mg oral capsule 1 capsule = 40 mg, By Mouth, Daily, # 30 capsule, 5 Refills, Maintenance, 02/14/20 14:03:00 EDT, Capsule, [facility], 149.9, cm, 02/14/20 11:11:00 EDT, Height, 68.9, kg, 07/12/19 14:56:00 EST,Dry Weight Start Date: 02/14/20 Status: Orderedfurosemide 20 mg oral tablet 20 mg, 1, tablet, By Mouth, Daily, # 30 tablet, Refills 1, Tot. Refills 1, Maintenance, 02/08/20 7:20:00 EDT, Route to Pharmacy Electronically, [facility] # [facility], 149.9, cm, 02/03/20 14:20:00 [...] tablet, 0 Refills, Maintenance, 02/22/20 9:20:00 EDT,Tablet, [facility] # [facility], partial fill upon request, 02/29/20, 149.9, cm, 02/14/20 11:11:00 EDT, Height, 68.9, kg, 07/12/19 14:56:00 EST, Dry Weight Start Date: 02/22/20 Stop Date: 03/21/20 Status: Orderedlevothyroxine 125 mcg (0.125 mg) oral tablet 1 tablet = 125 mcg, By Mouth, Daily, # 30 tablet, 5 Refills, Maintenance, 10/18/19 14:04:00 EDT, Tablet, [facility] # [facility], 149.9, cm, 10/14/19 14:23:00 EDT, Height, 68.9, kg, 07/12/19 14:56:00 EST, Dry Weight Start Date: 10/18/19 Status: Orderedmetoprolol 25 mg oral tablet 25 mg, 1, tablet, By Mouth, 2 times a day, # 60 tablet, Refills 5, Tot. Refills 5, Maintenance, 02/14/20 14:03:00 EDT, [facility] Electron[facility], [facility] Refills, Maintenance, 02/08/20 7:20:00 EDT, CR Tablet, [facility] # [facility], 149.9, cm, 02/03/20 14:20:00 [...] Replace Required Details, Route to Pharmacy Electronically, [facility] # [facility], 149.9, cm, 10/14/19 14:23:00 EDT, Height, 68.9, kg, 1... Start Date: 10/15/19 Status: OrderedVentolin HFA 108 mcg/inh inhalation aerosol with adapter 2 puffs, Inhalation, 4 times a day, PRN for wheezing, # 1 each, 4 Refills, Maintenance, 11/16/19 13:50:00 EDT, Aerosol, [facility] # [facility], Original prescription sent on [...] Active use(Confirmed) Vitamin D Deficiency(Confirmed) Active 1per gastroenterology;fcotjge8Issdnqym to gastroenterology no-show for eiertkbwzxj0jap1 40%4chronic kikdgbcook1DSIT:2 low xsgxx3QSOT test done,MASS BONE GRINDER cozqqkw5wnqlgm repeat sdx; injections,fentanyl,morphine,oxycodone er8Dr Oh no surgery re neck,eemz5qza Dr King,yesterday NO SURGERY, rx corsett,pool10 evaluated by two neurosurgeons,pain lrveziwd09jtrly xl70Fvcxvx 24-hour urine vdrkyfko98FIDP increased alpha2 vtsifmfmw04lriwqt iron,ferrritin,cderloplasmin; neg HEP a,B,Z94nepbrcv Oswestry Disability Index: 48% ( severe disability ) on 04/15/16; updated [place] Back Pain Scale:44 on 04/15/16; updated [place]: 7 on 04/15/1616Initial Oswestry Disability Index: 48% ( severe disability ) on 11/24/14; initial [place] Back Pain Scale: 48 on 11/24/14; initial [place]: 5 on 11/24/1516egd . Bilateral common femoral artery endarterectomy. 3. Left common femoral artery patch angioplasty with PTFE. 4. 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 CURRENT THERAPY: Tamoxifen started in 11/17/14, prior anastrozole 11/2012- 09/2014, zoledronic acid, received 02/2015 and 08/2015.58bcots11Sququjlybnnowt Summary Successful drug eluting stenting of the proximal LAD coronary artery with a 3.5X15 mm plus 3.0X8 mm Xience Alpine stents as described above. The second stent was needed to cover distal edge of th efirst stent in an overlapping fashion. 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
--- OUTSIDE RECORDS SUMMARY | 2022-06-11 12:50 | XMS_ITS | Continuity of Care Document ---
:1945 Author Organization [facility] [place] Adult Address [address] [place] [address]- Care Team Providers Name Role Phone Christina BAZAN, Chino Dao Primary Care Physician Encounter [facility] Date(s): 01/14/22 - 02/13/22 [facility] [place] [facility] [address] [place] [address]- Allergies, Adverse Reactions, Alerts Substance Reaction Severity Status spironolactone1 Active lisinopril2 Active atorvastatin3 Active thiazide diuretics4 Active amLODIPine5 Active 8xzsks8ndwdavg tnfcziyg0tant2qcedltlcjnmj9bvjyg Immunizations Given and Recorded Vaccine Date Status [...] Refuses 1Result Comment: [facility]: [phone] Comment: [facility]: [id number] Comment: [facility]: [phone] Comment: [05/27/2017] [facility] [phone] Early/Late Reason: Wan to Standard Admin [id number] Note: #27Admin Note: historical data Medications aspirin [...] 01/14/22 21:32:00 EDT, Route to Pharmacy Electronically, [facility] # [facility], 149, cm, 01/09/22 13:12:00 EDT, Height, 68.5, kg, 11/19/21 15:42:00 EDT, Dry Weight Start Date: 01/14/22 Status: OrderedcloNIDine 0.1 mg oral tablet 0.1 mg, 1, tablet, By Mouth, Daily, # 60 tablet, Refills 5, Route to Pharmacy Electronically, [facility] # 50, 149, cm, 10/18/21 [...] 30 tablet, 5 Refills, 11/12/21 9:33:00 EDT, [facility] # 50, 149, cm, 10/18/21 12:13:00 EDT, Height, 68.9, kg, 12/21/20 8:52:00 EDT, Dry Weight Start Date: 11/12/21 Status: OrderedFLUoxetine 40 mg oral capsule 1 capsule, By Mouth, Daily, # 30 capsule, 5 Refills, [facility] # 50, 149, cm, 02/06/22 9:42:00 EDT, Height, 68.5, kg, 11/19/21 15:42:00 EDT, Dry Weight Start Date: 02/11/22 Status: Orderedfurosemide 20 mg oral tablet 20 mg, 1, tablet, By Mouth, Daily, # 30 tablet, Refills 0, Tot. Refills 0, Maintenance, 01/14/22 11:03:00 EDT, [facility] 0 Refills, Maintenance, 01/22/22 11:28:00 EDT, Tablet, [facility] # [...] # 30 tablet, 5 Refills, 10/11/21 14:05:00 EDT,[facility] # [facility], 149, [...] 11 Refills, Maintenance, 08/15/21 13:23:00 EST, Capsule, [facility] # 50, [...] 12/27/20 9:18:00 EDT, Route to Pharmacy Electronically, [facility], Partial fill upon patient [...] breast cancer Left, IDC, Active pT1c pN0, ER/GA positive, Her-2/angelito negative, 2012(Confirmed)22, 23 History of [...] 10/18/21 Active Vitamin D Deficiency(Confirmed) Active 1per gastroenterology;pqbpupa3Rxclqugx to gastroenterology no-show for zsjyrptkpdu0zdm3 40%4chronic vopatajoez8XLLB:2 low ohzuj8TOMY test done,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 snzaqlq0mimrdg repeat sdx; injections,fentanyl,morphine,oxycodone er8Dr Oh no surgery re neck,ydye1kkd Dr King,yesterday NO SURGERY, rx corsett,pool10 evaluated by two neurosurgeons,pain ylcumtqz91xpjxv lu13Wsrxfb 24-hour urine thhgzszl42TGZJ increased alpha2 uvpuaktrh60nomggb iron,ferrritin,cderloplasmin; neg HEP a,B,C36hcxxblo Oswestry Disability Index: 48% ( severe disability ) on 04/15/16; updated [place] Back Pain Scale:44 on 04/15/16; updated [place]: 7 on 04/15/1616Initial Oswestry Disability Index: 48% ( severe disability ) on 11/24/14; initial [place] Back Pain Scale: 48 on 11/24/14; initial [place]: 5 on 11/24/1516egd . Bilateral common femoral artery endarterectomy. 3. Left common femoral artery patch angioplasty with PTFE. 4. 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 CURRENT THERAPY: Tamoxifen started in 11/17/14, prior anastrozole 11/2012- 09/2014, zoledronic acid, received 02/2015 and 08/2015.31xjpig11Axouxwbilfqnhv Summary Successful drug eluting stenting of the proximal LAD coronary artery with a 3.5X15 mm plus 3.0X8 mm Xience Alpine stents as described above. The second stent was needed to cover distal edge of th efirst stent in an overlapping fashion. 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
--- OUTSIDE RECORDS SUMMARY | 2022-06-11 12:50 | XMS_ITS | Continuity of Care Document ---
:[address] [facility] Adult Address [address] [place] [address]- Care Team Providers Name Role Phone Christina BAZAN, Chino Dao Primary Care Physician [place] [facility] [place] 05/21/22 - 05/28/22 [facility] [address] [place] [address]- Encounter Diagnosis Benign Essential Hypertension (Discharge Diagnosis) - 05/21/22 Common cold (Discharge Diagnosis) - 05/21/22 Attending Physician: Vicky Perry Allergies, Adverse Reactions, Alerts Substance Reaction Severity Status spironolactone1 Active lisinopril2 Active atorvastatin3 Active thiazide diuretics4 Active amLODIPine5 Active 2dqalv0fxtggdv qbktlwwp3cnue9ogsonmycyxgj8rdzgf Immunizations Given and Recorded Vaccine Date Status [...] atient Refuses 1Result Comment: [facility]: [phone] Comment: [05/27/2017] [facility] [phone] 3Early/Late Reason: Wan to Standard Admin [id number] Comment: [facility]: [phone] Comment: [facility]: [phone] Note: #27Admin Note: historical data Medications aspirin [...] Details, Route to Pharmacy Electronically, [facility] # 50, 149, cm, 04/25/22 [...] # 30 capsule, 5 Refills, [facility] # 50, 149, cm, 02/06/22 9:42:00 EDT, Height, 68.5, kg, 11/19/21 15:42:00 EDT, Dry Weight Start Date: 02/11/22 Status: Orderedfurosemide 20 mg oral tablet 20 mg, 1, tablet, By Mouth, Daily, # 90 tablet, Refills 0, Tot. Refills 0, Maintenance, 02/21/22 12:19:00 EDT, Route to Pharmacy Electronically, [facility] # 50, 149, cm, 02/21/22 [...] Maintenance, 05/20/22 11:57:00 EDT, Tablet, [facility] [...] Refills, Maintenance, 04/08/22 12:28:00 EDT, [facility] # 50, 149, cm, 03/21/22 8:09:00 EDT, Height, 74.4, kg, 02/12/22 14:46:00EDT, Dry Weight Start Date: 04/08/22 Status: Orderedpantoprazole 20 mg oral delayed release tablet See Instructions, TAKE 1 TABLET BY MOUTH DAILY., # 90 tablet, 1 Refills, Maintenance, 05/12/22 18:19:00 EDT, 149, cm, 04/25/22 10:28:00 EDT, Height, 74.4, kg, 02/12/22 14:46:00 EDT, Dry Weight Start Date: 05/12/22 Status: OrderedpredniSONE 20 mg oral tablet 1 tablet = 20 mg, By Mouth, 2 times a day, with food or milk, # 14 tablet, 0 Refills, Maintenance, 05/28/22 10:28:00 EDT, Tablet, [facility] # 50, Partial fill upon patient request if the prescription is for a schedule II opioid drug., 149, cm, 11... Start Date: 05/28/22 Status: Orderedrosuvastatin 10 mg oral capsule 1 capsule = 10 mg, By Mouth, Daily, # 30 capsule, 11 Refills, Maintenance, 08/15/21 13:23:00 EST, Capsule, [facility], Partial [...] 12/27/20 9:18:00 EDT, Route to Pharmacy Electronically, [facility], Partial fill upon patient request if the prescription... Start Date: 12/27/20 Status: OrderedVentolin HFA 108 mcg/inh inhalation aerosol with adapter See Instructions, INHALE 2 PUFFS FOUR TIMES A DAY NEEDED FOR WHEEZING, # 18 Gm, 5 Refills, Maintenance, 05/24/22 11:12:00 EDT, [facility] # 50, 149, cm, 05/21/22 [...] Confirmed Active Limitation due to Confirmed Active pdubiwqeqt74, 16 Opiate use Confirmed Active Gastro-esophageal Confirmed Active reflux EGD [id number] Graves' disease Confirmed Active H/O fracture of wrist Confirmed 12/03/21 Active rt History of peripheral Confirmed 05/17/16 Active artery nwmuam05 H/O compression Confirmed Active fracture of sacrum 2014 iexrmwakzxh29 History of alcohol Confirmed Active abuse20, 21 H/O nausea Confirmed Active History of ischemic Confirmed 12/21/20 Active colitis History of breast Confirmed Active cancer Left, IDC, pT1c pN0, ER/SC positive, Her-2/angelito negative, [id number], 23 History of (NSTEMI) Confirmed 11/10/15 Active 2015 DES24 S/P drug eluting Confirmed Active coronary stent placement Hyperkalemia Confirmed 03/08/19 Active Hyponatremia Confirmed Active Hypothyroidism Confirmed Active following radioiodine Impaired Fasting Confirmed 06/03/07 Active Ylvrhij86 Anemia, iron Confirmed Active deficiency neg colo 2018.neg egd 2020 per gi (greef) no addtl workuyp Low back pain Confirmed Active Failed back syndrome, Confirmed Active lumbar Lung nodules remote Confirmed Active tsneav27, 28, 29 Lymphedema of both Confirmed Active lower extremities Depression, major30, Confirmed Active 31 Fx metatarsal rt Confirmed 04/27/19 Active second Nocturia Confirmed 10/18/21 Active Normocytic Confirmed Active normochromic upxgwr96, 33 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 Thqsckrzgh38 Confirmed Active PAD (peripheral Confirmed Active artery disease)stenting 2015 Chronic prescription Confirmed Active opiate use Multiple falls REFER Confirmed 10/18/21 Active PT Sep 2021 Frequent PVCs brefer Confirmed 10/18/21 Active holter Vitamin D Deficiency Confirmed Active 1per gastroenterology;tmjijhi9Vaejszti to gastroenterology no-show for forfdowronz5wmt7 40%4chronic xqqezzkgpe3ZYFI:2 low ttkqd8WNOG test done,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 tobojlk6jnjdmu repeat sdx; injections,fentanyl,morphine,oxycodone er8Dr Oh no surgery re neck,hfiw9sim Dr King,yesterday NO SURGERY, rx corsett,pool10 evaluated by two neurosurgeons,pain newwnwgp33glslg np16Nnxraa 24-hour urine tgsxfipz22BYQE increased alpha2 ndiyghuew27rrjiwc iron,ferrritin,cderloplasmin; neg HEP a,B,T02cjywykt Oswestry Disability Index: 48% ( severe disability ) on 04/15/16; updated [place] Back Pain Scale:44 on 04/15/16; updated [place]: 7 on 04/15/1616Initial Oswestry Disability Index: 48% ( severe disability ) on 11/24/14; initial [place] Back Pain Scale: 48 on 11/24/14; initial [place]: 5 on 11/24/1516egd . Bilateral common femoral artery endarterectomy. 3. Left common femoral artery patch angioplasty with PTFE. 4. 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 CURRENT THERAPY: Tamoxifen started in 11/17/14, prior anastrozole 11/2012- 09/2014, zoledronic acid, received 02/2015 and 08/2015.85ekopx34Qyslhjukltrive Summary Successful drug eluting stenting of the proximal LAD coronary artery with a 3.5X15 mm plus 3.0X8 mm Xience Alpine stents as described above. The second stent was needed to cover distal edge of th efirst stent in an overlapping fashion. The stents were post-dilated using a 3.5 mm non-compliant balloon.25 now hyperthyroid,exopthalmous;Dr MurphyNoxrpu24kekhjzw pre diabetes increased risk ikrgemtf32ryqdfb23jt stable;recheck 12 bweydl48llzrt lung nodules on neck CT recheck 6 ecxxeq56RUJ1o jqf03PEl1 four low xvhhd89mcgk normal,b12 low fit terst fmv98koccxeu D deficiency;correcting Diagnosis Diagnosis Type Effective Dates Health Clinical Infor mant Status Service Benign Essential Discharge 05/21/22 Hypertension Diagnosis Common cold Discharge 05/21/22 Diagnosis Vital Signs Most recent to oldest 1 2 3 [Reference Range]: Height 149.0 cm 149.0 cm 149.0 cm (05/21/22 9:17 AM) (05/21/22 8:58 AM) (05/21/22 8:44 AM) Weight 74.3 kg (05/21/22 8:44 AM) Oxygen Saturation [94-100 %] 99 % (05/21/22 8:44 AM) Pulse Rate [55-90 bpm] 66 bpm (05/21/22 8:44 AM) Body Mass Index [18.5-24.99 33.47 kg/m2 kg/m2] *>HHI* (05/21/22 8:44 AM) Blood Pressure [90-138/55-84 108/56 mm Hg 80/54 mm Hg 78/ 42 mm Hg mm Hg] (05/21/22 9:17 AM) *L* *L* (05/21/22 8:58 AM) (05/21/22 8:4 4 AM) Mode of Delivery (Oxygen) Room air (05/21/22 8:44 AM) Blood pressure sites Arm, left Arm, left (05/21/22 8:58 AM) (05/21/22 8:44 AM) Temperature Route Temporal (05/21/22 8:44 AM) Weight Obtained Via Standing scale (05/21/22 8:44 AM) Social History Social History Type Response 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
--- OUTSIDE RECORDS SUMMARY | 2022-06-11 12:50 | XMS_ITS | Continuity of Care Document ---
:1945 Author Organization [facility] Adult Address [address] [place] [address]- Care Team Providers Name Role Phone Chino Vasquez MD Primary Care Physician Encounter [facility] [place] Date(s): 10/23/20 - 10/30/20 [facility] [address] [place] [address]- Encounter Diagnosis Benign Essential Hypertension (Discharge Diagnosis) - 10/23/20 Attending Physician: Chino Vasquez MD Allergies, Adverse Reactions, Alerts Substance Reaction Severity Status spironolactone1 Active lisinopril2 Active atorvastatin3 Active amLODIPine4 Active 4hxokt9cemkomw moxzeioi8wfcq8wdkep Immunizations Given and Recorded Vaccine Date Status [...] atient Refuses 1Result Comment: [05/27/2017] [facility] [id number]/Late Reason: Wan to Standard Admin Pffep2Ucbuc Note: #24Admin Note: historical data Medications Aspirin [...] tablet, 0 Refills, Maintenance, 10/03/20 7:38:00 EST,Tablet, [facility] [...] EST, Route to Pharmacy Electronically, [facility] # [facility], 149.9, cm, 06/07/20 11:48:00 EST, Height, 68.9, kg, 07/12/19 14:56:00 EST, Dr... 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 SPOOLER aijpkmw8awidbe repeat sdx; injections,fentanyl,morphine,oxycodone er8Dr Oh no surgery re neck,mqtn1fle Dr King,yesterday NO SURGERY, rx corsett,pool10 evaluated by two neurosurgeons,pain rvhkzhqn39heeps eg72Qrzpmw 24-hour urine auedeeqq16NKMB increased alpha2 pnywikswx26feftma iron,ferrritin,cderloplasmin; neg HEP a,B,D26zhxagdv Oswestry Disability Index: 48% ( severe disability ) on 04/15/16; updated [place] Back Pain Scale:44 on 04/15/16; updated [place]: 7 on 04/15/1616Initial Oswestry Disability Index: 48% ( severe disability ) on 11/24/14; initial [place] Back Pain Scale: 48 on 11/24/14; initial [place]: 5 on 11/24/1516egd . Bilateral common femoral artery endarterectomy. 3. Left common femoral artery patch angioplasty with PTFE. 4. 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 CURRENT THERAPY: Tamoxifen started in 11/17/14, prior anastrozole 11/2012- 09/2014, zoledronic acid, received 02/2015 and 08/2015.77ayacf61Tnljdkotybjiec Summary Successful drug eluting stenting of the proximal LAD coronary artery with a 3.5X15 mm plus 3.0X8 mm Xience Alpine stents as described above. The second stent was needed to cover distal edge of th efirst stent in an overlapping fashion. The stents were post-dilated using a 3.5 mm non-compliant balloon.25 now hyperthyroid,exopthalmous;Dr MurphyNagyak14vblfdqk pre diabetes increased risk vhcshvnw87oyntww63qi stable;recheck 12 yztbch47hrtep lung nodules on neck CT recheck 6 squygb07SJD5r naj60XBg8 four low amfrx31uirh normal,b12 low xifhwk18 fit ter[address] qbd26sqefrwv D deficiency;correcting Diagnosis Diagnosis Type Effective Dates Health Clinical Infor mant Status Service Benign Essential Discharge 10/23/20 Hypertension Diagnosis Vital Signs Most recent to oldest 1 2 3 [Reference Range]: Height 149.9 cm 149.9 cm 149.9 cm (10/23/20 3:23 PM) (10/23/20 3:23 PM) (10/23/20 3:0 4 PM) Weight 73.2 kg (10/23/20 3:04 PM) Oxygen Saturation [94-100 %] 95 % (10/23/20 3:04 PM) Pulse Rate [55-90 bpm] 67 bpm (10/23/20 3:04 PM) Body Mass Index [18.5-24.99] 32.58 *>HHI* (10/23/20 3:04 PM) Blood Pressure [90-138/55-84 mm 130/72 mm Hg 130/74 mm Hg 134/82 mm Hg Hg] (10/23/20 3:23 PM) (10/23/20 3:23 PM) (10/23/20 3:0 4 PM) Mode of Delivery (Oxygen) Room air (10/23/20 3:04 PM) Blood pressure sites Arm, left Arm, right Arm, left (10/23/20 3:23 PM) (10/23/20 3:23 PM) (10/23/20 3:0 4 PM) Weight Obtained Via Standing scale (10/23/20 3:04 PM) Social History Social History Type Response 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
--- OUTSIDE RECORDS SUMMARY | 2022-06-11 12:51 | XMS_ITS | Continuity of Care Document ---
:1945 Author Organization [facility] Address [address] [place] [address]- Care Team Providers Name Role Phone Chino Vasquez MD Primary Care Physician [place] [facility] [place]s): 02/14/20 - 02/21/20 [facility] [address] [place] [address] Attending Physician: Cheryl Mcginnis NP Admitting Physician: Cheryl Mcginnis NP Referring Physician: Chino Vasquez MD Allergies, Adverse Reactions, Alerts Substance Reaction Severity Status atorvastatin1 Active amLODIPine2 Active 4nnfq6eeolj Immunizations Given and Recorded Vaccine Date Status [...] Given P atient Refuses 1Result Comment: [05/27/2017] [facility] [id number]/Late Reason: Wan to Standard Admin Eskuw6Lmhir Note: #24Admin Note: historical data Medications Aspirin = 81 mg, By Mouth, Daily, 0 Refills, Maintenance Start Date: 12/26/11 Status: OrderedBevespi Aerosphere 9 mcg-4.8 mcg/inh inhalation aerosol 2 puffs, Inhalation, 2 times a day, 4 by 28 doses lot [id number] 05-14, # 1 Doses, 11 Refills, Maintenance, 02/12/19 10:52:38 EDT, 2 puffs Inhalation 2 times a day,Instr:4 by 28 doses; lot [id number] 05-14 Start Date: 02/12/19 Status: Orderedcalcium (as [...] 7:20:00 EDT, [facility] 0 Refills, Maintenance, 01/18/20 17:11:00 EDT, Tablet, [facility] # [facility], partial fill upon request, 02/01/20, 149.9, cm, 12/23/19 9:47:00 EDT, Height, 68.9, kg, 07/12/19 14:56:00 EST, Dry Weight Start Date: 01/18/20 Stop Date: 02/15/20 Status: Orderedlevothyroxine 125 mcg (0.125 mg) oral tablet 1 tablet = 125 mcg, By Mouth, Daily, # 30 tablet, 5 Refills, Maintenance, 10/18/19 14:04:00 EDT, Tablet, [facility] # [facility], 149.9, cm, 10/14/19 14:23:00 EDT, Height, 68.9, kg, 07/12/19 14:56:00 EST, Dry Weight Start Date: 10/18/19 Status: Orderedmetoprolol 25 mg oral tablet 25 mg, 1, tablet, By Mouth, 2 times a day, # 60 tablet, Refills 5, Tot. Refills 5, Maintenance, 02/14/20 14:03:00 EDT, Route to Pharmacy Electronically, [facility] # [facility], 149.9, cm, 02/14/20 11:11:00 EDT, Height, 68.9, kg, 07/12/19 14:56:00 EST, Dr... Start Date: 02/14/20 Status: Orderedpravastatin 20 mg oral tablet 20 mg, 1, tablet, By Mouth, Daily, # 30 tablet, Refills 5, Tot. Refills 5, Maintenance, 11/02/19 10:04:00 EDT, Route to Pharmacy Electronically, [facility] # [facility], 149.9, cm, 10/14/19 14:23:00 EDT, Height, 68.9, kg, 07/12/19 14:56:00 EST, Dry Weight Start Date: 11/02/19 Status: OrderedPriLOSEC OTC 20 mg oral delayed release tablet 1 tablet = 20 mg, By Mouth, Daily, # 90 tablet, 0 Refills, Maintenance, 02/08/20 7:20:00 EDT, CR Tablet, [facility] [...] Required Details, Route to Pharmacy Electronically, [facility] # [facility], 149.9, cm, 10/14/19 14:23:00 EDT, Height, 68.9, kg, 1... 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 fkxjriu1azgkgj repeat sdx; injections,fentanyl,morphine,oxycodone er8Dr Oh no surgery re neck,mphs1yjf Dr King,yesterday NO SURGERY, rx corsett,pool10 evaluated by two neurosurgeons,pain izghkazc34zscmy fh50Wxxrtb 24-hour urine dsbxtycb04WYBZ increased alpha2 jcvvrusjw24pitkds iron,ferrritin,cderloplasmin; neg HEP a,B,K69rsxeyef Oswestry Disability Index: 48% ( severe disability ) on 04/15/16; updated [place] Back Pain Scale:44 on 04/15/16; updated [place]: 7 on 04/15/1616Initial Oswestry Disability Index: 48% ( severe disability ) on 11/24/14; initial [place] Back Pain Scale: 48 on 11/24/14; initial [place]: 5 on 11/24/1516egd . Bilateral common femoral artery endarterectomy. 3. Left common femoral artery patch angioplasty with PTFE. 4. 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 CURRENT THERAPY: Tamoxifen started in 11/17/14, prior anastrozole 11/2012- 09/2014, zoledronic acid, received 02/2015 and 08/2015.09mypqj56Hzdbjnmjbvgrao Summary Successful drug eluting stenting of the proximal LAD coronary artery with a 3.5X15 mm plus 3.0X8 mm Xience Alpine stents as described above. The second stent was needed to cover distal edge of th efirst stent in an overlapping fashion. The stents were post-dilated using a 3.5 mm non-compliant balloon.25 now hyperthyroid,exopthalmous;Dr MurphyRgnlcl48elpezko pre diabetes increased risk gymeyhvt16oaggrr77jn stable;recheck 12 xvdyez10aryqu lung nodules on neck CT recheck 6 ixyikp35MKP7o cih86NKl9 four low yradw91dvxx normal,b12 low xmdywh36 [address] ter[address] nmu08sbgkvwr D deficiency;correcting Vital Signs Most recent to oldest [Reference Range]: 1 Height 149.9 cm (02/14/20 11:11 AM) Weight 71.67 kg (02/14/20 11:11 AM) Oxygen Saturation [94-100 %] 96 % (02/14/20 11:11 AM) Pulse Rate [55-90 bpm] 57 bpm (02/14/20 11:11 AM) Body Mass Index [18.5-24.99] 31.9 *>HHI* (02/14/20 11:11 AM) Blood Pressure [90-138/55-84 mm Hg] 120/80 mm Hg (02/14/20 11:11 AM) Blood pressure sites Arm, right (02/14/20 11:11 AM) Weight Obtained Via Patient/family stated (02/14/20 11:11 AM) Social History Social History Type Response 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
--- OUTSIDE RECORDS SUMMARY | 2022-06-11 12:51 | XMS_ITS | Continuity of Care Document ---
:1945 Author Organization [facility] Adult Address [address] [place] [address]- Care Team Providers Name Role Phone Chino Vasquez MD Primary Care Physician Encounter [facility] [place] [place] Date(s): 04/25/21 - 05/02/21 [facility] [address] [place] [address]- Attending Physician: Solange Starr NP Referring Physician: Chino Vasquez MD Allergies, Adverse Reactions, Alerts Substance Reaction Severity Status spironolactone1 Active lisinopril2 Active atorvastatin3 Active amLODIPine4 Active 5qptig6rzitolu pubqfaqq7bxpm6iobsa Immunizations Given and Recorded Vaccine Date Status [...] 1Result Comment: [05/27/2017] [facility] [id number]/Late Reason: Wan to Standard Admin [id number] Note: #24Admin Note: historical data Medications aspirin [...] 04/25/21 14:11:00 EDT, Route to Pharmacy Electronically, [facility] # [facility], 149, cm, 03/29/21 11:00:00EDT, Height, 68.9, kg, 12/21/20 8:52:00 EDT, Dry... Start Date: 04/25/21 Status: Orderedchlorthalidone 25 mg oral tablet See Instructions, TAKE ONE TABLET BY MOUTH EVERY DAY, # 30 tablet, Refills 5, Tot. Refills 5, Maintenance, 02/20/21 1:48:00 EDT, Instructions Replace Required Details, Route to Pharmacy Electronically,[facility] # [facility], 149, cm, 02/09/21 10:03:00 E... Start Date: 02/20/21 Status: OrderedcloNIDine 0.1 mg oral tablet 0.1 mg, 1, tablet, By Mouth, 2 times a day, # 60 tablet, Refills 6, Tot. Refills 6, Maintenance, 04/13/21 5:37:00 EDT, Route to Pharmacy Electronically, [facility] # 50, Partial fill upon patient request if the prescription is for a schedule II op... Start Date: 04/13/21 Status: Orderedclopidogrel 75 mg oral tablet 1, tablet, By Mouth, Daily, # 90 tablet, Refills 0, Route to Pharmacy Electronically, [facility], 149, cm, [...] 0 Refills, Soft Stop, 03/27/21 10:17:00 EDT, [facility] # 50, Partial fill upon patient request if the prescription is for a schedule II opioid drug., 149, cm, 03/27/21 10:16:00 EDT, Height, 68.9, k... Start Date: 03/27/21 Status: OrderedFlovent HFA 110 mcg/inh inhalation aerosol See Instructions, INHALE 2 PUFFS TWO TIMES A DAY, # 12 Gm, 5 Refills, Maintenance, [facility] # 50, 149, cm, 02/09/21 10:03:00 EDT, Height, 68.9, kg, 12/21/20 8:52:00 EDT, Dry Weight Start Date: 02/09/21 Status: OrderedFLUoxetine 40 mg oral capsule See Instructions, TAKE 1 CAPSULE BY MOUTH DAILY., # 30 capsule, 5 Refills, Maintenance, [facility] # 50, 149, [...] 0 Refills, Maintenance, 04/17/21 12:57:00 EDT, Tablet, [facility] [...] EVERY DAY, # 30 tablet, 5 Refills, [facility] # [facility], 149, cm, 03/29/21 11:00:00 EDT, Height, 68.9, kg, 12/21/20 8:52:00 EDT, Dry Weight Start Date: 04/16/21 Status: OrderedoxyCODONE 5 mg oral tablet 5 mg, 1, tablet, By Mouth, Every 6 hours, PRN, # 5 tablet, Refills 0, Tot. Refills 0, Maintenance, Pain , Severe, 12/27/20 9:18:00 EDT, Route to Pharmacy Electronically, [facility], Partial fill upon patient [...] 12/27/20 9:18:00 EDT, Route to Pharmacy Electronically, [facility], Partial fill upon patient request if the prescription... Start Date: 12/27/20 Status: OrderedVentolin HFA 108 mcg/inh inhalation aerosol with adapter See Instructions, INHALE 2 PUFFS FOUR TIMES A DAY NEEDED FOR WHEEZING, # 18 Gm, 2 Refills, Maintenance, [facility] # [facility], 149, cm, 02/09/21 [...] Active use(Confirmed) Vitamin D Deficiency(Confirmed) Active 1per gastroenterology;pkemjml1Lpctdtli to gastroenterology no-show for qutyhdvrgqq8zmm3 40%4chronic cndookgcbe9CLMU:2 low nlezc7IYTG test done,MASS MANAGER ELIGIBILITY fxgvszw1decqtv repeat sdx; injections,fentanyl,morphine,oxycodone er8Dr Oh no surgery re neck,qwcb3nbq Dr King,yesterday NO SURGERY, rx corsett,pool10 evaluated by two neurosurgeons,pain ueiuoixb03cpwzq av90Wvxjxo 24-hour urine kavlceqx04GHHR increased alpha2 zdyuavepr39gxdiet iron,ferrritin,cderloplasmin; neg HEP a,B,V29zmtwaky Oswestry Disability Index: 48% ( severe disability ) on 04/15/16; updated [place] Back Pain Scale:44 on 04/15/16; updated [place]: 7 on 6Initial Oswestry Disability Index: 48% ( severe disability ) on 11/24/14; initial [place] Back Pain Scale: 48 on 11/24/14; initial [place]: 5 on 7egd . Bilateral common femoral artery endarterectomy. 3. Left common femoral artery patch angioplasty with PTFE. 4. 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 CURRENT THERAPY: Tamoxifen started in 11/17/14, prior anastrozole 11/2012- 09/2014, zoledronic acid, received 02/2015 and 08/2015.18asenf87Yruclbsitnarsd Summary Successful drug eluting stenting of the proximal LAD coronary artery with a 3.5X15 mm plus 3.0X8 mm Xience Alpine stents as described above. The second stent was needed to cover distal edge of th efirst stent in an overlapping fashion. 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
--- OUTSIDE RECORDS SUMMARY | 2022-06-11 12:51 | XMS_ITS | Continuity of Care Document ---
:1945 Author Organization [facility] [place] Adult Address [address] [place] [address]- Care Team Providers Name Role Phone Chino Vasquez MD Primary Care Physician Encounter [facility] [place]): 01/09/21 - 02/16/21 [facility] [place] [facility] [address] [place] [address]- Encounter Diagnosis Benign Essential Hypertension (Discharge Diagnosis) - 01/16/21 Attending Physician: Solange Starr NP Referring Physician: Chino Vasquez MD Allergies, Adverse Reactions, Alerts Substance Reaction Severity Status spironolactone1 Active lisinopril2 Active atorvastatin3 Active amLODIPine4 Active 3ecjjp4xfwusml gqjwhiak9acqi8actyb Immunizations Given and Recorded Vaccine Date Status [...] 1Result Comment: [05/27/2017] [facility] [id number]/Late Reason: Wan to Standard Admin [id number] Note: #24Admin Note: historical data Medications aspirin [...] 02/08/21 12:32:00 EDT, [facility] to Pharmacy Electronically, [facility] [...] 12/27/20 9:18:00 EDT, Route to Pharmacy Electronically, [facility], Partial fill upon patient [...] 01/22/21 11:44:00 EDT, [facility] to [facility] Electronically, [facility] [...] 12/27/20 9:18:00 EDT, Route to Pharmacy Electronically, [facility], Partial fill upon patient request if the prescription... Start Date: 12/27/20 Status: OrderedVentolin HFA 108 mcg/inh inhalation aerosol with adapter 2 puffs, Inhalation, 4 times a day, PRN for wheezing, # 1 each, 1 Refills, Maintenance, 01/18/21 11:08:00 EDT, Aerosol, [facility] [...] Active use(Confirmed) Vitamin D Deficiency(Confirmed) Active 1per gastroenterology;gvehiec3Ceyisbut to gastroenterology no-show for ltiolrwklwt5xcq5 40%4chronic iukrtciiok0NPEO:2 low chqdq8YXAP test done,MASS NATURALIZATION EXAMINER tqnmxns4xiwqkv repeat sdx; injections,fentanyl,morphine,oxycodone er8Dr Oh no surgery re neck,xchn9ymh Dr King,yesterday NO SURGERY, rx corsett,pool10 evaluated by two neurosurgeons,pain yuxscflz58sqpmo iy58Njuryp 24-hour urine sodzztad37SZAW increased alpha2 qjbwqyeps33wxzlfw iron,ferrritin,cderloplasmin; neg HEP a,B,Z25zawslbz Oswestry Disability Index: 48% ( severe disability ) on 04/15/16; updated [place] Back Pain Scale:44 on 04/15/16; updated [place]: 7 on 04/15/1616Initial Oswestry Disability Index: 48% ( severe disability ) on 11/24/14; initial [place] Back Pain Scale: 48 on 11/24/14; initial [place]: 5 on 7egd . Bilateral common femoral artery endarterectomy. 3. Left common femoral artery patch angioplasty with PTFE. 4. 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 CURRENT THERAPY: Tamoxifen started in 11/17/14, prior anastrozole 11/2012- 09/2014, zoledronic acid, received 02/2015 and 08/2015.82kjjfr26Isgoumloeyyrve Summary Successful drug eluting stenting of the proximal LAD coronary artery with a 3.5X15 mm plus 3.0X8 mm Xience Alpine stents as described above. The second stent was needed to cover distal edge of th efirst stent in an overlapping fashion. 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
--- OUTSIDE RECORDS SUMMARY | 2022-06-11 12:51 | XMS_ITS | Continuity of Care Document ---
:1945 Author Organization [facility] Adult Address [address] [place] [address]- Care Team Providers Name Role Phone Christina BAZAN, Chino Dao Primary Care Physician Encounter [facility] Date(s): 01/09/22 - 01/16/22 [facility] [address] [place] [address]- Encounter Diagnosis Bilateral leg edema (Discharge Diagnosis) - 01/09/22 Attending Physician: Lilo Brown Allergies, Adverse Reactions, Alerts Substance Reaction Severity Status spironolactone1 Active lisinopril2 Active atorvastatin3 Active amLODIPine4 Active thiazide diuretics5 Active 3dhefp5jguuztw gngimptx1hytv3wtjdz4eygsschnmrmy Immunizations Given and Recorded Vaccine Date Status [...] Not Given P atient Refuses 1Result Comment: [facility]: [phone] Comment: [facility]: [phone] Comment: [facility]: [phone] Comment: [05/27/2017] [facility] [phone] Early/Late Reason: Wan to Standard Admin [id number] Note: #27Admin Note: historical data Medications aspirin [...] 01/14/22 21:32:00 EDT, Route to Pharmacy Electronically, [facility] # [facility], 149, cm, 01/09/22 13:12:00 EDT, Height, 68.5, kg, 11/19/21 15:42:00 EDT, Dry Weight Start Date: 01/14/22 Status: OrderedcloNIDine 0.1 mg oral tablet See Instructions, TAKE ONE TABLET BY MOUTH TWICE A DAY, # 60 tablet, Refills 5, Instructions ReplaceRequired Details, Route to Pharmacy Electronically, [facility] # 50, 149, cm, [...] 30 tablet, 5 Refills, 11/12/21 9:33:00 EDT, [facility] # 50, 149, cm, 10/18/21 12:13:00 EDT, Height, 68.9, kg, 12/21/20 8:52:00 EDT, Dry Weight Start Date: 11/12/21 Status: OrderedFLUoxetine 40 mg oral capsule See Instructions, TAKE 1 CAPSULE BY MOUTH DAILY., # 30 capsule, 5 Refills, 08/15/21 13:23:00 EST, [facility] # 50, 149, cm, 08/15/21 11:10:00 EST, Height, 68.9, kg, 12/21/20 8:52:00 EDT, Dry Weight Start Date: 08/15/21 Status: Orderedfurosemide 20 mg oral tablet 20 mg, 1, tablet, By Mouth, Daily, # 30 tablet, Refills 0, Tot. Refills 0, Maintenance, 01/14/22 11:03:00 EDT, [facility] hours, # 84 tablet, 0 Refills, Maintenance, 01/01/22 9:49:00 EDT,Tablet, [facility] # 50, partial fill upon request, 01/07/22, 149, cm, 12/28/21 15:20:00 EDT, Height, 68.5, kg, 11/19/21 15:42:00 EDT, Dry Weight Start Date: 01/01/22 Stop Date: 01/29/22 Status: OrderedImodium A-D 2 mg, By Mouth, Refills 0, Maintenance, 01/09/21 15:24:00 EDT, Partial fill upon patient request if the prescription is for a schedule II opioid drug. Start Date: 01/09/21 Status: Orderedlevothyroxine 125 mcg (0.125 mg) oral tablet See Instructions, TAKE ONE TABLET BY MOUTH EVERY DAY, # 30 tablet, 5 Refills, 10/11/21 14:05:00 EDT,[facility] # [facility], 149, cm, [...] 11 Refills, Maintenance, 08/15/21 13:23:00 EST, Capsule, [facility] # [...] 12/27/20 9:18:00 EDT, Route to Pharmacy Electronically, [facility], Partial fill upon patient request if the prescription... Start Date: 12/27/20 Status: OrderedVentolin HFA 108 mcg/inh inhalation aerosol with adapter See Instructions, INHALE 2 PUFFS FOUR TIMES A DAY NEEDED FOR WHEEZING, # 18 Gm, 5 Refills, [facility], 149, cm, 11/19/21 14:57:00 [...] 10/18/21 Active Vitamin D Deficiency(Confirmed) Active 1per gastroenterology;tvjqrgj1Fytxyzdn to gastroenterology no-show for baanwyuaubs7hvi0 40%4chronic jtguhdvnbb6CWZM:2 low xqcbc6MWQJ test done,MASS TELEPHONE INSTRUMENT SUPERVISOR cbnnpsz4khqcxj repeat sdx; injections,fentanyl,morphine,oxycodone er8Dr Oh no surgery re neck,zgav9ntv Dr King,yesterday NO SURGERY, rx corsett,pool10 evaluated by two neurosurgeons,pain pafouqlb56sovoq ao46Nnxqct 24-hour urine xramtfdu79DDLY increased alpha2 ezxdbseym52dhjoos iron,ferrritin,cderloplasmin; neg HEP a,B,L99gqnpncy Oswestry Disability Index: 48% ( severe disability ) on 04/15/16; updated [place] Back Pain Scale:44 on 04/15/16; updated [place]: 7 on 04/15/1616Initial Oswestry Disability Index: 48% ( severe disability ) on 11/24/14; initial [place] Back Pain Scale: 48 on 11/24/14; initial [place]: 5 on 7egd . Bilateral common femoral artery endarterectomy. 3. Left common femoral artery patch angioplasty with PTFE. 4. 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 CURRENT THERAPY: Tamoxifen started in 11/17/14, prior anastrozole 11/2012- 09/2014, zoledronic acid, received 02/2015 and 08/2015.18hivbz60Ihulbhtwpgwjnb Summary Successful drug eluting stenting of the proximal LAD coronary artery with a 3.5X15 mm plus 3.0X8 mm Xience Alpine stents as described above. The second stent was needed to cover distal edge of th efirst stent in an overlapping fashion. The stents were post-dilated using a 3.5 mm non-compliant balloon.25 now hyperthyroid,exopthalmous;Dr MurphyDeigyl41pkssncg pre diabetes increased risk xcivdpdz16teikql23ll stable;recheck 12 ziyzgv20ovjvm lung nodules on neck CT recheck 6 mpukzd15TMI7t omw79XPk4 four low ezlif91bhqe normal,b12 low iuaoui44 [address] ean96ldrfvpw D deficiency;correcting Diagnosis Diagnosis Type Effective Dates Health Status Clinical In formant Service Bilateral leg Discharge 01/09/22 edema Diagnosis Vital Signs Most recent to oldest [Reference Range]: 1 Height 149.0 cm (01/09/22 1:12 PM) Weight 72 kg (01/09/22 1:12 PM) Oxygen Saturation [94-100 %] 98 % (01/09/22 1:12 PM) Pulse Rate [55-90 bpm] 71 bpm (01/09/22 1:12 PM) Body Mass Index [18.5-24.99] 32.43 *>HHI* (01/09/22 1:12 PM) Blood Pressure [90-138/55-84 mm Hg] 118/70 mm Hg (01/09/22 1:12 PM) Temperature [96.8-100.4 DegF] 99.8 DegF (01/09/22 1:12 PM) Blood pressure sites Arm, left (01/09/22 1:12 PM) Temperature Route Temporal (01/09/22 1:12 PM) Weight Obtained Via Standing scale (01/09/22 1:12 PM) Social History Social History Type Response 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
--- OUTSIDE RECORDS SUMMARY | 2022-06-11 12:51 | XMS_ITS | Continuity of Care Document ---
:1945 Author Organization [facility] Address [address] [address]- Care Team Providers Name Role Phone Christina BAZAN, Chino Dao Primary Care Physician Encounter [facility] Date(s): 06/22/21 - 10/25/21 [facility] [address] [place] [address] Attending Physician: Bryan Howard MD Admitting Physician: Bryan Howard MD Referring Physician: Matty COUGHLIN, Solange Briceño Allergies, Adverse Reactions, Alerts Substance Reaction Severity Status spironolactone1 Active lisinopril2 Active atorvastatin3 Active thiazide diuretics4 Active amLODIPine5 Active 4iknaj0ewydjjb vmhitugn9aiuv8yaljulsoyigo8agcdp Immunizations Given and Recorded Vaccine Date Status [...] Refuses 1Result Comment: [facility]: [phone] Comment: [facility]: [phone] Comment: [05/27/2017] [facility] [phone]/Late Reason: Wan to Standard Admin [id number] Note: #26Admin Note: historical data Medications aspirin [...] tablet, Refills 0, Route to Pharmacy Electronically, [facility] # 50, 149, cm, 10/16/21 14:48:00 EDT, Height, 68.9, kg, 12/21/20 8:52:00 EDT, Dry Weight Start Date: 10/17/21 Status: OrderedcloNIDine 0.1 mg oral tablet 0.1 [...] # 30 tablet, 5 Refills, 08/15/21 13:24:00 EST,[facility] # [facility], 149, cm, 08/15/21 11:10:00 EST, Height, 68.9, kg, 12/21/20 8:52:00 EDT, Dry Weight Start Date: 08/15/21 Status: OrderedFLUoxetine 40 mg oral capsule See Instructions, TAKE 1 CAPSULE BY MOUTH DAILY., # 30 capsule, 5 Refills, 08/15/21 13:23:00 EST, [facility] # 50, 149, cm, 08/15/21 11:10:00 EST, Height, 68.9, kg, 12/21/20 8:52:00 EDT, Dry Weight Start Date: 08/15/21 Status: Orderedhydrocortisone 2.5% topical cream 1 application, Topically, 3 times a day, # 30 Gm, 1 Refills, Maintenance, 01/09/21 12:15:00 EDT, Cream, [facility] # 50, 1 application Topically 3 times a day, 149.9, cm, 01/09/21 12:01:00 EDT, Height, 68.9, kg, 12/21/20 8:52:00 EDT, Dry Weight Start Date: 01/09/21 Status: OrderedHYDROmorphone 4 mg oral tablet 1 tablet = 4 mg, By Mouth, Every 8 hours, # 84 tablet, 0 Refills, Maintenance, 10/09/21 9:33:00 EDT,Tablet, [facility] # [facility], partial [...] # 30 tablet, 5 Refills, 10/11/21 14:05:00 EDT,[facility] # [facility], 149, cm, [...] 11 Refills, Maintenance, 08/15/21 13:23:00 EST, Capsule, [facility] # [...] Pharmacy Electronically, [facility], Partial fill upon patient [...] 10/18/21 Active Vitamin D Deficiency(Confirmed) Active 1per gastroenterology;pjqtiok4Fohfgiyp to gastroenterology no-show for ygdrwzwxgne6osb0 40%4chronic xxvoqcigsg8NVPY:2 low ekdik5DJOW test done,MASS CUSTODIAL SUPERVISOR stkgzey1twldvd repeat sdx; injections,fentanyl,morphine,oxycodone er8Dr Oh no surgery re neck,lmvd4ets Dr King,yesterday NO SURGERY, rx maryannsett,pool10 evaluated by two neurosurgeons,pain ifujwwwu88kvudu cn06Ixyhxh 24-hour urine cznbtukt74VAHO increased alpha2 shemkqnab16udzrdx iron,ferrritin,cderloplasmin; neg HEP a,B,Y42ktrawwa Oswestry Disability Index: 48% ( severe disability ) on 04/15/16; updated [place] Back Pain Scale:44 on 04/15/16; updated [place]: 7 on 04/15/1616Initial Oswestry Disability Index: 48% ( severe disability ) on 11/24/14; initial [place] Back Pain Scale: 48 on 11/24/14; initial [place]: 5 on 11/24/1516egd . Bilateral common femoral artery endarterectomy. 3. Left common femoral artery patch angioplasty with PTFE. 4. 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 CURRENT THERAPY: Tamoxifen started in 11/17/14, prior anastrozole 11/2012- 09/2014, zoledronic acid, received 02/2015 and 08/2015.78sqlmg66Ndtmhkpvglxmhd Summary Successful drug eluting stenting of the proximal LAD coronary artery with a 3.5X15 mm plus 3.0X8 mm Xience Alpine stents as described above. The second stent was needed to cover distal edge of th efirst stent in an overlapping fashion. 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
--- OUTSIDE RECORDS SUMMARY | 2022-06-11 12:51 | XMS_ITS | Continuity of Care Document ---
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) - 10/16/21 Gastro-esophageal reflux EGD 2011 (Discharge Diagnosis) - 10/16/21 History of (NSTEMI) 2016 TIBURCIO (Discharge Diagnosis) - 10/16/21 Benign Essential Hypertension (Discharge Diagnosis) - 10/16/21 Essential familial hyperlipidemia (Discharge Diagnosis) - 10/16/21 PAD (peripheral artery disease)stenting 2015 (Discharge Diagnosis) - 10/16/21 Anemia, iron deficiency neg colo 2018.neg egd 2020 per gi (greef) no addtl workuyp (Discharge Diagnosis) - 10/16/21 Deficiency of vitamin B12 (Discharge Diagnosis) - 10/16/21 Impaired Fasting Glucose (Discharge Diagnosis) - 10/16/21 Hypothyroidism following radioiodine therapy (Discharge Diagnosis) - 10/16/21 Vitamin D Deficiency (Discharge Diagnosis) - 10/16/21 Hyponatremia (Discharge Diagnosis) - 10/16/21 Major depression in full remission (Discharge Diagnosis) - 10/18/21 Multiple falls REFER PT Sep 2021 (Discharge Diagnosis) - 10/18/21 Nocturia (Discharge Diagnosis) - 10/18/21 Frequent PVCs brefer holter (Discharge Diagnosis) - 10/18/21 Attending Physician: Christina BAZAN, [place] Dao Allergies, Adverse Reactions, Alerts Substance Reaction Severity Status spironolactone1 Active lisinopril2 Active atorvastatin3 Active thiazide diuretics4 Active amLODIPine5 Active 8ebied2fnpzxje jailffwu7fags5vjhinsdkvrhr4nytci Immunizations Given and Recorded Vaccine Date Status [...] Given P atient Refuses 1Result Comment: [facility]: [id number] Comment: [facility]: [id number] Comment: [05/27/2017] [facility] [id number]/Late Reason: Wan to Standard Admin Vysnb2Colsi Note: #26Admin Note: historical data Medications aspirin [...] tablet, Refills 0, Route to Pharmacy Electronically, [facility] # 50, 149, cm, 10/16/21 14:48:00 EDT, Height, 68.9, kg, 12/21/20 8:52:00 EDT, Dry Weight Start Date: 10/17/21 Status: OrderedcloNIDine 0.1 mg oral tablet 0.1 mg, 1, tablet, By Mouth, 2 times a day, # 60 tablet, Refills 6, Tot. Refills 6, Maintenance, 04/13/21 5:37:00 EDT, Route to Pharmacy Electronically, [facility] # [facility], Partial fill upon [...] tablet, 5 Refills, 08/15/21 13:24:00 EST,[facility] # 50, 149, cm, 08/15/21 11:10:00 EST, Height, 68.9, kg, 12/21/20 8:52:00 EDT, Dry Weight Start Date: 08/15/21 Status: OrderedFLUoxetine 40 mg oral capsule See Instructions, TAKE 1 CAPSULE BY MOUTH DAILY., # 30 capsule, 5 Refills, 08/15/21 13:23:00 EST, [facility] # 50, 149, cm, 08/15/21 [...] tablet, 0 Refills, Maintenance, 10/09/21 9:33:00 EDT,Tablet, [facility] [...] tablet, 5 Refills, 10/11/21 14:05:00 EDT,[facility] # 50, 149, cm, 08/15/21 [...] Maintenance, 08/15/21 13:23:00 EST, Capsule, [facility] [...] 12/27/20 9:18:00 EDT, Route to Pharmacy Electronically, [facility], Partial fill upon patient request if the prescription... Start Date: 12/27/20 Status: OrderedVentolin HFA 108 mcg/inh inhalation aerosol with adapter See Instructions, INHALE 2 PUFFS FOUR TIMES A DAY NEEDED FOR WHEEZING, # 18 Gm, 1 Refills, Maintenance, 10/18/21 11:44:00 EDT, [facility] [...] 10/18/21 Active Vitamin D Deficiency(Confirmed) Active 1per gastroenterology;cdvyhfi8Iehwhjkr to gastroenterology no-show for ywuebjirmck0qun7 40%4chronic jkjohblvsw4TDOF:2 low swuwa0TWMK test done,MASS NEGATIVE DEVELOPER dailapj8altjds repeat sdx; injections,fentanyl,morphine,oxycodone er8Dr Oh no surgery re neck,lagg3rfl Dr King,yesterday NO SURGERY, rx corsett,pool10 evaluated by two neurosurgeons,pain kupgpprl64sitra jk76Nizefz 24-hour urine dxwqsycm14AZYN increased alpha2 mtjwhzygb32dcxket iron,ferrritin,cderloplasmin; neg HEP a,B,O56mtoqwyw Oswestry Disability Index: 48% ( severe disability ) on 04/15/16; updated [place] Back Pain Scale:44 on 04/15/16; updated [place]: 7 on 04/15/1616Initial Oswestry Disability Index: 48% ( severe disability ) on 11/24/14; initial [place] Back Pain Scale: 48 on 11/24/14; initial [place]: 5 on 11/24/1516egd . Bilateral common femoral artery endarterectomy. 3. Left common femoral artery patch angioplasty with PTFE. 4. 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 CURRENT THERAPY: Tamoxifen started in 11/17/14, prior anastrozole 11/2012- 09/2014, zoledronic acid, received 02/2015 and 08/2015.66oeqix34Uqvwodgbbfugyn Summary Successful drug eluting stenting of the proximal LAD coronary artery with a 3.5X15 mm plus 3.0X8 mm Xience Alpine stents as described above. The second stent was needed to cover distal edge of th efirst stent in an overlapping fashion. The stents were post-dilated using a 3.5 mm non-compliant balloon.25 now hyperthyroid,exopthalmous;Dr MurphyTceuci53nkqvqgz pre diabetes increased risk pkqypuod57nupmut76do stable;recheck 12 sejvdk03hyvnw lung nodules on neck CT recheck 6 ayvcbc53ZZF8s ily30VIv0 four low uihog50aqqx normal,b12 low kpcjly20 fit terst plb32jrwnzoz D deficiency;correcting Diagnosis Diagnosis Type Effective Dates Health Clinical Infor mant Status Service Chronic Pain Discharge 10/16/21 Syndrome Diagnosis Chronic prescription Discharge 10/16/21 opiate use Diagnosis Coronary artery Discharge 10/16/21 disease Diagnosis PAD (peripheral Discharge 10/16/21 artery Diagnosis disease)stenting 2015 Benign Essential Discharge 10/16/21 Hypertension Diagnosis Essential familial Discharge 10/16/21 hyperlipidemia Diagnosis COPD with asthma Discharge 10/16/21 fev1 40% Diagnosis Gastro-esophageal Discharge 10/16/21 reflux EGD 2011 Diagnosis History of (NSTEMI) Discharge 10/16/212015 TIBURCIO Diagnosis Anemia, iron Discharge 10/16/21 deficiency neg colo Diagnosis 2018.neg egd 2020 per gi (greef) no addtl workuyp Deficiency of Discharge 10/16/21 vitamin B12 Diagnosis Hypothyroidism Discharge 10/16/21 following Diagnosis radioiodine therapy Impaired Fasting Discharge 10/16/21 Glucose Diagnosis Hyponatremia Discharge 10/16/21 Diagnosis Vitamin D Deficiency Discharge 10/16/21 Diagnosis Major depression in Discharge 10/18/21 full remission Diagnosis Multiple falls REFER Discharge 10/18/21 PT Sep 2021 Diagnosis Nocturia Discharge 10/18/21 Diagnosis Frequent PVCs brefer Discharge 10/18/21 holter Diagnosis Vital Signs Most recent to oldest 1 2 3 [Reference Range]: Height 149 cm 149 cm 149 cm (10/18/21 12:13 PM) (10/18/21 11:51 AM) (10/18/21 1 1:23 AM) Weight 70.1 kg 70.1 kg (10/18/21 12:13 PM) (10/18/21 11:23 AM) Oxygen Saturation [94-100 %] 95 % (10/18/21 11:23 AM) Pulse Rate [55-90 bpm] 71 bpm (10/18/21 11:23 AM) Body Mass Index [18.5-24.99] 31.58 *>HHI* (10/18/21 11:23 AM) Blood Pressure [90-138/55-84 134/74 mm Hg 162/74 mm Hg mm Hg] (10/18/21 11:51 AM) *H* (10/18/21 11:23 AM) Respiratory Rate [16-30 14 br/min br/min] *L* (10/18/21 11:23 AM) Temperature [96.8-100.4 97.4 DegF DegF] (10/18/21 11:23 AM) Mode of Delivery (Oxygen) Room air (10/18/21 11:23 AM) Blood pressure sites Arm, left Arm, right (10/18/21 11:51 AM) (10/18/21 11:23 AM) Temperature Route Oral (10/18/21 11:23 AM) Weight Obtained Via Standing scale (10/18/21 11:23 AM) Social History Social History Type Response 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
--- OUTSIDE RECORDS SUMMARY | 2022-06-11 12:51 | XMS_ITS | Continuity of Care Document ---
:1945 Author Organization [address] [place] [address]- Care Team Providers Name Role Phone Christina BAZAN, [place] Dao Primary Care Physician [facility]): [facility]21 - 02/08/[address] [place] [id number]- Attending Physician: Saurabh Coronado Admitting Physician: Saurabh Coronado Referring Physician: AdmtrSaurabh Allergies, Adverse Reactions, Alerts Substance Reaction Severity Status spironolactone1 Active lisinopril2 Active atorvastatin3 Active amLODIPine4 Active 8onqht9daemzud bfhrakod3jmpg2fvdqk Immunizations Given and Recorded Vaccine Date Status [...] Refuses 1Result Comment: [05/27/2017] [facility] [id number]/Late Reason: Wan to Standard Admin Mkjti8Ttibj Note: #24Admin Note: historical data Medications aspirin [...] 02/08/21 12:32:00 EDT, Route to Pharmacy Electronically, [facility] # [facility], REPLACES METOPROLOL, 14... Start Date: 02/08/21 Stop Date: 02/03/22 Status: Orderedchlorthalidone 25 mg oral tablet 25 mg, 1, tablet, By Mouth, Daily, # 30 tablet, Refills 1, Tot. Refills 1, Maintenance, 12/28/20 9:19:00 EDT, [facility] 5 Refills, Maintenance, 08/22/20 18:56:00 EST, Aerosol, [facility] # 50, 149.9, cm, 06/07/20 11:48:00 EST, Height, 68.9, kg, 07/12/19 14:56:00 EST, DryWeight Start Date: 08/22/20 Status: OrderedFLUoxetine 40 mg oral capsule 1 capsule = 40 mg, By Mouth, Daily, # 30 capsule, 5 Refills, Maintenance, 08/13/20 10:39:00 EST, Capsule, [facility] # 50, 149.9, cm, 06/07/20 11:48:00 EST, Height, 68.9, kg, 07/12/19 14:56:00 EST,Dry Weight Start Date: 08/13/20 Status: Orderedhydrocortisone 2.5% topical cream 1 application, Topically, 3 times a day, # 30 Gm, 1 Refills, Maintenance, 01/09/21 12:15:00 EDT, Cream, [facility] # 50, 1 application Topically 3 times a day, 149.9, cm, 01/09/21 12:01:00 EDT, Height, 68.9, kg, 12/21/20 8:52:00 EDT, Dry Weight Start Date: 01/09/21 Status: OrderedHYDROmorphone 4 mg oral tablet 1 tablet = 4 mg, By Mouth, Every 8 hours, # 84 tablet, 0 Refills, Maintenance, 01/16/21 10:45:00 EDT, Tablet, [facility] [...] 5 Refills, Maintenance, 10/10/20 7:25:00 EDT, Tablet, [facility] # 50, 149.9, cm, 08/28/20 14:48:00 EST, Height, 68.9, kg, 07/12/19 14:56:00 EST, Dry Weight Start Date: 10/10/20 Status: OrderedoxyCODONE 5 mg oral tablet 5 mg, 1, tablet, By Mouth, Every 6 hours, PRN, # 5 tablet, Refills 0, Tot. Refills 0, Maintenance, Pain , Severe, 12/27/20 9:18:00 EDT, Route to Pharmacy Electronically, [facility] [...] 01/22/21 11:44:00 EDT, Route to Pharmacy Electronically, [facility] # 50, 149, cm, 01/18/21 11:04:00 EDT, Height, 68.9, kg, 12/21/20 8:52:00 EDT, Dry Weight Start Date: 01/22/21 Status: Orderedrosuvastatin 10 mg oral capsule 1 capsule = 10 mg, By Mouth, Daily, # 30 capsule, 11 Refills, Maintenance, 08/29/20 15:01:00 EST, Capsule, [facility] # 50, [...] 12/27/20 9:18:00 EDT, Route to Pharmacy Electronically, [facility], Partial fill upon patient request if the prescription... Start Date: 12/27/20 Status: OrderedVentolin HFA 108 mcg/inh inhalation aerosol with adapter 2 puffs, Inhalation, 4 times a day, PRN for wheezing, # 1 each, 1 Refills, Maintenance, 01/18/21 11:08:00 EDT, Aerosol, [facility] # 50, 149, cm, 01/18/21 11:04:00 [...] Active use(Confirmed) Vitamin D Deficiency(Confirmed) Active 1per gastroenterology;dmykmyh9Vvawutip to gastroenterology no-show for ovvjecousil6tes5 40%4chronic nvhpvuitqe4VOBS:2 low ejvew4FBJA test done,MASS EQUINE INTERN auwbfwv2nehloy repeat sdx; injections,fentanyl,morphine,oxycodone er8Dr Oh no surgery re neck,mcms3dyp Dr King,yesterday NO SURGERY, rx corsett,pool10 evaluated by two neurosurgeons,pain vyoazlko19ezdxv ai65Ljhvyt 24-hour urine diduwshx85NBKU increased alpha2 tpblvglbr35ccbghy iron,ferrritin,cderloplasmin; neg HEP a,B,M82tlsmhre Oswestry Disability Index: 48% ( severe disability ) on 04/15/16; updated [place] Back Pain Scale:44 on 04/15/16; updated [place]: 7 on 04/15/1616Initial Oswestry Disability Index: 48% ( severe disability ) on 11/24/14; initial [place] Back Pain Scale: 48 on 11/24/14; initial [place]: 5 on 11/24/1516egd . Bilateral common femoral artery endarterectomy. 3. Left common femoral artery patch angioplasty with PTFE. 4. 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 CURRENT THERAPY: Tamoxifen started in 11/17/14, prior anastrozole 11/2012- 09/2014, zoledronic acid, received 02/2015 and 08/2015.29vuoeo38Mtmxdmkjipgukg Summary Successful drug eluting stenting of the proximal LAD coronary artery with a 3.5X15 mm plus 3.0X8 mm Xience Alpine stents as described above. The second stent was needed to cover distal edge of th efirst stent in an overlapping fashion. 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
--- OUTSIDE RECORDS SUMMARY | 2022-06-11 12:51 | XMS_ITS | Continuity of Care Document ---
:1945 Author Organization [facility] Address [address] [place] [address]- Care Team Providers Name Role Phone Christina BAZAN, [place] Dao Primary Care Physician [facility]): 01/17/21 - 02/16/21 [facility] [address] [place] [address]- Allergies, Adverse Reactions, Alerts Substance Reaction Severity Status spironolactone1 Active lisinopril2 Active atorvastatin3 Active amLODIPine4 Active 6buhlo9wxrsnep yjgdsooz0clwz6wsgyr Immunizations Given and Recorded Vaccine Date Status [...] 1Result Comment: [05/27/2017] [facility] [id number]/Late Reason: Wan to Standard Admin Xcqoz7Yunpa Note: #24Admin Note: historical data Medications aspirin 81 mg oral delayed release tablet 81 mg, 1, tablet, By Mouth, Daily, Maintenance, 12/21/20 16:02:00 EDT, ; Start Date: 12/21/20 Status: OrderedBevespi Aerosphere 9 mcg-4.8 mcg/inh inhalation aerosol See Instructions, INHALE 2 PUFFS BY MOUTH TWO TIMES A DAY, # 10.7 Gm, 11 Refills, Maintenance, [facility], 30, INHALE 2 PUFFS BY [...] 02/08/21 12:32:00 EDT, Route to Pharmacy Electronically, [facility] # [facility], REPLACES METOPROLOL, 14... Start Date: 02/08/21 Stop Date: 02/03/22 Status: Orderedchlorthalidone 25 mg oral tablet 25 mg, 1, tablet, By Mouth, Daily, # 30 tablet, Refills 1, Tot. Refills 1, Maintenance, 12/28/20 9:19:00 EDT, Route to Pharmacy Electronically, [facility] # 50, Partial [...] DAY, # 12 Gm, 5 Refills, Maintenance, [facility] # 50, 149, cm, 02/09/21 10:03:00 EDT, Height, 68.9, kg, 12/21/20 8:52:00 EDT, Dry Weight Start Date: 02/09/21 Status: OrderedFLUoxetine 40 mg oral capsule See Instructions, TAKE 1 CAPSULE BY MOUTH DAILY., # 30 capsule, 5 Refills, Maintenance, [facility] # [facility], 149, [...] 0 Refills, Maintenance, 01/16/21 10:45:00 EDT, Tablet, [facility] # [facility], partial [...] 5 Refills, Maintenance, 10/10/20 7:25:00 EDT, Tablet, [facility] # [facility], 149.9, cm, 08/28/20 14:48:00 EST, Height, 68.9, kg, 07/12/19 14:56:00 EST, Dry Weight Start Date: 10/10/20 Status: OrderedoxyCODONE 5 mg oral tablet 5 mg, 1, tablet, By Mouth, Every 6 hours, PRN, # 5 tablet, Refills 0, Tot. Refills 0, Maintenance, Pain , Severe, 12/27/20 9:18:00 EDT, Route to Pharmacy Electronically, [facility], Partial fill upon patient request [...] 01/22/21 11:44:00 EDT, Route to Pharmacy Electronically, [facility] # [facility], 149, cm, 01/18/21 11:04:00 EDT, Height, 68.9, kg, 12/21/20 8:52:00 EDT, Dry Weight Start Date: 01/22/21 Status: Orderedrosuvastatin 10 mg oral capsule 1 capsule = 10 mg, By Mouth, Daily, # 30 capsule, 11 Refills, Maintenance, 08/29/20 15:01:00 EST, Capsule, [facility] # [...] 12/27/20 9:18:00 EDT, Route to Pharmacy Electronically, [facility], Partial fill upon patient request if the prescription... Start Date: 12/27/20 Status: OrderedVentolin HFA 108 mcg/inh inhalation aerosol with adapter 2 puffs, Inhalation, 4 times a day, PRN for wheezing, # 1 each, 1 Refills, Maintenance, 01/18/21 11:08:00 EDT, Aerosol, [facility] # [facility], 149, [...] breast cancer Left, IDC, Active pT1c pN0, ER/[place] positive, Her-2/angelito negative, 2012(Confirmed)22, 23 History of (NSTEMI) 201511/10/15 Active TIBURCIO(Confirmed)24 S/P drug eluting coronary stent Active placement(Confirmed) Hyperkalemia(Confirmed) 03/08/19 Active 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)25 Impaired Fasting Glucose(Confirmed)26 06/03/07 Active Anemia, iron deficiency neg colo Active 2018.neg egd 2021 per gi (greef) no addtl workuyp(Confirmed) Low [...] Active use(Confirmed) Vitamin D Deficiency(Confirmed) Active 1per gastroenterology;tqsqzrg6Blvozqft to gastroenterology no-show for vjvtlfsubqh5knw3 40%4chronic vjoflidwru1AGHC:2 low qioea7HDSE test done,MASS BRICK PAVER mxcrlqb3sxmhre repeat sdx; injections,fentanyl,morphine,oxycodone er8Dr Oh no surgery re neck,kyqw8nte Dr King,yesterday NO SURGERY, rx corsett,pool10 evaluated by two neurosurgeons,pain fdktksdd27geoez go09Ltekxj 24-hour urine aolxyivv70ICUY increased alpha2 qkqemwngh28xlwczl iron,ferrritin,cderloplasmin; neg HEP a,B,E38bgkqvpl Oswestry Disability Index: 48% ( severe disability ) on 04/15/16; updated [place] Back Pain Scale:44 on 04/15/16; updated [place]: 7 on 04/15/1616Initial Oswestry Disability Index: 48% ( severe disability ) on 11/24/14; initial [place] Back Pain Scale: 48 on 11/24/14; initial [place]: 5 on 11/24/1516egd . Bilateral common femoral artery endarterectomy. 3. Left common femoral artery patch angioplasty with PTFE. 4. 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 CURRENT THERAPY: Tamoxifen started in 11/17/14, prior anastrozole 11/2012- 09/2014, zoledronic acid, received 02/2015 and 08/2015.78lqrqz54Bnunlafggxdyjx Summary Successful drug eluting stenting of the proximal LAD coronary artery with a 3.5X15 mm plus 3.0X8 mm Xience Alpine stents as described above. The second stent was needed to cover distal edge of th efirst stent in an overlapping fashion. 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
--- OUTSIDE RECORDS SUMMARY | 2022-06-11 12:51 | XMS_ITS | Continuity of Care Document ---
:1945 Author Organization [facility] Adult Address [address] [place] [address]- Care Team Providers Name Role Phone Christina BAZAN, Chino Dao Primary Care Physician [place] [facility] [place] 03/27/21 - 04/03/21 [facility] [place] [address] [place] [address]- Encounter Diagnosis Tick bite of forearm (Discharge Diagnosis) - 03/27/21 Essential hypertension (Discharge Diagnosis) - 03/27/21 Attending Physician: Not on Staff, Attending MD Referring Physician: Chino Vasquez MD Allergies, Adverse Reactions, Alerts Substance Reaction Severity Status spironolactone1 Active lisinopril2 Active atorvastatin3 Active amLODIPine4 Active 0cssvv1hdrwsqd qzthbida2luyo5fnuml Immunizations Given and Recorded Vaccine Date Status [...] Refuses 1Result Comment: [05/27/2017] [facility] [id number]/Late Reason: Wan to Standard Admin [id number] Note: #24Admin Note: historical data Medications aspirin [...] Replace Required Details, Route to Pharmacy Electronically, [facility] # [facility], Partial fill upon patient request if the... Start Date: 04/03/21 Status: Orderedchlorthalidone 25 mg oral tablet See Instructions, TAKE ONE TABLET BY MOUTH EVERY DAY, # 30 tablet, Refills 5, Tot. Refills 5, Maintenance, 02/20/21 1:48:00 EDT, Instructions Replace Required Details, Route to Pharmacy Electronically,[facility], [...] 0 Refills, Soft Stop, 03/27/21 10:17:00 EDT, [facility] # [...] tablet, 0 Refills, Maintenance, 03/27/21 7:54:00 EDT,Tablet, [facility] # [...] 12/27/20 9:18:00 EDT, Route to Pharmacy Electronically, [facility], Partial fill upon patient request [...] 9:18:00 EDT, Route to Pharmacy Electronically, [facility], Partial fill upon patient request if the prescription... Start Date: 12/27/20 Status: OrderedVentolin HFA 108 mcg/inh inhalation aerosol with adapter See Instructions, INHALE 2 PUFFS FOUR TIMES A DAY NEEDED FOR WHEEZING, # 18 Gm, 2 Refills, Maintenance, [facility] [...] breast cancer Left, IDC, Active pT1c pN0, ER/AR positive, Her-2/angelito negative, 2012(Confirmed)22, 23 History of [...] Active use(Confirmed) Vitamin D Deficiency(Confirmed) Active 1per gastroenterology;umskcvr0Ucbjxpjz to gastroenterology no-show for pqmcbqcjwpq8eei5 40%4chronic gtkoojfnoj9KMZX:2 low wyexk7INEI test done,MASS LECTURER OF [place] wrfgrye1vmiyvb repeat sdx; injections,fentanyl,morphine,oxycodone er8Dr Oh no surgery re neck,trbv2zef Dr King,yesterday NO SURGERY, rx corsett,pool10 evaluated by two neurosurgeons,pain aoybyfyx59ffyjo gw89Blpaef 24-hour urine tnxzvgbb36FLVM increased alpha2 gazdmyhcz73rfqefv iron,ferrritin,cderloplasmin; neg HEP a,B,G23ocxdsyn Oswestry Disability Index: 48% ( severe disability ) on 04/15/16; updated [place] Back Pain Scale:44 on 04/15/16; updated [place]: 7 on 6Initial Oswestry Disability Index: 48% ( severe disability ) on 11/24/14; initial [place] Back Pain Scale: 48 on 11/24/14; initial [place]: 5 on 7egd . Bilateral common femoral artery endarterectomy. 3. Left common femoral artery patch angioplasty with PTFE. 4. 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 CURRENT THERAPY: Tamoxifen started in 11/17/14, prior anastrozole 11/2012- 09/2014, zoledronic acid, received 02/2015 and 08/2015.51aonki99Ratmfukykqgxjx Summary Successful drug eluting stenting of the proximal LAD coronary artery with a 3.5X15 mm plus 3.0X8 mm Xience Alpine stents as described above. The second stent was needed to cover distal edge of th efirst stent in an overlapping fashion. The stents were post-dilated using a 3.5 mm non-compliant balloon.25 now hyperthyroid,exopthalmous;Dr MurphyJhqqgy73nxjdkkr pre diabetes increased risk jvcuthvn14segfji65yk stable;recheck 12 efimyx38cklfl lung nodules on neck CT recheck 6 dplbce70NIP3v gvg34CGv0 four low vtpxq70zhxc normal,b12 low nfhorh25 fit terst bih37iluffry D deficiency;correcting Diagnosis Diagnosis Type Effective Dates Health Clinical Infor mant Status Service Tick bite of Discharge 03/27/21 forearm Diagnosis Essential Discharge 03/27/21 hypertension Diagnosis Vital Signs Most recent to oldest 1 2 3 [Reference Range]: Height 149 cm 149 cm 149 cm (03/27/21 10:16 AM) (03/27/21 10:12 AM) (03/27/21 1 0:01 AM) Weight 70.1 kg (03/27/21 10:01 AM) Oxygen Saturation [94-100 %] 97 % (03/27/21 10:01 AM) Pulse Rate [55-90 bpm] 64 bpm (03/27/21 10:01 AM) Body Mass Index [18.5-24.99] 31.58 *>HHI* (03/27/21 10:01 AM) Blood Pressure [90-138/55-84 160/70 mm Hg 184/76 mm Hg 171 /74 mm Hg mm Hg] *H* *H* *H* (03/27/21 10:16 AM) (03/27/21 10:12 AM) (03/27/21 1 0:01 AM) Temperature [96.8-100.4 98.4 DegF DegF] (03/27/21 10:01 AM) Blood pressure sites Arm, right Arm, right (03/27/21 10:12 AM) (03/27/21 10:01 AM) Temperature Route Oral (03/27/21 10:01 AM) Social History Social History Type Response 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
--- OUTSIDE RECORDS SUMMARY | 2022-06-11 12:51 | XMS_ITS | Continuity of Care Document ---
:1945 Author Organization [facility] p Address [address] [place] [address], [address] [place] [address]- Care Team Providers Name Role Phone Christina BAZAN, Chino Dao Primary Care Physician [place] [facility] [place]/19/21 - 12/19/21 [facility] [address] [place] [address], [address] [place] [id number] Attending Physician: Saurabh Coronado Admitting Physician: AdmtrSaurabh Referring Physician: Admtr, Ar8 Allergies, Adverse Reactions, Alerts Substance Reaction Severity Status spironolactone1 Active lisinopril2 Active atorvastatin3 Active thiazide diuretics4 Active amLODIPine5 Active 7gslhv1lhrijsu axqwzhzx1igos5qvtbhwbsqptv1lsevr Immunizations Given and Recorded Vaccine Date Status [...] atient Refuses 1Result Comment: [facility]: [phone] Comment: [facility]: [id number] Comment: [facility]: [phone] Comment: [05/27/2017] [facility] [phone] Early/Late Reason: Wan to Standard Admin [id number] Note: #27Admin Note: historical data Medications aspirin [...] tablet, Refills 0, Route to Pharmacy Electronically, [facility] # 50, 149, cm, 10/16/21 14:48:00 [...] 12/27/20 9:18:00 EDT, Route to Pharmacy Electronically, [facility], Partial fill upon [...] 10/18/21 Active Vitamin D Deficiency(Confirmed) Active 1per gastroenterology;jyqnghb1Zrbotffh to gastroenterology no-show for fzlpfocwxta8ynr7 40%4chronic ypzxaeiehc6MVGZ:2 low atjbt8JIFP test done,MASS BIOCHEMICAL DEVELOPMENT ENGINEER yioanib3mhwcja repeat sdx; injections,fentanyl,morphine,oxycodone er8Dr Oh no surgery re neck,qffs2yat Dr King,yesterday NO SURGERY, rx corsett,pool10 evaluated by two neurosurgeons,pain vlbuozrb47sdkrm pw20Nancwq 24-hour urine revbacix53MADG increased alpha2 riphsmqfs99ovopde iron,ferrritin,cderloplasmin; neg HEP a,B,J86cbbtauh Oswestry Disability Index: 48% ( severe disability ) on 04/15/16; updated [place] Back Pain Scale:44 on 04/15/16; updated [place]: 7 on 04/15/1616Initial Oswestry Disability Index: 48% ( severe disability ) on 11/24/14; initial [place] Back Pain Scale: 48 on 11/24/14; initial [place]: 5 on 11/24/1516egd . Bilateral common femoral artery endarterectomy. 3. Left common femoral artery patch angioplasty with PTFE. 4. 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 CURRENT THERAPY: Tamoxifen started in 11/17/14, prior anastrozole 11/2012- 09/2014, zoledronic acid, received 02/2015 and 08/2015.38gfjkz81Kqouvduzboiamm Summary Successful drug eluting stenting of the proximal LAD coronary artery with a 3.5X15 mm plus 3.0X8 mm Xience Alpine stents as described above. The second stent was needed to cover distal edge of th efirst stent in an overlapping fashion. 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
--- OUTSIDE RECORDS SUMMARY | 2022-06-11 12:52 | XMS_ITS | Continuity of Care Document ---
:1945 Author Organization [facility] Adult Address [address] [place] [address]- Care Team Providers Name Role Phone Christina BAZAN, Chino Dao Primary Care Physician Encounter [facility] Date(s): 02/12/21 - 03/14/21 [facility] [address] [place] [address]- Allergies, Adverse Reactions, Alerts Substance Reaction Severity Status spironolactone1 Active lisinopril2 Active atorvastatin3 Active amLODIPine4 Active 3joaem3adaoquq ehsgjlcz1pbbt8hixiy Immunizations Given and Recorded Vaccine Date Status [...] Comment: [05/27/2017] [facility] [id number]/Late Reason: Wan to Standard Admin [id number] Note: #24Admin Note: historical data Medications aspirin 81 mg oral delayed release tablet 81 mg, 1, tablet, By Mouth, Daily, Maintenance, 12/21/20 16:02:00 EDT, ; Start Date: 12/21/20 Status: OrderedBevespi Aerosphere 9 mcg-4.8 mcg/inh inhalation aerosol See Instructions, INHALE 2 PUFFS BY MOUTH TWO TIMES A DAY, # 10.7 Gm, 11 Refills, Maintenance, [facility] # [facility], 30, INHALE 2 PUFFS BY [...] 02/08/21 12:32:00 EDT, Route to Pharmacy Electronically, [facility] # [facility], REPLACES METOPROLOL, [...] hours, # 84 tablet, 0 Refills, Maintenance, 02/27/21 11:09:00 EDT, Tablet, [facility], partial fill upon request, 03/06/21, 149, cm, 02/09/21 10:03:00 EDT, Height, 68.9, kg, 12/21/20 8:52:00 EDT, Dry Weight Start Date: 02/27/21 Stop Date: 03/27/21 Status: OrderedImodium A-D 2 mg, By Mouth, [...] Route to Pharmacy Electronically, [facility], Partial fill upon patient request [...] Route to Pharmacy Electronically, [facility], Partial fill upon patient request [...] 5 Refills, Maintenance, 11/06/20 16:02:00 EDT, Tablet, [facility] # [...] Active use(Confirmed) Vitamin D Deficiency(Confirmed) Active 1per gastroenterology;hzonucw4Mszcswxz to gastroenterology no-show for nayjxfngmsj3zyn9 40%4chronic lmlhpjmtyi1FMZD:2 low zeaco2XWHM test done,MASS TRAIN STARTER uuvuoxs6wpjohi repeat sdx; injections,fentanyl,morphine,oxycodone er8Dr Oh no surgery re neck,lkqw2gsw Dr King,yesterday NO SURGERY, rx corsett,pool10 evaluated by two neurosurgeons,pain lqnjwose19njwjh am06Vldpqm 24-hour urine oonxuubr70WVPK increased alpha2 nfbhvffnx52ekrdrc iron,ferrritin,cderloplasmin; neg HEP a,B,Y20ytpzifw Oswestry Disability Index: 48% ( severe disability ) on 04/15/16; updated [place] Back Pain Scale:44 on 04/15/16; updated [place]: 7 on 04/15/1616Initial Oswestry Disability Index: 48% ( severe disability ) on 11/24/14; initial [place] Back Pain Scale: 48 on 11/24/14; initial [place]: 5 on 11/24/1516egd . Bilateral common femoral artery endarterectomy. 3. Left common femoral artery patch angioplasty with PTFE. 4. 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 CURRENT THERAPY: Tamoxifen started in 11/17/14, prior anastrozole 11/2012- 09/2014, zoledronic acid, received 02/2015 and 08/2015.55slivb07Xnqicvmzjqxvmk Summary Successful drug eluting stenting of the proximal LAD coronary artery with a 3.5X15 mm plus 3.0X8 mm Xience Alpine stents as described above. The second stent was needed to cover distal edge of th efirst stent in an overlapping fashion. 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
--- OUTSIDE RECORDS SUMMARY | 2022-06-11 12:52 | XMS_ITS | Continuity of Care Document ---
:1945 Author Organization [facility] Address [address] [place] [address]- Care Team Providers Name Role Phone Christina BAZAN, Chino Dao Primary Care Physician Encounter [facility] [place] Date(s): 12/21/20 - 12/27/[address] [address]- Encounter Diagnosis Benign Essential Hypertension (Discharge Diagnosis) - 12/24/20 Discharge Disposition: A-D/C Home Attending Physician: Avelino Perez MD Admitting Physician: Avelino Perez MD Referring Physician: Not on Staff, Referring MD Allergies, Adverse Reactions, Alerts Substance Reaction Severity Status spironolactone1 Active lisinopril2 Active atorvastatin3 Active amLODIPine4 Active 1twvtf3qdkvfjk qhwnpbgp1crny4cuyqa Immunizations Given and Recorded Vaccine Date Status [...] Given P atient Refuses 1Result Comment: [05/27/2017] [facility] [id number]/Late Reason: Wan to Standard Admin Fcwji6Pkoek Note: #24Admin Note: historical data Medications aspirin [...] 10/26/20 14:56:00 EDT, Route to Pharmacy Electronically, [facility], Partial fill upon patient request if the prescription is for a schedule II opioid feliberto... Start Date: 10/26/20 Status: Ordereddocusate sodium 100 mg oral capsule 100 mg, 1, capsule, By Mouth, Daily, PRN, Maintenance, as needed for constipation, 12/21/20 16:05:00EDT, ; Start Date: 12/21/20 Status: OrderedFlovent HFA 110 mcg/inh inhalation aerosol 2 puffs, Inhalation, 2 times a day, # 1 each, 5 Refills, Maintenance, 08/22/20 18:56:00 EST, Aerosol, [facility], 149.9, cm, 06/07/20 11:48:00 EST, Height, 68.9, kg, 07/12/19 14:56:00 EST, DryWeight Start Date: 08/22/20 Status: OrderedFLUoxetine 40 mg oral capsule 1 capsule = 40 mg, By Mouth, Daily, # 30 capsule, 5 Refills, Maintenance, 08/13/20 10:39:00 EST, Capsule, [facility], 149.9, cm, 06/07/20 [...] 0 Refills, Maintenance, 11/29/20 14:56:00 EDT, Tablet, [facility] # [facility], partial fill upon request, 05/11/21, 149.9, cm, 11/13/20 11:13:00 EDT,Height, 68.9, kg, 07/12/19 14:56:00 EST, Dry Weight Start Date: 11/29/20 Stop Date: 12/27/20 Status: Orderedlevothyroxine 125 mcg (0.125 mg) oral tablet 1 tablet = 125 mcg, By Mouth, Daily, # 30 tablet, 5 Refills, Maintenance, 10/10/20 7:25:00 EDT, Tablet, [facility], 149.9, cm, 08/28/20 14:48:00 EST, Height, 68.9, kg, 07/12/19 14:56:00 EST, Dry Weight Start Date: 10/10/20 Status: Orderedmetoprolol 25 mg oral tablet 25 mg, 1, tablet, By Mouth, 2 times a day, # 60 tablet, Refills 2, Tot. Refills 2, Maintenance, 11/13/20 16:41:00 EDT, Route to Pharmacy Electronically, [facility], 149.9, cm, 11/13/20 11:13:00 EDT, Height, 68.9, kg, 07/12/19 14:56:00 ESTDr... Start Date: 11/13/20 Status: Orderedmetoprolol 25 mg oral tablet 25 mg, Tablet, By Mouth, 12/27/20 9:00:00 EDT Start Date: 12/27/20 Stop Date: 12/27/20 Status: CompletedoxyCODONE 5 mg oral tablet 5 mg, Tablet, By Mouth, Every 6 hours, PRN for Pain , Severe, Routine, 12/25/20 9:03:00 EDT Start Date: 12/25/20 Stop Date: 12/27/20 Status: DiscontinuedoxyCODONE 5 mg oral tablet 5 mg, 1, tablet, By Mouth, Every 6 hours, PRN, # 5 tablet, Refills 0, Tot. Refills 0, Maintenance, Pain , Severe, 12/27/20 9:18:00 EDT, Route to Pharmacy Electronically, [facility], Partial fill upon patient request if the prescription i... Start Date: 12/27/20 Status: OrderedPlavix 75 mg oral tablet 75 mg, 1, tablet, By Mouth, Daily, # 30 tablet, Refills 0, Tot. Refills 0, Maintenance, 12/27/20 9:18:00 EDT, Route to Pharmacy Electronically, [facility], Partial fill upon patient request if the prescription is for a schedule II opioid... Start Date: 12/27/20 Status: OrderedPriLOSEC OTC 20 mg oral delayed release tablet 1 tablet = 20 mg, By Mouth, Daily, # 90 tablet, 0 Refills, Maintenance, 11/06/20 16:02:00 EDT, CR Tablet, [facility], 149.9, cm, 10/26/20 14:49:00 EDT, Height, 68.9, kg, 07/12/19 14:56:00 EST,Dry Weight Start Date: 11/06/20 Status: Orderedrosuvastatin 10 mg oral capsule 1 capsule = 10 mg, By Mouth, Daily, # 30 capsule, 11 Refills, Maintenance, 08/29/20 15:01:00 EST, Capsule, [facility], Partial fill upon patient request if the prescription is for a schedule II opioid drug., 149.9, cm, 08/28/20 14:48:00 EST,... Start Date: 08/29/20 Status: OrderedTylenol 325 mg oral tablet 650 mg, Tablet, By Mouth, 12/27/20 9:00:00 EDT Start Date: 12/27/20 Stop Date: 12/27/20 Status: CompletedTylenol 325 mg oral tablet 650 mg, 2, tablet, By Mouth, Every 4 hours, PRN, # 24 tablet, Refills 0, Tot. Refills 0, Maintenance, Pain , Mild, 12/27/20 9:18:00 EDT, Route to Pharmacy Electronically, [facility], Partial fill upon patient request if the prescription... Start Date: 12/27/20 Status: OrderedVentolin HFA 108 mcg/inh inhalation aerosol with adapter 2 puffs, Inhalation, 4 times a day, PRN for wheezing, # 1 each, 5 Refills, Maintenance, 10/18/20 9:01:00 EDT, Aerosol, [facility], 149.9, cm, 08/28/20 [...] Active use(Confirmed) Vitamin D Deficiency(Confirmed) Active 1per gastroenterology;rptrxpn6Voyzogkj to gastroenterology no-show for fvwodxvbyvj4fek4 40%4chronic vbmbvwmwmh9AOPP:2 low pphnu2KNQT test done,MASS FIBERGLASS AUTOBODY REPAIRER jpywoth6gzvwzf repeat sdx; injections,fentanyl,morphine,oxycodone er8Dr Oh no surgery re neck,rskd1ozr Dr King,yesterday NO SURGERY, rx corsett,pool10 evaluated by two neurosurgeons,pain woprnwki45nogth zp92Osgevu 24-hour urine deimncmi41ALXG increased alpha2 efzlxvwqq21kwbtmn iron,ferrritin,cderloplasmin; neg HEP a,B,I14xbstdke Oswestry Disability Index: 48% ( severe disability ) on 04/15/16; updated [place] Back Pain Scale:44 on 04/15/16; updated [place]: 7 on 04/15/1616Initial [place]estry Disability Index: 48% ( severe disability ) on 11/24/14; initial [place] Back Pain Scale: 48 on 11/24/14; initial [place]: 5 on 11/24/1516egd . Bilateral common femoral artery endarterectomy. 3. Left common femoral artery patch angioplasty with PTFE. 4. 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 CURRENT THERAPY: Tamoxifen started in 11/17/14, prior anastrozole 11/2012- 09/2014, zoledronic acid, received 02/2015 and 08/2015.30hvxeb31Tychofvdazdhna Summary Successful drug eluting stenting of the proximal LAD coronary artery with a 3.5X15 mm plus 3.0X8 mm Xience Alpine stents as described above. The second stent was needed to cover distal edge of th efirst stent in an overlapping fashion. The stents were post-dilated using a 3.5 mm non-compliant balloon.25 now hyperthyroid,exopthalmous;Dr MurphyPoenwp85ndbkcsz pre diabetes increased risk sdcxgmxl78ouuctj16pb stable;recheck 12 oaksni08hrvja lung nodules on neck CT recheck 6 zvndsd24QOS1t kdf11ADw7 four low rwewh99kvwj normal,b12 low vcrpym74 fit terst cpw10prjpijm D deficiency;correcting Diagnosis Diagnosis Type Effective Dates Health Clinical Infor mant Status Service Benign Essential Discharge 12/24/20 Hypertension Diagnosis Procedures Procedure Date Related Diagnosis Body Site Status Cecostomy and entrectomy anastamosis1 12/21/[address] of abdomen and pelvis2 12/21/20 Co mpleted Echocardiogram ef 55-60%3 12/21/20 Co mpleted Cecectomy Completed Enterectomy with anastomosis Completed 1Cecectomy ([id number]). Enterectomy with tbkgekinfms46. Focal irregular wall thickening of the proximal ascending colon and cecum concerning for malignancy. Focal colitis is also possible. 2. Prominent appendix measuring up to 0.7 cm with mild adjacent fat stranding, likely reactive. 3. Stable pulmonary nodules measuring up to 3 mm that require no further follow- up per Fleischner recommendations.3The left ventricle is grossly normal in size. There is moderate concentric hypertrophy. The ejection fraction is 55-60%. No obvious wall motion abnormalities seen but cannot be excluded based on current study. Diastolic function was indeterminant. No LV thrombus visualized but consider definity for further evaluation. The left atrial size is at the upper limit of normal. The right ventricle is poorly visualized. The right atrium is normal in size. There appears to be a trivial pericardial effusion. Recommendation No LV thrombus visualized but consider definity for further evaluation. Results Radiology Reports Exam Date Time Procedure Performing Provider Status 12/23/20 12:02 PM Abdomen Comp Inc Decub and/or [place] (Verified) Erect Notes:(Abdomen Comp Inc Decub and/or Erect) Reason For Exam: Nausea/Vomiting RESULT: Abdomen Comp Inc Decub and/or Erect Supine and upright views of the abdomen and pelvis dated December 23, 2020 at 1204 hours. Comparison films are from July 08, 2014. HISTORY: Nausea and vomiting. FINDINGS: This examination shows mildly prominent loops of small bowel prominently in the left side of the abdomen. There are differential air-fluid levels present. No pneumatosis or free air is identified. Postoperative changes are noted in the lumbosacral junction. There is evidence of prior sacral vertebral plasties. Calcified uterine fibroids are noted. IMPRESSION: Findings are consistent with an early or mild small bowel obstruction. No free air is identified. Examination [address]. Thank you for allowing me to participate in the care of this patient. WSN: [id number] Ordering Physician: Radha Alvarenga Dictated By: Osorio Lal MD Dictated Date/Time: 12/23/20 12:07 p Reviewed By: Osorio Lal MD Signed By: Osorio Lal MD Signed Date/Time: 12/23/20 12:07 pm Transcribed By: MARIBEL Transcribed Date/Time: 12/23/20 12:06 pm Vital Signs Most recent to oldest 1 2 3 [Reference Range]: Oxygen Saturation [94-100 %] 99 % 100 % 99 % (12/27/20 11:00 AM) (12/27/20 7:00 AM) (12/27/20 4:00 AM) Pulse Rate [55-90 bpm] 58 bpm 64 bpm 64 bpm (12/27/20 11:00 AM) (12/27/20 8:17 AM) (12/27/20 7:00 AM) Blood Pressure [90-138/55-84 mm 154/66 mm Hg 184/62 mm Hg 184/62 mm Hg 1 Hg] *H* *H* *H* (12/27/20 11:00 AM) (12/27/20 8:17 AM) (12/27/20 7:00 AM) Respiratory Rate [16-30 br/min] 18 br/min 17 br/min 17 br/min (12/27/20 11:00 AM) (12/27/20 9:17 AM) (12/27/20 8:21 AM) Temperature [96.8-100.4 DegF] 99.0 DegF 99.1 DegF 98 .1 DegF (12/27/20 11:00 AM) (12/27/20 7:00 AM) (12/27/20 4:00 AM) Liters per Minute 2 L/min 2 L/min 2 L/min (12/21/20 2:00 PM) (12/21/20 1:45 PM) (12/21/20 1:3 0 PM) Mode of Delivery (Oxygen) Room air Room air Room a ir (12/27/20 11:00 AM) (12/27/20 7:00 AM) (12/27/20 4:00 AM) Blood pressure sites Arm, right Arm, right Arm, right (12/27/20 11:00 AM) (12/27/20 7:00 AM) (12/27/20 4:00 AM) Temperature Route Oral Oral Oral (12/27/20 11:00 AM) (12/27/20 7:00 AM) (12/27/20 4:00 AM) Dry Weight 68.9 kg (12/21/20 8:52 AM) 1Result Comment: R.N. notified S.P. 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
--- OUTSIDE RECORDS SUMMARY | 2022-06-11 12:52 | XMS_ITS | Continuity of Care Document ---
:1945 Author Organization [facility] Address [address] [place] [address]- Care Team Providers Name Role Phone Chino Vasquez MD Primary Care Physician Encounter [facility] [place] Date(s): 07/08/19 - 07/15/19 [facility] [address] [place] [address]- [facility] Attending Physician: Cheryl Mcginnis NP Admitting Physician: Cheryl Mcginnis NP Referring Physician: Chino Vasquez MD Allergies, Adverse Reactions, Alerts Substance Reaction Severity Status atorvastatin1 Active 1achy Immunizations Given and Recorded Vaccine Date Status Refusal Reason influenza virus vaccine, inactivated 04/14/18 Recorded influenza [...] Given P atient Refuses 1Result Comment: [05/27/2017] [facility] [id number]/Late Reason: Wan to Standard Admin Wonef3Lsjic Note: #24Admin Note: historical data Medications amLODIPine 10 mg oral tablet 10 mg, 1, tablet, By Mouth, Daily, # 30 tablet, Refills 11, Tot. Refills 11, Maintenance, 08/10/18 11:54:38 EST, Route to Pharmacy Electronically, [id number], [facility] Start Date: 08/10/18 Status: OrderedAspirin = 81 mg, By Mouth, Daily, 0 Refills, Maintenance Start Date: 12/26/11 Status: OrderedBevespi Aerosphere 9 mcg-4.8 mcg/inh inhalation aerosol 2 puffs, Inhalation, 2 times a day, 4 by 28 doses lot [id number] 05-14, # 1 Doses, 11 Refills, Maintenance, 02/12/19 10:52:38 EDT, 2 puffs Inhalation 2 times a day,Instr:4 by 28 doses; lot [id number] 05-14 Start Date: 02/12/19 Status: OrderedFlovent HFA [...] tablet, 0 Refills, Maintenance, 07/13/19 9:03:00 EST,Tablet, [facility], [...] 06/14/19 13:25:57 EST, Route to Pharmacy Electronically, [id number], [facility] Start Date: 06/14/19 Status: OrderedPlavix 75 mg oral tablet 75 mg, 1, tablet, By Mouth, Daily in AM, # 30 tablet, Refills 5, Tot. Refills 5, Maintenance, 02/17/19 10:47:40 EDT, Route to Pharmacy Electronically, [id number], [facility] Start Date: 02/17/19 [...] Status Health Status Informant Abnormal gait(Confirmed) Active Frozen shoulder syndrome(Confirmed) 02/12/19 Active Memory loss(Confirmed) Active Benign Essential Active [...] vitamin B12(Confirmed)13 Active Coronary artery disease(Confirmed) Active Diverticulosis, 07/12/19 Active sigmoid;colonoscopy(Confirmed) Essential familial Active hyperlipidemia(Confirmed) Ex-smoker, 1/2 ppd X23 years, quit Active 1997(Confirmed) Excessive weight gain(Confirmed)14 Active Fatty liver(Confirmed)15, 16 Active Limitation due to Active disability(Confirmed)17, 18 Gastro-esophageal reflux EGD Active 2011(Confirmed)19 Graves' disease Active opthalmopathy(Confirmed) History of peripheral artery 05/17/16 Active bypass(Confirmed)20 H/O compression fracture of sacrum Active 2014 anastranole(Confirmed)21 Use of opiates for therapeutic Active purposes(Confirmed) History of alcohol abuse(Confirmed)22, Active 23 H/O nausea(Confirmed) Active History of (NSTEMI) 201511/10/15 Active TIBURCIO(Confirmed)24 Hypercholesteremia(Confirmed) Active Hyperkalemia(Confirmed) 03/08/19 Active 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)25 Impaired Fasting Glucose(Confirmed)26 06/03/07 Active Infiltrating ductal carcinoma of Active breast left;lumpectomy 2012/xrt 2012(Confirmed)27, 28 [facility] current use of opiate Active analgesic(Confirmed)29, 30, [...] Active 42 Vitamin D Deficiency(Confirmed) Active 1per gastroenterology;jgobeii3Vpggpxzk to gastroenterology no-show for dnnutluvafi7XEG8e cfn5CKq9 four low kjcvl4jty7 40%6chronic exlrmrdxzh6XHZZ:2 low lvlge7WCWD test done,MASS PROTECTION MGR ieveljc4xualwv repeat sdx; injections,fentanyl,morphine,oxycodone er10Dr Oh no surgery re neck,nemt56vmr Dr King,yesterday NO SURGERY, rx corsett,nccv50gdqbiqdje by two neurosurgeons,pain trqhofid07fobyh ut94Aiukrs 24-hour urine mkpljawj21FPMF increased alpha2 tdtdgmryq05gxaaej iron,ferrritin,cderloplasmin; neg HEP a,B,C17 updated Oswestry Disability Index: 48% ( severe disability ) on 04/15/16; updated [place] Back Pain Scale:44 on 04/15/16; updated [place]: 7 on 04/15/1618Initial Oswestry Disability Index: 48% ( severe disability ) on 11/24/14; initial [place] Back Pain Scale: 48 on 11/24/14; initial [place]: 5 on 11/24/1518egd [id number]. Bilateral common femoral artery endarterectomy. 3. Left common femoral artery patch angioplasty with PTFE. 4. Lrsy-yt-evpoc femoral-femoral bypass with 8-mm ringed PTFE oktmc32wgveirw 20140829in SU19kbetb41Pppznwmheisruk Summary Successful drug eluting stenting of the proximal LAD coronary artery with a 3.5X15 mm plus 3.0X8 mm Xience Alpine stents as described above. The second stent was needed to cover distal edge of th efirst stent in an overlapping fashion. 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 CURRENT THERAPY: Tamoxifen started in 11/17/14, prior anastrozole 11/2012- 09/2014, zoledronic acid, received 02/2015 and 08/2015.02cfqvw91txnm morphine equivalent 141fb98bkx pain uxpiqgzd12kkfj 4,epworh3,phq2 zero,mass fmd teacher checked,pain agreement unz16xlvz 756noe5 2 epworth 554mtknck95te stable;recheck 12 qvdrcu59tpbor lung nodules on neck CT recheck 6 ydttaz21owaf normal,b12 low pjfoab01rfq terst fsq41rdugyxp D deficiency;bxbzplddpb02duy5 40%42Per pulmonary function testing April 2014 Vital Signs Most recent to oldest [Reference Range]: 1 Height 149.86 cm (07/08/19 11:20 AM) Weight 68.95 kg (07/08/19 11:20 AM) Body Mass Index [18.5-24.99] 30.7 *>HHI* (07/08/19 11:20 AM) Blood Pressure [90-138/55-84 mm Hg] 130/80 mm Hg (07/08/19 11:20 AM) Blood pressure sites Arm, right (07/08/19 11:20 AM) Weight Obtained Via Patient/family stated (07/08/19 11:20 AM) Social History Social History Type Response 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
--- OUTSIDE RECORDS SUMMARY | 2022-06-11 12:52 | XMS_ITS | Continuity of Care Document ---
:1945 Author Organization [facility] Address [address] [facility], [address] [address]- Care Team Providers Name Role Phone Chino Vasquez MD Primary Care Physician Encounter 02/01/20 - 02/08/20 [facility] [address], [address] [address]- [facility] Attending Physician: Chino Vasquez MD Admitting Physician: Chino Vasquez MD Referring Physician: Chino Vasquez MD Allergies, Adverse Reactions, Alerts Substance Reaction Severity Status atorvastatin1 Active amLODIPine2 Active 4yjnd7sjcia Immunizations Given and Recorded Vaccine Date Status [...] Given P atient Refuses 1Result Comment: [05/27/2017] [facility] [id number]/Late Reason: Wan to Standard Admin Lxukm6Rtept Note: #24Admin Note: historical data Medications Aspirin = 81 mg, By Mouth, Daily, 0 Refills, Maintenance Start Date: 12/26/11 Status: OrderedBevespi Aerosphere 9 mcg-4.8 mcg/inh inhalation aerosol 2 puffs, Inhalation, 2 times a day, 4 by 28 doses lot [id number] 05-14, # 1 Doses, 11 Refills, Maintenance, 02/12/19 10:52:38 EDT, 2 puffs Inhalation 2 times a day,Instr:4 by 28 doses; lot [id number] 05-14 Start Date: 02/12/19 Status: Orderedcalcium (as [...] 02/08/20 7:20:00 EDT, Route to Pharmacy Electronically, [facility], 149.9, cm, 02/03/20 [...] 0 Refills, Maintenance, 01/18/20 17:11:00 EDT, Tablet, [facility], partial fill upon request, 02/01/20, 149.9, cm, 12/23/19 9:47:00 EDT, Height, 68.9, kg, 07/12/19 14:56:00 EST, Dry Weight Start Date: 01/18/20 Stop Date: 02/15/20 Status: Orderedlevothyroxine 125 mcg (0.125 mg) oral tablet 1 tablet = 125 mcg, By Mouth, Daily, # 30 tablet, 5 Refills, Maintenance, 10/18/19 14:04:00 EDT, Tablet, [facility], 149.9, cm, 10/14/19 14:23:00 EDT, Height, 68.9, kg, 07/12/19 14:56:00 EST, Dry Weight Start Date: 10/18/19 Status: Orderedmetoprolol 25 mg oral tablet 25 mg, 1, tablet, By Mouth, 2 times a day, # 60 tablet, Refills 5, Tot. Refills 5, Maintenance, 08/16/19 11:35:00 EST, Route to Pharmacy Electronically, [facility], 149.9, cm, 07/19/19 9:45:00EST, Height, 68.9, kg, 07/12/19 14:56:00 EST, Dry... Start Date: 08/16/19 Status: Orderedpravastatin 20 mg oral tablet 20 mg, 1, tablet, By Mouth, Daily, # 30 tablet, Refills 5, Tot. Refills 5, Maintenance, 11/02/19 10:04:00 EDT, Route to Pharmacy Electronically, [facility], 149.9, cm, 10/14/19 14:23:00 EDT, Height, 68.9, kg, 07/12/19 14:56:00 EST, Dry Weight Start Date: 11/02/19 Status: OrderedPriLOSEC OTC 20 mg oral delayed release tablet 1 tablet = 20 mg, By Mouth, Daily, # 90 tablet, 0 Refills, Maintenance, 02/08/20 7:20:00 EDT, CR Tablet, [facility], 149.9, cm, 02/03/20 [...] Replace Required Details, Route to Pharmacy Electronically, [facility], 149.9, cm, 10/14/19 14:23:00 EDT, Height, 68.9, kg, 1... Start Date: 10/15/19 Status: OrderedVentolin HFA 108 mcg/inh inhalation aerosol with adapter 2 puffs, Inhalation, 4 times a day, PRN for wheezing, # 1 each, 4 Refills, Maintenance, 11/16/19 13:50:00 EDT, Aerosol, [facility], Original prescription sent [...] Active use(Confirmed) Vitamin D Deficiency(Confirmed) Active 1per gastroenterology;clicrdw2Pwtjbskp to gastroenterology no-show for fbfvoynlial6fkd3 40%4chronic febageuysg4YTVA:2 low joufp2LPNP test done,MASS EVP CHIEF EXPLORATION OFFICER dcbcpmr5djmprd repeat sdx; injections,fentanyl,morphine,oxycodone er8Dr Oh no surgery re neck,atko5klk Dr King,yesterday NO SURGERY, rx corsett,pool10 evaluated by two neurosurgeons,pain lgjlwras64xsjhh il18[place] 24-hour urine vhzwuygt62AOAS increased alpha2 bqoneoour82tqzcwq iron,ferrritin,cderloplasmin; neg HEP a,B,Y83malqqwq Oswestry Disability Index: 48% ( severe disability ) on 04/15/16; updated [place] Back Pain Scale:44 on 04/15/16; updated [place]: 7 on 04/15/1616Initial [place]estry Disability Index: 48% ( severe disability ) on 11/24/14; initial [place] Back Pain Scale: 48 on 11/24/14; initial [place]: 5 on 11/24/1516egd . Bilateral common femoral artery endarterectomy. 3. Left common femoral artery patch angioplasty with PTFE. 4. 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 CURRENT THERAPY: Tamoxifen started in 11/17/14, prior anastrozole 11/2012- 09/2014, zoledronic acid, received 02/2015 and 08/2015.08mmmys51Fhbqjggzptaffw Summary Successful drug eluting stenting of the proximal LAD coronary artery with a 3.5X15 mm plus 3.0X8 mm Xience Alpine stents as described above. The second stent was needed to cover distal edge of th efirst stent in an overlapping fashion. 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
--- OUTSIDE RECORDS SUMMARY | 2022-06-11 12:52 | XMS_ITS | Continuity of Care Document ---
:1945 Author Organization [facility] Address [address] [place] [address]- Care Team Providers Name Role Phone Christina BAZAN, Chino Dao Primary Care Physician Encounter [facility] Date(s): 07/12/19 - 07/12/[address] [address]- [facility] Discharge Disposition: A-D/C Home Attending Physician: Jonathan Veronica MD Admitting Physician: Jonathan Veronica MD Referring Physician: Jonathan Veronica MD Allergies, Adverse Reactions, Alerts Substance Reaction [...] Comment: [05/27/2017] [facility] [id number]/Late Reason: Wan to Standard Admin [id number] Note: #24Admin Note: historical data Medications amLODIPine 10 mg oral tablet 10 mg, 1, tablet, By Mouth, Daily, # 30 tablet, Refills 11, Tot. Refills 11, Maintenance, 08/10/18 11:54:38 EST, Route to Pharmacy Electronically, [id number], [facility] Start Date: 08/10/18 Status: OrderedAspirin = 81 mg, By Mouth, Daily, 0 Refills, Maintenance Start Date: 12/26/11 Status: OrderedBevespi Aerosphere 9 mcg-4.8 mcg/inh inhalation aerosol 2 puffs, Inhalation, 2 times a day, 4 by 28 doses lot [id number] 05-14, # 1 Doses, 11 Refills, Maintenance, 02/12/19 10:52:38 EDT, 2 puffs Inhalation 2 times a day,Instr:4 by 28 doses; lot [id number] 05-14 Start Date: 02/12/19 Status: OrderedFlovent HFA [...] hours, # 84 tablet, 0 Refills, Maintenance, 06/15/19 12:21:00 EST, Tablet, partial fill upon request, 06/23/19 Start Date: 06/15/19 Stop Date: 07/13/19 Status: Orderedlevothyroxine 0.1 mg oral tablet 1 tablet = 100 mcg, By Mouth, Daily, # 30 tablet, 5 Refills, Maintenance, 05/28/19 9:34:46 EDT, Tablet Start Date: 05/28/19 Status: Orderedmetoprolol 25 mg oral tablet 25 mg, 1, tablet, By Mouth, 2 times a day, # 60 tablet, Refills 1, Tot. Refills 1, Maintenance, 06/14/19 13:25:57 EST, Route to Pharmacy Electronically, [id number], [facility] Start Date: 06/14/19 Status: OrderedPlavix 75 mg oral tablet 75 mg, 1, tablet, By Mouth, Daily in AM, # 30 tablet, Refills 5, Tot. Refills 5, Maintenance, 02/17/19 10:47:40 EDT, Route to Pharmacy Electronically, [id number], [facility] Start Date: 02/17/19 Status: [...] of Active breast left;lumpectomy 2012/xrt 2012(Confirmed)27, 28 [facility] current use of opiate Active analgesic(Confirmed)29, 30, [...] Active 42 Vitamin D Deficiency(Confirmed) Active 1per gastroenterology;meftlfq8Vzgcqqcf to gastroenterology no-show for qwizokkrlnf4OWC3y ssm2KLv8 four low thswc2ljn7 40%6chronic uysmvzcvnr1TFMI:2 low qsywi1QVBC test done,MASS PURCHASING SPECIALIST apryhjj6blobrm repeat sdx; injections,fentanyl,morphine,oxycodone er10Dr Oh no surgery re neck,wfqj44ljm Dr King,yesterday NO SURGERY, rx corsett,mtzp89rvsexiksu by two neurosurgeons,pain tpxotjvx72dqvtl ny71Lhbvva 24-hour urine tjmedgex81TZZQ increased alpha2 ikebwrdco41szsorq iron,ferrritin,cderloplasmin; neg HEP a,B,C17 updated Oswestry Disability Index: 48% ( severe disability ) on 04/15/16; updated [place] Back Pain Scale:44 on 04/15/16; updated [place]: 7 on 04/15/1618Initial Oswestry Disability Index: 48% ( severe disability ) on 11/24/14; initial [place] Back Pain Scale: 48 on 11/24/14; initial [place]: 5 on 11/24/1518egd [id number]. Bilateral common femoral artery endarterectomy. 3. Left common femoral artery patch angioplasty with PTFE. 4. Gctt-lz-zehro femoral-femoral bypass with 8-mm ringed PTFE wjpfv88ckdiglg 20140829in OK81njhcm24Epwaucgpozavnw Summary Successful drug eluting stenting of the proximal LAD coronary artery with a 3.5X15 mm plus 3.0X8 mm Xience Alpine stents as described above. The second stent was needed to cover distal edge of th efirst stent in an overlapping fashion. 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 CURRENT THERAPY: Tamoxifen started in 11/17/14, prior anastrozole 11/2012- 09/2014, zoledronic acid, received 02/2015 and 08/2015.09cfnip04zjpa cerzqc80 morphine equivalent 545as59dsx pain ckelqtgo87pylr 4,epworh3,phq2 zero,mass counter supervisor checked,pain agreement ctr00tzds 668kgs9 2 epworth 041mfxnjt86ww stable;recheck 12 ktzgzg13tnfrt lung nodules on neck CT recheck 6 bmmiei29lska normal,b12 low jhgojg36hgl terst zqa42nuzifal D deficiency;utfmrdtnkt89jnz9 40%42Per pulmonary function testing April 2014 Procedures Procedure Date Related Diagnosis Body Site Status Colonoscopy, flexible; 07/12/19 Compl eted diagnostic,sigmoid divet Vital Signs Most recent to oldest 1 2 3 [Reference Range]: Height 149.9 cm (07/12/19 2:56 PM) Oxygen Saturation [94-100 %] 100 % 100 % 98 % (07/12/19 3:55 PM) (07/12/19 3:46 PM) (07/12/19 2:56 PM) Pulse Rate [55-90 bpm] 58 bpm (07/12/19 2:56 PM) Blood Pressure [90-138/55-84 137/63 mm Hg 115/47 mm Hg 154 /69 mm Hg mm Hg] (07/12/19 3:55 PM) (07/12/19 3:46 PM) *H* (07/12/19 2:56 P M) Respiratory Rate [16-30 18 br/min 18 br/min 20 br/mi n br/min] (07/12/19 3:55 PM) (07/12/19 3:46 PM) (07/12/19 2:56 PM) Temperature [96.8-100.4 98.3 DegF DegF] (07/12/19 2:56 PM) Mode of Delivery (Oxygen) Room air Room air Room a ir (07/12/19 3:55 PM) (07/12/19 3:46 PM) (07/12/19 2:56 PM) Temperature Route Femoral (07/12/19 2:56 PM) Dry Weight 68.9 kg (07/12/19 2:56 PM) Social History Social History Type Response 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
--- OUTSIDE RECORDS SUMMARY | 2022-06-11 12:52 | XMS_ITS | Continuity of Care Document ---
:[address] [facility] Address [address] [place] [address]- Care Team Providers Name Role Phone Christina BAZAN, Chino Dao Primary Care Physician Encounter [facility] Date(s): 02/04/22 - 03/06/22 [facility] [address] [place] [address]- Allergies, Adverse Reactions, Alerts Substance Reaction Severity Status spironolactone1 Active lisinopril2 Active atorvastatin3 Active thiazide diuretics4 Active amLODIPine5 Active 1wideg9hrfqtxc xywkeqmh1uamj2qyahkqmgwmim8laidk Immunizations Given and Recorded Vaccine Date Status [...] 1Result Comment: [facility]: [id number] Comment: [facility]: [phone] Comment: [facility]: [phone] Comment: [05/27/2017] [facility] [phone] Early/Late Reason: Wan to Standard Admin [id number] Note: #27Admin Note: historical data Medications aspirin [...] Maintenance, 02/26/22 12:07:00 EDT, Tablet, [facility] [...] tablet, 5 Refills, 10/11/21 14:05:00 EDT,[facility], 149, [...] Route to Pharmacy Electronically, [facility], Partial fill upon [...] breast cancer Left, IDC, Active pT1c pN0, ER/ND positive, Her-2/angelito negative, 2012(Confirmed)22, 23 History of [...] 10/18/21 Active Vitamin D Deficiency(Confirmed) Active 1per gastroenterology;pldramd7Ecmqjqhu to gastroenterology no-show for ooabtnbwtrb5hpp4 40%4chronic fgqqxqbqth3QNLW:2 low dmxsb5WCEQ test done,MASS RUBBER ATTACHER sdkvqkc5hnsjbe repeat sdx; injections,fentanyl,morphine,oxycodone er8Dr Oh no surgery re neck,vmzf5yks Dr King,yesterday NO SURGERY, rx corsett,pool10 evaluated by two neurosurgeons,pain sbituota50lxzwf tj28Cngcyh 24-hour urine ohqmvgde46QUYH increased alpha2 ghuvumpnq40aesitt iron,ferrritin,cderloplasmin; neg HEP a,B,N77juxbdmh Oswestry Disability Index: 48% ( severe disability ) on 04/15/16; updated [place] Back Pain Scale:44 on 04/15/16; updated [place]: 7 on 04/15/1616Initial Oswestry Disability Index: 48% ( severe disability ) on 11/24/14; initial [place] Back Pain Scale: 48 on 11/24/14; initial [place]: 5 on 11/24/1516egd . Bilateral common femoral artery endarterectomy. 3. Left common femoral artery patch angioplasty with PTFE. 4. 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 CURRENT THERAPY: Tamoxifen started in 11/17/14, prior anastrozole 11/2012- 09/2014, zoledronic acid, received 02/2015 and 08/2015.17wnmwu85Ecwaoqxegqhlic Summary Successful drug eluting stenting of the proximal LAD coronary artery with a 3.5X15 mm plus 3.0X8 mm Xience Alpine stents as described above. The second stent was needed to cover distal edge of th efirst stent in an overlapping fashion. 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
--- OUTSIDE RECORDS SUMMARY | 2022-06-11 12:52 | XMS_ITS | Continuity of Care Document ---
:1945 Author Organization [facility] Address [address] [place] [address]- Care Team Providers Name Role Phone Chino Vasquez MD Primary Care Physician Encounter [facility] [place] Date(s): 11/23/20 - 11/30/20 [facility] [address] [place] [address]- Attending Physician: Solange Starr NP Referring Physician: Chino Vasquez MD Allergies, Adverse Reactions, Alerts Substance Reaction Severity Status spironolactone1 Active lisinopril2 Active atorvastatin3 Active amLODIPine4 Active 7wwxrl1uxxlkfn cgcwjarv2awii3xmlnm Immunizations Given and Recorded Vaccine Date Status [...] Refuses 1Result Comment: [05/27/2017] [facility] [phone]/Late Reason: Wan to Standard Admin Syozq0Nixem Note: #24Admin Note: historical data Medications Aspirin = 81 mg, By Mouth, Daily, 0 Refills, Maintenance Start Date: 12/26/11 Status: OrderedBevespi Aerosphere 9 mcg-4.8 mcg/inh inhalation aerosol 2 puffs, Inhalation, 2 times a day, 4 by 28 doses, # 5.9 Gm, 11 Refills, Maintenance, 04/25/20 11:19:00 EDT, [facility], 2 puffs Inhalation 2 times a day,Instr:4 by 28 doses, 149.9, cm, 02/14/20 11:11:00 EDT, Height, 68.9, kg, 07/12/19 14:56:... Start Date: 04/25/20 Status: OrderedBevespi Aerosphere 9 mcg-4.8 mcg/inh inhalation aerosol See Instructions, INHALE 2 PUFFS BY MOUTH TWO TIMES A DAY, # 10.7 Gm, 11 Refills, Maintenance, [facility], 30, INHALE 2 PUFFS [...] 0 Refills, Maintenance, 11/29/20 14:56:00 EDT, Tablet, [facility] # [...] 11/13/20 16:41:00 EDT, Route to Pharmacy Electronically, [facility], 149.9, cm, 11/13/20 [...] 5 Refills, Maintenance, 10/18/20 9:01:00 EDT, Aerosol, [facility], 149.9, cm, 08/28/20 [...] 5 Refills, Maintenance, 11/06/20 16:02:00 EDT, Tablet, [facility], 149.9, cm, 10/26/20 [...] Active use(Confirmed) Vitamin D Deficiency(Confirmed) Active 1per gastroenterology;gajjlvz0Btclfxzt to gastroenterology no-show for kbsajlqxakf0tdm3 40%4chronic nohidgchlk5HDOA:2 low gdkqr0ZWGZ test done,MASS INTAKE NURSE okdntfw8bibijv repeat sdx; injections,fentanyl,morphine,oxycodone er8Dr Oh no surgery re neck,kkxv1tgs Dr King,yesterday NO SURGERY, rx corsett,pool10 evaluated by two neurosurgeons,pain xoivddsi45qoeat xd41Kerbqg 24-hour urine gingdzih49FAIM increased alpha2 lpmihlapc24quarhz iron,ferrritin,cderloplasmin; neg HEP a,B,V39zyprqfk Oswestry Disability Index: 48% ( severe disability ) on 04/15/16; updated [place] Back Pain Scale:44 on 04/15/16; updated [place]: 7 on 6Initial Oswestry Disability Index: 48% ( severe disability ) on 11/24/14; initial [place] Back Pain Scale: 48 on 11/24/14; initial [place]: 5 on 11/24/1516egd . Bilateral common femoral artery endarterectomy. 3. Left common femoral artery patch angioplasty with PTFE. 4. 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 CURRENT THERAPY: Tamoxifen started in 11/17/14, prior anastrozole 11/2012- 09/2014, zoledronic acid, received 02/2015 and 08/2015.49vcmxq19Dmciewfrybgvns Summary Successful drug eluting stenting of the proximal LAD coronary artery with a 3.5X15 mm plus 3.0X8 mm Xience Alpine stents as described above. The second stent was needed to cover distal edge of th efirst stent in an overlapping fashion. The stents were post-dilated using a 3.5 mm non-compliant balloon.25 now hyperthyroid,exopthalmous;Dr MurphyRatwid19yaqeicn pre diabetes increased risk fzbuxatx39cuzvoo90vt stable;recheck 12 pzulgk82gagpc lung nodules on neck CT recheck 6 qzglqg13YHM0a yqw38MTe0 four low fcyqh27kufa normal,b12 low ywzqso75 [address] ojr93nflcqiu D deficiency;correcting Vital Signs Most recent to oldest [Reference Range]: 1 Oxygen Saturation [94-100 %] 98 % (11/23/20 10:00 AM) Pulse Rate [55-90 bpm] 66 bpm (11/23/20 10:00 AM) Blood Pressure [90-138/55-84 mm Hg] 128/60 mm Hg (11/23/20 10:00 AM) Blood pressure sites Arm, right (11/23/20 10:00 AM) Social History Social History Type Response 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
--- OUTSIDE RECORDS SUMMARY | 2022-06-11 12:52 | XMS_ITS | Continuity of Care Document ---
:1945 Author Organization [facility] Adult Address [address] [place] [address]- Care Team Providers Name Role Phone Christina BAZAN, Chino Dao Primary Care Physician Encounter [facility] Date(s): 09/25/20 - 10/25/20 [facility] [address] [place] [address]- Allergies, Adverse Reactions, Alerts Substance Reaction Severity Status atorvastatin1 Active amLODIPine2 Active 8jkeh8crmrk Immunizations Given and Recorded Vaccine Date Status [...] Given P atient Refuses 1Result Comment: [05/27/2017] [facility] [id number]/Late Reason: Wan to Standard Admin Cckmi3Fucjf Note: #24Admin Note: historical data Medications Aspirin = 81 mg, By Mouth, Daily, 0 Refills, Maintenance Start Date: 12/26/11 Status: OrderedBevespi Aerosphere 9 mcg-4.8 mcg/inh inhalation aerosol 2 puffs, Inhalation, 2 times a day, 4 by 28 doses, # 5.9 Gm, 11 Refills, Maintenance, 04/25/20 11:19:00 EDT, [facility], 2 [...] tablet, Refills 11, Tot. Refills 11, Maintenance, 10/03/20 18:16:00 EST, Route to Pharmacy Electronically, [facility], 149.9, cm, 08/28/20 14:48:00 EST,Height, 68.9, kg, 07/12/19 14:56:00 EST, Dry Weight Start Date: 10/03/20 Status: Orderedhydrocortisone 2.5% topical cream 1 application, [...] 14:56:00 EST, . Start Date: 08/13/20 Status: OrderedPriLOSEC OTC 20 [...] Active use(Confirmed) Vitamin D Deficiency(Confirmed) Active 1per gastroenterology;apvacka4Ssqnoyaa to gastroenterology no-show for wtzxqzrxskd9tak2 40%4chronic kbmvqybagc8AVOE:2 low ocqmi6USDQ test done,MASS HIMS MANAGER aqnlmtr9dvyadu repeat sdx; injections,fentanyl,morphine,oxycodone er8Dr Oh no surgery re neck,fgnn0aof Dr King,yesterday NO SURGERY, rx corsett,pool10 evaluated by two neurosurgeons,pain hrcevono99ehmel fv87Ekuoxr 24-hour urine elaikcze53ANAZ increased alpha2 xswzixfib09rvvhlb iron,ferrritin,cderloplasmin; neg HEP a,B,E84tzagtlz Oswestry Disability Index: 48% ( severe disability ) on 04/15/16; updated [place] Back Pain Scale:44 on 04/15/16; updated [place]: 7 on 04/15/1616Initial Oswestry Disability Index: 48% ( severe disability ) on 11/24/14; initial [place] Back Pain Scale: 48 on 11/24/14; initial [place]: 5 on 7egd . Bilateral common femoral artery endarterectomy. 3. Left common femoral artery patch angioplasty with PTFE. 4. 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 CURRENT THERAPY: Tamoxifen started in 11/17/14, prior anastrozole 11/2012- 09/2014, zoledronic acid, received 02/2015 and 08/2015.17qiwwq10Vfsmeiawcbycqg Summary Successful drug eluting stenting of the proximal LAD coronary artery with a 3.5X15 mm plus 3.0X8 mm Xience Alpine stents as described above. The second stent was needed to cover distal edge of th efirst stent in an overlapping fashion. 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
--- OUTSIDE RECORDS SUMMARY | 2022-06-11 12:52 | XMS_ITS ---
:1945 Author Care Team Providers Name Role Phone Harshil Pearson Primary Care Provider Unavailable Allergies Code Code System Name Reaction Severity Status Onset NKDA ? Medications Name Status Start Date Stop Date ? ? Bevespi Aerosphere 9 mcg-4.8 mcg HFA aerosol inhaler Active ? Not available carvedilol 25 mg tablet Active ? Not avai lable carvedilol 6.25 mg tablet Active ? Not av ailable chlorthalidone 25 mg tablet Active ? Not available clonidine HCl 0.1 mg tablet Active ? Not available clopidogrel 75 mg tablet Active ? Not jane ilable doxycycline hyclate 100 mg capsule Active ? Not available ezetimibe 10 mg tablet Active ? Not avail able Flovent HFA 110 mcg/actuation aerosol inhaler Active ? Not available fluoxetine 40 mg capsule Active ? Not jane ilable furosemide 20 mg tablet Active ? Not avai lable hydrocortisone 2.5 % topical cream Active ? Not available hydromorphone 4 mg tablet Active ? Not av ailable levothyroxine 125 mcg tablet Active ? Not available metoprolol tartrate 25 mg tablet Active ? Not available omeprazole 20 mg capsule,delayed release Active ? Not available oxycodone 5 mg tablet Completed ? 09/17/2021 TAKE 1 TABLET BY MOUTH EVERY 6 HOURS NEEDED FOR SEVERE PAIN pantoprazole 20 mg tablet,delayed release Active ? Not available rosuvastatin 10 mg tablet Active ? Not av ailable Trelegy Ellipta 200 mcg-62.5 mcg-25 mcg powder for inhalation Ac tive ? Not available INHALE ONE PUFF DAILY AT THE SAME TIME EACH DAY Ventolin HFA 90 mcg/actuation aerosol inhaler Active ? Not available Problems Name Status Onset Date Source ? 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 Procedures Date Name Performed by ? 09/17/2021 XR, Shoulder Main-[facility] [address] [place], [place] [address] (Sonu P rosario) Notes: Patient indicated no previous s urgeries on (09/17/2021) Results Lab Results None recorded. Past Encounters 09/17/2021 Degenerative Joint Disease of Shoulder R DAYANA Gimenez: [address], [place] [address], Ph. [phone] Social History Tobacco Smoking Status Former Smoker Vaccine List None recorded. Plan of Care Reminders Provider Appointments None recorded. ? ? Lab None recorded. ? ? Referral None recorded. ? ? Procedures None recorded. ? ? Surgeries None recorded. ? ? Imaging None recorded. ? ? Vitals Height Weight BMI 4 ft 11 in 152 lbs 30.7 kg/m2
--- NOTE | 2022-06-11 12:53 | PC.NURSE ---
[facility] @ BEDSIDE PUTTING PT ON STRETCHER @ THIS TIME
[2022-06-11 12:54] LABS: COVID-19 Test Negative (Negative); IDNOW Serial# 55D5AD1C
--- NOTE | 2022-06-11 12:59 | PC.NURSE ---
[facility] called, report given Jenny. Pt being transferred at this time. Spoke to Miguel at request of pt, updated on plan of care transport to [facility].
--- NOTE | 2022-06-11 13:00 | PC.NURSE ---
[facility] LEAVES [facility] @ THIS TIME TO [facility] CUPOLA MELTER
[2022-06-11 13:04] LABS: Alanine Aminotransferase 15 U/L (0-31); Albumin Level 3.9 g/dL (3.5-5.0); Alkaline Phosphatase 68 U/L (39-117); Anion Gap 18 (12-20); Aspartate Amino Transferase 22 U/L (5-31); Bilirubin Direct 0.4 mg/dL (0.0-0.5); Bilirubin Total 1.1 mg/dL (0.0-1.0); Blood Urea Nitrogen 29 mg/dL (9-16); Calcium 9.1 mg/dL (8.4-10.2); Carbon Dioxide 26 mmol/L (22-29); Chloride 92 mmol/L (96-108); Creatinine Clr Calc Pharmacy 47.8; Estimated Glomerular Filt Rate > 60; Glucose Random 122 mg/dL (60-115); Potassium 4.5 mmol/L (3.3-5.1); Sodium 131 mmol/L (135-145); Total Protein 6.5 g/dL (6.5-8.0)
[2022-06-11 13:06] LABS: Troponin-I High Sensitivity 225.3 ng/L (<3.5-17.0)
== END 2022-06-11 14:09 | disposition short-term general hospital (02) ==
PROVIDERS: Emergency Provider Emergency Medicine Emergency Medical Services; PCP Internal Medicine
DX: I21.3 ST elevation (STEMI) myocardial infarction of unspecified site (principal); J44.9 Chronic obstructive pulmonary disease, unspecified; R06.02 Shortness of breath; Z20.822 Contact with and (suspected) exposure to COVID-19; Z79.899 Other long term (current) drug therapy
CPT/HCPCS: 36415; 71045; 80048; 80076; 84484; 85025; 87635; 93005; 94640; 96374; 96375; 99285; J2930

== ENCOUNTER 2022-10-12 15:05 | Outpatient (REF) | payer MEDICARE, SELFPAY ==
[2022-10-12 16:04] LABS: Influenza A PCR NEGATIVE (Negative); Influenza B PCR NEGATIVE (Negative); Resp Syncy Virus RNA Qual PCR NEGATIVE (Negative); SARS COV2 PCR INHOUSE NEGATIVE (Negative)
== END 2022-10-12 15:06 | disposition home or self-care (01) ==
LOC: HO.LNP 15:05
PROVIDERS: Visit Provider Nurse Practitioner Acute Care
DX: Z20.822 Contact with and (suspected) exposure to COVID-19 (principal); R68.89 Other general symptoms and signs
CPT/HCPCS: 0241U

== ENCOUNTER 2022-10-22 08:47 | Outpatient (REF) | payer MEDICARE, SELFPAY | END 2022-10-22 08:48 | disposition home or self-care (01) | LOC: HO.SH 08:47 | PROVIDERS: Visit Provider Nurse Practitioner Family | DX: H90.6 Mixed conductive and sensorineural hearing loss, bilateral (principal) | CPT/HCPCS: 92557; 92567 ==

== ENCOUNTER 2023-04-29 13:00 | Outpatient (RCR) | payer MEDICARE, SELFPAY | END 2023-12-23 13:40 | disposition home or self-care (01) | LOC: HO.OT 13:00 | PROVIDERS: PCP Nurse Practitioner Family; Visit Provider Nurse Practitioner Family | DX: I89.0 Lymphedema, not elsewhere classified (principal) | CPT/HCPCS: 97110; 97140; 97166 ==

== ENCOUNTER 2025-02-19 15:57 | Inpatient (IN) | payer MEDICARE, SELFPAY ==
--- NOTE | ~2025-02-19 | MR_ITS ---
CLINICAL HISTORY: ?Stroke symptoms, carotid disease noted on the CTA Pt motion throughout exam. Best possible images obtained. MR Brain without intravenous contrast Comparison: Head CT from 02/19/2025 Findings: No restricted diffusion acute brain infarction. Multiple sequences are degraded by motion artifacts. Mild-moderate white matter lesions are nonspecific and may reflect small-vessel ischemic disease, including of the juni. Multiple perivascular spaces noted. Mild volume loss is generalized. No midline shift or hydrocephalus. Degenerative changes include imaged spine. Fluid and mucosal thickening paranasal sinuses particularly in the left side of the sphenoid sinus. Previous cataract procedure changes noted with motion artifacts. Small-moderate bilateral mastoid effusions. IMPRESSION: 1. No restricted diffusion acute brain infarction. 2. Nonacute white matter pathology is nonspecific and likely related to small-vessel ischemic disease. This document has been electronically signed by: Yuriy Palm MD on 02/19/2025 21:25:35
--- NOTE | ~2025-02-19 | CT_ITS ---
CLINICAL HISTORY: Left facial droop, altered mental status R O strok CT of the head without intravenous contrast Comparison: None Findings: The ventricles and sulci are prominent, consistent with generalized cerebral parenchymal volume loss. The ventricles are symmetric and the basilar cisterns are intact. Mild periventricular, deep and subcortical white matter hypodensities are nonspecific but statistically reflect the sequela of chronic small vessel ischemic change. Remote right basal ganglia lacunar infarct. No intracranial hemorrhage, extra-axial fluid collection, midline shift or mass-effect is evident. No evidence of acute large vessel or territorial ischemia. Brainstem and cerebellum unremarkable. Vascular calcifications indicate intracranial atherosclerosis. The imaged portion of the paranasal sinuses demonstrated sphenoid sinusitis on the left. No mastoid effusions are demonstrated. The orbital contents are unremarkable. Calvarium is intact. Impression: 1. No CT evidence of acute intracranial abnormality. 2. Cerebral volume loss, intracranial atherosclerotic disease and mild sequela of chronic small vessel ischemic disease. This document has been electronically signed by: Blane Gooden MD on 02/19/2025 16:36:52
--- NOTE | ~2025-02-19 | CT_ITS ---
EXAMINATION: CT ABDOMEN PELVIS WITH IV CONTRAST HISTORY: abd pain/distension, palpable cord lower abd COMPARISON: There are no prior studies for available comparison. TECHNIQUE: CT scan of the abdomen and pelvis was performed following administration of 85 mL Omnipaque 350 using standard departmental protocol. Coronal and sagittal reformatted images were generated and reviewed. Oral contrast material was not administered at the request of the referring physician. This CT exam was performed with one or more of the following dose reduction techniques: automated exposure control, adjustment of the mA and/or kV according to patient size, use of iterative reconstruction technique. DLP: 823 mGy-cm FINDINGS: LOWER CHEST: The visualized lung bases are clear. There is no pleural effusion. CARDIOVASCULATURE: The heart is normal in size. There is no pericardial effusion. LIVER: The liver is normal in size and contour. There is a subcentimeter probable cyst in the left lobe. The hepatic and portal veins are patent. GALLBLADDER / BILE DUCTS: The gallbladder is distended, without evidence of calcified stones. There is no intra or extrahepatic biliary ductal dilatation. SPLEEN: The spleen is normal in size. No focal splenic lesion is identified. PANCREAS: The pancreas is unremarkable in appearance. ADRENAL GLANDS: Within normal limits. KIDNEYS/RETROPERITONEUM: No renal calculi are identified. There is no hydronephrosis. No renal masses are identified. LYMPH NODES: No abdominal or pelvic lymphadenopathy. VASCULATURE: There is severe atherosclerotic calcification of the abdominal aorta, which is normal in caliber. A femoral-femoral/bypass graft is seen in place. The graft is patent. MESENTERY/PERITONEUM: No free fluid. No masses. There is no free intraperitoneal gas. STOMACH: The stomach is collapsed, limiting evaluation. SMALL BOWEL: The small bowel is normal in caliber. COLON: There is diverticulosis of the sigmoid colon, without evidence of diverticulitis. APPENDIX: The appendix is surgically absent. URINARY BLADDER/PELVIC ORGANS: The urinary bladder is unremarkable. There are numerous calcified uterine fibroids. BONES / SOFT TISSUES: There is severe degenerative disc disease of the spine. The patient is status post posterior fusion of L5 and S1. There is spondylolisthesis of L4 on L5 and L5 on S1. CT/CT abdomen pelvis w IV con IMPRESSION: 1. Patent femoral/femoral bypass graft which likely accounts for the palpable cord in the lower abdomen. 2. Sigmoid diverticulosis without evidence of diverticulitis. 3. Fibroid uterus. Electronically signed by: Ab Sherman MD 02/21/2025 10:58 AM EDT
--- NOTE | ~2025-02-19 | XR_ITS ---
EXAMINATION: XR CHEST CLINICAL INFORMATION: crackles COMPARISON: None available. TECHNIQUE: Frontal view of the chest was obtained. FINDINGS: No significant abnormality is noted involving the heart, lungs, mediastinum, or soft tissues. Dense calcification is present in the aortic knob. Severe degenerative changes are present in the right shoulder joint with sclerosis and osteophytes. XR/XR chest 1V IMPRESSION: No acute disease. Severe degenerative changes of the right shoulder joint. Electronically signed by: Stephen Hernandez MD 02/22/2025 12:20 PM EDT
--- NOTE | ~2025-02-19 | CT_ITS ---
CLINICAL HISTORY: Left facial droop, R O stroke CT angiography head with IV contrast. 3-D postprocessing Comparison: CT/SR - HEAD STROKE_BRAIN (ADULT) - 02/19/25 16:03 EDT Findings: Angiographic images of the head: The terminal portion of both internal carotid arteries are patent. The anterior and middle cerebral arteries are patent along their proximal aspects. Posteriorly within the head, the intradural vertebral arteries, basilar artery and contaminated land consultant are patent. No aneurysm or arteriovenous shunting lesion is appreciated. Impression: 1. Wide patency of the intracranial arterial circulation. 2. No intracranial aneurysm or AVM. 3. Unremarkable CT enhancement of the brain parenchyma. CT angiography neck with contrast. 3-D postprocessing Comparison: CT/SR - HEAD STROKE_BRAIN (ADULT) - 02/19/25 16:03 EDT Findings: Angiographic images of the neck: There is probable critical stenosis proximal left subclavian artery with reconstitution of the vessel distally. The bilateral common carotid arteries are patent. Both carotid bulbs are widely patent. Both ICAs follow normal course and caliber through their distal cervical segments. Calcified plaque in the proximal internal carotid arteries bilaterally. Posteriorly within the neck, the vertebral arteries are codominant with patent origins. Both vessels follow normal course and caliber through their suboccipital segments. Sphenoid sinusitis. No mastoid effusions. Adenoids are not enlarged. Normal Fossa of Rosenmuller. Epiglottis and palatine tonsils are not enlarged. No subglottic masses. Normal thyroid gland. Osseous structures intact. Lung apices unremarkable. Impression: 1. There is less than 50% stenosis of the right common carotid artery bifurcation and proximal right internal carotid artery based on NASCET criteria. 2. There is 80-90% stenosis of the left common carotid artey bifurcation and proximal left internal carotid artery based on NASCET criteria. 3. Wide patency of the cervical vertebral arteries. 4. Suspect critical stenosis origin of the left subclavian artery. There is reconstitution of the vessel distally. This document has been electronically signed by: Blane Gooden MD on 02/19/2025 17:02:16
--- NOTE | ~2025-02-19 | XR_ITS ---
CLINICAL HISTORY: Altered mental status, left facial droop, R O pneu 1 view chest x-ray. Comparison: CR/SR - XR CHEST 2 VIEWS - 06/11/22 12:33 EST Findings: Normal lung volumes. Lungs are clear. No pneumothorax or pleural effusion. Heart size normal. No passive venous congestion. No midline shift or tracheal deviation. No acute fracture. Impression: 1. No acute cardiopulmonary disease. This document has been electronically signed by: Blane Gooden MD on 02/19/2025 17:33:28
--- NOTE | 2025-02-19 16:03 | ECG_ITS ---
Test Reason : STROKE Blood Pressure : */* mmHG Vent. Rate : 73 BPM Atrial Rate : 73 BPM P-R Int : 218 ms QRS Dur : 100 ms QT Int : 410 ms P-R-T Axes : 83 56 -67 degrees QTcB Int : 451 ms Sinus rhythm with 1st degree A-V block Left ventricular hypertrophy with repolarization abnormality ( Jasper product ) Cannot rule out Inferior infarct Abnormal ECG When compared with ECG of 11-Jun-2022 12:18, No significant changes seen Referred By: Dimitry Lanier Electronically Signed By: Bernardino Lockett
--- NOTE | 2025-02-19 16:03 | ED.NEUROSD ---
HPI - Neuro Symptoms/Deficit General Stated Complaint: stroke alert, weak , spouse found on ground Time Seen by Provider: 02/19/25 16:00 Source: patient and EMS Mode of arrival: EMS History of Present Illness ED Provider: Dr. Dimitry Lanier HPI Narrative: 79-year-old female history of asthma, hypertension, high cholesterol, anxiety, depression, chronic back pain, hypothyroidism, breast cancer status post resection/radiation who was brought to emergency department for evaluation of change in mental status and left-sided weakness. Patient's last well-known time was 14:00 hours. gave the patient and oxycodone at around 14:40 hours. At 15:30 hours the patient tried to get off the couch but was in coherent and was unable to stand. EMS states that they know the patient well and she is usually awake and alert and was altered from her baseline. EMS states that the patient lean to the left and appeared to have left-sided weakness during transport. At the time my evaluation, the patient was somnolent but arousable. She was oriented to person, place, month and age. She is able to hold both arms up against gravity with good strength. She is able to hold her legs up against gravity as well. Patient had difficulty identifying objects (pen, watch, glove) and her speech is slow but comprehensible. Point of care glucose was 107. I did speak to the patient's over the phone. He is certain that he gave the patient carvedilol, furosemide, oxycodone and pantoprazole. The patient's did receive a prescription earlier from the emergency department for Flexeril and prednisone but he states that he did not open these prescriptions in his certain that he did not give his the wrong medications. Related Data Home Medications ?Medication ?Instructions ?Recorded ?Confirmed albuterol sulfate 90 mcg/actuation 0 mcg inhalation 12/07/21 10/12/22 aerosol inhaler (Ventolin HFA) budesonide 160 mcg-glycopyr 9 inh inhalation 12/07/21 10/12/22 mcg-formot 4.8 mcg/actuation HFA inhaler (Breztri Aerosphere) carvedilol 25 mg tablet 25 mg PO BID 12/07/21 10/12/22 clopidogrel 75 mg tablet 75 mg PO DAILY 12/07/21 10/12/22 ezetimibe 10 mg tablet 10 mg PO DAILY 12/07/21 10/12/22 fluoxetine 40 mg capsule 40 mg PO DAILY 12/07/21 10/12/22 levothyroxine 125 mcg tablet 125 mcg PO DAILY 12/07/21 10/12/22 pantoprazole 20 mg tablet,delayed 20 mg PO DAILY 12/07/21 10/12/22 release rosuvastatin 10 mg tablet 10 mg PO BEDTIME 12/07/21 10/12/22 furosemide 20 mg tablet 20 mg PO DAILY 02/05/22 10/12/22 hydromorphone 4 mg tablet mg PO 10/12/22 10/12/22 ondansetron HCl 4 mg tablet mg PO 10/12/22 10/12/22 potassium chloride 20 mEq 20 meq PO DAILY 10/12/22 10/12/22 tablet,extended release(part/cryst) valsartan 80 mg tablet mg PO 10/12/22 10/12/22 Previous Rx's ?Medication ?Instructions ?Recorded azithromycin 250 mg tablet See Rx Instructions PO .COMPLEX #6 10/12/22 tabs ondansetron 4 mg disintegrating 4 mg PO Q8H PRN nausea and 10/12/22 tablet vomiting #20 tabs saliva stimulant comb. 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 Physical Exam Vital Signs: Exam: General: Somnolent, arousable, when awake does answer questions appropriately Head: Normocephalic, atraumatic EENT: PERRL, Lids normal, sclera normal, conjunctiva normal, nose normal , ears normal, throat without erythema or exudates Neck: Supple, no adenopathy Lung: breath sounds symmetric, no wheezing, rales or rhonchi Chest: symmetric movement, nontender Heart: regular rate and rhythm, normal S1, S2 no murmurs or rubs Abdomen: soft, non-tender, nondistended, normal bowel sounds Back: no vertebral tenderness, no CVAT Extremities: no deformities, moves all extremities symmetrically Neuro: General: Somnolent but arousable, answers questions appropriately when awake, patient knew the month, her age, she is at [facility] Cranial nerves: ?Cranial nerves ?intact Strength: ?Moves all extremities symmetrically, able to hold extremities up against gravity Cerebellar: ?Poor [id number]-hl-iwml-to-finger Sensory: Feels noxious stimuli, bilaterally symmetric Extinction: Responds to right and left-sided commands appropriately Psych: Pleasant, cooperative Medical Decision Making Medical Decision Making MDM Narrative: 79-year-old female history of asthma, hypertension, high cholesterol, anxiety, depression, chronic back pain, hypothyroidism, breast cancer status post resection/radiation who was brought to emergency department for evaluation of change in mental status and left-sided weakness. Patient's last well-known time was 14:00 hours. gave the patient and oxycodone at around 14:40 hours. At 15:30 hours the patient tried to get off the couch but was in coherent and was unable to stand. EMS states that they know the patient well and she is usually awake and alert and was altered from her baseline. EMS states that the patient lean to the left and appeared to have left-sided weakness during transport. At the time my evaluation, the patient was somnolent but arousable. She was oriented to person, place, month and age. She is able to hold both arms up against gravity with good strength. She is able to hold her legs up against gravity as well. Patient had difficulty identifying objects (pen, watch, glove) and her speech is slow but comprehensible. Point of care glucose was 107. I did speak to the patient's over the phone. He is certain that he gave the patient carvedilol, furosemide, oxycodone vital signs and pantoprazole. The patient's did receive a prescription earlier from the emergency department for Flexeril and prednisone but he states that he did not open these prescriptions he is certain that he did not give his the wrong medications. Vital signs were unremarkable. Physical examination revealed a women who was somnolent but arousable, she did have dysarthric speech and occasional error and word finding. She had dysmetria cerebellar exam. Differential diagnosis: ?Includes but is not limited to stroke, TIA, accidental drug ingestion, metabolic disorder, seizure, metabolic disorder, urinary tract infection Course: 17:00 My independent interpretation patient's laboratory evaluation as follows: Normocytic anemia with an H&H of 9.5 and 28.5, low platelet count a 156,000. Coags normal. Bicarb elevated 33. BUN elevated 19 with a normal creatinine of 1.32. LFTs were normal. Troponin was detectable but not elevated at 10. Nonfasting lipid panel was normal. Urinalysis was positive for protein. Microscopic revealed no bacteria. Urine tox screen is positive for opiates and oxycodone-the patient is prescribed oxycodone for chronic pain. Ethanol was below detectable limits. CT scan of the brain revealed no acute bleed or infarct. CT angiogram of the head revealed no retrievable clots which is reassuring. CT angiogram of the neck did reveal ED to 90% stenosis of the left common carotid artery at the bifurcation and proximal internal left carotid artery. The patient's NIH stroke scale was 3. I did discuss the patient's presentation and possible use of TNK with our covering stroke neurologist, Dr. Krishnamurthy. His impression was that the patient's presentation was very atypical for stroke and recommended admission for further workup for possible toxic metabolic cause versus seizure. Given this differential and low NIH stroke scale, the patient was not a TNK candidate and I did discuss this with the patient's . I did discuss the patient's presentation with the covering hospitalist, his Dayday Jean and the patient was admitted to the hospitalist service for further treatment. Admission/Observation Consideration of admission/observation: Escalation of care including admission/observation considered (Yes) Consult Healthcare Provider Management of the patient was discussed with: Hospitalist (Dr. Riccardo Naylor) Independent Interpretation I performed an independent interpretation of an: EKG Interpretation: My independent interpretation of the patient's 12 EKG done on 02/19/2025 at 16:18 hours is as follows: Sinus rhythm with a rate of 73, prolonged OK interval 218 milliseconds, normal QRS duration seen and QTC interval, poor tracing with wandering baseline, no ST segment elevation, no ST segment depression, no significant T-wave abnormalities, no PACs, no PVCs My independent interpretation patient's one-view chest x-ray is as follows: No acute disease Radiology Impression Discussion of test interpretation with radiology: I have reviewed the radiologist's reading. Radiologist Impression: CT of the head without intravenous contrast Comparison: None Findings: The ventricles and sulci are prominent, consistent with generalized cerebral parenchymal volume loss. The ventricles are symmetric and the basilar cisterns are intact. Mild periventricular, deep and subcortical white matter hypodensities are nonspecific but statistically reflect the sequela of chronic small vessel ischemic change. Remote right basal ganglia lacunar infarct. No intracranial hemorrhage, extra-axial fluid collection, midline shift or mass-effect is evident. No evidence of acute large vessel or territorial ischemia. Brainstem and cerebellum unremarkable. Vascular calcifications indicate intracranial atherosclerosis. The imaged portion of the paranasal sinuses demonstrated sphenoid sinusitis on the left. No mastoid effusions are demonstrated. The orbital contents are unremarkable. Calvarium is intact. Impression: 1. No CT evidence of acute intracranial abnormality. 2. Cerebral volume loss, intracranial atherosclerotic disease and mild sequela of chronic small vessel ischemic disease. This document has been electronically signed by: Blane Gooden MD on 02/19/2025 16:36:52 CLINICAL HISTORY: Left facial droop, R O stroke CT angiography head with IV contrast. 3-D postprocessing Comparison: CT/SR - HEAD STROKE_BRAIN (ADULT) - 02/19/25 16:03 EDT Findings: Angiographic images of the head: The terminal portion of both internal carotid arteries are patent. The anterior and middle cerebral arteries are patent along their proximal aspects. Posteriorly within the head, the intradural vertebral arteries, basilar artery and endoscopy nurse are patent. No aneurysm or arteriovenous shunting lesion is appreciated. Impression: 1. Wide patency of the intracranial arterial circulation. 2. No intracranial aneurysm or AVM. 3. Unremarkable CT enhancement of the brain parenchyma. CT angiography neck with contrast. 3-D postprocessing Comparison: CT/SR - HEAD STROKE_BRAIN (ADULT) - 02/19/25 16:03 EDT Findings: Angiographic images of the neck: There is probable critical stenosis proximal left subclavian artery with reconstitution of the vessel distally. The bilateral common carotid arteries are patent. Both carotid bulbs are widely patent. Both ICAs follow normal course and caliber through their distal cervical segments. Calcified plaque in the proximal internal carotid arteries bilaterally. Posteriorly within the neck, the vertebral arteries are codominant with patent origins. Both vessels follow normal course and caliber through their suboccipital segments. Sphenoid sinusitis. No mastoid effusions. Adenoids are not enlarged. Normal Fossa of Rosenmuller. Epiglottis and palatine tonsils are not enlarged. No subglottic masses. Normal thyroid gland. Osseous structures intact. Lung apices unremarkable. Impression: 1. There is less than 50% stenosis of the right common carotid artery bifurcation and proximal right internal carotid artery based on NASCET criteria. 2. There is 80-90% stenosis of the left common carotid artey bifurcation and proximal left internal carotid artery based on NASCET criteria. 3. Wide patency of the cervical vertebral arteries. 4. Suspect critical stenosis origin of the left subclavian artery. There is reconstitution of the vessel distally. This document has been electronically signed by: Blane Gooden MD on 02/19/2025 17:02:16 1 view chest x-ray. Comparison: CR/SR - XR CHEST 2 VIEWS - 06/11/22 12:33 EST Findings: Normal lung volumes. Lungs are clear. No pneumothorax or pleural effusion. Heart size normal. No passive venous congestion. No midline shift or tracheal deviation. No acute fracture. Impression: 1. No acute cardiopulmonary disease. This document has been electronically signed by: Blane Gooden MD on 02/19/2025 17:33:28 Independent Historian Clinical information obtained from an independent historian. History obtained from or confirmed by: Spouse Chronic Conditions Patient?s care impacted by: Hypertension and Other (High cholesterol) NIH Stroke Scale Internal: Initial- Upon Arrival Level of Consciousness: Not Alert; but arousable by minor stimulation Level of Consciousness Questions: Answers both questions correctly Level of Consciousness Commands: Performs both tasks correctly Best Gaze: Normal Visual: No visual loss Facial Palsy: Normal Motor Arm (Right): No drift Motor Arm (Left): No drift Motor Leg (Right): No drift Motor Leg (Left): No drift Limb Ataxia: Present in one limb Sensory: Normal Best Language: Mild to moderate aphasia Dysarthia: Normal Extinction and Inattention: No abnormality Score: 3 Critical Care Time Critical Care Time Critical Care Time: Yes Total Critical Care Time: 45 Attestation: Critical Care: The patient was critically ill with a high probability of imminent or life threatening deterioration. I spent greater than 30 minutes of discontinuous time evaluating the patient,delivering critical care at the bedside, discussing and evaluating pertinent data with consultants. Critical care time does not include time spent performing separately billable procedures or teaching. Total time spent performing critical care was 45 minutes. Discharge Plan Discharge Clinical Impression: Acute alteration in mental status Patient Disposition: Admitted As Inpatient Print Language: Thai
[2025-02-19] MEDS: iohexoL 350 MG/ML 100 ML INFUS..BTL 70 ML IV (16:22)
[2025-02-19 16:27] VITALS: BP 122/78; PULSE 60; PULSE 70; RESP 16; TEMP 36.7; O2SAT 94; O2SAT 98; BMI 24.6
[2025-02-19 16:38] LABS: Prothrombin Time Whole Bld POC 11.6 sec (11.1-13.5); ~PT, ~INR - Anti Coag Clinic 1.0 (0.9-1.1)
[2025-02-19 16:44] LABS: MANUAL DIFF FLAG NO
[2025-02-19 16:52] LABS: Hematocrit 28.5 % (37.0-47.0); Hemoglobin 9.5 g/dl (12.0-16.0); Imm Gran Abs Auto 0.02 X10*3/uL (0.00-0.03); Imm Gran Pct Auto 0.4 % (0.0-0.4); Lymphocytes Absolute Auto 1.5 X10*3/uL (1.2-4.9); Mean Corpuscular HGB Conc 33.3 g/dl (31.0-35.0); Mean Corpuscular Hemoglobin 30.5 pg (27.0-33.0); Mean Corpuscular Volume 91.6 fL (80.0-98.0); NRBC Abs Auto 0.000 X10*3/uL (0.0-0.012); NRBC Pct Auto 0.0 /100WBC (0.0-0.2); Platelet Count 156 X10*3/uL (160-400); Red Blood Count 3.11 X10*6/uL (4.20-5.50); White Blood Count 5.6 X10*3/uL (4.8-10.8)
[2025-02-19 17:00] VITALS: BP 126/72; PULSE 63; RESP 18; TEMP 36.7; O2SAT 99
[2025-02-19 17:01] LABS: Alanine Aminotransferase 10 U/L (0-31); Albumin Level 4.2 g/dL (3.5-5.0); Alkaline Phosphatase 41 U/L (39-117); Anion Gap 11 (12-20); Aspartate Amino Transferase 21 U/L (5-31); Blood Urea Nitrogen 19 mg/dL (9-16); Calcium 8.9 mg/dL (8.4-10.2); Carbon Dioxide 33 mmol/L (22-29); Chloride 99 mmol/L (96-108); Cholesterol 149 mg/dL (<200); Creatinine Clr Calc Pharmacy 29.2; Estimated Glomerular Filt Rate 39; HDL Cholesterol 64 mg/dL (>40); Potassium 3.8 mmol/L (3.3-5.1); Sodium 139 mmol/L (135-145); Total Protein 6.5 g/dL (6.5-8.0); Triglycerides 92 mg/dL (<150)
[2025-02-19 17:07] LABS: Troponin-I High Sensitivity 10.0 ng/L (<3.5-17.0)
[2025-02-19 17:19] LABS: Appearance Urine Clear; Glucose Urine UA Negative (Negative); PH 6.5 (5.0-9.0); Specific Gravity - Urine >= 1.030 (1.005-1.025); UMIC TRIGGER UACC YES
[2025-02-19 17:21] LABS: INTERNATIONAL NORM RATIO 1.0 (0.9-1.1); Prothrombin Time 12.0 SEC (10.9-12.4)
[2025-02-19 17:23] LABS: Partial Thromboplastin Time 27.5 SEC (26.0-36.8)
[2025-02-19 17:25] VITALS: BP 136/32; PULSE 83; RESP 18; TEMP 36.7; O2SAT 97
--- OUTSIDE RECORDS SUMMARY | 2025-02-19 17:25 | XMS_ITS | Clinical Summary ---
Author Organization [facility] ity Address [address] [place] [address] Care Team Providers Care Engineering Lecturer Name Role Phone Chino Vasquez MD Primary Care Provider [phone] Social History Tobacco Use Types Packs/Day Years Used Date Smoking Tobacco: Never Assessed Comments Unknown Sex and Gender Information Value Date Recorded Sex Assigned at Not on file Legal Sex Female 12:15 PM EST Gender Identity Not on file Sexual Orientation Not on file Plan of Treatment Health Maintenance Due Date Last Done Comments DTaP,Tdap,and Td Vaccines (1 - Tdap) 11/03/1963 Pneumococcal Vaccine: 50+ Ye ars (1 of 1 - PCV) 1994 Zoster Vaccines (1 of 2) 1994 RSV Immunization Adult Patie nts (1 - 1-dose 75+ series) 11/03/2019 Falls Risk Assessment 06/25/2022 Osteoporosis Screening (Bone Density Screening) 06/25/2022 Social Influencers of Health Screening 06/25/2022 COVID-19 Vaccine (1 - 2023-2 5 season) 2024 Depression Screening 07/28/2024 Influenza Vaccine (#1) 2025 HIB Vaccines Aged Out No longer eligi ble based on patient's age to complete this topic HPV Vaccines Aged Out No longer eligi ble based on patient's age to complete this topic Hepatitis A Vaccines Aged Out No long er eligible based on patient's age to complete this topic Hepatitis B Vaccines Aged Out No long er eligible based on patient's age to complete this topic IPV Vaccines Aged Out No longer eligi ble based on patient's age to complete this topic MMR Vaccines Aged Out No longer eligi ble based on patient's age to complete this topic Meningococcal ACWY Vaccine Aged Out N o longer eligible based on patient's age to complete this topic Meningococcal B Vaccine Aged Out No l onger eligible based on patient's age to complete this topic RSV Immunization Patients Un erica 20 months Aged Out No longer eligible b ased on patient's age to complete this topic Varicella Vaccines Aged Out No longer eligible based on patient's age to complete this topic Care Teams Engineering Lecturer Relationship Specialty Start Date End Date Chino Vasquez MD [address] [place] PCP - General Cra 04/30/17
--- OUTSIDE RECORDS SUMMARY | 2025-02-19 17:25 | XMS_ITS | Patient Health Record ---
[facility] [place] Address [address] [place] [address] Care Team Providers Care Ceo Ziff Davis Name Role Phone Solange Starr Primary Care Provider Virginia Momin Unavailable [phone] Allergies Allergen (clinical drug ingredient) Drug/Non Drug Allergy documented on EMR Reaction Allergy Type Onset Date Status ibuprofen Advil irritated stomach Drug Allergy Active Aleve irritated stomach Drug Allergy Active Motrin irritated stomach Drug Allergy Active Reason For Referral No Information Medications Medication SIG (Take, Route, Frequency, Duration) Notes Start Date End Date Status Acetaminophen 325 MG 1 tablet as needed Orally every 4 hrs Not-Taking HYDROmorphone HCl 4 MG 1 tablet as neede d Orally Not-Taking Chlorthalidone 25 MG 1 tablet in the morning with food Orally Once a day; Duration: 30 day(s) Not-Taking Calcium Carbonate 500 MG 1 tablet Orally Once a day; Duration: 30 day(s) Not-Taking Albuterol Sulfate Un known Amlodipine & Diet Manage Prod 2.5 MG Orally Unknown Ezetimibe 10 MG 1 tablet Orally Once a day; Duration: 30 day(s) Active Euthyrox 125 MCG 1 tablet in the morning on an empty stomach Orally Once a day; Duration: 30 day(s) Active Carvedilol 6.25 MG 1 tablet with food Orally Twice a day; Duration: 30 day(s) Active FLUoxetine HCl 40 MG 1 capsule Orally On ce a day; Duration: 30 day(s) Active Rosuvastatin Calcium 10 MG 1 tablet Oral ly Once a day; Duration: 30 day(s) Active Clopidogrel Bisulfate 75 MG 1 tablet Orally Once a day; Duration: 30 day(s) Active Hydrocortisone 2.5 % as directed Externally Active Levothyroxine Sodium 125 MCG 1 tablet in the morning on an empty stomach Orally Once a day Active Atorvastatin Calcium Unknown Aspirin 81 MG 1 tablet Orally Once a day Active Cholecalciferol 25 MCG (1000 UT) 1 capsule Orally Once a day Active zzzCompression Stockings Unknown Gabapentin Unknown Beclomethasone Dipropionate Unknown Calcitonin ([place]) Unknown oxyCODONE HCl Active Lisinopril Unknown Tamoxifen Citrate 20 MG 1 tablet Orally Once a day Unknown Stool Softener Activ e Bevespi Aerosphere 9-4.8 MCG/ACT 2 puffs Inhalation Twice a day Active Calcium Active Vitamin D Active Docusate Sodium 100 MG 1 capsule as need ed Orally Once a day; Duration: 30 day(s) Not-Taking Cyanocobalamin 1000 MCG 1 tablet Orally Once a day; Duration: 30 day(s) Not-Taking Fluticasone Propionate HFA 110 MCG/ACT 1 puff Inhalation Twice a day Active Pantoprazole Sodium 20 MG 1 tablet Orall y Once a day Active Ammonium Lactate 12 % 1 application Externally Twice a day; Duration: 30 days Active Immunizations Vaccine Route Administration Date Status Comme nts Influenza Unknown 03/28/2024 Administered COVID-19 Pfizer BioNTech Vaccine Unknown 07/13/2021 Administered First Dose: 08/29/2020 Second Dose:09/19/20 Social History Tobacco Use: Social History Observation Description Date Details (start date - stop date) Never Smoker NA - NA Alcohol Screen Question Answer Notes Did you have a drink containing alcohol in the p ast year? No Points 0 Interpretation Negative Tobacco use other than smoking: Question Answer Notes Are you an other tobacco user? No Tobacco Control (Standard) Question Answer Notes Tobacco use: Nonsmoker Problems Problem Type SNOMED Code ICD Code Onset Dates Problem Status W/U Status Risk Notes Problem Plantar wart (85584243) Plantar wart (B07.0) Active confirmed Problem Bilateral atherosclerosis of arteries of lower limbs (disorder) (67994036495623656 ) 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) Active confirmed Vital Signs Blood pressure diastolic 80 mm Hg 01/25/2025 Height 4 ft 11 in in 01/25/2025 Blood pressure systolic 120 mm Hg 01/25/2025 Weight 134 lbs 01/25/2025 BMI 27.06 kg/m2 01/25/2025 Encounters Encounter Location Date Provider Diagnosis [address] [address] 05/12/2024 [place] Deep Tinea unguium B35.1 ; Pain in toe of left foot M79.675 ; Pain in toe of right foot M79.674 ; Right foot pain M79.671 and Plantar wart B07.[address] [address] 08/11/2024 [place] Adame Tinea unguium B35.1 ; Pain in toe of left foot M79.675 ; Pain in toe of right foot M79.674 ; Right foot pain M79.671 and Plantar wart B07.[address] [address] 01/25/2025 [place] Adame Tinea unguium B35.1 ; Plantar wart B07.0 ; Pain in toe of left foot M79.675 ; Pain in toe of right foot M79.674 ; Right foot pain M79.671 and Bilateral atherosclerosis of legs I70.[address] [address] 11/10/2024 [place] Adame Assessments Encounter Date Diagnosis (ICD Code) Assessment Notes Treatment Notes Treatment Clinical Notes Section Notes 05/12/2024 Tinea unguium (ICD-10 - B35.1) 05/12/2024 Pain in toe of left foot (ICD-10 - M79.675) 08/11/2024 Tinea unguium (ICD-10 - B35.1) 01/25/2025 Tinea unguium (ICD-10 - B35.1) 01/25/2025 Plantar wart (ICD-10 - B07.0) 01/25/2025 Pain in toe of left foot (ICD-10 - M79.675) 08/11/2024 Pain in toe of left foot (ICD-10 - M79.675) 05/12/2024 Pain in toe of right foot (ICD-10 - M79.674) 05/12/2024 Right foot pain (ICD-10 - M79.671) 08/11/2024 Pain in toe of right foot (ICD-10 - M79.674) 01/25/2025 Pain in toe of right foot (ICD-10 - M79.674) 01/25/2025 Right foot pain (ICD-10 - M79.671) 08/11/2024 Right foot pain (ICD-10 - M79.671) 05/12/2024 Plantar wart (ICD-10 - B07.0) 08/11/2024 Plantar wart (ICD-10 - B07.0) 01/25/2025 Bilateral atherosclerosis of legs (ICD-10 - I70.203) Plan Of Treatment Pending Test Test Name Order Date X ray : Foot, left 2V 06/07/2015 X ray : Foot, right 2V 06/07/2015 [id number] Destruction, 1-14 06/07/2015 64025-Fadm Destruction, 1-14 01/16/2017 [id number] Plate 03/24/2017 33657- Debride <25 sq cm 04/07/2017 Next Appt Details Provider Name:Virginia tamayo, 04/26/2025 02:30:00 PM, [address] [facility], [place], [address], Insurance Providers Payer Name Payer Address Payer Phone Subscriber Number Group Number Insured Name Patient Relationship to Insured Coverage Start Date Coverage End Date Medicare National [employer] [address] [place] [address] [phone] [id number] Lisa Damon Self - patient is the insured [facility] [address] [place] [address] [phone] [id number] Lisa Damon Self - patient is the insured Medical (General) History Medical History History ICD Code Arthritis asthma Back,Hip,and Knee pain Broken bones Cancer Hypertension Poor circulation Reflux Sciatica Thyroid disorder Measles Mumps Chicken pox Anemia CAD (Cholesterol) Cataracts Surgical History Surgery Date(Month/Year) breast surgery 2013 back surgery 2011, 2015 bypass surgery 04/2016 appendectomy- removed ends large and sma ll colon 12/21/2020 Hospitalization History Reason Date(Month/Year) [facility] virus 08/2022 [facility] gout 08/2022
[2025-02-19 17:33] LABS: Cannabinoid Screen Urine Not Detected (Not Detect)
[2025-02-19 17:34] LABS: Stroke Lab Use COMPLETE
[2025-02-19 17:40] VITALS: BP 113/67; PULSE 62; RESP 16; TEMP 36.7; O2SAT 100
--- NOTE | 2025-02-19 18:11 | PM.IMHP ---
History of Present Illness Date of Service: 02/19/25 Attending physician on admission: Raghu Naylor Chief Complaint: Unresponsive Lisa Damon is 79 years old woman with past medical history significant for right chronic shoulder pain on oxycodone, COPD on home oxygen 2 L/min, essential hypertension, depression, hypothyroidism and hyperlipidemia via EMS after she was found to be confused and barely responsive. This occurred around 3:30 PM. The patient takes oxycodone 3 times daily, usually around 7 a.m., 11 am and 3 pm. She also takes Equate brand motion sickness pills. HPI was mostly provided by patient's who was at bedside as the patient says that nothing is wrong with her. A stroke symptoms such as focal weakness, facial droop or speech difficulty were not reported. She denied any headache, chest pain, shortness on breath, fever, chills, abdominal pain, nausea, vomiting or diarrhea. She has an ongoing tobacco smoker. Did not report alcohol abuse. commented that sometime ago she had a similar event after her oxygen flow was increased resulting in CO2 retention. Patient is now awake and alert without any interventions. In the ED, she was found to have stable vital signs. Blood workup showed WBC of 5.6, hemoglobin of 9.5 (prior was 12.3 three years ago) and platelets 156. There are no significant electrolyte imbalances. CO2 is 33, anion gap 11, BUN 19 and creatinine 1.32. LFTs are normal. Troponin is 10.0. Urinalysis showed elevated specific gravity and protein 1+. There is no evidence of urinary tract infection. Urine drug screen is positive for opiates and oxycodone. ECG is remarkable for first-degree AV block LVH changes -QT interval is 451 ms, there are Q-waves in the inferior leads. CXR is negative. Head CT scan showed no acute intracranial abnormality, head and neck CTA showed 80-90% stenosis of the left common carotid artery bifurcation and proximal left internal carotid artery, less than 50% stenosis of the right common carotid artery bifurcation and proximal right internal carotid artery and suspect critical stenosis origin in the left subclavian artery. ED tx: None. Review of Systems Review of Systems: All 12 systems were reviewed and normal except as noted in HPI. 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 Meds Allergies Allergy/AdvReac Type Severity Reaction Status Date / Time No Known Allergies (No Known Allergy Verified 02/19/25 16:40 Allergies*) Active Medications: Current Medications Acetaminophen (Acetaminophen 325 Mg Tablet) 975 mg PO Q6H PRN PRN Reason: Pain, Mild 1-3,fever,headache Heparin Sodium (Porcine) (Heparin Sodium,Porcine 5,000 Unit/Ml Vial) 5,000 unit SUBCUT Q12H LUISA Sodium Chloride (0.9 % Sodium Chloride Flush 3 Ml Syringe) 3 ml IVFLUSH QSHIFT LUISA Home Medications ?Medication ?Instructions ?Recorded ?Confirmed ?Last Taken ?Type albuterol sulfate 90 mcg/actuation 180 mcg inhalation Q4H PRN 12/07/21 10/12/22 Unknown History aerosol inhaler (Ventolin HFA) Shortness Of Breath Or Wheezing carvedilol 25 mg tablet 25 mg PO BID 12/07/21 10/12/22 Unknown History clopidogrel 75 mg tablet 75 mg PO DAILY 12/07/21 10/12/22 Unknown History ezetimibe 10 mg tablet 10 mg PO DAILY 12/07/21 10/12/22 Unknown History fluoxetine 40 mg capsule 40 mg PO DAILY 12/07/21 10/12/22 Unknown History pantoprazole 20 mg tablet,delayed 20 mg PO BID 12/07/21 10/12/22 Unknown History release rosuvastatin 10 mg tablet 10 mg PO BEDTIME 12/07/21 10/12/22 Unknown History furosemide 20 mg tablet 20 mg PO BID 02/05/22 10/12/22 Unknown History potassium chloride 20 mEq 20 meq PO DAILY 10/12/22 10/12/22 Unknown History tablet,extended release(part/cryst) valsartan 80 mg tablet mg PO 10/12/22 10/12/22 Unknown History levothyroxine 112 mcg tablet 112 mcg PO DAILY 02/19/25 Unknown History oxycodone 5 mg tablet 5 mg PO TID PRN Pain 02/19/25 Unknown History Physical Exam Vital Signs and Narrative: Vital Signs: Last Vital Signs Temp 98.0 F 02/19/25 17:40 Pulse 62 02/19/25 17:40 Resp 16 02/19/25 17:40 BP 113/67 02/19/25 17:40 Pulse Ox 100 02/19/25 17:40 O2 Del Method Nasal Cannula 02/19/25 17:40 O2 Flow Rate 2 02/19/25 17:40 Oxygen Flow Rate 2 02/19/25 16:27 BMI result Body Mass Index 24.6 Constitutional - Alert and awake but somewhat drowsy. Nasal cannula in place. HEENT - PERRL, EOMI Heart - RRR, No murmurs Lungs - Normal lung expansion, Normal respiratory effort, No respiratory distress, CTA bilaterally Abdomen - NT / ND; +BS; No rebound or guarding Extremities - no calf tenderness bilaterally, no swelling Musculoskeletal - Normal inspection, normal ROM Skin - Warm/Dry Neurological - Alert & oriented x3. Moving all extremities spontaneously. Normal speech. Psychological - Depressed affect Results Labs 02/19/25 16:35 02/19/25 16:35 Labs: Laboratory Results - last 24 hr 02/19/25 02/19/25 02/19/25 16:34 16:35 17:07 MCV 91.6 MCH 30.5 MCHC 33.3 RDW 13.1 Plt Count 156 L D MPV 8.8 L Immature Gran % (Auto) 0.4 Neut % (Auto) 59.3 Lymph % (Auto) 26.4 Cass % (Auto) 9.9 Eos % (Auto) 3.5 Baso % (Auto) 0.5 Lymph # (Auto) 1.5 Cass # (Auto) 0.6 Eos # (Auto) 0.2 Baso # (Auto) 0.0 Abs Immat Gran (auto) 0.02 Absolute Neuts (auto) 3.3 Absolute Nucleated RBC 0.000 Nucleated RBC % (auto) 0.0 PT Whole Blood PT 11.6 INR Whole Blood INR 1.0 APTT Anion Gap 11 L Estim Creat Clear Calc 29.2 Estimated GFR 39 Random Glucose 84 Calcium 8.9 Total Bilirubin 0.5 Direct Bilirubin 0.2 AST 21 ALT 10 Alkaline Phosphatase 41 Total Protein 6.5 Albumin 4.2 Triglycerides 92 Cholesterol 149 LDL Cholesterol, Calc 67 HDL Cholesterol 64 Urine Color Yellow Urine Appearance Clear Urine pH 6.5 Ur Specific [place] >= 1.030 H Urine Protein 30 (1+) H Urine Glucose (UA) Negative Urine Ketones Negative Urine Blood Negative Urine Nitrite Negative Ur Leukocyte Esterase Negative Urine RBC 0-2 Urine WBC 0-5 Ur Squamous Epith Cells 0-2 Urine Bacteria None Seen Hyaline Casts 3-5 Urine Opiates Screen POSITIVE H Ur Buprenorphine Scrn Not Detected Ur Oxycodone Screen Positive H Urine Methadone Screen Not Detected Urine Fentanyl Screen Not Detected Ur Barbiturates Screen Not Detected Ur Phencyclidine Scrn Not Detected Ur Amphetamines Screen Not Detected U Benzodiazepines Scrn Not Detected Urine Cocaine Screen Not Detected U Marijuana (THC) Screen Not Detected Ethyl Alcohol < 10 02/19/25 17:08 MCV MCH MCHC RDW Plt Count MPV Immature Gran % (Auto) Neut % (Auto) Lymph % (Auto) Cass % (Auto) Eos % (Auto) Baso % (Auto) Lymph # (Auto) Cass # (Auto) Eos # (Auto) Baso # (Auto) Abs Immat Gran (auto) Absolute Neuts (auto) Absolute Nucleated RBC Nucleated RBC % (auto) PT 12.0 Whole Blood PT INR 1.0 Whole Blood INR APTT 27.5 Anion Gap Estim Creat Clear Calc Estimated GFR Random Glucose Calcium Total Bilirubin Direct Bilirubin AST ALT Alkaline Phosphatase Total Protein Albumin Triglycerides Cholesterol LDL Cholesterol, Calc HDL Cholesterol Urine Color Urine Appearance Urine pH Ur Specific [place] Urine Protein Urine Glucose (UA) Urine Ketones Urine Blood Urine Nitrite Ur Leukocyte Esterase Urine RBC Urine WBC Ur Squamous Epith Cells Urine Bacteria Hyaline Casts Urine Opiates Screen Ur Buprenorphine Scrn Ur Oxycodone Screen Urine Methadone Screen Urine Fentanyl Screen Ur Barbiturates Screen Ur Phencyclidine Scrn Ur Amphetamines Screen U Benzodiazepines Scrn Urine Cocaine Screen U Marijuana (THC) Screen Ethyl Alcohol Assessment and Plan (1) Acute encephalopathy: Status: Acute (2) Chronic right shoulder pain: Status: Acute Plan Lisa Damon is 79 y/o woman presents with: Acute toxic encephalopathy, improving. Likely secondary to medications: Oxycodone + dimenhydrinate in the setting of underlying advanced COPD/likely CO2 retenter. Telemetry. Pulse oximetry. Check venous blood gas. Patient and informed about the dangers of mixing oxycodone with other sedatives. Significant bilateral carotid disease. Less than 50 % stenosis of the right common carotid artery bifurcation and proximal right internal carotid artery, 80-90% stenosis of the left common carotid artery bifurcation and proximal left internal carotid artery, suspect critical stenosis origin of the left subclavian artery. Per patient , patient follows up with vascular surgeon at [facility]. [facility] records requested. COPD. Continue home O2 2 L/min. Continue home inhalers Chronic right shoulder. Continue oxycodone 5 mg PO q8h (avoid to use it too frequently). Essential hypertension. Continue carvedilol and valsartan. Anemia, likely chronic. Continue to monitor closely for now. Hypothyroidism. Continue levothyroxine. GERD. Continue pantoprazole. Renal insufficiency, likely CKD stage 4. Will hold furosemide for now and give LR 500 ml bolus and recheck renal function. Hyperlipidemia. Continue rosuvastatin. Depression. Continue fluoxetine. Code status: Full DVT prophylaxis: Heparin Patient will need hospitalization for at least 2 midnights for acute toxic encephalopathy evaluation and treatment; she needs continuous monitoring of neurological status and adjustment of medications. Quality Stroke Does the patient have a stroke diagnosis?: No VTE Prior VTE?: No VTE Risk Level:: Medical - moderate - high VTE Device Contraindication: Treatment Not Indicated VTE Drug Contraindication: N/A - Med Ordered
[2025-02-19] MEDS: Lactated Ringers 500 ML 999 ML IV (18:54)
[2025-02-19 18:56] LABS: Venous Blood Gas Refer to POC result
[2025-02-19 18:57] LABS: VBG HCO3 38 mmol/L (22-26); VBG O2 % Saturation 60.0 %
--- NOTE | 2025-02-19 19:22 | PC.NURSE ---
This chief underwriter assumed care of this Pt at 1900. Pt A&Ox3, denies any pain at this time.
--- NOTE | 2025-02-19 19:22 | PC.NURSE ---
MRI screening form complete and faxed.
[2025-02-19 20:48] VITALS: BMI 25.0
[2025-02-19] MEDS: 0.9 % Sodium Chloride Flush 3 ML SYRINGE IVFLUSH (21:13)
[2025-02-19 21:20] VITALS: BP 142/71; PULSE 73; RESP 17; TEMP 36.6; O2SAT 100
[2025-02-20] VITALS (9 sets, daily range): BP systolic 126–157; BP diastolic 60–86; PULSE 59–81; RESP 16–20; TEMP 36.4–36.8; O2SAT 93–100
[2025-02-20 06:55] LABS: MANUAL DIFF FLAG NO
[2025-02-20 07:11] LABS: Hematocrit 30.0 % (37.0-47.0); Hemoglobin 9.7 g/dl (12.0-16.0); Imm Gran Abs Auto 0.03 X10*3/uL (0.00-0.03); Imm Gran Pct Auto 0.4 % (0.0-0.4); Lymphocytes Absolute Auto 1.6 X10*3/uL (1.2-4.9); Mean Corpuscular HGB Conc 32.3 g/dl (31.0-35.0); Mean Corpuscular Hemoglobin 29.9 pg (27.0-33.0); Mean Corpuscular Volume 92.6 fL (80.0-98.0); NRBC Abs Auto 0.000 X10*3/uL (0.0-0.012); NRBC Pct Auto 0.0 /100WBC (0.0-0.2); Platelet Count 156 X10*3/uL (160-400); Red Blood Count 3.24 X10*6/uL (4.20-5.50); White Blood Count 6.7 X10*3/uL (4.8-10.8)
[2025-02-20 07:23] LABS: Anion Gap 11 (12-20); Blood Urea Nitrogen 14 mg/dL (9-16); Calcium 9.2 mg/dL (8.4-10.2); Carbon Dioxide 31 mmol/L (22-29); Chloride 102 mmol/L (96-108); Creatinine Clr Calc Pharmacy 35.6; Estimated Glomerular Filt Rate 48; Magnesium 2.4 mg/dL (1.6-2.6); Potassium 4.4 mmol/L (3.3-5.1); Sodium 140 mmol/L (135-145)
[2025-02-20 08:04] LABS: Reticulocytes Absolute 0.052 X10*6/uL (0.026-0.095)
[2025-02-20 08:19] LABS: Iron 52 mcg/dL (30-160); Percent Iron Saturation 17 % (15-50); Total Iron Binding Capacity 306 mcg/dL (228-428); Unsaturated Iron Binding 254 ug/dL
[2025-02-20 08:34] LABS: Ferritin 20 ng/mL (10-250)
--- NOTE | 2025-02-20 09:57 | MHC.CM.PN ---
IMM 02/20/25, Pt. lives with her , she does not use home health care services. For DME, she has home O2 from [employer], and a walker which she uses sometimes. PCP confirmed: Solange Starr. to transport home at [place], DCP: home, self care, CM to follow for DC needs.
--- NOTE | 2025-02-20 11:15 | HO.PM.IMPN ---
Subjective Subjective Date of Service: 02/20/25 Interval History: confusion resolved c/o weakness denies taking excess oxycodone Review of Systems Review of Systems: Yes all other systems are reviewed and are negative Physical Exam Vital Signs: Vital Signs: Last Vital Signs Temp 98.0 F 02/20/25 10:53 Pulse 65 02/20/25 10:53 Resp 16 02/20/25 10:53 BP 135/65 02/20/25 10:53 Pulse Ox 100 02/20/25 10:53 O2 Del Method Nasal Cannula 02/20/25 10:53 O2 Flow Rate 2 02/20/25 10:53 Oxygen Flow Rate 2 02/19/25 16:27 BMI result Body Mass Index 25.0 Gen: in no acute distress HEENT: sclera anicteric, moist mucus membranes Neck: supple Lungs: clear to auscultation bilaterally Heart: regular rate and rhythm, no murmurs Abd: soft, non-tender, non-distended Ext: no edema Skin: warm/well-perfused Neuro: alert and oriented x3, no focal findings Psych: appropriate affect Objective Data Active Medications Acetaminophen (Acetaminophen 325 Mg Tablet) 975 mg PO Q6H PRN PRN Reason: Pain, Mild 1-3,fever,headache Heparin Sodium (Porcine) (Heparin Sodium,Porcine 5,000 Unit/Ml Vial) 5,000 unit SUBCUT Q12H [facility] Last Admin: 02/20/25 10:33 Dose: 5,000 unit Documented By: PACHECO Sodium Chloride (0.9 % Sodium Chloride Flush 3 Ml Syringe) 3 ml IVFLUSH QSHIFT [facility] Last Admin: 02/20/25 07:21 Dose: Not Given Documented By: PACHECO Non-Admin Reason: Previously Administered Labs 02/20/25 06:37 02/20/25 06:37 Labs: Laboratory Results - last 24 hr 02/19/25 02/19/25 02/19/25 16:34 16:35 17:07 MCV 91.6 MCH 30.5 MCHC 33.3 RDW 13.1 Plt Count 156 L D MPV 8.8 L Immature Gran % (Auto) 0.4 Neut % (Auto) 59.3 Lymph % (Auto) 26.4 Sanders % (Auto) 9.9 Eos % (Auto) 3.5 Baso % (Auto) 0.5 Lymph # (Auto) 1.5 Sanders # (Auto) 0.6 Eos # (Auto) 0.2 Baso # (Auto) 0.0 Abs Immat Gran (auto) 0.02 Absolute Neuts (auto) 3.3 Absolute Nucleated RBC 0.000 Nucleated RBC % (auto) 0.0 Absolute Retic Percent Retic Immature Retic Fraction Retic Hgb Equivalent PT Whole Blood PT 11.6 INR Whole Blood INR 1.0 APTT VBG pH VBG pCO2 VBG pO2 VBG HCO3 VBG O2 Saturation VBG Base Excess Anion Gap 11 L Estim Creat Clear Calc 29.2 Estimated GFR 39 Random Glucose 84 Calcium 8.9 Magnesium Iron TIBC % Saturation Unsat Iron Binding Ferritin Total Bilirubin 0.5 Direct Bilirubin 0.2 AST 21 ALT 10 Alkaline Phosphatase 41 Lactate Dehydrogenase Total Protein 6.5 Albumin 4.2 Triglycerides 92 Cholesterol 149 LDL Cholesterol, Calc 67 HDL Cholesterol 64 Urine Color Yellow Urine Appearance Clear Urine pH 6.5 Ur Specific Ragan >= 1.030 H Urine Protein 30 (1+) H Urine Glucose (UA) Negative Urine Ketones Negative Urine Blood Negative Urine Nitrite Negative Ur Leukocyte Esterase Negative Urine RBC 0-2 Urine WBC 0-5 Ur Squamous Epith Cells 0-2 Urine Bacteria None Seen Hyaline Casts 3-5 Urine Opiates Screen POSITIVE H Ur Buprenorphine Scrn Not Detected Ur Oxycodone Screen Positive H Urine Methadone Screen Not Detected Urine Fentanyl Screen Not Detected Ur Barbiturates Screen Not Detected Ur Phencyclidine Scrn Not Detected Ur Amphetamines Screen Not Detected U Benzodiazepines Scrn Not Detected Urine Cocaine Screen Not Detected U Marijuana (THC) Screen Not Detected Ethyl Alcohol < 10 02/19/25 02/19/25 02/20/25 17:08 18:53 06:37 MCV 92.6 MCH 29.9 MCHC 32.3 RDW 13.1 Plt Count 156 L MPV 8.9 L Immature Gran % (Auto) 0.4 Neut % (Auto) 62.4 Lymph % (Auto) 23.5 Sanders % (Auto) 10.2 Eos % (Auto) 3.1 Baso % (Auto) 0.4 Lymph # (Auto) 1.6 Sanders # (Auto) 0.7 Eos # (Auto) 0.2 Baso # (Auto) 0.0 Abs Immat Gran (auto) 0.03 Absolute Neuts (auto) 4.2 Absolute Nucleated RBC 0.000 Nucleated RBC % (auto) 0.0 Absolute Retic 0.052 Percent Retic 1.6 Immature Retic Fraction 16.9 H Retic Hgb Equivalent 33.9 PT 12.0 Whole Blood PT INR 1.0 Whole Blood INR APTT 27.5 VBG pH 7.44 H VBG pCO2 56 VBG pO2 37 VBG HCO3 38 H VBG O2 Saturation 60.0 VBG Base Excess 12.8 Anion Gap 11 L Estim Creat Clear Calc 35.6 Estimated GFR 48 Random Glucose 87 Calcium 9.2 Magnesium 2.4 Iron 52 TIBC 306 % Saturation 17 Unsat Iron Binding 254 Ferritin 20 Total Bilirubin Direct Bilirubin AST ALT Alkaline Phosphatase Lactate Dehydrogenase 161 Total Protein Albumin Triglycerides Cholesterol LDL Cholesterol, Calc HDL Cholesterol Urine Color Urine Appearance Urine pH Ur Specific Ragan Urine Protein Urine Glucose (UA) Urine Ketones Urine Blood Urine Nitrite Ur Leukocyte Esterase Urine RBC Urine WBC Ur Squamous Epith Cells Urine Bacteria Hyaline Casts Urine Opiates Screen Ur Buprenorphine Scrn Ur Oxycodone Screen Urine Methadone Screen Urine Fentanyl Screen Ur Barbiturates Screen Ur Phencyclidine Scrn Ur Amphetamines Screen U Benzodiazepines Scrn Urine Cocaine Screen U Marijuana (THC) Screen Ethyl Alcohol Assessment and Plan (1) Acute encephalopathy: Status: Acute Plan d2 for 79yo F with COPD on home O2 2Lpm, chronic should pain on oxycodone, HTN, depression, hypothyroidism, and HLD sent in after being found confused and somnolent, suspected due to oxycodone + dimenhydrinate causing excess CO2 retention acute toxic-metabolic encephalopathy - continue to monitor; caution with oxycodone; goal SaO2 no greater then 92%; PT consult ANU? CKD4? - hydrate, recheck BMP tomorrow bilateral carotid disease, L>R - followed by [facility], continue clopidogrel chronic pain - oxycodone HTN - carvedilol + valsartan HLD - ezetimibe + rosuvastatin hypothyroidism - continue LT4 GERD - PPI depression - fluoxetine VTE ppx - UFH dispo - PT eval In my clinical judgment, the patient requires continued inpatient hospitalization for the following reasons: encephalopathy, renal insufficienc Total time managing care of this patient today: 35 minutes. Quality Stroke Does the patient have a stroke diagnosis?: No VTE Prior VTE?: No VTE Risk Level:: Medical - moderate - high VTE Device Contraindication: Treatment Not Indicated VTE Drug Contraindication: N/A - Med Ordered
[2025-02-20] MEDS: Lactated Ringers 1,000 ML 50 ML IVCONT (11:37)
--- NOTE | 2025-02-20 13:13 | PHA.MEDREC ---
Pharmacy Consult ? Medication Reconciliation Pharmacy has completed the medication reconciliation. Spoke to patient and at bedside to confirm medication list. Both patient and are adamant that patient is still taking clopidogrel, ondansetron, potassium chloride and rosuvastatin even though there are no pharmacy claims for them (Dr. Matias was made aware). confirmed that patient no longer takes valsartan. Last dose of medication was yesterday 02/19/25 AM.
[2025-02-20] MEDS: oxyCODONE HCl Immed Release 5 MG TABLET PO ×2 (13:42→21:41)
--- NOTE | 2025-02-20 13:54 | PC.NURSE ---
Addendum entered by Epi Bermudez RN 02/20/25 18:22: pt stated tylenol has no effect Addendum entered by Epi Bermudez RN 02/20/25 18:18: IVF on hold per . spoke with pt and pt's at bedside. pt c/o chronic pain and requested prn oxy to be Q6. md was informed. Original Note: per ok to stop fluids
[2025-02-20] MEDS: Albuterol Sulfate 90 MCG 8 GM INHALER 1 PUFF INHALE (17:16)
[2025-02-20] MEDS: 0.9 % Sodium Chloride Flush 3 ML SYRINGE IVFLUSH (21:47)
[2025-02-21 03:50] VITALS: BP 140/99; PULSE 76; RESP 20; TEMP 36.2; O2SAT 97
[2025-02-21 06:07] LABS: Venous Blood Gas Refer to POC result
[2025-02-21 06:09] LABS: VBG HCO3 32 mmol/L (22-26); VBG O2 % Saturation 56.0 %
[2025-02-21] MEDS: oxyCODONE HCl Immed Release 5 MG TABLET PO ×3 (06:16→22:05)
[2025-02-21 06:53] LABS: Hematocrit 32.3 % (37.0-47.0); Hemoglobin 10.2 g/dl (12.0-16.0); Mean Corpuscular HGB Conc 31.6 g/dl (31.0-35.0); Mean Corpuscular Hemoglobin 29.2 pg (27.0-33.0); Mean Corpuscular Volume 92.6 fL (80.0-98.0); NRBC Abs Auto 0.020 X10*3/uL (0.0-0.012); NRBC Pct Auto 0.3 /100WBC (0.0-0.2); Platelet Count 172 X10*3/uL (160-400); Red Blood Count 3.49 X10*6/uL (4.20-5.50); White Blood Count 6.4 X10*3/uL (4.8-10.8)
[2025-02-21 07:07] LABS: Anion Gap 19 (12-20); Blood Urea Nitrogen 10 mg/dL (9-16); Calcium 9.7 mg/dL (8.4-10.2); Carbon Dioxide 27 mmol/L (22-29); Chloride 102 mmol/L (96-108); Creatinine Clr Calc Pharmacy 39.2; Estimated Glomerular Filt Rate 54; Potassium 4.5 mmol/L (3.3-5.1); Sodium 143 mmol/L (135-145)
[2025-02-21 07:10] VITALS: BP 119/82; PULSE 68; RESP 16; TEMP 36.2; O2SAT 99
[2025-02-21 07:53] LABS: Folate 8.5 ng/mL (> or = 4.0); Vitamin B12 1970 pg/mL (200-900)
[2025-02-21] MEDS: 0.9 % Sodium Chloride Flush 3 ML SYRINGE IVFLUSH ×2 (09:17→15:58)
[2025-02-21] MEDS: iohexoL 350 MG/ML 100 ML INFUS..BTL IV (10:27)
[2025-02-21 11:08] LABS: Glucose, Whole Blood 107 mg/dL (60-115)
[2025-02-21 11:24] VITALS: BP 141/67; PULSE 75; RESP 18; TEMP 37.1; O2SAT 100
[2025-02-21] MEDS: Lactated Ringers 1,000 ML 50 ML IVCONT (12:11)
--- NOTE | 2025-02-21 13:43 | P.PNIM_ITS ---
Subjective Subjective Date of Service: 02/21/25 Interval History: developed acute abd pain today with distension Review of Systems Review of Systems: Yes all other systems are reviewed and are negative Physical Exam 2 Vital Signs: Vital Signs: Last Vital Signs Temp 98.8 F 02/21/25 11:24 Pulse 75 02/21/25 11:24 Resp 18 02/21/25 11:24 BP 141/67 H 02/21/25 11:24 Pulse Ox 100 02/21/25 11:24 O2 Del Method Nasal Cannula 02/21/25 11:24 O2 Flow Rate 1 02/21/25 11:24 Oxygen Flow Rate 2 02/19/25 16:27 BMI result Body Mass Index 25.0 Gen: in pain HEENT: sclera anicteric, moist mucus membranes Neck: supple Lungs: clear to auscultation bilaterally Heart: regular rate and rhythm, no murmurs Abd: distended, generalized tenderness, palpable cord lower abdomen Ext: no edema Skin: warm/well-perfused Neuro: alert and oriented x3, no focal findings Psych: appropriate affect Objective Data Active Medications Acetaminophen (Acetaminophen 325 Mg Tablet) 975 mg PO Q6H PRN PRN Reason: Pain, Mild 1-3,fever,headache Last Admin: 02/20/25 11:45 Dose: 975 mg Documented By: PACHECO Albuterol Sulfate (Albuterol Sulfate 90 Mcg 8 Gm Inhaler) 1 puff INHALE Q4H PRN PRN Reason: Shortness Of Breath Or Wheezing Last Admin: 02/20/25 17:16 Dose: 1 puff Documented By: PACHECO Atorvastatin Calcium (Atorvastatin Calcium 40 Mg Tablet) 40 mg PO BEDTIME [facility] Last Admin: 02/20/25 21:42 Dose: 40 mg Documented By: KARLENE Carvedilol (Carvedilol 25 Mg Tablet) 25 mg PO BID [facility]; Protocol Last Admin: 02/21/25 11:24 Dose: Not Given Documented By: AGUSTINA Non-Admin Reason: Physician Held Med Clopidogrel Bisulfate (Clopidogrel Bisulfate 75 Mg Tablet) 75 mg PO DAILY [facility] Last Admin: 02/21/25 11:24 Dose: Not Given Documented By: AGUSTINA Non-Admin Reason: Physician Held Med Ezetimibe (Ezetimibe 10 Mg Tablet) 10 mg PO DAILY [facility] Last Admin: 02/21/25 11:24 Dose: Not Given Documented By: AGUSTINA Non-Admin Reason: Physician Held Med Fluoxetine HCl (Fluoxetine Hcl 20 Mg Capsule) 40 mg PO DAILY [facility] Last Admin: 02/21/25 11:24 Dose: Not Given Documented By: AGUSTINA Non-Admin Reason: Physician Held Med Heparin Sodium (Porcine) (Heparin Sodium,Porcine 5,000 Unit/Ml Vial) 5,000 unit SUBCUT Q12H [facility] Last Admin: 02/21/25 09:17 Dose: 5,000 unit Documented By: AGUSTINA Lactated Ringer's (Lr) 1,000 mls @ 50 mls/hr IVCONT .Q20H [facility] Last Admin: 02/21/25 12:11 Dose: 50 mls/hr Documented By: SUSAN Levothyroxine Sodium (Levothyroxine Sodium 112 Mcg Tablet) 112 mcg PO DAILY@0600 [facility] Last Admin: 02/21/25 06:15 Dose: 112 mcg Documented By: KARLENE Omeprazole (Omeprazole 20 Mg Capsule.) 20 mg PO BID@0630,1630 [facility] Last Admin: 02/21/25 06:15 Dose: 20 mg Documented By: KARLENE Oxycodone HCl (Oxycodone Hcl Immed Release 5 Mg Tablet) 5 mg PO TID PRN PRN Reason: Pain, Severe (Pain Scale 7-10) Last Admin: 02/21/25 06:16 Dose: 5 mg Documented By: KARLENE Sodium Chloride (0.9 % Sodium Chloride Flush 3 Ml Syringe) 3 ml IVFLUSH QSHIFT [facility] Last Admin: 02/21/25 09:17 Dose: 3 ml Documented By: AGUSTINA Trolamine Salicylate (Trolamine Salicylate 10 % Cream 85 Gm Tube) 1 appl TOPICAL QID PRN; Protocol PRN Reason: shoulder Labs 02/21/25 06:02 02/21/25 06:02 Labs: Laboratory Results - last 24 hr 02/19/25 02/21/25 02/21/25 15:58 06:02 06:06 MCV 92.6 MCH 29.2 MCHC 31.6 RDW 13.2 Plt Count 172 MPV 9.0 L Absolute Nucleated RBC 0.020 H Nucleated RBC % (auto) 0.3 H VBG pH 7.41 VBG pCO2 50 VBG pO2 34 VBG HCO3 32 H VBG O2 Saturation 56.0 VBG Base Excess 6.7 Anion Gap 19 Estim Creat Clear Calc 39.2 Estimated GFR 54 POC Glucose 107 Random Glucose 97 Calcium 9.7 Vitamin B12 1970 H Folate 8.5 Assessment and Plan (1) Acute encephalopathy: Status: Acute Plan d3 for 79yo F with COPD on home O2 2Lpm, chronic should pain on oxycodone, HTN, depression, hypothyroidism, and HLD sent in after being found confused and somnolent, suspected due to oxycodone + dimenhydrinate causing excess CO2 retention acute abd pain - CT A/P with patent femoral/femoral bypass graft, diverticulosis without diverticulitis; consult Gen-Surg acute toxic-metabolic encephalopathy - continue to monitor; caution with oxycodone; goal SaO2 no greater then 92%; PT consult pending ANU - resolved after hydration bilateral carotid disease, L>R - followed by [facility], continue clopidogrel chronic pain - oxycodone HTN - carvedilol + valsartan HLD - ezetimibe + rosuvastatin hypothyroidism - continue LT4 GERD - PPI depression - fluoxetine VTE ppx - UFH dispo - PT eval pending In my clinical judgment, the patient requires continued inpatient hospitalization for the following reasons: abd pain Total time managing care of this patient today: 35 minutes. Quality Stroke Does the patient have a stroke diagnosis?: No VTE Prior VTE?: No VTE Risk Level:: Medical - moderate - high VTE Device Contraindication: Treatment Not Indicated VTE Drug Contraindication: N/A - Med Ordered
[2025-02-21 15:03] VITALS: BP 143/68; PULSE 79; RESP 18; TEMP 37.8; O2SAT 100
--- NOTE | 2025-02-21 15:43 | MHC.CM.PN ---
PER MD ROUNDS, PT NOT MEDICALLY CLEARED DUE TO CONTINUED ABDOMINAL PAIN DCP: HOME VIA PRIVATE TRANSPORT
[2025-02-21 19:26] VITALS: BP 166/58; PULSE 70; RESP 16; TEMP 37.1; O2SAT 99
[2025-02-21 23:25] VITALS: BP 122/61; PULSE 60; RESP 18; TEMP 37.1; O2SAT 96
[2025-02-22] VITALS (12 sets, daily range): BP systolic 92–164; BP diastolic 54–86; PULSE 49–75; RESP 16–22; TEMP 36.4–37.1; O2SAT 95–100
--- NOTE | 2025-02-22 07:50 | PM.CNGS ---
History of Present Illness Consult details Consult date: 02/22/25 <Anuradha Plummer PA-C - Last Filed: 02/22/25 07:59> Reason for consult: abdominal pain <Anuradha Plummer PA-C - Last Filed: 02/22/25 07:59> Requesting physician: Mane Matias <Anuradha Plummer PA-C - Last Filed: 02/22/25 07:59> Narrative: 79 year old female with COPD on home O2 2L, chronic shoulder pain on oxycodone, HTN, depression, hypothyroidism, and hyperlipidemia who was brought in to the ED after being found confused and somnolent. She was admitted to the hospitalist service for acute toxic-metabolic encephalopathy suspected due to oxycodone and dimenhydrinate causing excess CO2 retention. She apparently began to complain of lower abdominal pain yesterday and had difficulty voiding. CT scan abd/pelvis was obtained which showed no acute intraabdominal pathology, patent femoral/femoral bypass graft. She began to void on her own and her pain resolved. She feels well this morning and denies any abdominal pain. She denies nausea, vomiting, diarrhea, fevers, chills. She is hungry. <CONY Escalante Last Filed: 02/22/25 07:59> Review of Systems Review of Systems: Yes all other systems are reviewed and are negative <Anuradha Plummer PA-C - Last Filed: 02/22/25 07:59> [facility] Past Medical History Medical History: Medical History (Updated 02/22/25 @ 07:59 by Anuradha Plummer PA-C) Hypothyroidism Hyperlipidemia Carotid artery disease Essential hypertension <Anuradha Plummer PA-C - Last Filed: 02/22/25 07:59> Social History Social History: Social History Household Members: Spouse Housing: Condominium Do you presently have visiting nurse or other home services: No Patient Tobacco Use Status: Never used Tobacco service: No Current occupational status: 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 <CONY Escalante Last Filed: 02/22/25 07:59> Meds Allergies/Adverse reactions: Allergies Allergy/AdvReac Type Severity Reaction Status Date / Time No Known Allergies (No Known Allergy Verified 02/19/25 16:40 Allergies*) <Anuradha Plummer PA-C - Last Filed: 02/22/25 07:59> Active Medications: Current Medications Albuterol Sulfate (Albuterol Sulfate 90 Mcg 8 Gm Inhaler) 1 puff INHALE Q4H PRN PRN Reason: Shortness Of Breath Or Wheezing Last Admin: 02/20/25 17:16 Dose: 1 puff Atorvastatin Calcium (Atorvastatin Calcium 40 Mg Tablet) 40 mg PO BEDTIME [facility] Last Admin: 02/21/25 19:56 Dose: 40 mg Carvedilol (Carvedilol 25 Mg Tablet) 25 mg PO BID [facility]; Protocol Last Admin: 02/22/25 07:39 Dose: Not Given Clopidogrel Bisulfate (Clopidogrel Bisulfate 75 Mg Tablet) 75 mg PO DAILY [facility] Last Admin: 02/21/25 11:24 Dose: Not Given Ezetimibe (Ezetimibe 10 Mg Tablet) 10 mg PO DAILY [facility] Last Admin: 02/21/25 11:24 Dose: Not Given Fluoxetine HCl (Fluoxetine Hcl 20 Mg Capsule) 40 mg PO DAILY [facility] Last Admin: 02/21/25 11:24 Dose: Not Given Heparin Sodium (Porcine) (Heparin Sodium,Porcine 5,000 Unit/Ml Vial) 5,000 unit SUBCUT Q12H [facility] Last Admin: 02/21/25 19:57 Dose: 5,000 unit Lactated Ringer's (Lr) 1,000 mls @ 50 mls/hr IVCONT .Q20H [facility] Last Admin: 02/22/25 02:59 Dose: Not Given Acetaminophen (Ofirmev) 1,000 mg in 100 mls @ 400 mls/hr IV Q6H [facility] Stop: 02/22/25 11:29 Last Infusion: 02/22/25 06:40 Dose: Infused Levothyroxine Sodium (Levothyroxine Sodium 112 Mcg Tablet) 112 mcg PO DAILY@0600 [facility] Last Admin: 02/22/25 06:25 Dose: 112 mcg Ondansetron HCl (Ondansetron Hcl 4 Mg/2 Ml Vial) 4 mg IVPUSH Q4H PRN PRN Reason: Nausea and Vomiting Last Admin: 02/21/25 15:57 Dose: 4 mg Oxycodone HCl (Oxycodone Hcl Immed Release 5 Mg Tablet) 5 mg PO TID PRN PRN Reason: Pain, Severe (Pain Scale 7-10) Last Admin: 02/21/25 22:05 Dose: 5 mg Pantoprazole Sodium (Pantoprazole Sodium 40 Mg/10 Ml Vial) 40 mg IVPUSH BID@0630,1630 [facility] Last Admin: 02/22/25 06:25 Dose: 40 mg Sodium Chloride (0.9 % Sodium Chloride Flush 3 Ml Syringe) 3 ml IVFLUSH QSHIFT [facility] Last Admin: 02/21/25 23:03 Dose: Not Given Trolamine Salicylate (Trolamine Salicylate 10 % Cream 85 Gm Tube) 1 appl TOPICAL QID PRN; Protocol PRN Reason: shoulder <Anuradha Plummer PA-C - Last Filed: 02/22/25 07:59> Home medications: Home Medications ?Medication ?Instructions ?Recorded ?Confirmed ?Last Taken ?Type albuterol sulfate 90 mcg/actuation 180 mcg inhalation Q4H PRN 12/07/21 02/20/25 Unknown History aerosol inhaler (Ventolin HFA) Shortness Of Breath Or Wheezing carvedilol 25 mg tablet 25 mg PO BID 12/07/21 02/20/25 02/19/25 History clopidogrel 75 mg tablet 75 mg PO DAILY 12/07/21 02/20/25 02/19/25 History ezetimibe 10 mg tablet 10 mg PO DAILY 12/07/21 02/20/25 02/19/25 History fluoxetine 40 mg capsule 40 mg PO DAILY 12/07/21 02/20/25 02/19/25 History pantoprazole 20 mg tablet,delayed 20 mg PO BID 12/07/21 02/20/25 02/19/25 History release rosuvastatin 10 mg tablet 10 mg PO BEDTIME 12/07/21 02/20/25 02/18/25 History furosemide 20 mg tablet 20 mg PO BID 02/05/22 02/20/25 02/19/25 History potassium chloride 20 mEq 20 meq PO DAILY 10/12/22 02/20/25 02/19/25 History tablet,extended release(part/cryst) levothyroxine 112 mcg tablet 112 mcg PO DAILY 02/19/25 02/20/25 02/19/25 History oxycodone 5 mg tablet 5 mg PO TID PRN Pain 02/19/25 02/20/25 Unknown History <Anuradha Plummer PA-C [employer] Last Filed: 02/22/25 07:59> Physical Exam Vital Signs: Vital Signs: Last Vital Signs Temp 98.6 F 02/22/25 07:16 Pulse 49 L 02/22/25 07:39 Resp 16 02/22/25 07:16 BP 152/86 H 02/22/25 07:35 Pulse Ox 100 02/22/25 07:16 O2 Del Method Nasal Cannula 02/22/25 07:16 O2 Flow Rate 1 02/22/25 07:16 Oxygen Flow Rate 2 02/19/25 16:27 BMI result Body Mass Index 25.0 <Anuradha Plummer PA-C [employer] Last Filed: 02/22/25 07:59> Const: General: comfortable, no acute distress and alert <LESTER Escalante [employer] Last Filed: 02/22/25 07:59> Orientation/consciousness: patient oriented x3 <LESTER Escalante [employer] Last Filed: 02/22/25 07:59> Resp: Effort & Inspection: normal respiratory effort <LESTER Escalante [employer] Last Filed: 02/22/25 07:59> GI: Other: palpable cord in groin <LESTER Escalante [employer] Last Filed: 02/22/25 07:59> Inspection: Yes normal to inspection and No distended <Anuradha Plummer PA-C [employer] Last Filed: 02/22/25 07:59> Palpation (GI): Soft to palpation, nontender, no guarding and not rigid <Anuradha Plummer PA-C [employer] Last Filed: 02/22/25 07:59> Percussion: Yes normal to percussion <Anuradha Plummer PA-C [employer] Last Filed: 02/22/25 07:59> Skin: General skin exam: no rashes or lesions noted <Anuradha Plummer PA-C [employer] Last Filed: 02/22/25 07:59> Neuro: General: patient oriented x3 <LESTER Escalante [employer] Last Filed: 02/22/25 07:59> Extrem: General: Yes no clubbing, cyanosis or edema <CONY Escalante Last Filed: 02/22/25 07:59> Results Labs Result diagrams: 02/21/25 06:02 02/21/25 06:02 <Anuradha Plummer PA-C - Last Filed: 02/22/25 07:59> Labs: Abnormal lab results 02/21/25 Range/Units 06:02 Vitamin B12 1970 H (200-900) pg/mL Urine 02/19/25 Range/Units 17:07 Urine Color Yellow Urine Appearance Clear Urine pH 6.5 (5.0-9.0) Ur Specific Duson >= 1.030 H (1.005-1.025) Urine Protein 30 (1+) H (Neg-Trace) mg/dL Urine Glucose (UA) Negative (Negative) mg/dL All other labs normal. <CONY Escalante Last Filed: 02/22/25 07:59> Imaging Abdomen CT scan report/results: report reviewed and image reviewed <CONY Escalante Last Filed: 02/22/25 07:59> Assessment and Plan (1) Abdominal pain: Status: Acute <Anuradha Plummer PA-C - Last Filed: 02/22/25 07:59> 79 year old female with COPD on home O2 2L, chronic shoulder pain on oxycodone, HTN, depression, hypothyroidism, and hyperlipidemia admitted for acute toxic-metabolic encephalopathy suspected due to oxycodone and dimenhydrinate causing excess CO2 retention c/o abdominal pain yesterday. CT scan shows no acute intraabdominal pathology. Patient currenly denies any abdominal pain and her abdomen is very benign. She is tolerating liquids and is hungry. Can advance diet as tolerated. No acute surgical indication. <CONY Escalante Last Filed: 02/22/25 07:59> 79 year old female with COPD on home O2 2L, chronic shoulder pain on oxycodone, HTN, depression, hypothyroidism, and hyperlipidemia admitted for acute toxic-metabolic encephalopathy suspected due to oxycodone and dimenhydrinate causing excess CO2 retention c/o abdominal pain yesterday. CT scan shows no acute intraabdominal pathology. Patient currenly denies any abdominal pain and her abdomen is very benign. She is tolerating liquids and is hungry. Can advance diet as tolerated. No acute surgical indication. PT seen agree feeling better and cord structure is her fem-fem bypass - uncomplicated by ct scan <Skylar Maldonado MD - Last Filed: 02/23/25 00:18> Procedures Date of Service Date of Service: 02/22/25 <Anuradha Plummer PA-C - Last Filed: 02/22/25 07:59> 02/23/25 <Skylar Maldonado MD - Last Filed: 02/23/25 00:18>
[2025-02-22] MEDS: 0.9 % Sodium Chloride Flush 3 ML SYRINGE IVFLUSH ×3 (08:21→19:47)
--- NOTE | 2025-02-22 11:52 | HO.PM.IMPN ---
Subjective Subjective Date of Service: 02/22/25 Interval History: abd pain resolved Physical Exam Exam: Exam: General: AO X 3, no acute distress Resp: basilar crackles bilateral, no accessory muscles used CVS: S1,S2,RRR GI: soft, non tender, non distended Neuro: motor grossly intact, alert Psych: appropriate affect, appropriate insight Vital Signs: Vital Signs: Last Vital Signs Temp 98.7 F 02/22/25 11:04 Pulse 66 02/22/25 11:04 Resp 18 02/22/25 11:04 BP 102/67 02/22/25 11:04 Pulse Ox 96 02/22/25 11:04 O2 Del Method Nasal Cannula 02/22/25 11:04 O2 Flow Rate 1 02/22/25 11:04 Oxygen Flow Rate 2 02/19/25 16:27 BMI result Body Mass Index 25.0 Objective Data Active Medications Albuterol Sulfate (Albuterol Sulfate 90 Mcg 8 Gm Inhaler) 1 puff INHALE Q4H PRN PRN Reason: Shortness Of Breath Or Wheezing Last Admin: 02/20/25 17:16 Dose: 1 puff Documented By: PACHECO Atorvastatin Calcium (Atorvastatin Calcium 40 Mg Tablet) 40 mg PO BEDTIME [facility] Last Admin: 02/21/25 19:56 Dose: 40 mg Documented By: CODY Carvedilol (Carvedilol 25 Mg Tablet) 25 mg PO BID [facility]; Protocol Last Admin: 02/22/25 07:39 Dose: Not Given Documented By: CLIFF Non-Admin Reason: Decreased Heart Rate Clopidogrel Bisulfate (Clopidogrel Bisulfate 75 Mg Tablet) 75 mg PO DAILY [facility] Last Admin: 02/22/25 08:20 Dose: 75 mg Documented By: CLIFF Ezetimibe (Ezetimibe 10 Mg Tablet) 10 mg PO DAILY [facility] Last Admin: 02/22/25 08:20 Dose: 10 mg Documented By: CLIFF Fluoxetine HCl (Fluoxetine Hcl 20 Mg Capsule) 40 mg PO DAILY [facility] Last Admin: 02/22/25 08:20 Dose: 40 mg Documented By: CLIFF Heparin Sodium (Porcine) (Heparin Sodium,Porcine 5,000 Unit/Ml Vial) 5,000 unit SUBCUT Q12H [facility] Last Admin: 02/22/25 08:21 Dose: 5,000 unit Documented By: CLIFF Levothyroxine Sodium (Levothyroxine Sodium 112 Mcg Tablet) 112 mcg PO DAILY@0600 [facility] Last Admin: 02/22/25 06:25 Dose: 112 mcg Documented By: CODY Ondansetron HCl (Ondansetron Hcl 4 Mg/2 Ml Vial) 4 mg IVPUSH Q4H PRN PRN Reason: Nausea and Vomiting Last Admin: 02/22/25 08:23 Dose: 4 mg Documented By: CLIFF Oxycodone HCl (Oxycodone Hcl Immed Release 5 Mg Tablet) 5 mg PO TID PRN PRN Reason: Pain, Severe (Pain Scale 7-10) Last Admin: 02/21/25 22:05 Dose: 5 mg Documented By: CODY Pantoprazole Sodium (Pantoprazole Sodium 40 Mg/10 Ml Vial) 40 mg IVPUSH BID@0630,1630 [facility] Last Admin: 02/22/25 06:25 Dose: 40 mg Documented By: CODY Sodium Chloride (0.9 % Sodium Chloride Flush 3 Ml Syringe) 3 ml IVFLUSH QSHIFT [facility] Last Admin: 02/22/25 08:21 Dose: 3 ml Documented By: CLIFF Trolamine Salicylate (Trolamine Salicylate 10 % Cream 85 Gm Tube) 1 appl TOPICAL QID PRN; Protocol PRN Reason: shoulder Labs 02/21/25 06:02 02/21/25 06:02 Labs: Laboratory Results - last 24 hr 02/21/25 16:10 Lactic Acid 1.0 Assessment and Plan (1) Acute alteration in mental status: Status: Acute Plan 79F PMH chf with recovered EF, CAD s/p TIBURCIO to LAD 2015, COPD, severe persistent asthma, PVD s/p stent and femoral bypass 2016, HTN, hld, CKD III, graves s/p KIRK now with hypothyroid, chronic pain, presented with AMS Acute toxic metabolic encephalopathy Due to hypercapnia and oxycodone Resolved Acute abdominal pain Resolved CT abdomen negative, surgery appreciated Advance diet as tolerated Acute kidney injury on CKD 3 Resolved CAD and Peripheral vascular disease Continue antiplatelet and statin CHF with recovered ejection fraction Decrease carvedilol to 12.5 mg b.i.d. due to bradycardia Now with crackles after IV fluids, check chest x-ray History of Graves disease status post radiation therapy now hypothyroid Continue levothyroxine Mood disorder Continue fluoxetine Deconditioning PT eval DVT prophylaxis with heparin subQ Full code reason for continued hospitalization: Crackles, PT eval pending Quality Stroke Does the patient have a stroke diagnosis?: No VTE Prior VTE?: No VTE Risk Level:: Medical - moderate - high VTE Device Contraindication: Treatment Not Indicated VTE Drug Contraindication: N/A - Med Ordered
[2025-02-22] MEDS: oxyCODONE HCl Immed Release 5 MG TABLET PO ×2 (16:12→20:32)
[2025-02-23 03:17] VITALS: BP 171/75; PULSE 58; RESP 18; TEMP 36.4; O2SAT 98
[2025-02-23] MEDS: oxyCODONE HCl Immed Release 5 MG TABLET PO (05:57)
[2025-02-23 07:05] VITALS: BP 158/88; PULSE 58; RESP 17; TEMP 36.4; O2SAT 99
[2025-02-23 08:06] VITALS: BP 154/86; PULSE 62
[2025-02-23] MEDS: 0.9 % Sodium Chloride Flush 3 ML SYRINGE IVFLUSH (08:07)
--- NOTE | 2025-02-23 10:52 | P.CDIM_ITS ---
PROVIDER RESPONSE TEXT: To clarify, the appropriate diagnosis supported by the clinical indicators: Chronic Respiratory failure is/was present and is a clinical diagnosis based on (please include this additional support in the medical record) QUERY TEXT: PHYSICIAN'S DOCUMENTATION REQUEST Date of Query: 02/23/2025 10:45 AM EDT Patient Name: Lisa Damon Admit Date: 02/19/2025 Dear Axel Wolf MD, A review of the medical record indicates additional documentation may be needed. Please review below and update the documentation accordingly. The patient's respiratory clinical indicators were the following: on 2 L oxygen at home PMH COPD respiratory rate on 2L 16-22 SAT 93-100 % Based on the above information and the recognized standard for respiratory failure could you please verify this diagnoses is still accurate and reflective of the patient's condition to ensure quality of the medical record. Chronic Respiratory failure is/was present and is a clinical diagnosis based on (please include this additional support in the medical record) After study, Chronic respiratory failure has been ruled out Other (explain) Clinically unable to determine (explain) Thank you, Marissa Porras RN Use of terms such as suspected, likely, concern for, or probable (associated with a specific diagnosis that is being evaluated, monitored, or treated as if it exists) are acceptable and can be coded in the inpatient setting, when documented at the time of discharge. Please use your independent medical judgment in providing your response. THIS QUERY IS PART OF THE PERMANENT MEDICAL RECORD
[2025-02-23 11:15] VITALS: BP 168/74; PULSE 61; RESP 18; TEMP 36.2; O2SAT 99
--- NOTE | 2025-02-23 11:16 | MHC.CM.PN ---
Pt is medically cleared for discharge home with new [facility] services, pt is in agreement with the discharge plan. Her will transport her home today. Second IMM given 02/23.
--- NOTE | 2025-02-23 11:22 | P.DS_ITS ---
DS: Providers Provider Date of Service: 02/23/25 Date of admission: 02/19/25 17:35 Date of discharge: 02/23/25 Primary care physician: Solange Starr NP Consults: 02/21/25 12:22 Consult to General Surgery Routine Consulting Provider[place] [facility] Reason for consultation: abd pain x1d, palpable cord from bypass graft DS: Diagnosis Discharge Diagnosis (1) Abdominal pain: Status: Acute DS: Summary Hospital Course Hospital Course: from initial hpi: 79F PMH chf with recovered EF, CAD s/p TIBURCIO to LAD 2015, COPD, severe persistent asthma, PVD s/p stent and femoral bypass 2016, HTN, hld, CKD III, graves s/p KIRK now with hypothyroid, chronic pain, presented via EMS after she was found to be confused and barely responsive. This occurred around 3:30 PM. The patient takes oxycodone 3 times daily, usually around 7 a.m., 11 am and 3 pm. She also takes Equate brand motion sickness pills. HPI was mostly provided by patient's who was at bedside as the patient says that nothing is wrong with her. A stroke symptoms such as focal weakness, facial droop or speech difficulty were not reported. She denied any headache, chest pain, shortness on breath, fever, chills, abdominal pain, nausea, vomiting or diarrhea. She has an ongoing tobacco smoker. Did not report alcohol abuse. commented that sometime ago she had a similar event after her oxygen flow was increased resulting in CO2 retention. Patient is now awake and alert without any interventions. In the ED, she was found to have stable vital signs. Blood workup showed WBC of 5.6, hemoglobin of 9.5 (prior was 12.3 three years ago) and platelets 156. There are no significant electrolyte imbalances. CO2 is 33, anion gap 11, BUN 19 and creatinine 1.32. LFTs are normal. Troponin is 10.0. Urinalysis showed elevated specific gravity and protein 1+. There is no evidence of urinary tract infection. Urine drug screen is positive for opiates and oxycodone. ECG is remarkable for first-degree AV block LVH changes -QT interval is 451 ms, there are Q-waves in the inferior leads. CXR is negative. Head CT scan showed no acute intracranial abnormality, head and neck CTA showed 80-90% stenosis of the left common carotid artery bifurcation and proximal left internal carotid artery, less than 50% stenosis of the right common carotid artery bifurcation and proximal right internal carotid artery and suspect critical stenosis origin in the left subclavian artery. ED tx: None. hospital course: Patient was admitted for acute toxic metabolic encephalopathy due to combination of acute hypercapnia and oxycodone use. Patient's mental status returned to baseline. Course complicated by acute abdominal pain which resolved spontaneously. CT abdomen was negative. Was seen by surgery recommended advancing diet which patient tolerated. For acute kidney injury on CKD 3 resolved with IV fluids, we will restart maintenance diuretics on discharge. For coronary disease and peripheral vascular disease was continued on antiplatelet and statin. For CHF with recovered ejection fraction her carvedilol was decreased from 25 mg b.i.d. to 12.5 mg b.i.d. due to bradycardia. For history of Graves disease status post radiation therapy now hypothyroid was continued on levothyroxine. For mood disorder was continued on fluoxetine. Patient is feeling better will be discharged home with VNA. Time Attestation Discharge Coordination Time (in mins): 33 Quality: Safe Use of Opioids Does Pt have an Active Cancer Diagnosis on the Problem List?: No Quality: Stroke Does the patient have a stroke diagnosis?: No Physical Exam Exam: Exam: General: AO X 3, no acute distress Resp: basilar crackles bilateral, no accessory muscles used CVS: S1,S2,RRR GI: soft, non tender, non distended Neuro: motor grossly intact, alert Psych: appropriate affect, appropriate insight Vital Signs: Vital Signs: Last Vital Signs Temp 97.1 F 02/23/25 11:15 Pulse 61 02/23/25 11:15 Resp 18 02/23/25 11:15 BP 168/74 H 02/23/25 11:15 Pulse Ox 99 02/23/25 11:15 O2 Del Method Nasal Cannula 02/23/25 11:15 O2 Flow Rate 1 02/23/25 11:15 Oxygen Flow Rate 2 02/19/25 16:27 BMI result Body Mass Index 25.0 Discharge Plan Discharge Anticipated Discharge Date/Time: 02/23/25 11:19 Patient Disposition: Home Health Service Discharge Diagnosis: ams Referrals: [facility] [Outside] - 1 Week Solange Starr NP [Primary Care Provider, Internal Medicine] - 1 Week Discharge Medications: New carvedilol 12.5 mg Tablet 12.5 mg PO BID Qty: 180 0RF Protocol: Hold for SBP/HR < HOLD for SBP < : 90 HOLD for HR < : 60 Continued levothyroxine 112 mcg tablet 112 mcg PO DAILY oxycodone 5 mg tablet 5 mg PO TID PRN (Reason: Pain) potassium chloride 20 mEq tablet,ER particles/crystals 20 meq PO DAILY ondansetron 4 mg tablet,disintegrating 4 mg PO Q8H PRN (Reason: nausea and vomiting) Qty: 20 0RF furosemide 20 mg tablet 20 mg PO BID albuterol sulfate [Ventolin HFA] 90 mcg/actuation HFA aerosol inhaler 180 mcg inhalation Q4H PRN (Reason: Shortness Of Breath Or Wheezing) rosuvastatin 10 mg tablet 10 mg PO BEDTIME ezetimibe 10 mg tablet 10 mg PO DAILY fluoxetine 40 mg capsule 40 mg PO DAILY pantoprazole 20 mg tablet,delayed release (DR/EC) 20 mg PO BID clopidogrel 75 mg tablet 75 mg PO DAILY Discontinued carvedilol 25 mg tablet 25 mg PO BID Discharge Orders: Discharge Order (Routine); Ordered 02/23/25 Ordered By: Axel Wolf Diet: Advance to usual diet Activity on Discharge: As tolerated Stand Alone Forms: Patient Portal Discharge page Print Language: Turkmen Care Plan Goals: [facility] Concerns: Altered mental status, bradycardia Plan of Treatment: Carvedilol decreased to 12.5 mg b.i.d. Assessment: See above
--- NOTE | 2025-02-23 11:24 | P.F2F_ITS ---
Service Date Service Date: 02/23/25 Encounter Date of encounter: 02/23/25 Reasons for Services Signs and symptoms assessed: weakness due to hopsital stay Reason for senior living: medication management, medication treatment and teach disease management Reason for physical therapy: home safety and mobility and therapeutic exercises Homebound: Leaving the home is medically contraindicated at this time without the asist of a device and/or another person due th the listed conditions above and below. Reason homebound: weakness related to hospital stay Certification: Based on the above findings, I certify that this patient is confined to the home and needs intermittent senior living care, physical therapy and/or speech therapy, or continues to need occupational therapy. The patient is under my care, and I have initiated the establishment of the plan of care. The patient will be followed by a physician who will periodically review the plan of care. Time Spent With Patient Time: Total time managing care of this patient today ____ minutes.
== END 2025-02-23 14:38 | disposition home health service (06) | DRG 92 ==
LOC: HO.ED 18:01 → HO.EDOVER 18:05 → HO.IMC 19:51
PROVIDERS: Family Medicine; Admitting Provider Internal Medicine; Emergency Provider Emergency Medicine Emergency Medical Services; PCP Nurse Practitioner Family; Visit Provider Internal Medicine
DX: G92.8 Other toxic encephalopathy (principal); I13.0 Hypertensive heart and chronic kidney disease with heart failure and stage 1 through stage 4 chronic kidney disease, or unspecified chronic kidney disease; I50.22 Chronic systolic (congestive) heart failure; J96.12 Chronic respiratory failure with hypercapnia; N17.9 Acute kidney failure, unspecified; E78.5 Hyperlipidemia, unspecified; G89.29 Other chronic pain; F32.A Depression, unspecified; I73.9 Peripheral vascular disease, unspecified; T45.0X5A Adverse effect of antiallergic and antiemetic drugs, initial encounter; E89.0 Postprocedural hypothyroidism; I65.23 Occlusion and stenosis of bilateral carotid arteries; R10.9 Unspecified abdominal pain; N18.30 Chronic kidney disease, stage 3 unspecified; T40.2X5A Adverse effect of other opioids, initial encounter; D63.1 Anemia in chronic kidney disease; I25.10 Atherosclerotic heart disease of native coronary artery without angina pectoris; Z79.02 Long term (current) use of antithrombotics/antiplatelets; Z79.890 Hormone replacement therapy; Z79.899 Other long term (current) drug therapy
CPT/HCPCS: 36415; 70450; 70496; 70498; 70551; 71045; 74177; 80048; 80061; 80076; 80307; 81001; 82607; 82728; 82746; 82803; 82947; 83540; 83605; 83615; 83735; 84484; 85025; 85027; 85045; 85610; 85730; 93005; 94640; 97162; 99285; J0131; J1644; J2270; J2405; J2470; J7120; Q9967

== ENCOUNTER → 2025-02-19 16:03 | Outpatient (BNV) | payer MEDICARE, SELFPAY | PROVIDERS: Emergency Provider Emergency Medicine Emergency Medical Services; Visit Provider Radiology Diagnostic Radiology | DX: I65.22 Occlusion and stenosis of left carotid artery (principal); R29.810 Facial weakness; I67.2 Cerebral atherosclerosis; R41.82 Altered mental status, unspecified | CPT/HCPCS: 70551 ==

== ENCOUNTER → 2025-02-19 16:03 | Outpatient (BNV) | payer MEDICARE, SELFPAY | PROVIDERS: Admitting Provider Internal Medicine; Emergency Provider Emergency Medicine Emergency Medical Services; PCP Nurse Practitioner Family; Visit Provider Internal Medicine Cardiovascular Disease | DX: I44.0 Atrioventricular block, first degree (principal); I51.7 Cardiomegaly | CPT/HCPCS: 93010 ==

== ENCOUNTER 2025-02-19 17:35 | Outpatient (BNV) | payer MEDICARE, SELFPAY | END 2025-02-22 10:51 | PROVIDERS: Admitting Provider Internal Medicine; Emergency Provider Emergency Medicine Emergency Medical Services; PCP Nurse Practitioner Family; Visit Provider Radiology Diagnostic Radiology | DX: R06.89 Other abnormalities of breathing (principal) | CPT/HCPCS: 71045 ==

== ENCOUNTER 2025-02-19 17:35 | Outpatient (BNV) | payer MEDICARE, SELFPAY | END 2025-02-21 09:21 | PROVIDERS: Admitting Provider Internal Medicine; Emergency Provider Emergency Medicine Emergency Medical Services; PCP Nurse Practitioner Family; Visit Provider Radiology Diagnostic Radiology | DX: K57.30 Diverticulosis of large intestine without perforation or abscess without bleeding (principal) | CPT/HCPCS: 74177 ==

== ENCOUNTER → 2025-02-19 17:35 | Outpatient (BNV) | payer MEDICARE, SELFPAY | PROVIDERS: Admitting Provider Internal Medicine; Emergency Provider Emergency Medicine Emergency Medical Services; PCP Nurse Practitioner Family; Visit Provider Internal Medicine | DX: R41.82 Altered mental status, unspecified (principal) | CPT/HCPCS: 99223; 99232; 99233 ==

== ENCOUNTER → 2025-02-19 17:35 | Outpatient (BNV) | payer MEDICARE, SELFPAY | PROVIDERS: Admitting Provider Internal Medicine; Emergency Provider Emergency Medicine Emergency Medical Services; PCP Nurse Practitioner Family; Visit Provider Physician Assistant Surgical | DX: R10.9 Unspecified abdominal pain (principal) | CPT/HCPCS: 99222 ==

== ENCOUNTER 2025-03-20 09:07 | Inpatient (IN) | payer MEDICARE, SELFPAY ==
[2025-03-20] VITALS (9 sets, daily range): BP systolic 101–161; BP diastolic 66–97; PULSE 61–76; RESP 15–22; TEMP -17.7–37.7; O2SAT 70–100; BMI 27.2
--- NOTE | ~2025-03-20 | CT_ITS ---
CLINICAL HISTORY: lower abd pain CT abdomen and pelvis with contrast Comparison: CT/SR - CT ABDOMEN PELVIS WITH IV CONTRAST - 02/21/25 10:21 EDT Findings: The lung bases are clear. Subcentimeter cyst in the left lobe of the liver. Spleen, gallbladder, adrenal glands, pancreas are unremarkable. Kidneys enhance symmetrically and there is no hydronephrosis. No bowel obstruction, pneumoperitoneum, or pneumatosis. There are scattered colonic diverticula, however no evidence of diverticulitis. Extensive wall calcification of the abdominal aorta resulting in severe stenosis in the superior abdominal aorta at the level of the SMA origin. There is severe stenosis of the SMA origin. Celiac artery origin is patent. Plaquing of the bilateral renal artery origins. Dense plaquing of the aortic bifurcation with a stent in the left common iliac artery. There is severe stenosis of the grand traverse right common iliac artery. Suspect there is a occlusion beyond the origin of the right common iliac artery with reconstitution of the right SFA via a fem-fem graft. Graft is patent. Appendix not visualized. Cecum is in the midline midabdomen. No evidence of inflammatory change in the region of the cecum. Suspect the appendix is absent. Calcified fibroids in the uterus. Urinary bladder is unremarkable. Previous L5-S1 posterior fusion. There is grade 2 spondylolisthesis of L5 on S1 and there has been interbody fusion of the 2 levels. Moderate degenerative changes of the remainder of the lumbar spine. There is a disc osteophyte complex at L2-3 with resultant moderate canal stenosis with an AP diameter of 7 mm. IMPRESSION: No acute findings for lower abdominal pain. Severe stenosis of the upper abdominal aorta at the level of the SMA. Severe stenosis of the SMA origin. 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 Previous fem-fem bypass graft This document has been electronically signed by: Omar Valadez MD on 03/20/2025 12:37:54
--- NOTE | ~2025-03-20 | XR_ITS ---
CLINICAL HISTORY: SOB 1 view chest x-ray Comparison: None provided Findings: The lungs are clear. Normal size heart. Advanced degenerative changes of the right shoulder, unchanged. IMPRESSION: 1. No acute findings. This document has been electronically signed by: Omar Valadez MD on 03/20/2025 10:29:26
--- NOTE | ~2025-03-20 | CT_ITS ---
CLINICAL HISTORY: Pleuritic cp, + dimer CT angiography chest with contrast. 3D Postprocessing. Comparison: CR - XR CHEST 1V - 02/19/25 16:51 EDT Findings: Heart size is normal. Coronary artery calcifications are present. The thoracic aorta is normal caliber. No pulmonary artery filling defects. The visualized thyroid and mediastinum are unremarkable. Tiny bilateral ground-glass opacities, for example series 8, image 99. 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 Please see same-day CT abdomen and pelvis report for discussion of findings in the upper abdomen. The bones are intact. IMPRESSION: 1. No pulmonary emboli. 2. Minimal scattered ground-glass opacities which may be small area of infection or inflammation. This document has been electronically signed by: Omar Valadez MD on 03/20/2025 12:43:44
--- NOTE | 2025-03-20 09:23 | ECG_ITS ---
Test Reason : SHORT OF BREATH Blood Pressure : */* mmHG Vent. Rate : 61 BPM Atrial Rate : 61 BPM P-R Int : 228 ms QRS Dur : 96 ms QT Int : 408 ms P-R-T Axes : 58 20 54 degrees QTcB Int : 410 ms Sinus rhythm with 1st degree A-V block Cannot rule out Inferior infarct (cited on or before 11-Jun-2022) Abnormal ECG When compared with ECG of 19-Feb-2025 16:18, T wave inversion less evident in Inferior leads Referred By: Rufus Morris Electronically Signed By: LAUREEN AHSTON
--- NOTE | 2025-03-20 09:25 | ED.GENADULT ---
HPI - General Adult General Chief complaint: Abdominal Pain Stated complaint: LOW ABD PAIN X3-4W,HOME O2 PER EMS Time Seen by Provider: 03/20/25 09:09 Source: patient and EMS Mode of arrival: EMS Limitations: no limitations History of Present Illness ED Provider: DAYANA Morris HPI narrative: This is an 79-year-old female history of osteoporosis, mild cognitive impairment, major depression, hypertensive heart disease, hypothyroidism, GERD, B12 deficiency, chronic pain syndrome, CAD, asthma, anemia presenting to the emergency department with complaints of lower abdominal pain which is diffuse in nature throughout the lower abdomen she rates it a 6/10, constant and aching pain. Patient also complaining of shortness of breath feels like she can not catch her breath. Patient was discharged from hospital within the past month. She has been feeling overall unwell. She denies headache, vision changes, dizziness, weakness, chest pain, nausea, vomiting, changes in urinary or bowel habits Related Data Home Medications ?Medication ?Instructions ?Recorded ?Confirmed albuterol sulfate 90 mcg/actuation 180 mcg inhalation Q4H PRN 12/07/21 02/20/25 aerosol inhaler (Ventolin HFA) Shortness Of Breath Or Wheezing clopidogrel 75 mg tablet 75 mg PO DAILY 12/07/21 02/20/25 ezetimibe 10 mg tablet 10 mg PO DAILY 12/07/21 02/20/25 fluoxetine 40 mg capsule 40 mg PO DAILY 12/07/21 02/20/25 pantoprazole 20 mg tablet,delayed 20 mg PO BID 12/07/21 02/20/25 release rosuvastatin 10 mg tablet 10 mg PO BEDTIME 12/07/21 02/20/25 furosemide 20 mg tablet 20 mg PO BID 02/05/22 02/20/25 potassium chloride 20 mEq 20 meq PO DAILY 10/12/22 02/20/25 tablet,extended release(part/cryst) levothyroxine 112 mcg tablet 112 mcg PO DAILY 02/19/25 02/20/25 oxycodone 5 mg tablet 5 mg PO TID PRN Pain 02/19/25 02/20/25 Previous Rx's ?Medication ?Instructions ?Recorded ondansetron 4 mg disintegrating 4 mg PO Q8H PRN nausea and 10/12/22 tablet vomiting #20 tabs carvedilol 12.5 mg tablet 12.5 mg PO BID #180 tabs 02/23/25 Allergies Allergy/AdvReac Type Severity Reaction Status Date / Time No Known Allergies (No Known Allergy Verified 03/20/25 09:19 Allergies*) Review of Systems Review of Systems: Yes all other systems are reviewed and are negative [facility] Past Medical History Attestation statement: The following information was validated with the patient. Source: old records reviewed and nursing notes reviewed Medical History Osteoporosis Mild cognitive impairment Major depression Lymphedema of both lower extremities Impaired fasting glucose Hypothyroidism following radioiodine therapy Hypertensive heart disease Open compression fracture of sacrum with delayed healing GERD (gastroesophageal reflux disease) Frequent PVCs Fatty liver Failed back syndrome, lumbar B12 deficiency Cyst of pancreas Chronic prescription opiate use Chronic pain syndrome Cervical spondylosis without myelopathy Carotid stenosis, left CAD (coronary artery disease) Benign essential HTN Asthma, severe persistent Anemia Abnormal gait Hypothyroidism Hyperlipidemia Carotid artery disease Essential hypertension Social History Social History Household Members: Spouse Housing: [facility] Do you presently have visiting nurse or other home services: No Patient Tobacco Use Status: Never used Tobacco Smoked in Last 30 Days: No Use of substances other than those prescribed or required for medical reasons: No Advance Directives: No Advance Directives Information Provided: No Do you have a plan to hurt others: No Plan service: No Current occupational status: 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 Oriented X3.? No acute distress.? Head: Normocephalic, atraumatic, no step-offs or deformities Eyes: Pupils equal, round and reactive to light.? ENT: Pharynx normal.? Neck: Normal inspection.? Neck supple.? CVS: Normal heart rate and rhythm.? Pulses normal.? Respiratory: No respiratory distress.? Breath sounds diminished bilateral.? Abdomen: Soft and diffuse lower abdominal discomfort on exam..? Skin: Skin warm and dry.? Normal skin color.? Normal skin turgor.? Extremities: No lower extremity edema.? No calf ttp. 5/5 strength to bilateral upper and lower extremities Back: No midline tenderness, no C-spine tenderness, full range of motion, no CVA tenderness bilaterally Neuro: Oriented X 3.? No motor deficit.? No sensory deficit. CN 2-12 intact Vital Signs: Vital Signs - 24 hr 03/20/25 09:15 03/20/25 09:38 03/20/25 10:00 Temperature 99.2 F 99.8 F 99.7 F Pulse Rate 66 61 67 Respiratory Rate 22 H 18 20 Blood Pressure 124/79 124/79 124/78 Pulse Oximetry 95 98 100 Oxygen Delivery Method Nasal Cannula Nasal Cannula Nasal Cannula Oxygen Flow Rate 2 2 03/20/25 12:00 03/20/25 14:00 03/20/25 15:31 Temperature 99.5 F 99.5 F 0 F L Pulse Rate 66 62 76 Respiratory Rate 15 19 20 Blood Pressure 128/68 146/76 H 161/97 H Pulse Oximetry 100 100 98 Oxygen Delivery Method Nasal Cannula Nasal Cannula Room Air Oxygen Flow Rate 2 03/20/25 16:31 03/20/25 16:32 Temperature Pulse Rate 70 Respiratory Rate 20 Blood Pressure Pulse Oximetry 70 L Oxygen Delivery Method Room Air Oxygen Flow Rate BMI result Body Mass Index 27.2 Vital signs state Course Reevaluation(s) Reevaluation #1: CBC with a normocytic anemia. Chemistry unremarkable. Normal lipase. D-dimer positive therefore CTA ordered Flu, COVID negative Urine pending Time: 10:25 Reevaluation #2: Chest x-ray with no acute findings. CT abdomen and pelvis with no acute findings for lower abdominal pain. Severe stenosis of upper abdominal aorta and the at the level of the SMA, severe stenosis of the SMA origin. Severe stenosis and resultant occlusion of the proximal right common iliac artery morning previous fem-fem bypass graft CTA of the chest with no pulmonary embolism and minimal scattered ground-glass opacities which maybe small area of infection or inflammation. Urine still pending Time: 13:00 Reevaluation #3: Urine negative Time: 14:25 Additional Reevaluation(s): I did have my attending who feels like she is safe for discharge home. He will speak to patient 1621 Patient had an ambulatory prior to DC. She desaturated 70% w/ ambulation and was wheeled back to her room she became very tachypnic. Based off her CT findings and recent hospital admission will give vanco and zosyn to cover hospital aquired PNA Medications Administered Discontinued Medications Generic Name Dose Route Start Last Admin Trade Name Freq PRN Reason Stop Dose Admin Albuterol/Ipratropium 3 ml 03/20/25 15:39 03/20/25 16:31 Albuterol/Iprat 2.5/0.5mg 3 Ml Ampul.Neb INHALE 03/20/25 15:40 3 ml ONCE ONE Administration Iohexol 100 ml 03/20/25 12:00 03/20/25 12:00 Iohexol 350 Mg/Ml 100 Ml Infus..Btl IV 03/20/25 12:01 85 ml ONCE ONE Administration Medical Decision Making Medical Decision Making [facility] Narrative: 0930 79-year-old female presents with lower abdominal discomfort and she feels like she is unable to catch her breath. Physical exam diffuse lower abdominal discomfort with diminished breath sounds bilaterally. I am concerned for UTI and possible pulmonary embolism. Other differentials include viral illness, pneumonia, gastritis, gastroenteritis. Lower abdominal discomfort unlikely appendicitis as patient does not have her appendix, low suspicion for diverticulitis, pancreatitis, cholecystitis, acute abdomen. Unlikely ACS Plan labs, imaging Differential Diagnosis Differential Diagnoses: The differential diagnosis associated with the presentation includes ( I am concerned for UTI and possible pulmonary embolism. Other differentials include viral illness, pneumonia, gastritis, gastroenteritis. Lower abdominal discomfort unlikely appendicitis as patient does not have her appendix, low suspicion for diverticulitis, pancreatitis, cholecystitis, acute ab) Admission/Observation Consideration of admission/observation: Escalation of care including admission/observation considered Lab Data [facility] Lab Attestation statement: I reviewed the patient's lab results. 03/20/25 09:57 03/20/25 09:57 Labs: Lab Results 03/20/25 03/20/25 03/20/25 Range/Units 09:57 10:03 13:31 WBC 7.5 (4.8-10.8) X10*3/uL RBC 3.44 L (4.20-5.50) X10*6/uL Hgb 10.1 L (12.0-16.0) g/dl Hct 31.0 L (37.0-47.0) % MCV 90.1 (80.0-98.0) fL MCH 29.4 (27.0-33.0) pg MCHC 32.6 (31.0-35.0) g/dl RDW 12.9 (11.0-16.0) % Plt Count 155 L (160-400) X10*3/uL MPV 9.2 L (9.4-12.3) fL Immature Gran % (Auto) 0.4 (0.0-0.4) % Neut % (Auto) 69.9 (45-73) % Lymph % (Auto) 18.9 L (20-40) % [place] % (Auto) 8.0 (2-11) % Eos % (Auto) 2.3 (0-4) % Baso % (Auto) 0.5 (0-2) % Lymph # (Auto) 1.4 (1.2-4.9) X10*3/uL [place] # (Auto) 0.6 (0.1-1.2) X10*3/uL Eos # (Auto) 0.2 (0.0-0.4) X10*3/uL Baso # (Auto) 0.0 (0.0-0.2) X10*3/uL Abs Immat Gran (auto) 0.03 (0.00-0.03) X10*3/uL Absolute Neuts (auto) 5.3 (2.0-8.3) x10*3/uL Absolute Nucleated RBC 0.000 (0.0-0.012) X10*3/uL Nucleated RBC % (auto) 0.0 (0.0-0.2) /100WBC D-Dimer High Sensitivty 701 NG/ML Sodium 138 (135-145) mmol/L Potassium 4.9 (3.3-5.1) mmol/L Chloride 98 (96-108) mmol/L Carbon Dioxide 28 (22-29) mmol/L Anion Gap 17 (12-20) BUN 13 (9-16) mg/dL Creatinine 1.13 (0.5-1.4) mg/dL Estim Creat Clear Calc 31.5 Estimated GFR 46 Random Glucose 110 (60-115) mg/dL Calcium 9.4 (8.4-10.2) mg/dL Magnesium 2.3 (1.6-2.6) mg/dL Total Bilirubin 1.0 (0.0-1.0) mg/dL AST 45 H (5-31) U/L ALT 12 (0-31) U/L Alkaline Phosphatase 43 (39-117) U/L B-Natriuretic Peptide 100 (<100) pg/mL Total Protein 7.3 (6.5-8.0) g/dL Albumin 4.4 (3.5-5.0) g/dL Lipase 26 (8-78) U/L Urine Color Yellow Urine Appearance Clear Urine pH 7.5 (5.0-9.0) Ur Specific [place] 1.020 (1.005-1.025) Urine Protein Negative (Neg-Trace) mg/dL Urine Glucose (UA) Negative (Negative) mg/dL Urine Ketones Negative (Negative) mg/dL Urine Blood Negative (Negative) Urine Nitrite Negative (Negative) Ur Leukocyte Esterase Negative (Negative) COVID-19 (GARY) Negative (Negative) COVID-19 Clin Com See Note Influenza Type A (ANATOLIY) Negative (Negative) Influenza Type B (ANATOLIY) Negative (Negative) Influenza A & B Note See Note Independent Interpretation I performed an independent interpretation of an: EKG, Plain X-Ray and CT Scan Radiology Impression Discussion of test interpretation with radiology: I have reviewed the radiologist's reading. External Record Review External record reviewed: Inpatient record, Office record, Outpatient record, Prior outpatient labs, Prior outpatient radiology and Primary care record Critical Care Time Critical Care Time Critical Care Time: Yes Total Critical Care Time: 45 Attestation: I attest to this time spent taking care of the patient, obtaining history, physical, reviewing labs, imaging, treatment of patients condition +/- specialist/hospitalist consult +/- procedure Discharge Plan Discharge Clinical Impression: Abdominal pain, Hypoxia, Pneumonia Patient Disposition: Admitted As Inpatient Additional Instructions: Take your medications as prescribed. If you were prescribed antibiotics today, it is important that you take your medication to their entirety, do not skip any doses, do not finish them early. Follow-up with your primary care provider this week. Return to the emergency department with new or worsening symptoms. Such as fevers, chills, chest pain, shortness of breath, nausea, vomiting, dizziness, headache, vision changes, lethargy In case of emergency call 911 Interventions: ED Discharge Assessment Last Done: 03/20/25 15:31 Print Language: Botswanan
--- NOTE | 2025-03-20 09:42 | PC.NURSE ---
79 F presents to ED with lower abdominal pain since d/c on 02/19 and SOB. RR even but a bit labored, elevated rate, lung sounds clear bilat and spo2 in high 90s on baseline 2L NC. Pt denies any CP, c/o 02/03 lower abdominal pain but denies n/v/c/d or urinary issues. A+Ox4, calm, cooperative, ambulates with a walker sometimes.
[2025-03-20 10:02] LABS: Hematocrit 31.0 % (37.0-47.0); Hemoglobin 10.1 g/dl (12.0-16.0); Imm Gran Abs Auto 0.03 X10*3/uL (0.00-0.03); Imm Gran Pct Auto 0.4 % (0.0-0.4); Lymphocytes Absolute Auto 1.4 X10*3/uL (1.2-4.9); MANUAL DIFF FLAG NO; Mean Corpuscular HGB Conc 32.6 g/dl (31.0-35.0); Mean Corpuscular Hemoglobin 29.4 pg (27.0-33.0); Mean Corpuscular Volume 90.1 fL (80.0-98.0); NRBC Abs Auto 0.000 X10*3/uL (0.0-0.012); NRBC Pct Auto 0.0 /100WBC (0.0-0.2); Platelet Count 155 X10*3/uL (160-400); Red Blood Count 3.44 X10*6/uL (4.20-5.50); White Blood Count 7.5 X10*3/uL (4.8-10.8)
--- OUTSIDE RECORDS SUMMARY | 2025-03-20 10:11 | XMS_ITS | Clinical Summary ---
Author Organization [facility] ity Address [address] [place] [address] Care Team Providers Care Linoleum Floor Layer Name Role Phone Chino Vasquez MD Primary Care Provider [phone] Social History Tobacco Use Types Packs/Day Years [...] age to complete this topic Care Teams Linoleum Floor Layer Relationship Specialty Start Date End Date Chino Vasquez MD [address] [place] PCP - General Polysomnograph Tech 04/30/17
--- OUTSIDE RECORDS SUMMARY | 2025-03-20 10:11 | XMS_ITS | Patient Health Record ---
[facility] [place] Address [address] [place] [address] Care Team Providers Care Service Captain Name Role Phone Solange Starr Primary Care Provider Virginia Momin Unavailable [phone] Allergies Allergen (clinical drug ingredient) Drug/Non Drug [...] Unknown Gabapentin Unknown Beclomethasone Dipropionate Unknown Calcitonin ([place]) Unknown oxyCODONE HCl Active Lisinopril Unknown Tamoxifen [...] Vaccine Route Administration Date Status Comme nts COVID-19 Pfizer BioNTech Vaccine Unknown 07/13/2021 Administered First Dose: 08/29/2020 Second Dose:09/19/20 Influenza Unknown 03/28/2024 Administered Social History Tobacco Use: Social History Observation [...] W/U Status Risk Notes Problem Plantar wart (90462731) Plantar wart (B07.0) Active confirmed Problem 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) Active confirmed Vital Signs Blood pressure diastolic 80 mm Hg 01/25/2025 Height 4 ft 11 in in 01/25/2025 Blood pressure systolic 120 mm Hg 01/25/2025 Weight 134 lbs 01/25/2025 BMI 27.06 kg/m2 01/25/2025 Encounters Encounter Location Date Provider Diagnosis [facility] [address] [place] [address] 05/12/2024 Virginia Solisroni Tinea unguium B35.1 ; Pain in toe of left foot M79.675 ; Pain in toe of right foot M79.674 ; Right foot pain M79.671 and Plantar wart B07.[address] [address] 08/11/2024 Virginia Willa Tinea unguium B35.1 ; Pain in toe of left foot M79.675 ; Pain in toe of right foot M79.674 ; Right foot pain M79.671 and Plantar wart B07.[address] [address] 01/25/2025 Virginia Willa Tinea unguium B35.1 ; Plantar wart B07.0 ; Pain in toe of left foot M79.675 ; Pain in toe of right foot M79.674 ; Right foot pain M79.671 and Bilateral atherosclerosis of legs I70.[address] [address] 11/10/2024 Virginia Adame Assessments Encounter Date Diagnosis [...] X ray : Foot, right 2V 06/07/2015 24443-Agkb Destruction, 08-1006/07/2015 94168-Mxew Destruction, -01/16/2017 21337-Jdkuxwol Plate 03/24/2017 43645- Debride <25 sq cm 04/07/2017 Next Appt Details Provider Name:Virginia tamayo, 04/26/2025 02:30:00 PM, [address] [place], [address], Insurance Providers Payer Name Payer Address Payer Phone Subscriber Number Group Number Insured Name Patient Relationship to Insured Coverage Start Date Coverage End Date Medicare National [employer] [address] [place] [address] [id number] Lisa Damon Self - patient is the insured [facility] [address] [place] [address] [id number] Lisa Damon Self - patient is the insured Medical (General) History Medical History History ICD Code Arthritis asthma Back,Hip,and Knee pain Broken bones Cancer Hypertension Poor circulation Reflux Sciatica Thyroid disorder Measles Mumps Chicken pox Anemia CAD (Cholesterol) Cataracts Surgical History Surgery Date(Month/Year) breast surgery 2013 back surgery 2011, 2014 bypass surgery 04/2016 appendectomy- removed ends large and sma ll colon 12/21/2020 Hospitalization History Reason Date(Month/Year) [facility] virus 08/2022 [facility] gout 08/2022
[2025-03-20 10:21] LABS: D Dimer High Sensitivity 701 NG/ML
[2025-03-20 10:28] LABS: Alanine Aminotransferase 12 U/L (0-31); Albumin Level 4.4 g/dL (3.5-5.0); Alkaline Phosphatase 43 U/L (39-117); Anion Gap 17 (12-20); Aspartate Amino Transferase 45 U/L (5-31); Blood Urea Nitrogen 13 mg/dL (9-16); Calcium 9.4 mg/dL (8.4-10.2); Carbon Dioxide 28 mmol/L (22-29); Chloride 98 mmol/L (96-108); Creatinine Clr Calc Pharmacy 31.5; Estimated Glomerular Filt Rate 46; Lipase 26 U/L (8-78); Magnesium 2.3 mg/dL (1.6-2.6); Potassium 4.9 mmol/L (3.3-5.1); Sodium 138 mmol/L (135-145); Total Protein 7.3 g/dL (6.5-8.0)
[2025-03-20 10:31] LABS: B Type Natriuretic Peptide 100 pg/mL (<100)
[2025-03-20 10:40] LABS: COVID-19 Test Negative (Negative); IDNOW Serial# 55D5AD1C; IDNOW Serial# 58CA691E; Influenza B2 Negative (Negative)
--- NOTE | 2025-03-20 11:13 | MHC.EDTECH ---
atempted to walk to bathroom pt increase sob, attempted the bedpan pt couldn't go. RN sreekanth gil/ solar fabrication technician notifed
[2025-03-20] MEDS: iohexoL 350 MG/ML 100 ML INFUS..BTL IV (12:00)
[2025-03-20 13:43] LABS: Appearance Urine Clear; Glucose Urine UA Negative (Negative); PH 7.5 (5.0-9.0); Specific Gravity - Urine 1.020 (1.005-1.025)
--- NOTE | 2025-03-20 15:20 | PC.NURSE ---
pt was being d/c home by another rn, pt is quite tachypnic at this time, breathing around 28, sating well anywhere from 95-98% on 2l, pt was asked to go back home to get the pt;s oxygen tank so they have one for the ride home. pt rings her noonan stating that she is feeling really sob at this time, tiffanie jaeger, aware and plan to give an breathing treatment
[2025-03-20] MEDS: Albuterol/Iprat 2.5/0.5MG 3 ML AMPUL.NEB INHALE (16:31)
--- NOTE | 2025-03-20 16:31 | PC.NURSE ---
did a walking oxygen trail without pt's prn oxygen as she reports does not use much, pt dropped to 70% on room air and extremely tachypnec around 30 plan to admit to the hospital
--- NOTE | 2025-03-20 17:08 | PM.IMHP ---
History of Present Illness Date of Service: 03/20/25 Chief Complaint: Shortness of breath 79 years old woman with past medical history significant for right chronic shoulder pain on oxycodone, COPD on home oxygen 2 L/min, essential hypertension, depression, hypothyroidism and hyperlipidemia presents with complaints of lower abdominal pain which is diffuse in nature which she describes as aching and constant. She was recently hospitalized proximally 1 month prior for same. She states that over this past several days she can not catch her breath. Abdominal workup essentially unremarkable however when patient ambulated sats dropped to 70. CTA negative for PE however did show scattered ground-glass opacities with some bronchial wall thickening. Review of Systems Review of Systems: Denies chest pain Admits to shortness of breath with minimal exertion Denies nausea vomiting diarrhea Admits to diffuse lower abdominal pain that is vague and constant in nature Denies fever chills PMFSH Medical History Osteoporosis Mild cognitive impairment Major depression Lymphedema of both lower extremities Impaired fasting glucose Hypothyroidism following radioiodine therapy Hypertensive heart disease Open compression fracture of sacrum with delayed healing GERD (gastroesophageal reflux disease) Frequent PVCs Fatty liver Failed back syndrome, lumbar B12 deficiency Cyst of pancreas Chronic prescription opiate use Chronic pain syndrome Cervical spondylosis without myelopathy Carotid stenosis, left CAD (coronary artery disease) Benign essential HTN Asthma, severe persistent Anemia Abnormal gait Hypothyroidism Hyperlipidemia Carotid artery disease Essential hypertension Social History Household Members: Sp[facility] Do you presently have visiting nurse or other home services: No Patient Tobacco Use Status: Never used Tobacco Smoked in Last 30 Days: No Use of substances other than those prescribed or required for medical reasons: No Advance Directives: No Advance Directives Information Provided: No Do you have a plan to hurt others: No Plan service: No Current occupational status: 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 Meds Allergies Allergy/AdvReac Type Severity Reaction Status Date / Time No Known Allergies (No Known Allergy Verified 03/20/25 09:19 Allergies*) Active Medications: Current Medications Acetaminophen (Acetaminophen 325 Mg Tablet) 650 mg PO Q6H PRN PRN Reason: Pain, Mild 1-3,fever,headache Al Hydroxide/Mg Hydroxide (Magnesium Hydrox/Alum Hydrox 30 Ml Oral.Susp) 30 ml PO Q4H PRN PRN Reason: Heartburn Albuterol/Ipratropium (Albuterol/Iprat 2.5/0.5mg 3 Ml Ampul.Neb) 3 ml INHALE Q4H PRN PRN Reason: Shortness of Breath/Wheezing Calcium Carbonate (Calcium Carbonate 750 Mg Tab.Chew) 750 mg PO Q4H PRN PRN Reason: Heartburn Enoxaparin Sodium (Enoxaparin Sodium 40 Mg/0.4 Ml Syringe) 40 mg SUBCUT Q24H [facility] Vancomycin HCl 1,500 mg/ (Sodium Chloride) 500 mls @ 333.333 mls/hr IV ONCE ONE Stop: 03/20/25 17:51 Magnesium Hydroxide (Milk Of Magnesia 30 Ml Oral.Susp) 30 ml PO DAILY PRN PRN Reason: Constipation Melatonin (Melatonin 3 Mg Tablet) 6 mg PO BEDTIME PRN PRN Reason: Insomnia Ondansetron HCl (Ondansetron Hcl 4 Mg/2 Ml Vial) 4 mg IVPUSH Q8H PRN PRN Reason: Nausea and Vomiting Oxycodone HCl (Oxycodone Hcl Immed Release 5 Mg Tablet) 5 mg PO Q6H PRN PRN Reason: Pain, Severe (Pain Scale 7-10) Sodium Chloride (0.9 % Sodium Chloride Flush 3 Ml Syringe) 3 ml IVFLUSH [facility] Home Medications ?Medication ?Instructions ?Recorded ?Confirmed ?Last Taken ?Type albuterol sulfate 90 mcg/actuation 180 mcg inhalation Q4H PRN 12/07/21 02/20/25 Unknown History aerosol inhaler (Ventolin HFA) Shortness Of Breath Or Wheezing clopidogrel 75 mg tablet 75 mg PO DAILY 12/07/21 02/20/25 02/19/25 History ezetimibe 10 mg tablet 10 mg PO DAILY 12/07/21 02/20/25 02/19/25 History fluoxetine 40 mg capsule 40 mg PO DAILY 12/07/21 02/20/25 02/19/25 History pantoprazole 20 mg tablet,delayed 20 mg PO BID@0630,1630 12/07/21 02/20/25 02/19/25 History release rosuvastatin 10 mg tablet 10 mg PO BEDTIME 12/07/21 02/20/25 02/18/25 History furosemide 20 mg tablet 20 mg PO BID 02/05/22 02/20/25 02/19/25 History potassium chloride 20 mEq 20 meq PO DAILY 10/12/22 02/20/25 02/19/25 History tablet,extended release(part/cryst) levothyroxine 112 mcg tablet 112 mcg PO DAILY@0600 02/19/25 02/20/25 02/19/25 History oxycodone 5 mg tablet 5 mg PO TID PRN Pain 02/19/25 02/20/25 Unknown History Physical Exam Vital Signs and Narrative: Vital Signs: Last Vital Signs Temp 0 F L 03/20/25 15:31 Pulse 70 03/20/25 16:32 Resp 20 03/20/25 16:32 BP 161/97 H 03/20/25 15:31 Pulse Ox 70 L 03/20/25 16:31 O2 Del Method Room Air 03/20/25 16:31 O2 Flow Rate 2 03/20/25 12:00 Oxygen Flow Rate 2 03/20/25 09:15 BMI result Body Mass Index 27.2 Const: Other: Awake alert no acute distress able to speak in short sentences Resp: Other: Diminished throughout with scant expiratory wheezes Cardio: Other: No S4; positive S1-S2; no S3 murmurs rubs or gallops GI: Other: Soft nontender nondistended normoactive bowel sounds Extrem: Other: No edema bilaterally Results Labs 03/20/25 09:57 03/20/25 09:57 Labs: Laboratory Results - last 24 hr 03/20/25 03/20/25 03/20/25 09:57 10:03 13:31 MCV 90.1 MCH 29.4 MCHC 32.6 RDW 12.9 Plt Count 155 L MPV 9.2 L Immature Gran % (Auto) 0.4 Neut % (Auto) 69.9 Lymph % (Auto) 18.9 L [place] % (Auto) 8.0 Eos % (Auto) 2.3 Baso % (Auto) 0.5 Lymph # (Auto) 1.4 [place] # (Auto) 0.6 Eos # (Auto) 0.2 Baso # (Auto) 0.0 Abs Immat Gran (auto) 0.03 Absolute Neuts (auto) 5.3 Absolute Nucleated RBC 0.000 Nucleated RBC % (auto) 0.0 D-Dimer High Sensitivty 701 Anion Gap 17 Estim Creat Clear Calc 31.5 Estimated GFR 46 Random Glucose 110 Calcium 9.4 Magnesium 2.3 Total Bilirubin 1.0 AST 45 H ALT 12 Alkaline Phosphatase 43 B-Natriuretic Peptide 100 Total Protein 7.3 Albumin 4.4 Lipase 26 Urine Color Yellow Urine Appearance Clear Urine pH 7.5 Ur Specific [place] 1.020 Urine Protein Negative Urine Glucose (UA) Negative Urine Ketones Negative Urine Blood Negative Urine Nitrite Negative Ur Leukocyte Esterase Negative COVID-19 (GARY) Negative COVID-19 Clin Com See Note Influenza Type A (ANATOLIY) Negative Influenza Type B (ANATOLIY) Negative Influenza A & B Note See Note Assessment and Plan (1) Bronchopneumonia: Status: Acute (2) Benign essential HTN: Status: Acute (3) CAD (coronary artery disease): Status: Acute Plan 79-year-old female with the aforementioned past medical history presents with diffuse lower abdominal pain and shortness of breath similar to last admission 1 month ago. Patient's workup including abdominal CT and labs failed to demonstrate an etiology for her abdominal pain. When ambulated prior to discharge it was noted that her sats dropped to 70%. They reversed with supplemental O2. Subsequent CTA of the chest failed to demonstrate a PE however did demonstrate ground-glass appearance throughout with some bronchial wall thickening. 1. Bronchopneumonia -vancomycin/Zosyn (1)... Given recent admission we will treat as hospital-acquired -pulse dose methylprednisolone -DuoNebs q.4 hours while awake -titrate oxygen to maintain sats greater than or equal to 90% 2. Hypertension -acceptable control on current therapies -adjust as indicated 3. Coronary artery disease -stable and well compensated -continue outpatient dosing of Coreg and valsartan 4. CKD stage 4 -appears at baseline -follow renals/divalents Full code Lovenox Will require at least 2 midnights going forward of inpatient stay for IV antibiotics and steroids to treat bronchopneumonia. This can not be achieved a lesser acute setting Quality Stroke Does the patient have a stroke diagnosis?: No VTE Prior VTE?: No VTE Risk Level:: Medical - moderate - high VTE Device Contraindication: Treatment Not Indicated VTE Drug Contraindication: N/A - Med Ordered
--- NOTE | 2025-03-20 17:13 | PC.NURSE ---
attempted iv access, hard stick no iv access at this time
--- NOTE | 2025-03-20 17:35 | PHA.MEDREC ---
Pharmacy Consult ? Medication Reconciliation Pharmacy has completed the medication reconciliation. Spoke to patient at bedside, she was not able to name medications by herself. Went down list of recent claims and she confirmed what I listed. Last visit she and her insisted she takes clopidogrel and rosuvastatin, but there was no recent claim history. I asked several times if we were missing anything and she said no. She also verified she only uses [facility] in [place]
--- NOTE | 2025-03-20 17:43 | PC.NURSE ---
delay in abx administration do to hard iv access, josé the proved got an IV access with ultrasound in the left forearm
--- NOTE | 2025-03-20 21:36 | PC.NURSE ---
L FA IV line infiltrated while Vanco was running. Ab stopped, IV line removed. Swelling, redness noted at the IV site. Dressing and ice applied. New line 22G started L wrist. Pt tolerated well. Ab restarted. Monitoring is ongoing.
[2025-03-21] VITALS (7 sets, daily range): BP systolic 97–140; BP diastolic 54–80; PULSE 61–76; RESP 12–20; TEMP 36.4–37.4; O2SAT 97–100; BMI 25.7
[2025-03-21 07:41] LABS: Alanine Aminotransferase 6 U/L (0-31); Albumin Level 4.3 g/dL (3.5-5.0); Alkaline Phosphatase 43 U/L (39-117); Anion Gap 24 (12-20); Aspartate Amino Transferase 23 U/L (5-31); Blood Urea Nitrogen 12 mg/dL (9-16); Calcium 9.7 mg/dL (8.4-10.2); Carbon Dioxide 19 mmol/L (22-29); Chloride 102 mmol/L (96-108); Creatinine Clr Calc Pharmacy 32.7; Estimated Glomerular Filt Rate 50; Potassium 3.9 mmol/L (3.3-5.1); Sodium 141 mmol/L (135-145); Total Protein 6.7 g/dL (6.5-8.0)
[2025-03-21] MEDS: oxyCODONE HCl Immed Release 5 MG TABLET PO ×3 (10:40→21:26)
--- NOTE | 2025-03-21 13:36 | MHC.CM.PN ---
IMM 03/21/25, Pt. lives with her , she does not currently have home health services, has used [facility] in the recent past very briefly, is fine with [facility] if that is rec. at [place]. PCP confirmed: Solange Starr. She has completed HCP, copy requested. For DME, she has a walker, home O2 from [facility]. Family to transport home at DC. DCP; home, with services, CM to follow for DC needs.
[2025-03-21] MEDS: 0.9 % Sodium Chloride Flush 3 ML SYRINGE IVFLUSH ×2 (15:29→21:25)
--- NOTE | 2025-03-21 16:17 | P.PNIM_ITS ---
Subjective Subjective Date of Service: 03/21/25 Interval History: Breathing better Having nonproductive cough No significant chest pain No fever or chills Review of Systems Review of Systems: Yes all other systems are reviewed and are negative Physical Exam 2 Exam: Exam: General: AOx3, no acute distress Resp: Mild wheezing, bilaterally diminished CVS: S1, S2, RRR GI: +BS, NT, no distention Skin: Warm, dry Neuro: Cranial nerves II-XII grossly intact bilaterally. Motor grossly intact bilaterally Extremities: No edema Psych: Appropriate affect Vital Signs: Vital Signs: Last Vital Signs Temp 99.3 F 03/21/25 15:29 Pulse 71 03/21/25 15:29 Resp 18 03/21/25 15:29 BP 128/78 03/21/25 15:29 Pulse Ox 98 03/21/25 15:29 O2 Del Method Nasal Cannula 03/21/25 15:29 O2 Flow Rate 1 03/21/25 15:29 Oxygen Flow Rate 2 03/20/25 09:15 BMI result Body Mass Index 25.7 Objective Data Active Medications Acetaminophen (Acetaminophen 325 Mg Tablet) 650 mg PO Q6H PRN PRN Reason: Pain, Mild 1-3,fever,headache Last Admin: 03/20/25 20:58 Dose: 650 mg Documented By: CRISTIAN Al Hydroxide/Mg Hydroxide (Magnesium Hydrox/Alum Hydrox 30 Ml Oral.Susp) 30 ml PO Q4H PRN PRN Reason: Heartburn Albuterol Sulfate (Albuterol Sulfate 90 Mcg 8 Gm Inhaler) 2 puff INHALE Q4H PRN PRN Reason: Shortness Of Breath Or Wheezing Albuterol/Ipratropium (Albuterol/Iprat 2.5/0.5mg 3 Ml Ampul.Neb) 3 ml INHALE Q4H PRN PRN Reason: Shortness of Breath/Wheezing Calcium Carbonate (Calcium Carbonate 750 Mg Tab.Chew) 750 mg PO Q4H PRN PRN Reason: Heartburn Carvedilol (Carvedilol 12.5 Mg Tablet) 12.5 mg PO BID [facility]; Protocol Last Admin: 03/21/25 15:25 Dose: 12.5 mg Documented By: BEBETO Ezetimibe (Ezetimibe 10 Mg Tablet) 10 mg PO DAILY [facility] Last Admin: 03/21/25 15:28 Dose: 10 mg Documented By: BEBETO Enoxaparin Sodium (Enoxaparin Sodium 40 Mg/0.4 Ml Syringe) 40 mg SUBCUT Q24H [facility] Last Admin: 03/20/25 18:17 Dose: 40 mg Documented By: DANISH Fluoxetine HCl (Fluoxetine Hcl 20 Mg Capsule) 40 mg PO DAILY [facility] Last Admin: 03/21/25 15:27 Dose: 40 mg Documented By: BEBETO Furosemide (Furosemide 20 Mg Tablet) 20 mg PO BID [facility]; Protocol Last Admin: 03/21/25 15:25 Dose: 20 mg Documented By: BEBETO Piperacillin Sod/Tazobactam (Sod 3.375 gm/ Sodium Chloride) 50 mls @ 100 mls/hr IV Q6H [facility] Last Infusion: 03/21/25 13:47 Dose: Infused Documented By: BEBETO Vancomycin HCl 1,000 mg/ (Sodium Chloride) 270 mls @ 270 mls/hr IV Q24H [facility] Levothyroxine Sodium (Levothyroxine Sodium 112 Mcg Tablet) 112 mcg PO DAILY@0600 [facility] Magnesium Hydroxide (Milk Of Magnesia 30 Ml Oral.Susp) 30 ml PO DAILY PRN PRN Reason: Constipation Melatonin (Melatonin 3 Mg Tablet) 6 mg PO BEDTIME PRN PRN Reason: Insomnia Methylprednisolone Sodium Succinate (Methylprednisolone Sod Succ 40 Mg/Ml Vial) 40 mg IVPUSH Q8H [facility] Last Admin: 03/21/25 10:37 Dose: 40 mg Documented By: BEBETO Multivitamins/Vitamin C (Multivitamin Tablet) 1 tab PO DAILY [facility] Last Admin: 03/21/25 15:27 Dose: 1 tab Documented By: BEBETO Omeprazole (Omeprazole 20 Mg Capsule.) 20 mg PO BID@0630,1630 [facility] Last Admin: 03/21/25 15:25 Dose: 20 mg Documented By: BEBETO Ondansetron HCl (Ondansetron Hcl 4 Mg/2 Ml Vial) 4 mg IVPUSH Q8H PRN PRN Reason: Nausea and Vomiting Oxycodone HCl (Oxycodone Hcl Immed Release 5 Mg Tablet) 5 mg PO Q6H PRN PRN Reason: Pain, Severe (Pain Scale 7-10) Last Admin: 03/21/25 10:40 Dose: 5 mg Documented By: HO.RUANES Pharmacy Consult (Consult Rx Vancomycin Dosing) 1 each MISCELLANE DAILY PRN PRN Reason: Consult order Sodium Chloride (0.9 % Sodium Chloride Flush 3 Ml Syringe) 3 ml IVFLUSH QSHIFT [facility] Last Admin: 03/21/25 15:29 Dose: 3 ml Documented By: BEBETO Labs 03/20/25 09:57 03/21/25 06:38 Labs: Laboratory Results - last 24 hr 03/20/25 03/21/25 17:01 06:38 Anion Gap 24 H Estim Creat Clear Calc 32.7 Estimated GFR 50 Random Glucose 134 H Lactic Acid 1.2 Calcium 9.7 Total Bilirubin 1.1 H AST 23 ALT 6 Alkaline Phosphatase 43 Total Protein 6.7 Albumin 4.3 Assessment and Plan (1) Bronchopneumonia: Status: Acute (2) Acute on chronic hypoxic respiratory failure: Status: Acute Plan 79-year-old female with the aforementioned past medical history presents with diffuse lower abdominal pain and shortness of breath similar to last admission 1 month ago. Patient's workup including abdominal CT and labs failed to demonstrate an etiology for her abdominal pain. When ambulated prior to discharge it was noted that her sats dropped to 70%. They reversed with supplemental O2. Subsequent CTA of the chest failed to demonstrate a PE however did demonstrate ground-glass appearance throughout with some bronchial wall thickening. 1. Bronchopneumonia -vancomycin/Zosyn (2)... Given recent admission 1 month ago for the same, will treat as hospital-acquired -pulse dose methylprednisolone -DuoNebs q.4 hours while awake -titrate oxygen to maintain sats greater than or equal to 90% 2. Hypertension -acceptable control on current therapies -adjust as indicated 3. Coronary artery disease -stable and well compensated -continue outpatient dosing of Coreg and valsartan 4. CKD stage 4 -appears at baseline -follow renals/divalents Full code Lovenox Pt requires continued hospitalization for administration of supplemental oxygen, IV steroids, and continued bronchodilator therapy. Quality Stroke Does the patient have a stroke diagnosis?: No VTE Prior VTE?: No VTE Risk Level:: Medical - moderate - high VTE Device Contraindication: Treatment Not Indicated VTE Drug Contraindication: N/A - Med Ordered
[2025-03-22 03:23] VITALS: BP 124/59; PULSE 60; RESP 20; TEMP 36.9; O2SAT 98
[2025-03-22 03:27] VITALS: BP 105/56; PULSE 87; RESP 20; TEMP 36.6; O2SAT 92
[2025-03-22] MEDS: oxyCODONE HCl Immed Release 5 MG TABLET PO (05:43)
[2025-03-22 07:23] LABS: Creatinine Clr Calc Pharmacy 28.6; Estimated Glomerular Filt Rate 43
[2025-03-22 07:45] VITALS: BP 160/84; PULSE 66; RESP 18; TEMP 36.6; O2SAT 97
[2025-03-22] MEDS: 0.9 % Sodium Chloride Flush 3 ML SYRINGE IVFLUSH (09:43)
--- NOTE | 2025-03-22 11:25 | PM.DS ---
DS: Providers Provider Date of Service: 03/22/25 Date of admission: 03/20/25 16:53 Date of discharge: 03/22/25 Primary care physician: Solange Starr NP DS: Diagnosis Discharge Diagnosis (1) Bronchopneumonia: Status: Acute (2) Acute on chronic hypoxic respiratory failure: Status: Acute DS: Summary Hospital Course Hospital Course: From admision HPI: Date of Service: 03/20/25 Chief Complaint: Shortness of breath 79 years old woman with past medical history significant for right chronic shoulder pain on oxycodone, COPD on home oxygen 2 L/min, essential hypertension, depression, hypothyroidism and hyperlipidemia presents with complaints of lower abdominal pain which is diffuse in nature which she describes as aching and constant. She was recently hospitalized proximally 1 month prior for same. She states that over this past several days she can not catch her breath. Abdominal workup essentially unremarkable however when patient ambulated sats dropped to 70. CTA negative for PE however did show scattered ground-glass opacities with some bronchial wall thickening. Hospital Course: Pt was admitted to the hospital for acute on chronic hypoxic respiratory failure in the setting of bronchopneumonia. Given that pt was recently hospitalized for similar symptoms as well as pneumonia, pt was treated with IV antibiotics: vancomycin and Zosyn. Patient's other workup including abdominal CT and labs failed to demonstrate any etiology for her abdominal pain. Hospital stay was unremarkable and pt was soon weaned to her home 2 L O2 and breathing improved. Pt reports breathing currently around baseline. Lungs CTA though diminished. Pt will be discharged home on Augmentin 875 mg b.i.d. x5 days as well as doxycycline 100 mg b.i.d. x5 days. Pt will be given prednisone 40 mg daily x3 days. Pt should continue her home inhalers. For hypertension, continue carvedilol For HLD continue ezetimibe For hypothyroidism, continue levothyroxine For CKD 3, appears stable at baseline Time Attestation Discharge Coordination Time (in mins): 32 Quality: Safe Use of Opioids Does Pt have an Active Cancer Diagnosis on the Problem List?: No Quality: Stroke Does the patient have a stroke diagnosis?: No Physical Exam Exam: Exam: General: AOx3, no acute distress Resp: CTA bilaterally though significantly diminished CVS: S1, S2, RRR GI: +BS, NT, no distention Skin: Warm, dry Neuro: Cranial nerves II-XII grossly intact bilaterally. Motor grossly intact bilaterally Extremities: No edema Psych: Appropriate affect Vital Signs: Vital Signs: Last Vital Signs Temp 97.9 F 03/22/25 07:45 Pulse 66 03/22/25 07:45 Resp 18 03/22/25 07:45 BP 160/84 H 03/22/25 07:45 Pulse Ox 97 03/22/25 07:45 O2 Del Method Nasal Cannula 03/22/25 07:45 O2 Flow Rate 1 03/22/25 07:45 Oxygen Flow Rate 2 03/20/25 09:15 BMI result Body Mass Index 25.7 DS: Data Data Completed and Pending Labs on day of discharge: Laboratory Results - last 24 hr 03/21/25 03/22/25 15:57 06:32 Creatinine 1.21 Estim Creat Clear Calc 28.6 Estimated GFR 43 Random Vancomycin 12.4 L Preliminary micro results at discharge 03/20/25 17:03 Blood Culture - Preliminary Blood - Venous No growth after 24 hours. 03/20/25 17:01 Blood Culture - Preliminary Blood - Venous No growth after 24 hours. Discharge Plan Discharge Anticipated Discharge Date/Time: 03/22/25 10:57 Patient Disposition: Home, Self-Care Discharge Diagnosis: Acute on chronic hypoxic respiratory failure in the setting of bronchopneumonia Referrals: Solange Starr NP [Primary Care Provider, Internal Medicine] Discharge Medications: New amoxicillin-pot clavulanate 875-125 mg tablet 1 tab PO BID Qty: 11 0RF Rx Instructions: Take 1 tablet twice a day with food for the next 5 days, starting evening of 03/22 and ending the evening of 03/27. doxycycline monohydrate 100 mg capsule 100 mg PO BID Qty: 11 0RF Rx Instructions: Take 1 capsule twice a day with food for the next 5 days, starting evening of 03/22 and ending the evening of 03/27. prednisone 20 mg tablet 40 mg PO DAILY Qty: 6 0RF Rx Instructions: Take two tablets (for 40mg total) daily for the next three days, starting 03/23 and ending 03/25. Continued levothyroxine 112 mcg tablet 112 mcg PO DAILY@0600 oxycodone 5 mg tablet 5 mg PO TID PRN (Reason: Pain) carvedilol 12.5 mg Tablet 12.5 mg PO BID Qty: 180 0RF Protocol: Hold for SBP/HR < HOLD for SBP < : 90 HOLD for HR < : 60 multivitamin Tablet 1 tab PO DAILY furosemide 20 mg tablet 20 mg PO BID albuterol sulfate [Ventolin HFA] 90 mcg/actuation HFA aerosol inhaler 180 mcg inhalation Q4H PRN (Reason: Shortness Of Breath Or Wheezing) ezetimibe 10 mg tablet 10 mg PO DAILY fluoxetine 40 mg capsule 40 mg PO DAILY pantoprazole 20 mg tablet,delayed release (DR/EC) 20 mg PO BID@0630,1630 Discharge Orders: Discharge Order (Routine); Ordered 03/22/25 Ordered By: Diana Ball Activity on Discharge: As tolerated Stand Alone Forms: Patient Portal Discharge page Print Language: Croatian Activity Restrictions/Additional Instructions: Take your medications as prescribed. If you were prescribed antibiotics today, it is important that you take your medication to their entirety, do not skip any doses, do not finish them early. Follow-up with your primary care provider this week. Return to the emergency department with new or worsening symptoms. Such as fevers, chills, chest pain, shortness of breath, nausea, vomiting, dizziness, headache, vision changes, lethargy In case of emergency call 911 Care Plan Goals: See below Health Concerns: Bronchopneumonia, complicated Acute on chronic hypoxic respiratory failure Abdominal pain Plan of Treatment: You initially presented to the ED for multiple complaints, including lower abdominal pain and SOB. GI workup was negative for acute abdomen, but you were noted to desat to 70% with ambulation. CTA of chest was negative for pulmonary embolism but positive for ground-glass opacities suspicious for pneumonia. You were covered with IV antibiotics given recent hospitalization for similar pulmonary complaints. Breathing has improved and currently back to baseline, and you will be discharged home on oral antibiotics. -- for pneumonia, take Augmentin 875 mg twice a day with food and doxycycline 100 mg twice a day with food for the next 5 days, starting on the evening of 03/22 and ending on the evening of 03/27 -- for COPD exacerbation, you will be prescribed a short course of prednisone 40 mg daily for the next 3 days -- continue all of your other home medications Assessment: See discharge summary Patient Instructions: Abdominal Pain (ED)
--- NOTE | 2025-03-22 12:06 | MHC.CM.PN ---
Addendum entered by Lisa Marsh RN 03/22/25 13:10: Karthik vna responded in [facility] and report pt is active w/home PT. Original Note: CM MET W/PT AND AT BEDSIDE, BOTH DECLINE NEED FOR VNA SERVICES, PT MEDICALLY CLEARED AND WILL TRANSPORT PT.
--- NOTE | 2025-03-24 07:19 | P.CDIM_ITS ---
PROVIDER RESPONSE TEXT: To clarify, the appropriate diagnosis supported by the clinical indicators: Acute on chronic hypoxic respiratory failure: Suspected QUERY TEXT: PHYSICIAN'S DOCUMENTATION REQUEST Date of Query: 03/22/2025 08:08 AM EDT Patient Name: Lisa Damon Admit Date: 03/20/2025 Dear Diana ANNE, A review of the medical record indicates additional documentation may be needed. Please review below and update the documentation accordingly. Clinical Indicators: Progress note dated 03/21/25- Assessment and Plan: Acute on chronic hypoxic respiratory failure Bronchopneumonia Titrate oxygen to maintain sats greater than or equal to 90 %. COPD on home O2 2 L RR 24 Pulse ox 95/70 L 2 L NC If possible, please further clarify the acuity of the respiratory failure that was only documented in the Assessment and Plan in progress note 03/21/26: If agree with this diagnosis, possible to place it within the written Plan of your progress note? Acute respiratory failure with hypoxia possible, probable, suspected etc. Acute on chronic hypoxic respiratory failure possible, probable, suspected, cannot rule out etc. Other (explain) Clinically unable to determine (explain) Thank you, Kelly Caldera, CCS, CDIS Use of terms such as suspected, likely, concern for, or probable (associated with a specific diagnosis that is being evaluated, monitored, or treated as if it exists) are acceptable and can be coded in the inpatient setting, when documented at the time of discharge. Please use your independent medical judgment in providing your response. THIS QUERY IS PART OF THE PERMANENT MEDICAL RECORD
== END 2025-03-22 14:23 | disposition home health service (06) | DRG 193 ==
LOC: HO.ED 16:27 → HO.EDOVER 17:00 → HO.IMC 03-21 00:55
PROVIDERS: Physician Assistant; Admitting Provider Hospitalist; Emergency Provider Emergency Medicine; PCP Nurse Practitioner Family; Visit Provider Student in an Organized Health Care Education/Training Program
DX: J18.0 Bronchopneumonia, unspecified organism (principal); J96.21 Acute and chronic respiratory failure with hypoxia; J44.0 Chronic obstructive pulmonary disease with (acute) lower respiratory infection; N18.4 Chronic kidney disease, stage 4 (severe); I25.10 Atherosclerotic heart disease of native coronary artery without angina pectoris; I12.9 Hypertensive chronic kidney disease with stage 1 through stage 4 chronic kidney disease, or unspecified chronic kidney disease; E89.0 Postprocedural hypothyroidism; G31.84 Mild cognitive impairment of uncertain or unknown etiology; Z20.822 Contact with and (suspected) exposure to COVID-19; Z99.81 Dependence on supplemental oxygen; Z87.01 Personal history of pneumonia (recurrent); Z87.891 Personal history of nicotine dependence; Z79.890 Hormone replacement therapy; Z79.899 Other long term (current) drug therapy
CPT/HCPCS: 36415; 71045; 71275; 74177; 80053; 80202; 81003; 82565; 83605; 83690; 83735; 83880; 85025; 85379; 87040; 87502; 87635; 93005; 94640; 99285; J1650; J2543; J2919; J3374; Q9967

== ENCOUNTER → 2025-03-20 09:23 | Outpatient (BNV) | payer MEDICARE, SELFPAY | PROVIDERS: Emergency Provider Emergency Medicine; PCP Nurse Practitioner Family; Visit Provider Radiology Diagnostic Radiology | DX: K57.10 Diverticulosis of small intestine without perforation or abscess without bleeding (principal); R07.89 Other chest pain; R06.02 Shortness of breath | CPT/HCPCS: 71045; 71275; 74177 ==

== ENCOUNTER → 2025-03-20 09:23 | Outpatient (BNV) | payer MEDICARE, SELFPAY | PROVIDERS: Admitting Provider Hospitalist; Emergency Provider Emergency Medicine; PCP Nurse Practitioner Family; Visit Provider Internal Medicine | DX: I44.0 Atrioventricular block, first degree (principal) | CPT/HCPCS: 93010 ==

== ENCOUNTER → 2025-03-20 16:53 | Outpatient (BNV) | payer MEDICARE, SELFPAY | PROVIDERS: Admitting Provider Hospitalist; Emergency Provider Emergency Medicine; PCP Nurse Practitioner Family; Visit Provider Hospitalist | DX: J18.0 Bronchopneumonia, unspecified organism (principal); J96.21 Acute and chronic respiratory failure with hypoxia | CPT/HCPCS: 99233 ==

== ENCOUNTER 2025-04-18 11:21 | Outpatient (AMB) | payer MEDICARE, SELFPAY ==
--- OUTSIDE RECORDS SUMMARY | 2024-11-10 10:30 | XMS_ITS ---
[facility] Address [address] [place] [address] Care Team Providers Care Drum Sander Offbearer Name Role Phone Solange Starr Primary Care Provider Virginia Momin Unavailable [phone] Allergies Allergen (clinical drug ingredient) Drug/Non Drug Allergy documented on EMR Reaction Allergy Type Onset Date Status ibuprofen Advil irritated stomach Drug Allergy Active Aleve irritated stomach Drug Allergy Active Motrin irritated stomach Drug Allergy Active Medications Medication SIG (Take, Route, Frequency, Duration) Notes Start Date End Date Status Ammonium Lactate 12 % 1 application Externally Twice a day; Duration: 30 days Active Chlorthalidone 25 MG 1 tablet in the morning with food Orally Once a day; Duration: 30 day(s) Not-Taking Calcium Carbonate 500 MG 1 tablet Orally Once a day; Duration: 30 day(s) Not-Taking Docusate Sodium 100 MG 1 capsule as need ed Orally Once a day; Duration: 30 day(s) Not-Taking Cyanocobalamin 1000 MCG 1 tablet Orally Once a day; Duration: 30 day(s) Not-Taking Pantoprazole Sodium 20 MG 1 tablet Orall y Once a day Active Hydrocortisone 2.5 % as directed Externally Active Levothyroxine Sodium 125 MCG 1 tablet in the morning on an empty stomach Orally Once a day Active Cholecalciferol 25 MCG (1000 UT) 1 capsule Orally Once a day Active Aspirin 81 MG 1 tablet Orally Once a day Active FLUoxetine HCl 40 MG 1 capsule Orally On ce a day; Duration: 30 day(s) Active Clopidogrel Bisulfate 75 MG 1 tablet Orally Once a day; Duration: 30 day(s) Active Carvedilol 6.25 MG 1 tablet with food Orally Twice a day; Duration: 30 day(s) Active Euthyrox 125 MCG 1 tablet in the morning on an empty stomach Orally Once a day; Duration: 30 day(s) Active Rosuvastatin Calcium 10 MG 1 tablet Oral ly Once a day; Duration: 30 day(s) Active Fluticasone Propionate HFA 110 MCG/ACT 1 puff Inhalation Twice a day Active Ezetimibe 10 MG 1 tablet Orally Once a day; Duration: 30 day(s) Active Stool Softener Activ e Bevespi Aerosphere 9-4.8 MCG/ACT 2 puffs Inhalation Twice a day Active Vitamin D Active oxyCODONE HCl Unknow n Calcium Active Lisinopril Unknown Tamoxifen Citrate 20 MG 1 tablet Orally Once a day Unknown Gabapentin Unknown Beclomethasone Dipropionate Unknown Calcitonin (Camilla) Unknown Amlodipine & Diet Manage Prod 2.5 MG Orally Unknown Atorvastatin Calcium Unknown zzzCompression Stockings Unknown HYDROmorphone HCl 4 MG 1 tablet as neede d Orally Not-Taking Albuterol Sulfate Un known Acetaminophen 325 MG 1 tablet as needed Orally every 4 hrs Not-Taking Encounters Encounter Location Date Provider Diagnosis [facility] [address] [address] 11/10/2024 Virginia Adame Plan Of Treatment Next Appt Details Provider Name:Virginia tamayo, 04/26/2025 02:30:00 PM, [address] [place], [address], Progress Notes * Lisa SHIRLEY ADOB: [birth year] (79 yo M)Acc No.[id number]:11/10/2024 Progress Note Patient: Lisa ARREDONDO Lupe Provider: Navarro Adame DPM :1945 A ge:79 Y S ex:Male Date:11/10/2024 Address:[address] [place] [id number] Pcp:Solange Starr Subjective: * Chief Complaints: * * HPI: P ainful Nails: Pt States Last PCP Visit: D ate: 1 08/28/2023 * Medical History: A rthritis, Asthma, Back,Hip,and Knee pain, Broken bones, Cancer, Hypertension, Poor circulation, Reflux, Sciatica, Thyroid disorder, Measles, Mumps, Chicken pox, Anemia, CAD (Cholesterol), Cataracts. * Medications: T aking Calcium , Taking Vitamin D , Taking Stool Softener , Taking Bevespi Aerosphere 9-4.8 MCG/ACT Aerosol 2 puffs Inhalation Twice a day , Taking Fluticasone Propionate HFA 110 MCG/ACT Aerosol 1 puff Inhalation Twice a day , Taking Ezetimibe 10 MG Tablet 1 tablet Orally Once a day , Taking Euthyrox 125 MCG Tablet 1 tablet in the morning on an empty stomach Orally Once a day , Taking Rosuvastatin Calcium 10 MG Tablet 1 tablet Orally Once a day , Taking Clopidogrel Bisulfate 75 MG Tablet 1 tablet Orally Once a day , Taking Carvedilol 6.25 MG Tablet 1 tablet with food Orally Twice a day , Taking FLUoxetine HCl 40 MG Capsule 1 capsule Orally Once a day , Taking Aspirin 81 MG Tablet Chewable 1 tablet Orally Once a day , Taking Cholecalciferol 25 MCG (1000 UT) Capsule 1 capsule Orally Once a day , Taking Hydrocortisone 2.5 % Cream as directed Externally , Taking Levothyroxine Sodium 125 MCG Tablet 1 tablet in the morning on an empty stomach Orally Once a day , Taking Pantoprazole Sodium 20 MG Tablet Delayed Release 1 tablet Orally Once a day , Taking Ammonium Lactate 12 % Cream 1 application Externally Twice a day , Not-Taking/PRN Docusate Sodium 100 MG Capsule 1 capsule as needed Orally Once a day , Not-Taking/PRN Cyanocobalamin 1000 MCG Tablet 1 tablet Orally Once a day , Not-Taking/PRN Chlorthalidone 25 MG Tablet 1 tablet in the morning with food Orally Once a day , Not-Taking/PRN Calcium Carbonate 500 MG Tablet Chewable 1 tablet Orally Once a day , Not-Taking/PRN Acetaminophen 325 MG Tablet 1 tablet as needed Orally every 4 hrs , Not-Taking/PRN HYDROmorphone HCl 4 MG Tablet 1 tablet as needed Orally , Unknown Albuterol Sulfate , Unknown Amlodipine & Diet Manage Prod 2.5 MG Miscellaneous Orally , Unknown Atorvastatin Calcium , Unknown Beclomethasone Dipropionate , Unknown Calcitonin (Camilla) , Unknown zzzCompression Stockings , Unknown Gabapentin , Unknown Lisinopril , Unknown Tamoxifen Citrate 20 MG Tablet 1 tablet Orally Once a day , Unknown oxyCODONE HCl * Allergies: A dvil: irritated stomach, Aleve: irritated stomach, Motrin: irritated stomach. Objective: * Vitals: Assessment: Plan: * Treatment: * Images: * The named appointment provid er may or may not be the originator of this progress note, and it is not deemed complete until electronically signed by the appointment provider. Sign off status: Pending * Provider: Navarro Adame DPM Date: 0 11/10/2024 Generated for Kerrie chapa/Bipin/Hafsa on: 0 04/18/2025 02:01 PM EDT History and Physical Notes * HPI (History of Present Illness) Category Sub-Category Detail Notes Category Not es Painful Nails Pt States Last PCP Visit: Date:: 06/27/2024
--- NOTE | 2025-04-18 11:25 | A.OFFVIS_ITS ---
Vital Signs 04/18/25 11:32 Height 4 ft 11 in Weight 134 lb BMI 27.1 BP 142/58 H Blood Pressure Location Rt brachial Position Sitting Respiration 16 Pulse 80 Pulse Source Pulse Oximeter Intake Visit Reasons: CHRONIC BILATERAL SHOULDER PAIN E Business Consultant Required: No Allergies No Known Allergies (No Known Allergies*) Allergy (Verified 04/18/25 11:35) Medication List - Last Reconciled 04/18/25 by Rima Lou LPN albuterol sulfate 90 mcg/actuation (Ventolin HFA) 180 mcg inhalation Q4H PRN carvedilol 12.5 mg See Protocol PO BID cholecalciferol (vitamin D3) 25 mcg PO DAILY ezetimibe 10 mg PO DAILY furosemide 20 mg PO BID levothyroxine 112 mcg PO DAILY@0600 multivitamin 1 tab PO DAILY oxycodone 5 mg PO TID PRN pantoprazole 20 mg PO BID@0630,1630 rosuvastatin 10 mg PO DAILY valsartan 40 mg PO DAILY HPI HPI CHRONIC BILATERAL SHOULDER PAIN: Details: History of Present Illness The patient is an 79-year-old female presenting with chronic pain in various parts of the body, including the neck, shoulders, knees, and ankles. The pain is described as aching and stabbing, particularly in the neck and shoulder regions, with an intensity of 7-8/10, worsening with movement and most severe in the morning. She also experiences burning sensations in her feet and aching in her knees and ankles, which interfere with her sleep. The patient reports abdominal pain of unknown etiology, which has persisted for a few months. She has undergone several hospital visits with MRIs and CAT scans, but no definitive cause has been identified. A recent urine sample ruled out a urinary infection. The patient has a history of bronchial infection, which affected her breathing and required hospitalization. She has been on oxycodone for pain management for several years, with recent recommendations to transition to buprenorphine to minimize risks associated with long-term opioid use. Pain Description - Onset: Pain is worst in the morning and exacerbated by movement. - Quality: Aching and stabbing pain in the neck and shoulders, burning in the feet. - Location: Neck, shoulders, knees, ankles, and feet. - Interference: Pain interferes with sleep. Physical Exam - Appears afebrile. - Alert and oriented. - Mood and affect appropriate. - Follows and participates in conversation appropriately. - Respiratory effort is unlabored. Results - Imaging: Multiple MRIs and CAT scans performed with no definitive findings for abdominal pain. - Labs: Urine sample negative for infection. Pain Management - Affect: Pain impacts sleep and daily activities. - Analgesia: Currently using oxycodone, transitioning to buprenorphine. - Adverse Effects: Concerns about long-term opioid use. - Activities of Daily Living: Pain interferes with sleep and mobility. - Aberrant Drug Related Behaviors: No evidence of misuse reported. [facility] Medical History Osteoporosis Mild cognitive impairment Major depression Lymphedema of both lower extremities Impaired fasting glucose Hypothyroidism following radioiodine therapy Hypertensive heart disease Open compression fracture of sacrum with delayed healing GERD (gastroesophageal reflux disease) Frequent PVCs Fatty liver Failed back syndrome, lumbar B12 deficiency Cyst of pancreas Chronic prescription opiate use Chronic pain syndrome Cervical spondylosis without myelopathy Carotid stenosis, left CAD (coronary artery disease) Benign essential HTN Asthma, severe persistent Anemia Abnormal gait Hypothyroidism Hyperlipidemia Carotid artery disease Essential hypertension Social History Household Members: Spouse Housing: [facility] Do you presently have visiting nurse or other home services: No ( currently helps per pt) Patient Tobacco Use Status: Former Tobacco user service: No Current occupational status: 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 1. Chronic Pain In The Neck, Shoulders, Knees, And Ankles - Plan to transition from oxycodone to buprenorphine to manage pain and reduce opioid-related risks. - Consideration of cortisone injections for shoulder pain management. 2. Abdominal Pain Of Unknown Etiology - Continue monitoring and follow-up with primary care for further evaluation. 3. Buprenorphine Induction Recommendations for PCP after Weaning Off Oxycodone * Day 1 * Apply Butrans 5 mcg/hour patch (rotate site weekly) * Provide rescue medication (e.g., acetaminophen) for breakthrough pain during initial days * Day 2?7 * Ensure patch is replaced after 7 days with a new one on a different site * Week 2 * Reassess pain control and function * If pain is not adequately controlled: * Increase to Butrans 7.5 mcg/hour patch (3-4 days after previous dose) * Continue rescue analgesia as needed * Week 3?4 * If still insufficient pain relief and well tolerated: * Consider Butrans 10 mcg/hour * Reassess benefit vs side effects * Max dose: 20 mcg/hour Discussion Notes I discussed with the patient the plan to transition from oxycodone to buprenorphine to manage her chronic pain, highlighting the benefits of reduced risk of constipation and sedation compared to long-term opioid use. We also considered cortisone injections for her shoulder pain, and I explained the procedure and its potential benefits. The patient was informed about the need for continued monitoring of her abdominal pain with her primary care provider. Patient Instructions - Follow up with your primary care provider for ongoing evaluation of abdominal pain and transition from oxycodone to buprenorphine as discussed. - Schedule an appointment for cortisone injection for shoulder pain management. Coding Level of Care Code New Pt Level 4 (96821) Diagnoses Chronic prescription opiate use Z79.891 Chronic pain syndrome G89.4
[2025-04-18 11:32] VITALS: BP 142/58; PULSE 80; RESP 16; BMI 27.1
--- OUTSIDE RECORDS SUMMARY | 2025-04-18 14:01 | XMS_ITS | Clinical Summary ---
Author Organization [facility] ity Address [address] [place] [address] Care Team Providers Care Painter Helper Sign Name Role Phone Chino Vasquez MD Primary Care Provider [phone] Social History Tobacco Use Types Packs/Day Years [...] 06/25/2022 Social Influencers of Health Screening 06/25/2022 Depression Screening 07/28/2024 COVID-19 Vaccine ( - 2023-2 5 season) 2025 Influenza Vaccine (#1) 2025 HIB Vaccines Aged [...] age to complete this topic Care Teams Painter Helper Sign Relationship Specialty Start Date End Date Chino Vasquez MD [address] [place] PCP - General Welt Beater 04/30/17
--- OUTSIDE RECORDS SUMMARY | 2025-04-18 14:01 | XMS_ITS | Clinical Summary ---
Author Organization [facility] Address [address] [address] Phone Care Team Providers Care Phlebotomy Supervisor Name Role Phone Chino Vasquez MD Primary Care Provide r Allergies Active Allergy Reactions Criticality Noted Date Comments Amlodipine 02/24/2025 Atorvastatin 02/24/2025 Lisinopril 02/24/2025 Spironolactone 02/24/2025 Thiazides 02/24/2025 thiazide diuretics Medications albuterol 90 mcg/actuation inhaler 5 Active carvedilol (COREG) 25 MG tablet 5 Active ezetimibe (ZETIA) 10 mg tablet 5 Active FLUoxetine (PROZAC) 40 MG capsule 5 Active furosemide (LASIX) 20 MG tablet 5 Active levothyroxine (SYNTHROID, LEVOTHROID) 112 MCG tablet 5 Active oxyCODONE 5 MG immediate release tablet 5 Active pantoprazole (PROTONIX) 20 MG tablet 5 Active aspirin 81 mg chewable tablet Take 81 mg by mouth daily. Active rosuvastatin (CRESTOR) 10 MG tablet Take 10 mg by mouth daily. Active budesonide (PULMICORT) 0.5 mg/2 mL nebulizer solution Take 0.5 mg by nebulization daily. Active cyanocobalamin, vitamin B-12, 1000 MCG tablet Take 1,000 mcg by mouth daily. Active calcium carbonate (OS-NIURKA) 1,250 mg (500 mg elemental) tablet Take 1 tablet by mouth daily. Active revefenacin (YUPELRI) solution Take 175 mcg by nebulization daily. Active cholecalciferol (VITAMIN D3) 25 MCG (1,000 unit) tablet Take 1,000 Units by mouth every other day. Active arformoterol (BROVANA) 15 mcg/2 mL Nebu Take 15 mcg by nebulization 2 (two) times a day. Active diclofenac sodium (VOLTAREN) 1 % Gel Apply 1 Application topically daily. for R shoulder pain Active docusate sodium (COLACE) 100 MG capsule Take 100 mg by mouth as needed for moderate constipation. Active OXYGEN-AIR DELIVERY SYSTEMS MISC 2 L/min by Nasal route continuous. Active Active Problems Problem Noted Date Diagnosed Date MCI (mild cognitive impairment) 02/03/2025 Lumbar spondylosis 09/22/2014 Overview (07/04/2015): Osteoarthritis of lumbar spine; Multilevel, severe S/P laminectomy 09/22/2014 Overview (07/04/2015): S/P Laminectomy; L5-S1 Inguinal hernia 09/22/2014 Overview (07/04/2015): Inguinal hernia; Possible left Osteoporosis 09/22/2014 Overview (07/04/2015): Osteoporosis Compression fracture of lumbar vertebra 09/22/19 15 Overview (07/04/2015): Compression fracture of lumbar spine; L5 Malignant neoplasm of breast 09/22/2014 Overview (07/04/2015): Malignant tumor of breast; s/p lumpectomy + XRT Encounters Date Type Department Care Team Description 04/06/2025 3:00 PM EDT [facility] [address] [place] [address] Shelley Guy, PT PT NON OASIS DISCHARGE NON VISIT/TELEPHONE 03/30/2025 Home Care Visit [facility] [address] [place] [phone] Shelley Guy, PT TELEPHONE ENCOUNTER 03/24/2025 Home Care Visit [facility] [address] [place] [address] Shelley Guy, PT TELEPHONE ENCOUNTER 03/23/2025 Home Health Resumption of Care Planning [facility] [address] [place] [address] Virginia Bustos, ESAU 03/22/2025 3:30 PM EDT Home Care Visit [facility] [address] [place] [address] Shannon Sawn, PT PT OASIS TRANSFER 03/10/2025 Episode Documentatio n Update [facility] [address] [place] [address] Eri Reagan 03/08/2025 10:00 AM EDT [facility] [address] [place] [address] Shannon Swan, PT PT HOME VISIT 03/03/2025 10:30 AM EDT Home [facility] [address] [place] [phone] Shannon Swan, PT PT HOME VISIT 03/01/2025 10:00 AM EDT Home Care Visit [facility] [address] [place] [phone] Shannon Swan, PT PT HOME VISIT 02/24/2025 10:00 AM EDT Home Care Visit [facility] [address] [place] [phone] Shannon Swan, PT PT OASIS START OF CARE (SOC) 02/24/2025 Plan of Care Documentation [facility] [address] [place] [address] 02/03/2025 10:30 AM EDT Office Visit [facility] [address] [place] [address] Dav Davis DO MCI (mild cognitive impairment) (Primary Dx); Encounter for medication review; Encounter for support to caregiver; Frequent falls; Chronic hypoxic respiratory failure, on home oxygen therapy; At increased risk for social isolation 02/03/2025 Orders Only [facility] [address] [place] [phone] Homehealth, Interface Provider, from Last 3 Months Social History Tobacco Use Types Packs/Day Years Used Date Smoking Tobacco: Never Smokeless Tobacco: Former Tobacco Cessation:Counseling Given: Not Answered Home Health Assessment: Transportation Answer Date Recorded Lack of Transportation (Medical) No 04/06/2025 Lack of Transportation (Non-Medical) No 04/06/2025 Patient Unable or Declines to Respond No 04/06/2025 Education Answer Date Recorded Are you interested in more education? Not on francisco e 07/26/2024 Are you concerned about learning? Not on file 07/26/2024 No 07/26/2024 No 07/26/2024 Digital Access Answer Date Recorded No 07/26/2024 No 07/26/2024 Reliable internet access at home? Not on file 07/26/2024 Device with a working camera? Not on file Comments Unknown Sex and Gender Information Value Date Recorded Sex Assigned at Not on file Legal Sex Female 11:42 AM EST Gender Identity Not on file Sexual Orientation Not on file Last Filed Vital Signs Vital Sign Reading Time Taken Comments Blood Pressure 130/75 03/08/2025 10:28 AM EDT Pulse 62 03/08/2025 10:28 AM EDT Temperature 36.8 C (98.3 F) 03/08/2025 10:28 AM EDT Respiratory Rate 16 03/08/2025 10:28 AM EDT Oxygen Saturation 97% 03/08/2025 10:28 AM EDT Inhaled Oxygen Concentration - - Weight 60.8 kg (134 lb) 02/24/2025 11:29 AM EDT Height 149.9 cm (4' 11 ) 02/24/2025 11:29 AM EDT Body Mass Index 27.06 02/24/2025 11:29 AM EDT Plan of Treatment Upcoming Encounters Date Type Department Care Team (Late st Contact Info) Description 08/19/2025 11:30 AM EST Office Visit [facility] [address] [place] [address] Dav Davis DO [address] [place] [address] [email or web address] Health Maintenance Due Date Last Done Comments LIPID PANEL 1945 TSH LEVEL 1945 ZOSTER VACCINES (1 of 2) 11/03/1963 OSTEOPOROSIS SCREENING INITIAL (ONE-TIME) 2009 INFLUENZA VACCINE (#1) 2025 , 04/26/2022, 06/19/2021 COVID-19 VACCINE ( season) 2025 06/16/2023, 07/05/2021, 09/19/2020, Additional history exists DEPRESSION SCREENING 02/03/2026 02/03/2025 Adult Td,Tdap Booster 11/15/2031 11/14/2021 PNEUMOCOCCAL VACCINES (50+ years) Completed 12/26/2022, 06/19/2021 RSV VACCINE Completed 06/16/2023 SMOKING STATUS SCREENING (Once After 26 Yrs) Completed 02/03/2025 HEPATITIS A VACCINES Aged Out No long er eligible based on patient's age to complete this topic HIB VACCINES Aged Out No longer eligi ble based on patient's age to complete this topic MENINGOCOCCAL VACCINES (ACWY) Aged Out No longer eligible based on patient's age to complete this topic MENINGOCOCCAL VACCINES (B) Aged Out N o longer eligible based on patient's age to complete this topic Medical Devices Not on file Insurance MEDICARE PART A & B [employer] CROSS MEDEX SUPPLEMENT MEDICARE PART A & B 9GAG MEDEX SUPPLEMENT MEDICARE PART A & B Member Subscriber Plan / Payer ( fective 2009-Present) Name:Lisa Damon Member ID:[id number] Relation to Subscriber:Self Name:Lias Damon Subscriber ID:[id number] Payer ID:[id number] Group ID:Not on file Type:Medicare Address: [employer]ureProof [address] [place] [phone] [employer] CROSS MEDEX SUPPLEMENT MEDICARE PART A & B 9GAG MEDEX SUPPLEMENT MEDICARE PART A & B Member Subscriber Plan / Payer (Ef fective 2009-Present) Name:Lisa Damon Member ID:[id number] Relation to Subscriber:Self Name:Lisa Damon Subscriber ID:[id number] Payer ID:[id number] Group ID:Not on file Type:Medicare Address: Capt[employer]Proof [address] [place] [phone] [employer] CROSS MEDEX SUPPLEMENT MEDICARE PART A & B BLUE CROSS MEDEX SUPPLEMENT MEDICARE PART A & B 9GAG MEDEX SUPPLEMENT MEDICARE PART A & B 9GAG MEDEX SUPPLEMENT MEDICARE PART A & B [facility] MEDEX SUPPLEMENT Care Teams Phlebotomy Supervisor Relationship Specialty Start Date End Date Chino Vasquez MD [address] [place] [phone] PCP - General Internal Medicine 01/20/25 Additional Source Comments The information contained in this document represents components of the legal health record. It is not the complete legal health record.[facility]
--- OUTSIDE RECORDS SUMMARY | 2025-04-18 14:01 | XMS_ITS | Encounter Summary ---
Author Organization [facility] Address [address] [facility] [address] [place] [address] Phone Care Team Providers Care Biomedical Equipment Support Specialist Name Role Phone Chino Vasquez MD Primary Care Provide r Encounter Details Date Type Department Care Team (Late Contact Info) Description 03/23/2025 Home Health Resumption of Care Planning [facility] [address] [place] [address] Virginia Bustos RN [address] [place] [address] [email or web address] Social History Tobacco Use Types Packs/Day Years Used Date Smoking Tobacco: Never Smokeless Tobacco: Former Home Health Assessment: Transportation Answer Date Recorded Lack of Transportation (Medical) No 02/24/2025 Lack of Transportation (Non-Medical) No 02/24/2025 Patient Unable or Declines to Respond No 02/24/2025 Education Answer Date Recorded Are you interested [...] on file Sexual Orientation Not on file documented as of this encounter Plan of Treatment Upcoming Encounters Date Type Department Care Team (Late Contact Info) Description 08/19/2025 11:30 AM EST Office Visit [facility] [address] [place] [address] Dav Davis DO [address] [place] [address] [email or web address] documented as of this encounter Visit Diagnoses Not on filedocumented in this encounter Additional Health Concerns Assessment Noted Time PHQ-2 Depression Total Score: 4 02/04/20 10:34 AM EDT documented as of this encounter Care Teams Biomedical Equipment Support Specialist Relationship Specialty Start Date End Date Chino Vasquez MD [address] [place] [address] PCP - General Internal Medicine 01/20/25 documented as of this encounter Additional Source Comments The information contained in this document represents components of the legal health record. It is not the complete legal health record.[facility]
--- OUTSIDE RECORDS SUMMARY | 2025-04-18 14:01 | XMS_ITS | Patient Health Record ---
Author Organization [facility] [place] Address [address] [facility] [place] [address] Care Team Providers Care Security Strategist Name Role Phone Solange Starr Primary Care Provider Virginia Momin Unavailable [phone] Allergies Allergen (clinical drug ingredient) Drug/Non Drug [...] Unknown Gabapentin Unknown Beclomethasone Dipropionate Unknown Calcitonin ([place]) Unknown oxyCODONE HCl Active Lisinopril Unknown Tamoxifen [...] W/U Status Risk Notes Problem Plantar wart (08666508) Plantar wart (B07.0) Active confirmed Problem Bilateral atherosclerosis of arteries of lower limbs (disorder) (79356793378430976 ) 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) Active confirmed Vital Signs Blood pressure diastolic 80 mm Hg 01/25/2025 Height 4 ft 11 in in 01/25/2025 Blood pressure systolic 120 mm Hg 01/25/2025 Weight 134 lbs 01/25/2025 BMI 27.06 kg/m2 01/25/2025 Encounters Encounter Location Date Provider Diagnosis [address] [address] 05/12/2024 Virginia Deep Tinea unguium B35.1 ; Pain in toe of left foot M79.675 ; Pain in toe of right foot M79.674 ; Right foot pain M79.671 and Plantar wart B07.[address] [address] 08/11/2024 Virginia Adame Tinea unguium B35.1 ; Pain in toe of left foot M79.675 ; Pain in toe of right foot M79.674 ; Right foot pain M79.671 and Plantar wart B07.[address] [address] 01/25/2025 Virginia Adame Tinea unguium B35.1 ; Plantar wart B07.0 ; Pain in toe of left foot M79.675 ; Pain in toe of right foot M79.674 ; Right foot pain M79.671 and Bilateral atherosclerosis of legs I70.[address] [address] 11/10/2024 Virginia Adame Assessments Encounter Date Diagnosis [...] X ray : Foot, right 2V 06/07/2015 31094-Bzux Destruction, 1-14 06/07/2015 94613-Gysw Destruction, 1-14 01/16/2017 61683-Rswdjods Plate 03/24/2017 55472- Debride <25 sq cm 04/07/2017 Next Appt Details Provider Name:Virginia tamayo, 04/26/2025 02:30:00 PM, [address] [facility], [place], [address], Insurance Providers Payer Name Payer Address Payer Phone Subscriber Number Group Number Insured Name Patient Relationship to Insured Coverage Start Date Coverage End Date Medicare National Govt Svcs Inc [address] [place] [address] [phone] [id number] Lisa Damon Self - patient is the insured [facility] [address] [place] [address] [id number] Lisa Damon Self - patient is the [...]
== END 2025-04-18 12:11 | disposition home or self-care (01) ==
LOC: HO.PMC 11:21
PROVIDERS: PCP Nurse Practitioner Family; Visit Provider Internal Medicine
DX: G89.4 Chronic pain syndrome (principal); Z79.891 Long term (current) use of opiate analgesic
CPT/HCPCS: 99204

== ENCOUNTER → 2025-04-18 11:21 | Outpatient (BNVA) | payer MEDICARE, SELFPAY | PROVIDERS: PCP Nurse Practitioner Family; Visit Provider Internal Medicine | DX: G89.4 Chronic pain syndrome (principal); Z79.891 Long term (current) use of opiate analgesic | CPT/HCPCS: 99202 ==

== ENCOUNTER 2025-04-29 12:13 | Outpatient (AMB) | payer MEDICARE, SELFPAY ==
--- OUTSIDE RECORDS SUMMARY | 2024-11-10 10:30 | XMS_ITS ---
[facility] Address [address] [place] [address] Care Team Providers Care Cvicu Nurse Name Role Phone Solange Starr Primary Care Provider Virginia Momin Unavailable [phone] Allergies Allergen (clinical drug ingredient) Drug/Non Drug [...] Unknown Gabapentin Unknown Beclomethasone Dipropionate Unknown Calcitonin (Tillman) Unknown Amlodipine & Diet Manage Prod 2.5 MG Orally Unknown Atorvastatin Calcium Unknown zzzCompression Stockings Unknown HYDROmorphone HCl 4 MG 1 tablet as neede d Orally Not-Taking Albuterol Sulfate Un known Acetaminophen 325 MG 1 tablet as needed Orally every 4 hrs Not-Taking Encounters Encounter Location Date Provider Diagnosis [facility] [address] [place] [address] 11/10/2024 Virginia Adame Plan Of Treatment Next Appt Details Provider Name:Virginia tamayo, 05/30/2025 11:15:00 AM, [address] [place], [address], Progress Notes * Lisa SHIRLEY ADOB: [birth year] (79 yo M)Acc No.[id number]:11/10/2024 Progress Note Patient: Lisa ARREDONDO Lupe Provider: Navarro Adame DPM :1945 A ge:79 Y S ex:Male Date:11/10/2024 Address:[address] [place] [id number] Pcp:Solange Starr Subjective: * Chief Complaints: * [...] , Unknown Beclomethasone Dipropionate , Unknown Calcitonin (Tillman) , Unknown zzzCompression Stockings , Unknown Gabapentin [...] 0 11/10/2024 Generated for Kerrie chapa/Bipin/Hafsa on: 1 01:05 PM EDT History and Physical Notes * HPI (History of Present Illness) Category Sub-Category Detail Notes Category Not es Painful Nails Pt States Last PCP Visit: Date:: 06/27/2024
--- OUTSIDE RECORDS SUMMARY | 2025-04-26 10:30 | XMS_ITS ---
Author Organization [facility] Address [address] [place] [address] Care Team Providers Care Meat Selector Name Role Phone Solange Starr Primary Care Provider Virginia Momin [phone] Encounters Encounter Location Date Provider Diagnosis [facility] [address] [place] [address] 04/26/2025 Virginia Adame Plan Of Treatment Next Appt Details Provider Name:Virginia tamayo, 05/30/2025 11:15:00 AM, [address] [facility], [place], [address], Progress Notes * Lisa SHIRLEY ADOB: [birth year] (79 yo M)Acc No.[id number]:04/26/2025 Progress Note Patient: Lisa ARREDONDO Provider: Navarro Adame DPM :1945 A ge:79 Y S ex:Male Date:04/26/2025 Address:[address] [facility] [place] [phone] Pcp:Solange Starr Subjective: * Chief Complaints: * * Medical History: Objective: * Vitals: Assessment: Plan: * Treatment: * Images: * The named appointment provid er may or may not be the originator of this progress note, and it is not deemed complete until electronically signed by the appointment provider. Sign off status: Pending * Provider: Navarro Adame DPM Date: 0 04/26/2025 Generated for Kerrie chapa/Bipin/Hafsa on: 1 01:04 PM EDT
--- NOTE | 2025-04-29 12:29 | A.OFFVIS_ITS ---
Vital Signs 04/29/25 12:31 Height 4 ft 11 in Weight 134 lb BMI 27.1 BP 110/68 Blood Pressure Location Rt brachial Position Sitting Respiration 16 Pulse 80 Pulse Source Pulse Oximeter Intake Visit Reasons: Right shoulder injection Console Operator Required: No Supervisor Broadloom: Supervisor Broadloom Present Accompanied by: Rhys Ruiz Allergies No Known Allergies (No Known Allergies*) Allergy (Verified 04/29/25 12:32) Medication List - Last Reconciled 04/29/25 by Rima Lou LPN albuterol sulfate 90 mcg/actuation (Ventolin HFA) 180 mcg inhalation Q4H PRN carvedilol 12.5 mg See Protocol PO BID cholecalciferol (vitamin D3) 25 mcg PO DAILY ezetimibe 10 mg PO DAILY furosemide 20 mg PO BID levothyroxine 112 mcg PO DAILY@0600 multivitamin 1 tab PO DAILY oxycodone 5 mg PO TID PRN pantoprazole 20 mg PO BID@0630,1630 rosuvastatin 10 mg PO DAILY valsartan 40 mg PO DAILY HPI HPI Right shoulder injection: Details: History of Present Illness The patient is an 79-year-old female presenting with pain management concerns. The patient reports pain in the arm that radiates from the neck, which has been persistent and affects her daily activities. The pain is described as originating from the neck and extending down the arm, indicating a possible cervical origin. Additionally, the patient experiences leg pain, which contributes to her overall discomfort and mobility issues. The leg pain is noted but not elaborated on in terms of specific characteristics or duration. Pain Description - Onset: Persistent pain in the arm radiating from the neck - Quality: Radiating pain from the neck down the arm - Location: Arm and neck - Exacerbating factors: Not explicitly discussed - Relieving factors: Not explicitly discussed - Interference: Affects daily activities Physical Exam - Musculoskeletal: Examination of the arm and neck region for pain assessment Pain Management - Analgesia: Initiation of buprenorphine patch for pain management - Activities of Daily Living: Pain affects daily activities, particularly due to arm and leg pain - Aberrant Drug Related Behaviors: No aberrant behaviors discussed - Affect: Not explicitly discussed - Adverse Effects: Initial use of buprenorphine patch with some improvement in knuckle pain PFSH Medical History Osteoporosis Mild cognitive impairment Major depression Lymphedema of both lower extremities Impaired fasting glucose Hypothyroidism following radioiodine therapy Hypertensive heart disease Open compression fracture of sacrum with delayed healing GERD (gastroesophageal reflux disease) Frequent PVCs Fatty liver Failed back syndrome, lumbar B12 deficiency Cyst of pancreas Chronic prescription opiate use Chronic pain syndrome Cervical spondylosis without myelopathy Carotid stenosis, left CAD (coronary artery disease) Benign essential HTN Asthma, severe persistent Anemia Abnormal gait Hypothyroidism Hyperlipidemia Carotid artery disease Essential hypertension Social History Household Members: Spouse Housing: [facility] Do you presently have visiting nurse or other home services: No ( currently helps per pt) Patient Tobacco Use Status: Former Tobacco user service: No Current occupational status: 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 Physical Exam Vital Signs: Last Vital Signs Pulse 80 04/29/25 12:31 Resp 16 04/29/25 12:31 BP 110/68 04/29/25 12:31 BMI result Body Mass Index 27.1 Office Procedures AMB Joint Injection/Aspiration Joint Injection/Aspiration Primary Site: right shoulder Injected: 40 mg of, Kenalog, with 4 mL of (ropivacaine 0.25%), in the joint and in the subcromial space Approach Used: posterolateral (US guided) Coding 48513 - Acromioclavicular with ultrasound guidance Procedure code (CPT) selection complete Assessment & Plan Assessment & Plan (1) Right shoulder pain: Code(s): M25.511 - Pain in right shoulder Category: Medical (2) Chronic pain syndrome: Code(s): G89.4 - Chronic pain syndrome Category: Medical Plan Plan Patient was informed and verbally consented to the use of an ambient scribe for clinic note documentation during this visit. 1. Pain In The Arm Radiating From The Neck - Initiated buprenorphine patch for pain management with instructions to adjust dosage as needed - Follow-up appointment scheduled in three months, with earlier visit if pain becomes unbearable 2. Leg Pain - Addressed as part of overall pain management strategy Discussion Notes I discussed with the patient the initiation of the buprenorphine patch for pain management, including the potential for dosage adjustment based on her response. We also talked about scheduling a follow-up appointment in three months, with the option to come in sooner if her pain becomes unbearable. Patient Instructions - Start using the buprenorphine patch as prescribed. - Adjust the dosage as instructed if necessary. - Schedule a follow-up appointment in three months, or sooner if pain worsens. Coding Level of Care Code Est Pt Level 4 (65415) Diagnoses Right shoulder pain M25.511 Chronic pain syndrome G89.4 CPT Codes Coding - Joint 6: 45241 - Acromioclavicular with ultrasound guidance ([id number])
[2025-04-29 12:31] VITALS: BP 110/68; PULSE 80; RESP 16; BMI 27.1
--- OUTSIDE RECORDS SUMMARY | 2025-04-29 13:05 | XMS_ITS | Patient Health Record ---
Author Organization [facility] [place] Address [address] [facility] [place] [address] Care Team Providers Care Umbrella Repairer Name Role Phone Solange Starr Primary Care Provider Virginia Momin Unavailable [phone] Allergies Allergen (clinical drug ingredient) Drug/Non Drug [...] Unknown Gabapentin Unknown Beclomethasone Dipropionate Unknown Calcitonin ([place]) Unknown oxyCODONE HCl Active Lisinopril Unknown Tamoxifen [...] W/U Status Risk Notes Problem Plantar wart (30239806) Plantar wart (B07.0) Active confirmed Problem Bilateral atherosclerosis of arteries of lower limbs (disorder) (52196366626701891 ) 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) Active confirmed Vital Signs Blood pressure diastolic 80 mm Hg 01/25/2025 Height 4 ft 11 in in 01/25/2025 Blood pressure systolic 120 mm Hg 01/25/2025 Weight 134 lbs 01/25/2025 BMI 27.06 kg/m2 01/25/2025 Encounters Encounter Location Date Provider Diagnosis [address] [address] 05/12/2024 Virginia Adame Tinea unguium B35.1 ; Pain in toe of left foot M79.675 ; Pain in toe of right foot M79.674 ; Right foot pain M79.671 and Plantar wart B07.[address] [address] 08/11/2024 Virginia Adame Tinea unguium B35.1 ; Pain in toe of left foot M79.675 ; Pain in toe of right foot M79.674 ; Right foot pain M79.671 and Plantar wart B07.[address] [address] 01/25/2025 Virginia Adame Tinea unguium B35.1 ; Plantar wart B07.0 ; Pain in toe of left foot M79.675 ; Pain in toe of right foot M79.674 ; Right foot pain M79.671 and Bilateral atherosclerosis of legs I70.[address] [address] 11/10/2024 Virginia Adame [address] [address] 04/19/2025 Virginia Adame Assessments Encounter Date Diagnosis (ICD [...] X ray : Foot, right 2V 06/07/2015 55880-Keny Destruction, -14 06/07/2015 72456-Fuqd Destruction, 1-14 01/16/2017 66254-Kmnsrlod Plate 03/24/2017 43652- Debride <25 sq cm 04/07/2017 Next Appt Details Provider Name:Virginia tamayo, 05/30/2025 11:15:00 AM, [address] [facility], [place], [address], Insurance Providers Payer Name Payer Address Payer Phone Subscriber Number Group Number Insured Name Patient Relationship to Insured Coverage Start Date Coverage End Date Medicare National Govt Svcs Inc [address] [place] [address] [id number] Lisa Damon Self - [facility] the [facility] [address] [place] [address] [phone] [id number] Lisa Damon Self - patient is the [...]
--- OUTSIDE RECORDS SUMMARY | 2025-04-29 13:05 | XMS_ITS | Encounter Summary ---
Author Organization [facility] Address [address] [facility] [address] [place] [address] Phone Care Team Providers Care Electric Pile Driver Operator Name Role Phone Chino Vasquez MD Primary Care Provide r Encounter Details Date Type Department Care Team (Late Contact Info) Description 03/23/2025 Home Health Resumption of Care Planning [facility] [address] [place] [address] Virginia Bustos RN [address] [place] [address] [email or web address] Social History Tobacco Use Types Packs/Day Years [...] 08/19/2025 11:30 AM EST [facility] Visit [facility] [address] [place] [address] Dav Davis DO [address] [place] [address] [email or web address] documented as of this encounter Visit Diagnoses Not on filedocumented in this encounter Additional Health Concerns Assessment Noted Time PHQ-2 Depression Total Score: 4 02/04/20 10:34 AM EDT documented as of this encounter Care Teams Electric Pile Driver Operator Relationship Specialty Start Date End Date Chion Vasquez MD [address] [place] [address] PCP - General Internal Medicine 01/20/25 documented as of this encounter Additional Source Comments The information contained in this document represents components of the legal health record. It is not the complete legal health record.[facility]
--- OUTSIDE RECORDS SUMMARY | 2025-04-29 13:05 | XMS_ITS | Clinical Summary ---
Author Organization [facility] ity Address [address] [place] [address] Care Team Providers Care Vehicle Dynamics Engineer Name Role Phone Chino Vasquez MD Primary Care Provider [phone]- [phone] Social History Tobacco Use Types Packs/Day Years [...] age to complete this topic Care Teams Vehicle Dynamics Engineer Relationship Specialty Start Date End Date Chino Vasquez MD [address] [place] PCP - General Bar Hostess 04/30/17
--- OUTSIDE RECORDS SUMMARY | 2025-04-29 13:05 | XMS_ITS | Clinical Summary ---
Author Organization [facility] Address [address] [address] Phone Care Team Providers Care Lathe Turner Name Role Phone Chino Vasquez MD Primary [...] Visit [facility] [address] [place] [address] Shelley Guy, PT PT NON OASIS DISCHARGE NON VISIT/TELEPHONE 03/30/2025 Home Care Visit [facility] [address] [place] [phone] Shelley Guy, PT TELEPHONE ENCOUNTER 03/24/2025 Home Care Visit [facility] [address] [place] [phone] Shelley Guy, PT TELEPHONE ENCOUNTER 03/23/2025 Home Health Resumption of Care Planning [facility] [address] [place] [address] Virginia Bustos, ESAU 03/22/2025 3:30 PM EDT Home Care Visit [facility] [address] [place] [address] Shannon Swan, PT PT OASIS TRANSFER 03/10/2025 Episode Documentatio n Update [facility] [address] [place] [address] Eri Reagan 03/08/2025 10:00 AM EDT Home Care [facility] [address] [place] [address] Shannon Swan, PT PT HOME VISIT 03/03/2025 10:30 AM EDT Home Care Visit [facility] [address] [place] [phone] Shannon Swan, PT PT HOME VISIT 03/01/2025 10:00 AM EDT Home Care Visit [facility] [address] [place] [phone] Shannon Swan, PT PT HOME VISIT 02/24/2025 10:00 AM EDT Home Care Visit [facility] [address] [place] [phone] Shannon Swan, PT PT OASIS START OF CARE (SOC) 02/24/2025 Plan of Care Documentation [facility] [address] [place] [address] 02/03/2025 10:30 AM EDT Office Visit [facility] [address] [place] [address] Dav Davis DO MCI (mild cognitive impairment) (Primary Dx); Encounter for medication review; Encounter for support to caregiver; Frequent falls; Chronic hypoxic respiratory failure, on home oxygen therapy; At increased risk for social isolation 02/03/2025 Orders Only [facility] [address] [place] [phone] Homehealth, Interface Provider, from Last 3 Months [...] 11:30 AM EST Office Visit [facility] [address] [place] [address] Dav Davis DO [address] [place] [address] [email or web address] Maintenance Due Date Last Done Comments [...] file Insurance MEDICARE PART A & B [employer]OSS MEDEX SUPPLEMENT MEDICARE PART A & B [employer] MEDEX SUPPLEMENT MEDICARE PART A & B Member Subscriber Plan / Payer ( fective 2009-Present) Name:Lisa Damon Member ID:[id number] Relation to Subscriber:Self Name:Lisa Damon Subscriber ID:[id number] Payer ID:[id number] Group ID:Not on file Type:Medicare Address: [employer] [address] [place] [phone] [employer] CROSS MEDEX SUPPLEMENT MEDICARE PART A & B [employer] MEDEX SUPPLEMENT MEDICARE PART A & B Member Subscriber Plan / Payer (Ef fective 2009-Present) Name:Lisa Damon Member ID:[id number] Relation to Subscriber:Self Name:Lisa Damon Subscriber ID:[id number] Payer ID:[id number] Group ID:Not on file Type:Medicare Address: [employer] [address] [place] [phone] [employer] CROSS MEDEX SUPPLEMENT MEDICARE PART A & B [employer] MEDEX SUPPLEMENT MEDICARE PART A & B [employer] MEDEX SUPPLEMENT MEDICARE PART A & B [employer] MEDEX SUPPLEMENT MEDICARE PART A & B [facility] MEDEX SUPPLEMENT Care Teams Lathe Turner Relationship Specialty Start Date End Date Chino Vasquez MD [address] [place] [id number] PCP - General Internal Medicine 01/20/25 Additional Source Comments The information contained in this document represents components of the legal health record. It is not the complete legal health record.[facility]
== END 2025-04-29 12:59 | disposition home or self-care (01) ==
PROVIDERS: PCP Nurse Practitioner Family; Visit Provider Internal Medicine
DX: M25.511 Pain in right shoulder (principal); G89.4 Chronic pain syndrome
CPT/HCPCS: 20606; 99214

== ENCOUNTER → 2025-04-29 12:13 | Outpatient (BNVA) | payer MEDICARE, SELFPAY | PROVIDERS: PCP Nurse Practitioner Family; Visit Provider Internal Medicine | DX: M25.511 Pain in right shoulder (principal); G89.4 Chronic pain syndrome | CPT/HCPCS: 20606; 99212 ==